=== PATIENT | male | born 1955 | race Caucasian/White ===

== ENCOUNTER 2017-06-18 13:03 | Emergency (ER) | payer MEDICAID, SELFPAY ==
[2017-06-18 13:03] VITALS: BP 172/89; PULSE 114; RESP 14; TEMP 36.9; BMI 20.3
--- NOTE | 2017-06-18 13:08 | RAD_ITS ---
STUDY: X-RAY - RIGHT ANKLE REASON FOR EXAM: Male, 62 years old. Status post fall. TECHNIQUE: 3 view(s) of the ankle. COMPARISON: None. FINDINGS: Normal visualized distal tibia and fibula. Normal medial and lateral malleoli. Normal tibiotalar articulation and ankle mortise. Normal visualized talus and calcaneus. The visualized subtalar, talonavicular, calcaneocuboid and tarsal articulations are normal. The soft tissue structures are unremarkable. RAD/Ankle min 3 Views IMPRESSION: Normal x-ray examination of the ankle. Electronically Signed: Joe Viera MD at 13:35 EST Tel , Service support ,
--- NOTE | 2017-06-18 13:40 | RAD_ITS ---
STUDY: X-RAY - RIGHT FOOT CLINICAL: Male, 62 years old. Foot pain after falling. TECHNIQUE: 3 view(s) of the foot. COMPARISON: None. FINDINGS: There is demineralization of the rear and midfoot bones. Normal visualized subtalar, talonavicular, calcaneocuboid, tarsal and tarsometatarsal articulations. Normal metatarsi. Normal metatarsophalangeal joint of the great toe. Normal tibial and fibular sesamoid bones. Normal interphalangeal joint of the great toe. Normal phalanges of the great toe. Normal second through fifth metatarsophalangeal joints. Normal interphalangeal joints and phalanges of the lesser toes. The soft tissue structures are unremarkable. RAD/Foot min 3 Views IMPRESSION: No demonstrated acute osseous injury. Electronically Signed: Joe Viera MD at 15:21 EST Tel , Service support ,
--- NOTE | 2017-06-18 13:43 | ED.DCSUM_ITS ---
- ER Visit Summary Date of Service: 06/18/17 Chief Complaint: Right ankle pain History of Present Illness: The patient is a 62 M presenting with right lower extremity pain. Patient states that he was walking down the steps and missed a step. He twisted his ankle. He has had painful ambulation since. He states he is able to walk on his heel. He had no medications at home. He does not take anticoagulants. He did not hit his head or lose consciousness. Physical Examination: Vitals are stable. Patient is afebrile. Alert no acute distress. HEENT exam is unremarkable. Lungs are clear and equal bilaterally. Heart is regular rate and rhythm. Extremities right lateral foot tenderness, no ankle or knee tenderness Skin is warm and dry. No focal neurologic deficit. Remainder of exam is unremarkable. Emergency Department Course and Treatment: He was given [place] ?1. Right ankle x -ray was ordered per nursing protocol and was normal. X-ray of the right foot was ordered and shows no acute process. Given an Aircast. Advised to follow- up with his primary care physician. Advised return ED if worsening complaints. Disposition: Discharged home Impression: Right ankle/foot injury This note was generated with [employer] dictation software. It may contain incorrect words, spelling, and punctuation that were not noted in review of the chart prior to signing ED Disposition - Plan for ED Patient: Chief Complaint: Lower Extremity Injury Referrals: Kenn Parra MD [Primary Care Provider] -
[2017-06-18] MEDS: HYDROcodone Bitartrate/Apap 5/325 Tablet PO (14:30)
--- NOTE | 2017-06-18 15:34 | ED.DEP ---
ED Disposition - Plan for ED Patient: Chief Complaint: Lower Extremity Injury Instructions: ED Sprain Ankle W X Ray Referrals: Kenn Parra MD [Primary Care Provider] -
[2017-06-18 15:58] VITALS: BP 158/75; PULSE 82; RESP 16; O2SAT 98
== END 2017-06-18 15:59 | disposition home or self-care (01) ==
PROVIDERS: Emergency Provider Emergency Medicine; Family Provider Family Medicine; PCP Family Medicine
DX: S99.911A Unspecified injury of right ankle, initial encounter (principal); S99.921A Unspecified injury of right foot, initial encounter; I25.10 Atherosclerotic heart disease of native coronary artery without angina pectoris; K21.9 Gastro-esophageal reflux disease without esophagitis; I10 Essential (primary) hypertension; X50.1XXA Overexertion from prolonged static or awkward postures, initial encounter; Y93.01 Activity, walking, marching and hiking; Y92.89 Other specified places as the place of occurrence of the external cause; Y99.8 Other external cause status
CPT/HCPCS: 73610; 73630; 99282

== ENCOUNTER → 2017-07-07 06:44 | Outpatient (CLI) | payer MEDICAID, SELFPAY ==
--- NOTE | 2017-07-07 10:03 | STRESSREP ---
Stress Test Report Pharmacologic myocardial perfusion stress test. 62-year-old man with a history of chest pain. For preoperative evaluation. Patient status post coronary bypass surgery and stenting in 2008. Stress protocol: Resting EKG demonstrates sinus rhythm with a rate of 73 bpm normal intervals and noted resting blood pressure is 132/80 mmHg. 0.4 mg of regadenoson was infused per usual protocol followed by rapid intravenous and flush injection continuous EKG monitoring was performed. The maximum heart rate attained was noted to be 95 bpm is 59% maximum predicted heart rate maximum workload was 1 metabolic equivalent. Patient maintained sinus rhythm throughout the recording at rest there were no ST or T-wave changes noted suggest abnormal flow reserve at peak infusion no ST or T-wave changes were noticed on her flow reserve. Resting blood pressure is 132/80. Myocardial perfusion protocol. 11.2 mCi of technetium 99m sestamibi was injected at rest. 0.4 mg regadenoson was infused per usual protocol. Peak infusion 31.1 mCi of technetium 99m sestamibi was injected stress images were obtained stress and rest images were reconstructed and compared in the short axis vertical long horizontal long axis. Gated images were also obtained next Perfusion SPECT analysis: Review of the stress images demonstrate mildly reduced perfusion noted in the distal anterior wall and apex. The resting images demonstrate improvement suggesting ischemia in the distal anterior wall and apex. No previous infarct is noted. Gated SPECT analysis. The gated ejection fraction is 57%. Conclusion: Abnormal pharmacologic myocardial perfusion stress test with distal anterior wall and apical ischemia. Preserved ejection fraction.
== END ==
PROVIDERS: Family Provider Family Medicine; PCP Family Medicine; Visit Provider Internal Medicine Cardiovascular Disease
DX: I25.10 Atherosclerotic heart disease of native coronary artery without angina pectoris (principal); R07.9 Chest pain, unspecified; I10 Essential (primary) hypertension
CPT/HCPCS: 78452; 93017; A9500; A4216; J2785

== ENCOUNTER → 2017-07-13 07:14 | Day surgery (SDC) | payer MEDICAID, SELFPAY ==
[2017-07-12 10:17] VITALS: BMI 19.8
--- NOTE | 2017-07-13 10:02 | PCM.HP.COS ---
Problem List (1) Chest pain Status: Acute (2) CAD (coronary artery disease) Status: Chronic History of Present Illness Date of Admission: 07/13/17 The patient is a 62 year old M [presents here today for a heart catheterization. He has a history of ischemic heart disease with bypass surgery in 2008. He was evaluated by Dr. Yoel Lemons for preoperative assessment for an upcoming surgery. During that assessment he was noted to have chest discomfort where he needed to use nitroglycerin. He obtained a stress test which was abnormal. Patient states that he has not had any further chest discomfort worries needed to use nitroglycerin. He does have shortness of breath this is not new. He unfortunately does continue to smoke. He does occasionally have lightheadedness or dizziness. He does not have any syncope. He does not have any palpitations. ] Past Medical History Past Medical History (Chronic Problems): Chronic Problems CAD (coronary artery disease) (Chronic) HTN (hypertension) (Chronic) HLD (hyperlipidemia) (Chronic) Allergies No Known Allergies Allergy (Verified 07/12/17 10:39) Home Medications: Ambulatory Orders Medication Instructions Recorded Albuterol Inhaler [Ventolin Hfa 2 puff INHALATION Q4H PRN PRN 07/12/17 (SP)] Aspirin [Aspir-Low] 81 mg PO DAILY 07/12/17 Clopidogrel Bisulfate [Clopidogrel] 75 mg PO DAILY 07/12/17 Fluoxetine [Prozac] 20 mg PO DAILY 07/12/17 Fluticasone/Vilanterol [Breo 1 each IH DAILY 07/12/17 Ellipta 200-25 Mcg INH] Gabapentin [Neurontin] 300 mg PO TIDCM 07/12/17 NIFEdipine [Procardia XL] 90 mg PO DAILY 07/12/17 Nitroglycerin [Nitrostat] 0.4 mg SUBLINGUAL Q5M PRN 07/12/17 Omeprazole [Prilosec] 20 mg PO DAILY 07/12/17 Simvastatin [Zocor] 40 mg PO QHS 07/12/17 Surgical History: appendectomy, coronary bypass surgery, tonsillectomy, - - appendix out, cabg , tonsils out, eye surgery, heart stent before surgery. Lives: Alone Smoking Status: Current every day smoker Tobacco Use: Cigarettes - *Family History Maternal History Items: - - murrrdered Paternal History Items: Cancer, - - lung cancer Sibling History Items: Diabetes Review of Systems Constitutional: Denies: Anorexia, Chills, Fever, Weakness Cardiovascular: Reports: Chest Pain, Chest Pressure, Chest Tightness Respiratory: Reports: Shortness of Breath, Shortness of breath at rest, Shortness of breath upon exertion. Denies: Cough Gastrointestinal: Denies: Abdominal Pain, Diarrhea, Nausea Genitourinary: Denies: Dysuria Musculoskeletal: Reports: Back Pain VTE Information - Inpt Only VTE Present on Admission: No - Physical Exam General: Alert, Oriented x3, Cooperative HEENT: Atraumatic, PERRLA, EOMI, Normocephalic Neck: Supple, No JVD, Carotid Bruits, Bilateral Lungs: Clear to auscultation Cardiovascular: Regular rate, Regular Rhythm, Normal S1, Normal S2, Murmur - soft STEPHANI Abdomen: Soft, Non Tender Extremities: No clubbing, No cyanosis, No edema Weight: 146 lb Body Mass Index (BMI) 19.8 Assessment/Plan 1. coronary artery disease with previous bypass surgery. 2. Hypertension 3 hyperlipidemia 4 obstructive sleep apnea 5 peripheral arterial disease Patient will be undergoing a heart catheterization today for evaluation of his coronary artery disease for his abnormal stress test. Based upon these findings he will be referred back to Dr. Enrique further assessments can be made for upcoming surgery clearance.
--- NOTE | 2017-07-13 10:27 | CL.D_ITS ---
Patient Name: GRACY PONCE Study Date: 07/13/2017 Performing: Sreekanth Liu MD Ht: 72.04 inches 183 cm : 1955 Wt: 145.51 lbs 66 kg Age: 62 Gender: male BSA: 1.86 PROCEDURE(S) PERFORMED [id number]/LV/CABG CLINICAL PROFILE AND INDICATIONS INDICATIONS: Stable Angina CCS Class I Stress/Imaging Stress Test w/SPECT MPI: Yes Result: Positive Intermediate RiskStress Test with SP ECT MPI: Positive Intermediate Risk Angina Classification Anginal Classification w/in 2 Weeks: CCS II CAD Presentations: Unstable angina. Comorbidities/Risk Factors: Current/Recent Smoker (< 1year) Hypertension Dyslipidemia Prior PCI Prior CABG CONCLUSIONS Triple vessel CAD of the LAD, OM, DIAG, RCA Widely patent HOFFMAN to LAD. Widely patent SVG to DIAG#1. Widely patent SVG to OM#1 Widely patent SVG to PDA. Very small Natvie LCX with non obstructive calcified distal LM and ostial LCX. Doubt that PCI would provide much benefit. Normal LV size, wall motion,and systolic function RECOMMENDATIONS ASA Indefinitely Risk factor modification Management as per referring [employer] DESCRIPTION OF PROCEDURE The patient arrived to the procedure lab. The risks and benefits of the procedure as well as a full d escription of our services here and current unavailability of surgical backup were fully explained to the patient and/or their significant other prior to the catheterization. The Timeout was completed, verifying the correct patient and procedure. The patient's procedural site was prepped and draped in the usual fashion. Local anesthetic was given subcutaneously to right groin region with Lidocaine 2%. Using a modified Seldinger technique, arterial access was obtained via the right femoral artery, a 4 Fr sheath was inserted Left Coronary Artery selective angiography was performed in multiple views us ing a 4 Fr. JL5 catheter. Right Coronary Artery selective angiography was then performed in multiple views using a 4 Fr. 3DRC catheter. Saphenous Vein graft to the DIAG 1 selective angiography was perfo rmed in multiple views using a 4 Fr. 3DRC catheter. Saphenous Vein graft to the OM 1 selective angiog pam was performed in multiple views using a 4 Fr. 3DRC catheter. Saphenous Vein graft to the RPDA s elective angiography was performed in multiple views using a 4 Fr. 3DRC catheter. Left internal mamma ry artery graft to the LAD selective angiography was performed in multiple views using a 4 Fr. 3DRC c atheter. Left Ventriculography was performed in BOOTHE projection using a 4 Fr. Pigtail catheter. LV to AO pullback pressures were then recorded.The arterial sheath was pulled and manual compression applie d until hemostasis is achieved. CORONARY ANGIOGRAPHY DOMINANCE: Right Dominant LEFT MAIN: 50 distal % Stenosis LEFT ANTERIOR DECENDING ARTERY: OSTIAL LAD: is occluded CIRCUMFLEX ARTERY: OSTIAL CIRC: 50 % Stenosis RIGHT CORONARY ARTERY: MID RCA: Previously placed stent is occluded GRAFTS: HOFFMAN graft to the LAD is patent Saphenous Vein graft to the 1st Diagonal is patent Saphenous Vein graft to the 1st OM is patent Saphenous Vein graft to the RPDA is patent COMPLICATIONS No Complications PROCEDURE MEDICATIONS Oxygen: 2 L/min via nasal cannula SUMMARY OF HEMODYNAMIC DATA Time AIR REST ECG 07:56:22 AO 125/72 (97) SA 10:04:57 LV 149/-19, 8 10:15:49 LV 147/-21, 8 10:15:55 LVp 144/-20, 4 10:16:05 AOp 145/58 (95) 10:16:10 Signed By Sreekanth Liu MD On 07/13/2017 10:26:35 Sreekanth Liu MD
== END ==
PROVIDERS: Family Provider Family Medicine; PCP Family Medicine; Visit Provider Internal Medicine Cardiovascular Disease
DX: R07.9 Chest pain, unspecified (principal); I25.10 Atherosclerotic heart disease of native coronary artery without angina pectoris; I10 Essential (primary) hypertension; G47.33 Obstructive sleep apnea (adult) (pediatric); E78.5 Hyperlipidemia, unspecified; I73.9 Peripheral vascular disease, unspecified; F17.200 Nicotine dependence, unspecified, uncomplicated; Z79.82 Long term (current) use of aspirin; Z95.1 Presence of aortocoronary bypass graft; Z95.5 Presence of coronary angioplasty implant and graft
CPT/HCPCS: 93459; J7040; C1769; C1894; Q9967

== ENCOUNTER → 2017-08-16 11:12 | Outpatient (CLI) | payer MEDICAID, SELFPAY ==
--- NOTE | 2017-08-16 11:43 | RAD_ITS ---
STUDY: X-RAY CHEST REASON FOR EXAM: Male, 62 years old. PRE OP H/O MT; CABG TECHNIQUE: Frontal and lateral views of the chest. COMPARISON: April 11, 2017. FINDINGS: Multiple median sternotomy wires are noted consistent for cardiac surgery. The lungs are clear and expanded. There is no demonstrated pleural abnormality. Normal size heart. Normal mediastinum and clinton. Normal visualized pulmonary arteries. Normal visualized aortic arch and descending thoracic aorta. Normal visualized thoracic spine. Normal visualized ribs, clavicles, and shoulders. There is no demonstrated abnormality of the visualized soft tissue structures of the upper abdomen. RAD/Chest PA and Lateral IMPRESSION: Normal x-ray examination of the chest. Electronically Signed: Raj Christianson MD at 16:53 EDT , Service support ,
[2017-08-16 12:01] LABS: Hematocrit 36.9 % (40-54); Hemoglobin 12.2 g/dl (13.0-16.5); Mean Corp Hgb Conc 33.1 g/gl (32-36); Mean Corpuscular Hgb 32.4 pg (27.0-32.0); Mean Corpuscular Volume 97.9 fL (80-94); Mean Platelet Vol. 9.3 fl (6.2-12.0); Platelet Count 355 K/mm3 (150-450); RBC Distribution Width CV 13.9 % (11.6-14.6); RBC Distribution Width SD 50.2 fl (35.1-43.9); Red Blood Count 3.77 M/mm3 (4.6-6.2); Scan Indicated on CBC? Y/N NO; White Blood Count 8.1 K/mm3 (4.4-11.0)
[2017-08-16 12:43] LABS: Anion Gap 6 (5-15); BUN 9 mg/dL (7-18); BUN/Creat Ratio 12.4 RATIO (10-20); Calcium,Total 9.2 mg/dL (8.5-10.1); Chloride 104 mmol/L (98-107); Creatinine, Serum 0.73 mg/dL (0.70-1.30); EST Glomerular Filtration Rate 117 mL/min (>60); Est Glom Filt Rate - Afr Amer 141 mL/min (>60); Glucose 94 mg/dL (74-106); Sodium Level 137 mmol/L (136-145)
--- NOTE | 2017-08-16 17:02 | EKG12_ITS ---
Test Reason : PRE-OP Blood Pressure : / mmHG Vent. Rate : 061 BPM Atrial Rate : 061 BPM P-R Int : 154 ms QRS Dur : 084 ms QT Int : 400 ms P-R-T Axes : 073 052 067 degrees QTc Int : 402 ms Normal sinus rhythm Possible Left atrial enlargement Borderline ECG When compared with ECG of 30-DEC-2016 22:16, QT has shortened Confirmed by DALE WEBB ([id number]), senior editor WYATT WILLARD ([id number]) on 08/17/2017 10:42:44 AM Referred By: Juanjo Nathan Confirmed By:DALE WEBB
== END ==
PROVIDERS: Family Provider Family Medicine; PCP Family Medicine; Visit Provider Physician Assistant
DX: Z01.818 Encounter for other preprocedural examination (principal); Z01.810 Encounter for preprocedural cardiovascular examination; F17.200 Nicotine dependence, unspecified, uncomplicated
CPT/HCPCS: 36415; 71046; 80048; 85027; 93005

== ENCOUNTER 2017-09-07 20:52 | Emergency (ER) | payer MEDICAID, SELFPAY ==
[2017-09-07 20:53] VITALS: BP 152/93; PULSE 84; RESP 18; TEMP 36.7; O2SAT 98; BMI 20.3
--- NOTE | 2017-09-07 21:04 | CT_ITS ---
STUDY: CT BRAIN WITHOUT CONTRAST REASON FOR EXAM: Male, 62 years old. Trauma RADIATION DOSAGE (If Supplied By Facility): CTDIvol = ( 44.99 ) mGy, DLP = ( 812.98 ) mGycm TECHNIQUE: Transaxial CT imaging of the brain was performed without administration of intravenous contrast material. Individualized dose optimization techniques were used for this CT. COMPARISON: April 26, 2016 FINDINGS: Normal soft tissue structures. Normal calvarium. Calcification of the cavernous carotids. Mild atrophy and moderate periventricular white matter ischemic changes.. Normal basal ganglia and thalami. Normal brainstem. Normal cerebellum. There is no intracranial hemorrhage. There are no findings of an acute ischemic infarction. There are postsurgical changes of the orbits. There is prominent mucosal thickening of the maxillary sinuses CT/Brain/Head without Contrast IMPRESSION: Moderate periventricular white matter ischemic changes. No evidence for acute intracranial bleed Electronically Signed: Dontae Weaver MD at 21:55 EDT , Service support ,
[2017-09-07] MEDS: Diphth,Pertuss(Acell),Tet Vac 0.5 ML Vial IM (21:20)
[2017-09-07] MEDS: Ondansetron 4 MG/2 ML Vial IV (21:21)
--- NOTE | 2017-09-07 22:39 | ED.VISSUMM ---
- ER Visit Summary Date of Service: 09/07/17 Chief Complaint: Serena from sitting position and fell to the ground. History of Present Illness: The patient is a 62 M who admits to drinking a lot and fell when he serena from a sitting position. He fell backwards hitting his head. He awoke on the floor. Last tetanus shot unknown. He complains of blurred vision, headache and nausea and vomiting. He denies neck pain. He denies paresthesia, anesthesia or motor weakness. He denies any cardiac respiratory symptoms. He denies nausea or vomiting. He denies any urologic symptoms. Denies history of bruising easily. He is on no anticoagulant. Please read written note for complete detail Physical Examination: Vital signs are marked for an elevated blood pressure 152/93. There is a 1.3 cm scalp laceration right parietal region. There is no hemotympanum. No CSF otorrhea Grant. Pupils equal round reactive. He has nystagmus. Conjunctivae is pink. Nares patent with no septal deviation hematoma. There is no evidence of bleeding. There is no TMJ tenderness and he has no evidence of malocclusion. Trachea is midline. He has no cervical spine tenderness. Heart is regular without murmur, gallop or rub. S1 and S2 are normal. Lungs are clear to auscultation with good movement of air bilaterally. Abdomen is soft nontender. GCS is 15. Patient is alert and oriented ?3. Motor is 5/5. Sensation is intact. DTRs are symmetric without clonus or Babinski. Cranial nerves II through XII are intact. Finger to nose to finger was performed adequately. There was slight past pointing. Test Results: CT of the head was obtained which reveals no evidence of intracranial bleed or fracture. He does have because of thickening of his maxillary sinuses. Alcohol level is 308 Emergency Department Course and Treatment: Because patient fell elderly with loss of conscious CT of the head was obtained to rule out intracranial bleed. Tetanus immunization was updated. The laceration was prepped draped sterile manner. The wound was irrigated. The wound was anesthetized with lidocaine. 3 devon were placed. Treatment Plan: He will go home with his daughters who will watch him throughout the night. He was given appropriate home-going instructions. Disposition: Discharged to home with family Impression: 1. Concussion with loss of consciousness 2. 1.3 cm scalp laceration 3. Alcohol intoxication 4. History of coronary disease 5. History of COPD 6. History hypertension This note was generated with [employer] dictation software. It may contain incorrect words, spelling, and punctuation that were not noted in review of the chart prior to signing ED Disposition - Plan for ED Patient: Disposition: Home or Assisted Living Chief Complaint: Head Injury Instructions: ED Concussion, ED Laceration Scalp Stitch Or Stap Referrals: Kenn Parra MD [Primary Care Provider] - 7 Days for suture removal
[2017-09-07 22:49] VITALS: BP 145/80; PULSE 70; RESP 14; O2SAT 98
== END 2017-09-07 22:53 | disposition home or self-care (01) ==
PROVIDERS: Emergency Provider Emergency Medicine; Family Provider Family Medicine; PCP Family Medicine
DX: S06.0X1A Concussion with loss of consciousness of 30 minutes or less, initial encounter (principal); W01.198A Fall on same level from slipping, tripping and stumbling with subsequent striking against other object, initial encounter; Y93.9 Activity, unspecified; Y92.9 Unspecified place or not applicable; Y99.9 Unspecified external cause status; S01.01XA Laceration without foreign body of scalp, initial encounter; F10.129 Alcohol abuse with intoxication, unspecified; Y90.8 Blood alcohol level of 240 mg/100 ml or more; I25.10 Atherosclerotic heart disease of native coronary artery without angina pectoris; J44.9 Chronic obstructive pulmonary disease, unspecified; I10 Essential (primary) hypertension; E78.00 Pure hypercholesterolemia, unspecified; Z72.0 Tobacco use; H55.00 Unspecified nystagmus
CPT/HCPCS: 12001; 70450; 80320; 90471; 90715; 99285; G0480; J2405

== ENCOUNTER 2018-02-13 12:12 | Day surgery (SDC) | payer MEDICAID, SELFPAY ==
--- NOTE | 2018-02-12 07:36 | PCM.HP.BLA ---
History and Physical Date of Admission: 02/13/18 HISTORY AND PHYSICAL ? Asuncion Tavera 1955 ? REFERRING PHYSICIAN: ??Kenn Parra MD ? CHIEF COMPLAINT: ??Consult (colonoscopy) ? HPI: The patient is a 62 year old male referred for endoscopy. ?Asuncion notes no history of colon complaints. ?He?denies any change in bowel habits, weight changes, blood in stools, black tarry stools or abdominal pain. ?Denies any known family history of colon cancer. ?He has never had a screening colonoscopy. ? The patient notes symptomatic acid reflux in the morning with heartburn and coughing, x years. ?He has smoked cigars for many years, currently 1/2 pack per day with no interest in quitting. ?He notes also that he has been drinking since I was 13. ?States he used to drink 4-5 cans of beer daily but recently has cut back on his drinking significantly. ?He states he has only had two drinks in the last two weeks. ?He has never had upper endoscopy. ? The patient is being seen by me today at the request of Dr. Parra?for my opinion and advice regarding screening colonoscopy. ?Patient's past medical history is significant for coronary artery disease, hypertension, past NH and CABG x 4, stented coronary artery, COPD. ?He follows with Dr. Parra for his chronic medical conditions and with Dr. Lemons in cardiology. ?He states he does follow with a car rental clerk as well but is unsure who this is. ? ? PAST?MEDICAL?HISTORY PAST MEDICAL HISTORY Diagnosis Date ? CAD (coronary artery disease) 2008 ? Hypertension ? ? NH (myocardial infarction) ([facility]) 2008 ? Raynaud phenomenon ? ? decreased beta sascha and added procardia to help ? S/P CABG x 4 2008 ? Stented coronary artery 2008 ? ? PAST?SURGICAL?HISTORY PAST SURGICAL HISTORY Procedure Laterality Date ? APPENDECTOMY ? ? ? CABG (4) VEIN GRAFTS & ARTERIAL GRAFT(S) ? 2008 ? [facility] ? CATARACT EXTRACTION HX Bilateral ? ? PAST SURGICAL HISTORY OF Right ? ? release trigger finger ? REMOVAL OF TONSILS; AGE 12 OR OVER ? CURRENT?MEDICATIONS ? Current Outpatient Prescriptions: gabapentin (NEURONTIN) 300 mg capsule TAKE 1 CAPSULE BY MOUTH THREE TIMES DAILY NIFEdipine ER (PROCARDIA XL) 90 mg 24 hr tablet Take 1 tablet by mouth once daily. VENTOLIN HFA 90 mcg/actuation inhaler Inhale 2 Puffs as instructed every 4 hours as needed. omeprazole (PRILOSEC) 20 mg capsule TAKE 1 TABLET EVERY DAY BREO ELLIPTA 200-25 mcg/dose inhaler Inhale 1 Inhalation as instructed once daily. DO NOT CLICK OPEN UNTIL READY FOR DOSE isosorbide mononitrate ER (IMDUR) 30 mg 24 hr tablet Take 1 tablet by mouth once daily. FLUoxetine (PROZAC) 20 mg capsule TAKE 1 CAPSULE EVERY DAY nitroglycerin sublingual (NITROQUICK) 0.4 mg SL tablet Dissolve 1 tablet under the tongue as needed. for chest pain, if no pain relief within 5 minutes contact 911 aspirin, enteric coated (ECOTRIN LOW STRENGTH) 81 mg EC tablet Take 1 tablet by mouth once daily. atorvastatin (LIPITOR) 80 mg tablet Take 0.5 tablets by mouth daily at bedtime. ? No current facility-administered medications for this visit. ? ALLERGIES: Patient has no known allergies. ? PERSONAL HISTORY: SOCIAL?HISTORY Social History ??Marital status: Single ?Spouse name: ?Years of education: ?Number of children: ? Social History Main Topics ??Smoking status: Current Every Day Smoker ?Packs/day: 0.50 ?Years: 40.00 ?Types: Cigarettes ??Smokeless tobacco: Never Used ?Alcohol use: Yes ?Comment: drinks about a couple beer a day ??Drug use: No ? FAMILY HISTORY: FAMILY?HISTORY FAMILY HISTORY Problem Relation Age of Onset ? Cancer Father ?unkown primary-started in his axilla. ? other (murdered) Mother ? ? Colon Cancer Brother ? ? Diabetes Brother ? ? Diabetes Sister ? ? Diabetes Brother ? ? Diabetes Brother ? ? REVIEW OF SYMPTOMS: ??The review of systems data was entered by the nurse and reviewed by me ? Nursing Notes: Amirah Griffin RN ?12/12/2017 ?2:32 PM ?Signed REVIEW OF SYSTEMS: ?General:???The patient denies fatigue, denies weight loss, denies weight gain, notes feeling hot, and denies feelings of cold. ?Eyes: ?The patient denies glaucoma, notes eye injury/surgery, wears glasses or contacts. ?Ear/Nose/Throat: ?The patient denies allergies, denies hayfever, denies ear infections, and denies bloody noses. ?Cardiovascular: ?The patient denies chest pain, notes heart disease, notes high blood pressure,notes cardiac stent, notes prior heart attack, denies irregular heart beat, notes high cholesterol, ?notes poor circulation, denies heart failure, other cardiac issues, notes claudication, denies cold feet, denies peripheral arterial stent. ?Respiratory: ?The patient denies tuberculosis, denies pneumonia, notes frequent cough, denies pulmonary embolism, notes shortness of breath, and denies coughing up blood. ?Gastrointestinal: ?The patient denies difficulty swallowing, notes acid reflux, denies ulcers, denies vomiting, denies jaundice/hepatitis, denies gallbladder problems, denies black or tarry stools, denies hemorrhoids, denies bleeding from rectum, denies diverticulitis, denies constipation, denies diarrhea, denies loss of stool control, and denies hernias. ?Kidney/Bladder: ?The patient denies kidney stones, denies urine infections, and denies bloody urine. ?Skin: ?The patient denies a history of skin cancer, denies bleeding/changing moles, and denies a history of skin rash. ?Neurologic: ?The patient denies a history of epilepsy/convulsions, denies headaches, denies head/spinal injuries, and denies stroke/TIA. ?Psychiatric: ?The patient denies psychiatric medications, denies depression, and denies voices, denies substance abuse. ?Endocrine: ?The patient denies thyroid disorders, denies diabetes, and denies hormonal problems. ?Hematologic: ?The patient denies a history of bruising, denies bleeding, and denies anemia, denies blood clots. ?Infections: ?The patient denies a history of measles and mumps, denies rheumatic fever, and denies sexually transmitted diseases. ?Musculoskeletal: ?The patient denies back pain/injury, denies back problems, denies sciatica, NOTES knee/foot trouble, denies arthritis, or denies gout. ? ? When was patient's last Mammogram screening? N/A ? ?Last Colonoscopy: ?no ? Amirah Griffin RN? I have confirmed and edited as necessary, the PFSH and ROS obtained by others. ? ? PHYSICAL EXAMINATION: ? General: ?The patient is 62 year old male, thin in appearance, well hydrated in no acute distress. ?The patient is oriented to time, place, and person. ? VITALS: Blood pressure 128/64, pulse 76, weight 65.7 kg (144 lb 12.8 oz).?Body mass index is 19.64 kg/m?.? ? HEENT: ?Normal cephalic, ataumatic, pupils are equally round, sclera are anicteric, mucous membranes are moist, oropharynx is clear. ?Neck has no masses, asymmetry or lymphadenopathy. ? ? Respiratory: ?Clear to auscultation and percussion. ?Normal respiratory excursion and pattern. ? Cardiac: ?Examination is regular rate and rhythm. ? Abdominal exam: ?Soft, nontender, ?with no palpable masses. ?No hepatosplenomegaly. ?No palpable hernias. ? Rectal exam: exam deferred ? Extremities: ?no clubbing, cyanosis or edema. ?No adenopathy. ? Other: ? LABORATORY VALUES: As Noted ? RADIOLOGIC STUDIES: ?As Noted ? Assessment ? IMPRESSION: encounter for screening colonoscopy. ?GERD and long-term history of tobacco and alcohol use, recommend EGD in addition to colonoscopy ? PLAN: ?We will plan for upper and lower?endoscopy with MAC. ??We discussed the risks and benefits of the planned endoscopy. ?I have informed the patient that complications can occur including failure to complete the endoscopy and perforation. ?The patient had the opportunity to ask questions concerning the planned endoscopy. ?My staff has also explained the procedure to the patient in understandable terms and has given the patient printed material concerning the procedure. ?The patient freely consents to surgery. ? I plan to use golytely bowel preparation for endoscopy ? I plan for monitored anesthetic care.?? ? Diagnoses: (Z12.11) Encounter for screening for malignant neoplasm of colon ?(primary encounter diagnosis) (I25.119) Coronary artery disease involving upper [place] heart with angina pectoris, unspecified vessel or lesion type (HCC) (F10.10) ETOH abuse (K21.9) Gastroesophageal reflux disease, esophagitis presence not specified ? My findings have been communicated to Dr. Parra?via shared medical record. ?This note will be forwarded to Dr. Kenn Parra MD. ?? Return to Clinic: The patient is instructed to follow-up with me 1 week post operatively. ? I spent 30?minutes in the visit, with more than 50% of the total [id number] time of the visit in counseling / coordination of care. ? ? Norma Calvillo PA-C
[2018-02-13] VITALS (7 sets, daily range): BP systolic 109–136; BP diastolic 60–77; PULSE 77–98; RESP 16–17; TEMP 36.6–37.6; O2SAT 97–99; BMI 18.8
--- NOTE | 2018-02-13 13:25 | OP.ENDO_ITS ---
Patient Name: Asuncion Tavera Procedure Date: 02/13/2018 1:08 PM Date of : 1955 Age: 62 Procedure: Colonoscopy Indications: Screening for colorectal malignant neoplasm Providers: Rex Loza MD Medicines: Monitored Anesthesia Care Patient Profile: This is a 62 year old male. Refer to note in patient chart for documentation of history and physical. Last Colonoscopy: none. The patient's first colonoscopy is today. Complications: No immediate complications. Procedure: Pre-Anesthesia Assessment: - Prior to the procedure, a History and Physical was performed, and patient medications and allergies were reviewed. The patient is competent. The risks and benefits of the procedure and the sedation options and risks were discussed with the patient. All questions were answered and informed consent was obtained. Patient identification and proposed procedure were verified by the physician, the nurse and the addressograph operator in the procedure room. Mental Status Examination: alert and oriented. Airway Examination: normal oropharyngeal airway and neck mobility. Respiratory Examination: clear to auscultation. CV Examination: normal. Prophylactic Antibiotics: The patient does not require prophylactic antibiotics. Prior Anticoagulants: The patient has taken no previous anticoagulant or antiplatelet agents. ASA Grade Assessment: III - A patient with severe systemic disease. After reviewing the risks and benefits, the patient was deemed in satisfactory condition to undergo the procedure. The anesthesia plan was to use monitored anesthesia care (MAC). Immediately prior to administration of medications, the patient was re-assessed for adequacy to receive sedatives. The heart rate, respiratory rate, oxygen saturations, blood pressure, adequacy of pulmonary ventilation, and response to care were monitored throughout the procedure. The physical status of the patient was re-assessed after the procedure. After I obtained informed consent, the scope was passed under direct vision. Throughout the procedure, the patient's blood pressure, pulse, and oxygen saturations were monitored continuously. The Colonoscope was introduced through the anus and advanced to 3 cm into the ileum. The colonoscopy was performed without difficulty. The patient tolerated the procedure well. The quality of the bowel preparation was good. Moderate Sedation: Moderate (conscious) sedation was personally administered by an anesthesia professional. The following parameters were monitored: oxygen saturation, heart rate, blood pressure, and response to care. Scope In: 1:10:56 PM Scope Withdrawal Time 0 hours 4 minutes 19 seconds Scope Out: 1:20:01 PM Total Procedure Duration Time 0 hours 9 minutes 5 seconds Findings: The perianal and digital rectal examinations were normal. The entire examined colon appeared normal on direct and retroflexion views. Impression: - The entire examined colon is normal on direct and retroflexion views. - No specimens collected. Recommendation: - Discharge patient to home. - Resume previous diet. - Continue present medications. - Repeat colonoscopy in 10 years for screening purposes. - Return to physician certified registered dental assistant. Procedure Code(s): --- Professional --- G0121, Colorectal cancer screening; colonoscopy on individual not meeting criteria for high risk CPT copyright 2017 [employer]. All rights reserved. The codes documented in this report are preliminary and upon hydro pneumatic tester review may be revised to meet current compliance requirements. Rex Loza MD 02/13/2018 1:24:46 PM This report has been signed electronically. Number of Addenda: 0 Note Initiated On: 02/13/2018 1:08 PM
--- NOTE | 2018-02-13 13:27 | OP.ENDO_ITS ---
Patient Name: Asuncion Tavera Procedure Date: 02/13/2018 12:48 PM Date of : 1955 Age: 62 Procedure: Upper GI endoscopy Indications: Follow-up of gastro-esophageal reflux disease Providers: Rex Loza MD Medicines: Monitored Anesthesia Care Patient Profile: This is a 62 year old male. Refer to note in patient chart for documentation of history and physical. Complications: No immediate complications. Procedure: Pre-Anesthesia Assessment: - Prior to the procedure, a History and Physical was performed, and patient medications and allergies were reviewed. The patient is competent. The risks and benefits of the procedure and the sedation options and risks were discussed with the patient. All questions were answered and informed consent was obtained. Patient identification and proposed procedure were verified by the physician, the nurse and the driver guard in the procedure room. Mental Status Examination: alert and oriented. Airway Examination: normal oropharyngeal airway and neck mobility. Respiratory Examination: clear to auscultation. CV Examination: normal. Prophylactic Antibiotics: The patient does not require prophylactic antibiotics. Prior Anticoagulants: The patient has taken aspirin, last dose was day of procedure. ASA Grade Assessment: III - A patient with severe systemic disease. After reviewing the risks and benefits, the patient was deemed in satisfactory condition to undergo the procedure. The anesthesia plan was to use monitored anesthesia care (MAC). Immediately prior to administration of medications, the patient was re-assessed for adequacy to receive sedatives. The heart rate, respiratory rate, oxygen saturations, blood pressure, adequacy of pulmonary ventilation, and response to care were monitored throughout the procedure. The physical status of the patient was re-assessed after the procedure. After obtaining informed consent, the endoscope was passed under direct vision. Throughout the procedure, the patient's blood pressure, pulse, and oxygen saturations were monitored continuously. The gastroscope was introduced through the mouth, and advanced to the jejunum. The upper GI endoscopy was accomplished without difficulty. The patient tolerated the procedure well. Scope In: 1:03:44 PM Scope Out: 1:07:03 PM Total Procedure Duration Time 0 hours 3 minutes 19 seconds Findings: The examined jejunum was normal. The in the duodenum was normal. The entire examined stomach was normal. Biopsies were taken with a cold forceps for histology. The gastroesophageal junction was normal. Biopsies were taken with a cold forceps for histology. No endoscopic abnormality was evident in the esophagus to explain the patient's complaint of dysphagia. Biopsies were taken with a cold forceps for histology. Impression: - Normal examined jejunum. - Normal. - Normal stomach. Biopsied. - Normal gastroesophageal junction. Biopsied. - No endoscopic esophageal abnormality to explain patient's dysphagia. Biopsied. Recommendation: - Return to physician front office assistant in 1 week. - Continue present medications. Procedure Code(s): --- Professional --- 63413, Esophagogastroduodenoscopy, flexible, transoral; with biopsy, single or multiple CPT copyright 2017 [employer]. All rights reserved. The codes documented in this report are preliminary and upon production estimator review may be revised to meet current compliance requirements. Rex Loza MD 02/13/2018 1:27:04 PM This report has been signed electronically. Number of Addenda: 0 Note Initiated On: 02/13/2018 12:48 PM
--- NOTE | 2018-02-13 13:30 | IMM_PTH ---
PATIENT: GRACY PONCE LOC: EN U#:[id number] AGE/SX: 62/M ROOM: RE02/13/[address]: Dr. Rex Loza MD : 1955 BED: DIS: 02/13/2018 SPEC #: [id number] RECD: 02/15/18 10:29 STATUS: PITA REQ #: [id number] LORA: 02/13/18 13:[address]: Rex Loza DEPT: IMMUNOHISTOCHEMISTRY RECD BY: Brigette Tobias ENTERED: 02/15/18 10:30 SP TYPE: IMMUNO OTHR DR: Dr. Kenn Parra MD Tissues: A - Stomach, NOS Procedures: H Pylori (initial) PHYSICIAN & INSTITUTION [place] [id number] SPECIMEN INFORMATION: Tissue Source: A - Antral biopsy Clinical Info: Screening, GERD, esophagitis Specimen Number: [id number] CPT code: 00596 METHODOLOGY: Deparaffinized sections of prefer/formalin-fixed tissue or PAP/DQ stained slides are incubated with monoclonal/polyclonal antibodies/oligonucleotide probes. Localization is made via biotin free immunoperoxidase method. Appropriate controls are performed and reacted as expected. Results on target cell population are indicated in the following table: RESULTS: ANTIBODY / CLONE RESULT Block A H Pylori (polyclonal) negative These tests were developed and their performance characteristics determined by [facility]. They may not have been cleared or approved by the U.S. Food and Drug Administration. The FDA has determined that such clearance or approval is not necessary. INTERPRETATION: A. Antral biopsy: Negative for Helicobacter pylori organisms. SJ:breanna 02/15/18
--- NOTE | 2018-02-13 13:30 | GASB_PTH ---
PATIENT: GRACY PONCE LOC: EN U#:[id number] AGE/SX: 62/M ROOM: RE02/13/[address]: Dr. Rex Loza MD : 1955 BED: DIS: 02/13/2018 SPEC #: [id number] RECD: 02/13/18 16:36 STATUS: PITA KEILA #: [id number] LORA: 02/13/18 13:[address]: Rex Loza DEPT: SURGICAL PATHOLOGY RECD BY: Rex Mares ENTERED: 02/14/18 11:49 SP TYPE: Gastric Bx OTHR DR: Dr. Kenn Parra MD Tissues: A - Gastric mucous membrane B - Gastric mucous membrane C - Esophageal mucous membrane Procedures: Special Stain Group II Surgery Specimen Level IV Alcian Blue/PAS (control) HEADER OPERATION: [place]oscopy[place] [place] DIAGNOSIS: Screening, GERD, esophagitis TISSUE SUBMITTED: A - Biopsy of antrum for H. pylori and path, B - GE junction biopsy, C - Mid esophagus biopsy MICROSCOPIC DIAGNOSIS A. Antrum, biopsy: Mild gastritis. See microscopic description and comment. B. GE junction, biopsy: A fragment of gastroesophageal mucosa with chronic inflammation. Intestinal metaplasia (goblet cell metaplasia) is not identified. See comment. C. Mid esophagus, biopsy: A fragment of squamous epithelium with mild chronic inflammation. SJ:rg 02/15/18 COMMENT A. The results of immunohistochemistry for Helicobacter pylori will be reported separately ([id number]). B. The specimen predominantly consists of squamous epithelium. Alcian blue/PAS stain with matched control is used in the evaluation of the specimen. MICROSCOPIC DESCRIPTION Slides are reviewed. A. The specimen shows fragments of gastric mucosa with chronic inflammatory cell infiltrates in the lamina propria consisting of lymphocytes and plasma cells, consistent with mild chronic gastritis. GROSS DESCRIPTION A - Received in fixative is one container labeled with the patient's name and designated antral biopsy for H. pylori and path. The specimen consists of one irregular fragment of light olivo soft tissue that measures 0.3 x 0.3 x 0.1 cm. The specimen is totally submitted in one cassette. B - Received in fixative is one container labeled with the patient's name and designated GE junction biopsy. The specimen consists of one irregular fragment of light olivo soft tissue that measures 0.4 x 0.3 x 0.1 cm. The specimen is totally submitted in one cassette. C - Received in fixative is one container labeled with the patient's name and designated mid esophagus biopsy. The specimen consists of one irregular fragment of light olivo soft tissue that measures 0.6 x 0.3 x 0.1 cm. The specimen is totally submitted in one cassette. / SJ:rg 02/14/18 TC:3 CPT: 81427 x3, 61577
== END 2018-02-13 14:10 | disposition home or self-care (01) ==
LOC: EN 12:13 → AC 12:14
PROVIDERS: Family Provider Family Medicine; PCP Family Medicine; Referring Provider Surgery; Visit Provider Surgery
PROC: 0DJD8ZZ Inspection of Lower Intestinal Tract, Via Natural or Artificial Opening Endoscopic (ICD-10-PCS; CPT 45378; principal; 2018-02-13 13:25)
DX: Z12.11 Encounter for screening for malignant neoplasm of colon (principal); K29.50 Unspecified chronic gastritis without bleeding; K21.9 Gastro-esophageal reflux disease without esophagitis; I25.119 Atherosclerotic heart disease of native coronary artery with unspecified angina pectoris; F10.10 Alcohol abuse, uncomplicated; I10 Essential (primary) hypertension; I73.00 Raynaud's syndrome without gangrene; Z87.891 Personal history of nicotine dependence; Z95.1 Presence of aortocoronary bypass graft
CPT/HCPCS: 43239; G0121; 88305; 88313; 88342; J7120

== ENCOUNTER 2018-03-21 19:56 | Inpatient (IN) | payer MEDICAID, SELFPAY ==
[2018-03-21 19:57] VITALS: BP 172/95; PULSE 94; RESP 15; TEMP 36.7; O2SAT 100; BMI 19.2
[2018-03-21 20:03] VITALS: BP 132/78; PULSE 88; RESP 23; O2SAT 99
--- NOTE | 2018-03-21 20:12 | ED.RN ---
PT NOW COMPLAINS OF LEFT SHOULDER PAIN, HAVING EPISODES OF ENTIRE BODY TREMORS, HOWEVER REMAINS VERBAL AND ABLE TO ANSWER QUESTIONS DURING EPISODES. PT STATES MY WHOLE BODY FEELS FUNNY. NOTIFIED, CALL FOR EKG.
--- NOTE | 2018-03-21 20:39 | EKG12_ITS ---
Test Reason : ALT LOC Blood Pressure : / mmHG Vent. Rate : 085 BPM Atrial Rate : 085 BPM P-R Int : 178 ms QRS Dur : 080 ms QT Int : 384 ms P-R-T Axes : 051 057 074 degrees QTc Int : 456 ms Normal sinus rhythm Normal ECG Confirmed by VICTORINA HOLT, LEONILA ([id number]), electronic news gathering editor MICHAEL MURRAY ([id number]) on 03/24/2018 2:19:37 PM Referred By: STEPHANIE/MARINA Confirmed By:LEONILA PRAJAPATI MD
--- NOTE | 2018-03-21 20:39 | CT_ITS ---
STUDY: CT BRAIN WITHOUT CONTRAST REASON FOR EXAM: Male, 62 years old. Altered loss of consciousness. RADIATION DOSAGE (If Supplied By Facility): CTDIvol = ( 44.99 ) mGy, DLP = ( 779.24 ) mGycm TECHNIQUE: Transaxial CT imaging of the brain was performed without administration of intravenous contrast material. Individualized dose optimization techniques were used for this CT. COMPARISON: September 07, 2017 FINDINGS: Normal soft tissue structures. Normal calvarium. There is mild cerebral atrophy with widening of the extra-axial spaces and ventricular dilatation. There are areas of decreased attenuation within the white matter tracts of the supratentorial brain, consistent with microvascular disease changes. Normal basal ganglia and thalami. Normal brainstem. There is mild cerebellar atrophy. There is no intracranial hemorrhage. There are no findings of an acute ischemic infarction. Normal visualized paranasal sinuses. CT/Brain/Head without Contrast IMPRESSION: Chronic involutional changes of the brain. Small vessel ischemia. Electronically Signed: Muriel Mishra MD at 21:27 EST Tel , Service support ,
[2018-03-21] MEDS: 0.9% Normal Saline 1,000 ML 150 ML IV (20:47)
--- NOTE | 2018-03-21 20:55 | RAD_ITS ---
STUDY: X-RAY CHEST REASON FOR EXAM: Male, 62 years old. Altered loss of consciousness. TECHNIQUE: 2 frontal images of the chest were obtained. COMPARISON: August 16, 2017 FINDINGS: The lungs are hyperinflated. There is no new focal consolidation. Sternal cerclage wires are present from a prior sternotomy. The cardiomediastinal silhouette is stable. Normal visualized thoracic spine. Normal visualized ribs, clavicles, and shoulders. There is no demonstrated abnormality of the visualized soft tissue structures of the upper abdomen. RAD/Chest 1 View (Portable) IMPRESSION: Stable examination demonstrating no acute cardiopulmonary process. Electronically Signed: Muriel Mishra MD at 21:30 EST Tel , Service support ,
[2018-03-21 20:59] LABS: Bacteria 0 SEEN /hpf (None Seen); Mucous, Urine 0 SEEN /hpf (<or=2+); Red Blood Cells-Urine 0 SEEN /hpf (0-5); Squamous Epithelial Cells - UA 0 SEEN /hpf (0-5); White Blood Cells 0 SEEN /hpf (0-5)
[2018-03-21 21:13] LABS: Color, Urine Straw (Yellow); Glucose, Dipstick Normal (Normal); Ketone-Dipstick Negative (Negative); Leukocyte Esterase-Dipstick Negative /ul (Negative); Nitrite-Dipstick Negative (Negative); Occult Blood-Urine Negative /ul (Negative); Protein-Dipstick Negative (Negative); Specific Gravity, Urine 1.005 (1.002-1.030); Urine Bilirubin Dipstick Negative (Negative); Urine Clarity Clear (Clear); Urine Urobilinogen Normal (Normal); Urine pH 6.5 (5.0 - 8.0)
[2018-03-21 21:20] LABS: Absolute Lymphocyte Count 3.56 X10^3/ul (0.83-4.51); Absolute Neutrophil Count 3.8 X10^3/uL (2.0-7.7); Basophil# 0.12 X10^3/uL; Basophil% 1.4 % (0-1); Eosinophil# 0.32 X10^3/uL; Eosinophils% 3.6 % (0-5); Hematocrit 38.9 % (40-54); Hemoglobin 13.7 g/dl (13.0-16.5); Lymphocyte # 3.56 X10^3/ul (4.0); Lymphocyte % 40.5 % (19-41); Mean Corp Hgb Conc 35.2 g/gl (32-36); Mean Corpuscular Hgb 33.7 pg (27.0-32.0); Mean Corpuscular Volume 95.6 fL (80-94); Monocyte# 1.01 X10^3/uL; Monocyte% 11.5 % (0-10); Neutrophil # 3.75 X10^3/uL (2.7-7.7); Neutrophil % 42.8 % (47-70); POSITIVE COUNT NO; POSITIVE DIFFERENTIAL NO; POSITIVE MORPHOLOGY NO; Platelet Count 332 K/mm3 (150-450); RBC Distribution Width CV 14.9 % (11.6-14.6); RBC Distribution Width SD 52.2 fl (35.1-43.9); Red Blood Count 4.07 M/mm3 (4.6-6.2); White Blood Count 8.8 K/mm3 (4.4-11.0)
--- NOTE | 2018-03-21 21:20 | ED.RN ---
THIS RN CALLED TO PT'S ROOM, FAMILY CONCERNED HE IS HAVING ANOTHER SEIZURE. PT OBSERVED WITH TWITCHING MOVEMENTS, IMMEDIATELY MAKES EYE CONTACT WITH RN, ANSWERS QUESTIONS APPROPRIATELY, MOVEMENT CEASES ALMOST IMMEDIATELY. VITAL SIGNS STABLE. MD AWARE.
[2018-03-21 21:21] LABS: Amphetamine Urine VISTA NEGATIVE (<1000 ng/mL); Barbiturate Urine VISTA NEGATIVE (< 200 ng/mL); Benzodiazepine Urine VISTA NEGATIVE (< 200 ng/mL); Cocaine Urine VISTA NEGATIVE (< 300 ng/mL); Ecstacy Urine VISTA NEGATIVE (< 500 ng/mL); Methadone Urine VISTA NEGATIVE (< 300 ng/mL); PCP Urine VISTA NEGATIVE (< 25 ng/mL); THC Urine VISTA NEGATIVE (< 50 ng/mL); Vista UDS pH Range 6
[2018-03-21 21:24] LABS: ALB/GLOB Ratio 0.8 RATIO (0.9-2.4); AST(SGOT) 47 U/L (15-37); Alanine Aminotransfer ALT/SGPT 31 U/L (16-61); Albumin, Serum 3.3 g/dL (3.2-5.0); Alkaline Phosphatase 123 U/L (45-117); Anion Gap 11 (5-15); BUN 4 mg/dL (7-18); BUN/Creat Ratio 7.3 RATIO (10-20); Calcium,Total 8.5 mg/dL (8.5-10.1); Chloride 106 mmol/L (98-107); Creatinine, Serum 0.55 mg/dL (0.70-1.30); EST Glomerular Filtration Rate 161 mL/min (>60); Est Glom Filt Rate - Afr Amer 194 mL/min (>60); Estimated Creatinine Clearance 132.11 ml/min; Globulin 4.1 g/dL (2.2-4.2); Glucose 76 mg/dL (74-106); Lipase 147 U/L (73-393); Potassium 3.7 mmol/L (3.5-5.1); Protein, Total 7.4 g/dL (6.4-8.2); Sodium Level 137 mmol/L (136-145)
[2018-03-21 21:24] LABS: Lactic Acid 3.5 mmol/L (0.4-2.0)
--- NOTE | 2018-03-21 21:25 | ED.RN ---
LAB CALLED TO REPORT TROPONIN 1.19, ETOH 308, AND LACTIC ACID 3.5.
[2018-03-21 22:00] VITALS: BP 124/75; PULSE 82; RESP 21; O2SAT 97
--- NOTE | 2018-03-21 22:09 | CT_ITS ---
STUDY: CTA CHEST REASON FOR EXAM: Male, 62 years old. Chest pain RADIATION DOSAGE (If Supplied By Facility): CTDIvol = ( 5.4 ) mGy, DLP = ( 263.06 ) mGycm TECHNIQUE: The examination was performed with the intravenous administration of 100 ml of Isovue 370 contrast material. Post-processing of the angiographic images was performed, with multiplanar reformation and 3D reconstruction. Individualized dose optimization techniques were used for this CT. COMPARISON: Chest x-ray same day FINDINGS: Median sternotomy wires. Normal enhancement of the main pulmonary artery and right and left pulmonary arteries. Normal enhancement of the bilateral peripheral pulmonary arteries. There is no demonstrated pulmonary embolism. Normal thoracic aorta and visualized great vessels. There is no demonstrated aortic dissection. Normal heart and pericardium. Normal mediastinum. Normal hilar regions. Normal visualized trachea and bronchi. Diffuse emphysema. Normal pleura. Normal chest wall structures. Normal osseous structures. Normal visualized upper abdomen. CT/CTA Chest W/WO Contrast IMPRESSION: Normal CTA chest examination, without a demonstrated pulmonary embolism or arterial dissection. Electronically Signed: Kenn Nelson MD at 23:52 EST Tel , Service support ,
--- NOTE | 2018-03-21 22:12 | EKG12_ITS ---
Test Reason : REPEAT Blood Pressure : / mmHG Vent. Rate : 081 BPM Atrial Rate : 081 BPM P-R Int : 164 ms QRS Dur : 084 ms QT Int : 398 ms P-R-T Axes : 072 064 074 degrees QTc Int : 462 ms Normal sinus rhythm Normal ECG Confirmed by VICTORINA HOLT, LEONILA ([id number]), health editor MICHAEL MURRAY ([id number]) on 03/24/2018 2:19:24 PM Referred By: MARINA Confirmed By:LEONILA PRAJAPATI MD
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
--- NOTE | 2018-03-21 23:43 | ED.RN ---
DR GRAY NOTIFIED OF TROP RESULTS
[2018-03-22] VITALS (31 sets, daily range): BP systolic 99–158; BP diastolic 49–85; PULSE 73–101; RESP 13–20; TEMP 36.2–37.4; O2SAT 95–100; BMI 18.4; BMI 19.3
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
[2018-03-22] MEDS: Aspirin 325 MG Tablet PO (00:22)
[2018-03-22] MEDS: Enoxaparin 60 MG/0.6 ML Syringe SC (00:22)
[2018-03-22 00:51] LABS: Reflex Lactate? Y
--- NOTE | 2018-03-22 01:55 | EKG12_ITS ---
Test Reason : CP ADMIT Blood Pressure : / mmHG Vent. Rate : 085 BPM Atrial Rate : 085 BPM P-R Int : 160 ms QRS Dur : 084 ms QT Int : 396 ms P-R-T Axes : 075 053 062 degrees QTc Int : 471 ms Normal sinus rhythm Possible Left atrial enlargement Borderline ECG When compared with ECG of 16-AUG-2017 11:41, QT has lengthened Confirmed by VICTORINA HOLT, LEONILA ([id number]), industrial editor MICHAEL MURRAY ([id number]) on 03/24/2018 2:01:46 PM Referred By: DR BUSH Confirmed By:LEONILA PRAJAPATI MD
[2018-03-22] MEDS: Atorvastatin Calcium 80 MG Tablet PO ×2 (02:36→21:45)
[2018-03-22 02:39] LABS: Lactic Acid 2.1 mmol/L (0.4-2.0)
[2018-03-22] MEDS: 0.9% Normal Saline 1,000 ML 100 ML IV (02:39)
[2018-03-22] MEDS: Acetaminophen 325 MG Tablet 650 MG PO (02:49)
[2018-03-22 03:20] LABS: Prothrombin Time (Protime)PT. 13.6 SECONDS (11.7-14.9)
[2018-03-22 03:52] LABS: Anion Gap 11 (5-15); BUN 4 mg/dL (7-18); BUN/Creat Ratio 9.4 RATIO (10-20); Calcium,Total 8.4 mg/dL (8.5-10.1); Chloride 111 mmol/L (98-107); Cholesterol 189 mg/dL (200); Creatinine, Serum 0.43 mg/dL (0.70-1.30); EST Glomerular Filtration Rate 215 mL/min (>60); Est Glom Filt Rate - Afr Amer 260 mL/min (>60); Estimated Creatinine Clearance 155.14 ml/min; Glucose 61 mg/dL (74-106); High Density Lipoprotein 83 mg/dL; Potassium 3.8 mmol/L (3.5-5.1); Sodium Level 144 mmol/L (136-145); Triglycerides 57 mg/dL; Very Low Density Lipoprotein 11 mg/dL (5-40)
[2018-03-22] MEDS: 0.45% Normal Saline 1,000 ML 100 ML IV ×2 (04:12→15:28)
[2018-03-22 06:10] LABS: Partial Thromboplast Time 34.8 Seconds (24.1-36.2)
[2018-03-22 06:11] LABS: Absolute Lymphocyte Count 2.02 X10^3/ul (0.83-4.51); Absolute Neutrophil Count 2.5 X10^3/uL (2.0-7.7); Basophil# 0.09 X10^3/uL; Basophil% 1.6 % (0-1); Eosinophil# 0.21 X10^3/uL; Eosinophils% 3.8 % (0-5); Hematocrit 34.4 % (40-54); Hemoglobin 11.6 g/dl (13.0-16.5); Lymphocyte # 2.02 X10^3/ul (4.0); Mean Corp Hgb Conc 33.7 g/gl (32-36); Mean Corpuscular Hgb 32.6 pg (27.0-32.0); Mean Corpuscular Volume 96.6 fL (80-94); Mean Platelet Vol. 9.1 fl (6.2-12.0); Monocyte# 0.66 X10^3/uL; Monocyte% 12.1 % (0-10); Neutrophil # 2.47 X10^3/uL (2.7-7.7); Neutrophil % 45.3 % (47-70); Platelet Count 292 K/mm3 (150-450); RBC Distribution Width SD 53.3 fl (35.1-43.9); Red Blood Count 3.56 M/mm3 (4.6-6.2); White Blood Count 5.5 K/mm3 (4.4-11.0)
[2018-03-22 06:25] LABS: POSITIVE COUNT NO; POSITIVE DIFFERENTIAL NO; POSITIVE MORPHOLOGY NO
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
[2018-03-22] MEDS: Metoprolol Tartrate 25 MG Tablet PO ×2 (08:44→21:45)
[2018-03-22] MEDS: 0.9% Normal Saline 1,000 ML 15 ML IV (08:44)
[2018-03-22] MEDS: Aspirin E.C. 81 MG Tablet PO (08:44)
[2018-03-22] MEDS: Clopidogrel Bisulfate 300 MG Tablet PO (08:44)
[2018-03-22] MEDS: Isosorbide Mononitrate 30 MG Tablet PO (08:44)
[2018-03-22] MEDS: Albuterol 2.5 MG/3 ML VIAL.NEB. INHALATION ×2 (11:07→20:09)
--- NOTE | 2018-03-22 13:40 | NURSING ---
report given to lina ann
--- NOTE | 2018-03-22 13:47 | CL.D_ITS ---
Patient Name: GRACY PONCE Study Date: 03/22/2018 Performing: Sreekanth Liu MD Ht: 71.65 inches 182 cm : 1955 Wt: 145.51 lbs 66 kg Age: 62 Gender: male BSA: 1.85 PROCEDURE(S) PERFORMED PC17-SXA/COR/LV/CABG CLINICAL PROFILE AND INDICATIONS Patient presents with NSTEMI for urgent cardiac cath Indications: ACS <= 24 hrs, Stable Known CAD, Cardiac Arrythmia Heart Failure: None Stress/Imaging Stress/Image Study Performed: No Angina Classification Anginal Classification w/in 2 Weeks: CCS IV CAD Presentations: Symptom unlikely to be ischemic. Non-STEMI. Symptom onset Date/Time: 8 Time Not Available Comorbidities/Risk Factors: Current/Recent Smoker (< 1year) Hypertension Dyslipidemia Prior CABG Peripheral Arterial Disease CONCLUSIONS Severe 3 V CAD with widely patent grafts and normal LV function. RECOMMENDATIONS Medical management with ASA/PLAVIX due to CAD/CABG and PVD. 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 If pt has evidence of inferior or lateral ischemia will consider PCI of SVG to OM and/or PDA. Manual sheath removal. D/w Dr Ram Consult Dr Castillo or Dr Colbert for PVD. DESCRIPTION OF PROCEDURE The patient arrived to the procedure lab. The risks and benefits of the procedure as well as a full d escription of our services here and current unavailability of surgical backup were fully explained to the patient and/or their significant other prior to the catheterization. The Timeout was completed, verifying the correct patient and procedure. The patient's procedural site was prepped and draped in the usual fashion. Local anesthetic was given subcutaneously to right groin region with Lidocaine 2%. Using a modified Seldinger technique, arterial access was obtained via the right femoral artery, a 4 Fr sheath was inserted Left Coronary Artery selective angiography was performed in multiple views us ing a 4 Fr. JL5 catheter. Right Coronary Artery selective angiography was then performed in multiple views using a 4 Fr. 3DRC catheter. Saphenous Vein graft to the DIAG 1 selective angiography was perfo rmed in multiple views using a 4 Fr. 3DRC catheter. Saphenous Vein graft to the RPDA selective angiography was performed in multiple views using a 4 Fr. 3DRC catheter. Saphenous Vein gra ft to the OM 1 selective angiography was performed in multiple views using a 4 Fr. 3DRC catheter. Lef t internal mammary artery graft to the LAD selective angiography was performed in multiple views usin g a 4 Fr. 3DRC catheter. Saphenous Vein graft to the RPDA selective angiography was performed in mult iple views using a 4 Fr. AR MOD 2 catheter. Saphenous Vein graft to the OM 1 selective angiography wa s performed in multiple views using a 4 Fr. AR MOD 2 catheter. Left Ventriculography was performed in BOOTHE projection using a 4 Fr. Pigtail catheter. LV to AO pullback pressures were then recorded.The ar terial sheath was pulled and manual compression applied until hemostasis is achieved. CORONARY ANGIOGRAPHY DOMINANCE: Right Dominant LEFT HEART ASSESSMENT Left Ventricular Ejection Fraction: by LV Gram 65-70 % Normal LV wall motion Normal Left Ventricular systolic function LEFT MAIN: Moderate calcification, Mild luminal irregularities less than 30% LEFT ANTERIOR DECENDING ARTERY: is occluded CIRCUMFLEX ARTERY: PROX CIRC: Moderate luminal irregularities up to 50% RIGHT CORONARY ARTERY: MID RCA: is occluded GRAFTS: HOFFMAN graft to the LAD is patent Saphenous Vein graft to the 1st Diagonal is patent Saphenous Vein graft to the 1st OM has a distal lesion of 50 % Saphenous Vein graft to the RPDA has a distal lesion of 50 % COMPLICATIONS No Complications PROCEDURE MEDICATIONS Oxygen: 2 L/min via nasal cannula SUMMARY OF HEMODYNAMIC DATA Time AIR REST ECG 13:00:04 AO 134/67 (95) SA 13:14:12 LV 154/-17, 12 13:27:57 LV 138/-12, 12 13:27:59 LVp 158/62, 72 13:28:09 AOp 158/68 (106) 13:28:14 Signed By Sreekanth Liu MD On 03/22/2018 13:46:30 Sreekanth Liu MD
--- NOTE | 2018-03-22 14:29 | CASEMGMT ---
Assessment- February Living situation- Alone in a 2 story home. Bathroom and bedroom on 2nd floor PCP: Dr Kenn Parra Specialists: N/A Pharmacy: [facility] DME: None ADL's/IADL's: Independent with everything except he does not drive Past SNF/rehab: None Past HH: None LW: No POA: No SW spoke with patient to complete assessment. SW asked him if snf for rehab is recommended would he be willing to do this and he said, No. SW asked if home health is recommended would he be ok with this and he said he isn't sure about that either. SW asked him about his alcohol consumption. He said he doesn't want to quit and if he did he would just quit. He said that is how he quit street drugs. He said you have to want to quit to quit. SW told him we will just follow along for his d/c. Plan: At this time patient is insistent he is going home at d/c. Eladia ANN MSW
[2018-03-22] MEDS: Thiamine Hydrochloride 100 MG Tablet PO (15:27)
[2018-03-22] MEDS: Folic Acid 1 MG Tablet PO (15:27)
[2018-03-22] MEDS: Multivitamins,Ther W-Minerals Tablet 1 TABLET PO (15:27)
[2018-03-22] MEDS: Gabapentin 300 MG Capsule PO (15:27)
[2018-03-22] MEDS: Cilostazol 50 MG Tablet 100 MG PO (15:30)
[2018-03-22] MEDS: Pantoprazole Sodium 20 MG Tablet PO (15:30)
[2018-03-22] MEDS: NIFEdipine 90 MG Tablet PO (15:30)
[2018-03-22] MEDS: FLUoxetine 20 MG Capsule PO (15:31)
--- NOTE | 2018-03-22 15:35 | NURSING ---
This RN noted hematoma at 1515 post heart cath check. Second RN in to verify and applied pressure. Notified labor relations representative and they stated they could come up and look at it, but wouldn't have time to hold pressure. Dr. Liu notified in which he stated to continue to hold pressure, have labor relations representative come eval, & labor relations representative can stay late if they needed to. Candace from labor relations representative in room @ 1545 to assess site, state site looked good to her. Informed Candace that hematoma site was golf ball size and firm, reabsorbed after pressure applied. Candace advised to contact ICU if fem stop needed.
[2018-03-22] MEDS: Budesonide Respules 0.5 MG/2 ML AMPUL.NEB. INHALATION (20:09)
[2018-03-23] VITALS (7 sets, daily range): BP systolic 107–136; BP diastolic 64–72; PULSE 68–88; RESP 16–20; TEMP 37; O2SAT 97–99
[2018-03-23] MEDS: Albuterol 2.5 MG/3 ML VIAL.NEB. INHALATION ×2 (07:43→13:12)
[2018-03-23] MEDS: Budesonide Respules 0.5 MG/2 ML AMPUL.NEB. INHALATION (07:43)
[2018-03-23] MEDS: Multivitamins,Ther W-Minerals Tablet 1 TABLET PO (08:22)
[2018-03-23] MEDS: Aspirin E.C. 81 MG Tablet PO (08:22)
[2018-03-23] MEDS: Folic Acid 1 MG Tablet PO (08:22)
[2018-03-23] MEDS: Thiamine Hydrochloride 100 MG Tablet PO (08:23)
[2018-03-23] MEDS: Isosorbide Mononitrate 30 MG Tablet PO (08:23)
[2018-03-23] MEDS: Gabapentin 300 MG Capsule PO (08:23)
[2018-03-23] MEDS: Clopidogrel Bisulfate 75 MG Tablet PO (08:24)
[2018-03-23] MEDS: FLUoxetine 20 MG Capsule PO (08:24)
[2018-03-23] MEDS: NIFEdipine 90 MG Tablet PO (08:24)
[2018-03-23] MEDS: Pantoprazole Sodium 20 MG Tablet PO (08:24)
[2018-03-23] MEDS: Cilostazol 50 MG Tablet 100 MG PO (08:24)
[2018-03-23] MEDS: Metoprolol Tartrate 25 MG Tablet PO (08:25)
--- NOTE | 2018-03-23 11:26 | PCM.PN.CARD ---
Subjectve: Patient feeling much better today, no 24-hour events. Telemetry negative. No chest pain. Right groin is clean/dry/intact without evidence of hematoma or bruit. Objective: Vital Signs Temp Pulse Resp BP Pulse Ox 98.6 F 82 18 107/64 99 03/23/18 09:40 03/23/18 10:57 03/23/18 09:40 03/23/18 09:40 03/23/18 09:40 Oxygen Flow Rate (L/min) 2 Oxygen Delivery Method Room Air Weight: 145 lb 15.136 oz Body Mass Index (BMI) 18.4 Intake and Output for Last 24 Hours 03/21/18 03/22/18 03/23/18 23:59 23:59 23:59 Intake Total 2629 / 2629 141 / 141 Output Total 1150 / 1150 200 / 200 Balance 1479 / 1479 -59 / -59 General: Awake, Alert, Oriented x 3 HEENT: PERRL, EOMI, Sclera Non Icteric Neck: Supple, Good ROM, No Lymph Node Enlargement Lungs: Clear to auscultation Cardiovascular: Regular Rhythm, Normal S1, Normal S2, No Murmurs, No Rubs, No Gallops Vascular: No Carotid Bruits, Normal Femoral Pulses, Normal Radial Pulses, Normal Dorsalis Pedal Pulse, Normal Posterior Tibial Pulses Abdomen: Bowel Sounds Present, Soft, Non Tender, No HSM, No Organomegaly Extremities: No Cyanosis, No Clubbing, No edema Neurological: No Focal Motor or Sensory Deficit Rhythm: EKG: ECHO: Stress Test: Cardiac Cath: PCI: CT Surgery: Holter monitor: EPS: PPM: CXR: Chest CT Scan: Medical Necessity - Tobacco Use Smoking Status: Current every day smoker Tobacco Use: Cigarettes Assessment/Plan 1. Coronary artery disease: Patient's presenting symptoms appear to be noncardiac in origin, although I am unsure exactly what caused the patient to experience his symptoms. The patient has a known history of substance abuse including alcohol, THC and tobacco. Relook coronary angiogram yesterday demonstrated disease in his distal saphenous vein graft to his PDA as well as the distal portion of the saphenous vein graft to the obtuse marginal. His left main and left circumflex stenosis appear to be stable since June 2017, and his LV function was normal. It is doubtful the patient's coronary disease contributed appreciably to his presenting symptoms, and his diffuse coronary disease may have contributed to his abnormal troponins. Have recommended the patient undergo a treadmill echocardiogram in 2 weeks time to evaluate his inferior and lateral young with respect to his saphenous vein graft stenosis. I strongly recommended the patient continue baby aspirin, Plavix, and avoid THC, smoking and alcohol. 2. Peripheral vascular disease: We will refer the patient Dr. [place] Castillo for evaluation of his peripheral vascular disease. He apparently is already had ABIs. 3. Hyperlipidemia: Continue statin based medications. 4. Patient may be discharged home and follow-up with Dr. Liu going forward. 5. Thank you very much for the opportunity to participate in the cardiac care of your patient. Code Visit Inpatient E&M: 69306 Subs Hosp L2
--- NOTE | 2018-03-23 11:54 | DCINST_ITS ---
- Discharge Diagnoses Current Active Problems: Current Active and Chronic Problems NSTEMI (non-ST elevated myocardial infarction) (Acute) S/P CABG (coronary artery bypass graft) (Chronic) Syncope (Chronic) Illicit drug use (Acute) You will use the following diet at home:: Cardiac Your food should be the consistency of: Regular Your liquids should be the consistency of: Regular/Thin Discharge Activity: No Restrictions Call your doctor if your incision/area has: Sudden Increased Bleeding, Increased Pain/ Swelling Call your doctor if you observe: Fever of 101 or Higher, Shortness of breath, Dizziness, Fainting spells, Chest pain, Increased palpitations (irregular heartbeat) Allergies/Adverse Reactions: Allergies No Known Allergies Allergy (Verified 03/21/18 20:02) Medications to take at Discharge Albuterol Inhaler [Ventolin Hfa (SP)] 2 puff INHALATION Q4H PRN PRN 07/12/17 Fluoxetine [Prozac] 20 mg PO DAILY 07/12/17 Fluticasone/Vilanterol [Breo Ellipta 200-25 Mcg INH] 1 each IH DAILY 07/12/17 Gabapentin [Neurontin] 300 mg PO TIDCM 07/12/17 NIFEdipine [Procardia XL] 90 mg PO DAILY 07/12/17 Nitroglycerin [Nitrostat] 0.4 mg SUBLINGUAL Q5M PRN 07/12/17 Omeprazole [Prilosec] 20 mg PO DAILY 07/12/17 aspirin 81 mg tablet,delayed release 81 mg PO DAILY #30 tab 08/13/17 Atorvastatin Calcium 80 mg PO DAILY 03/21/18 Cilostazol 100 mg PO DAILY 03/21/18 Isosorbide Mononitrate [Isosorbide Mononitrate ER] 30 mg PO DAILY 03/21/18 Clopidogrel Bisulfate [Plavix] 75 mg PO DAILY #30 tablet 03/23/18 Metoprolol Tartrate [Lopressor (beta sascha)] 25 mg PO BID #30 tablet 03/23/18 The following prescriptions were given: Clopidogrel Bisulfate [Plavix] 75 mg PO DAILY #30 tablet Metoprolol Tartrate [Lopressor (beta sascha)] 25 mg PO BID #30 tablet Primary Care Physician: Kenn Parra MD [Primary Care Provider] - Please follow up with your Primary Care Physician in: in 3-5 days Test Results: Test results from this visit will be discussed in further detail at your follow- up appointment, if applicable. Please Follow Up With: Sreekanth Liu MD
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
--- NOTE | 2018-03-24 17:14 | CASEMGMT ---
MEAGAN ESTRADA Discharge Follow-up Phone Call: MARCELLE: Bebeto Strata: 3 Call Date: 03/24/18 Discharge Date: 03/23/18 Time of Call: 1710 Duration: 4 minutes ? Admitting Diagnosis: NSTEMI This MEAGAN ESTRADA contacted pt via telephone for discharge follow-up. Pt states he has been doing well since discharge. Pt's speech was very slurred and was difficult to understand. Pt states he was able to obtain his medications, has friends and his daughter checking in on him. Pt has not yet made his follow-up appointments. Encouarged pt to follow up with Dr. Liu and Dr. Parra. Pt states he has been checking his groin access site from the cardiac cath and it has remained soft without bleeding. Pt denied any questions or concerns. Sussy Turk RN
--- OUTSIDE RECORDS SUMMARY | 2018-05-17 10:12 | XMS RPT_ITS ---
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 By: #### L300.3900 #### [facility] [address] [place], [place], [address] BASIC METABOLIC Collected: 03/22/2018 Status: F Source: [place] PROFILE (BMP) 2:58 AM [facility] REPOSITORY TYPE CODE TESTS RESULT OUT OF RANGE REFERENCE UNITS LAB L501.0100 74-106 mg/dL Low GLU 61 Result Comment: Please note revised GLUCOSE reference range effective 2017. LAB L501.1000 7-18 mg/dL Low BUN 4 LAB L501.1100 0.70-1.30 mg/dL Low CREAT,SERUM 0.43 Result Comment: The validity of the calculated GFR AND GFRAA in patients over 70 years has not been determined. Clinical correlation is essential. LAB L501.1110 >60 mL/min Normal EST GFR 215 Result Comment: Non- GFR Calc LAB L501.1115 >60 mL/min Normal EST GFR - AA 260 Result Comment: GFR Calc LAB L501.1255 ml/min Normal Estimated CRCL 155.14 LAB L501.1300 10-20 RATIO Low BUN/CRE 9.4 LAB L501.2200 8.5-10 mg/dL Low .1 CA 8.4 LAB L501.5300 136-14 mmol/L 5 NA Normal 144 LAB L501.5600 3.5-5. mmol/L 1 K Normal 3.8 LAB L501.5900 98-107 mmol/L High CL 111 LAB L501.6100 21.0-3 mmol/L 2.0 CO2 Normal 22.0 LAB L501.6200 5-15 GAP Normal 11 Performed By: #### L500.2500, L500.4100 #### [facility] [address] [place], [address] LIPID PROFILE Collected: 03/22/2018 Status: F Source: [place] 2:58 AM [facility] REPOSITORY TYPE CODE TESTS RESULT OUT OF RANGE REFERENCE UNITS LAB L501.4900 200 mg/dL Normal CHOL 189 Result Comment: <200 mg/dL Desirable 200-240 mg/dL Borderline >240 mg/dL High Risk LAB L501.5000 mg/dL Normal TRIG 57 Result Comment: The drugs N-Acetylcysteine and Metamizole may falsely depress this assay. Serum Triglycerides Reference Interval Normal <150 mg/dL Borderline high 150 - 199 mg/dL High 200 - 499 mg/dL Very High > or = 500 mg/dL LAB L501.6400 mg/dL Normal HDL 83 Result Comment: The drugs N-Acetylcysteine and Metamizole may falsely depress this assay. Reference Range HDL <40 mg/dL Low HDL Cholesterol HDL >or= 60 mg/dL High HDL Cholesterol LAB L501.6500 0-130 mg/dL Normal LDL 95 LAB L501.6600 5-40 mg/dL Normal VLDL 11 Performed By: #### L500.2500, L500.4100 #### [facility] [address] [place], [address] TROPONIN-I Collected: 03/22/2018 Status: F Source: [place] 2:58 AM [facility] REPOSITORY Order Comment: 'TROP' Serial specimen #1, #2 or #3: 3 TYPE CODE TESTS RESULT OUT OF RANGE REFERENCE UNITS LAB L501.4010 <0.045 ng/mL High alert 1.210 TROPONIN-I Result Comment: Critical Result(s) Called at: 04:19:13 03/22/2018 by: FELIPE Alexis TROPONIN-I EXPECTED VALUES <0.045 Negative 0.045 - 0.590 Consistent with Cardiac Damage > OR = 0.600 Critical Value Not every elevated troponin is indicative of [place]. These values should be used with clinical judgement in examining the patient's clinical picture for diagnosis. To establish a diagnosis of [place] versus myocardial injury, there must be a demonstrated rise and/or fall in the troponin values, in addition to ischemic symptoms, EKG changes, new regional wall motion abnormality, and/or angiographical evidence. PLEASE NOTE: REFERENCE RANGES EDITED 17 Performed By: #### L501.4010 #### [facility] [address] [place], [address] LACTIC ACID Collected: 03/22/2018 Status: F Source: [place] 1:56 AM [facility] REPOSITORY TYPE CODE TESTS RESULT OUT OF REFERENCE UNITS RANGE LAB L503.6005 0.4-2.0 mmol/L High LACTIC ACID 2.1 Result Comment: Critical Result(s) Called at: 02:39:19 03/22/2018 by: EMMA TOTH RN IN PCU Performed By: #### L503.6005 #### [facility] [address] [place], [address] TROPONIN-I Collected: 03/21/2018 Status: F Source: [place] 11:00 PM [facility] REPOSITORY Order Comment: 'TROP' Serial specimen #1, #2 or #3: 2 Has pt arrived? Y TYPE CODE TESTS RESULT OUT OF RANGE REFERENCE UNITS LAB L501.4010 <0.045 ng/mL High alert 1.200 TROPONIN-I Result Comment: Critical Result(s) Called at: 23:42:01 03/21/2018 by: FELIPE AYOUB to Eladia Bassett TROPONIN-I EXPECTED VALUES <0.045 Negative 0.045 - 0.590 Consistent with Cardiac Damage > OR = 0.600 Critical Value Not every elevated troponin is indicative of [place]. These values should be used with clinical judgement in examining the patient's clinical picture for diagnosis. To establish a diagnosis of [place] versus myocardial injury, there must be a demonstrated rise and/or fall in the troponin values, in addition to ischemic symptoms, EKG changes, new regional wall motion abnormality, and/or angiographical evidence. PLEASE NOTE: REFERENCE RANGES EDITED 17 Performed By: #### L501.4010 #### [facility] [address] [facility] [place], [address] CTA CHEST W/WO Observed: 03/21/2018 Status: F Source: [place] CONTRAST 10:10 PM [facility] REPOSITORY [facility] [address] [place] [address] CTA Chest W/WO Contrast MR#: [id number] Acct: [id number] Name: GRACY PONCE Jarod Rep #: [id number] : 1955 M 62 From: Kenn Nelson MD PCP: Kenn Hunter MD Status: REG ER Study: CTA Chest W/WO Contrast Date of Exam: 03/21/18 Exam# [id number] Ordering Dr: Sreekanth Collins DO STUDY: CTA CHEST REASON FOR EXAM: Male, 62 years old. Chest pain RADIATION DOSAGE (If Supplied By Facility): CTDIvol = ( 5.4 ) mGy, DLP = ( 263.06 ) mGycm TECHNIQUE: The examination was performed with the intravenous administration of 100 ml of Isovue 370 contrast material. Post-processing of the angiographic images was performed, with multiplanar reformation and 3D reconstruction. Individualized dose optimization techniques were used for this CT. COMPARISON: Chest x-ray same day FINDINGS: Median sternotomy wires. Normal enhancement of the main pulmonary artery and right and left pulmonary arteries. Normal enhancement of the bilateral peripheral pulmonary arteries. There is no demonstrated pulmonary embolism. Normal thoracic aorta and visualized great vessels. There is no demonstrated aortic dissection. Normal heart and pericardium. Normal mediastinum. Normal hilar regions. Normal visualized trachea and bronchi. Diffuse emphysema. Normal pleura. Normal chest wall structures. Normal osseous structures. Normal visualized upper abdomen. CT/CTA Chest W/WO Contrast IMPRESSION: Normal CTA chest examination, without a demonstrated pulmonary embolism or arterial dissection. Electronically Signed: Kenn Nelson MD at 23:52 EST Tel , Service support , CC: Sreekanth Collins DO; Kenn Hunter MD [employer] Bi Developer: Signed URINE DRUG SCREEN Collected: 03/21/2018 Status: F Source: [place] (VISTA) 8:50 PM [facility] REPOSITORY Order Comment: Has pt arrived? Y TYPE CODE TESTS RESULT OUT OF RANGE REFERENCE UNITS LAB L505.0075 TO BE Normal CONFIRMED Result Comment: CONFIRMATORY TESTING FOR ALL POSITIVE URINE DRUG SCREEN RESULTS WILL ONLY BE SENT OUT UPON PHYSICIAN ORDER. VISTA Urine Drug Screen methods provide only preliminary analytical test results. A more specific alternate chemical method must be used in order to obtain a confirmed analytical result. Gas chromatography/mass spectrometery (GC/MS) is the preferred confirmatory method. Clinical consideration and professional judgement should be applied to any drug of abuse test result, particularly when preliminary positive results are used. URINE TCA TESTING MUST BE ORDERED SEPARATELY. USE TEST MNEMONIC: [facility] LAB L505.5005 VISTA UDS PH 6 Normal LAB L505.5015 <1000 ng/mL AMPHETAMINES Normal NEGATIVE LAB L505.5025 < 200 ng/mL BARBITIURATES Normal NEGATIVE LAB L505.5035 < 200 ng/mL BENZODIAZIPINE Normal NEGATIVE LAB L505.5045 < 300 ng/mL COCAINE Normal NEGATIVE LAB L505.5055 < 500 ng/mL ECSTACY Normal NEGATIVE LAB L505.5065 < 300 ng/mL METHADONE Normal NEGATIVE LAB L505.5075 < 300 ng/mL OPIATES Normal NEGATIVE LAB L505.5085 < 25 ng/mL PCP Normal NEGATIVE LAB L505.5095 < 50 ng/mL THC Normal NEGATIVE Performed By: #### L505.5000 #### [facility] [address] [facility] [place], [place], [id number] URINALYSIS, COMPLETE Collected: 03/21/2018 Status: F Source: [place] 8:50 PM [facility] REPOSITORY Order Comment: How was Urine Obtained? CLEAN CATCH TYPE CODE TESTS RESULT OUT OF RANGE REFERENCE UNITS LAB L400.3000 Yellow COLOR Normal Straw LAB L400.3050 Clear Normal CLARITY Clear LAB L400.3200 Normal mg/dl Normal GLUCOSE, UR Normal LAB L400.3300 Negative mg/dL Normal BILIRUBIN URINE Negative LAB L400.3400 Negative mg/dl Normal KETONE UR Negative LAB L400.3465 1.002-1.030 Normal SP.GR. DIPSTX 1.005 LAB L400.3550 5.0 - 8.0 pH UR Normal 6.5 LAB L400.3600 Negative mg/dl PROT Normal DIPSTX Negative LAB L400.3700 Normal mg/dl Normal UROBILI Normal LAB L400.3750 Negative Normal NITRITE UR Negative LAB L400.3780 Negative /ul Normal OCCULT BLOOD-UR Negative LAB L400.3800 Negative /ul LEUK Normal ESTERASE Negative LAB L400.4050 0-5 /hpf WBC 0 Normal SEEN LAB L400.4100 0-5 /hpf 0 Normal RBC-UA SEEN LAB L400.4150 0-5 /hpf SQUAM 0 Normal EPI SEEN LAB L400.4300 None Seen /hpf 0 Normal BACTERIA SEEN LAB L400.4350 <or=2+ /hpf 0 Normal MUCUS, URINE SEEN Performed By: #### L400.0001 #### [facility] [address] [facility] [place], [place], [id number] LACTIC ACID Collected: 03/21/2018 Status: F Source: [place] 8:45 PM [facility] REPOSITORY Order Comment: Yes/No query for Sepsis Lactate Rule Y TYPE CODE TESTS RESULT OUT OF REFERENCE UNITS RANGE LAB L503.6005 0.4-2.0 mmol/L High LACTIC ACID 3.5 Result Comment: Critical Result(s) Called at: 21:24:23 03/21/2018 by: Debi Tomlinsont Performed By: #### L503.6005 #### [facility] [address] [place], [address] BRAIN/HEAD WITHOUT Observed: 03/21/2018 Status: F Source: [place] CONTRAST 8:41 PM [facility] REPOSITORY [facility] [address] [place] [address] Brain/Head without Contrast MR#: [id number] Acct: [id number] Name: GRACY PONCE Jarod Rep #: [id number] : 1955 M 62 From: Muriel Mishra MD PCP: Kenn Hunter MD Status: REG ER Study: Brain/Head without Contrast Date of Exam: 03/21/18 Exam# [id number] Ordering Dr: Sreekanth Collins DO STUDY: CT BRAIN WITHOUT CONTRAST REASON FOR EXAM: Male, 62 years old. Altered loss of consciousness. RADIATION DOSAGE (If Supplied By Facility): CTDIvol = ( 44.99 ) mGy, DLP = ( 779.24 ) mGycm TECHNIQUE: Transaxial CT imaging of the brain was performed without administration of intravenous contrast material. Individualized dose optimization techniques were used for this CT. COMPARISON: September 07, 2017 FINDINGS: Normal soft tissue structures. Normal calvarium. There is mild cerebral atrophy with widening of the extra- axial spaces and ventricular dilatation. There are areas of decreased attenuation within the white matter tracts of the supratentorial brain, consistent with microvascular disease changes. Normal basal ganglia and thalami. Normal brainstem. There is mild cerebellar atrophy. There is no intracranial hemorrhage. There are no findings of an acute ischemic infarction. Normal visualized paranasal sinuses. CT/Brain/Head without Contrast IMPRESSION: Chronic involutional changes of the brain. Small vessel ischemia. Electronically Signed: Muriel Mishra MD at 21:27 EST Tel , Service support , CC: Sreekanth Collins DO; Kenn Hunter MD [employer] Bi Developer: Signed CHEST 1 VIEW Observed: 03/21/2018 Status: F Source: [place] (PORTABLE) 8:41 PM [facility] REPOSITORY [facility] [address] [place] [address] Chest 1 View (Portable) MR#: [id number] Acct: [id number] Name: GRACY PONCE Rep #: [id number] : 1955 M 62 From: Muriel Mishra MD PCP: Kenn Hunter MD Status: REG ER Study: Chest 1 View (Portable) Date of Exam: 03/21/18 Exam# [id number] Ordering Dr: Sreekanth Collins DO STUDY: X-RAY CHEST REASON FOR EXAM: Male, 62 years old. Altered loss of consciousness. TECHNIQUE: 2 frontal images of the chest were obtained. COMPARISON: August 16, 2017 FINDINGS: The lungs are hyperinflated. There is no new focal consolidation. Sternal cerclage wires are present from a prior sternotomy. The cardiomediastinal silhouette is stable. Normal visualized thoracic spine. Normal visualized ribs, clavicles, and shoulders. There is no demonstrated abnormality of the visualized soft tissue structures of the upper abdomen. RAD/Chest 1 View (Portable) IMPRESSION: Stable examination demonstrating no acute cardiopulmonary process. Electronically Signed: Muriel Mishra MD at 21:30 EST Tel , Service support , CC: Sreekanth Collins DO; Kenn Hunter MD [employer] Bi Developer: Signed CBC W/DIFF, AUTOMATED Collected: 03/21/2018 Status: F Source: [place] 8:05 PM [facility] REPOSITORY TYPE CODE TESTS RESULT OUT OF RANGE REFERENCE UNITS LAB L100.1000 4.4-11.0 K/mm3 Normal WBC 8.8 LAB L100.1200 4.6-6.2 M/mm3 Low RBC 4.07 LAB L100.1300 13.0-16.5 g/dl Normal HGB 13.7 LAB L100.1400 40-54 % Low HCT 38.9 LAB L100.1500 80-94 fL High MCV 95.6 LAB L100.1600 27.0-32.0 pg High MCH 33.7 LAB L100.1700 32-36 g/gl Normal MCHC 35.2 LAB L100.1810 11.6-14.6 % High RDW CV 14.9 LAB L100.1820 35.1-43.9 fl High RDW SD 52.2 LAB L100.1900 150-450 K/mm3 Normal PLT 332 LAB L100.2000 6.2-12.0 fl Normal MPV 9.0 LAB L100.2100 47-70 % Low NEUT% 42.8 LAB L100.2200 19-41 % Normal LY% 40.5 LAB L100.2300 0-10 % High MONO% 11.5 LAB L100.2400 0-5 % Normal EO% 3.6 LAB L100.2500 0-1 % High BASO% 1.4 LAB L100.2550 0.0-0.9 % Normal IM GRAN % 0.200 Result Comment: IG% - Immature Granulocytes (promyelocytes, myelocytes and metamyelocytes) > 1% indicates that a LEFT SHIFT is Present. LAB L100.2620 2.0-7.7 X10 3/uL Normal Absolute Neut 3.8 LAB L100.2720 0.83-4.51 X10 3/ul Normal Absolute Lymph 3.56 Performed By: #### L100.0100 #### [facility] [address] [place], [address] COMPREHENSIVE METABOLIC Collected: 03/21/2018 Status: F Source: [place] [facility] 8:05 PM [facility] REPOSITORY TYPE CODE TESTS RESULT OUT OF RANGE REFERENCE UNITS LAB L501.0100 74-106 mg/dL Normal GLU 76 Result Comment: Please note revised GLUCOSE reference range effective 2017. LAB L501.1000 7-18 mg/dL Low BUN 4 LAB L501.1100 0.70-1.30 mg/dL Low CREAT,SERUM 0.55 Result Comment: The validity of the calculated GFR AND GFRAA in patients over 70 years has not been determined. Clinical correlation is essential. LAB L501.1110 >60 mL/min Normal EST GFR 161 Result Comment: Non- GFR Calc LAB L501.1115 >60 mL/min Normal EST GFR - AA 194 Result Comment: GFR Calc LAB L501.1255 ml/min Normal Estimated CRCL 132.11 LAB L501.1300 10-20 RATIO Low BUN/CRE 7.3 LAB L501.1500 6.4-8. g/dL 2 T PROT Normal 7.4 LAB L501.1800 3.2-5. g/dL 0 ALB Normal 3.3 LAB L501.1950 2.2-4. g/dL 2 GLOB Normal 4.1 LAB L501.2000 0.9-2. RATIO Low 4 A/G 0.8 LAB L501.2200 8.5-10 mg/dL .1 CA Normal 8.5 LAB L501.4100 15-37 U/L High AST 47 LAB L501.4305 45-117 U/L High ALK P 123 LAB L501.4405 16-61 U/L ALT Normal 31 LAB L501.4600 0.20-1 mg/dL .00 T BILI Normal 0.20 LAB L501.5300 136-14 mmol/L 5 NA Normal 137 LAB L501.5600 3.5-5. mmol/L 1 K Normal 3.7 LAB L501.5900 98-107 mmol/L CL Normal 106 LAB L501.6100 21.0-3 mmol/L Low 2.0 CO2 20.0 LAB L501.6200 5-15 GAP Normal 11 Performed By: #### L500.4050, L501.2450, L501.4010 #### [facility] [address] [place], [address] LIPASE Collected: 03/21/2018 Status: F Source: [place] 8:05 PM [facility] REPOSITORY TYPE CODE TESTS RESULT OUT OF RANGE REFERENCE UNITS LAB L501.2450 73-393 U/L Normal LIPASE 147 Performed By: #### L500.4050, L501.2450, L501.4010 #### [facility] [address] [place], [address] TROPONIN-I Collected: 03/21/2018 Status: F Source: [place] 8:05 PM [facility] REPOSITORY TYPE CODE TESTS RESULT OUT OF RANGE REFERENCE UNITS LAB L501.4010 <0.045 ng/mL High alert 1.190 TROPONIN-I Result Comment: Critical Result(s) Called at: 21:23:53 03/21/2018 by: Debi Esquivel to Davit TROPONIN-I EXPECTED VALUES <0.045 Negative 0.045 - 0.590 Consistent with Cardiac Damage > OR = 0.600 Critical Value Not every elevated troponin is indicative of [place]. These values should be used with clinical judgement in examining the patient's clinical picture for diagnosis. To establish a diagnosis of [place] versus myocardial injury, there must be a demonstrated rise and/or fall in the troponin values, in addition to ischemic symptoms, EKG changes, new regional wall motion abnormality, and/or angiographical evidence. PLEASE NOTE: REFERENCE RANGES EDITED 17 Performed By: #### L500.4050, L501.2450, L501.4010 #### [facility] [address] [place], [place], [address] ALCOHOL, BLOOD Collected: 03/21/2018 Status: F Source: [place] (MEDICAL)-SERUM 8:05 PM [facility] REPOSITORY TYPE CODE TESTS RESULT OUT OF RANGE REFERENCE UNITS LAB L501.9100 mg/dL High alert SERUM 308.0 ETOH Result Comment: Critical Result(s) Called at: 21:24:10 03/21/2018 by: Debi Esquivel to Davit The serum:whole blood ethanol ratio is approximately 1.14 and varies slightly with hematocrit. Medical Alcohol reference interval and critical value in non-tolerant individuals; 50 - 100 Impairment 100 Intoxication 100 - 250 Severe Poisoning 250 - 400 Deep/possible fatal coma Performed By: #### L501.9100 #### [facility] [address] [place], [address] CREATININE Collected: 03/20/2018 Status: F Source: [place] 9:12 AM [facility] REPOSITORY TYPE CODE TESTS RESULT OUT OF REFERENCE UNITS RANGE LAB CRET 0.73-1.22 mg/dL Low Creatinine 0.44 LAB GFRAA eGFR- >60 Amer. LAB GFRNAA . eGFR-All Other Races >60 Result Comment: eGFR (Estimated GFR) Units of measure: mL/min/1.73 meters squared eGFR is derived from the reexpressed MDRD Study equation using the following parameters: serum creatinine, age, gender and race. The creatinine assay has been calibrated to be traceable to IDMS. An eGFR <60 mL/min/1.73m2 for >3 months is consistent with chronic kidney disease. Refer to KDOQI guidelines for clinical interpretation. In patients with unstable renal function, e.g. those with acute kidney injury, the eGFR may not accurately reflect actual GFR. CNOV Observed: 03/20/2018 Status: COMPLETED Source: [place] 8:00 AM [facility] REPOSITORY Office Visit (VASSWS) GRACY PONCE ([id number]) 1955 M Date Time Provider Department 03/20/18 8:00 AM MAE MALLORY During your visit today, we recorded the following information about you: Pulse Blood pressure 87/minute 116/65 Mae Mallory DO 03/20/2018 8:48 AM Signed VASCULAR SURGERY INITIAL CONSULT SERVICE DATE: 03/20/2018 SERVICE TIME: 7:53 AM PRIMARY CARE PHYSICIAN: Kenn Hunter MD Consult requested for an opinion regarding the evaluation and treatment of the above. My final impression and recommendations will be communicated back to the requesting physician by way of the shared medical record or letter via US mail. CHIEF COMPLAINT/HISTORY OF PRESENT ILLNESS: Chief Complaint: PAD History of Present Illness: Gracy Ponce is a 62 year old male referred for follow- up on PAD. Mr. Ponce reports around 50 yard claudication- states worse if he is walking too fast or on an incline. He denies wounds or ulcerations on his lower extremities. He is a current smoker (reported 0.5 PPD). He reports history of ASHD s/p CABG x4, HTN, HLD, RASHID, Raynaud's, h/o TIA- he is currently on ASA and Lipitor. States unable to walk any amount of distance and his feet go numb. Denies rest pain however does admit to calf cramping at night. States this has gotten progressively worse over past few months. He used to be able to walk to the drive through [employer] however would have to stop every block and rest on other lawns because he couldn't get back up if stopped on a sidewalk. He currently is no longer able to walk to the store. He is on disability secondary to vision loss due to cataract surgery. States in the 70s and 80s there wasn't a drug that he didn't try. PAST MEDICAL/SURGICAL/FAMILY/SOCIAL HISTORY PAST MEDICAL HISTORY Diagnosis Date - CAD (coronary artery disease) 2008 - Hypertension - [place] (myocardial infarction) (HCC) 2009 - Raynaud phenomenon decreased beta sascha and added procardia to help - S/P CABG x 4 2008 - Stented coronary artery 2008 PAST SURGICAL HISTORY Procedure Laterality Date - APPENDECTOMY - CABG (4) VEIN GRAFTS AND ARTERIAL GRAFT(S) 2008 [facility] - CATARACT EXTRACTION HX Bilateral - COLONOSCOP W/ OR W/O BRSH SPEC 02/13/2018 Colonoscopy - EGD W/O OR W/BRUSH/WASH 02/13/2018 EGD - PAST SURGICAL HISTORY OF Right release trigger finger - REMOVAL OF TONSILS; AGE 12 OR OVER FAMILY HISTORY Problem Relation Age of Onset - Cancer Father unkown primary-started in his axilla. - other (murdered) Mother - Colon Cancer Brother - Diabetes Brother - Diabetes Sister - Diabetes Brother - Diabetes Brother SOCIAL HISTORYSocial History Marital status: Single Spouse name: Years of education: Number of children: Social History Main Topics Smoking status: Current Every Day Smoker Packs/day: 0.50 Years: 40.00 Types: Cigarettes Smokeless tobacco: Never Used Alcohol use: Yes Comment: drinks about a couple beer a day Drug use: No MEDICATIONS/ALLERGIES Current Outpatient Prescriptions: NIFEdipine ER (PROCARDIA XL) 90 mg 24 hr tablet Take 1 tablet by mouth once daily. Disp: 90 tablet Rfl: 1 VENTOLIN HFA 90 mcg/actuation inhaler INHALE 2 PUFFS EVERY 4 HOURS NEEDED Disp: 18 g Rfl: 5 gabapentin (NEURONTIN) 300 mg capsule TAKE 1 CAPSULE BY MOUTH THREE TIMES DAILY Disp: 270 capsule Rfl: 1 omeprazole (PRILOSEC) 20 mg capsule TAKE 1 TABLET EVERY DAY Disp: 90 capsule Rfl: 3 BREO ELLIPTA 200-25 mcg/dose inhaler Inhale 1 Inhalation as instructed once daily. DO NOT CLICK OPEN UNTIL READY FOR DOSE Disp: 3 Each Rfl: 3 isosorbide mononitrate ER (IMDUR) 30 mg 24 hr tablet Take 1 tablet by mouth once daily. Disp: 90 tablet Rfl: 3 atorvastatin (LIPITOR) 80 mg tablet Take 0.5 tablets by mouth daily at bedtime. Disp: 90 tablet Rfl: 3 FLUoxetine (PROZAC) 20 mg capsule TAKE 1 CAPSULE EVERY DAY Disp: 90 capsule Rfl: 3 nitroglycerin sublingual (NITROQUICK) 0.4 mg SL tablet Dissolve 1 tablet under the tongue as needed. for chest pain, if no pain relief within 5 minutes contact 911 Disp: 25 tablet Rfl: 1 aspirin, enteric coated (ECOTRIN LOW STRENGTH) 81 mg EC tablet Take 1 tablet by mouth once daily. Disp: Rfl: 0 No current facility-administered medications for this visit. ALLERGIES No Known Allergies REVIEW OF SYSTEMS Constitutional: No weight loss, malaise or fevers. HEENT: Negative for frequent or significant headaches, No changes in hearing or vision, no nose bleeds or other nasal problems Respiratory: Positive for chronic cough and shortness of breath on exertion Cardiovascular: Positive for leg swelling and Vascular: claudication Gatrointestinal: Negative for abdominal discomfort, blood in stools or black stools or change in bowel habits Genitourinary: No history of dysuria, frequency, or incontinence and No difficulty urination, nocturia >1 times per night or hematuria Musculoskeletal: Positive for back pain Endocrine: Negative for cold or heat intolerance, polyuria, polydipsia and goiter Hematology/Lymphatic: Negative for prolonged bleeding, bruising easily or swollen nodes Neurologic: No history or headaches, syncope, paralysis, seizures or tremors Integumentary: Negative for lesions, rash, and itching. PHYSICAL EXAM VITALS: BP 116/65 Pulse 87 General: Alert and oriented, No acute distress Integumentary: Normal color, no rash, no lesions. HEENT: EOM, pupils equal, round and reactive. Cardiovascular: Pulse regular. Lungs: No chest deformities or chest wall tenderness. Abdomen: Soft, non-tender, no rigidity. Extremities: No deformity, no edema or tenderness, no joint swelling or clubbing. No ulcerations, cap refill 4 seconds Neurological: Normal cognition and motor skills. Vascular: palpable femoral pulses, non-palpable distal pulses ASSESSMENT Peripheral Arterial Disease Diagnostic tests reviewed for today's visit: Most recent labs Most recent imaging PVRs 12/2017 Compared to prior study of 08/14/2015, right ankle brachial index was 1.03 and left was 0.99. RIGHT SIDE Resting right ankle brachial index: 0.65 Post exercise right ankle brachial index: 0.31 Right toe brachial index: 0.43 Abnormal ankle brachial index at rest diagnostic of peripheral artery disease. Abnormal toe brachial index at rest is evidence of peripheral artery disease. Right ankle: Moderate disease at rest. Right distal superficial femoral and/or popliteal disease. Note drop in pressure and/or ankle-brachial index after exercise. LEFT SIDE Resting left ankle brachial index: 0.69 Post exercise left ankle brachial index: 0.44 Left toe brachial index: 0.47 Abnormal ankle brachial index at rest diagnostic of peripheral artery disease. Abnormal toe brachial index at rest is evidence of peripheral artery disease. Left ankle: Moderate disease at rest. Left iliofemoral disease. Note drop in pressure and/or ankle-brachial index after exercise. PLAN/RECOMMENDATIONS Discussed arterial disease with patient Discussed importance of smoking cessation Will optimize medically and trial of conservative therapy Recommend walking and exercise and instructed on a walking program that he can perform at home Continue antiplatelet therapy, blood pressure and cholesterol control Will get CTA and follow up with results as patient states symptoms are lifestyle limiting and he had a significant decline in PVRs from 2016 SIGNATURE: Mae Mallory DO PATIENT NAME: Gracy Ponce DATE: March 20, 2018 TIME: 7:53 AM Referring Provider: BISHOP ANDINO [[id number]] Allergies As of Date: 03/20/2018 (No Known Allergies) Date Reviewed: 03/20/2018 Reviewed by: Greg G Boroway RN - Fully Assessed Reason for Visit: New Patient Evaluation [154] Primary Visit Diagnosis:Screening for nephropathy [Z13.89] Other Visit Diagnoses:Diminished pulses in lower extremity [R09.89] Peripheral arterial disease (HCC) [I73.9] Order(s):CREATININE BLD [SQCRET] Order #: [id number] FUTURE CTA ABD/PEL LOWER EXTREM W IVCON [[id number]] Order #: [id number] FUTURE iv contrast (will be provided with radiology test)CTA ABD/PEL LE - No IV access, insert saline lock prior to the sedation, infusion, injection for imaging exam. Discontinue saline lock post exam. If Pt. has a central line or IVAD, may access for administration according to line specific nursing protocol. Once exam is complete flush line and de-access according to line specific nursing protocol in the CT contrast administration guidelines link.Disp: 1 EachRfl: 0 cilostazol (PLETAL) 100 mg tabletTake 1 tablet by mouth twice daily.Disp: 60 tabletRfl: 2 Prescriptions as of 03/20/2018 Sig: NIFEDIPINE ER 90 MG TABLET,EX* Take 1 tablet by mouth once d* VENTOLIN HFA 90 MCG/ACTUATION* INHALE 2 PUFFS EVERY 4 HOURS * GABAPENTIN 300 MG CAPSULE TAKE 1 CAPSULE BY MOUTH THREE* OMEPRAZOLE 20 MG CAPSULE,MINAL* TAKE 1 TABLET EVERY DAY BREO ELLIPTA 200 MCG-25 MCG/D* Inhale 1 Inhalation as instru* ISOSORBIDE MONONITRATE ER 30 * Take 1 tablet by mouth once d* ATORVASTATIN 80 MG TABLET Take 0.5 tablets by mouth evelyn* FLUOXETINE 20 MG CAPSULE TAKE 1 CAPSULE EVERY DAY NITROGLYCERIN 0.4 MG SUBLINGU* Dissolve 1 tablet under the t* ASPIRIN 81 MG TABLET,DELAYED * Take 1 tablet by mouth once d* IV CONTRAST (RADIOLOGY PROCED* CTA ABD/PEL LE - No IV access* CILOSTAZOL 100 MG TABLET Take 1 tablet by mouth twice * Problem List As Of Date 03/20/2018 Noted Resolved CAD (coronary artery disease) [I25.10] INVALID FOR* Hypertension [I10] INVALID FOR* Anxiety [F41.9] INVALID FOR* Pain in joint, upper arm [M25.529] INVALID FOR* Raynaud phenomenon [I73.00] More... Polyneuropathy (HCC) [G62.9] INVALID FOR* Tobacco use [Z72.0] INVALID FOR* ETOH abuse [F10.10] INVALID FOR* Prescriptions ordered this encounter Disp Refills Start End IV CONTRAST (RADIOLOGY PROCEDURE) 1 Ea* 0 03/20/2018 03/21/2018 Class: In Office Sig: CTA ABD/PEL LE - No IV access, insert saline lock prior to the sedation, infusion, injection for imaging exam. Discontinue saline lock post exam. If Pt. has a central line or IVAD, may access for administration according to line specific nursing protocol. Once exam is complete flush line and de-access according to line specific nursing protocol in the CT contrast administration guidelines link. CILOSTAZOL 100 MG TABLET 60 t* 2 03/20/2018 06/18/2018 Route: ORAL Sig: Take 1 tablet by mouth twice daily. Encounter Status:Closed by MAE MALLORY DO on 03/20/18 PROGRESS Observed: 03/20/2018 Status: COMPLETED Source: [place] 7:53 AM [facility] REPOSITORY [facility] ID: [id number] Author: Mae Mallory Service: (none) Author Type: Physician Type: Progress Notes Filed: 03/20/2018 8:48 AM Note Text: VASCULAR SURGERY INITIAL CONSULT SERVICE DATE: 03/20/2018 SERVICE TIME: 7:53 AM PRIMARY CARE PHYSICIAN: Kenn Hunter MD Consult requested for an opinion regarding the evaluation and treatment of the above. My final impression and recommendations will be communicated back to the requesting physician by way of the shared medical record or letter via US mail. CHIEF COMPLAINT/HISTORY OF PRESENT ILLNESS: Chief Complaint: PAD History of Present Illness: Gracy Ponce is a 62 year old male referred for follow- up on PAD. Mr. Ponce reports around 50 yard claudication- states worse if he is walking too fast or on an incline. He denies wounds or ulcerations on his lower extremities. He is a current smoker (reported 0.5 PPD). He reports history of ASHD s/p CABG x4, HTN, HLD, RASHID, Raynaud's, h/o TIA- he is currently on ASA and Lipitor. States unable to walk any amount of distance and his feet go numb. Denies rest pain however does admit to calf cramping at night. States this has gotten progressively worse over past few months. He used to be able to walk to the drive through [employer] however would have to stop every block and rest on other lawns because he couldn't get back up if stopped on a sidewalk. He currently is no longer able to walk to the store. He is on disability secondary to vision loss due to cataract surgery. States in the 70s and 80s there wasn't a drug that he didn't try. PAST MEDICAL/SURGICAL/FAMILY/SOCIAL HISTORY PAST MEDICAL HISTORY Diagnosis Date - CAD (coronary artery disease) 2008 - Hypertension - [place] (myocardial infarction) (HCC) 2008 - Raynaud phenomenon decreased beta sascha and added procardia to help - S/P CABG x 4 2008 - Stented coronary artery 2008 PAST SURGICAL HISTORY Procedure Laterality Date - APPENDECTOMY - CABG (4) VEIN GRAFTS AND ARTERIAL GRAFT(S) 2008 [facility] - CATARACT EXTRACTION HX Bilateral - COLONOSCOP W/ OR W/O BRSH SPEC 02/13/2018 Colonoscopy - EGD W/O OR W/BRUSH/WASH 02/13/2018 EGD - PAST SURGICAL HISTORY OF Right release trigger finger - REMOVAL OF TONSILS; AGE 12 OR OVER FAMILY HISTORY Problem Relation Age of Onset - Cancer Father unkown primary-started in his axilla. - other (murdered) Mother - Colon Cancer Brother - Diabetes Brother - Diabetes Sister - Diabetes Brother - Diabetes Brother SOCIAL HISTORYSocial History Marital status: Single Spouse name: Years of education: Number of children: Social History Main Topics Smoking status: Current Every Day Smoker Packs/day: 0.50 Years: 40.00 Types: Cigarettes Smokeless tobacco: Never Used Alcohol use: Yes Comment: drinks about a couple beer a day Drug use: No MEDICATIONS/ALLERGIES Current Outpatient Prescriptions: NIFEdipine ER (PROCARDIA XL) 90 mg 24 hr tablet Take 1 tablet by mouth once daily. Disp: 90 tablet Rfl: 1 VENTOLIN HFA 90 mcg/actuation inhaler INHALE 2 PUFFS EVERY 4 HOURS NEEDED Disp: 18 g Rfl: 5 gabapentin (NEURONTIN) 300 mg capsule TAKE 1 CAPSULE BY MOUTH THREE TIMES DAILY Disp: 270 capsule Rfl: 1 omeprazole (PRILOSEC) 20 mg capsule TAKE 1 TABLET EVERY DAY Disp: 90 capsule Rfl: 3 BREO ELLIPTA 200-25 mcg/dose inhaler Inhale 1 Inhalation as instructed once daily. DO NOT CLICK OPEN UNTIL READY FOR DOSE Disp: 3 Each Rfl: 3 isosorbide mononitrate ER (IMDUR) 30 mg 24 hr tablet Take 1 tablet by mouth once daily. Disp: 90 tablet Rfl: 3 atorvastatin (LIPITOR) 80 mg tablet Take 0.5 tablets by mouth daily at bedtime. Disp: 90 tablet Rfl: 3 FLUoxetine (PROZAC) 20 mg capsule TAKE 1 CAPSULE EVERY DAY Disp: 90 capsule Rfl: 3 nitroglycerin sublingual (NITROQUICK) 0.4 mg SL tablet Dissolve 1 tablet under the tongue as needed. for chest pain, if no pain relief within 5 minutes contact 911 Disp: 25 tablet Rfl: 1 aspirin, enteric coated (ECOTRIN LOW STRENGTH) 81 mg EC tablet Take 1 tablet by mouth once daily. Disp: Rfl: 0 No current facility-administered medications for this visit. ALLERGIES No Known Allergies REVIEW OF SYSTEMS Constitutional: No weight loss, malaise or fevers. HEENT: Negative for frequent or significant headaches, No changes in hearing or vision, no nose bleeds or other nasal problems Respiratory: Positive for chronic cough and shortness of breath on exertion Cardiovascular: Positive for leg swelling and Vascular: claudication Gatrointestinal: Negative for abdominal discomfort, blood in stools or black stools or change in bowel habits Genitourinary: No history of dysuria, frequency, or incontinence and No difficulty urination, nocturia >1 times per night or hematuria Musculoskeletal: Positive for back pain Endocrine: Negative for cold or heat intolerance, polyuria, polydipsia and goiter Hematology/Lymphatic: Negative for prolonged bleeding, bruising easily or swollen nodes Neurologic: No history or headaches, syncope, paralysis, seizures or tremors Integumentary: Negative for lesions, rash, and itching. PHYSICAL EXAM VITALS: BP 116/65 Pulse 87 General: Alert and oriented, No acute distress Integumentary: Normal color, no rash, no lesions. HEENT: EOM, pupils equal, round and reactive. Cardiovascular: Pulse regular. Lungs: No chest deformities or chest wall tenderness. Abdomen: Soft, non-tender, no rigidity. Extremities: No deformity, no edema or tenderness, no joint swelling or clubbing. No ulcerations, cap refill 4 seconds Neurological: Normal cognition and motor skills. Vascular: palpable femoral pulses, non-palpable distal pulses ASSESSMENT Peripheral Arterial Disease Diagnostic tests reviewed for today's visit: Most recent labs Most recent imaging PVRs 12/2017 Compared to prior study of 08/14/2015, right ankle brachial index was 1.03 and left was 0.99. RIGHT SIDE Resting right ankle brachial index: 0.65 Post exercise right ankle brachial index: 0.31 Right toe brachial index: 0.43 Abnormal ankle brachial index at rest diagnostic of peripheral artery disease. Abnormal toe brachial index at rest is evidence of peripheral artery disease. Right ankle: Moderate disease at rest. Right distal superficial femoral and/or popliteal disease. Note drop in pressure and/or ankle-brachial index after exercise. LEFT SIDE Resting left ankle brachial index: 0.69 Post exercise left ankle brachial index: 0.44 Left toe brachial index: 0.47 Abnormal ankle brachial index at rest diagnostic of peripheral artery disease. Abnormal toe brachial index at rest is evidence of peripheral artery disease. Left ankle: Moderate disease at rest. Left iliofemoral disease. Note drop in pressure and/or ankle-brachial index after exercise. PLAN/RECOMMENDATIONS Discussed arterial disease with patient Discussed importance of smoking cessation Will optimize medically and trial of conservative therapy Recommend walking and exercise and instructed on a walking program that he can perform at home Continue antiplatelet therapy, blood pressure and cholesterol control Will get CTA and follow up with results as patient states symptoms are lifestyle limiting and he had a significant decline in PVRs from 2016 SIGNATURE: Mae Mallory DO PATIENT NAME: Gracy Ponce DATE: March 20, 2018 TIME: 7:53 AM PROGRESS Observed: 02/26/2018 Status: COMPLETED Source: [place] 11:34 AM [facility] REPOSITORY [facility] ID: [id number] Author: Amado Loza Service: (none) Author Type: Physician Type: Progress Notes Filed: 02/26/2018 11:37 AM Note Text: OPERATIVE NOTATION FOR [facility] SURGICAL PROCEDURE. February 13, 2018 Gracy Ponce 1955 [id number] male PROCEDURE: EGD WITH BIOPSY - [id number] and COLONOSCOPY - [id number] SURGEON: Liban Loza M.D. FACS CLASSIFIED COPY CONTROL CLERK: None DEPT: [facility] PROVIDER: [id number] Loza MD POS: [id number] DIAGNOSIS: (K21.9) Gastroesophageal reflux disease, esophagitis presence not specified (primary encounter diagnosis) (Z12.11) Encounter for screening for malignant neoplasm of colon ASA CLASS: 3 - Severe FINDINGS: COMPLICATIONS: None PMHx - PAST MEDICAL HISTORY Diagnosis Date - CAD (coronary artery disease) 2008 - Hypertension - [place] (myocardial infarction) (HCC) 2008 - Raynaud phenomenon decreased beta sascha and added procardia to help - S/P CABG x 4 2008 - Stented coronary artery 2008 COMORBIDITIES - Chronic Alcohol Abuse, Chronic Drug Abuse, COPD, HTN and [place] Post Op Occurrences - None Wound Classification - Contaminated Operative note dictated in the [facility] dictation system. Amado Loza MD PROGRESS Observed: 02/20/2018 Status: COMPLETED Source: [place] 3:34 PM [facility] REPOSITORY [facility] ID: [id number] Author: Norma Freed) Service: (none) Author Type: Physician Supervisor Molding Type: Progress Notes Filed: 02/20/2018 3:56 PM Note Text: FOLLOW UP VISIT - ENDOSCOPY NAME: Gracy Olivera [facility] NO.: [id number] DATE OF SERVICE: 02/20/2018 : 1955 REFERRING PHYSICIAN: Kenn Hunter MD Gracy is a patient I am following for screening colonoscopy and symptomatic GERD with long-standing history of tobacco and alcohol use. Dr. Loza performed upper and lower endoscopy on 02/13/18. The patient was found to have normal colonoscopy, normal stomach and normal-appearing esophagus. Pathology demonstrated: MICROSCOPIC DIAGNOSIS A. Antrum, biopsy: Mild gastritis. See microscopic description and comment. B. GE junction, biopsy: A fragment of gastroesophageal mucosa with chronic inflammation. Intestinal metaplasia (goblet cell metaplasia) is not identified. See comment. C. Mid esophagus, biopsy: A fragment of squamous epithelium with mild chronic inflammation. SJ:breanna 02/15/18 COMMENT A. The results of immunohistochemistry for Helicobacter pylori will be reported separately ([id number]). B. The specimen predominantly consists of squamous epithelium. Alcian blue/PAS stain with matched control is used in the evaluation of the specimen. MICROSCOPIC DESCRIPTION Slides are reviewed. A. The specimen shows fragments of gastric mucosa with chronic inflammatory cell infiltrates in the lamina propria consisting of lymphocytes and plasma cells, consistent with mild chronic gastritis. RESULTS: ANTIBODY / CLONE RESULT Block A H Pylori (polyclonal) negative These tests were developed and their performance characteristics determined by [facility]. They may not have been cleared or approved by the U.S. Food and Drug Administration. The FDA has determined that such clearance or approval is not necessary. INTERPRETATION: A. Antral biopsy: Negative for Helicobacter pylori organisms. SJ:breanna 02/15/18 The patient notes no new complaints since the procedure. He is taking his PPI as directed. He does note that caffeine seems to aggravate his symptoms. VITALS: There were no vitals taken for this visit. General: patient is alert, cooperative, in no acute distress On examination, the abdomen is benign. Assessment IMPRESSION: GERD, mild gastritis, normal esophagus PLAN: Dietary and lifestyle modifications as discussed -Avoid eating/drinking after 7 pm -Recommend avoidance of caffeine, spicy foods, alcohol, NSAIDs -Recommend tobacco cessation -Follow up if symptoms persist or worsen despite above measures -Regarding colonoscopy which was normal, Dr. Loza has recommended 10-year follow-up. Of note patient's chart mentions a family history of colon cancer in brother, but patient states he is unsure whether this is correct. He states he will check into this. We did discuss that if he confirms a family history of colon cancer, his recommendation for follow-up would change to 5 years for follow-up instead of 10. Patient verbalized understanding of all above and agreed with the plan Diagnoses: (K21.0) Gastroesophageal reflux disease with esophagitis (primary encounter diagnosis) (K29.30) Chronic superficial gastritis without bleeding (Z72.0) Tobacco use I spent 20 minutes in the visit, with more than 50% of the total [id number] time of the visit in counseling / coordination of care. MALIK Tillman Observed: 02/20/2018 Status: COMPLETED Source: [place] 1:00 PM [facility] REPOSITORY Office Visit (GENSWS) GRACY PONCE ([id number]) 1955 M Date Time Provider Department 02/20/18 1:00 PM NORMA JORDAN (PA) During your visit today, we recorded the following information about you: Norma Jordan PA-C 02/20/2018 1:26 PM Signed -Recommend avoidance of caffeine and NSAIDs, recommend smoking cessation -Avoid eating/drinking after 7 pm -Call if symptoms persist or worsen The following instructions are important for you related to your office visit today with the [facility]. INSTRUCTIONS FOR PEPTIC ULCER DISEASE - ESOPHAGITIS I discussed with you the findings of your upper endoscopy. Your upper endoscopy demonstrated esophagitis Esophagitis may be a form of peptic irritation, with acid moving from the stomach to the esophagus (gastroesophageal reflux) Factors that increase acid production include smoking and stress. If you smoke, stopping smoking will often cure these issues without needing other medications. Over the counter medications including antiacids and acid reducing medications including H2 blockers (Zantac and the like) and proton pump inhibitors (prilosec, prevacid and the like) neutralize or prevent acid production. Prescription strength proton pump inhibitors (PPIs) may be necessary if your symptoms persist. Carafate may be added to PPI treatment in refractory cases. Avoiding smoking, alcohol and antiinflammatory medications are important in the successful treatment of reflux esophagitis and peptic diseases. Other factors that contribute to GERD and esophagitis are being overweight, eating large meals before laying down and certain foods. Weight loss will help improve many GERD complaints. Remaining upright after eating large meals and having a small supper will also help symptoms. Avoiding food that contribute to reflux - chocolate, caffeine, cheddar cheese may also help. Follow up upper endoscopy may be recommended to assure healing of the esophagus. New or worsening symptoms such are epigastric pain, burning, difficulty swallowing or food sticking should be relayed to your physician. Feeling full early after eating, or black, tarry, foul smelling stools are also worrisome. If you have any difficulties or concerns, you should contact our office immediately. If you note any additional difficulties, questions, or concerns, you should contact our office immediately @ [phone] and ask to be transferred to the General Surgery department. The following instructions are important for you related to your office visit today with the [facility]. INSTRUCTIONS FOLLOWING A NORMAL COLONOSCOPY 10YR I discussed with you the findings of your colonoscopy. Since there were no worrisome abnormalities, I recommend you undergo repeat endoscopic screening every 10 years. This is the current recommendation for colon cancer screening. If you note bleeding, change in bowel habits, or other suspicious colon related symptoms before that time, those symptoms should be evaluated as necessary. If you note any additional difficulties, questions, or concerns, you should contact our office immediately @ [phone] and ask to be transferred to the General Surgery department. Norma Jordan PA-C 02/20/2018 3:56 PM Signed FOLLOW UP VISIT - ENDOSCOPY NAME: Gracy Olivera [facility] NO.: [id number] DATE OF SERVICE: 02/20/2018 : 1955 REFERRING PHYSICIAN: Kenn Hunter MD Gracy is a patient I am following for screening colonoscopy and symptomatic GERD with long-standing history of tobacco and alcohol use. Dr. Loza performed upper and lower endoscopy on 02/13/18. The patient was found to have normal colonoscopy, normal stomach and normal-appearing esophagus. Pathology demonstrated: MICROSCOPIC DIAGNOSIS A. Antrum, biopsy: Mild gastritis. See microscopic description and comment. B. GE junction, biopsy: A fragment of gastroesophageal mucosa with chronic inflammation. Intestinal metaplasia (goblet cell metaplasia) is not identified. See comment. C. Mid esophagus, biopsy: A fragment of squamous epithelium with mild chronic inflammation. SJ:breanna 02/15/18 COMMENT A. The results of immunohistochemistry for Helicobacter pylori will be reported separately ([id number]). B. The specimen predominantly consists of squamous epithelium. Alcian blue/PAS stain with matched control is used in the evaluation of the specimen. MICROSCOPIC DESCRIPTION Slides are reviewed. A. The specimen shows fragments of gastric mucosa with chronic inflammatory cell infiltrates in the lamina propria consisting of lymphocytes and plasma cells, consistent with mild chronic gastritis. RESULTS: ANTIBODY / CLONE RESULT Block A H Pylori (polyclonal) negative These tests were developed and their performance characteristics determined by [facility]. They may not have been cleared or approved by the U.S. Food and Drug Administration. The FDA has determined that such clearance or approval is not necessary. INTERPRETATION: A. Antral biopsy: Negative for Helicobacter pylori organisms. SJ:breanna 02/15/18 The patient notes no new complaints since the procedure. He is taking his PPI as directed. He does note that caffeine seems to aggravate his symptoms. VITALS: There were no vitals taken for this visit. General: patient is alert, cooperative, in no acute distress On examination, the abdomen is benign. Assessment IMPRESSION: GERD, mild gastritis, normal esophagus PLAN: Dietary and lifestyle modifications as discussed -Avoid eating/drinking after 7 pm -Recommend avoidance of caffeine, spicy foods, alcohol, NSAIDs -Recommend tobacco cessation -Follow up if symptoms persist or worsen despite above measures -Regarding colonoscopy which was normal, Dr. Loza has recommended 10-year follow-up. Of note patient's chart mentions a family history of colon cancer in brother, but patient states he is unsure whether this is correct. He states he will check into this. We did discuss that if he confirms a family history of colon cancer, his recommendation for follow-up would change to 5 years for follow-up instead of 10. Patient verbalized understanding of all above and agreed with the plan Diagnoses: (K21.0) Gastroesophageal reflux disease with esophagitis (primary encounter diagnosis) (K29.30) Chronic superficial gastritis without bleeding (Z72.0) Tobacco use I spent 20 minutes in the visit, with more than 50% of the total [id number] time of the visit in counseling / coordination of care. Norma Jordan PA-C Referring Provider: NORMA JORDAN) [[id number]] Allergies As of Date: 02/20/2018 (No Known Allergies) Date Reviewed: 02/20/2018 Reviewed by: Norma Freed) - Fully Assessed Primary Visit Diagnosis:Gastroesophageal reflux disease with esophagitis [K21.0] Other Visit Diagnoses:Chronic superficial gastritis without bleeding [K29.30] Tobacco use [Z72.0] Prescriptions as of 02/20/2018 Sig: NIFEDIPINE ER 90 MG TABLET,EX* Take 1 tablet by mouth once d* VENTOLIN HFA 90 MCG/ACTUATION* INHALE 2 PUFFS EVERY 4 HOURS * GABAPENTIN 300 MG CAPSULE TAKE 1 CAPSULE BY MOUTH THREE* OMEPRAZOLE 20 MG CAPSULE,MINAL* TAKE 1 TABLET EVERY DAY BREO ELLIPTA 200 MCG-25 MCG/D* Inhale 1 Inhalation as instru* ISOSORBIDE MONONITRATE ER 30 * Take 1 tablet by mouth once d* ATORVASTATIN 80 MG TABLET Take 0.5 tablets by mouth evelyn* FLUOXETINE 20 MG CAPSULE TAKE 1 CAPSULE EVERY DAY NITROGLYCERIN 0.4 MG SUBLINGU* Dissolve 1 tablet under the t* ASPIRIN 81 MG TABLET,DELAYED * Take 1 tablet by mouth once d* Problem List As Of Date 02/20/2018 Noted Resolved CAD (coronary artery disease) [I25.10] INVALID FOR* Hypertension [I10] INVALID FOR* Anxiety [F41.9] INVALID FOR* Pain in joint, upper arm [M25.529] INVALID FOR* Raynaud phenomenon [I73.00] More... Polyneuropathy (HCC) [G62.9] INVALID FOR* Tobacco use [Z72.0] INVALID FOR* ETOH abuse [F10.10] INVALID FOR* Other instructions from your clinician: -Recommend avoidance of caffeine and NSAIDs, recommend smoking cessation -Avoid eating/drinking after 7 pm -Call if symptoms persist or worsen The following instructions are important for you related to your office visit today with the [facility]. INSTRUCTIONS FOR PEPTIC ULCER DISEASE - ESOPHAGITIS I discussed with you the findings of your upper endoscopy. Your upper endoscopy demonstrated esophagitis Esophagitis may be a form of peptic irritation, with acid moving from the stomach to the esophagus (gastroesophageal reflux) Factors that increase acid production include smoking and stress. If you smoke, stopping smoking will often cure these issues without needing other medications. Over the counter medications including antiacids and acid reducing medications including H2 blockers (Zantac and the like) and proton pump inhibitors (prilosec, prevacid and the like) neutralize or prevent acid production. Prescription strength proton pump inhibitors (PPIs) may be necessary if your symptoms persist. Carafate may be added to PPI treatment in refractory cases. Avoiding smoking, alcohol and antiinflammatory medications are important in the successful treatment of reflux esophagitis and peptic diseases. Other factors that contribute to GERD and esophagitis are being overweight, eating large meals before laying down and certain foods. Weight loss will help improve many GERD complaints. Remaining upright after eating large meals and having a small supper will also help symptoms. Avoiding food that contribute to reflux - chocolate, caffeine, cheddar cheese may also help. Follow up upper endoscopy may be recommended to assure healing of the esophagus. New or worsening symptoms such are epigastric pain, burning, difficulty swallowing or food sticking should be relayed to your physician. Feeling full early after eating, or black, tarry, foul smelling stools are also worrisome. If you have any difficulties or concerns, you should contact our office immediately. If you note any additional difficulties, questions, or concerns, you should contact our office immediately @ [phone] and ask to be transferred to the General Surgery department. The following instructions are important for you related to your office visit today with the [facility]. INSTRUCTIONS FOLLOWING A NORMAL COLONOSCOPY 10YR I discussed with you the findings of your colonoscopy. Since there were no worrisome abnormalities, I recommend you undergo repeat endoscopic screening every 10 years. This is the current recommendation for colon cancer screening. If you note bleeding, change in bowel habits, or other suspicious colon related symptoms before that time, those symptoms should be evaluated as necessary. If you note any additional difficulties, questions, or concerns, you should contact our office immediately @ [phone] and ask to be transferred to the General Surgery department. Follow-up and Disposition History Recorded Encounter Status:Closed by NORMA JORDAN PA-C on 02/20/18 GASTRIC BIOPSY Observed: 02/13/2018 Status: F Source: [place] 1:30 PM [facility] REPOSITORY Patient: GRACY PONCE : 1955 (62/M) Acct Num: [id number] Phys: Amado Loza MD Unit Num: [id number] Loc: EN Specimen: [id number] Received: 02/13/181635 Spec Type: Gastric Bx TISSUES 1 TISSUES: A. Gastric mucous membrane B. Gastric mucous membrane C. Esophageal mucous membrane COMMENT A. The results of immunohistochemistry for Helicobacter pylori will be reported separately ([id number]). B. The specimen predominantly consists of squamous epithelium. Alcian blue/PAS stain with matched control is used in the evaluation of the specimen. GROSS DESCRIPTION A - Received in fixative is one container labeled with the patient's name and designated antral biopsy for H. pylori and path. The specimen consists of one irregular fragment of light olivo soft tissue that measures 0.3 x 0.3 x 0.1 cm. The specimen is totally submitted in one cassette. B - Received in fixative is one container labeled with the patient's name and designated GE junction biopsy. The specimen consists of one irregular fragment of light olivo soft tissue that measures 0.4 x 0.3 x 0.1 cm. The specimen is totally submitted in one cassette. C - Received in fixative is one container labeled with the patient's name and designated mid esophagus biopsy. The specimen consists of one irregular fragment of light olivo soft tissue that measures 0.6 x 0.3 x 0.1 cm. The specimen is totally submitted in one cassette. / THU:breanna 02/14/18 TC:3 CPT: 71392 x3, 30715 HEADER OPERATION: Colonoscopy, EGD ([facility] PRE-OP DIAGNOSIS: Screening, GERD, esophagitis TISSUE SUBMITTED: A - Biopsy of antrum for H. pylori and path, B - GE junction biopsy, C - Mid esophagus biopsy MICROSCOPIC DESCRIPTION Slides are reviewed. A. The specimen shows fragments of gastric mucosa with chronic inflammatory cell infiltrates in the lamina propria consisting of lymphocytes and plasma cells, consistent with mild chronic gastritis. MICROSCOPIC DIAGNOSIS A. Antrum, biopsy: Mild gastritis. See microscopic description and comment. B. GE junction, biopsy: A fragment of gastroesophageal mucosa with chronic inflammation. Intestinal metaplasia (goblet cell metaplasia) is not identified. See comment. C. Mid esophagus, biopsy: A fragment of squamous epithelium with mild chronic inflammation. SJ:breanna 02/15/18 Signed Greg Last 02/15/18 <signature on file> Performed By: #### PGASB #### [facility] [address] [place] [address]. [place], [address] IMMUNOHISTOCHEMISTRY Observed: 02/13/2018 Status: F Source: [place] 1:30 PM [facility] REPOSITORY Patient: GRACY PONCE : 1955 (62/M) Acct Num: [id number] Phys: Denia HOLT,Amado Unit Num: [id number] Loc: EN Specimen: [id number] Received: 02/15/18 - 1029 Spec Type: IMMUNO TISSUES 1 TISSUES: A. Stomach, NOS SPECIMEN INFORMATION: Tissue Source: A - Antral biopsy Clinical Info: Screening, GERD, esophagitis Specimen Number: [id number] CPT code: 15790 METHODOLOGY: Deparaffinized sections of prefer/formalin-fixed tissue or PAP/DQ stained slides are incubated with monoclonal/polyclonal antibodies/oligonucleotide probes. Localization is made via biotin free immunoperoxidase method. Appropriate controls are performed and reacted as expected. Results on target cell population are indicated in the following table: RESULTS: ANTIBODY / CLONE RESULT Block A H Pylori (polyclonal) negative These tests were developed and their performance characteristics determined by [facility]. They may not have been cleared or approved by the U.S. Food and Drug Administration. The FDA has determined that such clearance or approval is not necessary. INTERPRETATION: A. Antral biopsy: Negative for Helicobacter pylori organisms. SJ:breanna 02/15/18 PHYSICIAN AND INSTITUTION [address] [address] Signed Greg Last 02/15/18 <signature on file> Performed By: #### PIMM #### [facility] [address] [place] [address]. [place], [address] OPERATIVE REPORT - Observed: 02/13/2018 Status: F Source: [place] [facility] 1:27 PM [facility] REPOSITORY [facility] Medical Records Department [address] [place] [id number] Operative Report - Endoscopy MR#: [id number] Acct: [id number] Name: GRACY PONCE Rep #: [id number] : 1955 62 From: Amado Loza MD PCP: Kenn Hunter MD Status: [facility] Patient Name: Gracy Ponce Procedure Date: 02/13/2018 12:48 PM Date of : 1955 Age: 62 Procedure: Upper GI endoscopy Indications: Follow-up of gastro-esophageal reflux disease Providers: Amado Loza MD Medicines: Monitored Anesthesia Care Patient Profile: This is a 62 year old male. Refer to note in patient chart for documentation of history and physical. Complications: No immediate complications. Procedure: Pre-Anesthesia Assessment: - Prior to the procedure, a History and Physical was performed, and patient medications and allergies were reviewed. The patient is competent. The risks and benefits of the procedure and the sedation options and risks were discussed with the patient. All questions were answered and informed consent was obtained. Patient identification and proposed procedure were verified by the physician, the nurse and the physical education professor in the procedure room. Mental Status Examination: alert and oriented. Airway Examination: normal oropharyngeal airway and neck mobility. Respiratory Examination: clear to auscultation. CV Examination: normal. Prophylactic Antibiotics: The patient does not require prophylactic antibiotics. Prior Anticoagulants: The patient has taken aspirin, last dose was day of procedure. ASA Grade Assessment: III - A patient with severe systemic disease. After reviewing the risks and benefits, the patient was deemed in satisfactory condition to undergo the procedure. The anesthesia plan was to use monitored anesthesia care (MAC). Immediately prior to administration of medications, the patient was re-assessed for adequacy to receive sedatives. The heart rate, respiratory rate, oxygen saturations, blood pressure, adequacy of pulmonary ventilation, and response to care were monitored throughout the procedure. The physical status of the patient was re-assessed after the procedure. After obtaining informed consent, the endoscope was passed under direct vision. Throughout the procedure, the patient's blood pressure, pulse, and oxygen saturations were monitored continuously. The gastroscope was introduced through the mouth, and advanced to the jejunum. The upper GI endoscopy was accomplished without difficulty. The patient tolerated the procedure well. Scope In: 1:03:44 PM Scope Out: 1:07:03 PM Total Procedure Duration Time 0 hours 3 minutes 19 seconds Findings: The examined jejunum was normal. The in the duodenum was normal. The entire examined stomach was normal. Biopsies were taken with a cold forceps for histology. The gastroesophageal junction was normal. Biopsies were taken with a cold forceps for histology. No endoscopic abnormality was evident in the esophagus to explain the patient's complaint of dysphagia. Biopsies were taken with a cold forceps for histology. Impression: - Normal examined jejunum. - Normal. - Normal stomach. Biopsied. - Normal gastroesophageal junction. Biopsied. - No endoscopic esophageal abnormality to explain patient's dysphagia. Biopsied. Recommendation: - Return to physician botany laboratory assistant in 1 week. - Continue present medications. Procedure Code(s): --- Professional --- 16774, Esophagogastroduodenoscopy, flexible, transoral; with biopsy, single or multiple CPT copyright 2017 [employer]. All rights reserved. The codes documented in this report are preliminary and upon information coder review may be revised to meet current compliance requirements. Amado Loza MD 02/13/2018 1:27:04 PM This report has been signed electronically. Number of Addenda: 0 Note Initiated On: 02/13/2018 12:48 PM 02/13/18 1327 Date Amado Loza MD Cosigner Signature: Date (if indicated) CC: Amado Loza MD; Kenn Hunter MD Date Dictated: 02/13/18 1248 Date Transcribed: Cognos Bi Developer: BREANNA Signed OPERATIVE REPORT - Observed: 02/13/2018 Status: F Source: [place] [facility] 1:25 PM [facility] REPOSITORY [facility] Medical Records Department [address] [place] [address] Operative Report - Endoscopy MR#: [id number] Acct: [id number] Name: GRACY PONCE Rep #: [id number] : 1955 62 From: Amado Loza MD PCP: Kenn Hunter MD Status: [facility] Patient Name: Gracy Ponce Procedure Date: 02/13/2018 1:08 PM Date of : 1955 Age: 62 Procedure: Colonoscopy Indications: Screening for colorectal malignant neoplasm Providers: Amado Loza MD Medicines: Monitored Anesthesia Care Patient Profile: This is a 62 year old male. Refer to note in patient chart for documentation of history and physical. Last Colonoscopy: none. The patient's first colonoscopy is today. Complications: No immediate complications. Procedure: Pre-Anesthesia Assessment: - Prior to the procedure, a History and Physical was performed, and patient medications and allergies were reviewed. The patient is competent. The risks and benefits of the procedure and the sedation options and risks were discussed with the patient. All questions were answered and informed consent was obtained. Patient identification and proposed procedure were verified by the physician, the nurse and the physical education professor in the procedure room. Mental Status Examination: alert and oriented. Airway Examination: normal oropharyngeal airway and neck mobility. Respiratory Examination: clear to auscultation. CV Examination: normal. Prophylactic Antibiotics: The patient does not require prophylactic antibiotics. Prior Anticoagulants: The patient has taken no previous anticoagulant or antiplatelet agents. ASA Grade Assessment: III - A patient with severe systemic disease. After reviewing the risks and benefits, the patient was deemed in satisfactory condition to undergo the procedure. The anesthesia plan was to use monitored anesthesia care (MAC). Immediately prior to administration of medications, the patient was re-assessed for adequacy to receive sedatives. The heart rate, respiratory rate, oxygen saturations, blood pressure, adequacy of pulmonary ventilation, and response to care were monitored throughout the procedure. The physical status of the patient was re-assessed after the procedure. After I obtained informed consent, the scope was passed under direct vision. Throughout the procedure, the patient's blood pressure, pulse, and oxygen saturations were monitored continuously. The Colonoscope was introduced through the anus and advanced to 3 cm into the ileum. The colonoscopy was performed without difficulty. The patient tolerated the procedure well. The quality of the bowel preparation was good. Moderate Sedation: Moderate (conscious) sedation was personally administered by an anesthesia professional. The following parameters were monitored: oxygen saturation, heart rate, blood pressure, and response to care. Scope In: 1:10:56 PM Scope Withdrawal Time 0 hours 4 minutes 19 seconds Scope Out: 1:20:01 PM Total Procedure Duration Time 0 hours 9 minutes 5 seconds Findings: The perianal and digital rectal examinations were normal. The entire examined colon appeared normal on direct and retroflexion views. Impression: - The entire examined colon is normal on direct and retroflexion views. - No specimens collected. Recommendation: - Discharge patient to home. - Resume previous diet. - Continue present medications. - Repeat colonoscopy in 10 years for screening purposes. - Return to physician botany laboratory assistant. Procedure Code(s): --- Professional --- G0121, Colorectal cancer screening; colonoscopy on individual not meeting criteria for high risk CPT copyright 2017 [employer]. All rights reserved. The codes documented in this report are preliminary and upon information coder review may be revised to meet current compliance requirements. Amado Loza MD 02/13/2018 1:24:46 PM This report has been signed electronically. Number of Addenda: 0 Note Initiated On: 02/13/2018 1:08 PM 02/13/18 1324 Date Amado Loza MD Cosign Signature: Date (if indicated) CC: Amado Loza MD; Kenn Hunter MD Date Dictated: 02/13/18 1308 Date Transcribed: Cognos Bi Developer: BREANNA Signed CNOP Observed: 02/13/2018 Status: COMPLETED Source: [place] 12:00 AM [facility] REPOSITORY Operative Note (Enc) (GENSWS) Progress Notes: Amado Loza MD 02/26/2018 11:37 AM Signed OPERATIVE NOTATION FOR [facility] SURGICAL PROCEDURE. February 13, 2018 Gracy Ponce 1955 [id number] male PROCEDURE: EGD WITH BIOPSY - [id number] and COLONOSCOPY - [id number] SURGEON: Liban Loza M.D. FACS CLASSIFIED COPY CONTROL CLERK: None DEPT: WQ PROVIDER: [id number] Loza MD POS: [id number] DIAGNOSIS: (K21.9) Gastroesophageal reflux disease, esophagitis presence not specified (primary encounter diagnosis) (Z12.11) Encounter for screening for malignant neoplasm of colon ASA CLASS: 3 - Severe FINDINGS: COMPLICATIONS: None PMHx - PAST MEDICAL HISTORY Diagnosis Date - CAD (coronary artery disease) 2008 - Hypertension - [place] (myocardial infarction) (HCC) 2008 - Raynaud phenomenon decreased beta sascha and added procardia to help - S/P CABG x 4 2008 - Stented coronary artery 2008 COMORBIDITIES - Chronic Alcohol Abuse, Chronic Drug Abuse, COPD, HTN and [place] Post Op Occurrences - None Wound Classification - Contaminated Operative note dictated in the [facility] dictation system. Amado Loza MD Encounter Status:Closed by AMADO LOZA MD on 02/26/18 HISTORY AND PHYSICAL Observed: 02/12/2018 Status: F Source: [place] EXAM 7:38 AM [facility] REPOSITORY [facility] Medical Records Department [address] [place] [address] History and Physical 02/12/18 0736 MR#: [id number] Acct: [id number] Name: GRACY PONCE Rep #: [id number] : 1955 62 From: Amado Loza MD PCP: Kenn Hunter MD Status: PRE [facility] Location: EN History and Physical Date of Admission: 02/13/18 HISTORY AND PHYSICAL Gracy Gonzalesrell 1955 REFERRING PHYSICIAN: Kenn Hunter MD CHIEF COMPLAINT: Consult (colonoscopy) HPI: The patient is a 62 year old male referred for endoscopy. Gracy notes no history of colon complaints. He denies any change in bowel habits, weight changes, blood in stools, black tarry stools or abdominal pain. Denies any known family history of colon cancer. He has never had a screening colonoscopy. The patient notes symptomatic acid reflux in the morning with heartburn and coughing, x years. He has smoked cigars for many years, currently 1/2 pack per day with no interest in quitting. He notes also that he has been drinking since I was 13. States he used to drink 4-5 cans of beer daily but recently has cut back on his drinking significantly. He states he has only had two drinks in the last two weeks. He has never had upper endoscopy. The patient is being seen by me today at the request of Dr. Hunter for my opinion and advice regarding screening colonoscopy. Patient's past medical history is significant for coronary artery disease, hypertension, past [place] and CABG x 4, stented coronary artery, COPD. He follows with Dr. Hunter for his chronic medical conditions and with Dr. Andino in cardiology. He states he does follow with a fuel verification technician as well but is unsure who this is. PAST MEDICAL HISTORY PAST MEDICAL HISTORY Diagnosis Date CAD (coronary artery disease) 2008 Hypertension [place] (myocardial infarction) (HCC) 2008 Raynaud phenomenon decreased beta sascha and ad ded procardia to help S/P CABG x 4 2009 Stented coronary artery 2009 PAST SURGICAL HISTORY PAST SURGICAL HISTORY Procedure Laterality Date APPENDECTOMY CABG (4) VEIN GRAFTS AND ARTERIAL GRAFT(S) 2009 [facility] CATARACT EXTRACTION HX Bilateral PAST SURGICA L HISTORYOF Right release trigger finger REMOVAL OF TONSILS; AGE 12 OR OVER CURRENT MEDICATIONS Current Outpatient Prescriptions: gabapentin (NEURONTIN) 300 mg capsule TAKE 1 CAPSULE BY MOUTH THREE TIMES DAILY NIFEdipine ER (PROCARDIA XL) 90 mg 24 hr tablet Take 1 tablet by mouth once daily.VENTOLIN HFA 90 mcg/actuation inhaler Inhale 2 Puffs as instructed every 4 hours as need ed. omeprazole (PRILOSEC) 20 mg capsule TAKE 1 TABLET EVERY DAY BREO ELLIPTA 200-25 mcg/dose inhaler Inhale1 Inhalation as instructed once daily. DO NOT CLICK OPEN UNTIL READY FOR DOSE is osorbide mononitrate ER (IMDUR) 30 mg 24 hr tablet Take 1 tablet by mouth once daily. FLUoxeti ne (PROZAC) 20 mg capsule TAKE 1 CAPSULE EVERY DAY nitroglycerin sublingual (NITROQUICK) 0.4 m g SL tablet Dissolve 1 tablet under the tongue as needed. for chest pain, if no pain relief wit hin 5 minutes contact 911 aspirin, enteric coated (ECOTRIN LOW STRENGTH) 81 mg EC tablet Take 1 tablet by mouth once daily. atorvastatin (LIPITOR) 80 mg tablet Take 0.5 tablets by mouth da nuha at bedtime. No current facility-administered medications for this visit. ALLERGIES: Patient has no known allergies. PERSONAL HISTORY: SOCIAL HISTORY Social History Marital status: Single Spouse name: Years of education: Number of children: Social History Main Topics Smoki ng status: Current Every Day Smoker Packs/da y: 0.50 Years: 40.00 Types: Cigarettes Smokeless tobacco: Never Used Alcoholuse: Yes Comment: drinks about a couple beer a day Drug use: No FAMILY HISTORY: FAMILY HISTORY FAMILY HISTORY Problem Relation Age of Onset Cancer Father unkown primary-started in his axilla. other (murdered) Mother Colon Cancer Brother Diabetes Brother DiabetesSister Diabetes Brother Diabetes Brother REVIEW OF SYMPTOMS: The review of systems data was entered by the nurse and reviewed by wa Nursing Notes: Amirah Griffin RN 12/12/2017 2:32 PM Signed REVIEW OF SYSTEMS: General: The patient denies fatigue, denies weight loss, denies weight gain, notes feeling hot, and denies feelings of cold. Eyes: The patient denies glaucoma, notes eye injury/surgery, wears glasses or contacts. Ear/Nose/Throat: The patient denies allergies, denies hayfever, denies ear infections, and denies bloody noses. Cardiovascular: The patient denies chest pain, notes heart disease, notes high blood pressure,notes cardiac stent, notes prior heart attack, denies irregular heart beat, notes high cholesterol, notes poor circulation, denies heart failure, other cardiac issues, notes claudication, denies cold feet, denies peripheral arterial stent. Respiratory: The patient denies tuberculosis, denies pneumonia, notes frequent cough, denies pulmonary embolism, notes shortness of breath, and denies coughing up blood. Gastrointestinal: The patient denies difficulty swallowing, notes acid reflux, denies ulcers, denies vomiting, denies jaundice/hepatitis, denies gallbladder problems, denies black or tarry stools, denies hemorrhoids, denies bleeding from rectum, denies diverticulitis, denies constipation, denies diarrhea, denies loss of stool control, and denies hernias. Kidney/Bladder: The patient denies kidney stones, denies urine infections, and denies bloody urine. Skin: The patient denies a history of skin cancer, denies bleeding/changing moles, and denies a history of skin rash. Neurologic: The patient denies a history of epilepsy/convulsions, denies headaches, denies head/spinal injuries, and denies stroke/TIA. Psychiatric: The patient denies psychiatric medications, denies depression, and denies voices, denies substance abuse. Endocrine: The patient denies thyroid disorders, denies diabetes, and denies hormonal problems. Hematologic: The patient denies a history of bruising, denies bleeding, and denies anemia, denies blood clots. Infections: The patient denies a history of measles and mumps, denies rheumatic fever, and denies sexually transmitted diseases. Musculoskeletal: The patient denies back pain/injury, denies back problems, denies sciatica, NOTES knee/foot trouble, denies arthritis, or denies gout. When was patient's last Mammogram screening? N/A Last Colonoscopy: no Amirah Griffin RN I have confirmed and edited as necessary, the PFSH and ROS obtained by others. PHYSICAL EXAMINATION: General: The patient is 62 year old male, thin in appearance, well hydrated in no acute distress. The patient is oriented to time, place, and person. VITALS: Blood pressure 128/64, pulse 76, weight 65.7 kg (144 lb 12.8 oz). Body mass index is 19.64 kg/m . HEENT: Normal cephalic, ataumatic, pupils are equally round, sclera are anicteric, mucous membranes are moist, oropharynx is clear. Neck has no masses, asymmetry or lymphadenopathy. Respiratory: Clear to auscultation and percussion. Normal respiratory excursion and pattern. Cardiac: Examination is regular rate and rhythm. Abdominal exam: Soft, nontender, with no palpable masses. No hepatosplenomegaly. No palpable hernias. Rectal exam: exam deferred Extremities: no clubbing, cyanosis or edema. No adenopathy. Other: LABORATORY VALUES: As Noted RADIOLOGIC STUDIES: As Noted Assessment IMPRESSION: encounter for screening colonoscopy. GERD and long-term history of tobacco and alcohol use, recommend EGD in addition to colonoscopy PLAN: We will plan for upper and lower endoscopy with MAC. We discussed the risks and benefits of the planned endoscopy. I have informed the patient that complications can occur including failure to complete the endoscopy and perforation. The patient had the opportunity to ask questions concerning the planned endoscopy. My staff has also explained the procedure to the patient in understandable terms and has given the patient printed material concerning the procedure. The patient freely consents to surgery. I plan to use golytely bowel preparation for endoscopy I plan for monitored anesthetic care. Diagnoses: (Z12.11) Encounter for screening for malignant neoplasm of colon (primary encounter diagnosis) (I25.119) Coronary artery disease involving lummi heart with angina pectoris, unspecified vessel or lesion type (HCC) (F10.10) ETOH abuse (K21.9) Gastroesophageal reflux disease, esophagitis presence not specified My findings have been communicated to Dr. Hunter via shared medical record. This note will be forwarded to Dr. Kenn Hunter MD. Return to Clinic: The patient is instructed to follow-up with me 1 week post operatively. I spent 30 minutes in the visit, with more than 50% of the total [id number]-qv-daxy time of the visit in counseling / coordination of care. Norma Jordan PA-C 02/12/18 0738 <Electronically signed by Amado Loza MD> Date Amado Loza MD Cosigner Signature: Date (if applicable) CC: Amado Loza MD; Kenn Hunter MD Signed ALT Collected: 12/20/2017 Status: F Source: [place] 11:48 AM [facility] REPOSITORY TYPE CODE TESTS RESULT OUT OF RANGE REFERENCE UNITS LAB ALT 10-54 U/L ALT 18 Performed By: #### ALT, BMP, CK, LIPNF #### [facility] [address] [id number] BASIC METABOLIC PANL Collected: 12/20/2017 Status: F Source: [place] 11:48 AM [facility] REPOSITORY TYPE CODE TESTS RESULT OUT OF REFERENCE UNITS RANGE LAB GLU 74-99 mg/dL Low Glucose 69 Result Comment: The [place] Diabetes Association (ADA) provides guidance for cutoff values for fasting glucose and random glucose. The ADA defines fasting as no caloric intake for at least 8 hours. Fas ting plasma glucose results between 100 to 125 mg/dL indicate increased risk for diabetes (prediabetes). Fasting plasma glucose results greater than or equal to 126 mg/dL meet the criteria for diagnosis of diabetes. In the absence of unequivocal hyperglycemia, results should be confirmed by repeat testing. In a patient with classic symptoms of hyperglycemia or hyperglycemic crisis, random plasma glucose results greater than or equal to 200 mg/dL meet the criteria for diagnosis of diabetes. Reference: Standards of Medical Care in Diabetes 2016, [place] [employer] Association. Diabetes Care. 2016.39(Suppl 1). LAB BUN 9-24 mg/dL BUN Low 7 LAB CRET 0.73-1.22 mg/dL Creatinine 0.81 LAB NA 136-144 mmol/L Sodium Low 134 LAB K 3.7-5.1 mmol/L Potassium 4.2 LAB CL 97-105 mmol/L Chloride Low 94 LAB CO2 22-30 mmol/L CO2 23 LAB AGAP 9-18 mmol/L Anion Gap 17 LAB CA 8.5-10.2 mg/dL Calcium, Total 9.7 LAB GFRAA eGFR- Amer. >60 LAB GFRNAA . eGFR-All Other Races >60 Result Comment: eGFR (Estimated GFR) Units of measure: mL/min/1.73 meters squared eGFR is derived from the reexpressed MDRD Study equation using the following parameters: serum creatinine, age, gender and race. The creatinine assay has been calibrated to be traceable to IDMS. An eGFR <60 mL/min/1.73m2 for >3 months is consistent with chronic kidney disease. Refer to KDOQI guidelines for clinical interpretation. In patients with unstable renal function, e.g. those with acute kidney injury, the eGFR may not accurately reflect actual GFR. Performed By: #### ALT, BMP, CK, LIPNF #### [facility] [address] [place], [place] [address] CK Collected: 12/20/2017 Status: F Source: [facility] 11:48 AM [facility] REPOSITORY TYPE CODE TESTS RESULT OUT OF RANGE REFERENCE UNITS LAB CK 51-298 U/L CK 137 Result Comment: Please note the updated, gender-specific reference range for this test (effective 04/08/2016). Performed By: #### ALT, BMP, CK, LIPNF #### [facility] [address] [place], [place] [address] LIPID PANEL, NONFAST Collected: 12/20/2017 Status: F Source: [place] 11:48 AM [facility] REPOSITORY TYPE CODE TESTS RESULT OUT OF REFERENCE UNITS RANGE LAB CHOLNF <200 mg/dL Total Cholesterol NF 181 Result Comment: <200 mg/dL, Desirable 200-239 mg/dL, Borderline high >239 mg/dL, High LAB TRIGNF <150 mg/dL Triglycerides, NF 54 Result Comment: <150 mg/dL, Normal 150-199 mg/dL, Borderline high 200-499 mg/dL, High >499 mg/dL, Very high LAB HDLNF >39 mg/dL HDL Cholesterol, NF 78 Result Comment: 40-59 mg/dL, Acceptable >59 mg/dL, High: Negative risk factor for coronary heart disease <40 mg/dL, Low: Positive risk factor for coronary heart disease LAB LDLNF <100 mg/dL LDL Cholesterol, NF 92 Result Comment: <100 mg/dL, Optimal 100-129 mg/dL, Near optimal/above optimal 130-159 mg/dL, Borderline high 160-189 mg/dL, High >189 mg/dL, Very high Secondary prevention optimal LDL Cholesterol levels are recommended to be < 70 mg/dL LAB NOHDLN <130 mg/dL Non HDL Chol, 103 NF Result Comment: <130 mg/dL, Optimal 130-159 mg/dL, Near optimal/above optimal 160-189 mg/dL, Borderline high 190-219 mg/dL, High >219 mg/dL, Very high Secondary prevention optimal non HDL Cholesterol levels are recommended to be < 100 mg/dL LAB VLDLNF <30 mg/dL VLDL Cholesterol, NF 11 LAB TCHDLN <5.10 mg/dL T Chol/HDL Ratio NF 2.32 LAB LDLHDN <2.54 mg/dL LDL/HDL Ratio, NF 1.18 Result Comment: Reference: 1. National Cholesterol Education Program ATP III Guideline At-A-Glance Quick Desk Reference: National Heart, Lung, and Blood [place]. National Institutes of Health. 2001: NIH Publication No. 01-3305. 2. An International Atherosclerosis Society position paper: global recommendations for the management of dyslipidemia: executive summary, Atherosclerosis. 2014: 232(2):410-413. Performed By: #### ALT, BMP, CK, LIPNF #### [facility] [address] [address] PROGRESS Observed: 12/20/2017 Status: COMPLETED Source: [place] 11:34 AM [facility] REPOSITORY HNO ID: [id number] Author: Bishop Andino Service: (none) Author Type: Physician Type: Progress Notes Filed: 12/20/2017 5:46 PM Note Text: PERTINENT CARDIAC HISTORY ASHD - CABGx4 (acute PCI, then CABG) 2008 HTN HL RASHID - no CPAP Raynaud's - on nifedipine TIA PAD ADHERENCE TO GUIDELINES OK-I or ARB for HF with prior LVEF<40 (NQF 0081) - N/A ASA or Plavix for ASHD (NQF 0067) - met Beta sascha for ASHD with prior [place] or prior LVEF<40 (NQF 0070) - COPD Beta sascha for HF with prior LVEF<40 (NQF 0083) - N/A OK-I or ARB for ASHD with DM or prior LVEF<40 (NQF 0066) - N/A Statin therapy for ASHD or FHL or DM - met BMI documented and plan if >25 (NQ 0421) - lifestyle recommendation form Tobacco use screening and referral (NQ 0028) - lifestyle recommendation form Recommendation for whole food, plant based diet - lifestyle recommendation form CLINICAL IMPRESSION/PLAN: Gracy Ponce is developing claudication which is limiting. I have strongly advised him to stop smoking. His angina has improved. He's been advised to continue his current medication. He will undergo PVR study for his claudication. I will see him in 6 months or as needed. He was reminded to have his lipid profile done as soon as possible. Written and verbal health teaching given to patient, patient verbalizes understanding and agrees with treatment plan. DIAGNOSIS FOR VISIT: ASHD Hypertension HISTORY OF PRESENT ILLNESS Gracy Ponce returns for follow-up of his coronary disease and hypertension. He was started on isosorbide and is tolerating it well. Exercise tolerance has improved. He continues to smoke. He reports that he had orthopedic surgery and had no cardiac complications. He denies chest discomfort and has used no nitroglycerin. He is troubled by increasing claudication. He is unable to walk more than 25 feet before developing pain. This is limiting his ability to exercise more He denies orthopnea. He's had no syncope, palpitations, TIAs, amaurosis. ALLERGIES: ALLERGIES No Known Allergies CURRENT OUTPATIENT MEDICATIONS: gabapentin (NEURONTIN) 300 mg capsule TAKE 1 CAPSULE BY MOUTH THREE TIMES DAILY NIFEdipine ER (PROCARDIA XL) 90 mg 24 hr tablet Take 1 tablet by mouth once daily. VENTOLIN HFA 90 mcg/actuation inhaler Inhale 2 Puffs as instructed every 4 hours as needed. omeprazole (PRILOSEC) 20 mg capsule TAKE 1 TABLET EVERY DAY BREO ELLIPTA 200-25 mcg/dose inhaler Inhale 1 Inhalation as instructed once daily. DO NOT CLICK OPEN UNTIL READY FOR DOSE isosorbide mononitrate ER (IMDUR) 30 mg 24 hr tablet Take 1 tablet by mouth once daily. atorvastatin (LIPITOR) 80 mg tablet Take 0.5 tablets by mouth daily at bedtime. FLUoxetine (PROZAC) 20 mg capsule TAKE 1 CAPSULE EVERY DAY nitroglycerin sublingual (NITROQUICK) 0.4 mg SL tablet Dissolve 1 tablet under the tongue as needed. for chest pain, if no pain relief within 5 minutes contact 911 aspirin, enteric coated (ECOTRIN LOW STRENGTH) 81 mg EC tablet Take 1 tablet by mouth once daily. PHYSICAL EXAMINATION: VITAL SIGNS: BP 134/79 Pulse 104 Wt 139 lb 14.4 oz (63.5kg) Chest: Clear to percussion and auscultation. Trachea is midline. Air entry is equal. Cardiac: Regular rhythm. S1 and S2 are normal. PMI is nondisplaced. There are no murmurs, rubs or gallops. Carotids are brisk without bruits. JVP is less than 10 cm. Abdomen: Soft and nontender. There are no pulsatile masses or bruits. No liver enlargement. Bowel sounds are active. Extremities: No edema. Pulses are diffusely diminished. There is no evidence of ischemia. Recent angiography showed that his bypasses were patent. He was started on isosorbide and his statin was increased. Electronically Signed: Bishop Andino MD December 20, 2017 11:34 AM CC: Kenn Hunter MD CNOV Observed: 12/20/2017 Status: COMPLETED Source: [place] 11:00 AM [facility] REPOSITORY Office Visit (CAWSTR) GRACY PONCE ([id number]) 1955 M Date Time Provider Department 12/20/17 11:00 AM BISHOP ANDINO During your visit today, we recorded the following information about you: Pulse Blood pressure Weight 104/minute 134/79 63.5 kg Bishop Andino MD 12/20/2017 5:46 PM Signed PERTINENT CARDIAC HISTORY ASHD - CABGx4 (acute PCI, then CABG) 2008 HTN HL RASHID - no CPAP Raynaud's - on nifedipine TIA PAD ADHERENCE TO GUIDELINES OK-I or ARB for HF with prior LVEF<40 (NQF 0081) - N/A ASA or Plavix for ASHD (NQF 0067) - met Beta sascha for ASHD with prior [place] or prior LVEF<40 (NQF 0070) - COPD Beta sascha for HF with prior LVEF<40 (NQF 0083) - N/A OK-I or ARB for ASHD with DM or prior LVEF<40 (NQF 0066) - N/A Statin therapy for ASHD or FHL or DM - met BMI documented and plan if >25 (NQF 0421) - lifestyle recommendation form Tobacco use screening and referral (NQ 0028) - lifestyle recommendation form Recommendation for whole food, plant based diet - lifestyle recommendation form CLINICAL IMPRESSION/PLAN: Gracy Ponce is developing claudication which is limiting. I have strongly advised him to stop smoking. His angina has improved. He's been advised to continue his current medication. He will undergo PVR study for his claudication. I will see him in 6 months or as needed. He was reminded to have his lipid profile done as soon as possible. Written and verbal health teaching given to patient, patient verbalizes understanding and agrees with treatment plan. DIAGNOSIS FOR VISIT: ASHD Hypertension HISTORY OF PRESENT ILLNESS Gracy Ponce returns for follow-up of his coronary disease and hypertension. He was started on isosorbide and is tolerating it well. Exercise tolerance has improved. He continues to smoke. He reports that he had orthopedic surgery and had no cardiac complications. He denies chest discomfort and has used no nitroglycerin. He is troubled by increasing claudication. He is unable to walk more than 25 feet before developing pain. This is limiting his ability to exercise more He denies orthopnea. He's had no syncope, palpitations, TIAs, amaurosis. ALLERGIES: ALLERGIES No Known Allergies CURRENT OUTPATIENT MEDICATIONS: gabapentin (NEURONTIN) 300 mg capsule TAKE 1 CAPSULE BY MOUTH THREE TIMES DAILY NIFEdipine ER (PROCARDIA XL) 90 mg 24 hr tablet Take 1 tablet by mouth once daily. VENTOLIN HFA 90 mcg/actuation inhaler Inhale 2 Puffs as instructed every 4 hours as needed. omeprazole (PRILOSEC) 20 mg capsule TAKE 1 TABLET EVERY DAY BREO ELLIPTA 200-25 mcg/dose inhaler Inhale 1 Inhalation as instructed once daily. DO NOT CLICK OPEN UNTIL READY FOR DOSE isosorbide mononitrate ER (IMDUR) 30 mg 24 hr tablet Take 1 tablet by mouth once daily. atorvastatin (LIPITOR) 80 mg tablet Take 0.5 tablets by mouth daily at bedtime. FLUoxetine (PROZAC) 20 mg capsule TAKE 1 CAPSULE EVERY DAY nitroglycerin sublingual (NITROQUICK) 0.4 mg SL tablet Dissolve 1 tablet under the tongue as needed. for chest pain, if no pain relief within 5 minutes contact 911 aspirin, enteric coated (ECOTRIN LOW STRENGTH) 81 mg EC tablet Take 1 tablet by mouth once daily. PHYSICAL EXAMINATION: VITAL SIGNS: BP 134/79 Pulse 104 Wt 139 lb 14.4 oz (63.5kg) Chest: Clear to percussion and auscultation. Trachea is midline. Air entry is equal. Cardiac: Regular rhythm. S1 and S2 are normal. PMI is nondisplaced. There are no murmurs, rubs or gallops. Carotids are brisk without bruits. JVP is less than 10 cm. Abdomen: Soft and nontender. There are no pulsatile masses or bruits. No liver enlargement. Bowel sounds are active. Extremities: No edema. Pulses are diffusely diminished. There is no evidence of ischemia. Recent angiography showed that his bypasses were patent. He was started on isosorbide and his statin was increased. Electronically Signed: Bishop Andino MD December 20, 2017 11:34 AM CC: MD Bishop Joseph MD 12/20/2017 11:35 AM Signed LIFESTYLE CHANGE A healthy lifestyle is the most important component of your overall treatment plan. Please give serious thought to the following areas and commit to making assisted changes. EAT A WHOLE FOOD, PLANT BASED DIET The nutrition your body gets is more important than the medicine you take. What matters most is the overall way you eat. We encourage you to minimize the use of animal products (which include dairy and all meats except fatty fish) and use whole, unprocessed plant foods to provide your protein, vitamins and other nutrients. We have a lot of information to share with you on this topic. This is not a diet. It is a way of life that you will keep with you. EXERCISE REGULARLY It is not important to spend hours in the gym, lifting weights and perspiring heavily. A total of 2-3 hours per week of aerobic (causing you to be moderately short of breath) exercise is sufficient to improve your health. Talk to us before you begin a new exercise program, if you have heart disease or experience shortness of breath or chest pain. REDUCE STRESS Chronic emotional and physical stress leads to disease. Ways of reducing stress include meditation, visualization, prayer, yoga and other forms of relaxation therapy. Consistency is the bolaños. Find a technique that works for you and do it every day. CULTIVATE RELATIONSHIPS Loneliness and isolation have a major negative impact on health. Seek out others who can love, care for and nurture you. Avoid hurtful relationships. MAINTAIN IDEAL BODY WEIGHT The best way to do this is to do all the things above. Our bodies naturally find the right weight if we keep moving and feed ourselves the right food. If your BMI is greater than 25, we strongly recommend a referral to a weight management program. Please speak to us or your family physician about available programs. AVOID NICOTINE IN ALL FORMS This includes all tobacco products, whether chewed, smoked, vaped, or rubbed on the skin. Smoking cessation programs, which can make use of tobacco substitutes, medications to suppress cravings and behavior management, are available. Please contact your family physician about programs in your area. Referring Provider: BISHOP ANDINO [[id number]] Allergies As of Date: 12/20/2017 (No Known Allergies) Date Reviewed: 12/20/2017 Reviewed by: Deepali Ta RN - Fully Assessed Reason for Visit: Recheck [92] Primary Visit Diagnosis:ASHD (arteriosclerotic heart disease) [I25.10] Other Visit Diagnoses:Essential hypertension [I10] Atherosclerosis of lummi artery of both lower extremities with intermittent claudication (HCC) [I70.213] Order(s):PVR LEG W/EXC [facility] [[id number]] Order #: [id number] FUTURE BASIC METABOLIC PNL [SQBMP] Order #: [id number] FUTURE CK CREATINE KINASE [SQCK] Order #: [id number] FUTURE ALT/SGPT [SQALT] Order #: [id number] FUTURE LIPID PANEL, NONFASTING [SQLIPNF] Order #: [id number] FUTURE Prescriptions as of 12/20/2017 Sig: GABAPENTIN 300 MG CAPSULE TAKE 1 CAPSULE BY MOUTH THREE* NIFEDIPINE ER 90 MG TABLET,EX* Take 1 tablet by mouth once d* VENTOLIN HFA 90 MCG/ACTUATION* Inhale 2 Puffs as instructed * OMEPRAZOLE 20 MG CAPSULE,MINAL* TAKE 1 TABLET EVERY DAY BREO ELLIPTA 200 MCG-25 MCG/D* Inhale 1 Inhalation as instru* ISOSORBIDE MONONITRATE ER 30 * Take 1 tablet by mouth once d* ATORVASTATIN 80 MG TABLET Take 0.5 tablets by mouth evelyn* FLUOXETINE 20 MG CAPSULE TAKE 1 CAPSULE EVERY DAY NITROGLYCERIN 0.4 MG SUBLINGU* Dissolve 1 tablet under the t* ASPIRIN 81 MG TABLET,DELAYED * Take 1 tablet by mouth once d* Problem List As Of Date 12/20/2017 Noted Resolved CAD (coronary artery disease) [I25.10] INVALID FOR* Hypertension [I10] INVALID FOR* Anxiety [F41.9] INVALID FOR* Pain in joint, upper arm [M25.529] INVALID FOR* Raynaud phenomenon [I73.00] More... Polyneuropathy (HCC) [G62.9] INVALID FOR* Tobacco use [Z72.0] INVALID FOR* ETOH abuse [F10.10] INVALID FOR* Other instructions from your clinician: LIFESTYLE CHANGE A healthy lifestyle is the most important component of your overall treatment plan. Please give serious thought to the following areas and commit to making assisted changes. EAT A WHOLE FOOD, PLANT BASED DIET The nutrition your body gets is more important than the medicine you take. What matters most is the overall way you eat. We encourage you to minimize the use of animal products (which include dairy and all meats except fatty fish) and use whole, unprocessed plant foods to provide your protein, vitamins and other nutrients. We have a lot of information to share with you on this topic. This is not a diet. It is a way of life that you will keep with you. EXERCISE REGULARLY It is not important to spend hours in the gym, lifting weights and perspiring heavily. A total of 2-3 hours per week of aerobic (causing you to be moderately short of breath) exercise is sufficient to improve your health. Talk to us before you begin a new exercise program, if you have heart disease or experience shortness of breath or chest pain. REDUCE STRESS Chronic emotional and physical stress leads to disease. Ways of reducing stress include meditation, visualization, prayer, yoga and other forms of relaxation therapy. Consistency is the bolaños. Find a technique that works for you and do it every day. CULTIVATE RELATIONSHIPS Loneliness and isolation have a major negative impact on health. Seek out others who can love, care for and nurture you. Avoid hurtful relationships. MAINTAIN IDEAL BODY WEIGHT The best way to do this is to do all the things above. Our bodies naturally find the right weight if we keep moving and feed ourselves the right food. If your BMI is greater than 25, we strongly recommend a referral to a weight management program. Please speak to us or your family physician about available programs. AVOID NICOTINE IN ALL FORMS This includes all tobacco products, whether chewed, smoked, vaped, or rubbed on the skin. Smoking cessation programs, which can make use of tobacco substitutes, medications to suppress cravings and behavior management, are available. Please contact your family physician about programs in your area. Encounter Status:Closed by BISHOP ADNINO MD on 12/20/17 PROGRESS Observed: 12/12/2017 Status: COMPLETED Source: [place] 2:49 PM [facility] REPOSITORY [facility] ID: [id number] Author: Norma Jordan (Pa) Service: (none) Author Type: Physician Supervisor Molding Type: Progress Notes Filed: 12/13/2017 10:21 AM Note Text: HISTORY AND PHYSICAL Gracy Ponce 1955 REFERRING PHYSICIAN: Kenn Hunter MD CHIEF COMPLAINT: Consult (colonoscopy) HPI: The patient is a 62 year old male referred for endoscopy. Gracy notes no history of colon complaints. He denies any change in bowel habits, weight changes, blood in stools, black tarry stools or abdominal pain. Denies any known family history of colon cancer. He has never had a screening colonoscopy. The patient notes symptomatic acid reflux in the morning with heartburn and coughing, x years. He has smoked cigars for many years, currently 1/2 pack per day with no interest in quitting. He notes also that he has been drinking since I was 13. States he used to drink 4-5 cans of beer daily but recently has cut back on his drinking significantly. He states he has only had two drinks in the last two weeks. He has never had upper endoscopy. The patient is being seen by me today at the request of Dr. Hunter for my opinion and advice regarding screening colonoscopy. Patient's past medical history is significant for coronary artery disease, hypertension, past [place] and CABG x 4, stented coronary artery, COPD. He follows with Dr. Hunter for his chronic medical conditions and with Dr. Andino in cardiology. He states he does follow with a fuel verification technician as well but is unsure who this is. PAST MEDICAL HISTORY Diagnosis Date - CAD (coronary artery disease) 2008 - Hypertension - WY (myocardial infarction) (HCC) 2008 - Raynaud phenomenon decreased beta sascha and added procardia to help - S/P CABG x 4 2008 - Stented coronary artery 2009 PAST SURGICAL HISTORY Procedure Laterality Date - APPENDECTOMY - CABG (4) VEIN GRAFTS AND ARTERIAL GRAFT(S) 2009 [facility] - CATARACT EXTRACTION HX Bilateral - PAST SURGICAL HISTORY OF Right release trigger finger - REMOVAL OF TONSILS; AGE 12 OR OVER Current Outpatient Prescriptions: gabapentin (NEURONTIN) 300 mg capsule TAKE 1 CAPSULE BY MOUTH THREE TIMES DAILY NIFEdipine ER (PROCARDIA XL) 90 mg 24 hr tablet Take 1 tablet by mouth once daily. VENTOLIN HFA 90 mcg/actuation inhaler Inhale 2 Puffs as instructed every 4 hours as needed. omeprazole (PRILOSEC) 20 mg capsule TAKE 1 TABLET EVERY DAY BREO ELLIPTA 200-25 mcg/dose inhaler Inhale 1 Inhalation as instructed once daily. DO NOT CLICK OPEN UNTIL READY FOR DOSE isosorbide mononitrate ER (IMDUR) 30 mg 24 hr tablet Take 1 tablet by mouth once daily. FLUoxetine (PROZAC) 20 mg capsule TAKE 1 CAPSULE EVERY DAY nitroglycerin sublingual (NITROQUICK) 0.4 mg SL tablet Dissolve 1 tablet under the tongue as needed. for chest pain, if no pain relief within 5 minutes contact 911 aspirin, enteric coated (ECOTRIN LOW STRENGTH) 81 mg EC tablet Take 1 tablet by mouth once daily. atorvastatin (LIPITOR) 80 mg tablet Take 0.5 tablets by mouth daily at bedtime. No current facility-administered medications for this visit. ALLERGIES: Patient has no known allergies. PERSONAL HISTORY: Social History Marital status: Single Spouse name: Years of education: Number of children: Social History Main Topics Smoking status: Current Every Day Smoker Packs/day: 0.50 Years: 40.00 Types: Cigarettes Smokeless tobacco: Never Used Alcohol use: Yes Comment: drinks about a couple beer a day Drug use: No FAMILY HISTORY: FAMILY HISTORY Problem Relation Age of Onset - Cancer Father unkown primary-started in his axilla. - other (murdered) Mother - Colon Cancer Brother - Diabetes Brother - Diabetes Sister - Diabetes Brother - Diabetes Brother REVIEW OF SYMPTOMS: The review of systems data was entered by the nurse and reviewed by wa Nursing Notes: Amirah Griffin RN 12/12/2017 2:32 PM Signed REVIEW OF SYSTEMS: General: The patient denies fatigue, denies weight loss, denies weight gain, notes feeling hot, and denies feelings of cold. Eyes: The patient denies glaucoma, notes eye injury/surgery, wears glasses or contacts. Ear/Nose/Throat: The patient denies allergies, denies hayfever, denies ear infections, and denies bloody noses. Cardiovascular: The patient denies chest pain, notes heart disease, notes high blood pressure,notes cardiac stent, notes prior heart attack, denies irregular heart beat, notes high cholesterol, notes poor circulation, denies heart failure, other cardiac issues, notes claudication, denies cold feet, denies peripheral arterial stent. Respiratory: The patient denies tuberculosis, denies pneumonia, notes frequent cough, denies pulmonary embolism, notes shortness of breath, and denies coughing up blood. Gastrointestinal: The patient denies difficulty swallowing, notes acid reflux, denies ulcers, denies vomiting, denies jaundice/hepatitis, denies gallbladder problems, denies black or tarry stools, denies hemorrhoids, denies bleeding from rectum, denies diverticulitis, denies constipation, denies diarrhea, denies loss of stool control, and denies hernias. Kidney/Bladder: The patient denies kidney stones, denies urine infections, and denies bloody urine. Skin: The patient denies a history of skin cancer, denies bleeding/changing moles, and denies a history of skin rash. Neurologic: The patient denies a history of epilepsy/convulsions, denies headaches, denies head/spinal injuries, and denies stroke/TIA. Psychiatric: The patient denies psychiatric medications, denies depression, and denies voices, denies substance abuse. Endocrine: The patient denies thyroid disorders, denies diabetes, and denies hormonal problems. Hematologic: The patient denies a history of bruising, denies bleeding, and denies anemia, denies blood clots. Infections: The patient denies a history of measles and mumps, denies rheumatic fever, and denies sexually transmitted diseases. Musculoskeletal: The patient denies back pain/injury, denies back problems, denies sciatica, NOTES knee/foot trouble, denies arthritis, or denies gout. When was patient's last Mammogram screening? N/A Last Colonoscopy: no Amirah Griffin RN I have confirmed and edited as necessary, the PFSH and ROS obtained by others. PHYSICAL EXAMINATION: General: The patient is 62 year old male, thin in appearance, well hydrated in no acute distress. The patient is oriented to time, place, and person. VITALS: Blood pressure 128/64, pulse 76, weight 65.7 kg (144 lb 12.8 oz). Body mass index is 19.64 kg/m?. HEENT: Normal cephalic, ataumatic, pupils are equally round, sclera are anicteric, mucous membranes are moist, oropharynx is clear. Neck has no masses, asymmetry or lymphadenopathy. Respiratory: Clear to auscultation and percussion. Normal respiratory excursion and pattern. Cardiac: Examination is regular rate and rhythm. Abdominal exam: Soft, nontender, with no palpable masses. No hepatosplenomegaly. No palpable hernias. Rectal exam: exam deferred Extremities: no clubbing, cyanosis or edema. No adenopathy. Other: LABORATORY VALUES: As Noted RADIOLOGIC STUDIES: As Noted Assessment IMPRESSION: encounter for screening colonoscopy. GERD and long-term history of tobacco and alcohol use, recommend EGD in addition to colonoscopy PLAN: We will plan for upper and lower endoscopy with MAC. We discussed the risks and benefits of the planned endoscopy. I have informed the patient that complications can occur including failure to complete the endoscopy and perforation. The patient had the opportunity to ask questions concerning the planned endoscopy. My staff has also explained the procedure to the patient in understandable terms and has given the patient printed material concerning the procedure. The patient freely consents to surgery. I plan to use golytely bowel preparation for endoscopy I plan for monitored anesthetic care. Diagnoses: (Z12.11) Encounter for screening for malignant neoplasm of colon (primary encounter diagnosis) (I25.119) Coronary artery disease involving lummi heart with angina pectoris, unspecified vessel or lesion type (HCC) (F10.10) ETOH abuse (K21.9) Gastroesophageal reflux disease, esophagitis presence not specified My findings have been communicated to Dr. Hunter via shared medical record. This note will be forwarded to Dr. Kenn Hunter MD. Return to Clinic: The patient is instructed to follow-up with me 1 week post operatively. I spent 30 minutes in the visit, with more than 50% of the total sfrt-ii-tjjq time of the visit in counseling / coordination of care. MALIK Tillman Observed: 12/12/2017 Status: COMPLETED Source: [place] 2:30 PM [facility] REPOSITORY Office Visit (GENSWS) GRACY PONCE ([id number]) 1955 M Date Time Provider Department 12/12/17 2:30 PM NORMA JORDAN (PA) During your visit today, we recorded the following information about you: Pulse Blood pressure Weight 76/minute 128/64 65.7 kg Amirah Griffin RN 12/12/2017 2:32 PM Signed REVIEW OF SYSTEMS: General: The patient denies fatigue, denies weight loss, denies weight gain, notes feeling hot, and denies feelings of cold. Eyes: The patient denies glaucoma, notes eye injury/surgery, wears glasses or contacts. Ear/Nose/Throat: The patient denies allergies, denies hayfever, denies ear infections, and denies bloody noses. Cardiovascular: The patient denies chest pain, notes heart disease, notes high blood pressure,notes cardiac stent, notes prior heart attack, denies irregular heart beat, notes high cholesterol, notes poor circulation, denies heart failure, other cardiac issues, notes claudication, denies cold feet, denies peripheral arterial stent. Respiratory: The patient denies tuberculosis, denies pneumonia, notes frequent cough, denies pulmonary embolism, notes shortness of breath, and denies coughing up blood. Gastrointestinal: The patient denies difficulty swallowing, notes acid reflux, denies ulcers, denies vomiting, denies jaundice/hepatitis, denies gallbladder problems, denies black or tarry stools, denies hemorrhoids, denies bleeding from rectum, denies diverticulitis, denies constipation, denies diarrhea, denies loss of stool control, and denies hernias. Kidney/Bladder: The patient denies kidney stones, denies urine infections, and denies bloody urine. Skin: The patient denies a history of skin cancer, denies bleeding/changing moles, and denies a history of skin rash. Neurologic: The patient denies a history of epilepsy/convulsions, denies headaches, denies head/spinal injuries, and denies stroke/TIA. Psychiatric: The patient denies psychiatric medications, denies depression, and denies voices, denies substance abuse. Endocrine: The patient denies thyroid disorders, denies diabetes, and denies hormonal problems. Hematologic: The patient denies a history of bruising, denies bleeding, and denies anemia, denies blood clots. Infections: The patient denies a history of measles and mumps, denies rheumatic fever, and denies sexually transmitted diseases. Musculoskeletal: The patient denies back pain/injury, denies back problems, denies sciatica, NOTES knee/foot trouble, denies arthritis, or denies gout. When was patient's last Mammogram screening? N/A Last Colonoscopy: no Amirah Jordan PA-C 12/13/2017 10:21 AM Signed HISTORY AND PHYSICAL [place] Jarod Ponce 1955 REFERRING PHYSICIAN: Kenn Hunter MD CHIEF COMPLAINT: Consult (colonoscopy) HPI: The patient is a 62 year old male referred for endoscopy. Gracy notes no history of colon complaints. He denies any change in bowel habits, weight changes, blood in stools, black tarry stools or abdominal pain. Denies any known family history of colon cancer. He has never had a screening colonoscopy. The patient notes symptomatic acid reflux in the morning with heartburn and coughing, x years. He has smoked cigars for many years, currently 1/2 pack per day with no interest in quitting. He notes also that he has been drinking since I was 13. States he used to drink 4-5 cans of beer daily but recently has cut back on his drinking significantly. He states he has only had two drinks in the last two weeks. He has never had upper endoscopy. The patient is being seen by me today at the request of Dr. Hunter for my opinion and advice regarding screening colonoscopy. Patient's past medical history is significant for coronary artery disease, hypertension, past [place] and CABG x 4, stented coronary artery, COPD. He follows with Dr. Hunter for his chronic medical conditions and with Dr. Andino in cardiology. He states he does follow with a fuel verification technician as well but is unsure who this is. PAST MEDICAL HISTORY Diagnosis Date - CAD (coronary artery disease) 2008 - Hypertension - [place] (myocardial infarction) (HCC) 2008 - Raynaud phenomenon decreased beta sascha and added procardia to help - S/P CABG x 4 2008 - Stented coronary artery 2009 PAST SURGICAL HISTORY Procedure Laterality Date - APPENDECTOMY - CABG (4) VEIN GRAFTS AND ARTERIAL GRAFT(S) 2008 [facility] - CATARACT EXTRACTION HX Bilateral - PAST SURGICAL HISTORY OF Right release trigger finger - REMOVAL OF TONSILS; AGE 12 OR OVER Current Outpatient Prescriptions: gabapentin (NEURONTIN) 300 mg capsule TAKE 1 CAPSULE BY MOUTH THREE TIMES DAILY NIFEdipine ER (PROCARDIA XL) 90 mg 24 hr tablet Take 1 tablet by mouth once daily. VENTOLIN HFA 90 mcg/actuation inhaler Inhale 2 Puffs as instructed every 4 hours as needed. omeprazole (PRILOSEC) 20 mg capsule TAKE 1 TABLET EVERY DAY BREO ELLIPTA 200-25 mcg/dose inhaler Inhale 1 Inhalation as instructed once daily. DO NOT CLICK OPEN UNTIL READY FOR DOSE isosorbide mononitrate ER (IMDUR) 30 mg 24 hr tablet Take 1 tablet by mouth once daily. FLUoxetine (PROZAC) 20 mg capsule TAKE 1 CAPSULE EVERY DAY nitroglycerin sublingual (NITROQUICK) 0.4 mg SL tablet Dissolve 1 tablet under the tongue as needed. for chest pain, if no pain relief within 5 minutes contact 911 aspirin, enteric coated (ECOTRIN LOW STRENGTH) 81 mg EC tablet Take 1 tablet by mouth once daily. atorvastatin (LIPITOR) 80 mg tablet Take 0.5 tablets by mouth daily at bedtime. No current facility-administered medications for this visit. ALLERGIES: Patient has no known allergies. PERSONAL HISTORY: Social History Marital status: Single Spouse name: Years of education: Number of children: Social History Main Topics Smoking status: Current Every Day Smoker Packs/day: 0.50 Years: 40.00 Types: Cigarettes Smokeless tobacco: Never Used Alcohol use: Yes Comment: drinks about a couple beer a day Drug use: No FAMILY HISTORY: FAMILY HISTORY Problem Relation Age of Onset - Cancer Father unkown primary-started in his axilla. - other (murdered) Mother - Colon Cancer Brother - Diabetes Brother - Diabetes Sister - Diabetes Brother - Diabetes Brother REVIEW OF SYMPTOMS: The review of systems data was entered by the nurse and reviewed by wa Nursing Notes: Amirah Griffin RN 12/12/2017 2:32 PM Signed REVIEW OF SYSTEMS: General: The patient denies fatigue, denies weight loss, denies weight gain, notes feeling hot, and denies feelings of cold. Eyes: The patient denies glaucoma, notes eye injury/surgery, wears glasses or contacts. Ear/Nose/Throat: The patient denies allergies, denies hayfever, denies ear infections, and denies bloody noses. Cardiovascular: The patient denies chest pain, notes heart disease, notes high blood pressure,notes cardiac stent, notes prior heart attack, denies irregular heart beat, notes high cholesterol, notes poor circulation, denies heart failure, other cardiac issues, notes claudication, denies cold feet, denies peripheral arterial stent. Respiratory: The patient denies tuberculosis, denies pneumonia, notes frequent cough, denies pulmonary embolism, notes shortness of breath, and denies coughing up blood. Gastrointestinal: The patient denies difficulty swallowing, notes acid reflux, denies ulcers, denies vomiting, denies jaundice/hepatitis, denies gallbladder problems, denies black or tarry stools, denies hemorrhoids, denies bleeding from rectum, denies diverticulitis, denies constipation, denies diarrhea, denies loss of stool control, and denies hernias. Kidney/Bladder: The patient denies kidney stones, denies urine infections, and denies bloody urine. Skin: The patient denies a history of skin cancer, denies bleeding/changing moles, and denies a history of skin rash. Neurologic: The patient denies a history of epilepsy/convulsions, denies headaches, denies head/spinal injuries, and denies stroke/TIA. Psychiatric: The patient denies psychiatric medications, denies depression, and denies voices, denies substance abuse. Endocrine: The patient denies thyroid disorders, denies diabetes, and denies hormonal problems. Hematologic: The patient denies a history of bruising, denies bleeding, and denies anemia, denies blood clots. Infections: The patient denies a history of measles and mumps, denies rheumatic fever, and denies sexually transmitted diseases. Musculoskeletal: The patient denies back pain/injury, denies back problems, denies sciatica, NOTES knee/foot trouble, denies arthritis, or denies gout. When was patient's last Mammogram screening? N/A Last Colonoscopy: no Amirah Griffin RN I have confirmed and edited as necessary, the PFSH and ROS obtained by others. PHYSICAL EXAMINATION: General: The patient is 62 year old male, thin in appearance, well hydrated in no acute distress. The patient is oriented to time, place, and person. VITALS: Blood pressure 128/64, pulse 76, weight 65.7 kg (144 lb 12.8 oz). Body mass index is 19.64 kg/m?. HEENT: Normal cephalic, ataumatic, pupils are equally round, sclera are anicteric, mucous membranes are moist, oropharynx is clear. Neck has no masses, asymmetry or lymphadenopathy. Respiratory: Clear to auscultation and percussion. Normal respiratory excursion and pattern. Cardiac: Examination is regular rate and rhythm. Abdominal exam: Soft, nontender, with no palpable masses. No hepatosplenomegaly. No palpable hernias. Rectal exam: exam deferred Extremities: no clubbing, cyanosis or edema. No adenopathy. Other: LABORATORY VALUES: As Noted RADIOLOGIC STUDIES: As Noted Assessment IMPRESSION: encounter for screening colonoscopy. GERD and long-term history of tobacco and alcohol use, recommend EGD in addition to colonoscopy PLAN: We will plan for upper and lower endoscopy with MAC. We discussed the risks and benefits of the planned endoscopy. I have informed the patient that complications can occur including failure to complete the endoscopy and perforation. The patient had the opportunity to ask questions concerning the planned endoscopy. My staff has also explained the procedure to the patient in understandable terms and has given the patient printed material concerning the procedure. The patient freely consents to surgery. I plan to use golytely bowel preparation for endoscopy I plan for monitored anesthetic care. Diagnoses: (Z12.11) Encounter for screening for malignant neoplasm of colon (primary encounter diagnosis) (I25.119) Coronary artery disease involving lummi heart with angina pectoris, unspecified vessel or lesion type (HCC) (F10.10) ETOH abuse (K21.9) Gastroesophageal reflux disease, esophagitis presence not specified My findings have been communicated to Dr. Hunter via shared medical record. This note will be forwarded to Dr. Kenn Hunter MD. Return to Clinic: The patient is instructed to follow-up with me 1 week post operatively. I spent 30 minutes in the visit, with more than 50% of the total foay-jv-wetp time of the visit in counseling / coordination of care. Norma Jordan PA-C Referring Provider: KENN HUNTER [[id number]] Allergies As of Date: 12/12/2017 (No Known Allergies) Date Reviewed: 12/12/2017 Reviewed by: Norma (Jere) - Fully Assessed Reason for Visit: Consult [173] Cmt: colonoscopy Primary Visit Diagnosis:Encounter for screening for malignant neoplasm of colon [Z12.11] Other Visit Diagnoses:Coronary artery disease involving lummi heart with angina pectoris, unspecified vessel or lesion type (HCC) [I25.119] ETOH abuse [F10.10] Gastroesophageal reflux disease, esophagitis presence not specified [K21.9] Order(s):[] peg 3350-Electrolytes (GOLYTELY) 236-22.74-6.74 -5.86 gram suspensionTake 4,000 mL by mouth one time only for 1 dose.Disp: 1 BottleRfl: 0 EGD [[id number]] Order #: [id number] FUTURE COLONOSCOPY SCRN NOT HIGH RISK [[id number]] Order #: [id number] FUTURE Prescriptions as of 12/12/2017 Sig: GABAPENTIN 300 MG CAPSULE TAKE 1 CAPSULE BY MOUTH THREE* NIFEDIPINE ER 90 MG TABLET,EX* Take 1 tablet by mouth once d* VENTOLIN HFA 90 MCG/ACTUATION* Inhale 2 Puffs as instructed * OMEPRAZOLE 20 MG CAPSULE,MINAL* TAKE 1 TABLET EVERY DAY BREO ELLIPTA 200 MCG-25 MCG/D* Inhale 1 Inhalation as instru* ISOSORBIDE MONONITRATE ER 30 * Take 1 tablet by mouth once d* FLUOXETINE 20 MG CAPSULE TAKE 1 CAPSULE EVERY DAY NITROGLYCERIN 0.4 MG SUBLINGU* Dissolve 1 tablet under the t* ASPIRIN 81 MG TABLET,DELAYED * Take 1 tablet by mouth once d* PEG 3350-ELECTROLYTES 236 GRA* Take 4,000 mL by mouth one ti* ATORVASTATIN 80 MG TABLET Take 0.5 tablets by mouth evelyn* Problem List As Of Date 12/12/2017 Noted Resolved CAD (coronary artery disease) [I25.10] INVALID FOR* Hypertension [I10] INVALID FOR* Anxiety [F41.9] INVALID FOR* Pain in joint, upper arm [M25.529] INVALID FOR* Raynaud phenomenon [I73.00] More... Polyneuropathy (HCC) [G62.9] INVALID FOR* Tobacco use [Z72.0] INVALID FOR* ETOH abuse [F10.10] INVALID FOR* Visit Notes: >> Amirah Griffin RN Mon Dec 12, 2017 2:31 PM Status: Signed REVIEW OF SYSTEMS: General: The patient denies fatigue, denies weight loss, denies weight gain, notes feeling hot, and denies feelings of cold. Eyes: The patient denies glaucoma, notes eye injury/surgery, wears glasses or contacts. Ear/Nose/Throat: The patient denies allergies, denies hayfever, denies ear infections, and denies bloody noses. Cardiovascular: The patient denies chest pain, notes heart disease, notes high blood pressure,notes cardiac stent, notes prior heart attack, denies irregular heart beat, notes high cholesterol, notes poor circulation, denies heart failure, other cardiac issues, notes claudication, denies cold feet, denies peripheral arterial stent. Respiratory: The patient denies tuberculosis, denies pneumonia, notes frequent cough, denies pulmonary embolism, notes shortness of breath, and denies coughing up blood. Gastrointestinal: The patient denies difficulty swallowing, notes acid reflux, denies ulcers, denies vomiting, denies jaundice/hepatitis, denies gallbladder problems, denies black or tarry stools, denies hemorrhoids, denies bleeding from rectum, denies diverticulitis, denies constipation, denies diarrhea, denies loss of stool control, and denies hernias. Kidney/Bladder: The patient denies kidney stones, denies urine infections, and denies bloody urine. Skin: The patient denies a history of skin cancer, denies bleeding/changing moles, and denies a history of skin rash. Neurologic: The patient denies a history of epilepsy/convulsions, denies headaches, denies head/spinal injuries, and denies stroke/TIA. Psychiatric: The patient denies psychiatric medications, denies depression, and denies voices, denies substance abuse. Endocrine: The patient denies thyroid disorders, denies diabetes, and denies hormonal problems. Hematologic: The patient denies a history of bruising, denies bleeding, and denies anemia, denies blood clots. Infections: The patient denies a history of measles and mumps, denies rheumatic fever, and denies sexually transmitted diseases. Musculoskeletal: The patient denies back pain/injury, denies back problems, denies sciatica, NOTES knee/foot trouble, denies arthritis, or denies gout. When was patient's last Mammogram screening? N/A Last Colonoscopy: no Amirah Griffin RN Prescriptions ordered this encounter Disp Refills Start End PEG 3350-ELECTROLYTES 236 GRAM-22.74* 1 Jose* 0 12/12/2017 12/12/2017 Route: ORAL Sig: Take 4,000 mL by mouth one time only for 1 dose. Encounter Status:Closed by NORMA JORDAN PA-C on 12/13/17 PROGRESS Observed: 09/14/2017 Status: COMPLETED Source: [place] 2:02 PM [facility] REPOSITORY HNO ID: [id number] Author: Kenn Hunter Service: (none) Author Type: Physician Type: Progress Notes Filed: 09/14/2017 3:19 PM Note Text: 62 year old male with c/o 1. Fell September 07 while drinking. Thinks he passed out for a few minutes. Was driven to ER by ex . In ER only long enough to have CT, devon, and tetanus shot. CT head- Negative for intracranial hemorrhage. Stayed with daughter for next two days. Lives by himself. Got dizzy while walking on Tuesday (09/12) and ran into a corner wall in his house- superficial scrape on forehead. Notes feeling off balance since he fell. Has been taking 4 tylenol 500mg for pain every 2 hours for headache since he left the hospital. Lost weight due to not being able to eat. Pain is on left parietal region around devon. 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 2. HTN- taking procardia daily. 152/93 in ER. HISTORIES FAMILY HISTORY Problem Relation Age of Onset - Cancer Father unkown primary-started in his axilla. - murdered [OTHER] Mother - Colon Cancer Brother - Diabetes Brother - Diabetes Sister - Diabetes Brother - Diabetes Brother PAST MEDICAL HISTORY Diagnosis Date - CAD (coronary artery disease) 2008 - Hypertension - [place] (myocardial infarction) (HCC) 2009 - Raynaud phenomenon decreased beta sascha and added procardia to help - S/P CABG x 4 2008 - Stented coronary artery 2008 PAST SURGICAL HISTORY Procedure Laterality Date - APPENDECTOMY - CABG (4) VEIN GRAFTS AND ARTERIAL GRAFT(S) 2009 [facility] - REMOVAL OF TONSILS; AGE 12 OR OVER Social History Marital status: Single Spouse name: Years of education: Number of children: Social History Main Topics Smoking status: Current Every Day Smoker Packs/day: 0.50 Years: 40.00 Types: Cigarettes Smokeless tobacco: Never Used Alcohol use: Yes Comment: drinks about a couple beer a day Drug use: No ACTIVE PROBLEM LIST Cad (Coronary Artery Disease) Hypertension Anxiety Pain in Joint, Upper Arm Raynaud Phenomenon Polyneuropathy (Hcc) Tobacco Use Etoh Abuse Current Outpatient Prescriptions: gabapentin (NEURONTIN) 300 mg capsule TAKE 1 CAPSULE BY MOUTH THREE TIMES DAILY Disp: 270 capsule Rfl: 1 NIFEdipine ER (PROCARDIA XL) 90 mg 24 hr tablet Take 1 tablet by mouth once daily. Disp: 90 tablet Rfl: 1 VENTOLIN HFA 90 mcg/actuation inhaler Inhale 2 Puffs as instructed every 4 hours as needed. Disp: 18 g Rfl: 5 omeprazole (PRILOSEC) 20 mg capsule TAKE 1 TABLET EVERY DAY Disp: 90 capsule Rfl: 3 BREO ELLIPTA 200-25 mcg/dose inhaler Inhale 1 Inhalation as instructed once daily. DO NOT CLICK OPEN UNTIL READY FOR DOSE Disp: 3 Each Rfl: 3 isosorbide mononitrate ER (IMDUR) 30 mg 24 hr tablet Take 1 tablet by mouth once daily. Disp: 90 tablet Rfl: 3 atorvastatin (LIPITOR) 80 mg tablet Take 0.5 tablets by mouth daily at bedtime. Disp: 90 tablet Rfl: 3 FLUoxetine (PROZAC) 20 mg capsule TAKE 1 CAPSULE EVERY DAY Disp: 90 capsule Rfl: 3 aspirin, enteric coated (ECOTRIN LOW STRENGTH) 81 mg EC tablet Take 1 tablet by mouth once daily. Disp: Rfl: 0 nitroglycerin sublingual (NITROQUICK) 0.4 mg SL tablet Dissolve 1 tablet under the tongue as needed. for chest pain, if no pain relief within 5 minutes contact 911 Disp: 25 tablet Rfl: 1 No current facility-administered medications for this visit. FECAL OCCULT BLOOD due on 2006 EXAM: BP 142/92 Pulse 88 Resp 16 Wt 63 kg (139 lb) BMI 18.85 kg/m? Pleasant adult male in no acute distress. Alert and oriented all spheres. Normal affect and cognition. Speech normal. No deficits to learning or comprehension. Skin warm, dry, pink to lips and nailbeds. Normal turgor. Respirations regular and unlabored. Extrem: no clubbing, cyanosis, edema. Extremities are warm and pink with prompt capillary refill. Neuro: CN 2-12 grossly intact. Motor full upper and lower symmetric. Sensory intact distally to light touch. DTR's 0-1/4+ symmetric biceps, triceps, brachioradialis, knee jerk, Achilles. Rhomberg negative. Unable to heel or toe walk. Gait unsteady when raising from chair. 62 year old male here for staple removal. Staple line well approximated. No redness, swelling, pus or other signs of infection. Wound edges well approximated. 3 devon removed without gapping. ASSESSMENT/PLAN: 1. Laceration of scalp, subsequent encounter - ICD9: V58.89, 873.0, ICD10: S01.01XD (primary diagnosis) - Healed laceration; devon removed - Educated patient to keep wound dry and clean for next 24 hours - Return to office for signs of infection, wound gaping, or increased drainage 2. Concussion with loss of consciousness, subsequent encounter - ICD9: V58.89, 850.5, ICD10: S06.0X9D - Educated patient on post concussion headache management - Instructed to follow OTC medication label instructions when taking - Re-evaluate in 1 week 3. Essential hypertension - ICD9: 401.9, ICD10: I10 - suboptimal control - Return for recheck in 1 week - Continue current medication(s) - Recommend home blood pressure monitoring, to bring results in on next visit - Reviewed risks of HTN and principles of treatment - Goal of BP <130/80 4. ETOH abuse - ICD9: 305.00, ICD10: F10.10 - Educated on assisted effects of alcohol abuse 5. Coronary artery disease involving lummi heart with angina pectoris, unspecified vessel or lesion type (HCC) - ICD9: 414.01, 413.9, ICD10: I25.119 - Continue medications as prescribed Tal KILPATRICK Student Patient seen and examined with student. Reviewed hospital records. Incision well healed. heent negative Neuro intact. Discussed head injury instructions. encouraged abstainance of etoh. Patient declines. Follow up in one week. Consider MRI and labs if symptoms continue. Dicussed limiting tylenol Red flags for re-assessment reviewed with patient in detail. Kenn Hunter MD CNOV Observed: 09/14/2017 Status: COMPLETED Source: [place] 1:20 PM [facility] REPOSITORY Office Visit (FAMPWS) GRACY PONCE ([id number]) 1955 M Date Time Provider Department 09/14/17 1:20 PM KENN HUNTER FAMPWS During your visit today, we recorded the following information about you: Pulse Respiration Blood pressure Weight 88/minute 16/minute 142/92 63 kg Hemalatha Romero THAO 09/14/2017 1:51 PM Addendum HOSPITAL/ER FOLLOW UP: Reason for visit: fall with scalp laceration Which facility: [facility] Date of visit: 09/07/17 Diagnosis: concussion with loss of consciousness, 1.3 cm scalp laceration, alcohol intoxication Testing done: CT brain without contrast Treatment given: 3 devon right side of head Current symptoms: dizziness, headaches Using Tylenol 500 mg tablet 4 at a time maybe 6 times per day. States that only helps with pain from headaches for a couple of hours at most. Denies alcohol use since this incident. Dizziness has caused him to walk into a wall he believes was Tuesday night this week? Has area on forehead with bruise/scratch from this. Kenn Hutner MD 09/14/2017 3:19 PM Signed 62 year old male with c/o 1. Fell September 07 while drinking. Thinks he passed out for a few minutes. Was driven to ER by ex . In ER only long enough to have CT, devon, and tetanus shot. CT head- Negative for intracranial hemorrhage. Stayed with daughter for next two days. Lives by himself. Got dizzy while walking on Tuesday (09/12) and ran into a corner wall in his house- superficial scrape on forehead. Notes feeling off balance since he fell. Has been taking 4 tylenol 500mg for pain every 2 hours for headache since he left the hospital. Lost weight due to not being able to eat. Pain is on left parietal region around devon. 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 2. HTN- taking procardia daily. 152/93 in ER. HISTORIES FAMILY HISTORY Problem Relation Age of Onset - Cancer Father unkown primary-started in his axilla. - murdered [OTHER] Mother - Colon Cancer Brother - Diabetes Brother - Diabetes Sister - Diabetes Brother - Diabetes Brother PAST MEDICAL HISTORY Diagnosis Date - CAD (coronary artery disease) 2008 - Hypertension - [place] (myocardial infarction) (HCC) 2008 - Raynaud phenomenon decreased beta sascha and added procardia to help - S/P CABG x 4 2008 - Stented coronary artery 2008 PAST SURGICAL HISTORY Procedure Laterality Date - APPENDECTOMY - CABG (4) VEIN GRAFTS AND ARTERIAL GRAFT(S) 2008 [facility] - REMOVAL OF TONSILS; AGE 12 OR OVER Social History Marital status: Single Spouse name: Years of education: Number of children: Social History Main Topics Smoking status: Current Every Day Smoker Packs/day: 0.50 Years: 40.00 Types: Cigarettes Smokeless tobacco: Never Used Alcohol use: Yes Comment: drinks about a couple beer a day Drug use: No ACTIVE PROBLEM LIST Cad (Coronary Artery Disease) Hypertension Anxiety Pain in Joint, Upper Arm Raynaud Phenomenon Polyneuropathy (Hcc) Tobacco Use Etoh Abuse Current Outpatient Prescriptions: gabapentin (NEURONTIN) 300 mg capsule TAKE 1 CAPSULE BY MOUTH THREE TIMES DAILY Disp: 270 capsule Rfl: 1 NIFEdipine ER (PROCARDIA XL) 90 mg 24 hr tablet Take 1 tablet by mouth once daily. Disp: 90 tablet Rfl: 1 VENTOLIN HFA 90 mcg/actuation inhaler Inhale 2 Puffs as instructed every 4 hours as needed. Disp: 18 g Rfl: 5 omeprazole (PRILOSEC) 20 mg capsule TAKE 1 TABLET EVERY DAY Disp: 90 capsule Rfl: 3 BREO ELLIPTA 200-25 mcg/dose inhaler Inhale 1 Inhalation as instructed once daily. DO NOT CLICK OPEN UNTIL READY FOR DOSE Disp: 3 Each Rfl: 3 isosorbide mononitrate ER (IMDUR) 30 mg 24 hr tablet Take 1 tablet by mouth once daily. Disp: 90 tablet Rfl: 3 atorvastatin (LIPITOR) 80 mg tablet Take 0.5 tablets by mouth daily at bedtime. Disp: 90 tablet Rfl: 3 FLUoxetine (PROZAC) 20 mg capsule TAKE 1 CAPSULE EVERY DAY Disp: 90 capsule Rfl: 3 aspirin, enteric coated (ECOTRIN LOW STRENGTH) 81 mg EC tablet Take 1 tablet by mouth once daily. Disp: Rfl: 0 nitroglycerin sublingual (NITROQUICK) 0.4 mg SL tablet Dissolve 1 tablet under the tongue as needed. for chest pain, if no pain relief within 5 minutes contact 911 Disp: 25 tablet Rfl: 1 No current facility-administered medications for this visit. FECAL OCCULT BLOOD due on 2006 EXAM: BP 142/92 Pulse 88 Resp 16 Wt 63 kg (139 lb) BMI 18.85 kg/m? Pleasant adult male in no acute distress. Alert and oriented all spheres. Normal affect and cognition. Speech normal. No deficits to learning or comprehension. Skin warm, dry, pink to lips and nailbeds. Normal turgor. Respirations regular and unlabored. Extrem: no clubbing, cyanosis, edema. Extremities are warm and pink with prompt capillary refill. Neuro: CN 2-12 grossly intact. Motor full upper and lower symmetric. Sensory intact distally to light touch. DTR's 0-1/4+ symmetric biceps, triceps, brachioradialis, knee jerk, Achilles. Rhomberg negative. Unable to heel or toe walk. Gait unsteady when raising from chair. 62 year old male here for staple removal. Staple line well approximated. No redness, swelling, pus or other signs of infection. Wound edges well approximated. 3 devon removed without gapping. ASSESSMENT/PLAN: 1. Laceration of scalp, subsequent encounter - ICD9: V58.89, 873.0, ICD10: S01.01XD (primary diagnosis) - Healed laceration; devon removed - Educated patient to keep wound dry and clean for next 24 hours - Return to office for signs of infection, wound gaping, or increased drainage 2. Concussion with loss of consciousness, subsequent encounter - ICD9: V58.89, 850.5, ICD10: S06.0X9D - Educated patient on post concussion headache management - Instructed to follow OTC medication label instructions when taking - Re-evaluate in 1 week 3. Essential hypertension - ICD9: 401.9, ICD10: I10 - suboptimal control - Return for recheck in 1 week - Continue current medication(s) - Recommend home blood pressure monitoring, to bring results in on next visit - Reviewed risks of HTN and principles of treatment - Goal of BP <130/80 4. 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 Coronary artery disease involving lummi heart with angina pectoris, unspecified vessel or lesion type (HCC) - ICD9: 414.01, 413.9, ICD10: I25.119 - Continue medications as prescribed Tal KILPATRICK Student Patient seen and examined with student. Reviewed hospital records. Incision well healed. heent negative Neuro intact. Discussed head injury instructions. encouraged abstainance of etoh. Patient declines. Follow up in one week. Consider MRI and labs if symptoms continue. Dicussed limiting tylenol Red flags for re-assessment reviewed with patient in detail. Kenn Hunter MD Referring Provider: SELF [[id number]] Allergies As of Date: 09/14/2017 (No Known Allergies) Date Reviewed: 06/13/2017 Reviewed by: Norma Mathur) [facility] - Fully Assessed Reason for Visit: Dizziness [36] Headache [52] Primary Visit Diagnosis:Laceration of scalp, subsequent encounter [S01.01XD] Other Visit Diagnoses:Concussion with loss of consciousness, subsequent encounter [S06.0X9D] Essential hypertension [I10] ETOH abuse [F10.10] Coronary artery disease involving lummi heart with angina pectoris, unspecified vessel or lesion type (HCC) [I25.119] Prescriptions as of 09/14/2017 Sig: GABAPENTIN 300 MG CAPSULE TAKE 1 CAPSULE BY MOUTH THREE* NIFEDIPINE ER 90 MG TABLET,EX* Take 1 tablet by mouth once d* VENTOLIN HFA 90 MCG/ACTUATION* Inhale 2 Puffs as instructed * OMEPRAZOLE 20 MG CAPSULE,MINAL* TAKE 1 TABLET EVERY DAY BREO ELLIPTA 200 MCG-25 MCG/D* Inhale 1 Inhalation as instru* ISOSORBIDE MONONITRATE ER 30 * Take 1 tablet by mouth once d* ATORVASTATIN 80 MG TABLET Take 0.5 tablets by mouth evelyn* FLUOXETINE 20 MG CAPSULE TAKE 1 CAPSULE EVERY DAY ASPIRIN 81 MG TABLET,DELAYED * Take 1 tablet by mouth once d* NITROGLYCERIN 0.4 MG SUBLINGU* Dissolve 1 tablet under the t* Problem List As Of Date 09/14/2017 Noted Resolved CAD (coronary artery disease) [I25.10] INVALID FOR* Hypertension [I10] INVALID FOR* Anxiety [F41.9] INVALID FOR* Pain in joint, upper arm [M25.529] INVALID FOR* Raynaud phenomenon [I73.00] More... Polyneuropathy (HCC) [G62.9] INVALID FOR* Tobacco use [Z72.0] INVALID FOR* ETOH abuse [F10.10] INVALID FOR* Visit Notes: >> Hemalatha Romero THAO TueSeptember 14, 2017 1:31 PM Status: Addend HOSPITAL/ER FOLLOW UP: Reason for visit: fall with scalp laceration Which facility: [facility] Date of visit: 09/07/17 Diagnosis: concussion with loss of consciousness, 1.3 cm scalp laceration, alcohol intoxication Testing done: CT brain without contrast Treatment given: 3 devon right side of head Current symptoms: dizziness, headaches Using Tylenol 500 mg tablet 4 at a time maybe 6 times per day. States that only helps with pain from headaches for a couple of hours at most. Denies alcohol use since this incident. Dizziness has caused him to walk into a wall he believes was Tuesday night this week? Has area on forehead with bruise/scratch from this. Disposition: Return in about 1 week (around 09/21/2017). Follow-up and Disposition History Recorded Encounter Status:Closed by KENN HUNTER MD on 09/14/17 EMERGENCY DEPARTMENT Observed: 09/07/2017 Status: F Source: [place] SUMMARY 10:43 PM [facility] REPOSITORY [facility] Medical Records Department [address] [place] [address] Emergency Department Summary 09/07/17 2239 MR#: [id number] Acct: [id number] Name: GRACY PONCE Rep #: [id number] : 1955 62 From: Robin Balbuena MD PCP: Kenn Hunter MD Status: REG ER - ER Visit Summary Date of Service: 09/07/17 Chief Complaint: John from sitting position and fell to the ground. History of Present Illness: The patient is a 62 M who admits to drinking a lot and fell when he john from a sitting position. He fell backwards hitting his head. He awoke on the floor. Last tetanus shot unknown. He complains of blurred vision, headache and nausea and vomiting. He denies neck pain. He denies paresthesia, anesthesia or motor weakness. He denies any cardiac respiratory symptoms. He denies nausea or vomiting. He denies any urologic symptoms. Denies history of bruising easily. He is on no anticoagulant. Please read written note for complete detail Physical Examination: Vital signs are marked for an elevated blood pressure 152/93. There is a 1.3 cm scalp laceration right parietal region. There is no hemotympanum. No CSF otorrhea Grant. Pupils equal round reactive. He has nystagmus. Conjunctivae is pink. Nares patent with no septal deviation hematoma. There is no evidence of bleeding. There is no TMJ tenderness and he has no evidence of malocclusion. Trachea is midline. He has no cervical spine tenderness. Heart is regular without murmur, gallop or rub. S1 and S2 are normal. Lungs are clear to auscultation with good movement of air bilaterally. Abdomen is soft nontender. GCS is 15. Patient is alert and oriented 3. Motor is 5/5. Sensation is intact. DTRs are symmetric without clonus or Babinski. Cranial nerves II through XII are intact. Finger to nose to finger was performed adequately. There was slight past pointing. Test Results: CT of the head was obtained which reveals no evidence of intracranial bleed or fracture. He does have because of thickening of his maxillary sinuses. Alcohol level is 308 Emergency Department Course and Treatment: Because patient fell elderly with loss of conscious CT of the head was obtained to rule out intracranial bleed. Tetanus immunization was updated. The laceration was prepped draped sterile manner. The wound was irrigated. The wound was anesthetized with lidocaine. 3 devon were placed. Treatment Plan: He will go home with his daughters who will watch him throughout the night. He was given appropriate home-going instructions. Disposition: Discharged to home with family Impression: 1. Concussion with loss of consciousness 2. 1.3 cm scalp laceration 3. Alcohol intoxication 4. History of coronary disease 5. History of COPD 6. History hypertension This note was generated with [employer] software. It may contain incorrect words, spelling, and punctuation that were not noted in review of the chart prior to signing ED Disposition - Plan for ED Patient: Disposition: Home or Assisted Living Chief Complaint: Head Injury Instructions: ED Concussion, ED Laceration Scalp Stitch Or Stap Referrals: Kenn Hunter MD [Primary Care Provider] - 7 Days for suture removal What to do if you have Problems For any increased pain, shortness of breath, bleeding, nausea or vomiting, chest pain, or any unexpected problems, contact your Primary Care Provider. Call [facility] ([phone]) or report to the closest Emergency Room. Call 911 if necessary. 09/07/17 2243 <Electronically signed by Robin Balbuena MD> Date Robin Balbuena MD Cosigner Signature (If Indicated): Date CC: Kenn Hunter MD ALCOHOL, BLOOD Collected: 09/07/2017 Status: F Source: [place] (MEDICAL)-SERUM 9:20 PM [facility] REPOSITORY TYPE CODE TESTS RESULT OUT OF RANGE REFERENCE UNITS LAB L501.9100 mg/dL High alert SERUM 309.0 ETOH Result Comment: Critical Result(s) Called at: 22:09:00 09/07/2017 by: Debi Esquivel to Ric The serum:whole blood ethanol ratio is approximately 1.14 and varies slightly with hematocrit. Medical Alcohol reference interval and critical value in non-tolerant individuals; 50 - 100 Impairment 100 Intoxication 100 - 250 Severe Poisoning 250 - 400 Deep/possible fatal coma Performed By: #### L501.9100 #### [facility] [address] [place], [address] BRAIN/HEAD WITHOUT Observed: 09/07/2017 Status: F Source: [place] CONTRAST 9:05 PM [facility] REPOSITORY [facility] Imaging Services [address] [place] [address] Brain/Head without Contrast MR#: [id number] Acct: [id number] Name: GRACY PONCE Rep #: [id number] : 1955 M 62 From: Dontae Weaver MD PCP: Kenn Hunter MD Status: REG ER Study: Brain/Head without Contrast Date of Exam: 09/07/17 Exam# [id number] Ordering Dr: Robin Balbuena MD STUDY: CT BRAIN WITHOUT CONTRAST REASON FOR EXAM: Male, 62 years old. Trauma RADIATION DOSAGE (If Supplied By Facility): CTDIvol = ( 44.99 ) mGy, DLP = ( 812.98 ) mGycm TECHNIQUE: Transaxial CT imaging of the brain was performed without administration of intravenous contrast material. Individualized dose optimization techniques were used for this CT. COMPARISON: April 26, 2016 FINDINGS: Normal soft tissue structures. Normal calvarium. Calcification of the cavernous carotids. Mild atrophy and moderate periventricular white matter ischemic changes.. Normal basal ganglia and thalami. Normal brainstem. Normal cerebellum. There is no intracranial hemorrhage. There are no findings of an acute ischemic infarction. There are postsurgical changes of the orbits. There is prominent mucosal thickening of the maxillary sinuses CT/Brain/Head without Contrast IMPRESSION: Moderate periventricular white matter ischemic changes. No evidence for acute intracranial bleed Electronically Signed: Dontae Weaver MD at 21:55 EDT , Service support , CC: Robin Balbuena MD; Kenn Hunter MD [employer] Developer: Signed 12 LEAD ELECTROCARDIOGRAM Observed: 08/17/2017 Status: F Source: [place] 10:43 AM [facility] REPOSITORY [facility] Cardiovascular Services [address] [place] [address] 12 Lead EKG 08/16/17 1141 MR#: [id number] Acct: [id number] Name: GRACY PONCE Jarod Rep #: [id number] : 1955 62 From: Sreekanth Webb MD Attending Dr: Juanjo Davis Status: REG CLI Ordering Dr: Juanjo Nathan PA-C Date: 08/16/17 Location: LAB Sex: M C Admitted: Test Reason : PRE-OP Blood Pressure : / mmHG Vent. Rate : 061 BPM Atrial Rate : 061 BPM P-R Int : 154 ms QRS Dur : 084 ms QT Int : 400 ms P-R-T Axes : 073 052 067 degrees QTc Int : 402 ms Normal sinus rhythm Possible Left atrial enlargement Borderline ECG When compared with ECG of 30-DEC-2016 22:16, QT has shortened Confirmed by SREEKANTH WEBB ([id number]), editorial intern WYATT WILLARD ([id number]) on 08/17/2017 10:42:44 AM Referred By: Juanjo Nathan Confirmed By:SREEKANTH WEBB 08/17/17 1042 Date Sreekanth Webb MD CC: Juanjo KILPATRICK; Kenn Hunter MD Signed CHEST PA AND LATERAL Observed: 08/16/2017 Status: F Source: [place] 11:38 AM [facility] REPOSITORY [facility] Imaging Services [address] [place] [address] Chest PA and Lateral MR#: [id number] Acct: [id number] Name: GRACY PONCE Rep #: [id number] : 1955 M 62 From: Raj Christianson MD PCP: Kenn Hunter MD Status: REG CLI Study: Chest PA and Lateral Date of Exam: 08/16/17 Exam# [id number] Ordering Dr: Juanjo Nathan PA-C STUDY: X-RAY CHEST REASON FOR EXAM: Male, 62 years old. PRE OP H/O [place]; CABG TECHNIQUE: Frontal and lateral views of the chest. COMPARISON: April 11, 2017. FINDINGS: Multiple median sternotomy wires are noted consistent for cardiac surgery. The lungs are clear and expanded. There is no demonstrated pleural abnormality. Normal size heart. Normal mediastinum and clinton. Normal visualized pulmonary arteries. Normal visualized aortic arch and descending thoracic aorta. Normal visualized thoracic spine. Normal visualized ribs, clavicles, and shoulders. There is no demonstrated abnormality of the visualized soft tissue structures of the upper abdomen. RAD/Chest PA and Lateral IMPRESSION: Normal x-ray examination of the chest. Electronically Signed: Raj Christianson MD at 16:53 EDT , Service support , CC: Juanjo KILPATRICK; Kenn Hunter MD [employer] Developer: Signed CBC-COMPLETE BLOOD CNT Collected: 08/16/2017 Status: F Source: [facility] NO DIFF 11:35 AM [facility] REPOSITORY TYPE CODE TESTS RESULT OUT OF RANGE REFERENCE UNITS LAB L100.1000 4.4-11.0 K/mm3 Normal WBC 8.1 LAB L100.1200 4.6-6.2 M/mm3 Low RBC 3.77 LAB L100.1300 13.0-16.5 g/dl Low HGB 12.2 LAB L100.1400 40-54 % Low HCT 36.9 LAB L100.1500 80-94 fL High MCV 97.9 LAB L100.1600 27.0-32.0 pg High MCH 32.4 LAB L100.1700 32-36 g/gl Normal MCHC 33.1 LAB L100.1810 11.6-14.6 % Normal RDW CV 13.9 LAB L100.1820 35.1-43.9 fl High RDW SD 50.2 LAB L100.1900 150-450 K/mm3 Normal PLT 355 LAB L100.2000 6.2-12.0 fl Normal MPV 9.3 Performed By: #### L100.0500 #### [facility] [address] [place], [address] BASIC METABOLIC Collected: 08/16/2017 Status: F Source: [place] PROFILE (BMP) 11:35 AM [facility] REPOSITORY TYPE CODE TESTS RESULT OUT OF RANGE REFERENCE UNITS LAB L501.0100 74-106 mg/dL Normal GLU 94 Result Comment: Please note revised GLUCOSE reference range effective 2017. LAB L501.1000 7-18 mg/dL Normal BUN 9 LAB L501.1100 0.70-1.30 mg/dL Normal CREAT,SERUM 0.73 Result Comment: The validity of the calculated GFR AND GFRAA in patients over 70 years has not been determined. Clinical correlation is essential. LAB L501.1110 >60 mL/min Normal EST GFR 117 Result Comment: Non- GFR Calc LAB L501.1115 >60 mL/min Normal EST GFR - AA 141 Result Comment: GFR Calc LAB L501.1300 10-20 RATIO Normal BUN/CRE 12.4 LAB L501.2200 8.5-10.1 mg/dL CA Normal 9.2 LAB L501.5300 136-145 mmol/L NA Normal 137 LAB L501.5600 3.5-5.1 mmol/L K Normal 4.0 LAB L501.5900 98-107 mmol/L CL Normal 104 LAB L501.6100 21.0-32.0 mmol/L Normal CO2 27.0 LAB L501.6200 5-15 Normal GAP 6 Performed By: #### L500.2500 #### [facility] [address] [place], [address] H AND P W/ COSIGN Observed: 07/15/2017 Status: F Source: [place] 2:04 PM [facility] REPOSITORY [facility] Medical Records Department [address] [place] [address] H AND P w/ Cosign 07/13/17 1002 MR#: [id number] Acct: [id number] Name: GRACY PONCE Rep #: [id number] : 1955 62 From: Ariana KILPATRICK PCP: Kenn Hunter MD Status: REG [facility] Location: [facility] Problem List (1) Chest pain Status: Acute (2) CAD (coronary artery disease) Status: Chronic History of Present Illness Date of Admission: 07/13/17 The patient is a 62 year old M [presents here today for a heart catheterization. He has a history of ischemic heart disease with bypass surgery in 2008. He was evaluated by Dr. Yoel Andino for preoperative assessment for an upcoming surgery. During that assessment he was noted to have chest discomfort where he needed to use nitroglycerin. He obtained a stress test which was abnormal. Patient states that he has not had any further chest discomfort worries needed to use nitroglycerin. He does have shortness of breath this is not new. He unfortunately does continue to smoke. He does occasionally have lightheadedness or dizziness. He does not have any syncope. He does not have any palpitations. ] Past Medical History Past Medical History (Chronic Problems): Chronic Problems CAD (coronary artery disease) (Chronic) HTN (hypertension) (Chronic) HLD (hyperlipidemia) (Chronic) Allergies No Known Allergies Allergy (Verified 07/12/17 10:39) Home Medications: Ambulatory Orders Medication Instructions Recorded Surgical History: appendectomy, coronary bypass surgery, tonsillectomy, - - appendix out, cabg , tonsils out, eye surgery, heart stent before surgery. Lives: Alone Smoking Status: Current every day smoker Tobacco Use: Cigarettes - *Family History Maternal History Items: - - murrrdered Paternal History Items: Cancer, - - lung cancer Sibling History Items: Diabetes Review of Systems Constitutional: Denies: Anorexia, Chills, Fever, Weakness Cardiovascular: Reports: Chest Pain, Chest Pressure, Chest Tightness Respiratory: Reports: Shortness of Breath, Shortness of breath at rest, Shortness of breath upon exertion. Denies: Cough Gastrointestinal: Denies: Abdominal Pain, Diarrhea, Nausea Genitourinary: Denies: Dysuria Musculoskeletal: Reports: Back Pain VTE Information - Inpt Only VTE Present on Admission: No - Physical Exam General: Alert, Oriented x3, Cooperative HEENT: Atraumatic, PERRLA, EOMI, Normocephalic Neck: Supple, No JVD, Carotid Bruits, Bilateral Lungs: Clear to auscultation Cardiovascular: Regular rate, Regular Rhythm, Normal S1, Normal S2, Murmur - soft STEPHANI Abdomen: Soft, Non Tender Extremities: No clubbing, No cyanosis, No edema Weight: 146 lb Body Mass Index (BMI) 19.8 Assessment/Plan 1. coronary artery disease with previous bypass surgery. 2. Hypertension 3 hyperlipidemia 4 obstructive sleep apnea 5 peripheral arterial disease Patient will be undergoing a heart catheterization today for evaluation of his coronary artery disease for his abnormal stress test. Based upon these findings he will be referred back to Dr. Enrique further assessments can be made for upcoming surgery clearance. 07/13/17 1011 <Electronically signed by Ariana Horowitz PA> Date Ariana KILPATRICK 07/15/17 1404<Electronically signed by Sreekanth Webb MD> Cosigner Signature (if applicable): Date Sreekanth Webb MD CC: Sreekanth Webb MD; Ariana Horowitz; Kenn Hunter MD Signed CNPN Observed: 07/13/2017 Status: COMPLETED Source: [place] 12:00 AM [facility]AMP[facility] REPOSITORY Telephone (AGCARDWST) GRACY PONCE ([id number]) 1955 M Date Time Provider Department 07/13/17 BISHOP ANDINO AGCARDWST During your visit today, we recorded the following information about you: Melquiades Jean, RN, RN 07/13/2017 10:58 AM Signed Cath report from [facility] (07-13-17) in folder for review, thank you. Bishop Andino MD 07/14/2017 12:59 PM Signed Angiogram shows that the bypasses are working well. His shortness of breath may be due to small blood vessel narrowing which cannot be seen on the angiogram. I recommend starting isosorbide mononitrate 30 milligrams daily and changing his statin to Lipitor 40 milligrams daily. He should have a lipid profile, ALT and CK done in 6 weeks. Continue to use nitroglycerin for episodes of shortness of breath or chest discomfort. Stop smoking. There is no contraindication to orthopedic surgery as planned. No further diagnostic studies are required. Risk of perioperative cardiac complications is low to intermediate for this procedure. Please send copy of this note to [facility]. MD Melquiades Beth, MEAGAN, RN 07/14/2017 1:47 PM Signed Patient verbalizes understanding, please review orders, thank you. Bishop Andino MD 07/14/2017 2:17 PM Signed The following approved medication requests have been transmitted electronically. Signed Prescriptions Disp Refills isosorbide mononitrate ER (IMDUR) 30 mg 24 hr tablet 90 tablet 3 Sig: Take 1 tablet by mouth once daily. Authorizing Provider: BISHOP ANDINO atorvastatin (LIPITOR) 80 mg tablet 90 tablet 3 Sig: Take 0.5 tablets by mouth daily at bedtime. Authorizing Provider: BISHOP ANDINO MD Adam Gilmor, RN, RN 07/14/2017 2:28 PM Signed escripts confirmed Melquiades Jean RN, RN 07/14/2017 2:59 PM Signed Faxed copy of this note to [facility] (not [facility]) @ [phone]. Allergies As of Date: 07/13/2017 (No Known Allergies) Date Reviewed: 06/13/2017 Reviewed by: Norma Luke - Fully Assessed Reason for Visit: Outside Testing [1202] Cmt: cath [facility] Primary Visit Diagnosis:Coronary artery disease involving lummi heart with angina pectoris, unspecified vessel or lesion type (HCC) [I25.119] Order(s):isosorbide mononitrate ER (IMDUR) 30 mg 24 hr tabletTake 1 tablet by mouth once daily.Disp: 90 tabletRfl: 3 atorvastatin (LIPITOR) 80 mg tabletTake 0.5 tablets by mouth daily at bedtime.Disp: 90 tabletRfl: 3 ALT/SGPT [SQALT] Order #: [id number] FUTURE CK CREATINE KINASE [SQCK] Order #: [id number] FUTURE LIPID PANEL BASIC [SQLIPB] Order #: [id number] FUTURE Prescriptions as of 07/13/2017 Sig: ISOSORBIDE MONONITRATE ER 30 * Take 1 tablet by mouth once d* ATORVASTATIN 80 MG TABLET Take 0.5 tablets by mouth evelyn* FLUOXETINE 20 MG CAPSULE TAKE 1 CAPSULE EVERY DAY VENTOLIN HFA 90 MCG/ACTUATION* Inhale 2 Puffs as instructed * BREO ELLIPTA 200 MCG-25 MCG/D* Inhale 1 Inhalation as instru* GABAPENTIN 300 MG CAPSULE TAKE 1 CAPSULE BY MOUTH THREE* NITROGLYCERIN 0.4 MG SUBLINGU* Dissolve 1 tablet under the t* NIFEDIPINE ER 90 MG TABLET,EX* Take 1 tablet by mouth once d* OMEPRAZOLE 20 MG CAPSULE,MINAL* Take 1 capsule by mouth once * ASPIRIN 81 MG TABLET,DELAYED * Take 1 tablet by mouth once d* Problem List As Of Date 07/13/2017 Noted Resolved CAD (coronary artery disease) [I25.10] INVALID FOR* Hypertension [I10] INVALID FOR* Anxiety [F41.9] INVALID FOR* Pain in joint, upper arm [M25.529] INVALID FOR* Raynaud phenomenon [I73.00] More... Polyneuropathy (HCC) [G62.9] INVALID FOR* Tobacco use [Z72.0] INVALID FOR* ETOH abuse [F10.10] INVALID FOR* Prescriptions ordered this encounter Disp Refills Start End ISOSORBIDE MONONITRATE ER 30 MG TABL* 90 t* 3 07/14/2017 Route: ORAL Sig: Take 1 tablet by mouth once daily. ATORVASTATIN 80 MG TABLET 90 t* 3 07/14/2017 Route: ORAL Sig: Take 0.5 tablets by mouth daily at bedtime. Medications Discontinued During This Encounter simvastatin (ZOCOR) 40 mg tablet 90 t* 3 08/10/2016 07/14/2017 Route: ORAL Sig: Take 1 tablet by mouth daily at bedtime. Disc: Reason for discontinue is not on file. Encounter Status:Closed by MELQUIADES JEAN on 07/14/17 XR CHEST 2V FRONTAL/LAT Observed: 07/07/2017 Status: F Source: [place] 11:57 AM [facility] REPOSITORY * * *Final Report* * * DATE OF EXAM: Jul 07 2017 11:57AM [id number] [id number] - XR CHEST 2V FRONTAL/LAT / PROCEDURE REASON: Atherosclerotic heart disease of lummi coronary artery without angina pectoris * * * * Physician Interpretation * * * * EXAMINATION: CHEST RADIOGRAPH (2 VIEW FRONTAL and LATERAL) Clinical History: Atherosclerotic heart disease of lummi coronary artery without angina pectoris MQ: XC2_4 Comparison: Chest x-ray of 11/06/2012. RESULT: Lines, tubes, and devices: There is redemonstration of sternotomy wires and mediastinal clips. Lungs and pleura: No consolidation. No lung mass. No pleural effusion. Cardiomediastinal silhouette: Normal cardiomediastinal silhouette. Other: Mild degenerative changes of the thoracic spine. IMPRESSION: No acute radiographic abnormality. Cognos Bi Developer: PSCB Transcribe Date/Time: Jul 07 2017 4:47P Dictated by : LESVIA ACUNA MD This examination was interpreted and the report reviewed and electronically signed by: LESVIA ACUNA MD on Jul 07 2017 4:48PM EST [id number] PROGRESS Observed: 07/07/2017 Status: COMPLETED Source: [place] 11:50 AM [facility] REPOSITORY HNO ID: [id number] Author: Ino Adams (Rt) Service: (none) Author Type: Lift Driver Type: Progress Notes Filed: 07/07/2017 11:57 AM Note Text: Radiology Service Progress Note PATIENT NAME: Gracy Ponce DATE OF SERVICE: July 07, 2017 TIME: 11:50 AM PATIENT IDENTITY VERIFICATION COMPLETED USING TWO (2) METHODS: Patient confirmed name verbally and Date of . PATIENT GENDER DATA: Male PATIENT RELEVANT IMPLANT DATA REVIEWED: Not Applicable RADIOLOGY DEPARTMENT: General X-ray: Exam(s) Completed: Chest X-Ray PERIPHERAL IV DATA: Not applicable SIGNED BY: RT Bryan July 07, 2017 11:50 AM PROTIME Collected: 07/07/2017 Status: F Source: [place] 11:41 AM [facility] REPOSITORY TYPE CODE TESTS RESULT OUT OF RANGE REFERENCE UNITS LAB PSEC 9.7-13.0 sec PT Sec 10.2 LAB INR 0.9-1.3 PT INR 1.0 Result Comment: Vitamin K Antagonist (VKA) Therapeutic Range: INR 2 to 3 (Target INR of 2.5) Note: For patients treated with VKA drugs, such as warfarin, the [place] [employer] 2012 Guideline recommends a therapeutic INR range of 2 to 3 (target INR of 2.5). This recommendation includes high-risk patients with antiphospholipid syndrome with previous arterial or venous thromboembolism, current-generation mechanical or bioprosthetic aortic heart valve replacement. Note: Patients with mechanical aortic valve replacement and additional risk factors for thromboembolic events (atrial fibrillation, previous thromboembolism, LV dysfunction, hypercoagulable conditions) or an older generation mechanical AVR (i.e., ball in-Cage) or any mechanical MVR should have a INR therapeutic range of 2.5 to 3.5 (target INR of 3). Juani GH, et al. Chest 2012, 141:7S-47S Chela RA, et al. [facility] 2017, 70: 252-289 Performed By: #### PT, CBC, BMP #### [facility] [address] [place] [address] CBC Collected: 07/07/2017 Status: F Source: [place] 11:41 AM [facility] REPOSITORY TYPE CODE TESTS RESULT OUT OF REFERENCE UNITS RANGE LAB WBC 3.70-11.00 k/uL WBC 9.70 LAB RBC 4.20-6.00 m/uL Low RBC 3.90 LAB HGB 13.0-17.0 g/dL Low Hemoglobin 12.8 LAB HCT 39.0-51.0 % Hematocrit 39.0 LAB MCV 80.0-100.0 fL MCV 100.0 LAB MCH 26.0-34.0 pG MCH 32.8 LAB MCHC 30.5-36.0 g/dL MCHC 32.8 LAB RDWCV 11.5-15.0 % RDW-CV 14.3 LAB PLTCT 150-400 k/uL Platelet Count 263 LAB MPV 9.0-12.7 fL MPV 9.9 LAB ABSNUC <0.01 k/uL Absolute nRBC <0.01 Performed By: #### PT, CBC, BMP #### [facility] [address] [place] [id number] BASIC METABOLIC PANL Collected: 07/07/2017 Status: F Source: [place] 11:41 AM [facility] REPOSITORY TYPE CODE TESTS RESULT OUT OF REFERENCE UNITS RANGE LAB GLU 74-99 mg/dL Glucose 84 Result Comment: The [place] Diabetes Association (ADA) provides guidance for cutoff values for fasting glucose and random glucose. The ADA defines fasting as no caloric intake for at least 8 hours. Fas ting plasma glucose results between 100 to 125 mg/dL indicate increased risk for diabetes (prediabetes). Fasting plasma glucose results greater than or equal to 126 mg/dL meet the criteria for diagnosis of diabetes. In the absence of unequivocal hyperglycemia, results should be confirmed by repeat testing. In a patient with classic symptoms of hyperglycemia or hyperglycemic crisis, random plasma glucose results greater than or equal to 200 mg/dL meet the criteria for diagnosis of diabetes. Reference: Standards of Medical Care in Diabetes 2016, [place] Diabetes Association. Diabetes Care. 2016.39(Suppl 1). LAB BUN 9-24 mg/dL BUN Low 6 LAB CRET 0.73-1.22 mg/dL Creatinine Low 0.54 LAB NA 136-144 mmol/L Sodium 136 LAB K 3.7-5.1 mmol/L Potassium 4.1 LAB CL 97-105 mmol/L Chloride 97 LAB CO2 22-30 mmol/L CO2 22 LAB AGAP 9-18 mmol/L Anion Gap 17 LAB CA 8.5-10.2 mg/dL Calcium, Total 9.5 LAB GFRAA eGFR- Amer. >60 LAB GFRNAA . eGFR-All Other Races >60 Result Comment: eGFR (Estimated GFR) Units of measure: mL/min/1.73 meters squared eGFR is derived from the reexpressed MDRD Study equation using the following parameters: serum creatinine, age, gender and race. The creatinine assay has been calibrated to be traceable to IDMS. An eGFR <60 mL/min/1.73m2 for >3 months is consistent with chronic kidney disease. Refer to KDOQI guidelines for clinical interpretation. In patients with unstable renal function, e.g. those with acute kidney injury, the eGFR may not accurately reflect actual GFR. Performed By: #### PT, CBC, BMP #### [facility] [address] [place], [place] [address] STRESS REPORT Observed: 07/07/2017 Status: F Source: [place] 10:12 AM [facility] REPOSITORY [facility] Cardiovascular Services [address] [place] [address] MR#: [id number] Acct: [id number] Name: GRACY PONCE Rep #: [id number] : 1955 62 From: Leo Douglass MD Primary Care: Knen Hunter MD Status: REG CLI Ordering Dr: Sex: Wilfredo Pruitt Stress Test Report Pharmacologic myocardial perfusion stress test. 62-year-old man with a history of chest pain. For preoperative evaluation. Patient status post coronary bypass surgery and stenting in 2008. Stress protocol: Resting EKG demonstrates sinus rhythm with a rate of 73 bpm normal intervals and noted resting blood pressure is 132/80 mmHg. 0.4 mg of regadenoson was infused per usual protocol followed by rapid intravenous and flush injection continuous EKG monitoring was performed. The maximum heart rate attained was noted to be 95 bpm is 59% maximum predicted heart rate maximum workload was 1 metabolic equivalent. Patient maintained sinus rhythm throughout the recording at rest there were no ST or T-wave changes noted suggest abnormal flow reserve at peak infusion no ST or T-wave changes were noticed on her flow reserve. Resting blood pressure is 132/80. Myocardial perfusion protocol. 11.2 mCi of technetium 99m sestamibi was injected at rest. 0.4 mg regadenoson was infused per usual protocol. Peak infusion 31.1 mCi of technetium 99m sestamibi was injected stress images were obtained stress and rest images were reconstructed and compared in the short axis vertical long horizontal long axis. Gated images were also obtained next Perfusion SPECT analysis: Review of the stress images demonstrate mildly reduced perfusion noted in the distal anterior wall and apex. The resting images demonstrate improvement suggesting ischemia in the distal anterior wall and apex. No previous infarct is noted. Gated SPECT analysis. The gated ejection fraction is 57%. Conclusion: Abnormal pharmacologic myocardial perfusion stress test with distal anterior wall and apical ischemia. Preserved ejection fraction. 07/07/17 1012 <Electronically signed by Leo Douglass MD> Date Leo Douglass MD CC: Bishop Andino MD; Kenn Hunter MD Date Dictated: 07/07/171002 Date Transcribed: 07/07/171002 Cognos Bi Developer: [place] Signed CNPN Observed: 07/07/2017 Status: COMPLETED Source: [place] 12:00 AM [facility] REPOSITORY Telephone (AGCARDWST) GRACY PONCE ([id number]) 1955 M Date Time Provider Department 07/07/17 BISHOP ANDINO AGCARDWST During your visit today, we recorded the following information about you: Melquiades Jean RN, RN 07/07/2017 10:16 AM Signed NST from [facility] (07-07-17) in folder for review, thank you. Bishop Andino MD 07/07/2017 10:27 AM Signed Stress test shows normal heart function. There is evidence of problems with circulation to the front of the heart. He will require angiography prior to elective surgery. Please arrange at [facility] or other lab of his choice as soon as possible. Please obtain op note from his bypass surgery. MD Melquiades Beth RN, RN 07/07/2017 10:54 AM Signed Patient verbalizes understanding, he is agreeable to having cath done at [facility]. Please review orders and he will come in for testing today. Bypass was done at [facility] in 2008, he will need to sign a release for this and will do so when he is here for testing (located at nursing station). Thank you. Melquiades Jean RN, RN 07/07/2017 11:21 AM Signed Patient signed release, faxed to [facility] STAT @ [phone]. I spoke to Ariana at [facility] to let her know patient will need cath, will fax records tomorrow. Melquiades Jean RN, RN 07/08/2017 10:24 AM Signed Faxed demographics, OV note, copy of this note, ECG, CXR, labs, and insurance cards to [facility] @ [phone]. Melquiades Jean RN, RN 07/08/2017 4:46 PM Signed Op note from [facility] in folder for review, forwarded to [facility] as well. Allergies As of Date: 07/07/2017 (No Known Allergies) Date Reviewed: 06/13/2017 Reviewed by: Norma Luke - Fully Assessed Reason for Visit: Outside Testing [1202] Cmt: NST [facility] Primary Visit Diagnosis:ASHD (arteriosclerotic heart disease) [I25.10] Order(s):XR CHEST 2V FRONTAL/LAT [0165118] Order #: [id number] FUTURE CBC [SQCBC] Order #: [id number] FUTURE BASIC METABOLIC PNL [SQBMP] Order #: [id number] FUTURE PROTHROMBIN TIME/PT [SQPT] Order #: [id number] FUTURE Prescriptions as of 07/07/2017 Sig: FLUOXETINE 20 MG CAPSULE TAKE 1 CAPSULE EVERY DAY VENTOLIN HFA 90 MCG/ACTUATION* Inhale 2 Puffs as instructed * BREO ELLIPTA 200 MCG-25 MCG/D* Inhale 1 Inhalation as instru* GABAPENTIN 300 MG CAPSULE TAKE 1 CAPSULE BY MOUTH THREE* NITROGLYCERIN 0.4 MG SUBLINGU* Dissolve 1 tablet under the t* NIFEDIPINE ER 90 MG TABLET,EX* Take 1 tablet by mouth once d* OMEPRAZOLE 20 MG CAPSULE,MINAL* Take 1 capsule by mouth once * SIMVASTATIN 40 MG TABLET Take 1 tablet by mouth daily * ASPIRIN 81 MG TABLET,DELAYED * Take 1 tablet by mouth once d* Problem List As Of Date 07/07/2017 Noted Resolved CAD (coronary artery disease) [I25.10] INVALID FOR* Hypertension [I10] INVALID FOR* Anxiety [F41.9] INVALID FOR* Pain in joint, upper arm [M25.529] INVALID FOR* Raynaud phenomenon [I73.00] More... Polyneuropathy (HCC) [G62.9] INVALID FOR* Tobacco use [Z72.0] INVALID FOR* ETOH abuse [F10.10] INVALID FOR* Encounter Status:Closed by MELQUIADES JEAN on 07/08/17 DISCHARGE INSTRUCTION Observed: 06/18/2017 Status: F Source: [place] 3:35 PM [facility] REPOSITORY [facility] Medical Records Department [address] [place] [address] Discharge Instruction 06/18/17 1534 MR#: [id number] Acct: [id number] Name: GRACY PONCE Rep #: [id number] : 1955 62 From: Nola Onofre MD PCP: Kenn Hunter MD Status: REG ER ED Disposition - Plan for ED Patient: Chief Complaint: Lower Extremity Injury Instructions: ED Sprain Ankle W X Ray Referrals: Kenn Hunter MD [Primary Care Provider] - What to do if you have Problems For any increased pain, shortness of breath, bleeding, nausea or vomiting, chest pain, or any unexpected problems, contact your Primary Care Provider. Call [facility] ([phone]) or report to the closest Emergency Room. Call 911 if necessary. 06/18/17 1535 <Electronically signed by Nola Onofre MD> Date Nola Onofre MD Cosigner Signature (If Indicated): Date CC: Kenn Hunter MD EMERGENCY DEPARTMENT Observed: 06/18/2017 Status: F Source: [place] SUMMARY 3:34 PM [facility] REPOSITORY [facility] Medical Records Department [address] [place] [address] Emergency Department Summary 06/18/17 1341 MR#: [id number] Acct: [id number] Name: GRACY PONCE Rep #: [id number] : 1955 62 From: Nola Onofre MD PCP: Kenn Hunter MD Status: REG ER - ER Visit Summary Date of Service: 06/18/17 Chief Complaint: Right ankle pain History of Present Illness: The patient is a 62 M presenting with right lower extremity pain. Patient states that he was walking down the steps and missed a step. He twisted his ankle. He has had painful ambulation since. He states he is able to walk on his heel. He had no medications at home. He does not take anticoagulants. He did not hit his head or lose consciousness. Physical Examination: Vitals are stable. Patient is afebrile. Alert no acute distress. HEENT exam is unremarkable. Lungs are clear and equal bilaterally. Heart is regular rate and rhythm. Extremities right lateral foot tenderness, no ankle or knee tenderness Skin is warm and dry. No focal neurologic deficit. Remainder of exam is unremarkable. Emergency Department Course and Treatment: He was given [place] 1. Right ankle x-ray was ordered per nursing protocol and was normal. X-ray of the right foot was ordered and shows no acute process. Given an Aircast. Advised to follow-up with his primary care physician. Advised return ED if worsening complaints. Disposition: Discharged home Impression: Right ankle/foot injury This note was generated with ELVPHD dictation software. It may contain incorrect words, spelling, and punctuation that were not noted in review of the chart prior to signing ED Disposition - Plan for ED Patient: Chief Complaint: Lower Extremity Injury Referrals: Kenn Hunter MD [Primary Care Provider] - What to do if you have Problems For any increased pain, shortness of breath, bleeding, nausea or vomiting, chest pain, or any unexpected problems, contact your Primary Care Provider. Call [facility] ([phone]) or report to the closest Emergency Room. Call 911 if necessary. 06/18/17 1534 <Electronically signed by Nola Onofre MD> Date Nola Onofre MD Cosigner Signature (If Indicated): Date CC: Kenn Hunter MD FOOT MIN 3 VIEWS Observed: 06/18/2017 Status: F Source: [place] 1:41 PM [facility] Imaging Services [address] [place] [address] Foot min 3 Views MR#: [id number] Acct: [id number] Name: GRACY PONCE Rep #: [id number] : 1955 M 62 From: Joe Viera MD PCP: Kenn Hunter MD Status: REG ER Study: Foot min 3 Views Date of Exam: 06/18/17 Exam# [id number] Ordering Dr: Nola Onofre MD STUDY: X-RAY - RIGHT FOOT CLINICAL: Male, 62 years old. Foot pain after falling. TECHNIQUE: 3 view(s) of the foot. COMPARISON: None. FINDINGS: There is demineralization of the rear and midfoot bones. Normal visualized subtalar, talonavicular, calcaneocuboid, tarsal and tarsometatarsal articulations. Normal metatarsi. Normal metatarsophalangeal joint of the great toe. Normal tibial and fibular sesamoid bones. Normal interphalangeal joint of the great toe. Normal phalanges of the great toe. Normal second through fifth metatarsophalangeal joints. Normal interphalangeal joints and phalanges of the lesser toes. The soft tissue structures are unremarkable. RAD/Foot min 3 Views IMPRESSION: No demonstrated acute osseous injury. Electronically Signed: Joe Viera MD at 15:21 EST Tel , Service support , CC: Nola Onofre MD; Kenn Hunter MD Cognos Bi Developer: Signed ANKLE MIN 3 VIEWS Observed: 06/18/2017 Status: F Source: [place] 1:07 PM [facility] REPOSITORY [facility] Imaging Services [address] [place] [address] Ankle min 3 Views MR#: [id number] Acct: [id number] Name: GRACY PONCE Rep #: [id number] : 1955 M 62 From: Joe Viera MD PCP: Kenn Hunter MD Status: PRE ER Study: Ankle min 3 Views Date of Exam: 06/18/17 Exam# [id number] Ordering Dr: Provider, Ed P. STUDY: X-RAY - RIGHT ANKLE REASON FOR EXAM: Male, 62 years old. Status post fall. TECHNIQUE: 3 view(s) of the ankle. COMPARISON: None. FINDINGS: Normal visualized distal tibia and fibula. Normal medial and lateral malleoli. Normal tibiotalar articulation and ankle mortise. Normal visualized talus and calcaneus. The visualized subtalar, talonavicular, calcaneocuboid and tarsal articulations are normal. The soft tissue structures are unremarkable. RAD/Ankle min 3 Views IMPRESSION: Normal x-ray examination of the ankle. Electronically Signed: Joe Viera MD at 13:35 EST Tel , Service support , CC: ED PHYSICIAN PROVIDER; Kenn Hunter MD Cognos Bi Developer: Signed PROGRESS Observed: 06/13/2017 Status: COMPLETED Source: [place] 1:38 PM [facility] OTHER CAMPUS REPOSITORY O ID: [id number] Author: Bishop Andino Service: (none) Author Type: Physician Type: Progress Notes Filed: 06/13/2017 5:29 PM Note Text: PERTINENT CARDIAC HISTORY ASHD - CABGx4 (acute PCI, then CABG) 2008 HTN HL RASHID - no CPAP Raynaud's - on nifedipine TIA PAD ADHERENCE TO GUIDELINES OK-I or ARB for HF with prior LVEF<40 (NQF 0081) - N/A ASA or Plavix for ASHD (NQF 0067) - met Beta sascha for ASHD with prior [place] or prior LVEF<40 (NQF 0070) - COPD Beta sascha for HF with prior LVEF<40 (NQF 0083) - N/A OK-I or ARB for ASHD with DM or prior LVEF<40 (NQF 0066) - N/A Statin therapy for ASHD or FHL or DM - met BMI documented and plan if >25 (NQF 0421) - lifestyle recommendation form Tobacco use screening and referral (NQ 0028) - lifestyle recommendation form Recommendation for whole food, plant based diet - lifestyle recommendation form CLINICAL IMPRESSION/PLAN: Gracy Ponce has known ischemic heart disease. There has been a recent change in exercise tolerance and he has a chronic chest pain syndrome which requires periodic nitroglycerin administration. In the absence of upcoming surgery, I would recommend stress testing for evaluation of his coronary disease. This will be carried out in the near future and final recommendations regarding cardiac risk will be forthcoming. He's been strongly advised to stop smoking. He has been encouraged to use nitroglycerin liberally for chest discomfort and reported increase in symptoms. He is on long acting nifedipine. We will consider switching this to amlodipine, given the potential for reflex tachycardia and increasing ischemia. However, he has been on this for a long time and we will not attempt to make changes prior to surgery. He is on a suboptimal dose of statin therapy and this will be addressed with him in the future. It is unlikely that he was able to tolerate a beta sascha given his lung disease. I will plan on seeing him in 6 month intervals. Thank you for asking me to see and make recommendations on Gracy Ponce. This report will be mailed and faxed to you. Written and verbal health teaching given to patient, patient verbalizes understanding and agrees with treatment plan. This note was generated using ELVPHD voice recognition system, and there may be some incorrect words, spellings, and punctuation that were not noted in checking the note before saving. DIAGNOSIS FOR VISIT: Preoperative cardiac risk assessment Chest pain HISTORY OF PRESENT ILLNESS Gracy Ponce is a 62-year-old gentleman who is seen in consultation at the request of [facility]. Release of Dupuytren's contracture is planned in the near future. There is a history of ischemic heart disease, status post coronary bypass in 2008. He reports that he has had intermittent chest discomfort over the last year, for which he takes nitroglycerin with eventual relief. This occurs several times a month. He has been sleeping poorly. He reports that he is short of breath all the time. This is worse while walking and he reports that he has had a decrease in exercise tolerance recently. He denies orthopnea. He's had no edema, TIAs, amaurosis, claudication, syncope. He has occasional palpitations. ALLERGIES: ALLERGIES No Known Allergies CURRENT OUTPATIENT MEDICATIONS: FLUoxetine (PROZAC) 20 mg capsule TAKE 1 CAPSULE EVERY DAY VENTOLIN HFA 90 mcg/actuation inhaler Inhale 2 Puffs as instructed every 4 hours as needed. BREO ELLIPTA 200-25 mcg/dose inhaler Inhale 1 Inhalation as instructed once daily. DO NOT CLICK OPEN UNTIL READY FOR DOSE gabapentin (NEURONTIN) 300 mg capsule TAKE 1 CAPSULE BY MOUTH THREE TIMES DAILY nitroglycerin sublingual (NITROQUICK) 0.4 mg SL tablet Dissolve 1 tablet under the tongue as needed. for chest pain, if no pain relief within 5 minutes contact 911 NIFEdipine ER (PROCARDIA XL) 90 mg 24 hr tablet Take 1 tablet by mouth once daily. omeprazole (PRILOSEC) 20 mg capsule Take 1 capsule by mouth once daily. simvastatin (ZOCOR) 40 mg tablet Take 1 tablet by mouth daily at bedtime. aspirin, enteric coated (ECOTRIN LOW STRENGTH) 81 mg EC tablet Take 1 tablet by mouth once daily. PAST MEDICAL HISTORY Diagnosis Date - CAD (coronary artery disease) 2008 - Hypertension - [place] (myocardial infarction) 2009 - Raynaud phenomenon decreased beta asscha and added procardia to help - S/P CABG x 4 2008 - Stented coronary artery 2008 PAST SURGICAL HISTORY Procedure Laterality Date - APPENDECTOMY - CABG (4) VEIN GRAFTS AND ARTERIAL GRAFT(S) 2008 [facility] - REMOVAL OF TONSILS; AGE 12 OR OVER FAMILY HISTORY Problem Relation Age of Onset - Cancer Father unkown primary-started in his axilla. - murdered [OTHER] Mother - Colon Cancer Brother - Diabetes Brother - Diabetes Sister - Diabetes Brother - Diabetes Brother Social History Marital status: Single Spouse name: Years of education: Number of children: Social History Main Topics Smoking status: Current Every Day Smoker Packs/day: 0.50 Years: 40.00 Types: Cigarettes Smokeless status: Never Used Alcohol use: Yes Comment: drinks about a couple beer a day Drug use: No REVIEW OF SYSTEMS: General: No chills, fever, weight loss, night sweats. SHEENT: No change in vision or auditory acuity. Respiratory: No productive cough. History of COPD. Cardiac: As noted above. GI: No melena. History of GERD. : No dysuria. Musculoskeletal: No myalgias. Neurologic: No strokes. Psychiatric: No depression. Endocrine: No diabetes. Hematologic: No anemia. PHYSICAL EXAMINATION: S/he is alert and in no distress VITAL SIGNS: BP 142/78 Pulse 73 Ht 6' 0 (1.83m) Wt 146 lb 9.6 oz (66.5kg) BMI 19.88 kg/(m2). SHEENT: Skin is warm and dry. Pupils are round and reactive. No xanthelasmas appreciated. Pharynx is benign. There is no oral cyanosis. Neck: supple. No adenopathy or thyroid enlargement. Chest: Clear to percussion and auscultation. Trachea is midline. Air entry is equal. There is no chest wall tenderness. Cardiac: Regular rhythm. S1 and S2 are normal. PMI is nondisplaced. There is a soft systolic ejection murmur. No click is heard. Carotids are brisk soft bilateral bruits. JVP is less than 10 cm. Abdomen: Soft and nontender. There are no pulsatile masses or bruits. No liver enlargement. Bowel sounds are active. : Deferred. Extremities: Trace edema. Pulses are intact and symmetrical. No clubbing or cyanosis. No femoral bruits. Neurologic: Grossly normal motor and sensory. S/he is alert and oriented x4. Musculoskeletal: There is severe Dupuytren's contracture EKG shows sinus rhythm with minor repolarization changes. There is no significant change. Previous stress test showed no evidence of ischemia. Prior labs were reviewed. LDL was 99. Renal function is normal. Electronically Signed: Bishop Andino MD June 13, 2017 1:38 PM CC: Kenn Hunter MD CNOV Observed: 06/13/2017 Status: COMPLETED Source: [facility] 1:00 PM CLINIC OTHER CAMPUS REPOSITORY Office Visit (AGCARDWST) GRACY PONCE ([id number]) 1955 M Date Time Provider Department 06/13/17 1:00 PM BISHOP ANDINO AGCEMILYWST During your visit today, we recorded the following information about you: Pulse Blood pressure Weight Height 73/minute 142/78 66.5 kg 1.829 m Bishop Andino MD 06/13/2017 5:29 PM Signed PERTINENT CARDIAC HISTORY ASHD - CABGx4 (acute PCI, then CABG) 2008 HTN HL RASHID - no CPAP Raynaud's - on nifedipine TIA PAD ADHERENCE TO GUIDELINES OK-I or ARB for HF with prior LVEFANDlt;40 (NQF 0081) - N/A ASA or Plavix for ASHD (NQF 0067) - met Beta sascha for ASHD with prior [place] or prior LVEFANDlt;40 (NQF 0070) - COPD Beta sascha for HF with prior LVEFANDlt;40 (NQF 0083) - N/A OK-I or ARB for ASHD with DM or prior LVEFANDlt;40 (NQF 0066) - N/A Statin therapy for ASHD or FHL or DM - met BMI documented and plan if ANDgt;25 (NQF 0421) - lifestyle recommendation form Tobacco use screening and referral (NQF 0028) - lifestyle recommendation form Recommendation for whole food, plant based diet - lifestyle recommendation form CLINICAL IMPRESSION/PLAN: Gracy Ponce has known ischemic heart disease. There has been a recent change in exercise tolerance and he has a chronic chest pain syndrome which requires periodic nitroglycerin administration. In the absence of upcoming surgery, I would recommend stress testing for evaluation of his coronary disease. This will be carried out in the near future and final recommendations regarding cardiac risk will be forthcoming. He's been strongly advised to stop smoking. He has been encouraged to use nitroglycerin liberally for chest discomfort and reported increase in symptoms. He is on long acting nifedipine. We will consider switching this to amlodipine, given the potential for reflex tachycardia and increasing ischemia. However, he has been on this for a long time and we will not attempt to make changes prior to surgery. He is on a suboptimal dose of statin therapy and this will be addressed with him in the future. It is unlikely that he was able to tolerate a beta sascha given his lung disease. I will plan on seeing him in 6 month intervals. Thank you for asking me to see and make recommendations on Gracy Ponce. This report will be mailed and faxed to you. Written and verbal health teaching given to patient, patient verbalizes understanding and agrees with treatment plan. This note was generated using ELVPHD voice recognition system, and there may be some incorrect words, spellings, and punctuation that were not noted in checking the note before saving. DIAGNOSIS FOR VISIT: Preoperative cardiac risk assessment Chest pain HISTORY OF PRESENT ILLNESS Gracy Ponce is a 62-year-old gentleman who is seen in consultation at the request of [facility]. Release of Dupuytren's contracture is planned in the near future. There is a history of ischemic heart disease, status post coronary bypass in 2008. He reports that he has had intermittent chest discomfort over the last year, for which he takes nitroglycerin with eventual relief. This occurs several times a month. He has been sleeping poorly. He reports that he is short of breath all the time. This is worse while walking and he reports that he has had a decrease in exercise tolerance recently. He denies orthopnea. He's had no edema, TIAs, amaurosis, claudication, syncope. He has occasional palpitations. ALLERGIES: ALLERGIES No Known Allergies CURRENT OUTPATIENT MEDICATIONS: FLUoxetine (PROZAC) 20 mg capsule TAKE 1 CAPSULE EVERY DAY VENTOLIN HFA 90 mcg/actuation inhaler Inhale 2 Puffs as instructed every 4 hours as needed. BREO ELLIPTA 200-25 mcg/dose inhaler Inhale 1 Inhalation as instructed once daily. DO NOT CLICK OPEN UNTIL READY FOR DOSE gabapentin (NEURONTIN) 300 mg capsule TAKE 1 CAPSULE BY MOUTH THREE TIMES DAILY nitroglycerin sublingual (NITROQUICK) 0.4 mg SL tablet Dissolve 1 tablet under the tongue as needed. for chest pain, if no pain relief within 5 minutes contact 911 NIFEdipine ER (PROCARDIA XL) 90 mg 24 hr tablet Take 1 tablet by mouth once daily. omeprazole (PRILOSEC) 20 mg capsule Take 1 capsule by mouth once daily. simvastatin (ZOCOR) 40 mg tablet Take 1 tablet by mouth daily at bedtime. aspirin, enteric coated (ECOTRIN LOW STRENGTH) 81 mg EC tablet Take 1 tablet by mouth once daily. PAST MEDICAL HISTORY Diagnosis Date - CAD (coronary artery disease) 2008 - Hypertension - [place] (myocardial infarction) 2009 - Raynaud phenomenon decreased beta sascha and added procardia to help - S/P CABG x 4 2008 - Stented coronary artery 2009 PAST SURGICAL HISTORY Procedure Laterality Date - APPENDECTOMY - CABG (4) VEIN GRAFTS ANDamp; ARTERIAL GRAFT(S) 2008 [facility] - REMOVAL OF TONSILS; AGE 12 OR OVER FAMILY HISTORY Problem Relation Age of Onset - Cancer Father unkown primary-started in his axilla. - murdered [OTHER] Mother - Colon Cancer Brother - Diabetes Brother - Diabetes Sister - Diabetes Brother - Diabetes Brother Social History Marital status: Single Spouse name: Years of education: Number of children: Social History Main Topics Smoking status: Current Every Day Smoker Packs/day: 0.50 Years: 40.00 Types: Cigarettes Smokeless status: Never Used Alcohol use: Yes Comment: drinks about a couple beer a day Drug use: No REVIEW OF SYSTEMS: General: No chills, fever, weight loss, night sweats. SHEENT: No change in vision or auditory acuity. Respiratory: No productive cough. History of COPD. Cardiac: As noted above. GI: No melena. History of GERD. : No dysuria. Musculoskeletal: No myalgias. Neurologic: No strokes. Psychiatric: No depression. Endocrine: No diabetes. Hematologic: No anemia. PHYSICAL EXAMINATION: S/he is alert and in no distress VITAL SIGNS: BP 142/78 Pulse 73 Ht 6' 0ANDquot; (1.83m) Wt 146 lb 9.6 oz (66.5kg) BMI 19.88 kg/(m2). SHEENT: Skin is warm and dry. Pupils are round and reactive. No xanthelasmas appreciated. Pharynx is benign. There is no oral cyanosis. Neck: supple. No adenopathy or thyroid enlargement. Chest: Clear to percussion and auscultation. Trachea is midline. Air entry is equal. There is no chest wall tenderness. Cardiac: Regular rhythm. S1 and S2 are normal. PMI is nondisplaced. There is a soft systolic ejection murmur. No click is heard. Carotids are brisk soft bilateral bruits. JVP is less than 10 cm. Abdomen: Soft and nontender. There are no pulsatile masses or bruits. No liver enlargement. Bowel sounds are active. : Deferred. Extremities: Trace edema. Pulses are intact and symmetrical. No clubbing or cyanosis. No femoral bruits. Neurologic: Grossly normal motor and sensory. S/he is alert and oriented x4. Musculoskeletal: There is severe Dupuytren's contracture EKG shows sinus rhythm with minor repolarization changes. There is no significant change. Previous stress test showed no evidence of ischemia. Prior labs were reviewed. LDL was 99. Renal function is normal. Electronically Signed: Bishop Andino MD June 13, 2017 1:38 PM CC: MD Bishop Joseph MD 06/13/2017 2:30 PM Signed LIFESTYLE CHANGE A healthy lifestyle is the most important component of your overall treatment plan. Please give serious thought to the following areas and commit to making assisted changes. EAT A WHOLE FOOD, PLANT BASED DIET The nutrition your body gets is more important than the medicine you take. What matters most is the overall way you eat. We encourage you to minimize the use of animal products (which include dairy and all meats except fatty fish) and use whole, unprocessed plant foods to provide your protein, vitamins and other nutrients. We have a lot of information to share with you on this topic. We also hold Shared Medical Appointments, where you can come visit with Dr. Andino in the company of other patients and spend over an hour talking about the challenges of changing the way you eat. This is not a ANDquot;dietANDquot;. It is a way of life that you will keep with you. EXERCISE REGULARLY It is not important to spend hours in the gym, lifting weights and perspiring heavily. A total of 2-3 hours per week of aerobic (causing you to be moderately short of breath) exercise is sufficient to improve your health. Talk to us before you begin a new exercise program, if you have heart disease or experience shortness of breath or chest pain. REDUCE STRESS Chronic emotional and physical stress leads to disease. Ways of reducing stress include meditation, visualization, prayer, yoga and other forms of relaxation therapy. Consistency is the bolaños. Find a technique that works for you and do it every day. CULTIVATE RELATIONSHIPS Loneliness and isolation have a major negative impact on health. Seek out others who can love, care for and nurture you. Avoid hurtful relationships. MAINTAIN IDEAL BODY WEIGHT The best way to do this is to do all the things above. Our bodies naturally find the right weight if we keep moving and feed ourselves the right food. If your BMI is greater than 25, we strongly recommend a referral to a weight management program. Please speak to us or your family physician about available programs. AVOID NICOTINE IN ALL FORMS This includes all tobacco products, whether chewed, smoked, vaped, or rubbed on the skin. Smoking cessation programs, which can make use of tobacco substitutes, medications to suppress cravings and behavior management, are available. Please contact your family physician about programs in your area. Melquiades eJan, RN, RN 06/14/2017 9:04 AM Signed Copy of OV note faxed to Syd Lockett. Referring Provider: SELF [[id number]] Allergies As of Date: 06/13/2017 (No Known Allergies) Date Reviewed: 06/13/2017 Reviewed by: Norma Luke - Fully Assessed Reason for Visit: New Patient [172] Primary Visit Diagnosis:ASHD (arteriosclerotic heart disease) [I25.10] Other Visit Diagnoses:Chest pain, unspecified type [R07.9] Hypertension, essential [I10] Order(s):ECG B/O W INTERP (MED OFFICE) [ECG06] Order #: [id number] NM CARDIAC PERF STRESS/PHARM [8685944] Order #: [id number] FUTURE [] regadenoson (LEXISCAN) 0.4 mg/5 mL syrgInject 5 mL intravenously one time only for 1 dose. Give IV push over 10 seconds and follow with 5 ml of normal salineDisp: 5 mLRfl: 0 IV START - SPECIFY [[id number]] Order #: [id number]: 1 IV DISCONTINUE [[id number]] Order #: [id number]: 1 Prescriptions as of 06/13/2017 Sig: FLUOXETINE 20 MG CAPSULE TAKE 1 CAPSULE EVERY DAY VENTOLIN HFA 90 MCG/ACTUATION* Inhale 2 Puffs as instructed * BREO ELLIPTA 200 MCG-25 MCG/D* Inhale 1 Inhalation as instru* GABAPENTIN 300 MG CAPSULE TAKE 1 CAPSULE BY MOUTH THREE* NITROGLYCERIN 0.4 MG SUBLINGU* Dissolve 1 tablet under the t* NIFEDIPINE ER 90 MG TABLET,EX* Take 1 tablet by mouth once d* OMEPRAZOLE 20 MG CAPSULE,MINAL* Take 1 capsule by mouth once * SIMVASTATIN 40 MG TABLET Take 1 tablet by mouth daily * ASPIRIN 81 MG TABLET,DELAYED * Take 1 tablet by mouth once d* REGADENOSON 0.4 MG/5 ML INTRA* Inject 5 mL intravenously one* Problem List As Of Date 06/13/2017 Noted Resolved CAD (coronary artery disease) [I25.10] INVALID FOR* Hypertension [I10] INVALID FOR* Anxiety [F41.9] INVALID FOR* Pain in joint, upper arm [M25.529] INVALID FOR* Raynaud phenomenon [I73.00] More... Polyneuropathy (HCC) [G62.9] INVALID FOR* Tobacco use [Z72.0] INVALID FOR* ETOH abuse [F10.10] INVALID FOR* Other instructions from your clinician: LIFESTYLE CHANGE A healthy lifestyle is the most important component of your overall treatment plan. Please give serious thought to the following areas and commit to making assisted changes. EAT A WHOLE FOOD, PLANT BASED DIET The nutrition your body gets is more important than the medicine you take. What matters most is the overall way you eat. We encourage you to minimize the use of animal products (which include dairy and all meats except fatty fish) and use whole, unprocessed plant foods to provide your protein, vitamins and other nutrients. We have a lot of information to share with you on this topic. We also hold Shared Medical Appointments, where you can come visit with Dr. Andino in the company of other patients and spend over an hour talking about the challenges of changing the way you eat. This is not a diet. It is a way of life that you will keep with you. EXERCISE REGULARLY It is not important to spend hours in the gym, lifting weights and perspiring heavily. A total of 2-3 hours per week of aerobic (causing you to be moderately short of breath) exercise is sufficient to improve your health. Talk to us before you begin a new exercise program, if you have heart disease or experience shortness of breath or chest pain. REDUCE STRESS Chronic emotional and physical stress leads to disease. Ways of reducing stress include meditation, visualization, prayer, yoga and other forms of relaxation therapy. Consistency is the bolaños. Find a technique that works for you and do it every day. CULTIVATE RELATIONSHIPS Loneliness and isolation have a major negative impact on health. Seek out others who can love, care for and nurture you. Avoid hurtful relationships. MAINTAIN IDEAL BODY WEIGHT The best way to do this is to do all the things above. Our bodies naturally find the right weight if we keep moving and feed ourselves the right food. If your BMI is greater than 25, we strongly recommend a referral to a weight management program. Please speak to us or your family physician about available programs. AVOID NICOTINE IN ALL FORMS This includes all tobacco products, whether chewed, smoked, vaped, or rubbed on the skin. Smoking cessation programs, which can make use of tobacco substitutes, medications to suppress cravings and behavior management, are available. Please contact your family physician about programs in your area. Visit Notes: >> Melquiades (Rn) MEAGAN Jean juan Jun 14, 2017 9:03 AM Status: Signed Copy of OV note faxed to Syd Lockett. Prescriptions ordered this encounter Disp Refills Start End REGADENOSON 0.4 MG/5 ML INTRAVENOUS * 5 mL 0 06/13/2017 06/13/2017 Class: In Office Route: INTRAVENOUS Sig: Inject 5 mL intravenously one time only for 1 dose. Give IV push over 10 seconds and follow with 5 ml of normal saline Follow-up and Disposition History Recorded Encounter Status:Closed by BISHOP ANDINO MD on 06/13/17 ALLERGIES ALLERGIES DATE TYPE / CODE NAME / CODE REACTION SEVERITY SOURCE 04/03/2018 Drug No Known Unknown [facility] Allergy/416 Allergies/[id number] [facility] 666301(SNOM 0388(RXNORM) Repository ED CT) Drug NO KNOWN [facility] Class/07303 ALLERGIES Other [place] 1003(SNOMED Repository CT) NG/20808043 NO KNOWN [facility] 6(SNOMED ALLERGIES [facility]) Repository ENCOUNTERS ENCOUNTERS ADMIT/DISCHARGE ACCOUNT NUMBER ADMITTING ENCOUNTER LOCATION SOURCE CLASS 04/04/2018/04/04/20 [id number] Ambulatory BMSBuilding: [place] 18 BMS.[facility] Repository 03/29/2018/03/30/20 [id number] Ambulatory [address] Repository 03/22/2018/03/23/20 [id number] Ag[place], Inpatient [place] Syd 18 [address] Angel Encounter [facility] ding:PCURoom Repository : [id number]: 1 03/22/2018 [id number] Agyepong, Ambulatory BMSBuilding: Syd HULL.[facility] Repository 03/22/2018 [id number] Agyepong, Ambulatory BMSBuilding: Syd Michelle BMS.[facility] Repository 03/22/2018 [id number] Agyepong, Ambulatory BMSBuilding: Syd Michelle BMS.[facility] Repository 03/22/2018 [id number] Agyepong, Ambulatory BMSBuilding: Syd Michelle BMS.[facility] Repository 03/20/2018/03/21/20 [id number] Ambulatory [address] Repository 03/20/2018/03/21/20 [id number] Ambulatory [address] Repository 02/20/2018/02/23/20 [id number] Ambulatory [address] Repository 02/13/2018/02/14/20 [id number] Ambulatory [address] ding:ENRoom: Repository AC14 01/12/2018/01/13/20 [id number] Ambulatory [address] [place] Repository 12/20/2017/12/21/19 [id number] Ambulatory [address] [place] Repository 12/20/2017/12/23/19 [id number] Ambulatory [address] Repository 12/20/2017 [id number] Ambulatory [facility] MEDICAL Repository CENTERBuildi ng:CAGWS 12/12/2017/12/15/19 [id number] Ambulatory [address] Repository 09/14/2017/09/16/19 [id number] Ambulatory [address] Repository 09/07/2017/09/08/19 [id number] Emergency [address] ding:ED Repository 08/16/2017 [id number] Ambulatory [facility] ding:LAB Repository 08/16/2017 [id number] Ambulatory BMSBuilding: [facility] Repository 07/13/2017 [id number] Ambulatory [facility] ding:CLSP Repository 07/13/2017 [id number] Ambulatory BMSBuilding: Syd HULL.[facility] Repository 07/11/2017/07/12/19 [id number] Ambulatory BMSBuilding: [place] 18 BMS.[facility] Repository 07/07/2017/07/08/19 [id number] Ambulatory [address] [place] Repository 07/07/2017/07/08/19 [id number] Ambulatory [address] Repository 07/07/2017 [id number] Ambulatory [facility] ding:[facility] Repository 07/07/2017 [id number] Ambulatory BMSBuilding: Syd [facility] Repository 07/01/2017 [id number] Ambulatory [facility] ding:[facility] Repository 06/18/2017/06/18/19 [id number] Emergency [address] ding:ED Repository 06/13/2017/06/13/19 [id number] Ambulatory [address] Repository 06/13/2017/06/13/19 [id number] Ambulatory [address] MEDICAL Repository CENTERBuildi ng:TONY [employer]ERS PAYERS ENCOUNTER GUARANTOR PAYER SUBSCRIBER SOURCE 04/04/2018 ALMOND L Primary ALMOND L [place] [id number] Insurance:CARESOURCEP [facility]ER[facility] [place]: [id number] [id number] Repository [id number]: (330) Date:2018-03-29 O [phone] () [address]ATTN: [place] [address]OD: 04/04/2018 Secondary NOT GIVENUNK Syd Insurance:SELF PAY [facility] Number: Effective Repository Date:2018-04-04 03/22/2018 ALMOND L Primary ALMOND L Syd [id number] Insurance:CARESOURCEP [facility] Number: [id number], [place] [id number] Repository 137[address]Dub: (330) Date:2018-03-21P O [phone] () [address]ATTN: [place] [address]QI: 03/22/2018 Secondary NOT GIVENUNK Syd Insurance:SELF PAY [facility] Number: Effective Repository Date:2018-03-21 03/22/2018 ALMOND L Primary ALMTYRONE L Syd [id number] Insurance:CARESOURCEP COTTRELLDOB: Community [address] o[address]y Number: [id number], [place] [id number] Repository [address]Tom: (330) Date:2018-03-21P O [phone] () [address]ATTN: [place] [address]VW: 03/22/2018 Secondary NOT GIVENUNK [place] Insurance:SELF PAY [facility] Number: Effective Repository Date:2018-03-22 03/22/2018 ALMOND L Primary GRACY L Syd [id number] Insurance:CARESOURCEP COTTRELLDOB: Community [address] o[address] Number: [id number], [place] [id number] Repository [address]Mqk: (330) Date:2018-03-21P O [phone] () [address]ATTN: [place] [address]QG: 03/22/2018 Secondary NOT GIVENUNK [place] Insurance:SELF PAY [facility] Number: Effective Repository Date:2018-03-22 03/22/2018 ALMOND L Primary ALMTYRONE L [place] [id number] Insurance:CARESOURCEP COTTRELLDOB: Community [address] Number: [id number], [place] [id number] Repository [address]Ebc: (330) Date:2018-03-21P O [phone] () [address]ATTN: [place] [address]ST: 03/22/2018 Secondary NOT GIVENUNK [place] Insurance:SELF PAY [facility] Number: Effective Repository Date:2018-03-22 03/22/2018 ALMOND L Primary ALMOND L Syd [id number] Insurance:CARESOURCEP COTTRELLDOB: Community [address] Number: [id number], [place] [id number] Repository [address]Kmq: (330) Date:2018-03-21P O [phone] () [address]ATTN: [place] [address]IG: 03/22/2018 Secondary NOT GIVENUNK [place] Insurance:SELF PAY [facility] Number: Effective Repository Date:2018-03-22 02/13/2018 ALMOND L Primary ALMOND L Syd [id number] Insurance:CARESOURCEP COTTRELLDOB: Community [address] Number: [id number], [place] [id number] Repository [address]Ouw: (330) Date:2017-12-12P O [phone] () [address]ATTN: [place] [address]VP: 02/13/2018 Secondary NOT GIVENUNK [place] Insurance:SELF PAY [facility] Number: Effective Repository Date:2017-12-12 12/20/2017 ALMOND L Primary ALMOND L [facility] COTTRELLDOB: Insurance:CARESOURCE COTTRELLDOB: Health System MEDICAIDPolicy [id number] Repository [address] Number: [place], [place] [id number]: (330) Date: [phone] () 09/07/2017 ALMOND L Primary ALMOND L [place] [id number] Insurance:CARESOURCEP COTTRELLDOB: Community [address] Number: [id number], [place] [id number] Repository [address]Sun: (330) Date:2017-09-07P O [phone] () [address]ATTN: [place] [address]WR: 09/07/2017 Secondary NOT GIVENUNK [place] Insurance:SELF PAY [facility] Number: Effective Repository Date:2017-09-07 08/16/2017 ALMOND L Primary ALMOND L Syd [id number] Insurance:CARESOURCEP COTTRELLDOB: Community [address] Number: [id number], [place] [id number] Repository [address]Fey: (330) Date:2017-08-16P O [phone] () [address]ATTN: [place] [address]GI: 08/16/2017 Secondary NOT GIVENUNK [place] Insurance:SELF PAY [facility] Number: Effective Repository Date:2017-08-16 08/16/2017 ALMOND L Primary ALMOND L Syd [id number] Insurance:CARESOURCEP COTTRELLDOB: Community [address] Number: [id number], [place] [id number] Repository [address]Ocq: (330) Date:2017-08-16P O [phone] () [address]ATTN: [place] [address]AU: 08/16/2017 Secondary NOT GIVENUNK [place] Insurance:SELF PAY [facility] Number: Effective Repository Date:2017-08-16 07/13/2017 ALMOND L Primary ALMOND L Syd [id number] Insurance:CARESOURCEP COTTRELLDOB: Community [address] Number: [id number], [place] [id number] Repository [address]Uqy: (330) Date:2017-07-08P O [phone] () [address]ATTN: [place] [address]KD: 07/13/2017 Secondary NOT GIVENUNK [place] Insurance:SELF PAY [facility] Number: Effective Repository Date:2017-07-08 07/13/2017 ALMOND L Primary ALMOND L [place] [id number] Insurance:CARESOURCEP COTTRELLDOB: Community [address] Number: [id number], [place] [id number] Repository [address]Mgv: (330) Date:2017-07-08 O [phone] () [address]ATTN: [place] [address]WI: 07/13/2017 Secondary NOT GIVENUNK [place] Insurance:SELF PAY [facility] Number: Effective Repository Date:2017-07-13 07/11/2017 ALMOND L Primary ALMOND L Syd [id number] Insurance:CARESOURCEP COTTRELLDOB: Community [address] Number: [id number], [place] [id number] Repository [address]Kyp: (330) Date:2017-07-08 O [phone] () [address]ATTN: [place] [address]CB: 07/11/2017 Secondary NOT GIVENUNK [place] Insurance:SELF PAY [facility] Number: Effective Repository Date:2017-07-08 07/07/2017 [place] Primary [place] [id number] Insurance:CARESOURCEP CottrellDOB: Community [address] Number: [id number], [place] [id number] Repository [address]Los: (330) Date:2017-07-05 O [phone] () [address]ATTN: [place] [address]AZ: 07/07/2017 Secondary NOT GIVENUNK [place] Insurance:SELF PAY [facility] Number: Effective Repository Date:2017-07-05 07/07/2017 ALMOND L Primary ALMOND L [place] [id number] Insurance:CARESOURCEP COTTRELLDOB: Community [address] Number: [id number], [place] [id number] Repository [address]Xks: (330) Date:2017-07-05 O [phone] () [address]ATTN: [place] [address]UH: 07/07/2017 Secondary NOT GIVENUNK [place] Insurance:SELF PAY [facility] Number: Effective Repository Date:2017-07-07 07/01/2017 [place] L Primary [place] L Syd [id number] Insurance:CARESOURCEP CottrellDOB: Community [address] Number: [id number], [place] [id number] Repository [address]Zgh: (330) Date:2017-06-13P O [phone] () [address]ATTN: [place] [address]MN: 07/01/2017 Secondary NOT GIVENUNK [place] Insurance:SELF PAY [facility] Number: Effective Repository Date:2017-06-13 06/18/2017 [place] L Primary [place] Syd [id number] Insurance:CARESOURCEP CottrellDOB: [facility] [address] Number: [id number], [place] [id number] Repository [address]Mds: (330) Date:2017-06-18P O [phone] () [address]ATTN: [place] [address]PL: 06/18/2017 Secondary NOT GIVENUNK [place] Insurance:SELF PAY [facility] Number: Effective Repository Date:2017-06-18 06/13/2017 ALMOND L Primary [facility]MOND L [facility]:CARESOURCE GERIB: [facility] System MEDICAIDPolicy [id number] Repository [address] Number: [place], [place] [id number] [address]Gal: (330) Date: [phone] ()
== END 2018-03-23 13:37 | disposition home or self-care (01) | DRG 190 ==
LOC: ED 20:38 → PCU 03-22 00:37
PROVIDERS: Admitting Provider Hospitalist; Emergency Provider Emergency Medicine; Family Provider Family Medicine; PCP Family Medicine; Visit Provider Family Medicine
DX: I21.4 Non-ST elevation (NSTEMI) myocardial infarction (principal); E87.2 Acidosis; E87.8 Other disorders of electrolyte and fluid balance, not elsewhere classified; F32.9 Major depressive disorder, single episode, unspecified; I10 Essential (primary) hypertension; F17.210 Nicotine dependence, cigarettes, uncomplicated; E78.5 Hyperlipidemia, unspecified; Z23 Encounter for immunization; I25.810 Atherosclerosis of coronary artery bypass graft(s) without angina pectoris; F10.129 Alcohol abuse with intoxication, unspecified; Y90.8 Blood alcohol level of 240 mg/100 ml or more; I73.9 Peripheral vascular disease, unspecified; I25.10 Atherosclerotic heart disease of native coronary artery without angina pectoris; Z95.1 Presence of aortocoronary bypass graft; Z95.5 Presence of coronary angioplasty implant and graft; Z79.899 Other long term (current) drug therapy; F12.90 Cannabis use, unspecified, uncomplicated
CPT/HCPCS: 36415; 70450; 71045; 71275; 80048; 80053; 80061; 80307; 80320; 81001; 83605; 83690; 84484; 85025; 85610; 85730; 93005; 93459; 94640; 97162; 97165; 97535; 97802; 99285; 99406; J7030; Q9967; 90686; A4216; C1769; C1894; G0480

== ENCOUNTER 2018-05-19 11:41 | Emergency (ER) | payer MEDICAID, SELFPAY ==
[2018-04-04 10:46] VITALS: BMI 19.5
[2018-05-19 11:42] VITALS: BP 147/78; PULSE 56; RESP 16; TEMP 36.8; O2SAT 100; BMI 21.0
--- NOTE | 2018-05-19 11:57 | ED.VISSUMM ---
- ER Visit Summary Date of Service: 05/19/18 Chief Complaint: Difficulty urinating History of Present Illness: The patient is a 63 M your prior CVA, CAD with prior [place], prior quadruple bypass with cardiac stent, COPD and anemia. No prior urologic, bladder or prostate surgeries. Patient states the last 3 days has had difficulty urinating. States he tries any gets either no urine or very limited dribbling. He denies any gross hematuria. He denies any significant pain. He denies any discharge. No dysuria. No hematuria. No cloudy urine. No prior history. No recent catheterization or cystoscopy. He does not see a urologist. Physical Examination: Well-appearing older male. Vital signs are stable. He is afebrile. He does not look septic or toxic. He is in no distress. H EENT exam unremarkable. Neck nontender. Lungs clear to auscultation bilaterally. Heart regular rate and rhythm no murmur. Abdomen soft. Nondistended. Normal bowel sounds. No peritoneal signs. No obvious distended bladder. No organomegaly or masses. External exam unremarkable. Circumcised male. No bleeding or discharge. Nontender. Extremities moves all 4. No edema. Neurologically is awake and alert with no focal motor deficits. Test Results: There is bladder scan the patient only shows 50 cc. CBC shows white count 11.9. Hemoglobin 11.3 which is his baseline chronic anemia. Electrolytes unremarkable. Normal gap. Normal BUN and creatinine. UA normal with no signs of infection. Emergency Department Course and Treatment: Medically the patient is describing difficulty urinating I do not feel an enlarged urinary bladder. March will be placed. Repeat exam patient is doing well at 15 11 PM. States he feels fine. I explained to him this may or may not be secondary to enlarged prostate and needs a follow-up with urologist. Treatment Plan: Follow-up with Dr. Chucky Lou for urology. Disposition: Discharge Impression: Urinary hesitancy of uncertain etiology This note was generated with [employer] dictation software. It may contain incorrect words, spelling, and punctuation that were not noted in review of the chart prior to signing ED Disposition - Plan for ED Patient: Chief Complaint: Complaint Referrals: Kenn Parra MD [Primary Care Provider] -
--- NOTE | 2018-05-19 12:01 | ED.DCSUM_ITS ---
- ER Visit Summary Date of Service: 05/19/18 Chief Complaint: Difficulty urinating History of Present Illness: The patient is a 63 M your prior CVA, CAD with prior [place], prior quadruple bypass with cardiac stent, COPD and anemia. No prior urologic, bladder or prostate surgeries. Patient states the last 3 days has had difficulty urinating. States he tries any gets either no urine or very limited dribbling. He denies any gross hematuria. He denies any significant pain. He denies any discharge. No dysuria. No hematuria. No cloudy urine. No prior history. No recent catheterization or cystoscopy. He does not see a urologist. Physical Examination: Well-appearing older male. Vital signs are stable. He is afebrile. He does not look septic or toxic. He is in no distress. H EENT exam unremarkable. Neck nontender. Lungs clear to auscultation bilaterally. Heart regular rate and rhythm no murmur. Abdomen soft. Nondistended. Normal bowel sounds. No peritoneal signs. No obvious distended bladder. No organomegaly or masses. External exam unremarkable. Circumcised male. No bleeding or discharge. Nontender. Extremities moves all 4. No edema. Neurologically is awake and alert with no focal motor deficits. Test Results: There is bladder scan the patient only shows 50 cc. CBC shows white count 11.9. Hemoglobin 11.3 which is his baseline chronic anemia. Electrolytes unremarkable. Normal gap. Normal BUN and creatinine. UA normal with no signs of infection. Emergency Department Course and Treatment: Medically the patient is describing difficulty urinating I do not feel an enlarged urinary bladder. March will be placed. Repeat exam patient is doing well at 15 11 PM. States he feels fine. I explained to him this may or may not be secondary to enlarged prostate and needs a follow-up with urologist. Treatment Plan: Follow-up with Dr. Chucky Lou for urology. Disposition: Discharge Impression: Urinary hesitancy of uncertain etiology This note was generated with [employer] dictation software. It may contain incorrect words, spelling, and punctuation that were not noted in review of the chart prior to signing ED Disposition - Plan for ED Patient: Chief Complaint: Complaint Referrals: Kenn Parra MD [Primary Care Provider] -
[2018-05-19 12:23] LABS: Bacteria 0 SEEN /hpf (None Seen); Mucous, Urine 0 SEEN /hpf (<or=2+); Red Blood Cells-Urine 0 SEEN /hpf (0-5)
[2018-05-19 12:27] LABS: Color, Urine Yellow (Yellow); Glucose, Dipstick Normal (Normal); Ketone-Dipstick Negative (Negative); Leukocyte Esterase-Dipstick 25 /ul (Negative); Nitrite-Dipstick Negative (Negative); Occult Blood-Urine Negative /ul (Negative); Protein-Dipstick Negative (Negative); Urine Bilirubin Dipstick Negative (Negative); Urine Clarity Clear (Clear); Urine Urobilinogen 1 mg/dl (Normal)
[2018-05-19 12:33] LABS: Absolute Lymphocyte Count 2.32 X10^3/ul (0.83-4.51); Basophil# 0.06 X10^3/uL; Basophil% 0.5 % (0-1); Eosinophil# 0.35 X10^3/uL; Eosinophils% 2.9 % (0-5); Hematocrit 34.3 % (40-54); Hemoglobin 11.3 g/dl (13.0-16.5); Lymphocyte # 2.32 X10^3/ul (4.0); Lymphocyte % 19.5 % (19-41); Mean Corp Hgb Conc 32.9 g/gl (32-36); Mean Corpuscular Hgb 32.8 pg (27.0-32.0); Mean Corpuscular Volume 99.7 fL (80-94); Mean Platelet Vol. 9.6 fl (6.2-12.0); Monocyte# 1.11 X10^3/uL; Monocyte% 9.3 % (0-10); Neutrophil # 8.03 X10^3/uL (2.7-7.7); Neutrophil % 67.5 % (47-70); Platelet Count 326 K/mm3 (150-450); RBC Distribution Width CV 13.5 % (11.6-14.6); RBC Distribution Width SD 49.2 fl (35.1-43.9); Red Blood Count 3.44 M/mm3 (4.6-6.2); White Blood Count 11.9 K/mm3 (4.4-11.0)
[2018-05-19 12:34] LABS: Squamous Epithelial Cells - UA 0-5 SEEN /hpf (0-5); White Blood Cells 0-5 SEEN /hpf (0-5)
[2018-05-19 12:38] LABS: POSITIVE COUNT NO; POSITIVE DIFFERENTIAL NO; POSITIVE MORPHOLOGY NO
[2018-05-19 12:40] LABS: Anion Gap 7 (5-15); BUN 6 mg/dL (7-18); BUN/Creat Ratio 9.6 RATIO (10-20); Calcium,Total 8.8 mg/dL (8.5-10.1); Chloride 101 mmol/L (98-107); Creatinine, Serum 0.62 mg/dL (0.70-1.30); EST Glomerular Filtration Rate 139 mL/min (>60); Est Glom Filt Rate - Afr Amer 168 mL/min (>60); Estimated Creatinine Clearance 119.69 ml/min; Glucose 89 mg/dL (74-106); Sodium Level 134 mmol/L (136-145)
--- NOTE | 2018-05-19 15:19 | ED.DEP ---
ED Disposition - Plan for ED Patient: Disposition: Home or Assisted Living Chief Complaint: Complaint Referrals: Alexi Sparrow MD [STAFF PHYSICIAN] - As soon as possible Additional Instructions: Follow-up with Dr. Sparrow of urology. He can do further evaluation of your urinary hesitancy. It may be secondary to enlarged prostate versus other causes.
[2018-05-19 15:24] VITALS: BP 134/72; PULSE 67; RESP 15; O2SAT 97
== END 2018-05-19 15:26 | disposition home or self-care (01) ==
PROVIDERS: Emergency Provider Emergency Medicine; Family Provider Family Medicine; PCP Family Medicine
DX: R39.11 Hesitancy of micturition (principal); R30.0 Dysuria; I25.10 Atherosclerotic heart disease of native coronary artery without angina pectoris; I25.2 Old myocardial infarction; J44.9 Chronic obstructive pulmonary disease, unspecified; Z86.73 Personal history of transient ischemic attack (TIA), and cerebral infarction without residual deficits; Z95.1 Presence of aortocoronary bypass graft; Z72.0 Tobacco use
CPT/HCPCS: 51702; 80048; 81001; 85025; 99284; A4216

== ENCOUNTER 2018-09-08 12:28 | Inpatient (IN) | payer MEDICAID, SELFPAY ==
[2018-09-08] VITALS (8 sets, daily range): BP systolic 119–143; BP diastolic 65–87; PULSE 83–99; RESP 15–20; TEMP 36.6–37.2; O2SAT 96–100; BMI 18.8; BMI 22.4
--- NOTE | 2018-09-08 12:48 | ED.VIS.GEN ---
History of Present Illness Chief Complaint: Complaint Informant: Patient Onset: Today - Dysuria and hematuria, Weeks - Dribbling and urgency Context: Sudden Onset Timing: Intermittent Quality: Dysuria with hematuria today Location: Current Severity: Mild Maximum Severity: Moderate Worsened by: Nothing per patient Relieved by: Nothing per patient Associated Symptoms: Urgency and dribbling for weeks to months Narrative: Patient is an elderly male who was seen May 19 and referred to urologist. He states he never followed up. He states that his ex- does not keep on him he does not follow-up or do things he supposed to. He denies fever, chills night sweats. He denies nausea vomiting. Denies weight gain or weight loss. He does not know if he has an enlarged prostate. He is not on an anticoagulant. He denies bruising easily. He denies rash. He does complain of suprapubic abdominal discomfort. Prior similar symptoms: Yes Recent Illness/Hospitalization: Yes - April 2018 - Past Medical History (1) Atherosclerotic heart disease of [place] coronary artery without angina pectoris Status: Chronic (2) COPD (chronic obstructive pulmonary disease) Status: Chronic (3) ETOH abuse Status: Chronic (4) HLD (hyperlipidemia) Status: Chronic (5) HTN (hypertension) Status: Chronic (6) History of TIA (transient ischemic attack) Status: Chronic (7) Illicit drug use Status: Chronic (8) Obstructive sleep apnea Status: Chronic (9) PAD (peripheral artery disease) Status: Chronic (10) Raynaud's syndrome Status: Chronic Past Medical History - Allergies and Home Meds Allergies/Adverse Reactions: Allergies No Known Allergies Allergy (Verified 09/08/18 12:32) Primary Care Physician: Kenn Parra MD [Primary Care Provider] - Prior records reviewed: Yes - Prior ER visit Surgical History: appendectomy, coronary bypass surgery, tonsillectomy, - - appendix out, cabg , tonsils out, eye surgery, heart stent before surgery. Lives: Alone Smoking Status: Current every day smoker Alcohol: Rare Drugs: - - Old records illicit drug use - Family History Maternal Family History: Family History (Last Reviewed 04/04/18 @ 10:46 by Eboni Jacinto) Father Cancer Mother Murder Brother Colon cancer Brother Diabetes Brother Diabetes Brother Diabetes Sister Diabetes Family History: Reports: - - Patient reports that her mother was murdered Paternal Family History: Family History (Last Reviewed 04/04/18 @ 10:46 by Eboni Jacinto) Father Cancer Mother Murder Brother Colon cancer Brother Diabetes Brother Diabetes Brother Diabetes Sister Diabetes Family History: Reports: Cancer, - - lung cancer Sibling Family History: Family History (Last Reviewed 04/04/18 @ 10:46 by Eboni Jacinto) Father Cancer Mother Murder Brother Colon cancer Brother Diabetes Brother Diabetes Brother Diabetes Sister Diabetes Family History: Reports: Diabetes Review of Systems General: Denies: Chills, Fever, Malaise, Sweats, Weight loss Eyes: Denies: Visual changes - bilaterally, Blurred Vision - bilaterally ENT: Denies: Rhinorrhea, Sore throat Cardiovascular: Denies: Chest pain, Palpitations Respiratory: Reports: Cough - Cough is chronic. Denies: Dyspnea, Sputum, Dyspnea on exertion Gastrointestinal: Reports: Abdominal pain - Localized to the suprapubic region. Denies: Nausea, Vomiting, Diarrhea, Melena, Hematochezia Genitourinary: Reports: Dysuria, Hematuria, Frequency Musculoskeletal: Denies: Myalgias, Arthralgias, Neck pain, Back pain, Swelling Skin: Denies: Rash, Wounds Neurological: Denies: Headache, Weakness, Parasthesia Hematologic: Denies: Easy bruising, Easy bleeding Allergy: Denies: Uticaria Physical Exam Vital Signs/Narrative: Vital Signs Temp Pulse Resp BP Pulse Ox 09/08/18 12:29 97.9 F 94 15 119/87 H 100 Inital Vital Signs reviewed: Yes General: Well nourished, Well developed, No Acute Distress Head: Normocephalic, Atraumatic Eyes: Perrl, EOMI. Negative for: Pale conjunctiva, Scleral icterus ENT: Negative for: Moist mucous membranes, No rhinorrhea, TM's clear Neck: Negative for: Supple, Nontender, No lymphadenopathy, No JVD Cardiovascular: Regular rate, Regular rhythm, No murmurs, Normal S1, Normal S2 Respiratory: No distress, Decreased Air Movement Abdomen: Soft, No masses, Tender - Pubic region. Negative for: Nontender, Nondistended, Normal bowel sounds Rectal: Nontender, - - State is enlarged. Prostate is not warm or boggy. There is no irregularities noted. Back: Nontender, Normal Inspection Extremities: Nontender, No edema Skin: Normal color, No rash. Negative for: Cyanosis, Diaphoresis, Jaundice Neurological: Alert, Oriented x3, Cranial nerves II-XII grossly intact, Normal Strength, Normal Sensation Psychological: Normal affect, Normal Mood Diagnostic/Tx/Re-eval Laboratory Results 09/08/18 09/08/18 09/08/18 12:50 12:50 13:15 WBC RBC Hgb Hct MCV MCH MCHC RDW RDW Differential Plt Count MPV Immature Gran % (Auto) Neut % (Auto) Lymph % (Auto) Dougherty % (Auto) Eos % (Auto) Baso % (Auto) Absolute Neuts (auto) Absolute Lymphs (auto) Total Counted Sodium 124 L Potassium 4.2 Chloride 92 L Carbon Dioxide 21.0 Anion Gap 11 BUN 4 L Creatinine 0.70 Estim Creat Clear Calc 95.02 Est GFR (MDRD) Af Amer 146 Est GFR (MDRD) Non-Af 120 BUN/Creatinine Ratio 5.7 L Glucose 79 Serum Osmolality Calcium 8.9 TSH 1.77 Urine Color Brown Urine Clarity Cloudy Urine pH 6.5 Ur Specific [place] 1.010 Urine Protein 500 H Urine Glucose (UA) Normal Urine Ketones 5 H Urine Occult Blood 250 H Urine Nitrite Positive H Urine Bilirubin Negative Urine Urobilinogen 1 H Ur Leukocyte Esterase 500 H Urine RBC 25-50 SEEN Urine WBC 25-50 SEEN Ur Squamous Epith Cells 0 SEEN Urine Bacteria 1+ Urine Mucus 0 SEEN Urine Osmolality 09/08/18 09/08/18 09/08/18 13:50 14:00 14:15 WBC 11.3 H RBC 3.64 L Hgb 11.7 L Hct 32.8 L MCV 90.1 MCH 32.1 H MCHC 35.7 RDW 14.1 RDW Differential 47.3 H Plt Count 208 MPV 8.6 Immature Gran % (Auto) 0.200 Neut % (Auto) 76.3 H Lymph % (Auto) 10.6 L Dougherty % (Auto) 12.5 H Eos % (Auto) 0.2 Baso % (Auto) 0.2 Absolute Neuts (auto) 8.6 H Absolute Lymphs (auto) 1.20 Total Counted Not Reportable Sodium Potassium Chloride Carbon Dioxide Anion Gap BUN Creatinine Estim Creat Clear Calc Est GFR (MDRD) Af Amer Est GFR (MDRD) Non-Af BUN/Creatinine Ratio Glucose Serum Osmolality 250 L Calcium TSH Urine Color Urine Clarity Urine pH Ur Specific [place] Urine Protein Urine Glucose (UA) Urine Ketones Urine Occult Blood Urine Nitrite Urine Bilirubin Urine Urobilinogen Ur Leukocyte Esterase Urine RBC Urine WBC Ur Squamous Epith Cells Urine Bacteria Urine Mucus Urine Osmolality 149 - Medical Decision Making With significant tenderness in the suprapubic region concern regarding urinary retention. Bladder scan was ordered. Because this is been going on months and he has enlarged prostate BMP was obtained to assess renal function and electrolytes. UA was obtained to assess for evidence of infection since he reports dysuria. Patient had incomplete voiding of bladder. March was placed. Gross hematuria noted. Will place three-way for irrigation. Since patient is hyponatremic and is on no diuretic will obtain urine osmolarity and evaluate for SIADH. The chronicity is unknown. Since urine is consistent with infection urine culture was sent. He received 1 g of Rocephin. CBC was added to assess white count as well as H&H since he has gross hematuria. Patient urine osmolarity is 149 which is low. This raises concern for SIADH. Urologist was paged because patient has gross hematuria and will consult hospitalist for admission for work-up of his gross hematuria, UTI and hyponatremia. The hyponatremia may be secondary to alcohol consumption. Patient does not have 2 of the 5 Sirs criteria therefore he does not have sepsis and reason lactate and blood cultures were not ordered. ED Disposition - Plan for ED Patient: Disposition: Acute Care Hospital [facility] Diagnosis: Hyponatremia with decreased serum osmolality, Urinary tract infection, Gross hematuria, BPH (benign prostatic hyperplasia), Urinary retention due to benign prostatic hyperplasia Referrals: Kenn Parra MD [Primary Care Provider] -
[2018-09-08 13:13] LABS: BUN 4 mg/dL (7-18); EST Glomerular Filtration Rate 120 mL/min (>60); Estimated Creatinine Clearance 95.02 ml/min; Glucose 79 mg/dL (74-106)
[2018-09-08 13:14] LABS: Anion Gap 11 (5-15); BUN/Creat Ratio 5.7 RATIO (10-20); Calcium,Total 8.9 mg/dL (8.5-10.1); Chloride 92 mmol/L (98-107); Est Glom Filt Rate - Afr Amer 146 mL/min (>60); Potassium 4.2 mmol/L (3.5-5.1); Sodium Level 124 mmol/L (136-145)
[2018-09-08 13:21] LABS: Mucous, Urine 0 SEEN /hpf (<or=2+); Squamous Epithelial Cells - UA 0 SEEN /hpf (0-5)
[2018-09-08 13:24] LABS: Color, Urine Brown (Yellow); Glucose, Dipstick Normal (Normal); Ketone-Dipstick 5 mg/dl (Negative); Leukocyte Esterase-Dipstick 500 /ul (Negative); Nitrite-Dipstick Positive (Negative); Occult Blood-Urine 250 /ul (Negative); Protein-Dipstick 500 mg/dl (Negative); Urine Bilirubin Dipstick Negative (Negative); Urine Clarity Cloudy (Clear); Urine Urobilinogen 1 mg/dl (Normal); Urine pH 6.5 (5.0 - 8.0)
[2018-09-08 13:49] LABS: Red Blood Cells-Urine 25-50 SEEN /hpf (0-5); White Blood Cells 25-50 SEEN /hpf (0-5)
[2018-09-08 13:50] LABS: Bacteria 1+ /hpf (None Seen)
[2018-09-08] MEDS: 0.9% Normal Saline 1,000 ML 999 ML IV (13:52)
[2018-09-08 14:13] LABS: Thyroid Stim Hormone (TSH) 1.77 uIU/mL (0.358-3.74)
[2018-09-08] MEDS: Ceftriaxone 1 GM/50 ML BAG IV (14:25)
[2018-09-08 14:26] LABS: Osmolality, Urine 149 mOsm/KG
[2018-09-08 14:37] LABS: Absolute Neutrophil Count 8.6 X10^3/uL (2.0-7.7); Basophil# 0.02 X10^3/uL; Basophil% 0.2 % (0-1); Eosinophil# 0.02 X10^3/uL; Eosinophils% 0.2 % (0-5); Hematocrit 32.8 % (40-54); Hemoglobin 11.7 g/dl (13.0-16.5); Lymphocyte % 10.6 % (19-41); Mean Corp Hgb Conc 35.7 g/gl (32-36); Mean Corpuscular Hgb 32.1 pg (27.0-32.0); Mean Corpuscular Volume 90.1 fL (80-94); Mean Platelet Vol. 8.6 fl (6.2-12.0); Monocyte# 1.41 X10^3/uL; Monocyte% 12.5 % (0-10); Neutrophil % 76.3 % (47-70); Platelet Count 208 K/mm3 (150-450); RBC Distribution Width CV 14.1 % (11.6-14.6); RBC Distribution Width SD 47.3 fl (35.1-43.9); Red Blood Count 3.64 M/mm3 (4.6-6.2); White Blood Count 11.3 K/mm3 (4.4-11.0)
[2018-09-08 14:43] LABS: Osmolality, Serum 250 mOsm/KG (280-301)
[2018-09-08 14:44] LABS: POSITIVE COUNT NO; POSITIVE DIFFERENTIAL NO; POSITIVE MORPHOLOGY NO
--- NOTE | 2018-09-08 15:14 | ED.RN ---
PATIENT REQUESTING PAIN MEDICATION, DR. SALES MADE AWARE.
[2018-09-08] MEDS: Morphine 4 MG/ML Syringe IV (15:18)
[2018-09-08] MEDS: Ondansetron 4 MG/2 ML Vial IV (15:18)
--- NOTE | 2018-09-08 15:35 | PCM.HP.STD ---
Problem List (1) Hyponatremia with decreased serum osmolality Status: Acute (2) Urinary tract infection Status: Acute (3) Gross hematuria Status: Acute (4) Obstructive sleep apnea Status: Chronic (5) PAD (peripheral artery disease) Status: Chronic (6) S/P CABG x 4 Status: Chronic Comment: HOFFMAN to LAD, SVG to 1st Diagonal, SVG to 1st OM, SVG to Right PDA, Done @ [facility]. (7) Atherosclerotic heart disease of [place] coronary artery without angina pectoris Status: Chronic (8) ETOH abuse Status: Chronic (9) HTN (hypertension) Status: Chronic (10) HLD (hyperlipidemia) Status: Chronic History of Present Illness Date of Admission: 09/08/18 Chief Complaint: Bloody urine, suprapubic pain. The patient is a 63 year old M with past medical history as mentioned above presented to the emergency room because of bloody urine and suprapubic pain. His symptoms started this morning with bloody urine, claudia bright red blood was dribbling from his urethra, painful, associated with suprapubic pain. He complained of suprapubic pain which started at the same time with the hematuria, described as sharp needles, 10 out of 10 in severity, not radiating, aggravated by pushing down to urinate and urination, and no other associated symptoms. He reported subjective fever at home but is not sure because he does not have a thermometer at home. In the emergency department, his vital signs were stable. His routine blood work was remarkable for mild leukocytosis, hemoglobin of 11.7 g/dL, sodium was 124. Urinalysis revealed cloudy urine, high occult blood, positive for nitrite and leukocyte esterase, there was 25-50 WBCs and 1+ bacteria. He is being admitted for gross hematuria, probable acute cystitis and hyponatremia. Past Medical History Past Medical History (Chronic Problems): Chronic Problems (Last Updated 09/08/18 @ 15:49 by Shital May MD) Raynaud's syndrome (Chronic) History of TIA (transient ischemic attack) (Chronic) Obstructive sleep apnea (Chronic) PAD (peripheral artery disease) (Chronic) S/P CABG x 4 (Chronic ~2008) HOFFMAN to LAD, SVG to 1st Diagonal, SVG to 1st OM, SVG to Right PDA, Done @ [facility]. COPD (chronic obstructive pulmonary disease) (Chronic) History of non-ST elevation myocardial infarction (NSTEMI) (Chronic 03/22/18) Atherosclerotic heart disease of [place] coronary artery without angina pectoris (Chronic) Illicit drug use (Chronic) ETOH abuse (Chronic) HTN (hypertension) (Chronic) HLD (hyperlipidemia) (Chronic) Medical History: Medical History (Last Updated 09/08/18 @ 15:49 by Shital May MD) Raynaud's syndrome (Chronic) I73.00 History of TIA (transient ischemic attack) (Chronic) Z86.73 Obstructive sleep apnea (Chronic) G47.33 PAD (peripheral artery disease) (Chronic) I73.9 COPD (chronic obstructive pulmonary disease) (Chronic) J44.9 History of non-ST elevation myocardial infarction (NSTEMI) (Chronic) Onset Date: 03/22/18 I25.2 Atherosclerotic heart disease of [place] coronary artery without angina pectoris (Chronic) I25.10 Illicit drug use (Chronic) F19.90 ETOH abuse (Chronic) F10.10 HTN (hypertension) (Chronic) I10 HLD (hyperlipidemia) (Chronic) E78.5 Allergies No Known Allergies Allergy (Verified 09/08/18 12:32) Home Medications: Ambulatory Orders Medication Instructions Recorded Albuterol Inhaler [Ventolin Hfa] 2 puff INHALATION Q4H PRN PRN 07/12/17 Fluticasone/Vilanterol [Breo 1 ea IH DAILY 07/12/17 Ellipta 200-25 Mcg INH] Gabapentin [Neurontin] 300 mg PO TIDCM 07/12/17 NIFEdipine [Procardia XL] 90 mg PO DAILY 07/12/17 Nitroglycerin (INPATIENT USE) 0.4 mg SUBLINGUAL Q5M PRN 07/12/17 [Nitrostat] Omeprazole [Prilosec] 20 mg PO DAILY 07/12/17 Isosorbide Mononitrate [Isosorbide 30 mg PO DAILY 03/21/18 Mononitrate ER] Aspirin [Aspir-Low] 81 mg PO DAILY 09/08/18 Atorvastatin Calcium [Lipitor] 40 mg PO QHS 09/08/18 Clopidogrel Bisulfate [Plavix] 75 mg PO DAILY 09/08/18 Fluoxetine HCl 20 mg PO DAILY 09/08/18 Metoprolol Tartrate [Lopressor 25 mg PO BID 09/08/18 (beta sascha)] Surgical History: Surgical History (Last Reviewed 04/04/18 @ 10:46 by Eboni Jacinto) S/P CABG x 4 (Chronic) Onset Date: ~2008 Z95.1 HOFFMAN to LAD, SVG to 1st Diagonal, SVG to 1st OM, SVG to Right PDA, Done @ [facility]. History of appendectomy Z90.49 History of tonsillectomy Z90.89 Surgical History: appendectomy, coronary bypass surgery, tonsillectomy, - - appendix out, cabg , tonsils out, eye surgery, heart stent before surgery. Lives: Alone Smoking Status: Current every day smoker Alcohol: Heavy Drugs: - - Old records illicit drug use - *Family History Maternal Family History: Family History (Last Reviewed 04/04/18 @ 10:46 by Eboni Jacinto) Father Cancer Mother Murder Brother Colon cancer Brother Diabetes Brother Diabetes Brother Diabetes Sister Diabetes History Items: - - Patient reports that her mother was murdered Paternal Family History: Family History (Last Reviewed 04/04/18 @ 10:46 by Eboni Jacinto) Father Cancer Mother Murder Brother Colon cancer Brother Diabetes Brother Diabetes Brother Diabetes Sister Diabetes History Items: Cancer, - - lung cancer Sibling Family History: Family History (Last Reviewed 04/04/18 @ 10:46 by Eboni Jacinto) Father Cancer Mother Murder Brother Colon cancer Brother Diabetes Brother Diabetes Brother Diabetes Sister Diabetes History Items: Diabetes Review of Systems Constitutional: Denies: Anorexia, Chills, Fever, Weakness Eyes: Denies: Blurred vision, Double vision, Drainage, Redness HEENT: Denies: Difficulty Hearing, Ear Pain, Eye Pain, Nasal Congestion, Sore Throat Cardiovascular: Denies: Chest Pain, Chest Pressure, Chest Tightness, Edema, Palpitations, Syncope Respiratory: Reports: Cough. Denies: Pleuritic Pain, Shortness of Breath, Sputum production, Wheezing Gastrointestinal: Reports: Abdominal Pain. Denies: Constipation, Diarrhea, Nausea, Vomiting Genitourinary: Reports: Dysuria, Hematuria, Retention Musculoskeletal: Denies: Arm Pain, Back Pain, Foot Pain Skin: Denies: Dryness, Rash Neurological: Denies: Balance problems, Double vision, Change in Speech, Slurred speech, Confusion, Headaches, Incoordination, Numbness Psychiatric: Denies: Anxiety, Depression Endocrine: Denies: Change in Body Habitus, Polydipsia VTE Information - Inpt Only VTE Present on Admission: No VTE Mechan Device Prophylaxis: SCD's VTE Pharm Prophylaxis ordered?: No Patient Problems: Active and Suspected Problems (Last Updated 09/08/18 @ 15:49 by Shital May MD) Hyponatremia with decreased serum osmolality (Acute) Urinary tract infection (Acute) Gross hematuria (Acute) - Physical Exam General: Alert, Oriented x3, Cooperative, No apparent distress HEENT: Atraumatic, PERRLA, EOMI, Normocephalic Oral: Moist Mucosa, No Gingival or Mucosal Lesions/ Ulcerations Neck: Supple, No JVD, Negative Carotid Bruits, Trachea Midline, Thyroid Normal Size and Texture Lungs: Clear to auscultation, No rhonchi, No wheeze, No rales, Diminished Cardiovascular: Regular rate, Regular Rhythm, Normal S1, Normal S2, PMI Normal Abdomen: Bowel Sounds Present, Soft, Non-Distended, No Hepato-splenomegaly, Tender - Suprapubic tenderness. Extremities: No clubbing, No cyanosis, No edema Skin: No rashes, No breakdown Lymphatic: No Cervical, Supraclavicular, or Inguinal Adenopathy Neurological: Cranial nerves II-XII grossly intact, Motor Exam 5/5 strength throughout Psych/Mental Status: Normal Affect, Appropriate, Alert and oriented to time, place, person, mood and affect Vital Signs Temp Pulse Resp BP Pulse Ox 97.9 F 91 16 143/83 H 98 09/08/18 12:29 09/08/18 15:13 09/08/18 15:13 09/08/18 15:13 09/08/18 15:13 Oxygen Delivery Method Room Air Weight: 135 lb 5.821 oz Body Mass Index (BMI) 18.8 Intake and Output for Last 24 Hours 09/06/18 09/07/18 09/08/18 23:59 23:59 23:59 Output Total 1205 / 1205 Balance -1205 / -1205 Laboratory Tests Past 24 Hrs 09/08/18 09/08/18 09/08/18 12:50 12:50 13:15 WBC RBC Hgb Hct MCV MCH MCHC RDW RDW Differential Plt Count MPV Immature Gran % (Auto) Neut % (Auto) Lymph % (Auto) Dukes % (Auto) Eos % (Auto) Baso % (Auto) Absolute Neuts (auto) Absolute Lymphs (auto) Total Counted Sodium 124 L Potassium 4.2 Chloride 92 L Carbon Dioxide 21.0 Anion Gap 11 BUN 4 L Creatinine 0.70 Estim Creat Clear Calc 95.02 Est GFR (MDRD) Af Amer 146 Est GFR (MDRD) Non-Af 120 BUN/Creatinine Ratio 5.7 L Glucose 79 Serum Osmolality Calcium 8.9 TSH 1.77 Cortisol Urine Color Brown Urine Clarity Cloudy Urine pH 6.5 Ur Specific [place] 1.010 Urine Protein 500 H Urine Glucose (UA) Normal Urine Ketones 5 H Urine Occult Blood 250 H Urine Nitrite Positive H Urine Bilirubin Negative Urine Urobilinogen 1 H Ur Leukocyte Esterase 500 H Urine RBC 25-50 SEEN Urine WBC 25-50 SEEN Ur Squamous Epith Cells 0 SEEN Urine Bacteria 1+ Urine Mucus 0 SEEN Urine Osmolality 09/08/18 09/08/18 09/08/18 13:50 13:50 14:00 WBC RBC Hgb Hct MCV MCH MCHC RDW RDW Differential Plt Count MPV Immature Gran % (Auto) Neut % (Auto) Lymph % (Auto) Dukes % (Auto) Eos % (Auto) Baso % (Auto) Absolute Neuts (auto) Absolute Lymphs (auto) Total Counted Sodium Potassium Chloride Carbon Dioxide Anion Gap BUN Creatinine Estim Creat Clear Calc Est GFR (MDRD) Af Amer Est GFR (MDRD) Non-Af BUN/Creatinine Ratio Glucose Serum Osmolality 250 L Calcium TSH Cortisol 31.00 H Urine Color Urine Clarity Urine pH Ur Specific [place] Urine Protein Urine Glucose (UA) Urine Ketones Urine Occult Blood Urine Nitrite Urine Bilirubin Urine Urobilinogen Ur Leukocyte Esterase Urine RBC Urine WBC Ur Squamous Epith Cells Urine Bacteria Urine Mucus Urine Osmolality 149 09/08/18 14:15 WBC 11.3 H RBC 3.64 L Hgb 11.7 L Hct 32.8 L MCV 90.1 MCH 32.1 H MCHC 35.7 RDW 14.1 RDW Differential 47.3 H Plt Count 208 MPV 8.6 Immature Gran % (Auto) 0.200 Neut % (Auto) 76.3 H Lymph % (Auto) 10.6 L Dukes % (Auto) 12.5 H Eos % (Auto) 0.2 Baso % (Auto) 0.2 Absolute Neuts (auto) 8.6 H Absolute Lymphs (auto) 1.20 Total Counted Not Reportable Sodium Potassium Chloride Carbon Dioxide Anion Gap BUN Creatinine Estim Creat Clear Calc Est GFR (MDRD) Af Amer Est GFR (MDRD) Non-Af BUN/Creatinine Ratio Glucose Serum Osmolality Calcium TSH Cortisol Urine Color Urine Clarity Urine pH Ur Specific [place] Urine Protein Urine Glucose (UA) Urine Ketones Urine Occult Blood Urine Nitrite Urine Bilirubin Urine Urobilinogen Ur Leukocyte Esterase Urine RBC Urine WBC Ur Squamous Epith Cells Urine Bacteria Urine Mucus Urine Osmolality Assessment/Plan All Active Problems (Last Updated 09/08/18 @ 15:49 by Shital May MD) Hyponatremia with decreased serum osmolality (Acute) Urinary tract infection (Acute) Gross hematuria (Acute) This is a 61 years old male patient presented to the emergency room because of hematuria and suprapubic pain, found to have findings consistent with probable acute cystitis and also found to have hyponatremia and he is being admitted for evaluation and treatment. #1 hematuria/probable acute cystitis: No obvious etiology for the hematuria, patient has been on aspirin and Plavix. Urinalysis reviewed. Vital signs are stable. Hemoglobin and hematocrit as well as platelet count are normal. Plan: Admit to [facility] floor, telemetry, IV fluids, urine culture, start IV Rocephin, urology consult, IV morphine PRN, Tylenol as needed, pro time and INR, H&H every 12 hours x3, transfuse if hemoglobin less than 8 g/dL, repeat CBC and BMP tomorrow morning, PT OT evaluation and treatment. #2 hyponatremia: Serum osmolality is low, urine osmole it is more than 100 and patient is euvolemic. Urine sodium was not done. TSH was normal, serum cortisol was 31 which is elevated. This hyponatremia could be due to chronic liver disease secondary to alcohol abuse. Since cortisol is elevated, adrenal insufficiency is unlikely. Plan: Check urine sodium, IV fluids with normal saline for now, repeat serum cortisol tomorrow morning. If serum sodium is more than 40 mmol/L, this would be consistent with SIADH and will start fluid restriction to less than 800 cc daily. #3 CAD status post CABG and stents: According to the patient, he had stents placed back in 2006. Denies any chest pain or shortness of breath. Hold aspirin and Plavix, continue statins, nitrate and beta blockers. #4 hypertension: Blood pressure stable, continue nitrate and metoprolol as well as Procardia. #5 COPD: Clinically stable, plan for albuterol as needed, O2 by nasal cannula to keep O2 saturation more than 92%. #6 alcohol abuse: Without evidence of acute alcohol withdrawal. Will check blood ethanol level, folic acid and thiamine supplement. #7 history of illicit drug use: We will do a urine drug screen. #8 peripheral vascular disease: Stable, continue statins, hold aspirin and Plavix as above. #9 DVT prophylaxis: SCDs. No chemical prophylaxis because of hematuria. This note was generated with Captual dictation software. It may contain incorrect words, spelling, and punctuation that were not noted in checking the note before signing. Code Visit Inpatient E&M: 50744 Init Hosp L3
--- NOTE | 2018-09-08 15:57 | CASEMGMT ---
RN CM Assessment Introduced role of RN CM to patient.? Patient is alert, oriented and able?to participate in RN CM Assessment. ?Care providers, pharmacy, and demographics verified. Presentation: Hematuria Admit Dx: Hematuria, UTI, Hyponatremia Re-Admit: No, ER 05/19/18 for Inability to urinate- was referred to Uro Barriers/Issues: Patient never f/u with Urology after being referred on ER visit 05/19/18. Patient lives alone in a 2nd floor apartment in which he has to take multiple stairs up, has been feeling weak, States last fall x2 months ao but did fall three times in close proximity to each other. CM discussed possibility to put in for a LL apartment- patient states does not want people living above him as they are noisy and can't handle that, discussed alternative living at another complex that has elevator access- states that his dtr has plan to find a place and have patient live with her. States has not seen PCP in awhile, states when he sees PCP-he always wants to refer him to specialist that are far-like in [place]. Per ER MD note, Hyponatremia may be secondary to Alcohol Consumption. PCP: Kenn Parra Specialists: Opth- Dr Geiger, Surgeon performed heart surgery-does not remember name. Preferred Pharmacy: [facility] [place] Insurance: [employer] Rx Benefit: Yes? LNOK: Dtr Constance Tavera LW/HPOA: No, Would like Information Living Arrangements:?Lives alone in a 2nd fl apartment with 19 stairs to get to apartment. ADL?s: Independent with ambulation and ADL's. States has been difficult recently for him to ambulate far distances, states cannot even walk 100ft without difficulty. Transportation: Dtr transports and will drive on DC. CM to possibly discuss Transportation through Insurance [employer] for appointments if PCP does refer out further for patient. DME: None. Patient open to walker if recommended, No preference on Company, does state he would have to s/w Dtr about DC planning needs. CM did discuss purchasing OTC Rollator so that he has an option to sit down if becomes fatigued or dizzy while walking to prevent falls. HHC: None, Patient states open to HH PT if recommended, no preference on Agency, aware Agency would have to be In Network SNF: None, States would have to s/w Dtr if SNF was recommended. Goal: Home, Open to HH PT or Walker if needed. DC PLAN: Home with HH PT and/or walker. Milton Vieira RNCM
--- NOTE | 2018-09-08 16:40 | RAD_ITS ---
STUDY: X-RAY CHEST REASON FOR EXAM: Male, 63 years old. Cough. TECHNIQUE: Two portable views of the chest. COMPARISON: March 21, 2018. FINDINGS: senior art director leads are present. There is hyperinflation of the lungs consistent with chronic obstructive lung disease (COPD). There is no demonstrated pleural abnormality. Normal size heart. Normal mediastinum and clinton. Normal visualized pulmonary arteries. Normal visualized aortic arch and descending thoracic aorta. Normal visualized thoracic spine. Normal visualized ribs, clavicles, and shoulders. There is no demonstrated abnormality of the visualized soft tissue structures of the upper abdomen. RAD/Chest 1 View (Portable) IMPRESSION: COPD without radiographic evidence of acute cardiopulmonary disease. Electronically Signed: Kathleen Harris MD at 20:58 EDT , Service support ,
[2018-09-08 16:55] LABS: Hematocrit 33.7 % (40-54); Hemoglobin 11.8 g/dl (13.0-16.5)
[2018-09-08 17:11] LABS: Prothrombin Time (Protime)PT. 12.9 SECONDS (11.7-14.9)
[2018-09-08] MEDS: 0.9% Normal Saline 1,000 ML 100 ML IV (17:22)
[2018-09-08] MEDS: Acetaminophen 325 MG Tablet 650 MG PO (17:26)
[2018-09-08] MEDS: Gabapentin 300 MG Capsule PO (17:26)
[2018-09-08 17:36] LABS: Amphetamine Urine VISTA NEGATIVE (<1000 ng/mL); Barbiturate Urine VISTA NEGATIVE (< 200 ng/mL); Benzodiazepine Urine VISTA NEGATIVE (< 200 ng/mL); Cocaine Urine VISTA NEGATIVE (< 300 ng/mL); Ecstacy Urine VISTA NEGATIVE (< 500 ng/mL); Methadone Urine VISTA NEGATIVE (< 300 ng/mL); PCP Urine VISTA NEGATIVE (< 25 ng/mL); THC Urine VISTA POSITIVE (< 50 ng/mL); Vista UDS pH Range 7
[2018-09-08 18:24] LABS: Urine Sodium 104 mmol/L (Not Establ.)
[2018-09-08 18:25] LABS: Urine Chloride 90 mmol/L (Not Establ.)
[2018-09-08 18:34] LABS: Creatinine, Urine (random) < 13.00 mg/dL (NO RANGE EST.)
[2018-09-08] MEDS: Morphine 2 MG/ML Syringe IV (21:18)
[2018-09-08] MEDS: Metoprolol Tartrate 25 MG Tablet PO (21:19)
[2018-09-08] MEDS: Atorvastatin Calcium 40 MG Tablet PO (21:20)
[2018-09-09] VITALS (11 sets, daily range): BP systolic 92–147; BP diastolic 44–73; PULSE 69–94; RESP 16–18; TEMP 36.6–37; O2SAT 98–100
[2018-09-09 07:35] LABS: Absolute Lymphocyte Count 1.36 X10^3/ul (0.83-4.51); Absolute Neutrophil Count 5.3 X10^3/uL (2.0-7.7); Basophil# 0.02 X10^3/uL; Basophil% 0.3 % (0-1); Eosinophil# 0.04 X10^3/uL; Eosinophils% 0.5 % (0-5); Hematocrit 29.3 % (40-54); Hemoglobin 10.3 g/dl (13.0-16.5); Lymphocyte # 1.36 X10^3/ul (4.0); Lymphocyte % 17.6 % (19-41); Mean Corp Hgb Conc 35.2 g/gl (32-36); Mean Corpuscular Hgb 32.2 pg (27.0-32.0); Mean Corpuscular Volume 91.6 fL (80-94); Mean Platelet Vol. 9.5 fl (6.2-12.0); Monocyte# 0.99 X10^3/uL; Monocyte% 12.8 % (0-10); Neutrophil # 5.28 X10^3/uL (2.7-7.7); Neutrophil % 68.5 % (47-70); Platelet Count 218 K/mm3 (150-450); RBC Distribution Width SD 45.3 fl (35.1-43.9); White Blood Count 7.7 K/mm3 (4.4-11.0)
[2018-09-09 07:36] LABS: POSITIVE COUNT NO; POSITIVE DIFFERENTIAL NO; POSITIVE MORPHOLOGY NO
[2018-09-09 07:49] LABS: Anion Gap 6 (5-15); BUN 10 mg/dL (7-18); BUN/Creat Ratio 16.6 RATIO (10-20); Calcium,Total 8.4 mg/dL (8.5-10.1); Chloride 100 mmol/L (98-107); EST Glomerular Filtration Rate 144 mL/min (>60); Est Glom Filt Rate - Afr Amer 174 mL/min (>60); Estimated Creatinine Clearance 131.44 ml/min; Glucose 93 mg/dL (74-106); Potassium 4.1 mmol/L (3.5-5.1); Sodium Level 130 mmol/L (136-145)
[2018-09-09] MEDS: Morphine 2 MG/ML Syringe IV ×2 (08:16→15:46)
[2018-09-09] MEDS: Pantoprazole Sodium 20 MG Tablet PO (08:16)
--- NOTE | 2018-09-09 09:06 | PCM.PROGNOTE ---
Patient Problems: Active and Suspected Problems (Last Updated 09/08/18 @ 15:49 by Shital May MD) Hyponatremia with decreased serum osmolality (Acute) Urinary tract infection (Acute) Gross hematuria (Acute) Subjective: Chief complaint: Follow-up after admission for gross hematuria, probable acute cystitis and hyponatremia. Patient seen and examined. No acute events overnight. He still having claudia blood in the urine bag. Suprapubic pain still clear but slightly improved. Denies fever chills. His vital signs are stable. - Physical Exam General: Alert, Oriented x3, Cooperative, No apparent distress HEENT: Atraumatic, PERRLA, EOMI, Normocephalic Oral: Moist Mucosa, No Gingival or Mucosal Lesions/ Ulcerations Neck: Supple, No JVD, Negative Carotid Bruits, Trachea Midline, Thyroid Normal Size and Texture Lungs: Clear to auscultation, No wheeze, No rales, Diminished, Rhonchi Cardiovascular: Regular rate, Regular Rhythm, Normal S1, Normal S2, PMI Normal Abdomen: Bowel Sounds Present, Soft, Non-Distended, No Hepato-splenomegaly, Tender - Suprapubic tenderness. Extremities: No clubbing, No cyanosis, No edema Skin: No rashes, No breakdown Lymphatic: No Cervical, Supraclavicular, or Inguinal Adenopathy Neurological: Cranial nerves II-XII grossly intact, Neuro grossly intact Psych/Mental Status: Normal Affect, Appropriate, Alert and oriented to time, place, person, mood and affect Vital Signs Temp Pulse Resp BP Pulse Ox 97.8 F 75 16 141/72 H 99 09/09/18 08:04 09/09/18 08:04 09/09/18 08:04 09/09/18 08:04 09/09/18 08:10 Oxygen Delivery Method Room Air Weight: 160 lb 7.944 oz Body Mass Index (BMI) 22.4 Intake and Output for Last 24 Hours 09/07/18 09/08/18 09/09/18 23:59 23:59 23:59 Intake Total 307 / 307 800 / 800 Output Total 2305 / 2305 550 / 550 Balance -1997 / 250 / 250 Laboratory Tests Past 24 Hrs 09/08/18 09/08/18 09/08/18 12:50 12:50 13:15 WBC RBC Hgb Hct MCV MCH MCHC RDW RDW Differential Plt Count MPV Immature Gran % (Auto) Neut % (Auto) Lymph % (Auto) Tyrrell % (Auto) Eos % (Auto) Baso % (Auto) Absolute Neuts (auto) Absolute Lymphs (auto) Total Counted PT INR Sodium 124 L Potassium 4.2 Chloride 92 L Carbon Dioxide 21.0 Anion Gap 11 BUN 4 L Creatinine 0.70 Estim Creat Clear Calc 95.02 Est GFR (MDRD) Af Amer 146 Est GFR (MDRD) Non-Af 120 BUN/Creatinine Ratio 5.7 L Glucose 79 Serum Osmolality Calcium 8.9 TSH 1.77 Cortisol Urine Color Brown Urine Clarity Cloudy Urine pH 6.5 Ur Specific [place] 1.010 Urine Protein 500 H Urine Glucose (UA) Normal Urine Ketones 5 H Urine Occult Blood 250 H Urine Nitrite Positive H Urine Bilirubin Negative Urine Urobilinogen 1 H Ur Leukocyte Esterase 500 H Urine RBC 25-50 SEEN Urine WBC 25-50 SEEN Ur Squamous Epith Cells 0 SEEN Urine Bacteria 1+ Urine Mucus 0 SEEN Urine Osmolality Ur Random Sodium Urine Creatinine Urine Chloride Urine Opiates Screen Urine Methadone Screen Ur Barbiturates Screen Ur Phencyclidine Scrn Ur Amphetamines Screen U Methamphetamin-MDMA U Benzodiazepines Scrn Urine Cocaine Screen U Cannabinoids Screen Ur Drug Screen Comment Ethyl Alcohol 09/08/18 09/08/18 09/08/18 13:50 13:50 14:00 WBC RBC Hgb Hct MCV MCH MCHC RDW RDW Differential Plt Count MPV Immature Gran % (Auto) Neut % (Auto) Lymph % (Auto) Tyrrell % (Auto) Eos % (Auto) Baso % (Auto) Absolute Neuts (auto) Absolute Lymphs (auto) Total Counted PT INR Sodium Potassium Chloride Carbon Dioxide Anion Gap BUN Creatinine Estim Creat Clear Calc Est GFR (MDRD) Af Amer Est GFR (MDRD) Non-Af BUN/Creatinine Ratio Glucose Serum Osmolality 250 L Calcium TSH Cortisol 31.00 H Urine Color Urine Clarity Urine pH Ur Specific [place] Urine Protein Urine Glucose (UA) Urine Ketones Urine Occult Blood Urine Nitrite Urine Bilirubin Urine Urobilinogen Ur Leukocyte Esterase Urine RBC Urine WBC Ur Squamous Epith Cells Urine Bacteria Urine Mucus Urine Osmolality 149 Ur Random Sodium Urine Creatinine Urine Chloride Urine Opiates Screen Urine Methadone Screen Ur Barbiturates Screen Ur Phencyclidine Scrn Ur Amphetamines Screen U Methamphetamin-MDMA U Benzodiazepines Scrn Urine Cocaine Screen U Cannabinoids Screen Ur Drug Screen Comment Ethyl Alcohol 09/08/18 09/08/18 09/08/18 14:15 16:37 16:37 WBC 11.3 H RBC 3.64 L Hgb 11.7 L Hct 32.8 L MCV 90.1 MCH 32.1 H MCHC 35.7 RDW 14.1 RDW Differential 47.3 H Plt Count 208 MPV 8.6 Immature Gran % (Auto) 0.200 Neut % (Auto) 76.3 H Lymph % (Auto) 10.6 L Tyrrell % (Auto) 12.5 H Eos % (Auto) 0.2 Baso % (Auto) 0.2 Absolute Neuts (auto) 8.6 H Absolute Lymphs (auto) 1.20 Total Counted Not Reportable PT 12.9 INR 1.0 Sodium Potassium Chloride Carbon Dioxide Anion Gap BUN Creatinine Estim Creat Clear Calc Est GFR (MDRD) Af Amer Est GFR (MDRD) Non-Af BUN/Creatinine Ratio Glucose Serum Osmolality Calcium TSH Cortisol Urine Color Urine Clarity Urine pH Ur Specific [place] Urine Protein Urine Glucose (UA) Urine Ketones Urine Occult Blood Urine Nitrite Urine Bilirubin Urine Urobilinogen Ur Leukocyte Esterase Urine RBC Urine WBC Ur Squamous Epith Cells Urine Bacteria Urine Mucus Urine Osmolality Ur Random Sodium Urine Creatinine Urine Chloride Urine Opiates Screen Urine Methadone Screen Ur Barbiturates Screen Ur Phencyclidine Scrn Ur Amphetamines Screen U Methamphetamin-MDMA U Benzodiazepines Scrn Urine Cocaine Screen U Cannabinoids Screen Ur Drug Screen Comment Ethyl Alcohol 11.0 09/08/18 09/08/18 09/08/18 16:37 16:55 16:55 WBC RBC Hgb 11.8 L Hct 33.7 L MCV MCH MCHC RDW RDW Differential Plt Count MPV Immature Gran % (Auto) Neut % (Auto) Lymph % (Auto) Tyrrell % (Auto) Eos % (Auto) Baso % (Auto) Absolute Neuts (auto) Absolute Lymphs (auto) Total Counted PT INR Sodium Potassium Chloride Carbon Dioxide Anion Gap BUN Creatinine Estim Creat Clear Calc Est GFR (MDRD) Af Amer Est GFR (MDRD) Non-Af BUN/Creatinine Ratio Glucose Serum Osmolality Calcium TSH Cortisol Urine Color Urine Clarity Urine pH Ur Specific [place] Urine Protein Urine Glucose (UA) Urine Ketones Urine Occult Blood Urine Nitrite Urine Bilirubin Urine Urobilinogen Ur Leukocyte Esterase Urine RBC Urine WBC Ur Squamous Epith Cells Urine Bacteria Urine Mucus Urine Osmolality Ur Random Sodium Urine Creatinine < 13.00 Urine Chloride Urine Opiates Screen POSITIVE H Urine Methadone Screen NEGATIVE Ur Barbiturates Screen NEGATIVE Ur Phencyclidine Scrn NEGATIVE Ur Amphetamines Screen NEGATIVE U Methamphetamin-MDMA NEGATIVE U Benzodiazepines Scrn NEGATIVE Urine Cocaine Screen NEGATIVE U Cannabinoids Screen POSITIVE H Ur Drug Screen Comment Ethyl Alcohol 09/08/18 09/08/18 09/09/18 16:55 16:55 06:50 WBC 7.7 RBC 3.20 L Hgb 10.3 L Hct 29.3 L MCV 91.6 MCH 32.2 H MCHC 35.2 RDW 14.0 RDW Differential 45.3 H Plt Count 218 MPV 9.5 Immature Gran % (Auto) 0.300 Neut % (Auto) 68.5 Lymph % (Auto) 17.6 L [place]rell % (Auto) 12.8 H Eos % (Auto) 0.5 Baso % (Auto) 0.3 Absolute Neuts (auto) 5.3 Absolute Lymphs (auto) 1.36 Total Counted Not Reportable PT INR Sodium Potassium Chloride Carbon Dioxide Anion Gap BUN Creatinine Estim Creat Clear Calc Est GFR (MDRD) Af Amer Est GFR (MDRD) Non-Af BUN/Creatinine Ratio Glucose Serum Osmolality Calcium TSH Cortisol Urine Color Urine Clarity Urine pH Ur Specific [place] Urine Protein Urine Glucose (UA) Urine Ketones Urine Occult Blood Urine Nitrite Urine Bilirubin Urine Urobilinogen Ur Leukocyte Esterase Urine RBC Urine WBC Ur Squamous Epith Cells Urine Bacteria Urine Mucus Urine Osmolality Ur Random Sodium 104 Urine Creatinine Urine Chloride 90 Urine Opiates Screen Urine Methadone Screen Ur Barbiturates Screen Ur Phencyclidine Scrn Ur Amphetamines Screen U Methamphetamin-MDMA U Benzodiazepines Scrn Urine Cocaine Screen U Cannabinoids Screen Ur Drug Screen Comment Ethyl Alcohol 09/09/18 09/09/18 06:50 06:50 WBC RBC Hgb Hct MCV MCH MCHC RDW RDW Differential Plt Count MPV Immature Gran % (Auto) Neut % (Auto) Lymph % (Auto) Tyrrell % (Auto) Eos % (Auto) Baso % (Auto) Absolute Neuts (auto) Absolute Lymphs (auto) Total Counted PT INR Sodium 130 L Potassium 4.1 Chloride 100 Carbon Dioxide 24.0 Anion Gap 6 BUN 10 Creatinine 0.60 L Estim Creat Clear Calc 131.44 Est GFR (MDRD) Af Amer 174 Est GFR (MDRD) Non-Af 144 BUN/Creatinine Ratio 16.6 Glucose 93 Serum Osmolality Calcium 8.4 L TSH Cortisol Pending Urine Color Urine Clarity Urine pH Ur Specific [place] Urine Protein Urine Glucose (UA) Urine Ketones Urine Occult Blood Urine Nitrite Urine Bilirubin Urine Urobilinogen Ur Leukocyte Esterase Urine RBC Urine WBC Ur Squamous Epith Cells Urine Bacteria Urine Mucus Urine Osmolality Ur Random Sodium Urine Creatinine Urine Chloride Urine Opiates Screen Urine Methadone Screen Ur Barbiturates Screen Ur Phencyclidine Scrn Ur Amphetamines Screen U Methamphetamin-MDMA U Benzodiazepines Scrn Urine Cocaine Screen U Cannabinoids Screen Ur Drug Screen Comment Ethyl Alcohol Medical Necessity - Tobacco Use Smoking Status: Current every day smoker Tobacco Use: Cigarettes, Cigars Assessment/Plan All Active Problems (Last Updated 09/08/18 @ 15:49 by Shital May MD) Hyponatremia with decreased serum osmolality (Acute) Urinary tract infection (Acute) Gross hematuria (Acute) This is a 61 years old male patient presented to the emergency room because of hematuria and suprapubic pain, found to have findings consistent with probable acute cystitis and also found to have hyponatremia and he is being admitted for evaluation and treatment. #1 hematuria/probable acute cystitis: He is on IV Rocephin. Urine cultures pending. Still having gross hematuria in the urine bag. Hemoglobin and hematocrit dropped, today's hemoglobin is 10.3 g/dL. Platelet count, pro time and INR were normal. Plan: Start continuous bladder irrigation, awaiting urology recommendations. #2 hyponatremia: Serum osmolality is low, urine osmolality more than 100, urine sodium is 104, and patient is euvolemic. This is consistent with SIADH. Repeat cultures pending. Chest x-ray showed no acute findings, no masses. Plan: Awaiting repeat serum cortisol from this morning, fluid restriction to less than 800 cc daily, repeat CBC and BMP tomorrow morning. #3 CAD status post CABG and stents: According to the patient, he had stents placed back in 2006. Stable, continue statins, nitrate and beta blockers. Keep holding aspirin and Plavix for now. #4 hypertension: Blood pressure stable, continue nitrate and metoprolol as well as Procardia. #5 COPD: Clinically stable, plan for albuterol as needed, O2 by nasal cannula to keep O2 saturation more than 92%. #6 alcohol abuse: Without evidence of acute alcohol withdrawal. Blood alcohol level was 11, continue folic acid and thiamine supplement. #7 history of illicit drug use: Urine drug screen was positive for opioids and cannabinoids. Patient was given IV morphine in the ER. #8 peripheral vascular disease: Stable, continue statins, hold aspirin and Plavix as above. #9 DVT prophylaxis: SCDs. No chemical prophylaxis because of hematuria. This note was generated with [employer] dictation software. It may contain incorrect words, spelling, and punctuation that were not noted in checking the note before signing. Code Visit Inpatient E&M: 42731 Subs Hosp L2
--- NOTE | 2018-09-09 09:41 | NURSING ---
Ex stopped this RN and Dr. May in [facility] to state that patient is telling her that he does not understand what the Doctor told him. Dr. May in at this time and answered all questions to pt and ex satisfaction. Further questions denied.
--- NOTE | 2018-09-09 10:06 | CM.UR ---
Physical therapy has not evaluated patient as of yet however per ER CM note--If home PT is recommended patient is agreeable. Placed green sheet with [facility] agency information and to fax order. Elgin Garcia RN, CCM.
[2018-09-09] MEDS: Thiamine Hydrochloride 100 MG Tablet PO (11:18)
[2018-09-09] MEDS: NIFEdipine 90 MG Tablet PO (11:18)
[2018-09-09] MEDS: FLUoxetine 20 MG Capsule PO (11:18)
[2018-09-09] MEDS: Isosorbide Mononitrate 30 MG Tablet PO (11:18)
[2018-09-09] MEDS: Gabapentin 300 MG Capsule PO ×3 (11:19→18:23)
[2018-09-09] MEDS: Folic Acid 1 MG Tablet PO (11:19)
[2018-09-09] MEDS: Metoprolol Tartrate 25 MG Tablet PO (11:20)
[2018-09-09] MEDS: Acetaminophen 325 MG Tablet 650 MG PO ×2 (11:30→22:13)
--- NOTE | 2018-09-09 11:50 | CASEMGMT ---
Social Work MS3 Consult: Advanced directives Referral Source: ED RN CM Summary: Chart reviewed and noted history of alcohol and illicit drug abuse. Met with patient and introduced to self and role at hospital. Patient confirms wish to have advanced directive information but only wants the information at this point. Advanced directives: Educated patient that if decided to complete forms while in the hospital social work can assist, or an appointment can be made as an outpatient to complete. Patient expressed understanding. Right now pateint reports to want information only and will look at when feeling better. Mental Health/Substance Use Concerns: Addressed with patient the notation this process description writer saw about history of alcohol and drugs, as well as this process description writer being available to assist with resources for such. Patient reports to drink when I want, and minimized that usage is a current problem. Patient not willing to engage in conversation about substance use and reports to feel that current usage is not a problem. Patient does admit to some depression, that is feeling down and is frustrated and worried about current medical issues. Patient reports main focus right now is getting to the bottom of what is going on. Patient reports he lives between [place] and [place], that he usually spends three years in each place, that it is about time to go back to [place] but has been staying in [place] to be closer to his daughter. Patient reports his daughter wants patient to move in. Patient reports is thinking this over, but not ready to make commitment to changing living situation. Patient with flattened affect during conversation. Explored with patient whether patient is having, or has had, any history of suicidal thoughts. Patient initially reported I'm not telling. When asked about history of attempts, patient's responded that if wanted to be would already be , so no to having any past attempts or intent to kill himself. Has thought of dying in the past but no specific intent, plan, or action identified. Upon further exploration with patient, patient is not identifying any current thoughts, plans, or intent reported at this time. Protective factors: Patient reports to think that counseling for mental health may be helpful, and is future oriented in that does want to work with doctors to figure out what is going on and to feel better. Patient identifies positive connection with his daughter. Identifies the daughter as a good support and someone that looks after the patient, and someone patient may consider moving in with. Interventions: Provided patient with advanced directive information, social work rac card with number to call if wants to complete advanced directives as an outpatient, local numbers for both mental health and substance use treatment, coping skills list, and 24 hour crisis numbers if needed. Patient accepting of information offered. Patient reports he can read, but it does take awhile to get through things. Patient declines need for this process description writer to actually read line by line, and that can understand what he reads once he gets through it. Supportive listening provided to patient, encouraged patient to follow up with counseling. Offered to make arrangements but patient just wanted to have information at this time, but reports will seriously consider after getting out of the hospital. Patient's response to intervention: Patient receptive to talking to social services designee. Patient spontaneously expressed thanks to this process description writer saying I'm glad you came in, that it was helpful to get a little off my chest. Plan: Home at time of discharge. Declines referrals for substance use. Accepting and expressing interest in the information relating to mental health and advanced directives. Social work does remain available should needs arise prior to discharge. -ANABEL Mcgee ,DIRECTOR OF [employer]
[2018-09-09] MEDS: Ceftriaxone 1 GM/50 ML BAG IV (12:05)
[2018-09-09 15:26] LABS: Hematocrit 27.4 % (40-54); Hemoglobin 9.7 g/dl (13.0-16.5)
[2018-09-09] MEDS: 0.9% NaCl Peripheral Flush Adult/Peds IV (15:47)
[2018-09-09] MEDS: Atorvastatin Calcium 40 MG Tablet PO (22:12)
[2018-09-10 02:00] VITALS: BP 113/78; PULSE 102; RESP 18; TEMP 36.4; O2SAT 96
[2018-09-10 06:20] LABS: Basophil# 0.03 X10^3/uL; Basophil% 0.4 % (0-1); Eosinophil# 0.09 X10^3/uL; Eosinophils% 1.3 % (0-5); Hematocrit 26.2 % (40-54); Hemoglobin 9.2 g/dl (13.0-16.5); Lymphocyte % 30.9 % (19-41); Mean Corp Hgb Conc 35.1 g/gl (32-36); Mean Corpuscular Hgb 32.2 pg (27.0-32.0); Mean Corpuscular Volume 91.6 fL (80-94); Mean Platelet Vol. 9.1 fl (6.2-12.0); Monocyte# 0.81 X10^3/uL; Monocyte% 11.4 % (0-10); Neutrophil # 3.99 X10^3/uL (2.7-7.7); Neutrophil % 55.9 % (47-70); Platelet Count 222 K/mm3 (150-450); RBC Distribution Width CV 14.3 % (11.6-14.6); RBC Distribution Width SD 47.8 fl (35.1-43.9); Red Blood Count 2.86 M/mm3 (4.6-6.2); White Blood Count 7.1 K/mm3 (4.4-11.0)
[2018-09-10 06:31] LABS: POSITIVE COUNT NO; POSITIVE DIFFERENTIAL NO; POSITIVE MORPHOLOGY NO
[2018-09-10 07:12] VITALS: O2SAT 97
[2018-09-10 07:34] LABS: Anion Gap 7 (5-15); BUN 10 mg/dL (7-18); BUN/Creat Ratio 21.6 RATIO (10-20); Calcium,Total 8.1 mg/dL (8.5-10.1); Chloride 102 mmol/L (98-107); Creatinine, Serum 0.46 mg/dL (0.70-1.30); EST Glomerular Filtration Rate 195 mL/min (>60); Est Glom Filt Rate - Afr Amer 236 mL/min (>60); Estimated Creatinine Clearance 171.45 ml/min; Glucose 96 mg/dL (74-106); Potassium 3.8 mmol/L (3.5-5.1); Sodium Level 134 mmol/L (136-145)
[2018-09-10 08:15] VITALS: BP 111/72; PULSE 95; RESP 18; TEMP 37.4; O2SAT 99
[2018-09-10 08:19] VITALS: PULSE 97
[2018-09-10] MEDS: Thiamine Hydrochloride 100 MG Tablet PO (08:19)
[2018-09-10] MEDS: Gabapentin 300 MG Capsule PO ×3 (08:19→17:49)
[2018-09-10] MEDS: Folic Acid 1 MG Tablet PO (08:19)
[2018-09-10] MEDS: Metoprolol Tartrate 25 MG Tablet PO (08:19)
[2018-09-10] MEDS: Isosorbide Mononitrate 30 MG Tablet PO (08:20)
[2018-09-10] MEDS: Acetaminophen 325 MG Tablet 650 MG PO ×2 (08:23→15:16)
--- NOTE | 2018-09-10 09:02 | PCM.PROGNOTE ---
Patient Problems: Active and Suspected Problems (Last Updated 09/08/18 @ 15:49 by Shital May MD) Hyponatremia with decreased serum osmolality (Acute) Urinary tract infection (Acute) Gross hematuria (Acute) Subjective: Chief complaint: Follow-up after admission for gross hematuria, probable acute cystitis and hyponatremia. Patient seen and examined. No acute events overnight. Still complaining of suprapubic pain, minimal improvement. With bladder irrigation, urine is clearing up. Denies fever chills. Denied chest pain or shortness of breath. Denied dizziness or lightheadedness. His vital signs are stable - Physical Exam General: Alert, Oriented x3, Cooperative, No apparent distress HEENT: Atraumatic, PERRLA, EOMI, Normocephalic Oral: Moist Mucosa, No Gingival or Mucosal Lesions/ Ulcerations Neck: Supple, No JVD, Negative Carotid Bruits, Trachea Midline, Thyroid Normal Size and Texture Lungs: Clear to auscultation, No rhonchi, No wheeze, No rales, Diminished Cardiovascular: Regular rate, Regular Rhythm, Normal S1, Normal S2, PMI Normal Abdomen: Bowel Sounds Present, Soft, Non-Distended, No Hepato-splenomegaly, Tender - Minimal suprapubic tenderness. Extremities: No clubbing, No cyanosis, No edema Skin: No rashes, No breakdown Lymphatic: No Cervical, Supraclavicular, or Inguinal Adenopathy Neurological: Cranial nerves II-XII grossly intact, Motor Exam 5/5 strength throughout Psych/Mental Status: Normal Affect, Appropriate, Alert and oriented to time, place, person, mood and affect Vital Signs Temp Pulse Resp BP Pulse Ox 99.4 F H 97 18 111/72 99 09/10/18 08:15 09/10/18 08:19 09/10/18 08:15 09/10/18 08:15 09/10/18 08:15 Oxygen Delivery Method Room Air Weight: 160 lb 7.944 oz Body Mass Index (BMI) 22.4 Intake and Output for Last 24 Hours 09/08/18 09/09/18 09/10/18 23:59 23:59 23:59 Intake Total 307 / 307 1300 / 1300 104 / 104 Output Total 2305 / 2305 8675 / 8675 Balance -1997 / -1997 -5 / -5 104 / 104 Microbiology Past 72 Hours 09/08/18 14:00 Urine Culture - Final Urine, Clean Catch Mixed Gram Positive Organisms Laboratory Tests Past 24 Hrs 09/09/18 09/10/18 09/10/18 14:57 05:43 05:43 WBC 7.1 RBC 2.86 L Hgb 9.7 L 9.2 L Hct 27.4 L 26.2 L MCV 91.6 MCH 32.2 H MCHC 35.1 RDW 14.3 RDW Differential 47.8 H Plt Count 222 MPV 9.1 Immature Gran % (Auto) 0.100 Neut % (Auto) 55.9 Lymph % (Auto) 30.9 [place] % (Auto) 11.4 H Eos % (Auto) 1.3 Baso % (Auto) 0.4 Absolute Neuts (auto) 4.0 Absolute Lymphs (auto) 2.20 Total Counted Not Reportable Sodium 134 L Potassium 3.8 Chloride 102 Carbon Dioxide 25.0 Anion Gap 7 BUN 10 Creatinine 0.46 L Estim Creat Clear Calc 171.45 Est GFR (MDRD) Af Amer 236 Est GFR (MDRD) Non-Af 195 BUN/Creatinine Ratio 21.6 H Glucose 96 Calcium 8.1 L Medical Necessity - Tobacco Use Smoking Status: Current every day smoker Tobacco Use: Cigarettes, Cigars Assessment/Plan All Active Problems (Last Updated 09/08/18 @ 15:49 by Shital May MD) Hyponatremia with decreased serum osmolality (Acute) Urinary tract infection (Acute) Gross hematuria (Acute) This is a 61 years old male patient presented to the emergency room because of hematuria and suprapubic pain, found to have findings consistent with probable acute cystitis and also found to have hyponatremia and he is being admitted for evaluation and treatment. #1 hematuria/probable acute cystitis: Remained on IV Rocephin. Urine cultures revealed mixed growth. He is on continuous bladder irrigation, urine is clearing up, less bloody. Today's hemoglobin is 9.2 g/dL.. Platelet count, pro time and INR were normal. Awaiting urology recommendations. #2 hyponatremia: Attributed to SIADH, chronic liver disease secondary to alcohol abuse may be contributing. He is on fluid restrictions. Sodium improved, is 134 today. Chest x-ray showed no lung masses or nodules. TSH was normal on admission. Serum cortisol was elevated making adrenal insufficiency is unlikely. Repeat cortisol is pending. #3 CAD status post CABG and stents: According to the patient, he had stents placed back in 2006. Stable, continue statins, nitrate and beta blockers. Keep holding aspirin and Plavix for now. #4 hypertension: Blood pressure stable, continue nitrate and metoprolol as well as Procardia. #5 COPD: Clinically stable, plan for albuterol as needed, O2 by nasal cannula to keep O2 saturation more than 92%. #6 alcohol abuse: Without evidence of acute alcohol withdrawal. Blood alcohol level was 11, continue folic acid and thiamine supplement. #7 history of illicit drug use: Urine drug screen was positive for opioids and cannabinoids. Patient was given IV morphine in the ER. #8 peripheral vascular disease: Stable, continue statins, hold aspirin and Plavix as above. #9 DVT prophylaxis: SCDs. No chemical prophylaxis because of hematuria. This note was generated with [employer] dictation software. It may contain incorrect words, spelling, and punctuation that were not noted in checking the note before signing. Code Visit Inpatient E&M: 79011 Subs Hosp L2
[2018-09-10] MEDS: Pantoprazole Sodium 20 MG Tablet PO (10:14)
[2018-09-10] MEDS: NIFEdipine 90 MG Tablet PO (10:14)
[2018-09-10] MEDS: FLUoxetine 20 MG Capsule PO (10:14)
[2018-09-10] MEDS: Ceftriaxone 1 GM/50 ML BAG IV (10:15)
[2018-09-10] MEDS: 0.9% NaCl Peripheral Flush Adult/Peds IV ×3 (10:15→20:14)
--- NOTE | 2018-09-10 11:15 | NURSING ---
Assisted to chair at this time. Call light and phone in reach. Did recently go to bathroom and had a bowel movement.
[2018-09-10 15:30] VITALS: BP 105/64; PULSE 79; RESP 16; TEMP 37; O2SAT 100
[2018-09-10] MEDS: Ondansetron 4 MG/2 ML Vial IV (15:56)
--- NOTE | 2018-09-10 17:50 | NURSING ---
Walked zavala for the second time today. Now sitting in chair. just hung Bag number 6 CBI bag.
[2018-09-10 19:42] VITALS: BP 107/61; PULSE 79; RESP 16; TEMP 36.9; O2SAT 99
[2018-09-10] MEDS: Morphine 2 MG/ML Syringe IV (20:13)
[2018-09-10] MEDS: Atorvastatin Calcium 40 MG Tablet PO (21:45)
[2018-09-10] MEDS: Menthol/Lanolin/Calamine/Znox 113 GM Tube 1 APPLIC TOPICAL (21:56)
[2018-09-11 02:45] VITALS: BP 110/67; PULSE 83; RESP 18; TEMP 37.1; O2SAT 96
--- NOTE | 2018-09-11 07:07 | PCM.CONS.B ---
Problem List (1) Urinary tract infection Status: Acute Qualifiers: Urinary tract infection type: acute cystitis Hematuria presence: with hematuria Qualified Code(s): N30.01 - Acute cystitis with hematuria - Consult Date of Consult: 09/11/18 - Reason for Consult 63 yo male with multiple medical problems. Presented with hematuria. Has [address] way mascorro and urine now clear. Okay to d/c mascorro. Spoke to patient regarding etiologies of hematuria including, infections, kidney stone and tumors Needs to follow up with Urology as an outpatient to complete work up. call with questions.
[2018-09-11 07:33] VITALS: O2SAT 96
[2018-09-11 07:37] VITALS: BP 109/66; PULSE 94; RESP 18; TEMP 37.1; O2SAT 99
--- NOTE | 2018-09-11 07:59 | NURSING ---
[address] DORA FOWLER'D PER ORDERS - PT TOLERATED WELL
[2018-09-11] MEDS: Thiamine Hydrochloride 100 MG Tablet PO (08:52)
[2018-09-11] MEDS: Folic Acid 1 MG Tablet PO (08:52)
[2018-09-11] MEDS: Gabapentin 300 MG Capsule PO ×2 (08:52→11:50)
[2018-09-11] MEDS: Menthol/Lanolin/Calamine/Znox 113 GM Tube 1 APPLIC TOPICAL (08:52)
[2018-09-11 08:53] VITALS: BP 109/66; PULSE 94
[2018-09-11] MEDS: NIFEdipine 90 MG Tablet PO (08:53)
[2018-09-11] MEDS: Metoprolol Tartrate 25 MG Tablet PO (08:53)
[2018-09-11] MEDS: Pantoprazole Sodium 20 MG Tablet PO (08:53)
[2018-09-11] MEDS: FLUoxetine 20 MG Capsule PO (08:53)
[2018-09-11] MEDS: Isosorbide Mononitrate 30 MG Tablet PO (08:53)
[2018-09-11] MEDS: Ceftriaxone 1 GM/50 ML BAG IV (08:59)
[2018-09-11] MEDS: 0.9% NaCl Peripheral Flush Adult/Peds IV (08:59)
--- NOTE | 2018-09-11 09:25 | DCINST_ITS ---
- Discharge Diagnoses Current Active Problems: Current Active and Chronic Problems (Last Updated 09/08/18 @ 15:49 by Shital May MD) (1) Acute Blood Loss Anemia on Chronic secondary to Acute Hematuria with possible UTI (UCx mixed organisms however, < 100,000 CFU) (2) Acute on Chronic Hyponatremia secondary to #1, chronic EtOH Abuse (3) CAD status post CABG and PCI (4) Hypertension (5) Hyperlipidemia (6) Chronic COPD w/ Tobacco use ongoing (7) Alcohol abuse (8) Illicit drug abuse (UDS with opiates and cannabis) (9) PVD You will use the following diet at home:: Cardiac Your food should be the consistency of: Regular Your liquids should be the consistency of: Regular/Thin Discharge Activity: Return to Normal Activity, May not drive while taking narcotic pain medications. May resume sexual activity in: - - Avoid sexual intercourse until cleared per urology. Weight Bearing Status: Weight bearing as tolerated Call your doctor if you observe: Fever of 101 or Higher, Inability to urinate, Inability to have a bowel movement, Shortness of breath, Dizziness, Fainting spells, Chest pain, Uncontrolled pain, - - If recurrent bloody urine will need to hold aspirin and Plavix therapy and notify Dr. Sparrow office. Instructions: What is Hematuria?, Hematuria: Possible Causes, Discharge Instructions for Hyponatremia, Addiction: Your Treatment Options, Addiction: Getting Help, Addiction: Ask Yourself These Questions, Signs of Addiction: Social Use, Alcohol Withdrawal: What to Expect Additional Instructions: Urologist, Dr. Sparrow has cleared you to restart your aspirin and Plavix therapy; however, if you have recurrent hematuria (bloody urine) please hold these regimens and contact his office immediately. Please have repeat complete blood count and basic metabolic panel with your primary care physician at follow-up. Your sodium was low upon admission, likely chronic component given your alcohol abuse. Please practice safe sobriety and continue to take the supplements ordered as these are often depleted in individuals with alcohol abuse. Pending Tests on Discharge: A repeat cortisol level was pending at discharge. Please follow up on this result with your primary care at follow-up. This was obtained secondary to your low sodium level; however, suspect likely secondary to your alcohol abuse. The initial cortisol level was elevated. Allergies/Adverse Reactions: Allergies No Known Allergies Allergy (Verified 09/08/18 12:32) Medications to take at Discharge Albuterol Inhaler [Ventolin Hfa] 2 puff INHALATION Q4H PRN PRN 07/12/17 Fluticasone/Vilanterol [Breo Ellipta 200-25 Mcg INH] 1 ea IH DAILY 07/12/17 Gabapentin [Neurontin] 300 mg PO TIDCM 07/12/17 NIFEdipine [Procardia XL] 90 mg PO DAILY 07/12/17 Nitroglycerin (INPATIENT USE) [Nitrostat] 0.4 mg SUBLINGUAL Q5M PRN 07/12/17 Omeprazole [Prilosec] 20 mg PO DAILY 07/12/17 Isosorbide Mononitrate [Isosorbide Mononitrate ER] 30 mg PO DAILY 03/21/18 Aspirin [Aspir-Low] 81 mg PO DAILY 09/08/18 Atorvastatin Calcium [Lipitor] 40 mg PO QHS 09/08/18 Clopidogrel Bisulfate [Plavix] 75 mg PO DAILY 09/08/18 Fluoxetine HCl 20 mg PO DAILY 09/08/18 Metoprolol Tartrate [Lopressor (beta sascha)] 25 mg PO BID 09/08/18 Cephalexin [Keflex] 500 mg PO Q12 #6 capsule 09/11/18 Folic Acid 1 mg PO DAILY@0800 #30 tablet 09/11/18 Multivitamin with Minerals [Multivitamins with Minerals] 1 each PO DAILY #30 tablet 09/11/18 Thiamine Hydrochloride [Vitamin B1] 100 mg PO DAILYCM #30 tablet 09/11/18 The following prescriptions were given: Cephalexin [Keflex] 500 mg PO Q12 #6 capsule Folic Acid 1 mg PO DAILY@0800 #30 tablet Multivitamin with Minerals [Multivitamins with Minerals] 1 each PO DAILY #30 tablet Thiamine Hydrochloride [Vitamin B1] 100 mg PO DAILYCM #30 tablet Primary Care Physician: Kenn Parra MD [Primary Care Provider] - Please follow up with your Primary Care Physician in: Follow-up within 3-5 days to review admission. Test Results: Test results from this visit will be discussed in further detail at your follow- up appointment, if applicable. Please Follow Up With: Alexi Sparrow MD When: Follow-up within 3-5 days. Proposed Discharge Date: 09/11/18
[2018-09-11 09:28] VITALS: BP 106/74; PULSE 78; RESP 18; TEMP 37; O2SAT 100
--- NOTE | 2018-09-11 09:29 | PCM.DC.SUM ---
Discharge Date and Diagnosis - Problem List Patient Problems: Active and Suspected Problems (Last Updated 09/08/18 @ 15:49 by Shital May MD) Hyponatremia with decreased serum osmolality (Acute) Urinary tract infection (Acute) Gross hematuria (Acute) Date of Admission: 09/08/18 Date of Discharge: 09/11/18 - Primary Discharge Diagnosis Active and Suspected Problems (Last Updated 09/08/18 @ 15:49 by Shital May MD) (1) Acute Blood Loss Anemia on Chronic secondary to Acute Hematuria with possible UTI (UCx mixed organisms however, < 100,000 CFU) (2) Acute on Chronic Hyponatremia secondary to #1, chronic EtOH Abuse (3) CAD status post CABG and PCI (4) Hypertension (5) Hyperlipidemia (6) Chronic COPD w/ Tobacco use ongoing (7) Alcohol abuse (8) Illicit drug abuse (UDS with opiates and cannabis) (9) PVD, PAD - Secondary Discharge Diagnosis Chronic Problems (Last Updated 09/08/18 @ 15:49 by Shital May MD) Raynaud's syndrome (Chronic) History of TIA (transient ischemic attack) (Chronic) Obstructive sleep apnea (Chronic) PAD (peripheral artery disease) (Chronic) S/P CABG x 4 (Chronic ~2008) HOFFMAN to LAD, SVG to 1st Diagonal, SVG to 1st OM, SVG to Right PDA, Done @ [facility]. COPD (chronic obstructive pulmonary disease) (Chronic) History of non-ST elevation myocardial infarction (NSTEMI) (Chronic 03/22/18) Atherosclerotic heart disease of [place] coronary artery without angina pectoris (Chronic) Illicit drug use (Chronic) ETOH abuse (Chronic) HTN (hypertension) (Chronic) HLD (hyperlipidemia) (Chronic) Hospital Course and Treatment Dr. Sparrow Urology Operations: None Procedures: None Summary of Care Provided: The patient is a 63 y/o M w/ PMHx: Chronic Hyponatremia, EtOH Abuse, Tobacco use, Chronic COPD, HTN, HLD, CAD s/p CABG and PCI, PAD, PVD, RASHID who presented to the [facility] ED on 09/08/18 with history of onset grossly bloody urine with suprapubic discomfort and urinary retention with subjective fever at home. The patient was admitted to the medical surgical floor, three-way March catheter with irrigation was initiated with improvement of urine appearance with hemoglobin trended, discharge date hemoglobin 9.2 with admission hemoglobin 11.7, patient maintained on IV Rocephin with transition to oral antibiotic therapy however urine culture was mixed organisms less than 100,000 although discussions with urology with requested continue 2 to 3-day course of antibiotic therapy , sodium level upon ED presentation 124 suspected acute on chronic secondary to acute presentation and also chronic alcohol abuse with improvement with IV fluids with normal appearing TSH, unremarkable CXR, serum cortisol elevated, repeat pending at discharge, aspirin therapy and plavix held but cleared to restart at discharge per per clearance per urology with patient discussion of repeat hold if recurrent hematuria immediate contact of urology office. Safe sobriety encouraged with patient with continued multivitamin, thiamine and folic acid upon discharge. Requested follow-up with urology within 3 to 5 days as well as primary care physician with repeat CBC and BMP with primary care physician at follow-up. Strongly encouraged tobacco cessation. DAY OF DISCHARGE PROGRESS NOTE: Subjective: Patient without acute event overnight per self and nursing report; however, notes still some mild but improved abdominal suprapubic discomfort. Patient evaluated by urology and three-way March catheter given resolution of hematuria discontinued. Patient denies fever, chills, nausea, emesis, chest pain or dyspnea. Patient agreeable to discharge to home w/ offered prescription for wheeled walker as well as home therapies but declined therapies. Patient will be discharged with follow-up with primary care physician within 3-5 days in addition to urology follow-up as well. Objective: T 98.7, heart rate 94, BP 109/66, respiratory rate 18, 99% on room air. Physical Examination: General: awake, alert, oriented x 3 and cooperative, seated upright in the bed, NAD. Skin: normal color, turgor, no icterus, cyanosis. HEENT: AT/NC, EOMI, PERRLA, MMM. Lungs: CTA bilaterally, moderate effort, mild decrease BL bases, no rales, ronchi or wheezing; Heart: Regular rate and rhythm; no gallop, rub audible. Abdomen: soft, thin habitus, NTTP mild suprapubic discomfort with palpation but he notes this has improved, ND, normal BS. Extremities: no cyanosis, clubbing, or edema. Neurological: patient awake, alert, oriented x 3; cognitive function appears intact upon questioning,; pupils equally reactive to light and accomodation; cranial nerves II-XII grossly normal, moving all 4 extremities, strength moderately globally decreased secondary to acute presentation Psychiatric: affect appears normal, no acute evidence of depressive or anxiety feelings. Assessment and Plan: Please see hospital summary above. Patient Problems: Active and Suspected Problems (Last Updated 09/08/18 @ 15:49 by Shital May MD) Hyponatremia with decreased serum osmolality (Acute) Urinary tract infection (Acute) Gross hematuria (Acute) - Physical Exam Vital Signs Temp Pulse Resp BP Pulse Ox 98.7 F 94 18 109/66 99 09/11/18 07:37 09/11/18 08:53 09/11/18 07:37 09/11/18 08:53 09/11/18 07:37 Oxygen Delivery Method Room Air Weight: 160 lb 7.944 oz Body Mass Index (BMI) 22.4 Intake and Output for Last 24 Hours 09/09/18 09/10/18 09/11/18 23:59 23:59 23:59 Intake Total 1300 / 1300 861 / 861 0 / 0 Output Total 8675 / 8675 850 / 850 300 / 300 Balance -7375 / -7375 -300 / -300 Microbiology Past 72 Hours 09/08/18 14:00 Urine Culture - Final Urine, Clean Catch Mixed Gram Positive Organisms Discharge Activity: Return to Normal Activity, May not drive while taking narcotic pain medications. May resume sexual activity in: - - Avoid sexual intercourse until cleared per urology. Weight Bearing Status: Weight bearing as tolerated Call your doctor if you observe: Fever of 101 or Higher, Inability to urinate, Inability to have a bowel movement, Shortness of breath, Dizziness, Fainting spells, Chest pain, Uncontrolled pain, - - If recurrent bloody urine will need to hold aspirin and Plavix therapy and notify Dr. Sparrow office. Home Medications: Medications to take at Discharge Albuterol Inhaler [Ventolin Hfa] 2 puff INHALATION Q4H PRN PRN 07/12/17 Fluticasone/Vilanterol [Breo Ellipta 200-25 Mcg INH] 1 ea IH DAILY 07/12/17 Gabapentin [Neurontin] 300 mg PO TIDCM 07/12/17 NIFEdipine [Procardia XL] 90 mg PO DAILY 07/12/17 Nitroglycerin (INPATIENT USE) [Nitrostat] 0.4 mg SUBLINGUAL Q5M PRN 07/12/17 Omeprazole [Prilosec] 20 mg PO DAILY 07/12/17 Isosorbide Mononitrate [Isosorbide Mononitrate ER] 30 mg PO DAILY 03/21/18 Aspirin [Aspir-Low] 81 mg PO DAILY 09/08/18 Atorvastatin Calcium [Lipitor] 40 mg PO QHS 09/08/18 Clopidogrel Bisulfate [Plavix] 75 mg PO DAILY 09/08/18 Fluoxetine HCl 20 mg PO DAILY 09/08/18 Metoprolol Tartrate [Lopressor (beta sascha)] 25 mg PO BID 09/08/18 Cephalexin [Keflex] 500 mg PO Q12 #6 capsule 09/11/18 Folic Acid 1 mg PO DAILY@0800 #30 tablet 09/11/18 Multivitamin with Minerals [Multivitamins with Minerals] 1 each PO DAILY #30 tablet 09/11/18 Thiamine Hydrochloride [Vitamin B1] 100 mg PO DAILYCM #30 tablet 09/11/18 Following Prescrptions Were Given to Patient: Cephalexin [Keflex] 500 mg PO Q12 #6 capsule Folic Acid 1 mg PO DAILY@0800 #30 tablet Multivitamin with Minerals [Multivitamins with Minerals] 1 each PO DAILY #30 tablet Thiamine Hydrochloride [Vitamin B1] 100 mg PO DAILYCM #30 tablet Primary Care Physician: Kenn Parra MD [Primary Care Provider] - Please follow up with your Primary Care Physician in: Follow-up within 3-5 days to review admission. Please Follow Up With: Alexi Sparrow MD When: Follow-up within 3-5 days. Patient Instructions: What is Hematuria?, Hematuria: Possible Causes, Signs of Addiction: Social Use, Alcohol Withdrawal: What to Expect, Addiction: Ask Yourself These Questions, Addiction: Getting Help, Addiction: Your Treatment Options, Discharge Instructions for Hyponatremia Medical Necessity - Tobacco Use Smoking Status: Current every day smoker Tobacco Use: Cigarettes, Cigars Meaningful Use Info Meaningful Use Diagnoses (Choose all that apply): None applicable Code Visit Inpatient E&M: 31469 Disch Hosp
--- NOTE | 2018-09-11 10:20 | CASEMGMT ---
MEAGAN ESTRADA followed up with patient regarding discharge needs. Patient states that he does not want HHC. MEAGAN ESTRADA instructed patient that if he should change his mind, he can follow-up with his PCP. Patient would like [facility] at discharge and would like [employer] for DME. MEAGAN ESTRADA received script from hospitalist. Referral made to [employer] and arranged for delivery of FWW to patient's room prior to discharge.
[2018-09-11 14:00] VITALS: BP 106/74; PULSE 78; RESP 18; TEMP 37; O2SAT 100
--- NOTE | 2018-09-11 15:01 | NURSING ---
no void since mascorro dc'd @ 0800. bladder scan = 191ml. dr silva notified & new orders received.
--- NOTE | 2018-09-12 14:46 | CASEMGMT ---
MEAGAN ESTRADA DC PHONE CALL DC DATE: 09/11/18 DC Disposition: Home LACE/STRATA: 05/08 Intro role of CM to patient via phone. Pt states he is having difficulty with urinary incontinence. RN SEAN recommended pt update Dr. Sparrow's nurse re: this. Pt states he is seeing Dr. Parra, his PCP on . Pt will call and let office know if symptoms worsen. No questions re: medications; had prescriptions filled. No care improvement suggestions given. Ivan TABORN RN ACM
== END 2018-09-11 16:55 | disposition home or self-care (01) | DRG 463 ==
LOC: ED 15:01 → MS3 15:48
PROVIDERS: Admitting Provider Hospitalist; Emergency Provider Emergency Medicine; Family Provider Family Medicine; PCP Family Medicine; Referring Provider Hospitalist; Visit Provider Family Medicine
DX: N39.0 Urinary tract infection, site not specified (principal); R31.0 Gross hematuria; I25.10 Atherosclerotic heart disease of native coronary artery without angina pectoris; I10 Essential (primary) hypertension; F10.10 Alcohol abuse, uncomplicated; N40.1 Benign prostatic hyperplasia with lower urinary tract symptoms; R33.8 Other retention of urine; E22.2 Syndrome of inappropriate secretion of antidiuretic hormone; D62 Acute posthemorrhagic anemia; J44.9 Chronic obstructive pulmonary disease, unspecified; F17.210 Nicotine dependence, cigarettes, uncomplicated; I73.9 Peripheral vascular disease, unspecified; E78.5 Hyperlipidemia, unspecified; I73.00 Raynaud's syndrome without gangrene; G47.33 Obstructive sleep apnea (adult) (pediatric); F12.10 Cannabis abuse, uncomplicated; F11.10 Opioid abuse, uncomplicated; Z86.73 Personal history of transient ischemic attack (TIA), and cerebral infarction without residual deficits; Z79.02 Long term (current) use of antithrombotics/antiplatelets; Z95.1 Presence of aortocoronary bypass graft; Z95.5 Presence of coronary angioplasty implant and graft; Z79.82 Long term (current) use of aspirin
CPT/HCPCS: 36415; 51702; 71045; 80048; 80307; 80320; 81001; 82436; 82533; 82570; 83930; 83935; 84300; 84443; 85014; 85018; 85025; 85610; 87086; 87088; 97110; 97161; 97165; 97530; 97802; 99285; 99406; J7030; J7040; A4216; G0480; J2405

== ENCOUNTER 2018-10-22 20:16 | Emergency (ER) | payer MEDICAID, SELFPAY ==
[2018-09-08 16:30] VITALS: BMI 22.4
[2018-10-22 20:17] VITALS: BP 149/76; PULSE 94; RESP 18; TEMP 37.2; O2SAT 99; BMI 20.1
--- NOTE | 2018-10-22 20:29 | RAD_ITS ---
STUDY: X-RAY CHEST REASON FOR EXAM: Male, 63 years old. Left-sided rib pain and shortness of breath TECHNIQUE: Single AP portable view of the chest. COMPARISON: 09/08/2018 FINDINGS: Status post median sternotomy The lungs are clear and expanded. There is no demonstrated pleural abnormality. Normal size heart. Normal mediastinum and clinton. Normal visualized pulmonary arteries. Normal visualized aortic arch and descending thoracic aorta. Normal visualized thoracic spine. Normal visualized ribs, clavicles, and shoulders. There is no demonstrated abnormality of the visualized soft tissue structures of the upper abdomen. RAD/Chest 1 View (Portable) IMPRESSION: Normal x-ray examination of the chest. Electronically Signed: Judy Zarate, at 21:03 EDT Tel , Service support ,
--- NOTE | 2018-10-22 20:29 | EKG12_ITS ---
Test Reason : SOB Blood Pressure : / mmHG Vent. Rate : 081 BPM Atrial Rate : 081 BPM P-R Int : 172 ms QRS Dur : 072 ms QT Int : 398 ms P-R-T Axes : 044 017 063 degrees QTc Int : 462 ms Sinus rhythm with occasional Premature ventricular complexes Nonspecific ST abnormality Abnormal ECG Confirmed by VICTORINA HOLT, LEONILA ([id number]), assignment editor SHERRON ENGEL ([id number]) on 10/23/2018 1:15:56 PM Referred By: RODNEY Confirmed By:LEONILA PRAJAPATI MD
[2018-10-22] MEDS: 0.9% Normal Saline 1,000 ML 150 ML IV (20:44)
[2018-10-22] MEDS: Ondansetron 4 MG/2 ML Vial IV (20:44)
[2018-10-22] MEDS: Morphine 4 MG/ML Syringe IV (20:44)
[2018-10-22 20:48] VITALS: PULSE 86; RESP 18
[2018-10-22] MEDS: Ipratropium/Albuterol Sulfate 3 ML AMPUL.NEB INHALATION (20:48)
[2018-10-22 21:11] VITALS: BP 145/92; PULSE 85; RESP 16; O2SAT 96
[2018-10-22 21:26] LABS: Absolute Lymphocyte Count 2.19 X10^3/ul (0.83-4.51); Absolute Neutrophil Count 6.8 X10^3/uL (2.0-7.7); Basophil# 0.04 X10^3/uL; Basophil% 0.4 % (0-1); Eosinophil# 0.19 X10^3/uL; Eosinophils% 1.8 % (0-5); Hematocrit 27.6 % (40-54); Hemoglobin 9.4 g/dl (13.0-16.5); Lymphocyte # 2.19 X10^3/ul (4.0); Lymphocyte % 20.7 % (19-41); Mean Corp Hgb Conc 34.1 g/gl (32-36); Mean Corpuscular Hgb 32.6 pg (27.0-32.0); Mean Corpuscular Volume 95.8 fL (80-94); Mean Platelet Vol. 9.4 fl (6.2-12.0); Monocyte# 1.33 X10^3/uL; Monocyte% 12.6 % (0-10); Neutrophil # 6.78 X10^3/uL (2.7-7.7); Neutrophil % 64.2 % (47-70); Platelet Count 360 K/mm3 (150-450); RBC Distribution Width CV 14.2 % (11.6-14.6); RBC Distribution Width SD 49.6 fl (35.1-43.9); Red Blood Count 2.88 M/mm3 (4.6-6.2); White Blood Count 10.6 K/mm3 (4.4-11.0)
[2018-10-22 21:27] LABS: POSITIVE COUNT NO; POSITIVE DIFFERENTIAL NO; POSITIVE MORPHOLOGY NO
[2018-10-22 21:37] LABS: Anion Gap 9 (5-15); BUN 8 mg/dL (7-18); BUN/Creat Ratio 13.9 RATIO (10-20); Calcium,Total 8.6 mg/dL (8.5-10.1); Chloride 101 mmol/L (98-107); Creatinine, Serum 0.58 mg/dL (0.70-1.30); EST Glomerular Filtration Rate 152 mL/min (>60); Est Glom Filt Rate - Afr Amer 184 mL/min (>60); Estimated Creatinine Clearance 122.53 ml/min; Glucose 67 mg/dL (74-106); Potassium 3.3 mmol/L (3.5-5.1); Sodium Level 131 mmol/L (136-145)
--- NOTE | 2018-10-22 21:55 | RAD_ITS ---
STUDY: X-RAY CHEST REASON FOR EXAM: Male, 63 years old. Left rib pain TECHNIQUE: Single lateral view COMPARISON: October 22, 2018 at 20:31 hours FINDINGS: Sternotomy wires are present. The lungs are expanded. Mild basilar atelectasis. Normal size heart. Normal mediastinum and clinton. Normal visualized pulmonary arteries. Normal visualized aortic arch and descending thoracic aorta. Normal visualized thoracic spine. Normal visualized ribs, clavicles, and shoulders. There is no demonstrated abnormality of the visualized soft tissue structures of the upper abdomen. RAD/Chest 1 View IMPRESSION: Mild basilar atelectasis. Electronically Signed: Edwin Parson DO at 23:03 EDT Tel [phone], Service support ,
[2018-10-22 22:49] VITALS: BP 133/65; PULSE 91; RESP 16; TEMP 37.2; O2SAT 95
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
[2018-10-22] MEDS: predniSONE 20 MG Tablet 40 MG PO (23:15)
--- NOTE | 2018-10-22 23:16 | DCINST.ED_ITS ---
ED Disposition - Plan for ED Patient: Instructions: Copd Flare, FRACTURE, Rib Prescriptions: Prednisone [Deltasone] 20 mg PO BID #6 tab Prescription Printed Doxycycline 100 mg PO BID #20 cap Prescription Printed Hydrocodone Bitart/Apap 5-325 [[place] 5MG-325MG] 1 tab PO Q4H PRN PRN 2 Days #15 tab PRN Reason: Pain Prescription Printed Referrals: Kenn Parra MD [Primary Care Provider] - 3-5 Days
[2018-10-22 23:30] VITALS: BP 126/59; PULSE 84; RESP 18; O2SAT 95
== END 2018-10-22 23:31 | disposition home or self-care (01) ==
LOC: ED 20:49
PROVIDERS: Emergency Provider Emergency Medicine; Family Provider Family Medicine; PCP Family Medicine
DX: J44.1 Chronic obstructive pulmonary disease with (acute) exacerbation (principal); S22.39XA Fracture of one rib, unspecified side, initial encounter for closed fracture; V89.2XXD Person injured in unspecified motor-vehicle accident, traffic, subsequent encounter; I10 Essential (primary) hypertension; E78.00 Pure hypercholesterolemia, unspecified; I73.9 Peripheral vascular disease, unspecified; F17.210 Nicotine dependence, cigarettes, uncomplicated
CPT/HCPCS: 71045; 80048; 80320; 84484; 85025; 87040; 93005; 94640; 99284; J7030; G0480; J2405

== ENCOUNTER → 2018-12-22 08:38 | Outpatient (CLI) | payer MEDICAID, SELFPAY ==
[2018-11-21 15:42] VITALS: BMI 19.8
--- NOTE | 2018-12-22 08:42 | ADU_ITS ---
Reason For Study: Atherosclerosis Right Velocities Left Velocities Ext. Iliac Artery, dist = 154.5 cm./sec. Ext Iliac Artery, dist = 112.5 cm./sec. Common Femoral Artery, mid = 201.1 cm./sec. Common Femoral Artery, mid = 362.3 cm./sec. Supf Femoral Artery, prox = 108.8 cm./sec. Supf. Femoral Artery, prox = 178.7 cm./sec. Supf Femoral Artery, mid = 67.7 cm./sec. Supf. Femoral Artery, mid = 48.2 cm./sec. Supf Femoral Artery, dist. = 26.5 cm./sec. Supf. Femoral Artery, dist = 22.9 cm./sec. Profunda Femoral Artery = 147.7 cm./sec. Profunda Femoral Artery = 407.7 cm./sec. Popliteal Artery, prox. = 16.9 cm./sec. Popliteal Artery, proximal, = 36 cm./sec. Popliteal Artery, mid = 17.9 cm./sec. Popliteal Artery, mid = 21.8 cm./sec. Popliteal Artery, dist = 16.9 cm./sec. Popliteal Artery, distal = 25.3 cm./sec. Post. Tibial Artery, prox = 17.4 cm./sec. Post. Tibial Artery, prox = 13 cm./sec. Post. Tibial Artery, mid = 31.5 cm./sec. Post Tibial Artery, mid = 12.7 cm./sec. Post. Tibial Artery, dist = 19.4 cm./sec. Post Tibial Artery, dist. = 9.2 cm./sec. Peroneal Artery, prox = 24.5 cm./sec. Peroneal Artery, prox = 25 cm./sec. Peroneal Artery, mid = 19.4 cm./sec. Peroneal Artery, mid = 25.6 cm./sec. Peroneal Artery,dist = 13.9 cm./sec. Peroneal Artery,dist. = 18.4 cm./sec. Ant. Tibial Artery, prox = 15.9 cm./sec. Ant.Tibial Artery, prox = 34.9 cm./sec. Ant. Tibial Artery, mid = 15.9 cm./sec. Ant Tibial Artery, mid = 21.3 cm./sec. Ant. Tibial Artery, dist = 15.4 cm./sec. Ant. Tibial Artery, distal = 18.8 cm./sec. Procedure Exam performed in department. Interpretation Summary 1. Right leg with no significant stenosis 2. Left leg with severe stenosis in DRY CURER and profunda with monophasic flow below. Ordering Physician: Parminder Colbert Referring Physician: Kenn Parra Performed By: Maranda Wise RVT
--- NOTE | 2018-12-22 08:42 | ART_ITS ---
Reason For Study: Atherosclerosis Procedure A bilateral lower extremity continuous wave Doppler with analog waveform analysis and ankle brachial indexes. Left Segmental Pressures Left brachial= 117mmHg. Left posterior tibial artery = 90mmHg. Left dorsalis pedis artery = 89mmHg. The left dorsalis pedis waveforms are monophasic. The left posterior tibial artery waveforms are monophasic. Right Segmental Pressures Right brachial= 114mmHg. Right posterior tibial artery = 87mmHg. Right dorsalis pedis artery = 78mmHg. The right dorsalis pedis waveforms are monophasic. The right posterior tibial artery waveforms are monophasic. Indices The right ankle brachial index by the dorsalis pedis is 0.67. The right ankle brachial index by the posterior tibial artery is 0.74. The left ankle brachial index by the dorsalis pedis is 0.76. The left ankle brachial index by the posterior tibial artery is 0.77. Interpretation Summary 1. Bilateral mild occlussive disease with MAT 0.74 and 0.77. Ordering Physician: Parminder Colbert Referring Physician: Kenn Parra Performed By: Maranda Wise RVT
--- NOTE | 2018-12-22 08:42 | AAVD_ITS ---
Reason For Study: Atherosclerosis Aorta Measurements Aorta Doppler Measurements Proximal aorta measures1.29 x 1.29cm. in cross- Peak systolic flow velocities within the proximal sectional axis. aorta measure 52.9 cm/sec. Proximal aorta measures1.27cm. in longitudinal Peak systolic flow velocities within the mid aorta axis. measure 53.7 cm/sec. Mid aorta measures1.10 x 1.12cm. in cross- Peak systolic flow velocities within the distal sectional axis. aorta measure 45 cm/sec. Mid aorta measures1.12cm. in longitudinal axis. Distal aorta measures0.97 x 1.04cm. in cross- sectional axis. Distal aorta measures0.91cm. in longitudinal axis. Left Iliac Artery Left iliac artery measures 0.78 x 0.79 cm. in the cross-sectional axis. Left iliac artery measures 0.86 cm. in the longitudinal axis. Peak systolic velocity in the left iliac artery measures 50.1 cm/sec. Right Iliac Artery Right iliac artery measures 0.40 x 0.37 cm. in the cross-sectional axis. Right iliac artery measures 0.40 cm. in the longitudinal axis. Peak systolic velocity in the right iliac artery measures 127.1 cm/sec. Procedure Aorta IVC Iliac vasculature or bypass grafts 19416. Exam performed in department. Interpretation Summary 1. Aortoiliac with no stenosis or aneurysm. Ordering Physician: Parminder Colbert Referring Physician: Kenn Parra Performed By: Maranda Wise RVT
== END ==
PROVIDERS: Family Provider Family Medicine; PCP Family Medicine; Referring Provider Surgery Vascular Surgery; Visit Provider Surgery Vascular Surgery
DX: I70.213 Atherosclerosis of native arteries of extremities with intermittent claudication, bilateral legs (principal); I70.0 Atherosclerosis of aorta
CPT/HCPCS: 93922; 93925; 93978

== ENCOUNTER → 2019-01-01 08:52 | Outpatient (CLI) | payer MEDICAID, SELFPAY ==
[2018-11-21 15:42] VITALS: BMI 19.8
== END ==
PROVIDERS: Family Provider Family Medicine; PCP Family Medicine; Referring Provider Internal Medicine Cardiovascular Disease; Visit Provider Internal Medicine Cardiovascular Disease
DX: I25.10 Atherosclerotic heart disease of native coronary artery without angina pectoris (principal); I25.2 Old myocardial infarction; G47.33 Obstructive sleep apnea (adult) (pediatric); Z95.1 Presence of aortocoronary bypass graft

== ENCOUNTER → 2019-01-02 11:05 | Outpatient (CLI) | payer MEDICAID, SELFPAY ==
[2018-11-21 15:42] VITALS: BMI 19.8
[2019-01-02 13:04] LABS: Creatinine, Serum 0.58 mg/dL (0.70-1.30); EST Glomerular Filtration Rate 150 mL/min (>60); Est Glom Filt Rate - Afr Amer 181 mL/min (>60)
== END ==
PROVIDERS: Family Provider Family Medicine; PCP Family Medicine; Referring Provider Surgery Vascular Surgery; Visit Provider Surgery Vascular Surgery
DX: I70.213 Atherosclerosis of native arteries of extremities with intermittent claudication, bilateral legs (principal)
CPT/HCPCS: 36415; 82565

== ENCOUNTER → 2019-01-31 13:35 | Outpatient (CLI) | payer MEDICAID, SELFPAY ==
[2018-11-21 15:42] VITALS: BMI 19.8
--- NOTE | 2019-01-31 13:36 | STEWCON_ITS ---
Reason For Study: S/P CABG Stress Results Protocol: Dobutamine with definity Maximum Predicted HR: 158 bpm Target HR: 134 bpm % Maximum Predicted HR: 85 % DurationHeart Rate Stage (mm:ss) (bpm) BP Dose Comment BASELINE 85 118/61 2 CC DEFINITY STAGE 1 3:00 91 114/6310.001 CC DEFINITY STAGE 2 3:00 104 113/6320.00 STAGE 3 3:00 115 95/57 30.00 STAGE 4 4:07 134 98/56 40.001 CC DEFINITY, 0.25 MG ATROPINE RECOVERY 100 100/56 1 CC DEFINITY Stress Duration: 13:07 mm:ss Maximum Stress HR: 134 bpm Baseline Echocardiogram Findings The estimated ejection fraction is 45 %. Stress Echo Wall motion Data Resting WM Intermediate WM Stress WM Resting Wall Motion Wall Motion Stress Anterio-Basal: Mildly All young except for baseline hypokinetic. maya-septal young contracted Basal anteroseptal: Mildly normally at peak infusion. hypokinetic. Mid-Anterior : Mildly hypokinetic. EKG Data NSR with baseline old maya-septal wall TX. The patient was titrated from 10 mcg to a maximum of 40 mcg of dobutamine during the stress. The maximum heart rate attained was 136 beats per minute. This was 86% of maximum predicted heart rate. At peak infusion, upsloping ST changes only were noted, which did not meet the criteria for ischemia. No clinical angina was noted. Interpretation Summary The estimated ejection fraction is 45 %. All young except for baseline maya-septal young contracted normally at peak infusion. Normal, adequate, dobutamine echocardiogram. Negative for ischemia by EKG and echocardiographic criteria. No anginal symptoms noted. Rare PVCs noted during the infusion which is a nonspecific finding. Appropriate blood pressure response to dobutamine. Final LVEF of 55%. Patient at baseline anteroseptal hypokinesis which remained the same during infusion. All other young contracted normally at peak infusion. Test terminated due to the attainment of target heart rate. Decreased sensitivity due to poor echo windows requiring Definity agent. No complications. The study was technically difficult. Contrast injection was performed. Ordering Physician: Sreekanth Liu Referring Physician: Sreekanth Liu Performed By: Kaylie Skelton RDCS
== END ==
PROVIDERS: Family Provider Family Medicine; PCP Family Medicine; Referring Provider Internal Medicine Cardiovascular Disease; Visit Provider Internal Medicine Cardiovascular Disease
DX: I25.10 Atherosclerotic heart disease of native coronary artery without angina pectoris (principal); I10 Essential (primary) hypertension; G47.33 Obstructive sleep apnea (adult) (pediatric); I70.213 Atherosclerosis of native arteries of extremities with intermittent claudication, bilateral legs; Z95.1 Presence of aortocoronary bypass graft
CPT/HCPCS: 93017; 93350; J7040; Q9957; A4216; C8928

== ENCOUNTER 2019-02-11 06:35 | Emergency (ER) | payer MEDICAID, SELFPAY ==
[2018-11-21 15:42] VITALS: BMI 19.8
[2019-02-11] VITALS (14 sets, daily range): BP systolic 93–142; BP diastolic 36–102; PULSE 99–119; RESP 12–34; TEMP 34.6–36.4; O2SAT 71–100; BMI 15.7
--- NOTE | 2019-02-11 06:53 | EKG12_ITS ---
Test Reason : Blood Pressure : / mmHG Vent. Rate : 100 BPM Atrial Rate : 100 BPM P-R Int : 174 ms QRS Dur : 072 ms QT Int : 374 ms P-R-T Axes : 064 057 195 degrees QTc Int : 482 ms Normal sinus rhythm Possible Left atrial enlargement T wave abnormality, consider lateral ischemia Abnormal ECG Confirmed by VICTORINA HOLT, LEONILA ([id number]), food editor WYATT WILLARD ([id number]) on 02/16/2019 10:18:44 AM Referred By: Sreekanth Liu Confirmed By:LEONILA PRAJAPATI MD
--- NOTE | 2019-02-11 06:53 | RAD_ITS ---
STUDY: X-RAY CHEST REASON FOR EXAM: Male, 63 years old. SOB TECHNIQUE: Single frontal view of the chest. COMPARISON: 10/22/2018 FINDINGS: Median sternotomy wires and CABG clips. The lungs are clear and expanded. There is no demonstrated pleural abnormality. Normal size heart. Normal mediastinum and clinton. Normal visualized pulmonary arteries. Normal visualized aortic arch and descending thoracic aorta. Normal visualized thoracic spine. Normal visualized ribs, clavicles, and shoulders. Dilated small bowel loops. Consider acute abdominal series. RAD/Chest 1 View (Portable) IMPRESSION: No acute pulmonary findings. Dilated small bowel loops. Consider acute abdominal series. Electronically Signed: Kenn Nelson MD at 7:30 EDT Tel , Service support ,
--- NOTE | 2019-02-11 06:55 | CT_ITS ---
STUDY: CT BRAIN WITHOUT CONTRAST REASON FOR EXAM: Male, 63 years old. DISSECTION, SOB,PT HAVING WEAKNESS. FOUND IN URINE AND FECES. MOTTLED RADIATION DOSAGE (If Supplied By Facility): CTDIvol = ( ) mGy, DLP = ( ) mGycm TECHNIQUE: Transaxial CT imaging of the brain was performed without administration of intravenous contrast material. Individualized dose optimization techniques were used for this CT. COMPARISON: None. FINDINGS: There is cerebral atrophy with widening of the extra-axial spaces and ventricular dilatation. There are areas of decreased attenuation within the white matter tracts of the supratentorial brain, consistent with microvascular disease changes. There is no intracranial hemorrhage. There are no findings of an acute ischemic infarction. Normal soft tissue structures. CT/Brain/Head without Contrast IMPRESSION: Chronic involutional changes of the brain. Electronically Signed: Medardo Wang MD at 8:32 EDT Tel , Service support ,
[2019-02-11 07:06] LABS: Base Excess -19 mmol/L (-2 to +2); Bicarbonate 8.4 mmol/L (22-26); Blood Gas Specimen Type ART; O2 Delivery Device NRB Mask; PO2 52 mmHG (75-100); SITE R Femoral; SO2 81 % (95-99); Time Given 650; Total Carbon Dioxide 9 mmol/L; pCO2 20.5 mmHg (35-45); pH 7.22 (7.35-7.45)
--- NOTE | 2019-02-11 07:06 | CT_ITS ---
We are attempting to reach an attending provider to discuss findings. An addendum with communication details will be sent when the communication is complete. STUDY: CTA CHEST REASON FOR EXAM: Male, 63 years old. Weakness found down RADIATION DOSAGE (If Supplied By Facility): CTDIvol = ( ) mGy, DLP = ( ) mGycm TECHNIQUE: The examination was performed with the intravenous administration of IV Isovue 370 100. Post-processing of the angiographic images was performed, with multiplanar reformation and 3D reconstruction. Individualized dose optimization techniques were used for this CT. COMPARISON: Chest x-ray February 11, 2019 FINDINGS: Normal enhancement of the main pulmonary artery and right and left pulmonary arteries. Normal enhancement of the bilateral peripheral pulmonary arteries. There is no demonstrated pulmonary embolism. The ascending thoracic aorta measures 2.5 x 3.5 cm. The aorta is partially calcified. There is calcification of the takeoff of the subclavian, internal carotid artery and innominate. There is no demonstrated aortic dissection. The coronary calcifications. There is a fluid distended appearance of the esophagus . There is a partially fluid distended appearance of the bilateral dependent bronchi suspicious for aspiration. There is fluid in the right greater greater than left descending branches. There is a patchy infiltrate in the left upper lobe there is a patchy consolidation in the bilateral left greater than right lower lobe sutures a patchy groundglass opacity in the right middle lobe. There are patchy infiltrates in the right upper lobe. There are scattered emphysematous blebs in the lung apices. Normal pleura. Normal chest wall structures. Sternotomy wires are seen midline. There is degenerative change in the thoracic spine. There is partial visualization of a striated appearance of both kidneys suggesting pyelonephritis. There is moderate right hydronephrosis. There is a March catheter in the bladder however the bladder wall is severely thickened surrounding the March catheter. CT/CTA Chest W/WO Contrast IMPRESSION: Distended esophagus with fluid distended stomach. Please see the CT scan of the abdomen and pelvis describing small bowel obstruction. Multifocal aspiration pneumonia. Aspirate within the bilateral lower lobe bronchi. No visualized pulmonary embolism or aortic dissection Partially visualized kidneys with hydronephrosis and striation highly suspicious for pyelonephritis. The markedly thickened bladder wall will be described on the dedicated CT scan of the abdomen and pelvis which is highly suspicious for severe chronic infection and/or potentially less likely neoplasm. Electronically Signed: Josselyn Cornell MD at 9:04 EDT Tel , Service support ,
--- NOTE | 2019-02-11 07:07 | CT_ITS ---
STUDY: CTA ANGIOGRAM ABDOMEN AND PELVIS with contrast REASON FOR EXAM: Male, 63 years old. Found down, weakness incontinent shortness of breath TECHNIQUE: Thorax images of the abdomen and pelvis are obtained from the base of the lungs to the proximal femurs with reconstructed images after the administration of 100 Isovue 370 COMPARISON: CT scan abdomen and pelvis January 21, 2017 FINDINGS: The esophagus is distended. The stomach is distended. There is a twist around the proximal small bowel around the mid mesentery compatible with a midgut volvulus. There are multiple distended loops of small bowel in the right upper quadrant. The colon appears relatively of lesser caliber and/or decompressed and not well-visualized. The appendix is not visualized. Base of the lungs demonstrate multifocal infiltrates and fluid distended within the bronchi compatible with aspiration pneumonia. There is mild cardiac enlargement there are coronary calcifications. The liver is in the arterial phase mildly fatty infiltrated but homogeneous. The gallbladder appears normal. The spleen pancreas and adrenal glands are grossly unremarkable. Both kidneys show abnormal enhancement administration and moderate hydronephrosis with enhancement of the young of the ureters. This leads to a abnormally thick-walled appearing bladder that measures up to 1.9 cm. There is a March catheter within the bladder that is only partially decompressed around a March likely due to the thick walled edematous bladder wall. Adjacent to the bladder wall there is focal edema which appears to be partially extending into the left-sided extraperitoneal space on the left. Image #215 series 5. The aorta demonstrates a normal caliber in the abdomen is calcified mildly tortuous. There is dense calcification of the bilateral common iliac arteries and the bilateral external iliac arteries. There is dense calcification of the bilateral internal iliac arteries. There is dense calcification of the bilateral common femoral arteries and proximal superficial femoral arteries which likely results in hemodynamic significant narrowing. The IVC appears grossly normal. There are multiple small retroperitoneal lymph nodes. There is a twist of the abdominal structures around the mid mesentery with edema. See image 167 through 211. The superficial hematoma seen in the left rectus muscle prior study is resolved. The body finding is minimal. There is multilevel degenerative change in the thoracolumbar spine. There is multilevel disc space narrowing and endplate sclerosis spondylosis multilevel neural foramina narrowing mild central stenosis. There is degenerative change in the SI joints. There is no visualized fracture. CT/CT ANGIO ABD&PEL W/O&W/DYE IMPRESSION: Multifocal pneumonia due to aspiration fluid in the bronchi. 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 Severely thick-walled appearance of the bladder consistent with cystitis. There is fluid adjacent to the left side of the bladder which may represent the potential for bladder leak and/or inflammatory or leaking fluid from the bladder or potentially the bowel obstruction. Potentially neoplasm could have this appearance but given the circumferential thickening and interval development since 2017 this is felt to represent severe infection. Bilateral pyelonephritis bilateral hydronephrosis. Atherosclerotic disease of the aorta and bilateral common iliac and superficial femoral arteries for which an ultrasound of the lower extremities is recommended when appropriate No visualized acute fracture. Status post sternotomy Degenerative change thoracolumbar spine. N.B. : The above information has been verbally conveyed by Josselyn Cornell MD to Kayla Garcia on 02/11/2019 09:20:30 (ET). Electronically Signed: Josselyn Cornell MD at 9:22 EDT Tel , Service support ,
--- NOTE | 2019-02-11 07:12 | ED.DCSUM_ITS ---
History of Present Illness Chief Complaint: Weakness Informant: Patient, Family Onset: Today Context: Gradual Onset Narrative: Patient is a 63-year-old male with history of coronary artery disease, peripheral vascular disease and COPD presenting with altered mental status and shortness of breath. Patient spoke to his daughter on the phone last night and seemed fine. This morning he called her and was completely disoriented and confused. Family then called 911. Patient was complained of shortness of breath. The patient arrived he is now saying that he is having pain in his left leg. He does not wear oxygen at baseline. Patient is requiring nonrebreather. Patient was an poor living conditions and covered in bedbugs. Family states that patient is regular drinker and had 2 beers yesterday which is most less than he used to drink. He also smokes cigarettes, cigars and marijuana. Patient does have a history of weight loss and not eating/malnutrition. Family states he lives home alone and will not let anyone in his house. He refuses help from nursing aides. Past Medical History - Allergies and Home Meds Allergies/Adverse Reactions: Allergies No Known Allergies Allergy (Verified 11/21/18 15:54) Primary Care Physician: Kenn Parra MD [Primary Care Provider] - Past Medical History: - - Hypertension, hyperlipidemia, alcohol abuse, COPD, peripheral artery disease, coronary artery disease Surgical History: appendectomy, coronary bypass surgery, tonsillectomy, - - appendix out, cabg , tonsils out, eye surgery, heart stent before surgery. Smoking Status: Current every day smoker - Family History Maternal Family History: Family History (Last Reviewed 11/08/18 @ 18:00 by Eboni Jacinto) Father Cancer Mother Murder Brother Colon cancer Brother Diabetes Brother Diabetes Brother Diabetes Sister Diabetes Family History: Reports: - - Patient reports that her mother was murdered Paternal Family History: Family History (Last Reviewed 11/08/18 @ 18:00 by Eboni Jacinto) Father Cancer Mother Murder Brother Colon cancer Brother Diabetes Brother Diabetes Brother Diabetes Sister Diabetes Family History: Reports: Cancer, - - lung cancer Sibling Family History: Family History (Last Reviewed 11/08/18 @ 18:00 by Eboni Jacinto) Father Cancer Mother Murder Brother Colon cancer Brother Diabetes Brother Diabetes Brother Diabetes Sister Diabetes Family History: Reports: Diabetes Review of Systems All systems negative except as indicated - Review of systems is limited secondary to patient's acute condition General: Reports: Malaise, Weight loss Respiratory: Reports: Dyspnea, Cough Physical Exam Vital Signs/Narrative: Vital Signs Temp Pulse Resp BP Pulse Ox 02/11/19 06:41 97.6 F L 112 H 32 H 129/102 H 81 Inital Vital Signs reviewed: Yes General: Cachectic, Unkempt, Acute Distress Head: Normocephalic, Atraumatic Eyes: EOMI, Pale conjunctiva, - - Cloudy left cornea?patient is blind in his left eye ENT: Dry mucous membranes Neck: Supple, Nontender Cardiovascular: Tachycardia, Murmur Respiratory: Decreased Air Movement, - - Coarse breath sounds throughout, tachypnea. Negative for: Retractions Abdomen: Soft, Nontender, Nondistended, Hypoactive bowel sounds Back: Nontender, - - Pressure wounds on sacrum Extremities: Nontender Skin: Pallor, - - Diffuse branching erythematous flat rash on torso (left-sided) as well as left thigh concerning for early ecchymosis Neurological: Alert, Disoriented, Lethargic, - - Decreased strength in the left lower extremity with decreased ability to plantar flex and dorsiflex the left foot, patient is able to raise the left leg off the bed briefly. Negative for: Oriented x3 Psychological: Normal affect, Normal Mood Diagnostic/Tx/Re-eval Chest X-Ray - ED: 1 View, Read by ED Physician, Read by Radiologist, No Acute Disease Laboratory Results - last 24 hr 02/11/19 02/11/19 02/11/19 06:58 07:00 07:00 WBC 38.2 H* RBC 2.92 L Hgb 8.6 L Hct 26.5 L MCV 90.8 MCH 29.5 MCHC 32.5 RDW Std Deviation 61.9 H RDW Coeff of [place] 19.0 H Plt Count 606 H MPV 9.2 Immature Gran % (Auto) 2.500 H Neut % (Auto) 88.4 H Lymph % (Auto) 5.2 L [place] % (Auto) 3.5 Eos % (Auto) 0.1 Baso % (Auto) 0.3 Absolute Neuts (auto) 33.8 H Absolute Lymphs (auto) 1.97 Nucleated RBC % 0 Diff Path Review May foll Platelet Estimate MOD INC PT Cancelled INR Cancelled APTT Cancelled Specimen Type ART Sample Site R Femoral pH 7.22 L Bicarbonate Actual 8.4 L POC Total CO2 9 Base Excess -19 L O2 Saturation 81 L O2 % ABG pCO2 20.5 L ABG pO2 52 L Khang Test Respiration Rate O2 Delivery Device NRB Mask Liter Flow 10.0 EPAP IPAP Blood Gas Notified Whom ED Blood Gas Notified Time 650 Sodium Potassium Chloride Carbon Dioxide Anion Gap BUN Creatinine Estim Creat Clear Calc Est GFR (MDRD) Af Amer Est GFR (MDRD) Non-Af BUN/Creatinine Ratio Glucose Serum Osmolality Lactic Acid Calcium Total Bilirubin AST ALT Alkaline Phosphatase Total Creatine Kinase Troponin I Total Protein Albumin Globulin Albumin/Globulin Ratio Urine Color Urine Clarity Urine pH Ur Specific [place] Urine Protein Urine Glucose (UA) Urine Ketones Urine Occult Blood Urine Nitrite Urine Bilirubin Urine Urobilinogen Ur Leukocyte Esterase Urine RBC Urine WBC Ur Squamous Epith Cells Urine Bacteria Urine Mucus Crossmatch 02/11/19 02/11/19 02/11/19 07:00 07:00 07:00 WBC RBC Hgb Hct MCV MCH MCHC RDW Std Deviation RDW Coeff of [place] Plt Count MPV Immature Gran % (Auto) Neut % (Auto) Lymph % (Auto) [place] % (Auto) Eos % (Auto) Baso % (Auto) Absolute Neuts (auto) Absolute Lymphs (auto) Nucleated RBC % Diff Path Review Platelet Estimate PT INR APTT Specimen Type Sample Site pH Bicarbonate Actual POC Total CO2 Base Excess O2 Saturation O2 % ABG pCO2 ABG pO2 Khang Test Respiration Rate O2 Delivery Device Liter Flow EPAP IPAP Blood Gas Notified Whom Blood Gas Notified Time Sodium 131 L Potassium 4.2 Chloride 100 Carbon Dioxide 10.0 L Anion Gap 21 H BUN 54 H Creatinine 2.40 H Estim Creat Clear Calc 21.76 Est GFR (MDRD) Af Amer 35 L Est GFR (MDRD) Non-Af 29 L BUN/Creatinine Ratio 22.5 H Glucose 69 L Serum Osmolality 294 Lactic Acid 8.2 H* Calcium 8.8 Total Bilirubin 0.50 AST 58 H ALT 30 Alkaline Phosphatase 239 H Total Creatine Kinase 386 H Troponin I < 0.015 Total Protein 7.4 Albumin 1.9 L Globulin 5.5 H Albumin/Globulin Ratio 0.3 L Urine Color Urine Clarity Urine pH Ur Specific [place] Urine Protein Urine Glucose (UA) Urine Ketones Urine Occult Blood Urine Nitrite Urine Bilirubin Urine Urobilinogen Ur Leukocyte Esterase Urine RBC Urine WBC Ur Squamous Epith Cells Urine Bacteria Urine Mucus Crossmatch 02/11/19 02/11/19 02/11/19 07:10 07:35 07:55 WBC RBC Hgb Hct MCV MCH MCHC RDW Std Deviation RDW Coeff of [place] Plt Count MPV Immature Gran % (Auto) Neut % (Auto) Lymph % (Auto) [place] % (Auto) Eos % (Auto) Baso % (Auto) Absolute Neuts (auto) Absolute Lymphs (auto) Nucleated RBC % Diff Path Review Platelet Estimate PT 22.1 H INR 1.9 APTT 45.8 H Specimen Type Sample Site pH Bicarbonate Actual POC Total CO2 Base Excess O2 Saturation O2 % ABG pCO2 ABG pO2 Khang Test Respiration Rate O2 Delivery Device Liter Flow EPAP IPAP Blood Gas Notified Whom Blood Gas Notified Time Sodium Potassium Chloride Carbon Dioxide Anion Gap BUN Creatinine Estim Creat Clear Calc Est GFR (MDRD) Af Amer Est GFR (MDRD) Non-Af BUN/Creatinine Ratio Glucose Serum Osmolality Lactic Acid Calcium Total Bilirubin AST ALT Alkaline Phosphatase Total Creatine Kinase Troponin I Total Protein Albumin Globulin Albumin/Globulin Ratio Urine Color SEE COMMENT BELOW Urine Clarity Turbid Urine pH 7.0 Ur Specific [place] 1.015 Urine Protein 500 H Urine Glucose (UA) Normal Urine Ketones 5 H Urine Occult Blood 150 H Urine Nitrite Negative Urine Bilirubin Negative Urine Urobilinogen Normal Ur Leukocyte Esterase 500 H Urine RBC 0 SEEN Urine WBC >100 SEEN Ur Squamous Epith Cells 0 SEEN Urine Bacteria 0 SEEN Urine Mucus 0 SEEN Crossmatch See Detail 02/11/19 08:40 WBC RBC Hgb Hct MCV MCH MCHC RDW Std Deviation RDW Coeff of [place] Plt Count MPV Immature Gran % (Auto) Neut % (Auto) Lymph % (Auto) [place] % (Auto) Eos % (Auto) Baso % (Auto) Absolute Neuts (auto) Absolute Lymphs (auto) Nucleated RBC % Diff Path Review Platelet Estimate PT INR APTT Specimen Type ART Sample Site R Radial pH 7.29 L Bicarbonate Actual 12.7 L POC Total CO2 14 Base Excess -14 L O2 Saturation 100 H O2 % 100 ABG pCO2 26.6 L ABG pO2 198 H Khang Test NA Respiration Rate 12 O2 Delivery Device Bi / C PAP Liter Flow EPAP 4 IPAP 8 Blood Gas Notified Whom ED Blood Gas Notified Time 839 Sodium Potassium Chloride Carbon Dioxide Anion Gap BUN Creatinine Estim Creat Clear Calc Est GFR (MDRD) Af Amer Est GFR (MDRD) Non-Af BUN/Creatinine Ratio Glucose Serum Osmolality Lactic Acid Calcium Total Bilirubin AST ALT Alkaline Phosphatase Total Creatine Kinase Troponin I Total Protein Albumin Globulin Albumin/Globulin Ratio Urine Color Urine Clarity Urine pH Ur Specific [place] Urine Protein Urine Glucose (UA) Urine Ketones Urine Occult Blood Urine Nitrite Urine Bilirubin Urine Urobilinogen Ur Leukocyte Esterase Urine RBC Urine WBC Ur Squamous Epith Cells Urine Bacteria Urine Mucus Crossmatch Diagnostic Data Chest X-Ray 02/11/19 06:53 IMPRESSION: No acute pulmonary findings. Dilated small bowel loops. Consider acute abdominal series. Electronically Signed: Kenn Nelson MD at 7:30 EDT Tel , Service support , Brain CT 02/11/19 06:55 IMPRESSION: Chronic involutional changes of the brain. Electronically Signed: Medardo Wang MD at 8:32 EDT Tel , Service support , Chest CTA 02/11/19 07:06 IMPRESSION: Distended esophagus with fluid distended stomach. Please see the CT scan of the abdomen and pelvis describing small bowel obstruction. Multifocal aspiration pneumonia. Aspirate within the bilateral lower lobe bronchi. No visualized pulmonary embolism or aortic dissection Partially visualized kidneys with hydronephrosis and striation highly suspicious for pyelonephritis. The markedly thickened bladder wall will be described on the dedicated CT scan of the abdomen and pelvis which is highly suspicious for severe chronic infection and/or potentially less likely neoplasm. Electronically Signed: Josselyn Cornell MD at 9:04 EDT Tel , Service support , - Rhythm Strip Rhythm Strip: Sinus Rhythm Rate: 100 Ectopy: None - EKG Initial EKG Interpretation: Sinus Rhythm, - - Sinus rhythm at a rate of 100 ME interval 174 QRS 72 QT/QTc 374/482 Normal axis No significant ST segment abnormalities Poor baseline secondary to motion artifact - Medical Decision Making She is evaluated for increased confusion and change in mental status. He is also very short of breath. Patient arrives he is quite hypoxic however he has a lot of peripheral vasoconstriction is difficult to get a good pulse ox reading on him. ABG is obtained which does show a metabolic acidosis as well as hypoxia. Patient is placed on high flow nasal cannula and then transitioned to BiPAP which he does tolerate well. Chest x-ray does not show any acute process. Patient does comment that he feels that he cannot move his left lower extremity and it is painful acutely. He does have a history of peripheral vascular disease. In the setting of significant lactic acidosis and critical illness I am concerned for dissection. CTA of the aorta is obtained. Patient has significant laboratory abnormalities including lactic acidosis, significant leukocytosis, anemia and acute kidney injury. Patient is given 30 cc/kg fluid bolus. He does have a history of drinking and elevated anion gap. He is given folic acid and thiamine as well as D5 LR maintenance fluid. CT shows significant abnormalities including multifocal aspiration pneumonia, small bowel obstruction with volvulus, pyelonephritis with hydronephrosis as well as significant cystitis. NG tube was placed. Surgery is consulted. Patient is counseled on his significant medical abnormalities and possible poor prognosis. He verbalizes this. Patient does improve with his breathing with BiPAP. He is not tolerated after about an hour and a half so he switched back to high flow nasal cannula. His O2 saturation did improve significantly with intervention. He started on empiric antibiotics, vancomycin and Rocephin. Final disposition is made out to Dr. Jackson. - Critical Care Time Critical care time (excluding procedures): 30-74 minutes, Discussing w/Patient &/or Family/Certified Rehabilitation Counselor, Discussing w/Consultants, Performing Direct Patient Care at Bedside ED Disposition - Plan for ED Patient: Diagnosis: AMS (altered mental status), Acute respiratory failure with hypoxia, Septic shock, Anemia, CARLOS EDUARDO (acute kidney injury), UTI (urinary tract infection), Volvulus, Multifocal pneumonia, Pyelonephritis, acute, Hydronephrosis Referrals: Kenn Parra MD [Primary Care Provider] -
[2019-02-11 07:15] LABS: Absolute Lymphocyte Count 1.97 X10^3/uL (0.83-4.51); Absolute Neutrophil Count 33.8 X10^3/uL (2.0-7.7); Basophil# 0.12 X10^3/uL; Basophil% 0.3 % (0-1); Eosinophil# 0.02 X10^3/uL; Eosinophils% 0.1 % (0-5); Hematocrit 26.5 % (40-54); Hemoglobin 8.6 g/dL (13.0-16.5); Lymphocyte # 1.97 X10^3/ul (4.0); Lymphocyte % 5.2 % (19-41); Mean Corp Hgb Conc 32.5 g/dL (32-36); Mean Corpuscular Hgb 29.5 pg (27.0-32.0); Mean Corpuscular Volume 90.8 fL (80-94); Mean Platelet Vol. 9.2 fl (6.2-12.0); Monocyte# 1.34 X10^3/uL; Monocyte% 3.5 % (0-10); NRBC Flagged by Analyzer 0 % (0-5); Neutrophil # 33.78 X10^3/uL (2.7-7.7); Neutrophil % 88.4 % (47-70); POSITIVE COUNT YES; POSITIVE DIFFERENTIAL YES; POSITIVE MORPHOLOGY YES; Platelet Count 606 K/mm3 (150-450); RBC Distribution Width SD 61.9 fl (35.1-43.9); Red Blood Count 2.92 M/mm3 (4.6-6.2); White Blood Count 38.2 K/mm3 (4.4-11.0)
[2019-02-11 07:18] LABS: Bacteria 0 SEEN /hpf (None Seen); Mucous, Urine 0 SEEN /hpf (<or=2+); Red Blood Cells-Urine 0 SEEN /hpf (0-5); Squamous Epithelial Cells - UA 0 SEEN /hpf (0-5)
[2019-02-11 07:19] LABS: Differential Indicated SCAN CRITERIA MET
[2019-02-11] MEDS: 0.9% Normal Saline 1,000 ML 999 ML IV ×2 (07:23→08:24)
[2019-02-11 07:25] LABS: Glucose, Dipstick Normal (Normal); Ketone-Dipstick 5 mg/dl (Negative); Leukocyte Esterase-Dipstick 500 /ul (Negative); Nitrite-Dipstick Negative (Negative); Occult Blood-Urine 150 /ul (Negative); Protein-Dipstick 500 mg/dl (Negative); Specific Gravity, Urine 1.015 (1.002-1.030); Urine Bilirubin Dipstick Negative (Negative); Urine Clarity Turbid (Clear); Urine Urobilinogen Normal (Normal)
[2019-02-11 07:26] LABS: Color, Urine SEE COMMENT BELOW (Yellow)
[2019-02-11 07:27] LABS: White Blood Cells >100 SEEN /hpf (0-5)
[2019-02-11 07:37] LABS: ALB/GLOB Ratio 0.3 RATIO (0.9-2.4); AST(SGOT) 58 U/L (15-37); Alanine Aminotransfer ALT/SGPT 30 U/L (16-61); Albumin, Serum 1.9 g/dL (3.2-5.0); Alkaline Phosphatase 239 U/L (45-117); Anion Gap 21 (5-15); BUN 54 mg/dL (7-18); BUN/Creat Ratio 22.5 RATIO (10-20); CPK Total, Creatine Kinase 386 U/L (39-308); Calcium,Total 8.8 mg/dL (8.5-10.1); Chloride 100 mmol/L (98-107); EST Glomerular Filtration Rate 29 mL/min (>60); Est Glom Filt Rate - Afr Amer 35 mL/min (>60); Estimated Creatinine Clearance 21.76 ml/min; Globulin 5.5 g/dL (2.2-4.2); Glucose 69 mg/dL (74-106); Potassium 4.2 mmol/L (3.5-5.1); Protein, Total 7.4 g/dL (6.4-8.2); Sodium Level 131 mmol/L (136-145)
[2019-02-11 07:39] LABS: Lactic Acid 8.2 mmol/L (0.4-2.0)
--- NOTE | 2019-02-11 07:40 | ED.RN ---
DR PLUNKETT NOTIFIED OF LACTIC RESULTS
[2019-02-11 07:45] LABS: Osmolality, Serum 294 mOsm/KG (280-301)
[2019-02-11 07:50] LABS: International Normalized Ratio 1.9; Prothrombin Time (Protime)PT. 22.1 SECONDS (11.7-14.9)
[2019-02-11 07:51] LABS: Partial Thromboplast Time 45.8 Seconds (24.1-36.2)
[2019-02-11 07:58] LABS: Platelet Estimate MOD INC (ADEQ)
--- NOTE | 2019-02-11 07:59 | ED.RN ---
PT CRE ELEVATED AT 2.4. CT CONCERNED ABOUT CRE. DR PLUNKETT NOTIFIED. PER DR PLUNKETT CONTINUE WITH CT WITH CONTRAST
[2019-02-11 08:46] LABS: Base Excess -14 mmol/L (-2 to +2); Bicarbonate 12.7 mmol/L (22-26); Blood Gas Specimen Type ART; EPAP 4; FI02 100; IPAP 8; PO2 198 mmHG (75-100); RR 12; SITE R Radial; SO2 100 % (95-99); Time Given 839; Total Carbon Dioxide 14 mmol/L; pCO2 26.6 mmHg (35-45); pH 7.29 (7.35-7.45)
--- NOTE | 2019-02-11 09:09 | RAD_ITS ---
STUDY: X-RAY - ABDOMEN/PELVIS REASON FOR EXAM: Male, 63 years old. NG tube placement, bowel obstruction TECHNIQUE: Single AP view of the abdomen / pelvis. COMPARISON: None. FINDINGS: Enteric tube extends to left upper abdomen. Sternal wire is noted. There are dilated loops of the small intestine with a non-distended colon consistent with a small bowel obstruction. There is no demonstrated free abdominal air. The visualized liver, spleen and kidneys are grossly normal in size and morphology. Normal soft tissue structures. Normal visualized osseous structures. RAD/Abdomen Single View (Portable) IMPRESSION: Small bowel obstruction. Enteric tube extends to left upper abdomen. Electronically Signed: Ayaz Chilel MD ([place]) at 13:03 EDT , Service support ,
[2019-02-11] MEDS: Dextrose 5%-Lactated Ringers 1,000 ML 100 ML IV (09:49)
[2019-02-11] MEDS: Oxymetazoline 0.05% 1 SPRAY SPRAY.BTL 2 SPRAY NASAL (09:49)
[2019-02-11] MEDS: Ceftriaxone 1 GM/50 ML BAG IV (09:55)
--- NOTE | 2019-02-11 10:51 | CPS ---
Patient started on Airvo for low SpO2. Patient placed on 60 LPM and FiO2 95%. Then transitioned to BiPAP in order to transport down to CT. Patient left on BiPAP until 913, then transitioned back to Airvo 40 LPM and FiO2 74%. After the patient being place on Airvo, the Doctor wanted a NG placed. The patient was transitioned back to a NRB mask for this and eventually placed back on BiPAP. Multiple attempts made to achieve a good pulse ox signal but none were achieved. An ABG was obtained on BiPAP for a SpO2 reading of 96%. [place] QIU
[2019-02-11 11:06] LABS: Reflex Lactate? Y
--- NOTE | 2019-02-11 11:30 | NURSING ---
PER MICA LAYER VALERIE, UNABLE TO LOCATE BEAR HUGGER TO WARM PT. CHG MEAGAN WRIGHT AWARE
--- NOTE | 2019-02-11 12:08 | NURSING ---
REPORT GIVEN TO RANDA RHODESBUSINESS DEAN TEAM [facility]
[2019-02-11] MEDS: 0.9% Normal Saline 1,000 ML 1000 ML IV (12:34)
[2019-02-11] MEDS: Etomidate 20 MG/10 ML Vial 14 MG IV (12:35)
[2019-02-11] MEDS: Rocuronium Bromide 50 MG/5 ML Vial 42 MG IV (12:35)
[2019-02-11] MEDS: Propofol 10MG/Ml 1,000 MG/100 ML Bottle 2.9 MG CONT INF (12:40)
[2019-02-11 12:47] LABS: Lactic Acid 3.6 mmol/L (0.4-2.0)
--- NOTE | 2019-02-11 13:58 | CPS ---
Addendum entered by Ciera Sy 02/14/19 06:51: Transport team aware of results. Original Note: Critical ABG results read to at 1302. [place] [employer]
[2019-02-11 18:59] LABS: Blood Gas Specimen Type ART; FI02 100; Mode A-C; O2 Delivery Device Vent; PEEP 5; RR 14; SITE R BRACHIAL; Vt 450
[2019-02-11 19:00] LABS: Base Excess -13 mmol/L (-2 to +2); Bicarbonate 15.4 mmol/L (22-26); PO2 80 mmHG (75-100); SO2 93 % (95-99); Time Given 1259; Total Carbon Dioxide 17 mmol/L; pCO2 39.3 mmHg (35-45)
[2019-02-12 07:06] LABS: Bedside Glucose 79 mg/dL (70-110)
[2019-02-12 12:08] LABS: Pathologist Review Reviewed
== END 2019-02-11 12:48 | disposition short-term general hospital (02) ==
PROVIDERS: Emergency Provider Emergency Medicine; Family Provider Family Medicine; PCP Family Medicine
DX: A41.9 Sepsis, unspecified organism (principal); D64.9 Anemia, unspecified; J69.0 Pneumonitis due to inhalation of food and vomit; J96.01 Acute respiratory failure with hypoxia; K22.8 Other specified diseases of esophagus; K56.2 Volvulus; R65.21 Severe sepsis with septic shock; E78.5 Hyperlipidemia, unspecified; I10 Essential (primary) hypertension; I25.10 Atherosclerotic heart disease of native coronary artery without angina pectoris; N17.9 Acute kidney failure, unspecified; J44.9 Chronic obstructive pulmonary disease, unspecified; F17.210 Nicotine dependence, cigarettes, uncomplicated; N13.6 Pyonephrosis; I70.0 Atherosclerosis of aorta; Z46.59 Encounter for fitting and adjustment of other gastrointestinal appliance and device; Z95.1 Presence of aortocoronary bypass graft; Z95.5 Presence of coronary angioplasty implant and graft; I73.9 Peripheral vascular disease, unspecified
CPT/HCPCS: 31500; 36415; 36430; 36600; 51702; 70450; 71045; 71275; 74018; 74174; 80053; 81001; 82550; 82803; 82962; 83605; 83930; 84484; 85025; 85610; 85730; 86850; 86900; 86901; 86920; 87040; 87077; 87086; 87088; 87186; 93005; 94002; 94003; 94770; 99251; 99285; J7030; J7050; P9016; Q9967; A4216; G0463; J3490

== ENCOUNTER → 2019-02-22 18:24 | Outpatient (CLI) | payer MEDICAID, SELFPAY ==
[2019-02-11 06:41] VITALS: BMI 15.7
== END ==
PROVIDERS: Family Provider Family Medicine; PCP Family Medicine; Visit Provider Nurse Practitioner Adult Health
DX: D64.9 Anemia, unspecified (principal)
CPT/HCPCS: 36415; 86850; 86900; 86901; 86920; 86922

== ENCOUNTER → 2019-02-23 08:50 | Outpatient (CLI) | payer MEDICAID, SELFPAY ==
[2019-02-11 06:41] VITALS: BMI 15.7
[2019-02-23 08:55] VITALS: BP 109/59; PULSE 91; RESP 16; O2SAT 100; BMI 16.7
[2019-02-23 09:42] VITALS: BP 99/56; PULSE 92; TEMP 36.1; O2SAT 99
[2019-02-23 10:42] VITALS: BP 108/65; PULSE 88; RESP 18; TEMP 36.7; O2SAT 100
[2019-02-23 11:23] VITALS: BP 116/69; PULSE 83; TEMP 36.7; O2SAT 99
[2019-02-23 12:03] VITALS: BP 101/59; PULSE 98; TEMP 36.6; O2SAT 100
[2019-02-23 13:53] VITALS: BP 113/62; PULSE 97; RESP 18; TEMP 37.2; O2SAT 99
== END ==
PROVIDERS: Family Provider Family Medicine; PCP Family Medicine; Referring Provider Family Medicine; Visit Provider Family Medicine
DX: D64.9 Anemia, unspecified (principal)
CPT/HCPCS: 36415; 36430; 86850; 86900; 86901; 86920; 86922; J7040; P9016; A4216

== ENCOUNTER 2019-03-01 00:02 | Inpatient (IN) | payer MEDICAID, SELFPAY ==
[2019-02-23 08:55] VITALS: BMI 16.7
[2019-03-01] VITALS (16 sets, daily range): BP systolic 103–140; BP diastolic 63–87; PULSE 80–103; RESP 15–22; TEMP 36.3–36.7; O2SAT 94–100; BMI 16.9; BMI 14.3; BMI 14.4
--- NOTE | 2019-03-01 00:21 | ED.VIS.GEN ---
History of Present Illness Chief Complaint: Alt LOC Informant: Patient Narrative: Brought in from the care home with reported change in level of consciousness. They stated he was alert and oriented only to one with a low blood pressure of 70 systolic. The symptoms seem to have resolved upon arrival. The patient is ANO x3 answering questions appropriately. He opens his eyes and has a normal conversation. Blood pressure on her arrival is systolic 127. Patient stated he is getting pain medicine at the care home. He recently had surgery approximately 2 weeks ago for a closed bowel loop bowel obstruction. He has a large bladder mass which is being worked up as an outpatient. Patient is not on antibiotics currently. He recently received a blood transfusion and his last hemoglobin was above 9. He denies any complaints at this time. He is on nasal cannula oxygen and this is chronic for him due to his COPD. - Past Medical History (1) Gross hematuria Status: Acute (2) Hyponatremia with decreased serum osmolality Status: Acute (3) Urinary tract infection Status: Acute (4) Atherosclerotic heart disease of [place] coronary artery without angina pectoris Status: Chronic (5) COPD (chronic obstructive pulmonary disease) Status: Chronic (6) ETOH abuse Status: Chronic (7) HLD (hyperlipidemia) Status: Chronic (8) HTN (hypertension) Status: Chronic (9) History of TIA (transient ischemic attack) Status: Chronic (10) History of non-ST elevation myocardial infarction (NSTEMI) Status: Chronic (11) Illicit drug use Status: Chronic (12) Obstructive sleep apnea Status: Chronic (13) PAD (peripheral artery disease) Status: Chronic (14) Raynaud's syndrome Status: Chronic (15) S/P CABG x 4 Status: Chronic Comment: HOFFMAN to LAD, SVG to 1st Diagonal, SVG to 1st OM, SVG to Right PDA, Done @ [facility]. Past Medical History - Allergies and Home Meds Allergies/Adverse Reactions: Allergies No Known Allergies Allergy (Verified 03/01/19 00:06) Prior records reviewed: Yes Past Medical History: - - See problem list Surgical History: appendectomy, coronary bypass surgery, tonsillectomy, - - appendix out, cabg , tonsils out, eye surgery, heart stent before surgery., Bowel obstruction Smoking Status: Current every day smoker Alcohol: Sober - Sober since surgery but prior usage frequent Drugs: None - No usage of marijuana since surgery - Family History Maternal Family History: Family History (Last Reviewed 11/08/18 @ 18:00 by Eboni Jacinto) Father Cancer Mother Murder Brother Colon cancer Brother Diabetes Brother Diabetes Brother Diabetes Sister Diabetes Family History: Reports: - - Patient reports that her mother was murdered Paternal Family History: Family History (Last Reviewed 11/08/18 @ 18:00 by Eboni Jacinto) Father Cancer Mother Murder Brother Colon cancer Brother Diabetes Brother Diabetes Brother Diabetes Sister Diabetes Family History: Reports: Cancer, - - lung cancer Sibling Family History: Family History (Last Reviewed 11/08/18 @ 18:00 by Eboni Jacinto) Father Cancer Mother Murder Brother Colon cancer Brother Diabetes Brother Diabetes Brother Diabetes Sister Diabetes Family History: Reports: Diabetes Review of Systems General: Denies: Chills, Fever, Sweats Eyes: Denies: Visual changes - bilaterally, Diplopia ENT: Denies: Rhinorrhea, Sore throat Cardiovascular: Denies: Chest pain, Palpitations Respiratory: Denies: Dyspnea, Cough, Dyspnea on exertion Gastrointestinal: Reports: Abdominal pain - Chronic since surgery and unchanged. Denies: Nausea, Vomiting, Diarrhea, Melena, Hematochezia Genitourinary: Denies: Dysuria, Hematuria, Frequency Musculoskeletal: Denies: Back pain, Extremity Pain Skin: Reports: Wounds - Postoperative abdominal wound that has been draining serosanguineous fluid recently. Denies: Rash Neurological: Denies: Headache, Weakness, Numbness Physical Exam Vital Signs/Narrative: Vital Signs Temp Pulse Resp BP Pulse Ox 03/01/19 00:08 22 H 03/01/19 00:02 97.7 F L 103 H 22 H 127/77 H 94 General: Cachectic, No Acute Distress, - - Appears tired but opens eyes and answers question. Negative for: Well nourished, Well developed Head: Normocephalic, Atraumatic Eyes: Perrl, EOMI ENT: Moist mucous membranes, No rhinorrhea Neck: Supple, Nontender Cardiovascular: Regular rate, Regular rhythm, No murmurs Respiratory: No distress, CTA bilaterally, Chest nontender Abdomen: Soft, Nondistended, Normal bowel sounds, Tender - Mild tenderness at the surgical site consistent with tenderness from previous surgery. Negative for: Nontender, Guarding Back: Nontender, Normal Inspection Extremities: Nontender, No edema Skin: No rash, - - She has a midline abdominal incision with very slight serosanguineous drainage that is not felt as well he. No significant opening of the wound. He has very mild skin dehiscence in one area no evidence of infection or cellulitis, . Negative for: Normal color Neurological: Alert, Oriented x3, Cranial nerves II-XII grossly intact, Normal Strength, Normal Sensation Psychological: Normal affect, Normal Mood Diagnostic/Tx/Re-eval Impressions Chest X-Ray 03/01/19 00:51 IMPRESSION: Minimal atelectasis left base. No pulmonary edema, congestive heart failure or confluent pneumonia. Stable hyperinflation and postsurgical changes. Electronically Signed: Heike Vilchis MD at 1:29 EST , Service support , 03/01/19 00:51 CXR [Chest 1 View] [RAD] Stat Laboratory Results 03/01/19 03/01/19 03/01/19 00:10 00:10 01:20 WBC 18.2 H RBC 4.01 L Hgb 11.3 L Hct 35.9 L MCV 89.5 MCH 28.2 MCHC 31.5 L RDW Std Deviation 63.1 H RDW Coeff of [place] 19.3 H Plt Count 654 H MPV 9.8 Immature Gran % (Auto) 2.400 H Neut % (Auto) 82.4 H Lymph % (Auto) 8.4 L [place] % (Auto) 6.0 Eos % (Auto) 0.3 Baso % (Auto) 0.5 Absolute Neuts (auto) 15.0 H Absolute Lymphs (auto) 1.53 Nucleated RBC % 0 Sodium 134 L Potassium 5.0 Chloride 109 H Carbon Dioxide 15.0 L Anion Gap 10 BUN 92 H Creatinine 3.11 H Estim Creat Clear Calc 18.08 Est GFR (MDRD) Af Amer 26 L Est GFR (MDRD) Non-Af 22 L BUN/Creatinine Ratio 29.6 H Glucose 78 Lactic Acid Calcium 9.8 Urine Color Brown Urine Clarity Cloudy Urine pH 6.0 Ur Specific [place] 1.010 Urine Protein 100 H Urine Glucose (UA) Normal Urine Ketones Negative Urine Occult Blood 250 H Urine Nitrite Negative Urine Bilirubin Negative Urine Urobilinogen Normal Ur Leukocyte Esterase 500 H Urine RBC 0-5 SEEN Urine WBC >100 SEEN Ur Squamous Epith Cells 0 SEEN Urine Bacteria 1+ Urine Mucus 0 SEEN 03/01/19 01:38 WBC RBC Hgb Hct MCV MCH MCHC RDW Std Deviation RDW Coeff of [place] Plt Count MPV Immature Gran % (Auto) Neut % (Auto) Lymph % (Auto) [place] % (Auto) Eos % (Auto) Baso % (Auto) Absolute Neuts (auto) Absolute Lymphs (auto) Nucleated RBC % Sodium Potassium Chloride Carbon Dioxide Anion Gap BUN Creatinine Estim Creat Clear Calc Est GFR (MDRD) Af Amer Est GFR (MDRD) Non-Af BUN/Creatinine Ratio Glucose Lactic Acid 0.9 Calcium Urine Color Urine Clarity Urine pH Ur Specific [place] Urine Protein Urine Glucose (UA) Urine Ketones Urine Occult Blood Urine Nitrite Urine Bilirubin Urine Urobilinogen Ur Leukocyte Esterase Urine RBC Urine WBC Ur Squamous Epith Cells Urine Bacteria Urine Mucus - Medical Decision Making Patient was given IV fluids for suspected dehydration. His BUN is 92 which is up from 21 on his lab work just recently as an outpatient. His creatinine is 3.1 which is elevated from his most recent levels of 2.3. His white count is 18.2 which is elevated from 12.9 just 3 days ago. His hemoglobin is 11.3 which is elevated from 9.9 just 3 days ago as well. I suspect his white blood cell count is also elevated secondary to urinary tract infection. He has greater than 100 white blood cells and 1+ bacteria in his urine. His lactate is negative. He has a mildly low sodium at 134. His bicarbonate is 15. This is down from a previous level approximately 5 days ago of 21. I feel the patient abdominal wound is infected. Is not really dehisced. There is serosanguineous drainage however. He has been AAO x3. He is nontoxic. He did have a loose bowel movement which was sent for studies. She was given a dose of ceftriaxone for his urinary tract infection. Chest x-ray was negative. Patient was discussed with the hospitalist. I feel he will need to be admitted ED Disposition - Plan for ED Patient: Disposition: Acute Care Hospital [facility] Diagnosis: Sepsis due to urinary tract infection, Dehydration, Renal insufficiency
[2019-03-01 00:27] LABS: Absolute Lymphocyte Count 1.53 X10^3/uL (0.83-4.51); Basophil# 0.09 X10^3/uL; Basophil% 0.5 % (0-1); Eosinophil# 0.05 X10^3/uL; Eosinophils% 0.3 % (0-5); Hematocrit 35.9 % (40-54); Hemoglobin 11.3 g/dL (13.0-16.5); Lymphocyte # 1.53 X10^3/ul (4.0); Lymphocyte % 8.4 % (19-41); Mean Corp Hgb Conc 31.5 g/dL (32-36); Mean Corpuscular Hgb 28.2 pg (27.0-32.0); Mean Corpuscular Volume 89.5 fL (80-94); Mean Platelet Vol. 9.8 fl (6.2-12.0); Monocyte# 1.09 X10^3/uL; NRBC Flagged by Analyzer 0 % (0-5); Neutrophil # 15.02 X10^3/uL (2.7-7.7); Neutrophil % 82.4 % (47-70); Platelet Count 654 K/mm3 (150-450); RBC Distribution Width CV 19.3 % (11.6-14.6); RBC Distribution Width SD 63.1 fl (35.1-43.9); Red Blood Count 4.01 M/mm3 (4.6-6.2); White Blood Count 18.2 K/mm3 (4.4-11.0)
[2019-03-01 00:36] LABS: BUN 92 mg/dL (7-18); Creatinine, Serum 3.11 mg/dL (0.70-1.30); Glucose 78 mg/dL (74-106)
[2019-03-01 00:37] LABS: Anion Gap 10 (5-15); BUN/Creat Ratio 29.6 RATIO (10-20); Calcium,Total 9.8 mg/dL (8.5-10.1); Chloride 109 mmol/L (98-107); EST Glomerular Filtration Rate 22 mL/min (>60); Est Glom Filt Rate - Afr Amer 26 mL/min (>60); Estimated Creatinine Clearance 18.08 ml/min; Sodium Level 134 mmol/L (136-145)
--- NOTE | 2019-03-01 00:51 | RAD_ITS ---
STUDY: X-RAY CHEST REASON FOR EXAM: Male, 63 years old. Cough, altered mental status TECHNIQUE: Single AP portable view of the chest. COMPARISON: 02/11/2019 FINDINGS: There are superimposed monitor leads. The lungs are hyperaerated. Minimal atelectasis left base. There is no focal parenchymal abnormality. The lungs are clear and expanded. There is no demonstrated pleural abnormality. Sternal cerclage wires are present from a prior sternotomy. Normal mediastinum and clinton. Normal visualized pulmonary arteries. There is atherosclerotic calcification of the aortic arch with tortuosity. Normal visualized thoracic spine. Normal visualized ribs, clavicles, and shoulders. There is no demonstrated abnormality of the visualized soft tissue structures of the upper abdomen. RAD/Chest 1 View IMPRESSION: Minimal atelectasis left base. No pulmonary edema, congestive heart failure or confluent pneumonia. Stable hyperinflation and postsurgical changes. Electronically Signed: Heike Vilchis MD at 1:29 EST , Service support ,
[2019-03-01] MEDS: 0.9% Normal Saline 1,000 ML 999 ML IV (01:07)
--- NOTE | 2019-03-01 01:33 | ED.RN ---
INCONTINENCE CARE DONE. PATIENT WAS VERY RED AND IRRITATED ON BUTTUCK, OUTSIDE OF RECTUM, POSTERIOR SCROTUM, ANTERIOR SCROTUM. HIS STOOL WAS SERVIN, FULL OF MUCOUS AND BLOOD. DR. OLMEDO WAS CALLED INTO THE ROOM TO LOOK AT HIS CARLOS AREA AND STOOL. STOOL WAS SENT FOR CULTURE. INCONTINENCE CARE DONE AND A THICK LAYER OF ALOE VESTA WAS APPLIED. PATIENT WAS STRAIGHT CATHED FOR URINE. URINE WAS VERY THICK, SERVIN, PURULENT AND CLOUDY.
[2019-03-01 01:37] LABS: Mucous, Urine 0 SEEN /hpf (<or=2+); Squamous Epithelial Cells - UA 0 SEEN /hpf (0-5)
[2019-03-01 01:38] LABS: Color, Urine Brown (Yellow); Glucose, Dipstick Normal (Normal); Ketone-Dipstick Negative (Negative); Leukocyte Esterase-Dipstick 500 /ul (Negative); Nitrite-Dipstick Negative (Negative); Occult Blood-Urine 250 /ul (Negative); Protein-Dipstick 100 mg/dl (Negative); Urine Bilirubin Dipstick Negative (Negative); Urine Clarity Cloudy (Clear); Urine Urobilinogen Normal (Normal)
[2019-03-01 01:53] LABS: Bacteria 1+ /hpf (None Seen); Red Blood Cells-Urine 0-5 SEEN /hpf (0-5); White Blood Cells >100 SEEN /hpf (0-5)
[2019-03-01 02:10] LABS: Lactic Acid 0.9 mmol/L (0.4-2.0)
--- NOTE | 2019-03-01 02:26 | PCM.HP.STD ---
Problem List (1) CARLOS EDUARDO (acute kidney injury) Status: Acute (2) Sepsis due to urinary tract infection Status: Acute (3) Dehydration Status: Acute (4) Renal insufficiency Status: Acute (5) Urinary tract infection Status: Acute Qualifiers: Urinary tract infection type: acute cystitis Hematuria presence: with hematuria Qualified Code(s): N30.01 - Acute cystitis with hematuria (6) Raynaud's syndrome Status: Chronic (7) History of TIA (transient ischemic attack) Status: Chronic (8) Obstructive sleep apnea Status: Chronic (9) PAD (peripheral artery disease) Status: Chronic (10) S/P CABG x 4 Status: Chronic Comment: HOFFMAN to LAD, SVG to 1st Diagonal, SVG to 1st OM, SVG to Right PDA, Done @ [facility]. (11) COPD (chronic obstructive pulmonary disease) Status: Chronic (12) History of non-ST elevation myocardial infarction (NSTEMI) Status: Chronic (13) Atherosclerotic heart disease of [place] coronary artery without angina pectoris Status: Chronic (14) HTN (hypertension) Status: Chronic (15) HLD (hyperlipidemia) Status: Chronic History of Present Illness Date of Admission: 03/01/19 Chief Complaint: altered mental status and weakness The patient is a 63 year old M with a significant history of previous illicit drug use; previous ethanol abuse; obstructive sleep apnea; COPD on home home oxygen; and TIA who was [facility] because of altered mental status. Reportedly at the [facility] patient was alert and oriented x1. Also patient was hypotensive at the [facility] with blood pressure of 76/36. Further [facility] was concerned the patient might be having dehiscence of his abdominal surgical wound following an abdominal surgery about 2 weeks ago at [facility]. Further it is reported that patient had generalized weakness. Also patient reports fatigue. At the emergency department patient was noted to have severely elevated creatinine; he had loose stools x2. History was sent to the lab for C. difficile and enteric pathogen testing. Further his urine was found to be abnormal. Patient found to tachypnea and elevated white counts. He was diagnosed with sepsis and sepsis protocol was begun from the ED. Of note patient was at a emergency department about 2 weeks ago. He was severely sick. He was intubated at a time and transferred to [facility] for bowel obstruction where he finally had surgery. His bowel surgery was on 1020. Reportedly his surgeon at [facility] was notified of this dehiscence. Also on 02/23/19 patient had 2 units of red blood cell transfusion. And on 02/26/19 his hemoglobin was 9.9; and his white count was 12.9. Past Medical History Past Medical History (Chronic Problems): Chronic Problems (Last Reviewed 03/01/19 @ 04:51 by Miguel Angel Bryan MD) Raynaud's syndrome (Chronic) History of TIA (transient ischemic attack) (Chronic) Obstructive sleep apnea (Chronic) PAD (peripheral artery disease) (Chronic) S/P CABG x 4 (Chronic ~2008) HOFFMAN to LAD, SVG to 1st Diagonal, SVG to 1st OM, SVG to Right PDA, Done @ [facility]. COPD (chronic obstructive pulmonary disease) (Chronic) History of non-ST elevation myocardial infarction (NSTEMI) (Chronic 03/22/18) Atherosclerotic heart disease of [place] coronary artery without angina pectoris (Chronic) HTN (hypertension) (Chronic) HLD (hyperlipidemia) (Chronic) Medical History: Medical History (Last Reviewed 03/01/19 @ 05:34 by Miguel Angel Bryan MD) Raynaud's syndrome (Chronic) I73.00 History of TIA (transient ischemic attack) (Chronic) Z86.73 Obstructive sleep apnea (Chronic) G47.33 PAD (peripheral artery disease) (Chronic) I73.9 COPD (chronic obstructive pulmonary disease) (Chronic) J44.9 History of non-ST elevation myocardial infarction (NSTEMI) (Chronic) Onset Date: 03/22/18 I25.2 Atherosclerotic heart disease of [place] coronary artery without angina pectoris (Chronic) I25.10 Illicit drug use (Inactive) F19.90 ETOH abuse (Inactive) F10.10 HTN (hypertension) (Chronic) I10 HLD (hyperlipidemia) (Chronic) E78.5 Allergies No Known Allergies Allergy (Verified 03/01/19 00:06) Home Medications: Ambulatory Orders Medication Instructions Recorded Albuterol Inhaler [Ventolin Hfa] 2 puff INHALATION Q4H PRN PRN 07/12/17 Fluticasone/Vilanterol [Breo 1 ea IH DAILY 07/12/17 Ellipta 200-25 Mcg INH] Gabapentin [Neurontin] 300 mg PO TIDCM 07/12/17 NIFEdipine [Procardia XL] 90 mg PO DAILY 07/12/17 Nitroglycerin (INPATIENT USE) 0.4 mg SUBLINGUAL Q5M PRN 07/12/17 [Nitrostat] Omeprazole [Prilosec] 20 mg PO DAILY 07/12/17 Isosorbide Mononitrate [Isosorbide 30 mg PO DAILY 03/21/18 Mononitrate ER] Aspirin [Aspir-Low] 81 mg PO DAILY 09/08/18 Atorvastatin Calcium [Lipitor] 40 mg PO QHS 09/08/18 Clopidogrel Bisulfate [Plavix] 75 mg PO DAILY 09/08/18 Fluoxetine HCl 20 mg PO DAILY 09/08/18 Metoprolol Tartrate [Lopressor 25 mg PO BID 09/08/18 (beta sascha)] Folic Acid 1 mg PO DAILY@0800 #30 tab 09/11/18 Multivitamin with Minerals 1 ea PO DAILY #30 tab 09/11/18 [Multivitamins with Minerals] Thiamine Hydrochloride [Vitamin B1] 100 mg PO DAILYCM #30 tab 09/11/18 Ascorbic Acid [Vitamin C] 500 mg PO DAILY@0800 03/01/19 Tamsulosin HCl 0.4 mg PO QHS 03/01/19 Surgical History: Surgical History (Last Reviewed 03/01/19 @ 05:34 by Miguel Angel Bryan MD) S/P CABG x 4 (Chronic) Onset Date: ~2008 Z95.1 HOFFMAN to LAD, SVG to 1st Diagonal, SVG to 1st OM, SVG to Right PDA, Done @ [facility]. History of appendectomy Z90.49 History of tonsillectomy Z90.89 Surgical History: appendectomy, coronary bypass surgery, tonsillectomy, - - appendix out, cabg , tonsils out, eye surgery, heart stent before surgery., Bowel obstruction Lives: Half-Way Smoking Status: Current every day smoker - At one point patient stated that he is an active smoker. At another point he stated that the last time he smoked was 2 months ago. Alcohol: Sober - Sober since surgery but prior usage frequent Drugs: None - No usage of marijuana since surgery - *Family History Maternal Family History: Family History (Last Reviewed 03/01/19 @ 05:34 by Miguel Angel Bryan MD) Father Cancer Mother Murder Brother Colon cancer Brother Diabetes Brother Diabetes Brother Diabetes Sister Diabetes History Items: - - Patient reports that her mother was murdered Paternal Family History: Family History (Last Reviewed 03/01/19 @ 05:34 by Miguel Angel Bryan MD) Father Cancer Mother Murder Brother Colon cancer Brother Diabetes Brother Diabetes Brother Diabetes Sister Diabetes History Items: Cancer, - - lung cancer Sibling Family History: Family History (Last Reviewed 03/01/19 @ 05:34 by Miguel Angel Bryan MD) Father Cancer Mother Murder Brother Colon cancer Brother Diabetes Brother Diabetes Brother Diabetes Sister Diabetes History Items: Diabetes Review of Systems Constitutional: Reports: Anorexia - Patient think that is appetite is fair, Malaise, Weakness, Fatigue. Denies: Chills, Fever HEENT: Denies: Head Aches, Sinus Congestion, Sinus Drainage Cardiovascular: Denies: Chest Pain, Palpitations Respiratory: Denies: Cough, Shortness of breath at rest, Sputum production Gastrointestinal: Denies: Abdominal Pain, Nausea, Vomiting Genitourinary: Denies: Dysuria Musculoskeletal: Denies: Joint Pain, Joint Tenderness Skin: Reports: Wounds. Denies: Rash Neurological: Denies: Numbness, Tingling, Focal weakness Psychiatric: Denies: Anxiety, Depression, Homicidal Ideations, Suicidal Ideations Hematologic/ Lymphatic: Denies: Easy Bruising, Easy Bleeding VTE Information - Inpt Only VTE Present on Admission: No VTE Mechan Device Prophylaxis: None VTE Pharm Prophylaxis ordered?: Yes Patient Problems: Active and Suspected Problems (Last Reviewed 03/01/19 @ 04:51 by Miguel Angel Bryan MD) Sepsis due to urinary tract infection (Acute) Dehydration (Acute) Renal insufficiency (Acute) CARLOS EDUARDO (acute kidney injury) (Acute) - Physical Exam Vitals/I&O's: Vital Signs Temp Pulse Resp BP Pulse Ox 98.1 F 99 15 122/66 H 100 03/01/19 01:32 03/01/19 02:02 03/01/19 02:02 03/01/19 02:02 03/01/19 01:32 Oxygen Flow Rate (L/min) 4 Oxygen Delivery Method Nasal Cannula Weight: 51.9 kg Body Mass Index (BMI) 16.9 Finger Stick Blood Glucose 88 General: Cooperative, Lethargic, - - Oriented to self; place and situation. Does not know the date. Cachetic. HEENT: Atraumatic, PERRLA, EOMI, Normocephalic Neck: Supple, No JVD, Negative Carotid Bruits Lungs: Rhonchi, Tachypneic Cardiovascular: Regular rate, No murmurs Abdomen: Bowel Sounds Present, Soft, Non Tender, - - Midline abdominal incision; with mild erythema; and serous drainage Extremities: No edema, Capillary Refill Less than 3 Seconds, - - Left lateral malleolar ulcer Skin: - - Multiple ulcers at coccyx and sacral area; ulcer to left lateral malleolus; excoriated scrotum Musculoskeletal: No Tenderness to Palpation of Joints or Extremities Neurological: Cranial nerves II-XII grossly intact Psych/Mental Status: Depressed, - - Psychomotor retardation Laboratory Results 03/01/19 00:10: WBC 18.2 H, RBC 4.01 L, Hgb 11.3 L, Hct 35.9 L, MCV 89.5, MCH 28.2, MCHC 31.5 L, RDW Std Deviation 63.1 H, RDW Coeff of [place] 19.3 H, Plt Count 654 H, MPV 9.8, Immature Gran % (Auto) 2.400 H, Neut % (Auto) 82.4 H, Lymph % (Auto) 8.4 L, [place] % (Auto) 6.0, Eos % (Auto) 0.3, Baso % (Auto) 0.5, Absolute Neuts (auto) 15.0 H, Absolute Lymphs (auto) 1.53, Nucleated RBC % 0 03/01/19 00:10: Sodium 134 L, Potassium 5.0, Chloride 109 H, Carbon Dioxide 15.0 L, Anion Gap 10, BUN 92 H, Creatinine 3.11 H, Estim Creat Clear Calc 18.08, Est GFR (MDRD) Af Amer 26 L, Est GFR (MDRD) Non-Af 22 L, BUN/Creatinine Ratio 29.6 H, Glucose 78, Calcium 9.8 03/01/19 01:20: Urine Color Brown, Urine Clarity Cloudy, Urine pH 6.0, Ur Specific [place] 1.010, Urine Protein 100 H, Urine Glucose (UA) Normal, Urine Ketones Negative, Urine Occult Blood 250 H, Urine Nitrite Negative, Urine Bilirubin Negative, Urine Urobilinogen Normal, Ur Leukocyte Esterase 500 H, Urine RBC 0-5 SEEN, Urine WBC >100 SEEN, Ur Squamous Epith Cells 0 SEEN, Urine Bacteria 1+, Urine Mucus 0 SEEN 03/01/19 01:38: Lactic Acid 0.9 Assessment/Plan All Active Problems (Last Reviewed 03/01/19 @ 04:51 by Miguel Angel Bryan MD) Sepsis due to urinary tract infection (Acute) Dehydration (Acute) Renal insufficiency (Acute) CARLOS EDUARDO (acute kidney injury) (Acute) Urinary tract infection (Acute) The patient is a 63 year old M with a significant history of previous illicit drug use; previous Ethanol abuse; tobacco abuse; obstructive sleep apnea; COPD on home home oxygen; and TIA who [facility] because of altered mental status; and hypotension and found to have abnormal urinalysis; diarrhea and meet SIRS criteria consistent with sepsis secondary to cystitis and gastroenteritis. Severe Sepsis SIRS criteria: White count of 18.2; respiratory rate of 22. His white count on 02/11/2019 was 38.2 with bandemia. On this presentation he also has bandemia of 2.4% Severe sepsis criteria: Creatinine of more than 2 Lactic acid was unremarkable. Source: Probable UTI and gastroenteritis Urine culture and blood culture was obtained in the emergency department. Patient was started on broad-spectrum antibiotics of ceftriaxone. Acute cystitis Received ceftriaxone emergency department. Ceftriaxone continued. Gastroenteritis Noted to have greenish mucusy; loose stools. Ceftriaxone as above. Flagyl ordered. C. difficile is negative. CARLOS EDUARDO On presentation his creatinine was 3.11. His creatinine on 02/11/2019 was 2.48. Previous creatinine otherwise has been less than 1. BUN is 92. BUN on 02/11/2019 was 54. Other creatinine has been less than or equal to 10. Likely multifactorial from prerenal secondary dehydration and intrinsic renal for septic effect of sepsis. IV hydration. Avoid nephrotoxins. Will cut down the dose of gabapentin. Acute dehydration Patient with elevated BUN; leukocytosis and increasing hemoglobin from recent labs. His hemoglobin on presentation was 11.3; it was 9.9 on 02/26/2019; and on 02/11/2019 it was 8.6. Of note patient received 2 units of blood on 02/23/2019. IV hydration as above Trend BMP. Hypertension On presentation his blood pressure was fairly stable Home Imdur; metoprolol and nifedipine continued. Parameters placed. Trend blood pressure and adjust blood pressure medications BPH Tamsulosin continued COPD Stable On home ICS and inhaled beta agonist; continued. PRN albuterol continued. Bladder mass Patient is suppose to follow-up with urology at [facility]. CAD Status post CABG/history of TIA; peripheral artery disease/Raynaud's syndrome Aspirin and Plavix continued Decubitus ulcer Coccyx and sacral area as well as left lateral ankle. Calmoseptine to coccygeal and sacral area. Dry dressing to all wounds until wound care see patient. Wound care consult Excoriated scrotum Nystatin topical powder ordered Severe Protein calorie malnutrition Patient BMI of 14.4. Ensure Enlive ordered Nutrition consult Tobacco Abuse Counselled. DVT prophylaxis Subcutaneous Lovenox Code Visit Inpatient E&M: 16918 Init Hosp L3
[2019-03-01] MEDS: Ceftriaxone 1 GM/50 ML BAG IV ×2 (02:46→21:44)
--- NOTE | 2019-03-01 02:58 | ED.RN ---
THIS NURSE CALLED [facility] AND SPOKE TO VINCE TO LET THEM KNOW THAT PATIENT IS GOING TO BE ADMITTED FOR UTI WITH SEPSIS AND DEHYDRATION.
[2019-03-01] MEDS: 0.9% Normal Saline 1,000 ML 75 ML IV ×2 (05:17→23:40)
[2019-03-01] MEDS: metroNIDAZOLE 500 MG/100 ML BAG 100 MG IV ×3 (06:10→20:12)
[2019-03-01] MEDS: Nystatin Powder 15gm Bottle 1 APPLIC TOPICAL ×3 (06:29→20:56)
[2019-03-01] MEDS: Menthol/Lanolin/Calamine/Znox 113 GM Tube 1 APPLIC TOPICAL ×4 (06:30→20:57)
[2019-03-01] MEDS: Albuterol 2.5 MG/3 ML VIAL.NEB. INHALATION ×3 (07:54→19:07)
[2019-03-01] MEDS: Budesonide Respules 0.5 MG/2 ML AMPUL.NEB. INHALATION ×2 (07:57→19:07)
[2019-03-01] MEDS: Gabapentin 100 MG Capsule PO ×3 (08:50→17:11)
[2019-03-01] MEDS: Aspirin E.C. 81 MG Tablet PO (08:50)
[2019-03-01] MEDS: Ascorbic Acid 500 MG Tablet PO (08:50)
[2019-03-01] MEDS: Thiamine Hydrochloride 100 MG Tablet PO (08:50)
[2019-03-01] MEDS: Folic Acid 1 MG Tablet PO (08:50)
[2019-03-01] MEDS: Multivitamins,Ther W-Minerals Tablet 1 TABLET PO (08:50)
--- NOTE | 2019-03-01 09:23 | NURSING ---
wound photo: left lateral malleolus
--- NOTE | 2019-03-01 09:24 | NURSING ---
wound photo: abdomen
--- NOTE | 2019-03-01 09:24 | NURSING ---
wound photo: buttocks
--- NOTE | 2019-03-01 09:52 | CASEMGMT ---
Addendum entered by Maranda Rojas 03/01/19 14:59: CALISTA received call from Debi at [facility] stating pre-cert has been obtained and pt can be admitted today or tomorrow. CALISTA updated Debi that per physician pt is not medically cleared for discharge today hopefully tomorrow. Debi states understanding. Addendum entered by Maranda Rojas 03/01/19 12:17: CALISTA faxed updated PT/OT to Debi at [facility] and asked for Debi to submit for pre-cert. Original Note: Social Work Note Pt is listed as being from [facility]. CALISTA met with pt and introduced self and role at [facility]. Pt is alert and orientated but does appear to have difficulty answering questions. Pt confirms that he came from [facility]. SW asked pt if is plan is to return to [facility]. Pt didn't answer. Pt also couldn't tell this worker how long he has been at [facility]. CALISTA asked pt again if his plan is to return. Pt states I Don't know what the plan is, I need to figure out what's wrong. CALISTA informed pt that this worker is just trying to confirm discharge plans so when pt is medically cleared, a plan is confirmed. CALISTA asked pt if his family will be in today. Pt states yes. CALISTA asked pt if this worker could call his family. Pt states his daughter never answers the phone but gave this worker permission to call his emergency contact Dorita Webber. CALISTA attempted to call pt's daughter Constance but it didn't ring and went straight to voicemail which hasn't been set up. CALISTA placed a call to pt's emergency contact Dorita. Dorita states she is the emergency contact for pt as pt's daughter never answers the phone and can't get a hold of her. Dorita confirms that pt is from [facility] and the plan will be for pt to return. Dorita states she will need to be updated on everything as she is the emergency contact. CALISTA updated Dorita that this worker will update staff to provide updates to Dorita as needed. Dorita states understanding. CALISTA placed a call to Debi at [facility]. Debi states pt was skilled and will need pre-cert to return. CALISTA informed Debi that this worker will fax over updated clinicals and once PT/OT notes are complete this worker will fax those over so she can submit for pre-cert. Debi states understanding. faxed updated clinicals to Debi at [facility]. Plan: Return to [facility] skilled pending pre-cert Maranda Rojas [employer], [employer]
[2019-03-01] MEDS: Clopidogrel Bisulfate 75 MG Tablet PO (10:32)
[2019-03-01] MEDS: NIFEdipine 90 MG Tablet PO (10:32)
[2019-03-01] MEDS: FLUoxetine 20 MG Capsule PO (10:32)
[2019-03-01] MEDS: Isosorbide Mononitrate 30 MG Tablet PO (10:32)
[2019-03-01] MEDS: Metoprolol Tartrate 25 MG Tablet PO ×2 (10:32→20:51)
[2019-03-01] MEDS: Pantoprazole Sodium 20 MG Tablet PO (10:32)
[2019-03-01] MEDS: Collagenase 30gm Tube 1 APPLIC TOPICAL (10:34)
[2019-03-01] MEDS: Enoxaparin 30 MG/0.3 ML Syringe SC (10:38)
--- NOTE | 2019-03-01 12:59 | PCM.HOSP.N ---
Hospitalist Note 63-year-old gentleman was admitted for for generalized weakness and altered mental status. Patient has history of chronic alcohol use, sleep apnea, COPD on home oxygen and [facility]. Patient had laparotomy for small bowel obstruction secondary to volvulus and a small incisional wound dehiscence with serous fluid discharge. Patient also has firm swelling on the lower part of incision. There is tenderness around incisional wound. Dr. Mederos knows the patient's history from periphery although she has not seen him. Patient generalized debilitation with diffuse muscle atrophy in the extremities, cheeks and temples suggestive of severe protein calorie malnutrition.
--- NOTE | 2019-03-01 13:04 | PCM.PN.HOSP ---
Patient Problems: Active and Suspected Problems (Last Reviewed 03/01/19 @ 05:34 by Miguel Angel Bryan MD) Sepsis due to urinary tract infection (Acute) Dehydration (Acute) Renal insufficiency (Acute) CARLOS EDUARDO (acute kidney injury) (Acute) Subjective: 63-year-old gentleman was admitted for for generalized weakness and altered mental status. Patient has history of chronic alcohol use, sleep apnea, COPD on home oxygen and TIA and was admitted from intermediate. Patient had laparotomy for small bowel obstruction secondary to volvulus and a small incisional wound dehiscence with serous fluid discharge. Patient also has firm swelling on the lower part of incision. There is tenderness around incisional wound. Dr. Mederos knows the patient's history from periphery although she has not seen him. Patient generalized debilitation with diffuse muscle atrophy in the extremities, cheeks and temples suggestive of severe protein calorie malnutrition. Patient also had loose bowel movement x2 and a stool test was sent but came out negative. CT abdomen from February 11, 2019 showed distended esophagus, distended stomach and distended small bowel secondary to midgut volvulus Vitals/I&O's: Vital Signs Temp Pulse Resp BP Pulse Ox 97.3 F L 80 18 140/76 H 100 03/01/19 09:00 03/01/19 11:30 03/01/19 09:00 03/01/19 09:00 03/01/19 09:00 Oxygen Flow Rate (L/min) 2 Oxygen Delivery Method Nasal Cannula Weight: 104 lb 11.513 oz Body Mass Index (BMI) 14.3 Finger Stick Blood Glucose 88 Intake and Output for Last 24 Hours 02/27/19 02/28/19 03/01/19 23:59 23:59 23:59 Intake Total 1217.5 / 1217.5 Balance 1217.5 / 1217.5 General: Confused, Disoriented, Lethargic HEENT: Atraumatic, PERRLA, EOMI, Normocephalic, - - Hard of hearing Neck: Supple, No JVD, Negative Carotid Bruits Lungs: No rhonchi, No wheeze, No rales, Diminished - Air entry is diminished Cardiovascular: Regular rate, Regular Rhythm, Normal S1, Normal S2, No murmurs Abdomen: Bowel Sounds Present, Soft, - - Mild tenderness of her mid abdomen around incision scar. Serous fluid discharge from wound dehiscence Extremities: No edema, Capillary Refill Less than 3 Seconds Skin: Ulcer/ Wound - Surgical wound dehiscence Unstageable left lateral malleolus round ulcer. stage II left buttock decubitus ulcer about 1 cm with redness around it. Unstageable right buttock decubitus ulcer Musculoskeletal: Arthritic Changes, Muscle Wasting Neurological: - - Weakness in lower extremities, exact quantification difficult as patient is altered mental status Microbiology Past 72 Hours 03/01/19 01:20 Stool Enteric Bacteriology - Final 03/01/19 01:20 Stool C. difficile DNA Amplification - Final Laboratory Results 03/01/19 00:10: WBC 18.2 H, RBC 4.01 L, Hgb 11.3 L, Hct 35.9 L, MCV 89.5, MCH 28.2, MCHC 31.5 L, RDW Std Deviation 63.1 H, RDW Coeff of [place] 19.3 H, Plt Count 654 H, MPV 9.8, Immature Gran % (Auto) 2.400 H, Neut % (Auto) 82.4 H, Lymph % (Auto) 8.4 L, [place] % (Auto) 6.0, Eos % (Auto) 0.3, Baso % (Auto) 0.5, Absolute Neuts (auto) 15.0 H, Absolute Lymphs (auto) 1.53, Nucleated RBC % 0 03/01/19 00:10: Sodium 134 L, Potassium 5.0, Chloride 109 H, Carbon Dioxide 15.0 L, Anion Gap 10, BUN 92 H, Creatinine 3.11 H, Estim Creat Clear Calc 18.08, Est GFR (MDRD) Af Amer 26 L, Est GFR (MDRD) Non-Af 22 L, BUN/Creatinine Ratio 29.6 H, Glucose 78, Calcium 9.8 03/01/19 01:20: Urine Color Brown, Urine Clarity Cloudy, Urine pH 6.0, Ur Specific [place] [employer] 1.010, Urine Protein 100 H, Urine Glucose (UA) Normal, Urine Ketones Negative, Urine Occult Blood 250 H, Urine Nitrite Negative, Urine Bilirubin Negative, Urine Urobilinogen Normal, Ur Leukocyte Esterase 500 H, Urine RBC 0-5 SEEN, Urine WBC >100 SEEN, Ur Squamous Epith Cells 0 SEEN, Urine Bacteria 1+, Urine Mucus 0 SEEN 03/01/19 01:38: Lactic Acid 0.9 Current Medications Acetaminophen (Tylenol) 650 mg PO Q6H PRN PRN PRN Reason: Pain Score 1-3/Temp > 100.7 F Albuterol Sulfate (Ventolin Aerosols) 2.5 mg INHALATION Q2H PRN PRN PRN Reason: SOB/Wheezing Albuterol Sulfate (Ventolin Aerosols) 2.5 mg INHALATION Q2H PRN PRN PRN Reason: Shortness of Breath/Wheezing Albuterol Sulfate (Ventolin Aerosols) 2.5 mg INHALATION Q6HWA.RT [facility] Last Admin: 03/01/19 07:54 Dose: 2.5 mg Documented by: Ascorbic Acid (Vitamin C) 500 mg PO DAILY@0800 [facility] Last Admin: 03/01/19 08:50 Dose: 500 mg Documented by: Aspirin (Ecotrin) 81 mg PO DAILY [facility] Last Admin: 03/01/19 08:50 Dose: 81 mg Documented by: Atorvastatin Calcium (Lipitor) 40 mg PO QHS [facility] Budesonide (Pulmicort Aerosol) 0.5 mg INHALATION Q12H.RT [facility] Last Admin: 03/01/19 07:57 Dose: 0.5 mg Documented by: Calamine/Phenol (Calmoseptine Ointment) 1 applic TOPICAL TID [facility]; Protocol Last Admin: 03/01/19 08:49 Dose: 1 applicatio Documented by: Clopidogrel Bisulfate (Plavix) 75 mg PO DAILY [facility] Last Admin: 03/01/19 10:32 Dose: 75 mg Documented by: Collagenase (Santyl) 1 applic TOPICAL DAILY [facility]; Protocol Last Admin: 03/01/19 10:34 Dose: 1 applic Documented by: Dextrose (D50w Syringe) 0 gm IV X1 PRN; Protocol PRN Reason: Hypoglycemia Enoxaparin Sodium (Lovenox) 30 mg SC DAILY@1000 [facility] Last Admin: 03/01/19 10:38 Dose: 30 mg Documented by: Fluoxetine HCl (Prozac) 20 mg PO DAILY [facility] Last Admin: 03/01/19 10:32 Dose: 20 mg Documented by: Folic Acid (Folic Acid) 1 mg PO DAILY@0800 [facility] Last Admin: 03/01/19 08:50 Dose: 1 mg Documented by: Gabapentin (Neurontin) 100 mg PO TIDCM [facility] Last Admin: 03/01/19 08:50 Dose: 100 mg Documented by: Glucagon () 1 mg IM .X1 PRN PRN Reason: Hypoglycemia Sodium Chloride () 250 mls @ 15 mls/hr IV .[id number] PRN PRN Reason: Saline Flush Sodium Chloride () 1,000 mls @ 75 mls/hr IV .[id number] [facility] Stop: 03/02/19 07:50 Last Infusion: 03/01/19 07:10 Dose: 75 mls/hr Documented by: Metronidazole (Flagyl) 500 mg in 100 mls @ 100 mls/hr IV Q8H [facility] Last Infusion: 03/01/19 07:10 Dose: Infused Documented by: Ceftriaxone Sodium (Rocephin) 1 gm in 50 mls @ 100 mls/hr IV Q12 [facility] Isosorbide Mononitrate (Imdur) 30 mg PO DAILY [facility] Last Admin: 03/01/19 10:32 Dose: 30 mg Documented by: Metoprolol Tartrate (Lopressor (Beta Reilly)) 25 mg PO BID [facility] Last Admin: 03/01/19 10:32 Dose: 25 mg Documented by: Multivitamins/Minerals (Multivitamin With Minerals) 1 tablet PO DAILY@0800 [facility] Last Admin: 03/01/19 08:50 Dose: 1 tablet Documented by: Nifedipine (Procardia Xl) 90 mg PO DAILY [facility] Last Admin: 03/01/19 10:32 Dose: 90 mg Documented by: Nutritional Formula (Lactose Free) (Ensure Enlive) 120 ml PO 4X/DAY [facility] Last Admin: 03/01/19 08:50 Dose: 120 ml Documented by: Nystatin (Mycostatin Powder) 1 applic TOPICAL TID [facility]; Protocol Last Admin: 03/01/19 06:29 Dose: 1 applicatio Documented by: Ondansetron HCl (Zofran) 4 mg IV Q8H PRN PRN PRN Reason: NAUSEA/VOMITING Pantoprazole Sodium (Protonix) 20 mg PO DAILY [facility] Last Admin: 03/01/19 10:32 Dose: 20 mg Documented by: Sodium Chloride () 10 - 40 ml IV UD PRN PRN Reason: SALINE FLUSH Tamsulosin HCl (Flomax) 0.4 mg PO QHS [facility] Thiamine HCl (Vitamin B1) 100 mg PO DAILYCM [facility] Last Admin: 03/01/19 08:50 Dose: 100 mg Documented by: STROKE Vital Signs/Narrative: Vital Signs Pulse 03/01/19 11:30 80 03/01/19 10:32 101 H Medical Necessity - Tobacco Use Smoking Status: Current every day smoker - At one point patient stated that he is an active smoker. At another point he stated that the last time he smoked was 2 months ago. Assessment/Plan All Active Problems (Last Reviewed 03/01/19 @ 05:34 by Miguel Angel Bryan MD) Sepsis due to urinary tract infection (Acute) Dehydration (Acute) Renal insufficiency (Acute) CARLOS EDUARDO (acute kidney injury) (Acute) Urinary tract infection (Acute) 63-year-old gentleman was admitted for for generalized weakness and altered mental status. Patient has history of chronic alcohol use, sleep apnea, COPD on home oxygen and TIA and was admitted from intermediate. Patient had laparotomy for small bowel obstruction secondary to volvulus and a small incisional wound dehiscence with serous fluid discharge. Patient also has firm swelling on the lower part of incision. There is tenderness around incisional wound. Dr. Mederos knows the patient's history from periphery although she has not seen him. Patient generalized debilitation with diffuse muscle atrophy in the extremities, cheeks and temples suggestive of severe protein calorie malnutrition. Patient also had loose bowel movement x2 and a stool test was sent but came out negative. 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 Severe sepsis (tachycardia, leukocytosis 18,000, tachypnea and bandemia) probably from UTI/gastroenteritis lactic acid unremarkable. Creatinine elevated. Probably UTI with WBC more than 100 cells, LE 500, nitrite negative. Patient on ceftriaxone and Flagyl. C. difficile is ruled out. Enteric bacteriology panel negative. Will discontinue Levaquin. Blood cultures x2 and urine culture are pending. 2. CARLOS EDUARDO multiple etiologies predominantly prerenal secondary to dehydration Admitting BUN/creatinine 92/3.11. On 02/11/2019 was 54/2.48. Previous creatinine otherwise has been less than 1. Most probably multifactorial from prerenal secondary dehydration and intrinsic renal for septic effect of sepsis. IV hydration. Avoid nephrotoxins. Medications as per estimated creatinine clearance. 3. Recent small bowel obstruction secondary to volvulus status post laparotomy: There is also firm swelling over the lower end of incision wound. This seems like a scar tissue. Will discuss with [facility] surgeon. Dr. Mederos was placed. Hypertension: Blood pressure is fairly controlled. Home Imdur; metoprolol and nifedipine continued. Parameters placed. BPH Tamsulosin continued COPD Stable On home ICS and inhaled beta agonist; continued. PRN albuterol continued. Bladder mass follow-up with urology at [facility]. CAD Status post CABG/history of TIA; peripheral artery disease/Raynaud's syndrome Aspirin and Plavix continued Stage II left buttock decubitus ulcer and unstageable right buttock unstageable decubitus ulcer and left lateral malleolus unstageable decubitus ulcer: Patient was seen and evaluated by wound nurseDawna. Calmoseptine to coccygeal and sacral area. Severe Protein calorie malnutrition Patient BMI of 14.4. Ensure Enlive ordered Nutrition consult Tobacco Abuse Counselled. DVT prophylaxis Subcutaneous Lovenox
--- NOTE | 2019-03-01 15:06 | NURSING ---
Pediatric ostomy appliance intact to abdomen over dehisced site. Emptied for 10ml serous fluid.
--- NOTE | 2019-03-01 16:44 | CT_ITS ---
STUDY: CT ABDOMEN AND PELVIS WITHOUT CONTRAST REASON FOR EXAM: Male, 63 years old. Abdominal pain RADIATION DOSAGE (If Supplied By Facility): DLP = ( 271.80 ) mGycm TECHNIQUE: Transaxial images were obtained from the dome of the diaphragm to the symphysis pubis without oral contrast, and without intravenous contrast. Sagittal and coronal images were reconstructed. Individualized dose optimization techniques were used for this CT. COMPARISON: CT abdomen and pelvis February 11, 2019 FINDINGS: Evaluation of the abdominal viscera is limited in the absence of intravenous contrast. Left base atelectasis is present. The visualized portions of the heart and pericardium are within normal limits. There are no calcified gallstones present. The liver demonstrates an unremarkable unenhanced appearance. The spleen is normal in size. The pancreas demonstrates an unremarkable unenhanced appearance. The adrenal glands are within normal limits. There is a moderate to prominent bilateral hydroureteronephrosis. There is moderate distention of the urinary bladder. Normal visualized stomach. There is diffuse distention of the small bowel with air-fluid levels. There is no evidence of obstruction. The appendix has been removed. The aorta is normal in caliber. There is an anterior left pelvic 10.5 x 6.8 cm fluid collection and right posterior pelvic 10.3 x 7.7 cm fluid collection. Additional smaller collections are present. There is no lymphadenopathy. There are no destructive osseous lesions. There is mild fluid along the midline incision with a small collection measuring 2.4 x 0.9 cm in cross-section. A small amount of gas is present within the fluid adjacent to the umbilicus. CT/Abdomen/Pelvis without Cont IMPRESSION: Mildly prominent bilateral hydroureteronephrosis. Moderate distention of the urinary bladder. Diffuse distention of the small bowel with air-fluid levels, likely representing ileus. Pelvic/lower abdominal collections, nonspecific which likely represent postoperative seromas given recent surgery. Mild fluid along the midline incision. Electronically Signed: Dontae Crow, at 21:02 EST Tel , Service support ,
[2019-03-01] MEDS: 0.9% Saline Lock 10 ML Syringe IV (17:11)
--- NOTE | 2019-03-01 18:32 | PN.SURG_ITS ---
Patient Problems: Active and Suspected Problems (Last Reviewed 03/01/19 @ 05:34 by Miguel Angel Bryan MD) Sepsis due to urinary tract infection (Acute) Dehydration (Acute) Renal insufficiency (Acute) CARLOS EDUARDO (acute kidney injury) (Acute) Subjective: patient complaint of abdominal pain, recently underwent surgery at [facility] for bowel obstruction he is severe malnourished and appears to have a fascial dehiscence with leakage of peritoneal fluid - Physical Exam Vitals/I&O's: Vital Signs Temp Pulse Resp BP Pulse Ox 97.7 F L 94 20 H 120/69 100 03/01/19 14:00 03/01/19 14:00 03/01/19 14:00 03/01/19 14:00 03/01/19 15:05 Oxygen Flow Rate (L/min) 4 Oxygen Delivery Method Nasal Cannula Weight: 47.5 kg Body Mass Index (BMI) 14.3 Finger Stick Blood Glucose 88 Intake and Output for Last 24 Hours 02/27/19 02/28/19 03/01/19 23:59 23:59 23:59 Intake Total 2357.5 / 2357.5 Output Total 300 / 300 Balance 2057.5 / 2057.5 General: Alert, Oriented x3 Oral: Moist Mucosa Neck: Supple Lungs: Normal air movement Abdomen: Soft, - - open wound with drainage of clear peritoneal fluid Microbiology Past 72 Hours 03/01/19 01:20 Stool Enteric Bacteriology - Final 03/01/19 01:20 Stool C. difficile DNA Amplification - Final Laboratory Results 03/01/19 00:10: WBC 18.2 H, RBC 4.01 L, Hgb 11.3 L, Hct 35.9 L, MCV 89.5, MCH 28.2, MCHC 31.5 L, RDW Std Deviation 63.1 H, RDW Coeff of [place] 19.3 H, Plt Count 654 H, MPV 9.8, Immature Gran % (Auto) 2.400 H, Neut % (Auto) 82.4 H, Lymph % (Auto) 8.4 L, [place] % (Auto) 6.0, Eos % (Auto) 0.3, Baso % (Auto) 0.5, Absolute Neuts (auto) 15.0 H, Absolute Lymphs (auto) 1.53, Nucleated RBC % 0 03/01/19 00:10: Sodium 134 L, Potassium 5.0, Chloride 109 H, Carbon Dioxide 15.0 L, Anion Gap 10, BUN 92 H, Creatinine 3.11 H, Estim Creat Clear Calc 18.08, Est GFR (MDRD) Af Amer 26 L, Est GFR (MDRD) Non-Af 22 L, BUN/Creatinine Ratio 29.6 H , Glucose 78, Calcium 9.8 03/01/19 01:20: Urine Color Brown, Urine Clarity Cloudy, Urine pH 6.0, Ur Specific [place] 1.010, Urine Protein 100 H, Urine Glucose (UA) Normal, Urine Ketones Negative, Urine Occult Blood 250 H, Urine Nitrite Negative, Urine Bilirubin Negative, Urine Urobilinogen Normal, Ur Leukocyte Esterase 500 H, Urine RBC 0-5 SEEN, Urine WBC >100 SEEN, Ur Squamous Epith Cells 0 SEEN, Urine Bacteria 1+, Urine Mucus 0 SEEN 03/01/19 01:38: Lactic Acid 0.9 Current Medications Acetaminophen (Tylenol) 650 mg PO Q6H PRN PRN PRN Reason: Pain Score 1-3/Temp > 100.7 F Albuterol Sulfate (Ventolin Aerosols) 2.5 mg INHALATION Q2H PRN PRN PRN Reason: SOB/Wheezing Albuterol Sulfate (Ventolin Aerosols) 2.5 mg INHALATION Q2H PRN PRN PRN Reason: Shortness of Breath/Wheezing Albuterol Sulfate (Ventolin Aerosols) 2.5 mg INHALATION Q6HWA.RT [facility] Last Admin: 03/01/19 13:21 Dose: 2.5 mg Documented by: Ascorbic Acid (Vitamin C) 500 mg PO DAILY@0800 [facility] Last Admin: 03/01/19 08:50 Dose: 500 mg Documented by: Aspirin (Ecotrin) 81 mg PO DAILY [facility] Last Admin: 03/01/19 08:50 Dose: 81 mg Documented by: Atorvastatin Calcium (Lipitor) 40 mg PO QHS [facility] Budesonide (Pulmicort Aerosol) 0.5 mg INHALATION Q12H.RT [facility] Last Admin: 03/01/19 07:57 Dose: 0.5 mg Documented by: Calamine/Phenol (Calmoseptine Ointment) 1 applic TOPICAL TID [facility]; Protocol Last Admin: 03/01/19 13:41 Dose: 1 applicatio Documented by: Clopidogrel Bisulfate (Plavix) 75 mg PO DAILY [facility] Last Admin: 03/01/19 10:32 Dose: 75 mg Documented by: Collagenase (Santyl) 1 applic TOPICAL DAILY [facility]; Protocol Last Admin: 03/01/19 10:34 Dose: 1 applic Documented by: Dextrose (D50w Syringe) 0 gm IV X1 PRN; Protocol PRN Reason: Hypoglycemia Enoxaparin Sodium (Lovenox) 30 mg SC DAILY@1000 [facility] Last Admin: 03/01/19 10:38 Dose: 30 mg Documented by: Fluoxetine HCl (Prozac) 20 mg PO DAILY [facility] Last Admin: 03/01/19 10:32 Dose: 20 mg Documented by: Folic Acid (Folic Acid) 1 mg PO DAILY@0800 [facility] Last Admin: 03/01/19 08:50 Dose: 1 mg Documented by: Gabapentin (Neurontin) 100 mg PO TIDCM [facility] Last Admin: 03/01/19 17:11 Dose: 100 mg Documented by: Glucagon () 1 mg IM .X1 PRN PRN Reason: Hypoglycemia Sodium Chloride () 250 mls @ 15 mls/hr IV .[id number] PRN PRN Reason: Saline Flush Sodium Chloride () 1,000 mls @ 75 mls/hr IV .[id number] [facility] Stop: 03/02/19 07:50 Last Infusion: 03/01/19 17:14 Dose: 0 mls/hr Documented by: Metronidazole (Flagyl) 500 mg in 100 mls @ 100 mls/hr IV Q8H [facility] Last Infusion: 03/01/19 14:40 Dose: Infused Documented by: Ceftriaxone Sodium (Rocephin) 1 gm in 50 mls @ 100 mls/hr IV Q12 [facility] Isosorbide Mononitrate (Imdur) 30 mg PO DAILY [facility] Last Admin: 03/01/19 10:32 Dose: 30 mg Documented by: Metoprolol Tartrate (Lopressor (Beta Reilly)) 25 mg PO BID [facility] Last Admin: 03/01/19 10:32 Dose: 25 mg Documented by: Multivitamins/Minerals (Multivitamin With Minerals) 1 tablet PO DAILY@0800 [facility] Last Admin: 03/01/19 08:50 Dose: 1 tablet Documented by: Nifedipine (Procardia Xl) 90 mg PO DAILY [facility] Last Admin: 03/01/19 10:32 Dose: 90 mg Documented by: Nutritional Formula (Lactose Free) (Ensure Enlive) 120 ml PO 4X/DAY [facility] Last Admin: 03/01/19 17:11 Dose: 120 ml Documented by: Nystatin (Mycostatin Powder) 1 applic TOPICAL TID [facility]; Protocol Last Admin: 03/01/19 15:01 Dose: 1 applicatio Documented by: Ondansetron HCl (Zofran) 4 mg IV Q8H PRN PRN PRN Reason: NAUSEA/VOMITING Pantoprazole Sodium (Protonix) 20 mg PO DAILY [facility] Last Admin: 03/01/19 10:32 Dose: 20 mg Documented by: Sodium Chloride () 10 - 40 ml IV UD PRN PRN Reason: SALINE FLUSH Last Admin: 03/01/19 17:11 Dose: 20 ml Documented by: Tamsulosin HCl (Flomax) 0.4 mg PO QHS [facility] Thiamine HCl (Vitamin B1) 100 mg PO DAILYCM [facility] Last Admin: 03/01/19 08:50 Dose: 100 mg Documented by: Medical Necessity - Tobacco Use Smoking Status: Current every day smoker Assessment/Plan All Active Problems (Last Reviewed 03/01/19 @ 05:34 by Miguel Angel Bryan MD) Sepsis due to urinary tract infection (Acute) Dehydration (Acute) Renal insufficiency (Acute) CARLOS EDUARDO (acute kidney injury) (Acute) Urinary tract infection (Acute) Impression - wound dehiscence, malnourished Plan: will obtain CT scan to rule out any other pathology
[2019-03-01] MEDS: Tamsulosin HCl 0.4 MG Capsule PO (20:51)
[2019-03-01] MEDS: Atorvastatin Calcium 40 MG Tablet PO (20:51)
[2019-03-02] VITALS (13 sets, daily range): BP systolic 89–114; BP diastolic 51–62; PULSE 80–103; RESP 16–20; TEMP 36.4–37.6; O2SAT 96–100
[2019-03-02] MEDS: metroNIDAZOLE 500 MG/100 ML BAG 100 MG IV ×2 (06:08→12:22)
[2019-03-02] MEDS: Nystatin Powder 15gm Bottle 1 APPLIC TOPICAL ×3 (06:09→21:23)
[2019-03-02] MEDS: Menthol/Lanolin/Calamine/Znox 113 GM Tube 1 APPLIC TOPICAL ×3 (06:09→21:21)
[2019-03-02 06:45] LABS: Absolute Lymphocyte Count 1.33 X10^3/uL (0.83-4.51); Absolute Neutrophil Count 9.4 X10^3/uL (2.0-7.7); Basophil# 0.03 X10^3/uL; Basophil% 0.2 % (0-1); Eosinophil# 0.06 X10^3/uL; Eosinophils% 0.5 % (0-5); Hematocrit 25.7 % (40-54); Lymphocyte # 1.33 X10^3/ul (4.0); Mean Corp Hgb Conc 31.1 g/dL (32-36); Mean Corpuscular Hgb 27.7 pg (27.0-32.0); Mean Corpuscular Volume 88.9 fL (80-94); Mean Platelet Vol. 9.6 fl (6.2-12.0); Monocyte# 0.97 X10^3/uL; NRBC Flagged by Analyzer 0 % (0-5); Neutrophil # 9.41 X10^3/uL (2.7-7.7); Neutrophil % 77.6 % (47-70); Platelet Count 566 K/mm3 (150-450); RBC Distribution Width CV 19.1 % (11.6-14.6); RBC Distribution Width SD 62.7 fl (35.1-43.9); Red Blood Count 2.89 M/mm3 (4.6-6.2); White Blood Count 12.1 K/mm3 (4.4-11.0)
[2019-03-02 06:57] LABS: Anion Gap 9 (5-15); BUN 65 mg/dL (7-18); BUN/Creat Ratio 36.9 RATIO (10-20); Calcium,Total 8.5 mg/dL (8.5-10.1); Chloride 119 mmol/L (98-107); Creatinine, Serum 1.76 mg/dL (0.70-1.30); EST Glomerular Filtration Rate 42 mL/min (>60); Est Glom Filt Rate - Afr Amer 51 mL/min (>60); Estimated Creatinine Clearance 29.24 ml/min; Glucose 87 mg/dL (74-106); Potassium 3.4 mmol/L (3.5-5.1); Sodium Level 143 mmol/L (136-145)
[2019-03-02] MEDS: Budesonide Respules 0.5 MG/2 ML AMPUL.NEB. INHALATION ×2 (07:04→18:45)
[2019-03-02] MEDS: Albuterol 2.5 MG/3 ML VIAL.NEB. INHALATION ×3 (07:05→18:45)
[2019-03-02] MEDS: Folic Acid 1 MG Tablet PO (07:33)
[2019-03-02] MEDS: Multivitamins,Ther W-Minerals Tablet 1 TABLET PO (07:34)
[2019-03-02] MEDS: Gabapentin 100 MG Capsule PO ×3 (07:34→16:14)
[2019-03-02] MEDS: Thiamine Hydrochloride 100 MG Tablet PO (07:35)
[2019-03-02] MEDS: Ascorbic Acid 500 MG Tablet PO ×2 (07:35→16:14)
[2019-03-02] MEDS: Collagenase 30gm Tube 1 APPLIC TOPICAL (08:37)
[2019-03-02 08:59] LABS: Iron 23 ug/dL (65-175); Iron Binding Capacity,Total 161 ug/dL (250-450); PERCENT IRON SATURATION 14.3 % (15.0-55.0)
--- NOTE | 2019-03-02 09:43 | CASEMGMT ---
Social Work Note Physician is transferring pt to [facility]. SW placed a call to Debi at [facility] and left her a message informing her that pt is being transferred out. CALISTA received message from MEAGAN Hand at [facility] requesting update on discharge plan. CALISTA placed a call to MEAGAN Hand at [facility] [phone] and left her a message informing her that pt will be transferred out today. Maranda Wiley PERCUSSION INSTRUCTOR, MATERIALS INSPECTOR
--- NOTE | 2019-03-02 09:49 | NURSING ---
This RN spoke with pt regarding transfer to [facility] and reasoning given by Dr. Pugh- primary doctor for pt- post operative ileus from surgery completed at [facility] 02/21/19. Pt alert and oriented at this time per Mekhi, primary RN. Patient able to answer this RN's questions. Asked pt if he would like family informed- Jl, ex , notified and Erickajuan states she will let his daughter know.
[2019-03-02 10:14] LABS: Ferritin 242 ng/mL (26-388); Prealbumin 10.4 mg/dL (20.0-40.0)
[2019-03-02 10:35] LABS: M R Staph aureus DNA By PCR Negative (Negative); Probe Check PASS; Specimen Processing Control PASS; Staph aureus DNA By PCR NEGATIVE (Negative)
[2019-03-02] MEDS: FLUoxetine 20 MG Capsule PO (10:35)
[2019-03-02] MEDS: Pantoprazole Sodium 20 MG Tablet PO (10:36)
[2019-03-02] MEDS: Clopidogrel Bisulfate 75 MG Tablet PO (10:36)
[2019-03-02] MEDS: NIFEdipine 90 MG Tablet PO (10:36)
[2019-03-02] MEDS: Ceftriaxone 1 GM/50 ML BAG IV (10:41)
[2019-03-02] MEDS: 0.9% Saline Lock 10 ML Syringe IV ×2 (10:42→18:51)
[2019-03-02] MEDS: Acetaminophen 325 MG Tablet 650 MG PO (11:29)
[2019-03-02 12:14] LABS: Hematocrit 26.8 % (40-54); Hemoglobin 8.3 g/dL (13.0-16.5)
--- NOTE | 2019-03-02 13:13 | NURSING ---
In to reassess the abdominal incision. minimal drainage noted in the small ostomy appliance at this time. pt awaiting transfer to [facility]. denies further needs at this time.
--- NOTE | 2019-03-02 13:31 | PCM.PN.HOSP ---
Patient Problems: Active and Suspected Problems (Last Reviewed 03/01/19 @ 05:34 by Miguel Angel Bryan MD) Sepsis due to urinary tract infection (Acute) Dehydration (Acute) Renal insufficiency (Acute) CARLOS EDUARDO (acute kidney injury) (Acute) Subjective: Patient is severely malnourished. Patient has suboptimal energy intake. CT abdomen shows diffuse distention of small bowel with air-fluid level consistent with small bowel ileus. Pelvic/lower abdominal collection nonspecific may represent postoperative seroma. Patient also looks mild short of breath and very weak. Discussed with surgeon and advised transfer to [facility] for postoperative ileus Vitals/I&O's: Vital Signs Temp Pulse Resp BP Pulse Ox 97.9 F 85 18 114/60 99 03/02/19 13:22 03/02/19 13:22 03/02/19 13:22 03/02/19 13:22 03/02/19 11:07 Oxygen Flow Rate (L/min) 1 Oxygen Delivery Method Nasal Cannula Weight: 104 lb 11.513 oz Body Mass Index (BMI) 14.3 Finger Stick Blood Glucose 88 Intake and Output for Last 24 Hours 02/28/19 03/01/19 03/02/19 23:59 23:59 23:59 Intake Total 2960.00 / 2960.00 796.25 / 796.25 Output Total 1475 / 1475 1275 / 1275 Balance 1485.00 / 1485.00 -478.75 / -478.75 General: Alert, Oriented x3, Cooperative, Lethargic, - - Severe protein calorie malnutrition with diffuse muscle atrophy and loss of subcutaneous fat HEENT: Atraumatic, PERRLA, EOMI, Normocephalic Oral: Dry Mucosa Neck: Supple, No JVD, Negative Carotid Bruits Lungs: Clear to auscultation, Normal air movement, No rhonchi, No wheeze, No rales, Short of Breath Cardiovascular: Regular rate, Regular Rhythm, Normal S1, Normal S2, No murmurs Abdomen: Bowel Sounds Present, Soft, Non Tender, Hypoactive Bowel Sounds, Distended - Diffuse distention of abdomen, - - Small lump over lower end of surgical incision, forming consistency possible fascial tissue scar Extremities: No edema, Capillary Refill Less than 3 Seconds Skin: No rashes, No breakdown Musculoskeletal: No Tenderness to Palpation of Joints or Extremities, Arthritic Changes, Muscle Wasting Neurological: Cranial nerves II-XII grossly intact, Deep Tendon Reflexes 2+/4 and Symmetrical, Neuro grossly intact Psych/Mental Status: Normal Affect, Appropriate Microbiology Past 72 Hours 03/01/19 01:20 Urine Catheter - Catheter Urine Culture - Preliminary Culture exhibits no growth. 03/01/19 01:20 Stool Enteric Bacteriology - Final 03/01/19 01:20 Stool C. difficile DNA Amplification - Final Laboratory Results 03/02/19 06:34: WBC 12.1 H, RBC 2.89 L, Hgb 8.0 L, Hct 25.7 L, MCV 88.9, MCH 27.7, MCHC 31.1 L, RDW Std Deviation 62.7 H, RDW Coeff of [place] 19.1 H, Plt Count 566 H, MPV 9.6, Immature Gran % (Auto) 2.700 H, Neut % (Auto) 77.6 H, Lymph % (Auto) 11.0 L, [place] % (Auto) 8.0, Eos % (Auto) 0.5, Baso % (Auto) 0.2, Absolute Neuts (auto) 9.4 H, Absolute Lymphs (auto) 1.33, Nucleated RBC % 0 03/02/19 06:34: Sodium 143, Potassium 3.4 L, Chloride 119 H, Carbon Dioxide 15.0 L, Anion Gap 9, BUN 65 H, Creatinine 1.76 H, Estim Creat Clear Calc 29.24, Est GFR (MDRD) Af Amer 51 L, Est GFR (MDRD) Non-Af 42 L, BUN/Creatinine Ratio 36.9 H, Glucose 87, Calcium 8.5 03/02/19 06:34: Iron 23 L, TIBC 161 L, Iron Saturation 14.3 L 03/02/19 06:34: Ferritin 242, Prealbumin 10.4 L 03/02/19 08:05: S.aureus Protein A PCR NEGATIVE, MRSA (PCR) Negative 03/02/19 12:02: Hgb 8.3 L, Hct 26.8 L Current Medications Acetaminophen (Tylenol) 650 mg PO Q6H PRN PRN PRN Reason: Pain Score 1-3/Temp > 100.7 F Last Admin: 03/02/19 11:29 Dose: 650 mg Documented by: Albuterol Sulfate (Ventolin Aerosols) 2.5 mg INHALATION Q2H PRN PRN PRN Reason: SOB/Wheezing Albuterol Sulfate (Ventolin Aerosols) 2.5 mg INHALATION Q2H PRN PRN PRN Reason: Shortness of Breath/Wheezing Albuterol Sulfate (Ventolin Aerosols) 2.5 mg INHALATION Q6HWA.RT [facility] Last Admin: 03/02/19 07:05 Dose: 2.5 mg Documented by: Atorvastatin Calcium (Lipitor) 40 mg PO QHS [facility] Last Admin: 03/01/19 20:51 Dose: 40 mg Documented by: Budesonide (Pulmicort Aerosol) 0.5 mg INHALATION Q12H.RT [facility] Last Admin: 03/02/19 07:04 Dose: 0.5 mg Documented by: Calamine/Phenol (Calmoseptine Ointment) 1 applic TOPICAL TID [facility]; Protocol Last Admin: 03/02/19 08:37 Dose: 1 applicatio Documented by: Clopidogrel Bisulfate (Plavix) 75 mg PO DAILY [facility] Last Admin: 03/02/19 10:36 Dose: 75 mg Documented by: Collagenase (Santyl) 1 applic TOPICAL DAILY [facility]; Protocol Last Admin: 03/02/19 08:37 Dose: 1 applic Documented by: Dextrose (D50w Syringe) 0 gm IV X1 PRN; Protocol PRN Reason: Hypoglycemia Fluoxetine HCl (Prozac) 20 mg PO DAILY [facility] Last Admin: 03/02/19 10:35 Dose: 20 mg Documented by: Folic Acid (Folic Acid) 1 mg PO DAILY@0800 [facility] Last Admin: 03/02/19 07:33 Dose: 1 mg Documented by: Gabapentin (Neurontin) 100 mg PO TIDCM [facility] Last Admin: 03/02/19 11:29 Dose: 100 mg Documented by: Glucagon () 1 mg IM .X1 PRN PRN Reason: Hypoglycemia Sodium Chloride () 250 mls @ 15 mls/hr IV .[id number] PRN PRN Reason: Saline Flush Metronidazole (Flagyl) 500 mg in 100 mls @ 100 mls/hr IV Q8H [facility] Last Admin: 03/02/19 12:22 Dose: 100 mls/hr Documented by: Ceftriaxone Sodium (Rocephin) 1 gm in 50 mls @ 100 mls/hr IV Q12 [facility] Last Infusion: 03/02/19 11:24 Dose: Infused Documented by: Isosorbide Mononitrate (Imdur) 30 mg PO DAILY [facility] Last Admin: 03/02/19 10:40 Dose: Not Given Documented by: Metoprolol Tartrate (Lopressor (Beta Reilly)) 25 mg PO BID [facility] Last Admin: 03/02/19 10:40 Dose: Not Given Documented by: Multivitamins/Minerals (Multivitamin With Minerals) 1 tablet PO DAILY@0800 [facility] Last Admin: 03/02/19 07:34 Dose: 1 tablet Documented by: Nifedipine (Procardia Xl) 90 mg PO DAILY [facility] Last Admin: 03/02/19 10:36 Dose: 90 mg Documented by: Nutritional Formula (Lactose Free) (Ensure Enlive) 120 ml PO 4X/DAY [facility] Last Admin: 03/02/19 10:37 Dose: 120 ml Documented by: Nystatin (Mycostatin Powder) 1 applic TOPICAL TID [facility]; Protocol Last Admin: 03/02/19 06:09 Dose: 1 applicatio Documented by: Ondansetron HCl (Zofran) 4 mg IV Q8H PRN PRN PRN Reason: NAUSEA/VOMITING Pantoprazole Sodium (Protonix) 20 mg PO DAILY [facility] Last Admin: 03/02/19 10:36 Dose: 20 mg Documented by: Sodium Chloride () 10 - 40 ml IV UD PRN PRN Reason: SALINE FLUSH Last Admin: 03/02/19 10:42 Dose: 10 ml Documented by: Tamsulosin HCl (Flomax) 0.4 mg PO QHS [facility] Last Admin: 03/01/19 20:51 Dose: 0.4 mg Documented by: [facility] Last Admin: 03/02/19 07:35 Dose: 100 mg Documented by: STROKE Vital Signs/Narrative: Vital Signs Temp Pulse Resp BP Pulse Ox 03/02/19 13:22 97.9 F 85 18 114/60 03/02/19 11:07 98.0 F 88 20 H 99/62 99 03/02/19 10:40 87 100/62 Medical Necessity - Tobacco Use Smoking Status: Current every day smoker Assessment/Plan All Active Problems (Last Reviewed 03/01/19 @ 05:34 by Miguel Angel Bryan MD) Sepsis due to urinary tract infection (Acute) Dehydration (Acute) Renal insufficiency (Acute) CARLOS EDUARDO (acute kidney injury) (Acute) Urinary tract infection (Acute) 63-year-old gentleman was admitted for for generalized weakness and altered mental status. Patient has history of chronic alcohol use, sleep apnea, COPD on home oxygen and TIA and was admitted from residential. Patient had laparotomy for small bowel obstruction secondary to volvulus and a small incisional wound dehiscence with serous fluid discharge. Patient also has firm swelling on the lower part of incision. 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 Severe sepsis (tachycardia, leukocytosis 18,000, tachypnea and bandemia) probably from postoperative small bowel ileus. Lactic acid unremarkable. Creatinine elevated. UA shows WBC more than 100 cells, LE 500, nitrite negative. Patient on ceftriaxone and Flagyl. C. difficile is ruled out. Enteric bacteriology panel negative. Blood cultures x2 are pending. Urine culture no growth. On 03/02/2019: Heart rate is controlled. No fever. Continue antibiotics. CT abdomen shows diffuse distention of the small bowel with air-fluid levels, likely representing ileus. It also shows small pelvic/lower abdominal collection possible postoperative seroma. Discussed with Dr. Mederos and advised transfer to tertiary care hospital, [facility] in view of postoperative small bowel ileus with multiple air-fluid level, severe protein caloric malnutrition with bedsore and need of TPN. Patient might need long-term acute care after discharge from hospital Clinically transfer line was called. Discussed with surgeon Dr. Mercado he is separate the patient. Patient will go to [facility] when bed is available. In the meantime, PICC line ordered. Need to initiate TPN after PICC line. 2. CARLOS EDUARDO multiple etiologies predominantly prerenal secondary to dehydration Admitting BUN/creatinine 92/3.11. On 02/11/2019 was 54/2.48. Previous creatinine otherwise has been less than 1. Most probably multifactorial from prerenal secondary dehydration and intrinsic renal for septic effect of sepsis. IV hydration. Avoid nephrotoxins. Medications as per estimated creatinine clearance. 03/02/2019. Labs reviewed. Improvement in kidney function. CT shows distention of urinary bladder with mild bilateral hydroureteronephrosis. March catheter placed. As per patient with small traumatic hematuria. Urine in the low back is dark-colored. Urine output 1300 mL since midnight. 3. Recent small bowel obstruction secondary to volvulus status post laparotomy: There is also firm swelling over the lower end of incision wound. This seems like a scar fascial tissue in consistency. Discussed with Dr. Mederos. As mentioned above Hypertension: Blood pressure is fairly controlled. Home Imdur; metoprolol and nifedipine continued. Parameters placed. BPH Tamsulosin continued COPD Stable On home ICS and inhaled beta agonist; continued. PRN albuterol continued. Bladder mass follow-up with urology at [facility]. CAD Status post CABG/history of TIA; peripheral artery disease/Raynaud's syndrome Aspirin and Plavix continued Stage II left buttock decubitus ulcer and unstageable right buttock unstageable decubitus ulcer and left lateral malleolus unstageable decubitus ulcer: Patient was seen and evaluated by wound nurseDawna. Calmoseptine to coccygeal and sacral area. Severe Protein calorie malnutrition Patient BMI of 14.4. Generalized debilitation with diffuse muscle atrophy in the extremities, cheeks and temples suggestive of severe protein calorie malnutrition. Ensure Enlive. PICC line ordered for starting TPN. Patient has suboptimal energy intake secondary to small bowel ileus. Nutrition consult Tobacco Abuse Counselled. DVT prophylaxis Subcutaneous Lovenox Clinical Impression(s) from Imaging Studies Chest X-Ray 03/01/19 00:51 IMPRESSION: Minimal atelectasis left base. No pulmonary edema, congestive heart failure or confluent pneumonia. Stable hyperinflation and postsurgical changes. Abdomen/Pelvis CT 03/01/19 16:44 IMPRESSION: Mildly prominent bilateral hydroureteronephrosis. Moderate distention of the urinary bladder. Diffuse distention of the small bowel with air-fluid levels, likely representing ileus. Pelvic/lower abdominal collections, nonspecific which likely represent postoperative seromas given recent surgery. Mild fluid along the midline incision. Code Visit Inpatient E&M: 78407 Subs Hosp L3
--- NOTE | 2019-03-02 18:49 | DS.PCM_ITS ---
Discharge Date and Diagnosis Date of Admission: 03/01/19 Date of Discharge: 03/02/19 - Primary Discharge Diagnosis Active and Suspected Problems (Last Reviewed 03/01/19 @ 05:34 by Miguel Angel Bryan MD) Sepsis due to urinary tract infection (Acute) Dehydration (Acute) Renal insufficiency (Acute) CARLOS EDUARDO (acute kidney injury) (Acute) - Secondary Discharge Diagnosis Chronic Problems (Last Reviewed 03/01/19 @ 05:34 by Miguel Angel Bryan MD) Raynaud's syndrome (Chronic) History of TIA (transient ischemic attack) (Chronic) Obstructive sleep apnea (Chronic) PAD (peripheral artery disease) (Chronic) S/P CABG x 4 (Chronic ~2008) HOFFMAN to LAD, SVG to 1st Diagonal, SVG to 1st OM, SVG to Right PDA, Done @ [facility]. 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 Patient has history of chronic alcohol use, sleep apnea, COPD on home oxygen and TIA and was [facility] from jail. Patient had laparotomy for small bowel obstruction secondary to volvulus and a small incisional wound dehiscence with serous fluid discharge. Patient also has firm swelling on the lower part of incision. 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 Severe sepsis (tachycardia, leukocytosis 18,000, tachypnea and bandemia) probably from postoperative small bowel ileus. Lactic acid unremarkable. Creatinine elevated. UA shows WBC more than 100 cells, LE 500, nitrite negative. Patient on ceftriaxone and Flagyl. C. difficile is ruled out. Enteric bacteriology panel negative. Blood cultures x2 are pending. Urine culture no growth. On 03/02/2019: Heart rate is controlled. No fever. Continue antibiotics. CT abdomen shows diffuse distention of the small bowel with air-fluid levels, likely representing ileus. It also shows small pelvic/lower abdominal collection possible postoperative seroma. Discussed with Dr. Mederos and advised transfer to tertiary care hospital, [facility] in view of postoperative small bowel ileus with multiple air- fluid level, severe protein caloric malnutrition with bedsore and need of TPN. Patient might need long-term acute care after discharge from hospital Clinically transfer line was called. Discussed with surgeon Dr. Mercado he is separate the patient. Patient will go to [facility] when bed is available. In the meantime, PICC line was inserted. Discussed with the pharmacist and TPN was started. 2. CARLOS EDUARDO multiple etiologies predominantly prerenal secondary to dehydration Admitting BUN/creatinine 92/3.11. On 02/11/2019 was 54/2.48. Previous creatinine otherwise has been less than 1. Most probably multifactorial from prerenal secondary dehydration and intrinsic renal for septic effect of sepsis. IV hydration. Avoid nephrotoxins. Medications as per estimated creatinine clearance. 03/02/2019. Labs reviewed. Improvement in kidney function. CT shows distention of urinary bladder with mild bilateral hydroureteronephrosis. March catheter placed. As per patient with small traumatic hematuria. Urine in the low back is dark-colored. Urine output 1300 mL since midnight. 3. Recent small bowel obstruction secondary to volvulus status post laparotomy: There is also firm swelling over the lower end of incision wound. This seems like a scar fascial tissue in consistency. Discussed with Dr. Mederos. As mentioned above Hypertension: Blood pressure is fairly controlled. Home Imdur; metoprolol and nifedipine continued. Parameters placed. BPH Tamsulosin continued COPD Stable On home ICS and inhaled beta agonist; continued. PRN albuterol continued. Bladder mass follow-up with urology at [facility]. CAD Status post CABG/history of TIA; peripheral artery disease/Raynaud's syndrome Aspirin and Plavix continued Stage II left buttock decubitus ulcer and unstageable right buttock unstageable decubitus ulcer and left lateral malleolus unstageable decubitus ulcer: Patient was seen and evaluated by wound nurseDawna. Calmoseptine to coccygeal and sacral area. Severe Protein calorie malnutrition Patient BMI of 14.4. Generalized debilitation with diffuse muscle atrophy and loss of subcutaneous fat in the extremities, cheeks and temples suggestive of severe protein calorie malnutrition. Ensure Enlive. Patient has suboptimal energy intake secondary to small bowel ileus. TPN was restarted. Nutrition consult Tobacco Abuse Counselled. DVT prophylaxis Subcutaneous Lovenox Discharge medication reconciliation done. Discharge follow-up instructions completed. Discharge process discussed with the patient and all questions were answered to patient's satisfaction. Admitting diagnosis and hospital course discussed with Dr. Mercado who operated on the patient through [facility] transfer line. Patient was accepted in later transferred to [facility]. Patient might need long-term acute care after ileus is resolved. Total time spent, exact 35 minutes on discharge meds reconciliation, examination, review of imaging and blood test and discussion with the patient on follow-up instructions. Clinical Impression(s) from Imaging Studies Chest X-Ray 03/01/19 00:51 IMPRESSION: Minimal atelectasis left base. No pulmonary edema, congestive heart failure or confluent pneumonia. Stable hyperinflation and postsurgical changes. Abdomen/Pelvis CT 03/01/19 16:44 IMPRESSION: Mildly prominent bilateral hydroureteronephrosis. Moderate distention of the urinary bladder. Diffuse distention of the small bowel with air-fluid levels, likely representing ileus. Pelvic/lower abdominal collections, nonspecific which likely represent postoperative seromas given recent surgery. Mild fluid along the midline incision. Subjective: Patient was seen and examined. Transfer process was initiated and patient accepted by Dr. Mercado, surgeon in [facility]. Patient is waiting for the bed and then went to [facility] about 10 PM on 03/02/2019 Objective: Please see exam finding on the day of discharge - Physical Exam Vitals/I&O's: Vital Signs Temp Pulse Resp BP Pulse Ox 98.0 F 87 20 H 100/62 99 03/02/19 08:10 03/02/19 08:10 03/02/19 08:10 03/02/19 08:10 03/02/19 08:10 Oxygen Flow Rate (L/min) 1 Oxygen Delivery Method Nasal Cannula Weight: 104 lb 11.513 oz Body Mass Index (BMI) 14.3 Finger Stick Blood Glucose 88 Intake and Output for Last 24 Hours 02/28/19 03/01/19 03/02/19 23:59 23:59 23:59 Intake Total 2960.00 / 2960.00 636.25 / 636.25 Output Total 1475 / 1475 800 / 800 Balance 1485.00 / 1485.00 -163.75 / -163.75 Microbiology Past 72 Hours 03/01/19 01:20 Stool Enteric Bacteriology - Final 03/01/19 01:20 Stool C. difficile DNA Amplification - Final Laboratory Results 03/02/19 06:34: WBC 12.1 H, RBC 2.89 L, Hgb 8.0 L, Hct 25.7 L, MCV 88.9, MCH 27.7, MCHC 31.1 L, RDW Std Deviation 62.7 H, RDW Coeff of [place] 19.1 H, Plt Count 566 H, MPV 9.6, Immature Gran % (Auto) 2.700 H, Neut % (Auto) 77.6 H, Lymph % (Auto) 11.0 L, Clinch % (Auto) 8.0, Eos % (Auto) 0.5, Baso % (Auto) 0.2, Absolute Neuts (auto) 9.4 H, Absolute Lymphs (auto) 1.33, Nucleated RBC % 0 03/02/19 06:34: Sodium 143, Potassium 3.4 L, Chloride 119 H, Carbon Dioxide 15.0 L, Anion Gap 9, BUN 65 H, Creatinine 1.76 H, Estim Creat Clear Calc 29.24, Est GFR (MDRD) Af Amer 51 L, Est GFR (MDRD) Non-Af 42 L, BUN/Creatinine Ratio 36.9 H , Glucose 87, Calcium 8.5 03/02/19 06:34: Iron 23 L, TIBC 161 L, Iron Saturation 14.3 L 03/02/19 06:34: Ferritin Pending, Prealbumin Pending Current Medications Acetaminophen (Tylenol) 650 mg PO Q6H PRN PRN PRN Reason: Pain Score 1-3/Temp > 100.7 F Albuterol Sulfate (Ventolin Aerosols) 2.5 mg INHALATION Q2H PRN PRN PRN Reason: SOB/Wheezing Albuterol Sulfate (Ventolin Aerosols) 2.5 mg INHALATION Q2H PRN PRN PRN Reason: Shortness of Breath/Wheezing Albuterol Sulfate (Ventolin Aerosols) 2.5 mg INHALATION Q6HWA.RT EMILIE Last Admin: 03/02/19 07:05 Dose: 2.5 mg Documented by: Ascorbic Acid (Vitamin C) 500 mg PO DAILY@0800 [facility] Last Admin: 03/02/19 07:35 Dose: 500 mg Documented by: Atorvastatin Calcium (Lipitor) 40 mg PO QHS [facility] Last Admin: 03/01/19 20:51 Dose: 40 mg Documented by: Budesonide (Pulmicort Aerosol) 0.5 mg INHALATION Q12H.RT [facility] Last Admin: 03/02/19 07:04 Dose: 0.5 mg Documented by: Calamine/Phenol (Calmoseptine Ointment) 1 applic TOPICAL TID [facility]; Protocol Last Admin: 03/02/19 08:37 Dose: 1 applicatio Documented by: Clopidogrel Bisulfate (Plavix) 75 mg PO DAILY [facility] Last Admin: 03/01/19 10:32 Dose: 75 mg Documented by: Collagenase (Santyl) 1 applic TOPICAL DAILY [facility]; Protocol Last Admin: 03/02/19 08:37 Dose: 1 applic Documented by: Dextrose (D50w Syringe) 0 gm IV X1 PRN; Protocol PRN Reason: Hypoglycemia Fluoxetine HCl (Prozac) 20 mg PO DAILY [facility] Last Admin: 03/01/19 10:32 Dose: 20 mg Documented by: Folic Acid (Folic Acid) 1 mg PO DAILY@0800 [facility] Last Admin: 03/02/19 07:33 Dose: 1 mg Documented by: Gabapentin (Neurontin) 100 mg PO TIDCM [facility] Last Admin: 03/02/19 07:34 Dose: 100 mg Documented by: Glucagon () 1 mg IM .X1 PRN PRN Reason: Hypoglycemia Sodium Chloride () 250 mls @ 15 mls/hr IV .[id number] PRN PRN Reason: Saline Flush Metronidazole (Flagyl) 500 mg in 100 mls @ 100 mls/hr IV Q8H [facility] Last Infusion: 03/02/19 07:08 Dose: Infused Documented by: Ceftriaxone Sodium (Rocephin) 1 gm in 50 mls @ 100 mls/hr IV Q12 [facility] Last Infusion: 03/01/19 22:14 Dose: Infused Documented by: Iron Sucrose 200 mg/ Sodium (Chloride) 110 mls @ 220 mls/hr IV X1 ONE Stop: 03/02/19 09:42 Isosorbide Mononitrate (Imdur) 30 mg PO DAILY [facility] Last Admin: 03/01/19 10:32 Dose: 30 mg Documented by: Metoprolol Tartrate (Lopressor (Beta Reilly)) 25 mg PO BID [facility] Last Admin: 03/01/19 20:51 Dose: 25 mg Documented by: Multivitamins/Minerals (Multivitamin With Minerals) 1 tablet PO DAILY@0800 [facility] Last Admin: 03/02/19 07:34 Dose: 1 tablet Documented by: Nifedipine (Procardia Xl) 90 mg PO DAILY [facility] Last Admin: 03/01/19 10:32 Dose: 90 mg Documented by: Nutritional Formula (Lactose Free) (Ensure Enlive) 120 ml PO 4X/DAY [facility] Last Admin: 03/01/19 20:52 Dose: 120 ml Documented by: Nystatin (Mycostatin Powder) 1 applic TOPICAL TID [facility]; Protocol Last Admin: 03/02/19 06:09 Dose: 1 applicatio Documented by: Ondansetron HCl (Zofran) 4 mg IV Q8H PRN PRN PRN Reason: NAUSEA/VOMITING Pantoprazole Sodium (Protonix) 20 mg PO DAILY [facility] Last Admin: 03/01/19 10:32 Dose: 20 mg Documented by: Sodium Chloride () 10 - 40 ml IV UD PRN PRN Reason: SALINE FLUSH Last Admin: 03/01/19 17:11 Dose: 20 ml Documented by: Tamsulosin HCl (Flomax) 0.4 mg PO QHS [facility] Last Admin: 03/01/19 20:51 Dose: 0.4 mg Documented by: [facility]) [facility] Last Admin: 03/02/19 07:35 Dose: 100 mg Documented by: Home Medications: Medications to take at Discharge Albuterol Inhaler [Ventolin Hfa] 2 puff INHALATION Q4H PRN PRN 07/12/17 Fluticasone/Vilanterol [Breo Ellipta 200-25 Mcg INH] 1 ea IH DAILY 07/12/17 Gabapentin [Neurontin] 300 mg PO TIDCM 07/12/17 NIFEdipine [Procardia XL] 90 mg PO DAILY 07/12/17 Nitroglycerin (INPATIENT USE) [Nitrostat] 0.4 mg SUBLINGUAL Q5M PRN 07/12/17 Omeprazole [Prilosec] 20 mg PO DAILY 07/12/17 Isosorbide Mononitrate [Isosorbide Mononitrate ER] 30 mg PO DAILY 11/27/18 Aspirin [Aspir-Low] 81 mg PO DAILY 09/08/18 Atorvastatin Calcium [Lipitor] 40 mg PO QHS 09/08/18 Clopidogrel Bisulfate [Plavix] 75 mg PO DAILY 09/08/18 Fluoxetine HCl 20 mg PO DAILY 09/08/18 Metoprolol Tartrate [Lopressor (beta reilly)] 25 mg PO BID 09/08/18 Folic Acid 1 mg PO DAILY@0800 #30 tab 09/11/18 Multivitamin with Minerals [Multivitamins with Minerals] 1 ea PO DAILY #30 tab 09/11/18 Thiamine Hydrochloride [Vitamin B1] 100 mg PO DAILYCM #30 tab 09/11/18 Ascorbic Acid [Vitamin C] 500 mg PO DAILY@0800 03/01/19 Collagenase [Santyl] 1 applic TOPICAL DAILY 03/01/19 Multivit,Stress Formula/Zinc [Stress Formula with Zinc Tab] 1 ea PO DAILY 03/01/19 Nicotine [Nicoderm Cq (PBKC)] 14 mg TRANSDERM. QHS 03/01/19 Tamsulosin HCl 0.4 mg PO QHS 03/01/19 Primary Care Physician: Kenn Parra MD [Primary Care Provider] - Medical Necessity - Tobacco Use Smoking Status: Current every day smoker Meaningful Use Info Meaningful Use Diagnoses (Choose all that apply): None applicable Code Visit Inpatient E&M: 27233 Disch Hosp
[2019-03-02 19:02] LABS: Hematocrit 25.6 % (40-54); Hemoglobin 8.2 g/dL (13.0-16.5)
[2019-03-02] MEDS: Tamsulosin HCl 0.4 MG Capsule PO (21:21)
[2019-03-02] MEDS: Atorvastatin Calcium 40 MG Tablet PO (21:22)
[2019-03-02] MEDS: Metoprolol Tartrate 25 MG Tablet PO (21:22)
== END 2019-03-02 22:15 | disposition short-term general hospital (02) | DRG 720 ==
LOC: ED 02:34 → MS3 04:13
PROVIDERS: Admitting Provider Hospitalist; Emergency Provider Emergency Medicine; Family Provider Family Medicine; PCP Family Medicine; Visit Provider Internal Medicine
DX: A41.9 Sepsis, unspecified organism (principal); J44.9 Chronic obstructive pulmonary disease, unspecified; R65.20 Severe sepsis without septic shock; G47.33 Obstructive sleep apnea (adult) (pediatric); E78.5 Hyperlipidemia, unspecified; N17.9 Acute kidney failure, unspecified; N40.0 Benign prostatic hyperplasia without lower urinary tract symptoms; L89.322 Pressure ulcer of left buttock, stage 2; L89.312 Pressure ulcer of right buttock, stage 2; I25.10 Atherosclerotic heart disease of native coronary artery without angina pectoris; I25.2 Old myocardial infarction; Z86.73 Personal history of transient ischemic attack (TIA), and cerebral infarction without residual deficits; Z95.1 Presence of aortocoronary bypass graft; E43 Unspecified severe protein-calorie malnutrition; F17.200 Nicotine dependence, unspecified, uncomplicated; Z68.1 Body mass index [BMI] 19.9 or less, adult; Z99.81 Dependence on supplemental oxygen; T81.32XA Disruption of internal operation (surgical) wound, not elsewhere classified, initial encounter; K56.7 Ileus, unspecified; E86.0 Dehydration; K56.2 Volvulus; I10 Essential (primary) hypertension; Z79.02 Long term (current) use of antithrombotics/antiplatelets; Z79.82 Long term (current) use of aspirin; Z80.1 Family history of malignant neoplasm of trachea, bronchus and lung; Z80.0 Family history of malignant neoplasm of digestive organs; Z83.3 Family history of diabetes mellitus; Z90.49 Acquired absence of other specified parts of digestive tract; Z95.5 Presence of coronary angioplasty implant and graft; I73.00 Raynaud's syndrome without gangrene; N32.9 Bladder disorder, unspecified
CPT/HCPCS: 36415; 36569; 71045; 74176; 80048; 81001; 82274; 82728; 83540; 83550; 83605; 84134; 85014; 85018; 85025; 87040; 87070; 87075; 87077; 87086; 87186; 87205; 87493; 87506; 87640; 94640; 97162; 97166; 97802; 99285; J1756; J7030; A4216

== ENCOUNTER 2019-07-03 08:51 | Inpatient (IN) | payer MEDICAID, SELFPAY ==
[2019-05-31 14:31] VITALS: BMI 18.1
[2019-07-03] VITALS (53 sets, daily range): BP systolic 71–122; BP diastolic 52–81; PULSE 122–153; RESP 12–38; TEMP 36.7–37.4; O2SAT 90–100; BMI 17.2; BMI 18.8; BMI 17.6; BMI 17.7
--- NOTE | 2019-07-03 09:06 | EKG12_ITS ---
Test Reason : SOB Blood Pressure : / mmHG Vent. Rate : 130 BPM Atrial Rate : 130 BPM P-R Int : 146 ms QRS Dur : 078 ms QT Int : 300 ms P-R-T Axes : 063 -07 061 degrees QTc Int : 441 ms Sinus tachycardia Possible Left atrial enlargement Septal infarct , age undetermined Abnormal ECG Confirmed by JORGE LUIS HOLT, BHAVESH ([id number]), assignment desk editor SHERRON ENGEL ([id number]) on 07/06/2019 11:38:38 AM Referred By: Confirmed By:EVAN KANG MD
--- NOTE | 2019-07-03 09:08 | ED.DCSUM_ITS ---
History of Present Illness Chief Complaint: Shortness of Breath Informant: Patient, Family Narrative: Patient presents the emergency room with complaint of shortness of breath. Patient has been chronically ill the past year. Patient reportedly developed cough yesterday and today has had vomiting and increased shortness of breath. Family states that he is confused and weak unable to hold a drink.. They note that he is incontinent of urine which is not new. He chronically has diarrhea. He has an extensive medical history including coronary artery disease (status post CABG patient of Dr. Liu), small bowel obstructions, malnutrition. Peripheral artery disease, COPD. Past Medical History - Allergies and Home Meds Allergies/Adverse Reactions: Allergies No Known Allergies Allergy (Verified 03/01/19 00:06) Surgical History: appendectomy, coronary bypass surgery, tonsillectomy, - - appendix out, cabg , tonsils out, eye surgery, heart stent before surgery., Bowel obstruction Smoking Status: Current every day smoker - Family History Maternal Family History: Family History (Last Reviewed 05/31/19 @ 14:31 by Eboni Jacinto) Father Cancer Mother Murder Brother Colon cancer Brother Diabetes Brother Diabetes Brother Diabetes Sister Diabetes Family History: Reports: - - Patient reports that her mother was murdered Paternal Family History: Family History (Last Reviewed 05/31/19 @ 14:31 by Eboni Jacinto) Father Cancer Mother Murder Brother Colon cancer Brother Diabetes Brother Diabetes Brother Diabetes Sister Diabetes Family History: Reports: Cancer, - - lung cancer Sibling Family History: Family History (Last Reviewed 05/31/19 @ 14:31 by Eboni Jacinto) Father Cancer Mother Murder Brother Colon cancer Brother Diabetes Brother Diabetes Brother Diabetes Sister Diabetes Family History: Reports: Diabetes Review of Systems General: Reports: Chills, Fever, Malaise. Denies: Sweats Eyes: Denies: Visual changes - bilaterally, Diplopia ENT: Denies: Rhinorrhea, Sore throat Cardiovascular: Denies: Chest pain, Palpitations Respiratory: Reports: Dyspnea, Cough. Denies: Dyspnea on exertion Gastrointestinal: Reports: Abdominal pain, Nausea, Vomiting, Diarrhea. Denies: Melena, Hematochezia Genitourinary: Reports: - - Urinary incontinence. Denies: Dysuria, Hematuria, Frequency Musculoskeletal: Reports: Myalgias. Denies: Back pain, Extremity Pain Skin: Denies: Rash, Wounds Neurological: Reports: Headache. Denies: Weakness, Numbness Physical Exam Vital Signs/Narrative: Vital Signs Temp Pulse Resp BP Pulse Ox 07/03/19 08:54 99.3 F H 134 H 36 H 90/63 97 Inital Vital Signs reviewed: Yes General: Well developed, Cachectic, No Acute Distress Head: Normocephalic, Atraumatic Eyes: Perrl, EOMI ENT: No rhinorrhea, Dry mucous membranes Neck: Supple, Nontender Cardiovascular: No murmurs, Tachycardia Respiratory: CTA bilaterally, Chest nontender, - - Patient is tachypneic Abdomen: Soft, Nondistended, Normal bowel sounds, Tender - Patient has diffuse tenderness to palpation throughout the abdomen, Guarding. Negative for: Rebound tenderness Back: Nontender, Normal Inspection Extremities: Nontender, No edema Skin: Normal color, No rash Neurological: Cranial nerves II-XII grossly intact, Normal Strength, Normal Sensation, Lethargic Psychological: Negative for: Tearful, Agitated Diagnostic/Tx/Re-eval - EKG Initial EKG Interpretation: Sinus Tachycardia - EKG shows a sinus tachycardia at a rate of 130. No ectopy. - Medical Decision Making Patient presented with altered mental status tachycardia and tachypnea. Though he was not in respiratory distress and his lung sounds were clear and ABG revealed a compensated metabolic acidosis. Initial chest x-ray possible infiltrative changes. March catheter was placed with only about 20 cc or so of the very probably end dark brown material. Following administration of IV fluids is only made about an additional 15 to 20 cc fluid. While receiving IV fluids, he was becoming progressively more tachycardic. His initial EKG showed a sinus tachycardia on the monitor. Demonstrates an ST depression which was confirmed on subsequent EKG to have ST depression inferiorly possibly some changes in aVR. His troponin was elevated at 0.7. 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 Most likely this is related due to his sepsis. CT of the abdomen pelvis demonstrated distended gallbladder with some ascites. Gallbladder ultrasound was ordered but unable to be obtained as the patient decompensated. The patient became even more tachycardic and tachypneic and a repeat examination found him to be in pulmonary edema. Discussed with the patient and family and decision was made to intubate him. Using etomidate and succinylcholine the patient was intubated using an 8-0 endotracheal tube without any difficulty and secured in place. Lung auscultation and capnography confirmed placement. His pressures have been labile occasionally hypotensive occasionally normotensive. Due to the severity of his illness a right central line internal jugular was placed under sterile ultrasound guidance obtained on the first attempt without any difficulty and sutured into place. Patient was kept sedated using propofol and fentanyl. He was administered broad-spectrum antibiotics including Zosyn and vancomycin. This covers both his urine sources based on prior cultures as well as lung sources. Case discussed with Dr. Moscoso and Dr. Pugh. - Critical Care Time Critical care time (excluding procedures): 30-74 minutes - 35 min ED Disposition - Plan for ED Patient: Disposition: Acute Care Hospital [facility] Diagnosis: Acute hypoxemic respiratory failure, UTI (urinary tract infection), Pneumonia, Pulmonary edema, Elevated troponin
[2019-07-03 09:18] LABS: Absolute Lymphocyte Count 0.25 X10^3/uL (0.83-4.51); Absolute Neutrophil Count 6.4 X10^3/uL (2.0-7.7); Basophil# 0.02 X10^3/uL; Basophil% 0.3 % (0-1); Eosinophil# 0.03 X10^3/uL; Eosinophils% 0.4 % (0-5); Hematocrit 34.8 % (40-54); Hemoglobin 11.9 g/dL (13.0-16.5); Lymphocyte # 0.25 X10^3/ul (4.0); Lymphocyte % 3.6 % (19-41); Mean Corp Hgb Conc 34.2 g/dL (32-36); Mean Corpuscular Hgb 31.6 pg (27.0-32.0); Mean Corpuscular Volume 92.3 fL (80-94); Mean Platelet Vol. 9.2 fl (6.2-12.0); Monocyte# 0.16 X10^3/uL; Monocyte% 2.3 % (0-10); NRBC Flagged by Analyzer 0 % (0-5); Neutrophil % 93.1 % (47-70); POSITIVE DIFFERENTIAL YES; POSITIVE MORPHOLOGY YES; Platelet Count 398 K/mm3 (150-450); RBC Distribution Width CV 13.2 % (11.6-14.6); RBC Distribution Width SD 44.3 fl (35.1-43.9); Red Blood Count 3.77 M/mm3 (4.6-6.2); White Blood Count 6.9 K/mm3 (4.4-11.0)
[2019-07-03 09:21] LABS: Differential Indicated SCAN CRITERIA MET
[2019-07-03 09:28] LABS: International Normalized Ratio 1.1; Prothrombin Time (Protime)PT. 13.7 SECONDS (11.7-14.9)
[2019-07-03 09:30] LABS: Partial Thromboplast Time 29.5 Seconds (24.1-36.2)
[2019-07-03 09:38] LABS: Differential Comment SCANNED
[2019-07-03] MEDS: 0.9% Normal Saline 1,000 ML 999 ML IV ×2 (09:40→10:42)
[2019-07-03 09:41] LABS: Allen Test POS; Base Excess -17 mmol/L (-2 to +2); Bicarbonate 8.7 mmol/L (22-26); Blood Gas Specimen Type ART; O2 Delivery Device Nasal Can; PO2 94 mmHG (75-100); SITE R Radial; SO2 97 % (95-99); Time Given 927; Total Carbon Dioxide 9 mmol/L; pCO2 15.4 mmHg (35-45); pH 7.36 (7.35-7.45)
[2019-07-03 09:51] LABS: ALB/GLOB Ratio 0.5 RATIO (0.9-2.4); AST(SGOT) 23 U/L (15-37); Alanine Aminotransfer ALT/SGPT 20 U/L (16-61); Albumin, Serum 2.3 g/dL (3.2-5.0); Alkaline Phosphatase 232 U/L (45-117); Anion Gap 7 (5-15); BUN 36 mg/dL (7-18); BUN/Creat Ratio 16.5 RATIO (10-20); Calcium,Total 9.2 mg/dL (8.5-10.1); Chloride 120 mmol/L (98-107); Creatinine, Serum 2.18 mg/dL (0.70-1.30); EST Glomerular Filtration Rate 33 mL/min (>60); Est Glom Filt Rate - Afr Amer 40 mL/min (>60); Estimated Creatinine Clearance 28.31 ml/min; Globulin 4.5 g/dL (2.2-4.2); Glucose 91 mg/dL (74-106); Magnesium 1.5 mg/dL (1.6-2.6); Potassium 3.3 mmol/L (3.5-5.1); Protein, Total 6.8 g/dL (6.4-8.2); Sodium Level 140 mmol/L (136-145)
--- NOTE | 2019-07-03 09:58 | RAD_ITS ---
STUDY: X-RAY CHEST REASON FOR EXAM: Male, 64 years old. Sob and body aches TECHNIQUE: Single AP portable view of the chest. COMPARISON: Comparison is made with prior examination dated March 01, 2019. FINDINGS: EKG electrodes are seen. There now is evidence of a mild degree of increased markings in the right lung base. This may represent either early infiltrate versus atelectasis. Follow-up is recommended There is no demonstrated pleural abnormality. Sternal cerclage wires and vascular clips are present from a prior sternotomy and coronary artery bypass graft procedure (CABG). Normal mediastinum and clinton. Normal visualized pulmonary arteries. There is atherosclerotic tortuosity of the aortic arch and descending thoracic aorta. There are diffuse degenerative changes of the visualized thoracic spine. Normal visualized ribs, clavicles, and shoulders. There is no demonstrated abnormality of the visualized soft tissue structures of the upper abdomen. RAD/Chest 1 View (Portable) IMPRESSION: Mild degree of increased markings at the right lung base. Radiographic follow-up is recommended. Electronically Signed: Alonzo Masterson, at 10:28 EDT , Service support ,
--- NOTE | 2019-07-03 10:00 | CT_ITS ---
STUDY: CT ABDOMEN AND PELVIS WITHOUT CONTRAST REASON FOR EXAM: Male, 64 years old. PT STATED SHORT OF BREATH, WEAKNESS RADIATION DOSAGE (If Supplied By Facility): CTDIvol = ( 6.04 ) mGy, DLP = ( 327.71 ) mGycm TECHNIQUE: Transaxial images were obtained from the dome of the diaphragm to the symphysis pubis without oral contrast, and without intravenous contrast. Sagittal and coronal images were reconstructed. Individualized dose optimization techniques were used for this CT. COMPARISON: Comparison is made with prior examination of March 01, 2019. FINDINGS: Patchy groundglass appearance in both lower lobes as well as in the right middle lobe. This has progressed as compared to prior study. Coronary artery calcification. Normal liver. The gallbladder is distended. I suspect sludge or gallstones within the gallbladder lumen. Normal spleen. Normal pancreas. Normal bilateral adrenal glands. Bilateral hydronephrosis. Bilateral perinephric stranding. There has been essentially no change since prior study. There is extensive calcification of the renal arteries and the intrarenal arterial branches. Normal visualized stomach. Normal small intestine. Normal colon. The appendix is visualized and appears normal. There is diffuse atherosclerotic calcification of the abdominal aorta, without a demonstrated aneurysm. Normal inferior vena cava. Normal retroperitoneum. A March catheter is seen within the urinary bladder. There is diffuse wall thickening of the urinary bladder. There is evidence of ascites in the pelvis as well as in the paracolic gutters bilaterally. Normal abdominal wall. There are diffuse degenerative changes of the visualized lumbar spine. CT/Abdomen/Pelvis without Cont IMPRESSION: Mild degree of ascites. Diffusely thickened urinary bladder wall. Extensive vascular calcifications as described. Bilateral hydronephrosis. This is unchanged. Mildly distended gallbladder with the findings suggestive of tiny gallstones or sludge within the gallbladder lumen. Electronically Signed: Alonzo Masterson, at 11:26 EDT , Service support ,
--- NOTE | 2019-07-03 10:04 | CPS ---
Critical Blood gas results of PCO2 15 read to by this FILL[employer] TRIMMER.
[2019-07-03 10:12] LABS: Lactic Acid 2.2 mmol/L (0.4-1.9)
[2019-07-03 10:37] LABS: Mucous, Urine 0 SEEN /hpf (<or=2+); Squamous Epithelial Cells - UA 0 SEEN /hpf (0-5)
--- NOTE | 2019-07-03 10:43 | EKG12_ITS ---
Test Reason : MD ORDERED Blood Pressure : / mmHG Vent. Rate : 127 BPM Atrial Rate : 087 BPM P-R Int : 000 ms QRS Dur : 082 ms QT Int : 406 ms P-R-T Axes : 000 001 070 degrees QTc Int : 590 ms Sinus Tach with PAC's Nonspecific ST abnormality , probably digitalis effect Abnormal ECG When compared with ECG of 03-JUL-2019 10:49, MANUAL COMPARISON REQUIRED, DATA IS UNCONFIRMED Confirmed by DALE WEBB ([id number]), editorial specialist SHERRON NEGEL ([id number]) on 07/05/2019 7:36:21 AM Referred By: JON Confirmed By:DALE WEBB
--- NOTE | 2019-07-03 10:49 | EKG12_ITS ---
Test Reason : INCREASED HEART Blood Pressure : / mmHG Vent. Rate : 136 BPM Atrial Rate : 136 BPM P-R Int : 216 ms QRS Dur : 074 ms QT Int : 292 ms P-R-T Axes : 000 -08 215 degrees QTc Int : 439 ms Sinus tachycardia with 1st degree A-V block Septal infarct , age undetermined Marked ST abnormality, possible inferior subendocardial injury Marked ST abnormality, possible anterolateral subendocardial injury Abnormal ECG Confirmed by JORGE LUIS HOLT, BHAVESH ([id number]), editor publications WYATT WILLARD ([id number]) on 07/09/2019 1:14:55 PM Referred By: Confirmed By:EVAN KANG MD
[2019-07-03 10:50] LABS: Color, Urine Brown (Yellow); Glucose, Dipstick Normal (Normal); Ketone-Dipstick 5 mg/dl (Negative); Nitrite-Dipstick Negative (Negative); Occult Blood-Urine 250 /ul (Negative); Protein-Dipstick 100 mg/dl (Negative); Specific Gravity, Urine 1.025 (1.002-1.030); Urine Bilirubin Dipstick Negative (Negative); Urine Clarity Turbid (Clear); Urine Urobilinogen Normal (Normal); Urine pH 6.5 (5.0 - 8.0)
[2019-07-03 11:04] LABS: Bacteria 1+ /hpf (None Seen); Leukocyte Esterase-Dipstick 500 /ul (Negative); Red Blood Cells-Urine 0-5 SEEN /hpf (0-5); White Blood Cells >100 SEEN /hpf (0-5)
--- NOTE | 2019-07-03 12:02 | RAD_ITS ---
STUDY: X-RAY CHEST REASON FOR EXAM: Male, 64 years old. SOB. TECHNIQUE: Single frontal view of the chest. COMPARISON: Earlier same day. FINDINGS: Cardiac silhouette unremarkable. Pulmonary vascularity unremarkable. Aorta unremarkable. Median sternotomy wires are present. Interval increase in diffuse patchy pulmonary opacities, most prominently right lower lobe. Small right effusion. Possible small right upper lobe pulmonary nodule. Upper abdomen unremarkable. Osseous structures intact. No pneumothorax. RAD/Chest 1 View (Portable) IMPRESSION: Interval increase in diffuse pulmonary opacities more prominently at the right lower lobe as compared to a radiograph from several hours prior. This may represent worsening pulmonary edema versus acute infectious process as clinically indicated. Question small right upper lobe pulmonary nodule which may be further assessed with chest CT. Electronically Signed: Anthony Prasad, at 12:58 EDT Tel , Service support ,
[2019-07-03] MEDS: Etomidate 20 MG/10 ML Vial IV (12:17)
[2019-07-03] MEDS: Succinylcholine Chloride 200 MG/10 ML Vial 60 MG IV (12:17)
[2019-07-03] MEDS: Propofol 10MG/Ml 1,000 MG/100 ML Bottle 3.7 MG CONT INF (12:27)
--- NOTE | 2019-07-03 12:33 | RAD_ITS ---
STUDY: X-RAY CHEST REASON FOR EXAM: Male, 64 years old. POST INTUBATION, CENTRAL LINE AND OG TUBE INSERTION TECHNIQUE: Single AP portable view of the chest. COMPARISON: Comparison is made with prior study done earlier in the day. FINDINGS: An endotracheal tube is in situ. The tip is at 5.8 cm proximal to the concepcion. An oral gastric tube is seen with the tip at the GE junction. A right-sided internal jugular venous catheter has been placed with the tip in the proximal superior vena cava. Infiltration in the right lower lobe as well as in the perihilar regions bilaterally. There has been no change. There is no demonstrated pleural abnormality. Sternal cerclage wires and vascular clips are present from a prior sternotomy and coronary artery bypass graft procedure (CABG). Normal mediastinum and clinton. Normal visualized pulmonary arteries. There is atherosclerotic calcification of the aortic arch with tortuosity. Normal visualized thoracic spine. Normal visualized ribs, clavicles, and shoulders. There is no demonstrated abnormality of the visualized soft tissue structures of the upper abdomen. RAD/CXR for Line Placement IMPRESSION: The tip of the endotracheal tube is at 5.8 cm proximal to the concepcion. The tip of the orogastric tube is at the GE junction. The remainder of the examination is unchanged. Electronically Signed: Alonzo Masterson, at 14:08 EDT , Service support ,
[2019-07-03] MEDS: Propofol 200 MG/20 ML Vial 60 MG IV BOLUS (12:37)
[2019-07-03] MEDS: fentaNYL drip 100 ML 2.5 MCG IV (12:51)
--- NOTE | 2019-07-03 13:19 | NURSING ---
DR KONG IN ER DR HENSLEY FOR DR GRAY
--- NOTE | 2019-07-03 13:28 | CON.PCM_ITS ---
Reason for Consult Date of Consultation: 07/03/19 Reason for Consultation: Severe Sepsis, Acute Respiratory Failure History of Present Illness: The patient is a 64-year-old male, with a history as outlined below, who presented to the emergency department on July 02 with complaints of shortness of breath. History pertinent to his hospitalization was obtained primarily via chart review, as the patient is currently intubated and there is no family available at the bedside. The patient's family has been concerned over the patient's health over the course of the last year. He has apparently been declining in health. The patient is currently followed by Dr. Liu of cardiology due to a history of coronary artery disease status post bypass surgery in 2008. He also has a history of obstructive sleep apnea, for which he is noncompliant with nocturnal Pap therapy, peripheral vascular disease and possible COPD. In January 2019, the patient was admitted to the [facility] for small bowel obstruction with exploratory laparotomy and lysis of adhesions along with severe protein calorie malnutrition. On presentation to the emergency department, the patient was noted to be febrile, tachycardic and tachypneic. Laboratory evaluation revealed no evidence of a leukocytosis. INR was within normal limits at 1.1. Chemistry profile was notable for a potassium of 3.3, bicarbonate of 13 and creatinine of 2.18. Magnesium was low at 1.5. Initial troponin was elevated at 0.751. BNP was increased to 497. Initial plain film chest x-ray revealed a possible early infiltrate in the right lung base. In the process of receiving supplemental IV fluid hydration in the emergency department, the patient's respiratory status declined. A follow-up chest x-ray revealed worsening airspace disease, primarily in the right lung base. Due to decompensation in the patient's respiratory status, he was emergently intubated in the emergency department. The patient was placed on broad-spectrum antimicrobials and admitted to the medical intensive care unit for further management. Past Medical History Past Medical History (Chronic Problems): Chronic Problems (Last Reviewed 05/31/19 @ 14:31 by Eboni Jacinto) S/P CABG x 4 (Chronic ~2008) HOFFMAN to LAD, SVG to 1st Diagonal, SVG to 1st OM, SVG to Right PDA, Done @ [facility]. Atherosclerotic heart disease of [place] coronary artery without angina pectoris (Chronic) History of non-ST elevation myocardial infarction (NSTEMI) (Chronic 03/22/18) History of TIA (transient ischemic attack) (Chronic) PAD (peripheral artery disease) (Chronic) HTN (hypertension) (Chronic) HLD (hyperlipidemia) (Chronic) COPD (chronic obstructive pulmonary disease) (Chronic) Obstructive sleep apnea (Chronic) Raynaud's syndrome (Chronic) Medical History: Medical History (Last Reviewed 05/31/19 @ 14:31 by Eboni Jacinto) Sepsis due to urinary tract infection (Inactive) A41.9, N39.0 Severe protein-calorie malnutrition (Acute) E43 Hypotension (Resolved) I95.9 Atherosclerotic heart disease of [place] coronary artery without angina pectoris (Chronic) I25.10 History of non-ST elevation myocardial infarction (NSTEMI) (Chronic) Onset Date: 03/22/18 I25.2 History of TIA (transient ischemic attack) (Chronic) Z86.73 PAD (peripheral artery disease) (Chronic) I73.9 HTN (hypertension) (Chronic) I10 Renal insufficiency (Acute) N28.9 HLD (hyperlipidemia) (Chronic) E78.5 COPD (chronic obstructive pulmonary disease) (Chronic) J44.9 Obstructive sleep apnea (Chronic) G47.33 CARLOS EDUARDO (acute kidney injury) (Resolved) N17.9 Urinary tract infection (Resolved) N39.0 Raynaud's syndrome (Chronic) I73.00 Illicit drug use (Inactive) F19.90 ETOH abuse (Inactive) F10.10 Small bowel obstruction Onset Date: 02/11/19 K56.609 Allergies No Known Allergies Allergy (Verified 03/01/19 00:06) Home Medications: Ambulatory Orders Medication Instructions Recorded Albuterol Inhaler [Ventolin Hfa] 2 puff INHALATION Q4H PRN PRN 07/12/17 Fluticasone/Vilanterol [Breo 1 ea IH DAILY 07/12/17 Ellipta 200-25 Mcg INH] Gabapentin [Neurontin] 600 mg PO BID 07/12/17 Omeprazole [Prilosec] 20 mg PO DAILY 07/12/17 Aspirin [Aspir-Low] 81 mg PO DAILY 09/08/18 Fluoxetine HCl 20 mg PO DAILY 09/08/18 Metoprolol Tartrate [Lopressor 25 mg PO BID 09/08/18 (beta sascha)] Ascorbic Acid [Vitamin C] 500 mg PO DAILY@0800 03/01/19 clopidogrel 75 mg tablet 75 mg PO DAILY #90 tab 06/25/19 isosorbide mononitrate 30 mg 45 mg PO DAILY #90 tab 06/25/19 tablet,extended release 24 hr nitroglycerin 0.4 mg sublingual 0.4 mg SUBLINGUAL Q5M PRN #25 tab 06/25/19 tablet Atorvastatin Calcium [Lipitor] 40 mg PO QHS 07/03/19 Folic Acid 1 mg PO DAILY@0800 07/03/19 Gabapentin [Neurontin] 800 mg PO QHS 07/03/19 Multivitamin with Minerals 1 tab PO DAILY 07/03/19 [Multivitamins with Minerals] NIFEdipine [Procardia XL] 90 mg PO DAILY 07/03/19 Pantoprazole Sodium 20 mg PO DAILY 07/03/19 Thiamine Hydrochloride [Vitamin B1] 100 mg PO DAILYCM 07/03/19 Surgical History: Surgical History (Last Reviewed 05/31/19 @ 14:31 by Eboni Jacinto) S/P CABG x 4 (Chronic) Onset Date: ~2008 Z95.1 HOFFMAN to LAD, SVG to 1st Diagonal, SVG to 1st OM, SVG to Right PDA, Done @ [facility]. History of appendectomy Z90.49 History of tonsillectomy Z90.89 Hx of exploratory laparotomy Onset Date: 02/11/19 Z98.890 with lysis of adhesions, [facility] history of pelvic drain tube placement Onset Date: 02/2019 Placed at [facility]; Removed 03/31/2019 Surgical History: appendectomy, coronary bypass surgery, tonsillectomy, - - appendix out, cabg , tonsils out, eye surgery, heart stent before surgery., Bowel obstruction Smoking Status: Current every day smoker - *Family History Maternal Family History: Family History (Last Reviewed 05/31/19 @ 14:31 by Eboni Jacinto) Father Cancer Mother Murder Brother Colon cancer Brother Diabetes Brother Diabetes Brother Diabetes Sister Diabetes History Items: - - Patient reports that her mother was murdered Paternal Family History: Family History (Last Reviewed 05/31/19 @ 14:31 by Eboni Jacinto) Father Cancer Mother Murder Brother Colon cancer Brother Diabetes Brother Diabetes Brother Diabetes Sister Diabetes History Items: Cancer, - - lung cancer Sibling Family History: Family History (Last Reviewed 05/31/19 @ 14:31 by Eboni Jacinto) Father Cancer Mother Murder Brother Colon cancer Brother Diabetes Brother Diabetes Brother Diabetes Sister Diabetes History Items: Diabetes Review of Systems Unable to obtain accurate/complete ROS d/t: Due to current intubation and mechanical ventilation status Patient Problems: Active and Suspected Problems (Last Reviewed 05/31/19 @ 14:31 by Eboni Jacinto) Severe sepsis (Acute) Bilateral pneumonia (Acute) Acute hypoxic respiratory failure (Acute) Acute hypoxemic respiratory failure (Acute) UTI (urinary tract infection) (Acute) Pneumonia (Acute) Pulmonary edema (Acute) Elevated troponin (Acute) Objective: The patient's most recent lab work, culture data and imaging studies have all been personally reviewed. - Physical Exam Vitals/I&O's: Vital Signs Temp Pulse Resp BP Pulse Ox 98.6 F 153 H 26 H 96/65 98 07/03/19 12:57 07/03/19 13:16 07/03/19 13:16 07/03/19 13:16 07/03/19 13:16 Oxygen Flow Rate (L/min) 2 Oxygen Delivery Method Mechanical Ventilator Weight: 135 lb 5.821 oz Body Mass Index (BMI) 18.8 Finger Stick Blood Glucose 88 Intake and Output for Last 24 Hours 07/01/19 07/02/19 07/03/19 23:59 23:59 23:59 Intake Total 2104.63 / 2104.63 Balance 2104.63 / 2104.63 General: - - Intubated, sedated and mechanically ventilated. No ventilator dyssynchrony noted on assist control mode mechanical ventilation. HEENT: Atraumatic, PERRLA, Normocephalic Oral: No Gingival or Mucosal Lesions/ Ulcerations, - - Endotracheal and OG tubes currently in place Neck: Supple, No Nodes, Trachea Midline, - - Right IJ central venous catheter in place Lungs: No wheeze, No rales, Diminished, Rhonchi Cardiovascular: Normal S1, Normal S2, No murmurs, Tachycardic Abdomen: Bowel Sounds Present, Soft, Non Tender Extremities: No clubbing, No cyanosis, No edema Skin: No breakdown Musculoskeletal: Cachexia, Muscle Wasting Lymphatic: No Cervical, Supraclavicular, or Inguinal Adenopathy Neurological: - - No focal neurological deficits. Currently sedated on the ventilator. Labs (Last 48 Hours) 07/03/19 07/03/19 07/03/19 09:00 09:00 09:00 WBC 6.9 RBC 3.77 L Hgb 11.9 L Hct 34.8 L MCV 92.3 MCH 31.6 MCHC 34.2 RDW Std Deviation 44.3 H RDW Coeff of [place] 13.2 Plt Count 398 MPV 9.2 Immature Gran % (Auto) 0.300 Neut % (Auto) 93.1 H Lymph % (Auto) 3.6 L [place] % (Auto) 2.3 Eos % (Auto) 0.4 Baso % (Auto) 0.3 Absolute Neuts (auto) 6.4 Absolute Lymphs (auto) 0.25 L Nucleated RBC % 0 Differential Comment SCANNED PT 13.7 INR 1.1 APTT 29.5 Specimen Type Sample Site pH Bicarbonate Actual POC Total CO2 Base Excess O2 Saturation ABG pCO2 ABG pO2 Khang Test O2 Delivery Device Liter Flow Blood Gas Notified Whom Blood Gas Notified Time Sodium 140 Potassium 3.3 L Chloride 120 H Carbon Dioxide 13.0 L Anion Gap 7 BUN 36 H Creatinine 2.18 H Estim Creat Clear Calc 28.31 Est GFR (MDRD) Af Amer 40 L Est GFR (MDRD) Non-Af 33 L BUN/Creatinine Ratio 16.5 Glucose 91 Lactic Acid Calcium 9.2 Magnesium 1.5 L Total Bilirubin 0.20 AST 23 ALT 20 Alkaline Phosphatase 232 H Troponin I 0.751 H* Total Protein 6.8 Albumin 2.3 L Globulin 4.5 H Albumin/Globulin Ratio 0.5 L Urine Color Urine Clarity Urine pH Ur Specific [place] Urine Protein Urine Glucose (UA) Urine Ketones Urine Occult Blood Urine Nitrite Urine Bilirubin Urine Urobilinogen Ur Leukocyte Esterase Urine RBC Urine WBC Ur Squamous Epith Cells Urine Bacteria Urine Mucus 07/03/19 07/03/19 07/03/19 09:26 09:33 10:30 WBC RBC Hgb Hct MCV MCH MCHC RDW Std Deviation RDW Coeff of [place] Plt Count MPV Immature Gran % (Auto) Neut % (Auto) Lymph % (Auto) [place] % (Auto) Eos % (Auto) Baso % (Auto) Absolute Neuts (auto) Absolute Lymphs (auto) Nucleated RBC % Differential Comment PT INR APTT Specimen Type ART Sample Site R Radial pH 7.36 Bicarbonate Actual 8.7 L POC Total CO2 9 Base Excess -17 L O2 Saturation 97 ABG pCO2 15.4 L* ABG pO2 94 Khang Test POS O2 Delivery Device Nasal Can Liter Flow 2.0 Blood Gas Notified Whom ED Blood Gas Notified Time 927 Sodium Potassium Chloride Carbon Dioxide Anion Gap BUN Creatinine Estim Creat Clear Calc Est GFR (MDRD) Af Amer Est GFR (MDRD) Non-Af BUN/Creatinine Ratio Glucose Lactic Acid 2.2 H* Calcium Magnesium Total Bilirubin AST ALT Alkaline Phosphatase Troponin I Total Protein Albumin Globulin Albumin/Globulin Ratio Urine Color Brown Urine Clarity Turbid Urine pH 6.5 Ur Specific [place] 1.025 Urine Protein 100 H Urine Glucose (UA) Normal Urine Ketones 5 H Urine Occult Blood 250 H Urine Nitrite Negative Urine Bilirubin Negative Urine Urobilinogen Normal Ur Leukocyte Esterase 500 H Urine RBC 0-5 SEEN Urine WBC >100 SEEN Ur Squamous Epith Cells 0 SEEN Urine Bacteria 1+ Urine Mucus 0 SEEN Microbiology 07/03/19 09:47 Mucosa - Nose Influenza Types A,B Direct FA (LINA) - Final Clinical Impression(s) from Imaging Studies Chest X-Ray 07/03/19 09:58 IMPRESSION: Mild degree of increased markings at the right lung base. Radiographic follow-up is recommended. Electronically Signed: Alonzo Masterson, at 10:28 EDT , Service support , Abdomen/Pelvis CT 07/03/19 10:00 IMPRESSION: Mild degree of ascites. Diffusely thickened urinary bladder wall. Extensive vascular calcifications as described. Bilateral hydronephrosis. This is unchanged. Mildly distended gallbladder with the findings suggestive of tiny gallstones or sludge within the gallbladder lumen. Electronically Signed: Alonzo Masterson, at 11:26 EDT , Service support , Chest X-Ray 07/03/19 12:02 IMPRESSION: Interval increase in diffuse pulmonary opacities more prominently at the right lower lobe as compared to a radiograph from several hours prior. This may represent worsening pulmonary edema versus acute infectious process as clinically indicated. Question small right upper lobe pulmonary nodule which may be further assessed with chest CT. Electronically Signed: Anthony Prasad, at 12:58 EDT Tel , Service support , Current Medications Propofol (Diprivan) 1,000 mg in 100 mls @ 3.684 mls/hr CONT INF .Q12H EMILIE; Protocol Last Titration: 07/03/19 13:07 Dose: 25 mcg/kg/min, 9.2 mls/hr Documented by: Fentanyl () 100 mls @ 2.5 mls/hr IV UD EMILIE; Protocol Last Titration: 07/03/19 13:21 Dose: 50 mcg/hr, 5 mls/hr Documented by: Magnesium Sulfate 2 gm/ Sodium (Chloride) 104 mls @ 52 mls/hr IV X1 ONE Stop: 07/03/19 15:23 Vancomycin HCl 1,500 mg/ (Sodium Chloride) 530 mls @ 250 mls/hr IV X1 ONE Stop: 07/03/19 15:32 Assessment/Plan Active and Suspected Problems (Last Reviewed 05/31/19 @ 14:31 by Eboni Jacinto) Severe sepsis (Acute) Bilateral pneumonia (Acute) Acute hypoxic respiratory failure (Acute) Acute hypoxemic respiratory failure (Acute) UTI (urinary tract infection) (Acute) Pneumonia (Acute) Pulmonary edema (Acute) Elevated troponin (Acute) RECOMMENDATIONS: 1. Continue broad-spectrum antimicrobials, pending infectious work-up. 2. Check strep and urine Legionella antigens along with respiratory viral panel. Check MRSA screen as well. Obtain sputum culture. 3. Start scheduled Atrovent, given tachycardia. 4. Start IV methylprednisone 40 mg every 6 hours. 5. Obtain arterial blood gas. 6. Trend troponins and obtain echocardiogram. 7. Electrolyte repletion as ordered. 8. Discontinue supplemental IV fluids. Initiate vasopressor support, if clinically indicated, to maintain a mean arterial pressure at or above 65 mmHg. 9. Initiate appropriate ICU prophylaxis. IMPRESSIONS: 1. Severe sepsis Etiology appears to be underlying pulmonary infectious process with right lower lobe infiltrate noted on chest imaging. The patient has been adequately volume resuscitated at this time. Recommend discontinuation of supplemental IV fluids. If needed, vasopressor support will be initiated to maintain hemodynamic stability. Recommend continuing broad-spectrum antimicrobial coverage, pending further infectious work-up. 2. Acute hypoxemic respiratory failure The patient does apparently have a reported history of COPD and appears to be in a state of exacerbation due to underlying pneumonia, coupled with respiratory compromise which was likely induced by volume resuscitation for his sepsis. The patient did have to be emergently intubated in the emergency department. For now, he will be maintained on assist control mode of mechanical ventilation. Will obtain arterial blood gas and follow-up chest x-ray. Infectious work-up is currently underway. Given the patient's questionable history of obstructive lung disease, he will be started on Atrovent aerosols, given persistent tachycardia. In addition, IV steroids will also be started. Echocardiogram is currently pending. 3. Acute kidney injury Likely ischemic ATN in the setting of #1. As noted above, the patient has received IV fluid resuscitation and will be maintained on vasopressor support, as clinically indicated, to maintain hemodynamic stability. Continue to monitor urine output. There is no current indication for renal replacement therapy. 4. Troponin elevation/coronary artery disease status post bypass surgery in 2008 Unclear if troponin elevation is due to demand ischemia in the setting of #1 versus an intrinsic cardiac event. Cardiology has been consulted to evaluate the patient. Echocardiogram is currently pending. We will continue to trend troponins. 5. Hypokalemia/hypomagnesemia Aggressive electrolyte repletion as indicated. Recheck levels in the morning. 6. Questionable COPD history/peripheral vascular disease/protein calorie malnutrition Complicates care, management, recovery and prognosis. Continue current supportive measures as noted above. Will obtain nutrition consult for tube feed recommendations. TIME: 40 minutes of critical care time, independent of procedures, was spent addressing the patient's severe sepsis, acute hypoxemic respiratory failure, acute kidney injury, troponin elevation, electrolyte derangement, review of all data and collaboration with the care team. [phone]) [phone] Critical care first hour
[2019-07-03 13:31] LABS: Reflex Lactate? Y
--- NOTE | 2019-07-03 13:37 | NURSING ---
ICU AYDEN RESP FAILURE, SEVERE SEPSIS, UTI
--- NOTE | 2019-07-03 13:59 | NURSING ---
ICU 8
[2019-07-03 14:07] LABS: BNP,B-Type NATRIURETIC PEPTIDE 497.6 pg/mL (0-100)
[2019-07-03 14:15] LABS: Lactic Acid 1.5 mmol/L (0.4-1.9)
--- NOTE | 2019-07-03 14:17 | HP.PCM_ITS ---
Problem List (1) Sepsis due to urinary tract infection Status: Inactive (2) Severe protein-calorie malnutrition Status: Acute (3) Hypotension Status: Resolved (4) S/P CABG x 4 Status: Chronic Comment: HOFFMAN to LAD, SVG to 1st Diagonal, SVG to 1st OM, SVG to Right PDA, Done @ [facility]. (5) Atherosclerotic heart disease of [place] coronary artery without angina pectoris Status: Chronic (6) History of non-ST elevation myocardial infarction (NSTEMI) Status: Chronic (7) History of TIA (transient ischemic attack) Status: Chronic (8) PAD (peripheral artery disease) Status: Chronic (9) HTN (hypertension) Status: Chronic (10) Renal insufficiency Status: Acute (11) HLD (hyperlipidemia) Status: Chronic (12) COPD (chronic obstructive pulmonary disease) Status: Chronic (13) Obstructive sleep apnea Status: Chronic (14) CARLOS EDUARDO (acute kidney injury) Status: Resolved (15) Hyponatremia with decreased serum osmolality Status: Inactive (16) Urinary tract infection Status: Resolved Qualifiers: Urinary tract infection type: acute cystitis Hematuria presence: with hematuria Qualified Code(s): N30.01 - Acute cystitis with hematuria (17) Raynaud's syndrome Status: Chronic (18) Illicit drug use Status: Inactive (19) ETOH abuse Status: Inactive (20) Severe sepsis Status: Acute (21) Bilateral pneumonia Status: Acute (22) Acute hypoxic respiratory failure Status: Acute History of Present Illness Date of Admission: 07/03/19 Chief Complaint: Shortness of breath, sudden onset today The patient is a 64 year old M with multiple comorbidities as listed above and recurrent admission, last one in February 2019 for severe sepsis secondary to postoperative infection with ileus after laparotomy for small bowel obstruction secondary to volvulus, CARLOS EDUARDO and UTI. This time, patient was brought in to ER for acute shortness of breath, sudden onset. As per the ER physician, he also developed cough yesterday and vomiting today with shortness of breath. Patient got progressively short of breath which led to intubation. In ER, patient also found tachycardic. Blood pressure was low 101/68, tachypneic. Patient has a right IJ central venous catheter. Patient is not yet started on vasopressors. I saw the patient after he was intubated. I talked to patient's daughter who st ates patient was a normal baseline when she saw him yesterday. Chest x-ray independently reviewed and shows bilateral lower lobes alveolar pattern infiltrates. Discussed with cattle driver. EKG was done. First EKG shows sinus tachycardia at 130 bpm. Repeat EKG after an hour shows sinus tachycardia with ST segment changes, inferior, depression and anterior lateral leads. Dr. Liu was called. Patient also had CT abdomen pelvis done which shows mild degree of ascites, bilateral hydronephrosis, diffusely thickened urinary bladder wall. Is further being admitted in ICU. [] Past Medical History Past Medical History (Chronic Problems): Chronic Problems (Last Reviewed 05/31/19 @ 14:31 by Eboni Jacinto) S/P CABG x 4 (Chronic ~2008) HOFFMAN to LAD, SVG to 1st Diagonal, SVG to 1st OM, SVG to Right PDA, Done @ [facility]. Atherosclerotic heart disease of [place] coronary artery without angina pectoris (Chronic) History of non-ST elevation myocardial infarction (NSTEMI) (Chronic 03/22/18) History of TIA (transient ischemic attack) (Chronic) PAD (peripheral artery disease) (Chronic) HTN (hypertension) (Chronic) HLD (hyperlipidemia) (Chronic) COPD (chronic obstructive pulmonary disease) (Chronic) Obstructive sleep apnea (Chronic) Raynaud's syndrome (Chronic) Medical History: Medical History (Last Reviewed 05/31/19 @ 14:31 by Eboni Jacinto) Sepsis due to urinary tract infection (Resolved) A41.9, N39.0 Severe protein-calorie malnutrition (Acute) E43 Hypotension (Resolved) I95.9 Atherosclerotic heart disease of [place] coronary artery without angina pectoris (Chronic) I25.10 History of non-ST elevation myocardial infarction (NSTEMI) (Chronic) Onset Date: 03/22/18 I25.2 History of TIA (transient ischemic attack) (Chronic) Z86.73 PAD (peripheral artery disease) (Chronic) I73.9 HTN (hypertension) (Chronic) I10 Renal insufficiency (Acute) N28.9 HLD (hyperlipidemia) (Chronic) E78.5 COPD (chronic obstructive pulmonary disease) (Chronic) J44.9 Obstructive sleep apnea (Chronic) G47.33 CARLOS EDUARDO (acute kidney injury) (Resolved) N17.9 Urinary tract infection (Resolved) N39.0 Raynaud's syndrome (Chronic) I73.00 Illicit drug use (Inactive) F19.90 ETOH abuse (Inactive) F10.10 Small bowel obstruction Onset Date: 02/11/19 K56.609 Allergies No Known Allergies Allergy (Verified 03/01/19 00:06) Home Medications: Ambulatory Orders Medication Instructions Recorded Albuterol Inhaler [Ventolin Hfa] 2 puff INHALATION Q4H PRN PRN 07/12/17 Fluticasone/Vilanterol [Breo 1 ea IH DAILY 07/12/17 Ellipta 200-25 Mcg INH] Gabapentin [Neurontin] 600 mg PO BID 07/12/17 Omeprazole [Prilosec] 20 mg PO DAILY 07/12/17 Aspirin [Aspir-Low] 81 mg PO DAILY 09/08/18 Fluoxetine HCl 20 mg PO DAILY 09/08/18 Metoprolol Tartrate [Lopressor 25 mg PO BID 09/08/18 (beta sascha)] Ascorbic Acid [Vitamin C] 500 mg PO DAILY@0800 03/01/19 clopidogrel 75 mg tablet 75 mg PO DAILY #90 tab 06/25/19 isosorbide mononitrate 30 mg 45 mg PO DAILY #90 tab 06/25/19 tablet,extended release 24 hr nitroglycerin 0.4 mg sublingual 0.4 mg SUBLINGUAL Q5M PRN #25 tab 06/25/19 tablet Atorvastatin Calcium [Lipitor] 40 mg PO QHS 07/03/19 Folic Acid 1 mg PO DAILY@0800 07/03/19 Gabapentin [Neurontin] 800 mg PO QHS 07/03/19 Multivitamin with Minerals 1 tab PO DAILY 07/03/19 [Multivitamins with Minerals] NIFEdipine [Procardia XL] 90 mg PO DAILY 07/03/19 Pantoprazole Sodium 20 mg PO DAILY 07/03/19 Thiamine Hydrochloride [Vitamin B1] 100 mg PO DAILYCM 07/03/19 Surgical History: Surgical History (Last Reviewed 05/31/19 @ 14:31 by Eboni Jacinto) S/P CABG x 4 (Chronic) Onset Date: ~2008 Z95.1 HOFFMAN to LAD, SVG to 1st Diagonal, SVG to 1st OM, SVG to Right PDA, Done @ [facility]. History of appendectomy Z90.49 History of tonsillectomy Z90.89 Hx of exploratory laparotomy Onset Date: 02/11/19 Z98.890 with lysis of adhesions, [facility] history of pelvic drain tube placement Onset Date: 02/2019 Placed at [facility]; Removed 03/31/2019 Surgical History: appendectomy, coronary bypass surgery, tonsillectomy, - - appendix out, cabg , tonsils out, eye surgery, heart stent before surgery., Bowel obstruction Smoking Status: Current every day smoker - *Family History Maternal Family History: Family History (Last Reviewed 05/31/19 @ 14:31 by Eboni Jacinto) Father Cancer Mother Murder Brother Colon cancer Brother Diabetes Brother Diabetes Brother Diabetes Sister Diabetes History Items: - - Patient reports that her mother was murdered Paternal Family History: Family History (Last Reviewed 05/31/19 @ 14:31 by Eboni Jacinto) Father Cancer Mother Murder Brother Colon cancer Brother Diabetes Brother Diabetes Brother Diabetes Sister Diabetes History Items: Cancer, - - lung cancer Sibling Family History: Family History (Last Reviewed 05/31/19 @ 14:31 by Eboni Jacinto) Father Cancer Mother Murder Brother Colon cancer Brother Diabetes Brother Diabetes Brother Diabetes Sister Diabetes History Items: Diabetes Review of Systems Unable to obtain accurate/complete ROS d/t: The patient is intubated and sedated. VTE Information - Inpt Only VTE Present on Admission: No VTE Mechan Device Prophylaxis: None VTE Pharm Prophylaxis ordered?: Yes Patient Problems: Active and Suspected Problems (Last Reviewed 05/31/19 @ 14:31 by Eboni Jacinto) Severe sepsis (Acute) Bilateral pneumonia (Acute) Acute hypoxic respiratory failure (Acute) - Physical Exam Vitals/I&O's: Vital Signs Temp Pulse Resp BP Pulse Ox 98.7 F 147 H 24 H 88/68 L 97 07/03/19 13:50 07/03/19 13:50 07/03/19 13:50 07/03/19 13:50 07/03/19 13:50 Oxygen Flow Rate (L/min) 2 Oxygen Delivery Method Mechanical Ventilator Weight: 135 lb 5.821 oz Body Mass Index (BMI) 18.8 Finger Stick Blood Glucose 88 Intake and Output for Last 24 Hours 07/01/19 07/02/19 07/03/19 23:59 23:59 23:59 Intake Total 2112. / 2112.04 Balance 2112.2112.04 General: - - Sedated and intubated. HEENT: PERRLA Oral: - - ET and OG tube. Neck: Supple, No JVD, - - Right IJ CVC. No hematoma. Lungs: No rales, Diminished - Air entry diminished., Rhonchi, Wheezes, - Cardiovascular: Normal S1, Normal S2, No murmurs, Tachycardic Abdomen: Bowel Sounds Present, Soft, Non-Distended, Hypoactive Bowel Sounds, - - Abdomen was tender as per ER physician; I could not elicit tenderness as patient is sedated Skin: No rashes, No breakdown Musculoskeletal: No Tenderness to Palpation of Joints or Extremities, Arthritic Changes, Muscle Wasting Neurological: - - Neuro exam could not be obtained as patient is sedated Microbiology Past 72 Hours 07/03/19 09:47 Mucosa - Nose Influenza Types A,B Direct FA (LINA) - Final Laboratory Results 07/03/19 09:00: WBC 6.9, RBC 3.77 L, Hgb 11.9 L, Hct 34.8 L, MCV 92.3, MCH 31.6, MCHC 34.2, RDW Std Deviation 44.3 H, RDW Coeff of [place] 13.2, Plt Count 398, MPV 9.2, Immature Gran % (Auto) 0.300, Neut % (Auto) 93.1 H, Lymph % (Auto) 3.6 L, [place] % (Auto) 2.3, Eos % (Auto) 0.4, Baso % (Auto) 0.3, Absolute Neuts (auto) 6.4, Absolute Lymphs (auto) 0.25 L, Nucleated RBC % 0, Differential Comment SCANNED 07/03/19 09:00: PT 13.7, INR 1.1, APTT 29.5 07/03/19 09:00: Sodium 140, Potassium 3.3 L, Chloride 120 H, Carbon Dioxide 13.0 L, Anion Gap 7, BUN 36 H, Creatinine 2.18 H, Estim Creat Clear Calc 28.31, Est GFR (MDRD) Af Amer 40 L, Est GFR (MDRD) Non-Af 33 L, BUN/Creatinine Ratio 16.5, Glucose 91, Calcium 9.2, Magnesium 1.5 L, Total Bilirubin 0.20, AST 23, ALT 20, Alkaline Phosphatase 232 H, Troponin I 0.751 H*, Total Protein 6.8, Albumin 2.3 L, Globulin 4.5 H, Albumin/Globulin Ratio 0.5 L 07/03/19 09:00: B-Natriuretic Peptide 497.6 H 07/03/19 09:00: Lactic Acid 1.5 07/03/19 09:26: Lactic Acid 2.2 H* 07/03/19 09:33: Specimen Type ART, Sample Site R Radial, pH 7.36, Bicarbonate Actual 8.7 L, POC Total CO2 9, Base Excess -17 L, O2 Saturation 97, ABG pCO2 15.4 L*, ABG pO2 94, Khang Test POS, O2 Delivery Device Nasal Can, Liter Flow 2.0, Blood Gas Notified Whom ED MD, Blood Gas Notified Time 927 07/03/19 10:30: Urine Color Brown, Urine Clarity Turbid, Urine pH 6.5, Ur Specific Fenton 1.025, Urine Protein 100 H, Urine Glucose (UA) Normal, Urine Ketones 5 H, Urine Occult Blood 250 H, Urine Nitrite Negative, Urine Bilirubin Negative, Urine Urobilinogen Normal, Ur Leukocyte Esterase 500 H, Urine RBC 0-5 SEEN, Urine WBC >100 SEEN, Ur Squamous Epith Cells 0 SEEN, Urine Bacteria 1+, Urine Mucus 0 SEEN Current Medications Propofol (Diprivan) 1,000 mg in 100 mls @ 3.684 mls/hr CONT INF .Q12H EMILIE; Protocol Last Titration: 07/03/19 13:45 Dose: 30 mcg/kg/min, 11.1 mls/hr Documented by: Fentanyl () 100 mls @ 2.5 mls/hr IV UD EMILIE; Protocol Last Titration: 07/03/19 13:52 Dose: 75 mcg/hr, 7.5 mls/hr Documented by: Magnesium Sulfate 2 gm/ Sodium (Chloride) 104 mls @ 52 mls/hr IV X1 ONE Stop: 07/03/19 15:23 Vancomycin HCl 1,500 mg/ (Sodium Chloride) 530 mls @ 250 mls/hr IV X1 ONE Stop: 07/03/19 15:32 Last Admin: 07/03/19 14:00 Dose: 250 mls/hr Documented by: Assessment/Plan All Active Problems (Last Reviewed 05/31/19 @ 14:31 by Eboni Jacinto) Severe sepsis (Acute) Bilateral pneumonia (Acute) Acute hypoxic respiratory failure (Acute) Severe protein-calorie malnutrition (Acute) Hypotension (Resolved) Renal insufficiency (Acute) CARLOS EDUARDO (acute kidney injury) (Resolved) Urinary tract infection (Resolved) The patient is a 64 year old M with multiple comorbidities as listed above and recurrent admission, last one in February 2019 for severe sepsis secondary to postoperative infection with ileus after laparotomy for small bowel obstruction secondary to volvulus, CARLOS EDUARDO and UTI. This time, patient was brought in to ER for acute shortness of breath, sudden onset. As per the ER physician, he also developed cough yesterday and vomiting today with shortness of breath. Patient got progressively short of breath which led to intubation. In ER, patient also found tachycardic. Blood pressure was low 101/68, tachypneic. Patient has a right IJ central venous catheter. Patient is not yet started on vasopressors. I saw the patient after he was intubated. I talked to patient's daughter who states patient was a normal baseline when she saw him yesterday. Chest x-ray independently reviewed and shows bilateral lower lobes alveolar pattern infiltrates. Discussed with cattle driver. EKG was done. First EKG shows sinus tachycardia at 130 bpm. Repeat EKG after an hour shows sinus tachycardia with ST segment changes, inferior, depression and anterior lateral leads. Dr. Liu was called. Patient also had CT abdomen pelvis done which shows mild degree of ascites, bilateral hydronephrosis, diffusely thickened urinary bladder wall. Is further being admitted in ICU. 1. SIRS with severe sepsis (sinus tachycardia, hypotension tachypnea, hypoxia, and lactic acidosis) acute hypoxic respiratory failure, possible secondary to bilateral pneumonia, exact etiology unclear Patient is started on broad-spectrum IV antibiotic vancomycin and Zosyn. Panculture done including respiratory panel. Severe sepsis protocol being followed. If patient drops blood pressure, will start vasopressor. Tip of right IJ is in proximal SVC. 2. Sinus tachycardia with ST abnormality; CAD Status post CABG/history of TIA; peripheral artery disease/Raynaud's syndrome: Troponin is elevated. 0.751. Contact Lens Blocker And Cutter Dr. Liu is been consulted. Patient had echo in May 2019 which reported as EF 53% right ventricle normal in size versus normal systolic function. It was technically difficult study. Normal LV size and systolic func tion. Anterior and inferolateral segments were hypokinetic. Cycle cardiac enzymes. Will leave the decision to repeat echo on electronic health records specialist. Aspirin and Plavix continued 3. Acute hypoxic respiratory failure with mixed acid-base abnormality and electrolyte abnormality: ABG shows 7. on 2 L of oxygen. K3.3, bicarb 13, anion gap 7. Overall suggestive of acute hypoxic respiratory failure with increased anion gap, with hypokalemia and compensated non-anion gap metabolic acidosis. Magnesium 1.5, replace potassium and magnesium. 4. CARLOS EDUARDO on baseline CKD stage 4. Previous BUN/creatinine 65/1.76 #2019. Current 36/2.18. Monitor intake and output, daily weight checkup. Start nephrology. I do not think patient needs Lasix now but if at all needed will give judiciously. March catheter, accurate urine output measurement for critical care. 5. COPD: Currently patient is intubated. As per the ER physician, patient was short of breath and cough but unclear whether COPD exacerbation. For now will monitor. 6 Recent small bowel obstruction with postoperative ileus secondary to volvulus status post laparotomy: During last admission, patient was transferred to [facility]. 7. Other comorbidities include hypertension, BPH, bladder mass, unstageable left buttock diabetes ulcer and unstageable right buttock decubitus ulcer, diffuse muscle atrophy with severe protein calorie malnutrition: We will consult wound care nurse. Consult veneer stacker. Multiple comorbidities complicates the present care and expect difficult and delay recovery DVT prophylaxis Subcutaneous Lovenox Advanced care planning/CODE STATUS: Patient's ex- is the power of aluminum pool installer for health. Patient ex- wanted full code. Patient want artificial life support including intubation, tube feed, ventilator and/chest compression, central venous catheter, vasopressor and DC shock if needed. Full Code. Total time spent in [id number] encounter in discussion of advanced directive 16 minutes. Microbiology Past 72 Hours 07/03/19 09:47 Mucosa - Nose Influenza Types A,B Direct FA (LINA) - Final Laboratory Results 07/03/19 09:00: WBC 6.9, RBC 3.77 L, Hgb 11.9 L, Hct 34.8 L, MCV 92.3, MCH 31.6, MCHC 34.2, RDW Std Deviation 44.3 H, RDW Coeff of [place] 13.2, Plt Count 398, MPV 9.2, Immature Gran % (Auto) 0.300, Neut % (Auto) 93.1 H, Lymph % (Auto) 3.6 L, [place] % (Auto) 2.3, Eos % (Auto) 0.4, Baso % (Auto) 0.3, Absolute Neuts (auto) 6.4, Absolute Lymphs (auto) 0.25 L, Nucleated RBC % 0, Differential Comment SCANNED 07/03/19 09:00: PT 13.7, INR 1.1, APTT 29.5 07/03/19 09:00: Sodium 140, Potassium 3.3 L, Chloride 120 H, Carbon Dioxide 13.0 L, Anion Gap 7, BUN 36 H, Creatinine 2.18 H, Estim Creat Clear Calc 28.31, Est GFR (MDRD) Af Amer 40 L, Est GFR (MDRD) Non-Af 33 L, BUN/Creatinine Ratio 16.5, Glucose 91, Calcium 9.2, Magnesium 1.5 L, Total Bilirubin 0.20, AST 23, ALT 20, Alkaline Phosphatase 232 H, Troponin I 0.751 H*, Total Protein 6.8, Albumin 2.3 L, Globulin 4.5 H, Albumin/Globulin Ratio 0.5 L 07/03/19 09:00: B-Natriuretic Peptide 497.6 H 07/03/19 09:00: Lactic Acid 1.5 07/03/19 09:26: Lactic Acid 2.2 H* 07/03/19 09:33: Specimen Type ART, Sample Site R Radial, pH 7.36, Bicarbonate Actual 8.7 L, POC Total CO2 9, Base Excess -17 L, O2 Saturation 97, ABG pCO2 15.4 L*, ABG pO2 94, Khang Test POS, O2 Delivery Device Nasal Can, Liter Flow 2.0, Blood Gas Notified Whom ED , Blood Gas Notified Time 927 07/03/19 10:30: Urine Color Brown, Urine Clarity Turbid, Urine pH 6.5, Ur Specific Fenton 1.025, Urine Protein 100 H, Urine Glucose (UA) Normal, Urine Ketones 5 H, Urine Occult Blood 250 H, Urine Nitrite Negative, Urine Bilirubin Negative, Urine Urobilinogen Normal, Ur Leukocyte Esterase 500 H, Urine RBC 0-5 SEEN, Urine WBC >100 SEEN, Ur Squamous Epith Cells 0 SEEN, Urine Bacteria 1+, Urine Mucus 0 SEEN Clinical Impression(s) from Imaging Studies Chest X-Ray 07/03/19 09:58 IMPRESSION: Mild degree of increased markings at the right lung base. Radiographic follow-up is recommended. Abdomen/Pelvis CT 07/03/19 10:00 IMPRESSION: Mild degree of ascites. Diffusely thickened urinary bladder wall. Extensive vascular calcifications as described. Bilateral hydronephrosis. This is unchanged. Mildly distended gallbladder with the findings suggestive of tiny gallstones or sludge within the gallbladder lumen. Chest X-Ray 07/03/19 12:02 IMPRESSION: Interval increase in diffuse pulmonary opacities more prominently at the right lower lobe as compared to a radiograph from several hours prior. This may represent worsening pulmonary edema versus acute infectious process as clinically indicated. Question small right upper lobe pulmonary nodule which may be further assessed with chest CT. Chest X-Ray 07/03/19 12:33 IMPRESSION: The tip of the endotracheal tube is at 5.8 cm proximal to the concepcion. The tip of the orogastric tube is at the GE junction. The remainder of the examination is unchanged. Inpatient E&M: 48921 Init Hosp L3 Procedures: 06057 Advncd Care Plan 30 Min
--- NOTE | 2019-07-03 15:21 | ECHOD_ITS ---
Reason For Study: DYSPNEA Procedure This was a 2D Doppler, Color Flow transthoracic echocardiogram. The study was technically difficult. Exam performed portable in ICU/CCU. Left Ventricle Mildly dilated left ventricle. Severe segmental systolic dysfunction (see wall motion). The estimated ejection fraction is 20 %. Diastolic function is indeterminate. Anterio-Basal: Hypokinetic. Lateral-Basal: Severely Hypokinetic. Posterior-Basal: Severely hypokinetic. Infero- Basal: Hypokinetic. Basal inferoseptal: Severely Hypokinetic. Basal anteroseptal: Severely Hypokinetic. Mid-Anterior : Akinetic. Mid-Lateral : Akinetic. Mid-Posterior: Severely Hypokinetic. Mid-Inferior: Akinetic. Mid-inferoseptal : Akinetic. Mid-anteroseptal : Akinetic. [place] : Akinetic. Right Ventricle Normal RV size. Normal systolic function. Atria Normal left atrium. Normal right atrium. No doppler evidence for ASD. Mitral Valve There is no mitral annular calcification. Mild diffuse mitral valve thickening. Moderate (2+) mitral valve insufficiency. Tricuspid Valve Normal tricuspid valve. Moderate (2+) tricuspid valve insufficiency. Right ventricular systolic pressure estimated to be 48 mmHg. Aortic Valve Trisinus/trileaflet aortic valve. Normal aortic valve. Pulmonic Valve The pulmonic valve is not well visualized. Trivial pulmonic valve insufficiency. Great Vessels Normal sized aortic root. Pericardium/Pleural No pericardial effusion. Echo lucency compatible with a pleural effusion. MMode/2D Measurements & Calculations LVIDd: 5.9 cm IVSd: 0.64 cm Ao root diam: 3.3 cm LVIDs: 5.4 cm LVPWd: 0.75 cm RVDd: 3.5 cm FS: 7.5 % LAV(MOD-bp): 40.2 ml LVAd ap4: 37.0 cm2 SV(MOD-sp4): 32.4 ml LAV(MOD-bp) Indexed: 23.3 ml/m2 EDV(MOD-sp4): 124.2 ml LAV(MOD-sp2): 41.1 ml EDV(sp4-el): 128.8 ml LAV(MOD-sp4): 36.3 ml LVAs ap4: 29.8 cm2 ESV(MOD-sp4): 91.7 ml ESV(sp4-el): 94.1 ml EF(MOD-sp4): 26.1 % EF(sp4-el): 27.0 % SV(sp4-el): 34.7 ml LA A4 area: 16.1 cm2 LA dimension(2D): 4.0 cm RA A4 area: 14.9 cm2 Time Measurements MV dec time: 0.22 sec Doppler Measurements & Calculations MV E max rogelio: 81.5 cm/sec Lat Peak E' Rogelio: 6.8 cm/sec Med Peak E' Rogelio: 9.4 cm/sec MV A max rogelio: 33.7 cm/sec E/E' lat: 11.9 E/E' med: 8.6 MV E/A: 2.4 Ao V2 max: 113.5 cm/sec LV V1 max: 91.4 cm/sec PA V2 max: 91.1 cm/sec Ao max P.2 mmHg LV V1 max P.4 mmHg PI end-d rogelio: 193.5 cm/sec TR max rogelio: 313.1 cm/sec TR max P.6 mmHg Interpretation Summary The study was technically difficult. Mildly dilated left ventricle. Severe segmental systolic dysfunction (see wall motion). The estimated ejection fraction is 20 %. Mild diffuse mitral valve thickening. Moderate (2+) mitral valve insufficiency. Moderate (2+) tricuspid valve insufficiency. Trivial pulmonic valve insufficiency. Echo lucency compatible with a pleural effusion. Right ventricular systolic pressure estimated to be 48 mmHg. Diastolic function is indeterminate. Ordering Physician: Rod Moscoso Referring Physician: TYLER HUNTER Performed By: Alexus Fish, GLORIACS, RVT
[2019-07-03 15:42] LABS: Phosphorus 3.4 mg/dL (2.5-4.9)
[2019-07-03 15:50] LABS: Urine Chloride 71 mmol/L (Not Establ.); Urine Sodium 74 mmol/L (Not Establ.)
[2019-07-03 16:00] LABS: ALB/GLOB Ratio 0.5 RATIO (0.9-2.4); AST(SGOT) 37 U/L (15-37); Alanine Aminotransfer ALT/SGPT 16 U/L (16-61); Albumin, Serum 1.7 g/dL (3.2-5.0); Alkaline Phosphatase 151 U/L (45-117); Anion Gap 6 (5-15); BUN 34 mg/dL (7-18); BUN/Creat Ratio 14.8 RATIO (10-20); Calcium,Total 7.7 mg/dL (8.5-10.1); Chloride 124 mmol/L (98-107); Creatinine, Serum 2.29 mg/dL (0.70-1.30); EST Glomerular Filtration Rate 31 mL/min (>60); Est Glom Filt Rate - Afr Amer 37 mL/min (>60); Globulin 3.5 g/dL (2.2-4.2); Glucose 87 mg/dL (74-106); Potassium 3.1 mmol/L (3.5-5.1); Protein, Total 5.2 g/dL (6.4-8.2); Sodium Level 144 mmol/L (136-145)
[2019-07-03 16:00] LABS: Protein, Urine (Random) 1158.8 mg/dL (<11.9); Protein:Creat Ratio 21539 mg/g CRE (0-200)
--- NOTE | 2019-07-03 16:00 | PCM.RX.CS ---
Consult Pharmacy has been consulted to manage selected antiobiotic: Vancomycin Type of Consult: New start Prior Doses of Antibiotics Received/Current Regimen: Medications Vancomycin HCl 1,500 mg/ (Sodium Chloride) 530 mls @ 250 mls/hr IV X1 ONE Stop: 07/03/19 15:32 Last Admin: 07/03/19 14:00 Dose: 250 mls/hr Documented by: Labs: Sodium 144 mmol/L (136-145) 07/03/19 15:20 Potassium 3.1 mmol/L (3.5-5.1) L 07/03/19 15:20 Chloride 124 mmol/L (98-107) H 07/03/19 15:20 Carbon Dioxide 14.0 mmol/L (21.0-32.0) L 07/03/19 15:20 Anion Gap 6 (5-15) 07/03/19 15:20 BUN 34 mg/dL (7-18) H 07/03/19 15:20 Creatinine 2.29 mg/dL (0.70-1.30) H 07/03/19 15:20 Est GFR (MDRD) Af Amer 37 mL/min (>60) L 07/03/19 15:20 Est GFR (MDRD) Non-Af 31 mL/min (>60) L 07/03/19 15:20 BUN/Creatinine Ratio 14.8 RATIO (10-20) 07/03/19 15:20 Glucose 87 mg/dL (74-106) 07/03/19 15:20 Microbiology: Microbiology 07/03/19 10:30 Urine Catheter - Catheter Legionella Antigen - Final 07/03/19 10:30 Urine Catheter - Catheter Streptococcus pneumoniae Antigen (M - Final 07/03/19 09:47 Mucosa - Nose Influenza Types A,B Direct FA (LINA) - Final Weight used for dosin kg Estimated Creatinine Clearance: 28 mL/min Goal Trough: 15-20 mcg/mL Pharmacy Plan for Drug Dosing: Vancomycin 1500mg given in ED x1. 500mg IV q24h with trough prior to 3rd dose per policy. Pharmacy Service will continue to monitor and adjust dosing as required. Follow-Up Labs: Trough Vancomycin - 07/04 @ 1330
[2019-07-03] MEDS: Enoxaparin 30 MG/0.3 ML Syringe SC (16:34)
[2019-07-03 16:39] LABS: M R Staph aureus DNA By PCR Negative (Negative); Probe Check PASS; Staph aureus DNA By PCR NEGATIVE (Negative)
[2019-07-03] MEDS: 0.9% Saline Lock 10 ML Syringe IV ×3 (16:39→22:53)
[2019-07-03 16:40] LABS: Base Excess -18 mmol/L (-2 to +2); Bicarbonate 10.9 mmol/L (22-26); Blood Gas Specimen Type ART; FI02 50; Mode A-C; O2 Delivery Device Vent; PEEP 5; PO2 78 mmHG (75-100); RR 12; SITE R Brachial; SO2 91 % (95-99); Time Given 1629; Total Carbon Dioxide 12 mmol/L; Vt 450; pCO2 30.7 mmHg (35-45); pH 7.16 (7.35-7.45)
--- NOTE | 2019-07-03 17:08 | PCM.CONS.C ---
Problem List (1) Acute hypoxemic respiratory failure Status: Acute (2) S/P CABG x 4 Status: Chronic Comment: HOFFMAN to LAD, SVG to 1st Diagonal, SVG to 1st OM, SVG to Right PDA, Done @ [facility]. (3) Atherosclerotic heart disease of [place] coronary artery without angina pectoris Status: Chronic (4) History of non-ST elevation myocardial infarction (NSTEMI) Status: Chronic (5) PAD (peripheral artery disease) Status: Chronic (6) HTN (hypertension) Status: Chronic (7) HLD (hyperlipidemia) Status: Chronic (8) CARLOS EDUARDO (acute kidney injury) Status: Resolved Reason for Consult Date of Consultation: 07/03/19 Reason for Consultation: Non-STEMI, coronary disease status post CABG, hypertension, hypercholesterolemia, chronic renal insufficiency, acute sepsis, acute respiratory failure History of Present Illness: GRACY PONCE, is a 64 M who presented to the emergency room today with abdominal pain, mental status changes, diffuse weakness, acute on chronic renal insufficiency, sinus tachycardia progressing to diffuse inferior lateral ST segment depression with subtle ST elevation in lead aVR. The patient's condition acutely deteriorated requiring emergent intubation and subsequent admission to the ICU. As the patient complained of abdominal pain he underwent GI evaluation with a CT scan which demonstrated thickening of his gallbladder wall, and possible gallstones. In addition he had a March placed which demonstrated dark urine, possibly suggesting a urinary tract infection as well. Patient was treated with IV antibiotics with vancomycin and Zosyn, placed on a ventilator, and required levo fed for blood pressure support on initial admission. Currently the patient is intubated, sedated, unresponsive, much of the history was obtained from the patient's daughter. His daughter states that he was doing well up until late yesterday when he developed decreased energy, progressing rapidly to fevers, chills, abdominal pain so bad that he could not tolerate having a cat sit on his abdomen, no nausea, vomiting, or chest pain were described. Since the patient has been intubated, repeat EKG demonstrates resolution of his inferior lateral ST segment depression in aVR ST elevation. I reviewed his cardiac catheterization and graft angiography from 2018 and the results are as below. He is a former patient of Dr. Hallman and has a history of hypertension, hyperlipidemia, obstructive sleep apnea who does not use CPAP, Raynaud's disease, TIA, peripheral arterial disease, and coronary disease status post bypass surgery x4 in 2008. At that time he suffered an acute myocardial infarction. The patient previously had presented to Dr. Enrique's office on 06/13/17 with decreased exercise tolerance and chronic chest pain syndrome requiring periodic nitroglycerin. On 03/22/18 he was admitted with possible syncope, the events of which the patient did not recall, non-STEMI with a peak troponin of 1.22, with no chest pain, and underwent repeat catheterization by myself. At that time he was found to have an EF around 65-70%, mild luminal irregularities of his left main of about 30%, occluded LAD, 50% proximal circumflex, and patent HOFFMAN to the LAD, patent saphenous vein graft to first diagonal, patent saphenous vein graft to OM #1 with a distal 50% lesion, and patent saphenous vein graft to the R PDA with a distal 50% stenosis. I was unsure whether the patient's symptoms were related to his vein grafts or whether they were narrowed due to traversing his pericardial space. No PCI was performed at that time the patient had undergone a stress test on 07/07/17 which was a non-walking nuclear stress test which demonstrated possible ischemia of the distal anterior territory. Patient previously presented in February 2019 with what appears to be SVT to the [facility] and was admitted and evaluated. He underwent an echocardiogram on 02/12/2019 which showed an EF of 60%, normal RV size, no wall motion abnormalities noted. In addition he has been subsequently admitted in January 2019 for small bowel obstruction with exploratory laparotomy and lysis of adhesions, as well as in March 2019 with severe protein calorie malnutrition at the [facility]. During both of those admission, he was quite sick, intubated on both admissions. He is currently residing in a longterm, and is recovering. He still has a March catheter in but is post to get that out after a CAT scan is performed on June 11, 2019. Patient's initial troponin was 0.75, and now is increased to 7.0. Third troponin is pending. Repeat echocardiogram done on admission today 07/03/2019 shows the following: The study was technically difficult. Mildly dilated left ventricle. Severe segmental systolic dysfunction (see wall motion). The estimated ejection fraction is 20 %. Mild diffuse mitral valve thickening. Moderate (2+) mitral valve insufficiency. Moderate (2+) tricuspid valve insufficiency. Trivial pulmonic valve insufficiency. Echo lucency compatible with a pleural effusion. Right ventricular systolic pressure estimated to be 48 mmHg. Diastolic function is indeterminate. [] Past Medical History Allergies/Adverse Reactions: Allergies No Known Allergies Allergy (Verified 03/01/19 00:06) Home Medications: Ambulatory Orders Medication Instructions Recorded Albuterol Inhaler [Ventolin Hfa] 2 puff INHALATION Q4H PRN PRN 07/12/17 Fluticasone/Vilanterol [Breo 1 ea IH DAILY 07/12/17 Ellipta 200-25 Mcg INH] Gabapentin [Neurontin] 600 mg PO BID 07/12/17 Omeprazole [Prilosec] 20 mg PO DAILY 07/12/17 Aspirin [Aspir-Low] 81 mg PO DAILY 09/08/18 Fluoxetine HCl 20 mg PO DAILY 09/08/18 Metoprolol Tartrate [Lopressor 25 mg PO BID 09/08/18 (beta sascha)] Ascorbic Acid [Vitamin C] 500 mg PO DAILY@0800 03/01/19 clopidogrel 75 mg tablet 75 mg PO DAILY #90 tab 06/25/19 isosorbide mononitrate 30 mg 45 mg PO DAILY #90 tab 06/25/19 tablet,extended release 24 hr nitroglycerin 0.4 mg sublingual 0.4 mg SUBLINGUAL Q5M PRN #25 tab 06/25/19 tablet Atorvastatin Calcium [Lipitor] 40 mg PO QHS 07/03/19 Folic Acid 1 mg PO DAILY@0800 07/03/19 Gabapentin [Neurontin] 800 mg PO QHS 07/03/19 Multivitamin with Minerals 1 tab PO DAILY 07/03/19 [Multivitamins with Minerals] NIFEdipine [Procardia XL] 90 mg PO DAILY 07/03/19 Pantoprazole Sodium 20 mg PO DAILY 07/03/19 Thiamine Hydrochloride [Vitamin B1] 100 mg PO DAILYCM 07/03/19 Past Medical History (Chronic Problems): Chronic Problems (Last Reviewed 05/31/19 @ 14:31 by Eboni Jacinto) S/P CABG x 4 (Chronic ~2008) HOFFMAN to LAD, SVG to 1st Diagonal, SVG to 1st OM, SVG to Right PDA, Done @ [facility]. Atherosclerotic heart disease of [place] coronary artery without angina pectoris (Chronic) History of non-ST elevation myocardial infarction (NSTEMI) (Chronic 03/22/18) History of TIA (transient ischemic attack) (Chronic) PAD (peripheral artery disease) (Chronic) HTN (hypertension) (Chronic) HLD (hyperlipidemia) (Chronic) COPD (chronic obstructive pulmonary disease) (Chronic) Obstructive sleep apnea (Chronic) Raynaud's syndrome (Chronic) Surgical History: appendectomy, coronary bypass surgery, tonsillectomy, - - appendix out, cabg , tonsils out, eye surgery, heart stent before surgery., Bowel obstruction - *Family History Maternal Family History: Family History (Last Reviewed 05/31/19 @ 14:31 by Eboni Jacinto) Father Cancer Mother Murder Brother Colon cancer Brother Diabetes Brother Diabetes Brother Diabetes Sister Diabetes History Items: - - Patient reports that her mother was murdered Paternal Family History: Family History (Last Reviewed 05/31/19 @ 14:31 by Eboni Jacinto) Father Cancer Mother Murder Brother Colon cancer Brother Diabetes Brother Diabetes Brother Diabetes Sister Diabetes History Items: Cancer, - - lung cancer Sibling Family History: Family History (Last Reviewed 05/31/19 @ 14:31 by Eboni Jacinto) Father Cancer Mother Murder Brother Colon cancer Brother Diabetes Brother Diabetes Brother Diabetes Sister Diabetes History Items: Diabetes Smoking Status: Current every day smoker Review of Systems - Review of Systems General: Denies: Fever, Night Sweats, Fatigue Cardiovascular: Denies: Chest Discomfort, Shortness of Breath, Orthopnea, PND, Peripheral Edema, Palpitations, Lightheadedness, Dizziness, Near Syncope, Syncope Respiratory: Denies: Cough, Sputum Production, Hemoptysis Gastrointestinal: Reports: Epigastric Discomfort, Abdominal Discomfort. Denies: Hematemesis, Hematochezia, Melena Genitourinary: Denies: Dysuria, Hematuria Skin: Denies: Rash Subjectve: Patient intubated, sedated, on Levophed drip, hypotensive currently. Objective: Vital Signs Temp Pulse Resp BP Pulse Ox 98.7 F 130 H 18 75/58 L 94 07/03/19 13:50 07/03/19 17:00 07/03/19 17:00 07/03/19 17:00 07/03/19 17:00 Oxygen Flow Rate (L/min) 2 Oxygen Delivery Method Mechanical Ventilator Weight: 126 lb 8.725 oz Body Mass Index (BMI) 17.6 Finger Stick Blood Glucose 88 Intake and Output for Last 24 Hours 07/01/19 07/02/19 07/03/19 23:59 23:59 23:59 Intake Total 2274.98 / 2274.98 Balance 2274.98 / 2274.98 General: Awake, Alert, Oriented x 3 HEENT: PERRL, EOMI, Sclera Non Icteric Neck: Supple, Good ROM, No Lymph Node Enlargement Lungs: Diminished Bud Bases Cardiovascular: Regular Rhythm, Normal S1, Normal S2, No Murmurs, No Rubs, No Gallops Vascular: No Carotid Bruits, Normal Femoral Pulses, Normal Radial Pulses, Normal Dorsalis Pedal Pulse, Normal Posterior Tibial Pulses Abdomen: Bowel Sounds Present, Soft, Non Tender, No HSM, No Organomegaly Extremities: No Cyanosis, No Clubbing, No edema Neurological: No Focal Motor or Sensory Deficit 07/03/19 09:00: WBC 6.9, RBC 3.77 L, Hgb 11.9 L, Hct 34.8 L, MCV 92.3, MCH 31.6, MCHC 34.2, Plt Count 398, MPV 9.2, Immature Gran % (Auto) 0.300, Neut % (Auto) 93.1 H, Lymph % (Auto) 3.6 L, Bureau % (Auto) 2.3, Eos % (Auto) 0.4, Baso % (Auto) 0.3, Absolute Neuts (auto) 6.4, Nucleated RBC % 0 07/03/19 09:00: PT 13.7, INR 1.1, APTT 29.5 07/03/19 09:00: Sodium 140, Potassium 3.3 L, Chloride 120 H, Carbon Dioxide 13.0 L, Anion Gap 7, BUN 36 H, Creatinine 2.18 H, Est GFR (MDRD) Af Amer 40 L, Est GFR (MDRD) Non-Af 33 L, BUN/Creatinine Ratio 16.5, Glucose 91, Calcium 9.2, Magnesium 1.5 L, Total Bilirubin 0.20, Troponin I 0.751 H* 07/03/19 09:00: B-Natriuretic Peptide 497.6 H 07/03/19 09:00: Lactic Acid 1.5 07/03/19 09:26: Lactic Acid 2.2 H* 07/03/19 09:33: pH 7.36, Bicarbonate Actual 8.7 L, POC Total CO2 9, Base Excess -17 L, O2 Saturation 97, ABG pCO2 15.4 L*, ABG pO2 94, Khang Test POS 07/03/19 10:30: Urine Color Brown, Urine Clarity Turbid, Urine pH 6.5, Ur Specific [place] 1.025, Urine Protein 100 H, Urine Glucose (UA) Normal, Urine Ketones 5 H, Urine Occult Blood 250 H, Urine Nitrite Negative, Urine Bilirubin Negative, Urine Urobilinogen Normal, Ur Leukocyte Esterase 500 H, Urine RBC 0-5 SEEN, Urine WBC >100 SEEN 07/03/19 15:20: Sodium 144, Potassium 3.1 L, Chloride 124 H, Carbon Dioxide 14.0 L, Anion Gap 6, BUN 34 H, Creatinine 2.29 H, Est GFR (MDRD) Af Amer 37 L, Est GFR (MDRD) Non-Af 31 L, BUN/Creatinine Ratio 14.8, Glucose 87, Calcium 7.7 L, Total Bilirubin 0.30, Troponin I 7.010 H* 07/03/19 15:20: Phosphorus 3.4 07/03/19 16:30: pH 7.16 L*, Bicarbonate Actual 10.9 L, POC Total CO2 12, Base Excess -18 L, O2 Saturation 91 L, ABG pCO2 30.7 L, ABG pO2 78, Khang Test NA Rhythm: EKG: ECHO:The study was technically difficult. Mildly dilated left ventricle. Severe segmental systolic dysfunction (see wall motion). The estimated ejection fraction is 20 %. Mild diffuse mitral valve thickening. Moderate (2+) mitral valve insufficiency. Moderate (2+) tricuspid valve insufficiency. Trivial pulmonic valve insufficiency. Echo lucency compatible with a pleural effusion. Right ventricular systolic pressure estimated to be 48 mmHg. Diastolic function is indeterminate. Stress Test: Cardiac Cath: PCI: CT Surgery: Holter monitor: EPS: PPM: CXR: Chest CT Scan: Assessment/Plan 1. Non-STEMI: Patient presents with acute respiratory distress superimposed on severe sepsis, possibly due to cholecystitis and/or urinary tract infection. Patient's condition deteriorated rapidly over the last few hours prior to admission, requiring emergent intubation, ventilator support, and blood pressure support with Levophed. Thankfully his EKG has normalized subsequent to his intubation and relative stabilization. I reviewed the patient's catheterization films from 2018, and I would not recommend repeat catheterization at this time given the patient's condition, acute on chronic renal insufficiency, and due to the complete resolution of his ST segment changes after intubation. At this point I would recommend continuing baby aspirin 81 mg p.o. daily, Connor 75 mg a day Lovenox adjusted for renal insufficiency to maintain anticoagulation. I would hold off on antihypertensive therapy until least 24 hours after the patient has ceased requiring IV Levophed therapy. Would recommend holding statin based medications to avoid liver insult. 2. LV dysfunction: The patient has severe global LV dysfunction most likely result of his severe sepsis, which hopefully will resolve once his sepsis has resolved. Would recommend repeat echocardiogram in 3 to 4 weeks time to determine if his LV function has improved. Given his overt sepsis, I would not recommend repeat catheterization or intra-aortic balloon pump therapy at this time. Would recommend cautious use of IV fluids as this would most likely third space into the patient's pleural space, abdominal space and upper and lower extremities in the form of edema. I would not recommend OK inhibitor or ARB's at this time given his acute on chronic renal insufficiency and hypotension requiring Levophed support. 3. Patient is is in grave condition at this time which I communicated to the patient's family member. He is currently full code. I believe we can get a hold of his infectious process, he may benefit from surgical correction of his suppose a cholecystitis as a nidus for his sepsis. I would also recommend looking for other pathogens with respiratory panel, and/or CoVID 19 as deemed indicated by barrel endshaker adjuster service. 4. Malnutrition: The patient had a recent small bowel obstruction in March 2019 and has had subsequent protein malnutrition which will make recovery from this episode somewhat problematic and decreasing the risk of success. Patient may require TPN in the short-term, followed by hyperalimentation going forward. 5. Discussed the patient's condition and options as well as possible prognosis with the patient's family member who was at the bedside and provided much of his history for today's exam. Very guarded prognosis at this time. I believe patient is too sick for transportation to tertiary care facility. 6. Thank you very much for the opportunity to participate in the cardiac care of your patient. Consultation time took place between 430 and 5:20 PM. Inpatient E&M: 12113 Init Hosp L3
[2019-07-03 17:40] LABS: Bedside Glucose 82 mg/dL (70-110)
--- NOTE | 2019-07-03 17:45 | CPS ---
critical ABG results read to Dr. Moscoso.
[2019-07-03] MEDS: Ipratropium 0.5 MG/2.5 ML SOLUTION INHALATION ×2 (20:00→23:10)
--- NOTE | 2019-07-03 21:52 | PCM.HOSP.N ---
Hospitalist Note Patient with elevated sedation scores, propofol held with no improvement x 1 hour, fentanyl just held. If ongoing lack of any response would obtain CT head.
[2019-07-03] MEDS: Dextrose 50%-Water 25 GM/50 ML DISP.SYRIN IV (22:51)
[2019-07-03] MEDS: Chlorhexidine 15 ML PO (22:54)
--- NOTE | 2019-07-03 23:20 | RAD_ITS ---
STUDY: X-RAY CHEST REASON FOR EXAM: Male, 64 years old. NG/OG PLACEMENT TECHNIQUE: Single AP portable view of the chest. COMPARISON: Same day, 1:25 PM. FINDINGS: Endotracheal tube terminates 6.5 cm above the concepcion. Nasogastric tube terminates in the upper stomach, with the sidehole at the level of the esophagogastric junction. Stable right IJ line terminating in the mid SVC. Improving aeration of the right lower lung. Significantly improved atelectasis or infiltrate since previous study. RAD/Chest 1 View IMPRESSION: Lines and tubes in satisfactory positions. Improved right basilar infiltrate since earlier today. Electronically Signed: Tony Ewing MD at 23:51 EDT , Service support ,
[2019-07-04] VITALS (43 sets, daily range): BP systolic 76–116; BP diastolic 58–81; PULSE 113–176; RESP 12–33; TEMP 36.9–38.6; O2SAT 96–100; BMI 17.8
[2019-07-04 01:36] LABS: Bedside Glucose 69 mg/dL (70-110)
[2019-07-04 01:36] LABS: Bedside Glucose 139 mg/dL (70-110)
[2019-07-04 01:51] LABS: Bedside Glucose 91 mg/dL (70-110)
[2019-07-04] MEDS: Ipratropium 0.5 MG/2.5 ML SOLUTION INHALATION ×4 (03:23→15:39)
[2019-07-04 04:56] LABS: Hematocrit 28.3 % (40-54); Hemoglobin 9.2 g/dL (13.0-16.5); Mean Corp Hgb Conc 32.5 g/dL (32-36); Mean Corpuscular Hgb 31.8 pg (27.0-32.0); Mean Corpuscular Volume 97.9 fL (80-94); Mean Platelet Vol. 9.4 fl (6.2-12.0); POSITIVE COUNT YES; POSITIVE DIFFERENTIAL YES; POSITIVE MORPHOLOGY YES; Platelet Count 365 K/mm3 (150-450); RBC Distribution Width CV 14.2 % (11.6-14.6); Red Blood Count 2.89 M/mm3 (4.6-6.2)
[2019-07-04 04:58] LABS: Differential Indicated MANUAL DIFF; White Blood Count 32.8 K/mm3 (4.4-11.0)
[2019-07-04 05:17] LABS: Lymphocyte 3 % (19-41); Monocyte 8 % (0-10); Neutrophil-Band 8 % (0-5); Neutrophil-Segmented 81 % (47-70); Total Cells Counted 100 (MANUAL DIFF)
[2019-07-04 05:18] LABS: Absolute Lymphocyte Count 0.98 X10^3/uL (0.83-4.51); Absolute Neutrophil Count 29.2 X10^3/uL (2.0-7.7); Anisocytosis RARE; Hypochromasia RARE; Lymphocyte # 0.98 X10^3/ul (4.0); Microcytosis RARE; Monocyte# 2.62 X10^3/uL; Neutrophil # 29.19 X10^3/uL (2.7-7.7); Platelet Estimate ADEQUATE (ADEQ)
[2019-07-04 05:24] LABS: Phosphorus 6.4 mg/dL (2.5-4.9)
[2019-07-04 05:31] LABS: Magnesium 2.3 mg/dL (1.6-2.6); Thyroid Stim Hormone (TSH) 0.41 uIU/mL (0.358-3.74)
[2019-07-04 06:21] LABS: Bedside Glucose 85 mg/dL (70-110)
[2019-07-04 06:21] LABS: Bedside Glucose 90 mg/dL (70-110)
--- NOTE | 2019-07-04 06:30 | PCM.PN.INT ---
Subjective: The patient was seen and examined at the bedside this morning. Events from the last 24 hours have been reviewed. The patient is currently afebrile, but remains tachycardic and somewhat tachypneic. FiO2 requirement is currently 40% on assist control mode of mechanical ventilation. The patient did, for a period of time, have to be maintained on vasopressor support yesterday to maintain hemodynamic stability. His Levophed was able to be weaned off completely around midnight. White count is significantly elevated this morning to 33,000. The patient remains on broad-spectrum antimicrobial coverage with vancomycin and Zosyn. In addition, he has been maintained on scheduled Atrovent, given his issues with tachycardia along with IV steroids. He is currently documented to be overall net +2.4 L for the hospital admission. Last troponin was noted to be 11.0. Objective: The patient's most recent lab work, culture data and imaging studies have all been personally reviewed. Surface echocardiogram revealed a mildly dilated LV with severe segmental systolic dysfunction and an ejection fraction of 20%. Right ventricular systolic pressure was estimated to be [address] abdomen/pelvis revealed bilateral hydronephrosis with a mildly distended gallbladder and findings suggestive of tiny gallstones or sludge within the gallbladder lumen. Strep and urine Legionella antigens were negative. Respiratory viral panel is pending. Blood, urine and sputum cultures are pending. General: - - Remains intubated and mechanically ventilated. HEENT: Atraumatic, PERRLA, Normocephalic Oral: No Gingival or Mucosal Lesions/ Ulcerations, - - Endotracheal and OG tubes remain in place Neck: Supple, No Nodes, Trachea Midline, - - Right IJ central venous catheter in place. Lungs: No rhonchi, No wheeze, No rales, Diminished Cardiovascular: Normal S1, Normal S2, No murmurs, Tachycardic Abdomen: Bowel Sounds Present, Soft, Non Tender Extremities: No clubbing, No cyanosis Skin: No breakdown Musculoskeletal: No Tenderness to Palpation of Joints or Extremities, Cachexia, Muscle Wasting Lymphatic: No Cervical, Supraclavicular, or Inguinal Adenopathy Neurological: - - All sedation is currently on hold. The patient is not currently responsive to verbal or tactile stimulation. Vital Signs Temp Pulse Resp BP Pulse Ox 98.7 F 130 H 21 H 92/70 99 07/04/19 00:00 07/04/19 06:00 07/04/19 06:00 07/04/19 06:00 07/04/19 06:00 Oxygen Flow Rate (L/min) 2 Oxygen Delivery Method Mechanical Ventilator Weight: 127 lb 13.89 oz Body Mass Index (BMI) 17.6 Finger Stick Blood Glucose 88 Intake and Output for Last 24 Hours 07/02/19 07/03/19 07/04/19 23:59 23:59 23:59 Intake Total 3278.90 / 3293.07 50.00 / 50.00 Output Total 100 / 500 875 / 875 Balance 3178.90 / 2793.07 -825.00 / -825.00 Labs (Last 48 Hours) 07/03/19 07/03/19 07/03/19 09:00 09:00 09:00 WBC 6.9 RBC 3.77 L Hgb 11.9 L Hct 34.8 L MCV 92.3 MCH 31.6 MCHC 34.2 RDW Std Deviation 44.3 H RDW Coeff of [place] 13.2 Plt Count 398 MPV 9.2 Immature Gran % (Auto) 0.300 Neut % (Auto) 93.1 H Lymph % (Auto) 3.6 L [place] % (Auto) 2.3 Eos % (Auto) 0.4 Baso % (Auto) 0.3 Absolute Neuts (auto) 6.4 Absolute Lymphs (auto) 0.25 L Total Counted Neutrophils % (Manual) Band Neutrophils % Lymphocytes % (Manual) Monocytes % (Manual) Nucleated RBC % 0 Differential Comment SCANNED Diff Path Review Platelet Estimate Hypochromasia Anisocytosis Microcytosis PT 13.7 INR 1.1 APTT 29.5 Specimen Type Sample Site pH Bicarbonate Actual POC Total CO2 Base Excess O2 Saturation O2 % ABG pCO2 ABG pO2 Khang Test Respiration Rate O2 Delivery Device Liter Flow Minute Volume Vent Mode Tidal Volume POC PEEP Blood Gas Notified Whom Blood Gas Notified Time Sodium 140 Potassium 3.3 L Chloride 120 H Carbon Dioxide 13.0 L Anion Gap 7 BUN 36 H Creatinine 2.18 H Estim Creat Clear Calc 28.31 Est GFR (MDRD) Af Amer 40 L Est GFR (MDRD) Non-Af 33 L BUN/Creatinine Ratio 16.5 Glucose 91 Lactic Acid Calcium 9.2 Phosphorus Magnesium 1.5 L Total Bilirubin 0.20 AST 23 ALT 20 Alkaline Phosphatase 232 H Troponin I 0.751 H* B-Natriuretic Peptide Total Protein 6.8 Albumin 2.3 L Globulin 4.5 H Albumin/Globulin Ratio 0.5 L TSH Urine Color Urine Clarity Urine pH Ur Specific [place] Urine Protein Urine Glucose (UA) Urine Ketones Urine Occult Blood Urine Nitrite Urine Bilirubin Urine Urobilinogen Ur Leukocyte Esterase Urine RBC Urine WBC Ur Squamous Epith Cells Urine Bacteria Urine Mucus U Random Total Protein Ur Random Sodium Urine Creatinine Protein/Creatinin Ratio Urine Potassium Urine Chloride S.aureus Protein A PCR MRSA (PCR) POC Glucose 07/03/19 07/03/19 07/03/19 09:00 09:26 09:33 WBC RBC Hgb Hct MCV MCH MCHC RDW Std Deviation RDW Coeff of [place] Plt Count MPV Immature Gran % (Auto) Neut % (Auto) Lymph % (Auto) [place] % (Auto) Eos % (Auto) Baso % (Auto) Absolute Neuts (auto) Absolute Lymphs (auto) Total Counted Neutrophils % (Manual) Band Neutrophils % Lymphocytes % (Manual) Monocytes % (Manual) Nucleated RBC % Differential Comment Diff Path Review Platelet Estimate Hypochromasia Anisocytosis Microcytosis PT INR APTT Specimen Type ART Sample Site R Radial pH 7.36 Bicarbonate Actual 8.7 L POC Total CO2 9 Base Excess -17 L O2 Saturation 97 O2 % ABG pCO2 15.4 L* ABG pO2 94 Khang Test POS Respiration Rate O2 Delivery Device Nasal Can Liter Flow 2.0 Minute Volume Vent Mode Tidal Volume POC PEEP Blood Gas Notified Whom ED Blood Gas Notified Time 927 Sodium Potassium Chloride Carbon Dioxide Anion Gap BUN Creatinine Estim Creat Clear Calc Est GFR (MDRD) Af Amer Est GFR (MDRD) Non-Af BUN/Creatinine Ratio Glucose Lactic Acid 2.2 H* Calcium Phosphorus Magnesium Total Bilirubin AST ALT Alkaline Phosphatase Troponin I B-Natriuretic Peptide 497.6 H Total Protein Albumin Globulin Albumin/Globulin Ratio TSH Urine Color Urine Clarity Urine pH Ur Specific [place] Urine Protein Urine Glucose (UA) Urine Ketones Urine Occult Blood Urine Nitrite Urine Bilirubin Urine Urobilinogen Ur Leukocyte Esterase Urine RBC Urine WBC Ur Squamous Epith Cells Urine Bacteria Urine Mucus U Random Total Protein Ur Random Sodium Urine Creatinine Protein/Creatinin Ratio Urine Potassium Urine Chloride S.aureus Protein A PCR MRSA (PCR) POC Glucose 07/03/19 07/03/19 07/03/19 10:30 10:30 10:30 WBC RBC Hgb Hct MCV MCH MCHC RDW Std Deviation RDW Coeff of [place] Plt Count MPV Immature Gran % (Auto) Neut % (Auto) Lymph % (Auto) [place] % (Auto) Eos % (Auto) Baso % (Auto) Absolute Neuts (auto) Absolute Lymphs (auto) Total Counted Neutrophils % (Manual) Band Neutrophils % Lymphocytes % (Manual) Monocytes % (Manual) Nucleated RBC % Differential Comment Diff Path Review Platelet Estimate Hypochromasia Anisocytosis Microcytosis PT INR APTT Specimen Type Sample Site pH Bicarbonate Actual POC Total CO2 Base Excess O2 Saturation O2 % ABG pCO2 ABG pO2 Khang Test Respiration Rate O2 Delivery Device Liter Flow Minute Volume Vent Mode Tidal Volume POC PEEP Blood Gas Notified Whom Blood Gas Notified Time Sodium Potassium Chloride Carbon Dioxide Anion Gap BUN Creatinine Estim Creat Clear Calc Est GFR (MDRD) Af Amer Est GFR (MDRD) Non-Af BUN/Creatinine Ratio Glucose Lactic Acid Calcium Phosphorus Magnesium Total Bilirubin AST ALT Alkaline Phosphatase Troponin I B-Natriuretic Peptide Total Protein Albumin Globulin Albumin/Globulin Ratio TSH Urine Color Brown Urine Clarity Turbid Urine pH 6.5 Ur Specific [place] 1.025 Urine Protein 100 H Urine Glucose (UA) Normal Urine Ketones 5 H Urine Occult Blood 250 H Urine Nitrite Negative Urine Bilirubin Negative Urine Urobilinogen Normal Ur Leukocyte Esterase 500 H Urine RBC 0-5 SEEN Urine WBC >100 SEEN Ur Squamous Epith Cells 0 SEEN Urine Bacteria 1+ Urine Mucus 0 SEEN U Random Total Protein 1158.8 H Ur Random Sodium Urine Creatinine 55.60 53.80 Protein/Creatinin Ratio 61537 H Urine Potassium Urine Chloride S.aureus Protein A PCR MRSA (PCR) POC Glucose 07/03/19 07/03/19 07/03/19 10:30 13:45 15:10 WBC RBC Hgb Hct MCV MCH MCHC RDW Std Deviation RDW Coeff of [place] Plt Count MPV Immature Gran % (Auto) Neut % (Auto) Lymph % (Auto) [place] % (Auto) Eos % (Auto) Baso % (Auto) Absolute Neuts (auto) Absolute Lymphs (auto) Total Counted Neutrophils % (Manual) Band Neutrophils % Lymphocytes % (Manual) Monocytes % (Manual) Nucleated RBC % Differential Comment Diff Path Review Platelet Estimate Hypochromasia Anisocytosis Microcytosis PT INR APTT Specimen Type Sample Site pH Bicarbonate Actual POC Total CO2 Base Excess O2 Saturation O2 % ABG pCO2 ABG pO2 Khang Test Respiration Rate O2 Delivery Device Liter Flow Minute Volume Vent Mode Tidal Volume POC PEEP Blood Gas Notified Whom Blood Gas Notified Time Sodium Potassium Chloride Carbon Dioxide Anion Gap BUN Creatinine Estim Creat Clear Calc Est GFR (MDRD) Af Amer Est GFR (MDRD) Non-Af BUN/Creatinine Ratio Glucose Lactic Acid 1.5 Calcium Phosphorus Magnesium Total Bilirubin AST ALT Alkaline Phosphatase Troponin I B-Natriuretic Peptide Total Protein Albumin Globulin Albumin/Globulin Ratio TSH Urine Color Urine Clarity Urine pH Ur Specific [place] Urine Protein Urine Glucose (UA) Urine Ketones Urine Occult Blood Urine Nitrite Urine Bilirubin Urine Urobilinogen Ur Leukocyte Esterase Urine RBC Urine WBC Ur Squamous Epith Cells Urine Bacteria Urine Mucus U Random Total Protein Ur Random Sodium 74 Urine Creatinine Protein/Creatinin Ratio Urine Potassium 36.0 Urine Chloride 71 S.aureus Protein A PCR NEGATIVE MRSA (PCR) Negative POC Glucose 07/03/19 07/03/19 07/03/19 15:20 15:20 16:30 WBC RBC Hgb Hct MCV MCH MCHC RDW Std Deviation RDW Coeff of [place] Plt Count MPV Immature Gran % (Auto) Neut % (Auto) Lymph % (Auto) [place] % (Auto) Eos % (Auto) Baso % (Auto) Absolute Neuts (auto) Absolute Lymphs (auto) Total Counted Neutrophils % (Manual) Band Neutrophils % Lymphocytes % (Manual) Monocytes % (Manual) Nucleated RBC % Differential Comment Diff Path Review Platelet Estimate Hypochromasia Anisocytosis Microcytosis PT INR APTT Specimen Type ART Sample Site R Brachial pH 7.16 L* Bicarbonate Actual 10.9 L POC Total CO2 12 Base Excess -18 L O2 Saturation 91 L O2 % 50 ABG pCO2 30.7 L ABG pO2 78 Khang Test NA Respiration Rate 12 O2 Delivery Device Vent Liter Flow Minute Volume 10.00 Vent Mode A-C Tidal Volume 450 POC PEEP 5 Blood Gas Notified Whom ICU MD Blood Gas Notified Time 1629 Sodium 144 Potassium 3.1 L Chloride 124 H Carbon Dioxide 14.0 L Anion Gap 6 BUN 34 H Creatinine 2.29 H Estim Creat Clear Calc 26.80 Est GFR (MDRD) Af Amer 37 L Est GFR (MDRD) Non-Af 31 L BUN/Creatinine Ratio 14.8 Glucose 87 Lactic Acid Calcium 7.7 L Phosphorus 3.4 Magnesium Total Bilirubin 0.30 AST 37 ALT 16 Alkaline Phosphatase 151 H Troponin I 7.010 H* B-Natriuretic Peptide Total Protein 5.2 L Albumin 1.7 L Globulin 3.5 Albumin/Globulin Ratio 0.5 L TSH Urine Color Urine Clarity Urine pH Ur Specific [place] Urine Protein Urine Glucose (UA) Urine Ketones Urine Occult Blood Urine Nitrite Urine Bilirubin Urine Urobilinogen Ur Leukocyte Esterase Urine RBC Urine WBC Ur Squamous Epith Cells Urine Bacteria Urine Mucus U Random Total Protein Ur Random Sodium Urine Creatinine Protein/Creatinin Ratio Urine Potassium Urine Chloride S.aureus Protein A PCR MRSA (PCR) POC Glucose 07/03/19 07/03/19 07/03/19 17:29 17:35 22:40 WBC RBC Hgb Hct MCV MCH MCHC RDW Std Deviation RDW Coeff of [place] Plt Count MPV Immature Gran % (Auto) Neut % (Auto) Lymph % (Auto) [place] % (Auto) Eos % (Auto) Baso % (Auto) Absolute Neuts (auto) Absolute Lymphs (auto) Total Counted Neutrophils % (Manual) Band Neutrophils % Lymphocytes % (Manual) Monocytes % (Manual) Nucleated RBC % Differential Comment Diff Path Review Platelet Estimate Hypochromasia Anisocytosis Microcytosis PT INR APTT Specimen Type Sample Site pH Bicarbonate Actual POC Total CO2 Base Excess O2 Saturation O2 % ABG pCO2 ABG pO2 Khang Test Respiration Rate O2 Delivery Device Liter Flow Minute Volume Vent Mode Tidal Volume POC PEEP Blood Gas Notified Whom Blood Gas Notified Time Sodium Potassium Chloride Carbon Dioxide Anion Gap BUN Creatinine Estim Creat Clear Calc Est GFR (MDRD) Af Amer Est GFR (MDRD) Non-Af BUN/Creatinine Ratio Glucose Lactic Acid Calcium Phosphorus Magnesium Total Bilirubin AST ALT Alkaline Phosphatase Troponin I 11.000 H* B-Natriuretic Peptide Total Protein Albumin Globulin Albumin/Globulin Ratio TSH Urine Color Urine Clarity Urine pH Ur Specific [place] Urine Protein Urine Glucose (UA) Urine Ketones Urine Occult Blood Urine Nitrite Urine Bilirubin Urine Urobilinogen Ur Leukocyte Esterase Urine RBC Urine WBC Ur Squamous Epith Cells Urine Bacteria Urine Mucus U Random Total Protein Ur Random Sodium Urine Creatinine Protein/Creatinin Ratio Urine Potassium Urine Chloride S.aureus Protein A PCR MRSA (PCR) POC Glucose 82 69 L 07/03/19 07/04/19 07/04/19 23:05 01:37 04:43 WBC RBC Hgb Hct MCV MCH MCHC RDW Std Deviation RDW Coeff of [place] Plt Count MPV Immature Gran % (Auto) Neut % (Auto) Lymph % (Auto) [place] % (Auto) Eos % (Auto) Baso % (Auto) Absolute Neuts (auto) Absolute Lymphs (auto) Total Counted Neutrophils % (Manual) Band Neutrophils % Lymphocytes % (Manual) Monocytes % (Manual) Nucleated RBC % Differential Comment Diff Path Review Platelet Estimate Hypochromasia Anisocytosis Microcytosis PT INR APTT Specimen Type Sample Site pH Bicarbonate Actual POC Total CO2 Base Excess O2 Saturation O2 % ABG pCO2 ABG pO2 Khang Test Respiration Rate O2 Delivery Device Liter Flow Minute Volume Vent Mode Tidal Volume POC PEEP Blood Gas Notified Whom Blood Gas Notified Time Sodium Potassium Chloride Carbon Dioxide Anion Gap BUN Creatinine Estim Creat Clear Calc Est GFR (MDRD) Af Amer Est GFR (MDRD) Non-Af BUN/Creatinine Ratio Glucose Lactic Acid Calcium Phosphorus Magnesium Total Bilirubin AST ALT Alkaline Phosphatase Troponin I B-Natriuretic Peptide Total Protein Albumin Globulin Albumin/Globulin Ratio TSH Urine Color Urine Clarity Urine pH Ur Specific [place] Urine Protein Urine Glucose (UA) Urine Ketones Urine Occult Blood Urine Nitrite Urine Bilirubin Urine Urobilinogen Ur Leukocyte Esterase Urine RBC Urine WBC Ur Squamous Epith Cells Urine Bacteria Urine Mucus U Random Total Protein Ur Random Sodium Urine Creatinine Protein/Creatinin Ratio Urine Potassium Urine Chloride S.aureus Protein A PCR MRSA (PCR) POC Glucose 139 H 91 90 07/04/19 07/04/19 07/04/19 04:45 04:45 04:45 WBC 32.8 H* RBC 2.89 L Hgb 9.2 L Hct 28.3 L MCV 97.9 H D MCH 31.8 MCHC 32.5 RDW Std Deviation 51.0 H RDW Coeff of [place] 14.2 Plt Count 365 MPV 9.4 Immature Gran % (Auto) Neut % (Auto) Not Reportable Lymph % (Auto) [place] % (Auto) Eos % (Auto) Baso % (Auto) Absolute Neuts (auto) 29.2 H Absolute Lymphs (auto) 0.98 Total Counted 100 Neutrophils % (Manual) 81 H Band Neutrophils % 8 H Lymphocytes % (Manual) 3 L Monocytes % (Manual) 8 Nucleated RBC % Differential Comment Diff Path Review May foll Platelet Estimate ADEQUATE Hypochromasia RARE Anisocytosis RARE Microcytosis RARE PT INR APTT Specimen Type Sample Site pH Bicarbonate Actual POC Total CO2 Base Excess O2 Saturation O2 % ABG pCO2 ABG pO2 Khang Test Respiration Rate O2 Delivery Device Liter Flow Minute Volume Vent Mode Tidal Volume POC PEEP Blood Gas Notified Whom Blood Gas Notified Time Sodium Potassium Chloride Carbon Dioxide Anion Gap BUN Creatinine Estim Creat Clear Calc Est GFR (MDRD) Af Amer Est GFR (MDRD) Non-Af BUN/Creatinine Ratio Glucose Lactic Acid Calcium Phosphorus 6.4 H Magnesium 2.3 Total Bilirubin AST ALT Alkaline Phosphatase Troponin I B-Natriuretic Peptide Total Protein Albumin Globulin Albumin/Globulin Ratio TSH 0.41 Urine Color Urine Clarity Urine pH Ur Specific [place] Urine Protein Urine Glucose (UA) Urine Ketones Urine Occult Blood Urine Nitrite Urine Bilirubin Urine Urobilinogen Ur Leukocyte Esterase Urine RBC Urine WBC Ur Squamous Epith Cells Urine Bacteria Urine Mucus U Random Total Protein Ur Random Sodium Urine Creatinine Protein/Creatinin Ratio Urine Potassium Urine Chloride S.aureus Protein A PCR MRSA (PCR) POC Glucose 07/04/19 05:50 WBC RBC Hgb Hct MCV MCH MCHC RDW Std Deviation RDW Coeff of [place] Plt Count MPV Immature Gran % (Auto) Neut % (Auto) Lymph % (Auto) [place] % (Auto) Eos % (Auto) Baso % (Auto) Absolute Neuts (auto) Absolute Lymphs (auto) Total Counted Neutrophils % (Manual) Band Neutrophils % Lymphocytes % (Manual) Monocytes % (Manual) Nucleated RBC % Differential Comment Diff Path Review Platelet Estimate Hypochromasia Anisocytosis Microcytosis PT INR APTT Specimen Type Sample Site pH Bicarbonate Actual POC Total CO2 Base Excess O2 Saturation O2 % ABG pCO2 ABG pO2 Khang Test Respiration Rate O2 Delivery Device Liter Flow Minute Volume Vent Mode Tidal Volume POC PEEP Blood Gas Notified Whom Blood Gas Notified Time Sodium Potassium Chloride Carbon Dioxide Anion Gap BUN Creatinine Estim Creat Clear Calc Est GFR (MDRD) Af Amer Est GFR (MDRD) Non-Af BUN/Creatinine Ratio Glucose Lactic Acid Calcium Phosphorus Magnesium Total Bilirubin AST ALT Alkaline Phosphatase Troponin I B-Natriuretic Peptide Total Protein Albumin Globulin Albumin/Globulin Ratio TSH Urine Color Urine Clarity Urine pH Ur Specific [place] Urine Protein Urine Glucose (UA) Urine Ketones Urine Occult Blood Urine Nitrite Urine Bilirubin Urine Urobilinogen Ur Leukocyte Esterase Urine RBC Urine WBC Ur Squamous Epith Cells Urine Bacteria Urine Mucus U Random Total Protein Ur Random Sodium Urine Creatinine Protein/Creatinin Ratio Urine Potassium Urine Chloride S.aureus Protein A PCR MRSA (PCR) POC Glucose 85 Microbiology 07/03/19 10:30 Urine Catheter - Catheter Legionella Antigen - Final 07/03/19 10:30 Urine Catheter - Catheter Streptococcus pneumoniae Antigen (M - Final 07/03/19 09:47 Mucosa - Nose Influenza Types A,B Direct FA (LINA) - Final Clinical Impression(s) from Imaging Studies Chest X-Ray 07/03/19 09:58 IMPRESSION: Mild degree of increased markings at the right lung base. Radiographic follow-up is recommended. Electronically Signed: Alonzo Masterson, at 10:28 EDT , Service support , Abdomen/Pelvis CT 07/03/19 10:00 IMPRESSION: Mild degree of ascites. Diffusely thickened urinary bladder wall. Extensive vascular calcifications as described. Bilateral hydronephrosis. This is unchanged. Mildly distended gallbladder with the findings suggestive of tiny gallstones or sludge within the gallbladder lumen. Electronically Signed: Alonzo Masterson, at 11:26 EDT , Service support , Chest X-Ray 07/03/19 12:02 IMPRESSION: Interval increase in diffuse pulmonary opacities more prominently at the right lower lobe as compared to a radiograph from several hours prior. This may represent worsening pulmonary edema versus acute infectious process as clinically indicated. Question small right upper lobe pulmonary nodule which may be further assessed with chest CT. Electronically Signed: Anthony Prasad, at 12:58 EDT Tel , Service support , Chest X-Ray 07/03/19 12:33 IMPRESSION: The tip of the endotracheal tube is at 5.8 cm proximal to the concepcion. The tip of the orogastric tube is at the GE junction. The remainder of the examination is unchanged. Electronically Signed: Alonzo Masterson, at 14:08 EDT , Service support , Chest X-Ray 07/03/19 23:20 IMPRESSION: Lines and tubes in satisfactory positions. Improved right basilar infiltrate since earlier today. Electronically Signed: Tony Ewing MD at 23:51 EDT , Service support , Medical Necessity - Tobacco Use Smoking Status: Current every day smoker Assessment/Plan All Active Problems (Last Reviewed 05/31/19 @ 14:31 by Eboni Jacinto) Severe sepsis (Acute) Bilateral pneumonia (Acute) Acute hypoxic respiratory failure (Acute) Acute hypoxemic respiratory failure (Acute) UTI (urinary tract infection) (Acute) Pneumonia (Acute) Pulmonary edema (Acute) Elevated troponin (Acute) Severe protein-calorie malnutrition (Acute) Hypotension (Resolved) Renal insufficiency (Acute) CARLOS EDUARDO (acute kidney injury) (Resolved) Urinary tract infection (Resolved) RECOMMENDATIONS: 1. Continue to hold sedation. If the patient's mentation does not begin to improve, will obtain CT head. 2. Obtain renal ultrasound, now that March catheter is in place, to evaluate for hydronephrosis. 3. Nephrology consultation pending. The patient may require hemodialysis support. 4. Continue broad-spectrum antimicrobial coverage. 5. Continue vasopressor support to maintain a mean arterial pressure at or above 65 mmHg. 6. Continue bronchodilators and steroids. 7. Wean FiO2 to maintain oxygen saturations at or above 90%. 8. Okay to start tube feeds today. 9. Continue appropriate ICU prophylaxis. IMPRESSIONS: 1. Septic shock Etiology appears to be underlying pulmonary infectious process with right lower lobe infiltrate noted on chest imaging, along with possible urinary tract source of infection. The patient has been adequately volume resuscitated at this time. Continue broad-spectrum antimicrobial coverage, pending finalized infectious work-up. Continue vasopressor support to maintain a mean arterial pressure at or above 65 mmHg. 2. Toxic/metabolic encephalopathy Recommend continuing to hold sedating medications. If mentation does not begin to improve, will obtain CT head. Nephrology has been consulted to assist with medical management of metabolic derangements. 3. Acute hypoxemic respiratory failure The patient does apparently have a reported history of COPD and appears to be in a state of exacerbation due to underlying pneumonia, coupled with respiratory compromise which was likely induced by volume resuscitation for his sepsis. The patient did have to be emergently intubated in the emergency department. For now, he will be maintained on assist control mode of mechanical ventilation. Infectious work-up is currently underway. Given the patient's questionable history of obstructive lung disease, he will be continued on Atrovent aerosols, given persistent tachycardia. In addition, IV steroids will also be continued. 4. Acute kidney injury Likely ischemic ATN in the setting of #1. As noted above, the patient has received IV fluid resuscitation and will be maintained on vasopressor support, as clinically indicated, to maintain hemodynamic stability. Renal function has declined over the course of the last 12 to 24 hours. Nephrology consultation is currently pending. The patient may require hemodialysis support. 5. Troponin elevation/coronary artery disease status post bypass surgery in 2008/acute systolic heart failure Unclear if troponin elevation is due to demand ischemia in the setting of #1 versus an intrinsic cardiac event. Cardiology is currently following. 6. Questionable COPD history/peripheral vascular disease/protein calorie malnutrition Complicates care, management, recovery and prognosis. Continue current supportive measures as noted above. Physical therapy to evaluate the patient once medically appropriate. TIME: 42 minutes of critical care time, independent of procedures, was spent addressing the patient's septic shock, acute hypoxemic respiratory failure, acute kidney injury, troponin elevation, acute systolic heart failure, review of all data and collaboration with the care team. [id number]) [id number] Critical care first hour
[2019-07-04] MEDS: Metoprolol Tartrate 5 MG/5 ML Vial IV (08:29)
[2019-07-04 08:55] LABS: Bedside Glucose 87 mg/dL (70-110)
[2019-07-04 08:55] LABS: ALB/GLOB Ratio 0.5 RATIO (0.9-2.4); AST(SGOT) 94 U/L (15-37); Alanine Aminotransfer ALT/SGPT 24 U/L (16-61); Albumin, Serum 1.9 g/dL (3.2-5.0); Alkaline Phosphatase 136 U/L (45-117); Anion Gap 8 (5-15); BUN 52 mg/dL (7-18); BUN/Creat Ratio 15.9 RATIO (10-20); Calcium,Total 8.7 mg/dL (8.5-10.1); Chloride 126 mmol/L (98-107); Creatinine, Serum 3.27 mg/dL (0.70-1.30); EST Glomerular Filtration Rate 20 mL/min (>60); Est Glom Filt Rate - Afr Amer 25 mL/min (>60); Estimated Creatinine Clearance 18.97 ml/min; Globulin 4.1 g/dL (2.2-4.2); Glucose 85 mg/dL (74-106); Potassium 5.1 mmol/L (3.5-5.1); Sodium Level 147 mmol/L (136-145)
--- NOTE | 2019-07-04 09:34 | US_ITS ---
STUDY: RENAL ULTRASOUND - COMPLETE REASON FOR EXAM: Male, 64 years old. CARLOS EDUARDO TECHNIQUE: Ultrasound evaluation of the kidneys was performed with real-time and static kamara-scale imaging. COMPARISON: 07/03/2019 CT scan. FINDINGS: Aorta: Visualized portions of abdominal aorta are normal in diameter. IVC: Visualized portions appear patent. Right kidney: Measures 11.7 cm. Normal contour. Renal cortical thickness appears normal. No cysts. No masses, obstructing stones, or hydronephrosis identified. Left kidney: Measures 11.0 cm. Normal contour. Renal cortical thickness appears normal. No cysts. No masses, obstructing stones, or hydronephrosis identified. 2. Small hyperechoic foci are noted within each kidney measuring 4 mm right and 5 mm left may represent vascular calcifications versus small nonobstructing stones. Bladder: Decompressed by a March catheter. US/Kidney and Bladder IMPRESSION: Small hyperechoic foci are noted within each kidney measuring 4 mm right and 5 mm left may represent vascular calcifications versus small nonobstructing stones. Renal ultrasound is otherwise within normal limits. Electronically Signed: Anthony Prasad, at 12:55 EDT Tel , Service support ,
--- NOTE | 2019-07-04 09:36 | CT_ITS ---
STUDY: CT BRAIN WITHOUT CONTRAST REASON FOR EXAM: Male, 64 years old. ENCEPHALOPATHY, POST-OP SBO, ACUTE RESP FAILURE RADIATION DOSAGE (If Supplied By Facility): CTDIvol = ( 44.99 ) mGy, DLP = ( 846.73 ) mGycm TECHNIQUE: Transaxial CT imaging of the brain was performed without administration of intravenous contrast material. Individualized dose optimization techniques were used for this CT. COMPARISON: CT head 02/11/2019. FINDINGS: Normal soft tissue structures. Normal calvarium. There is moderate cerebral atrophy with widening of the extra-axial spaces and ventricular dilatation. There are areas of decreased attenuation within the white matter tracts of the supratentorial brain, consistent with microvascular disease changes. There are small punctate calcifications of the basal ganglia which are seen in the aging brain as a normal variant. Normal brainstem. Normal cerebellum. There is no intracranial hemorrhage. There are no findings of an acute ischemic infarction. There is bilateral maxillary sinus air-fluid levels consistent with acute sinusitis. CT/Brain/Head without Contrast IMPRESSION: Chronic involutional changes of the brain. Bilateral maxillary acute sinusitis. Electronically Signed: Judy Zarate, at 12:15 EDT Tel , Service support ,
--- NOTE | 2019-07-04 09:36 | CASEMGMT ---
SW participated in ICU rounds, exwife at bedside states she is POA. LW/POA forms not on file. Exwife informed CM that POA papers may be on file at [facility]. SW called [facility], message left inquiring if they have POA papers on file, and to call this SW back. ANABEL Hong
--- NOTE | 2019-07-04 09:42 | CASEMGMT ---
RN CM Assessment Note Presentation: Sepsis, pneumonia.Ventilator. Intro role of CM and purpose of RN CM assessment to sunni Patton. Participated in ICU interdisciplinary rounds. Demographics, PCP and Pharmacy verified. PCP: Specialists: Preferred Pharmacy: Insurance: Prescription Benefit: LNOK : Living Arrangements: Transportation: DME: HHC: Patient DC goals: DC PLAN: RN CM advised to contact cm for any concerns/needs that may arise.
[2019-07-04 09:51] LABS: Base Excess -17 mmol/L (-2 to +2); Bicarbonate 10.3 mmol/L (22-26); Blood Gas Specimen Type ART; FI02 40; Mode A-C; O2 Delivery Device Vent; PEEP 5; PO2 129 mmHG (75-100); RR 12; SITE R Radial; SO2 98 % (95-99); Time Given 946; Total Carbon Dioxide 11 mmol/L; Vt 450; pCO2 24.9 mmHg (35-45); pH 7.23 (7.35-7.45)
--- NOTE | 2019-07-04 10:03 | CASEMGMT ---
MEAGAN ESTRADA Assessment Note Presentation: Sepsis, pneumonia.Ventilator. Intro role of CM and purpose of RN SEAN assessment to amy Patton. Participated in ICU interdisciplinary rounds. Demographics, PCP and Pharmacy verified. MEAGAN ESTRADA spoke with Amy after rounds. She states she is DPOA, papers not on file but may be @ [facility]. updated and will contact [facility] for copy. Per exwife, pt is living with them currently. She stated he sleeps on a recliner as his preference. First floor set up. Uses walker intermittently. Ex states they will only want pt to return home and won't consider a SNF on dc. MEAGAN ESTRADA let her know we will work towards this goal, but will need to consider his condition once extubated. PCP: Dr. Parra Specialists: Dr. Bartholomew Preferred Pharmacy: [facility]- local; [facility] does pt's pill packets. Insurance: [employer] Prescription Benefit: yes LNOK : Daughter Constance Tavera and exwife Jl Seay Living Arrangements: Lives with exwife currently. First floor set up as pt sleeps in recliner by choice. Transportation: DME: walker, wheelchair, shower chair. Denies oxygen/cpap HHC: current with [facility] HHC: RN/PT/OT/SW (add aide if goes home with HHC on dc) PH: FX: \ SNF: [facility] recently. (per exwife pt will not return there) Patient DC goals: unknown DC PLAN: undetermined. MEAGAN ESTRADA will continue to follow and assist with dc needs. Ivan WHITE RN ACM
--- NOTE | 2019-07-04 10:12 | PN_ITS ---
Patient Problems: Active and Suspected Problems (Last Reviewed 05/31/19 @ 14:31 by Eboni Jacinto) Severe sepsis (Acute) Bilateral pneumonia (Acute) Acute hypoxic respiratory failure (Acute) Acute hypoxemic respiratory failure (Acute) UTI (urinary tract infection) (Acute) Pneumonia (Acute) Pulmonary edema (Acute) Elevated troponin (Acute) Subjective: Patient seen and examined. He was admitted with a complaint of shortness of breath and was emergently intubated in the ED o./a of acute hypoxic respiratory failure. He had central line place and is being managed for severe sepsis, acute hypoxic respiratory failure due to community acquired pneumonia. Patient seen and examined this morning. He remains intubated and sedated. He is now on only fentanul, but remains very sedated, with RASS score of -4. Labs and vitals reviewed. Temperature 100.2 with blood pressure of 84/63 pulse rate of 124 as well as respiratory rate of 25. Cardiology and pulmonology on board. He is on IV vancomycin and Zosyn. Vitals/I&O's: Vital Signs Temp Pulse Resp BP Pulse Ox 98.7 F 135 H 23 H 94/65 98 07/04/19 00:00 07/04/19 08:29 07/04/19 08:00 07/04/19 08:29 07/04/19 08:00 Oxygen Flow Rate (L/min) 2 Oxygen Delivery Method Mechanical Ventilator Weight: 127 lb 13.89 oz Body Mass Index (BMI) 17.6 Finger Stick Blood Glucose 88 Intake and Output for Last 24 Hours 07/02/19 07/03/19 07/04/19 23:59 23:59 23:59 Intake Total 3278.90 / 3293.07 76.67 / 76.67 Output Total 100 / 500 875 / 875 Balance 3178.90 / 2793.07 -798.33 / -798.33 General: - - patient intubated, sedated, RASS score of -4, looks much older than stated age HEENT: Atraumatic, PERRLA, EOMI, Normocephalic Oral: Dry Mucosa Neck: Supple, No JVD, Negative Carotid Bruits Lungs: - - decreased breath sounds bibasally, no wheezes or crackles auscultated. Intubated, sedated. Cardiovascular: Normal S1, Normal S2, No murmurs, Tachycardic Abdomen: Bowel Sounds Present, Soft, Non Tender Extremities: No clubbing, No cyanosis, No edema, Capillary Refill Less than 3 Seconds Skin: No rashes, No breakdown Musculoskeletal: No Tenderness to Palpation of Joints or Extremities Lymphatic: No Cervical, Supraclavicular, or Inguinal Adenopathy Neurological: - - deeply sedated and intubated. Microbiology Past 72 Hours 07/03/19 10:30 Urine Catheter - Catheter Legionella Antigen - Final 07/03/19 10:30 Urine Catheter - Catheter Streptococcus pneumoniae Antigen (M - Final 07/03/19 09:47 Mucosa - Nose Influenza Types A,B Direct FA (LINA) - Final Laboratory Results 07/03/19 09:00: B-Natriuretic Peptide 497.6 H 07/03/19 09:26: Lactic Acid 2.2 H* 07/03/19 10:30: Urine Color Brown, Urine Clarity Turbid, Urine pH 6.5, Ur Specific Holden 1.025, Urine Protein 100 H, Urine Glucose (UA) Normal, Urine Ketones 5 H, Urine Occult Blood 250 H, Urine Nitrite Negative, Urine Bilirubin Negative, Urine Urobilinogen Normal, Ur Leukocyte Esterase 500 H, Urine RBC 0-5 SEEN, Urine WBC >100 SEEN, Ur Squamous Epith Cells 0 SEEN, Urine Bacteria 1+, Urine Mucus 0 SEEN 07/03/19 10:30: Urine Creatinine 55.60 07/03/19 10:30: U Random Total Protein 1158.8 H, Urine Creatinine 53.80, Protein/Creatinin Ratio 41401 H 07/03/19 10:30: Ur Random Sodium 74, Urine Potassium 36.0, Urine Chloride 71 07/03/19 13:45: Lactic Acid 1.5 07/03/19 15:10: S.aureus Protein A PCR NEGATIVE, MRSA (PCR) Negative 07/03/19 15:20: Sodium 144, Potassium 3.1 L, Chloride 124 H, Carbon Dioxide 14.0 L, Anion Gap 6, BUN 34 H, Creatinine 2.29 H, Estim Creat Clear Calc 26.80, Est GFR (MDRD) Af Amer 37 L, Est GFR (MDRD) Non-Af 31 L, BUN/Creatinine Ratio 14.8, Glucose 87, Calcium 7.7 L, Total Bilirubin 0.30, AST 37, ALT 16, Alkaline Phosphatase 151 H, Troponin I 7.010 H*, Total Protein 5.2 L, Albumin 1.7 L, Globulin 3.5, Albumin/Globulin Ratio 0.5 L 07/03/19 15:20: Phosphorus 3.4 07/03/19 16:30: Specimen Type ART, Sample Site R Brachial, pH 7.16 L*, Bicarbonate Actual 10.9 L, POC Total CO2 12, Base Excess -18 L, O2 Saturation 91 L, O2 % 50, ABG pCO2 30.7 L, ABG pO2 78, Khang Test NA, Respiration Rate 12, O2 Delivery Device Vent, Minute Volume 10.00, Vent Mode A-C, Tidal Volume 450, POC PEEP 5, Blood Gas Notified Whom ICU , Blood Gas Notified Time 1629 07/03/19 17:29: POC Glucose 82 07/03/19 17:35: Troponin I 11.000 H* 07/03/19 22:40: POC Glucose 69 L 07/03/19 23:05: POC Glucose 139 H 07/04/19 01:37: POC Glucose 91 07/04/19 04:43: POC Glucose 90 07/04/19 04:45: Magnesium 2.3, TSH 0.41 07/04/19 04:45: WBC 32.8 H*, RBC 2.89 L, Hgb 9.2 L, Hct 28.3 L, MCV 97.9 H D, MCH 31.8, MCHC 32.5, RDW Std Deviation 51.0 H, RDW Coeff of [place] 14.2, Plt Count 365, MPV 9.4, Neut % (Auto) Not Reportable, Absolute Neuts (auto) 29.2 H, Absolute Lymphs (auto) 0.98, Total Counted 100, Neutrophils % (Manual) 81 H, Band Neutrophils % 8 H, Lymphocytes % (Manual) 3 L, Monocytes % (Manual) 8, Diff Path Review August, Platelet Estimate ADEQUATE, Hypochromasia RARE, Anisocytosis RARE, Microcytosis RARE 07/04/19 04:45: Phosphorus 6.4 H 07/04/19 05:50: POC Glucose 85 07/04/19 08:15: Sodium 147 H, Potassium 5.1, Chloride 126 H, Carbon Dioxide 13.0 L, Anion Gap 8, BUN 52 H, Creatinine 3.27 H, Estim Creat Clear Calc 18.97, Est GFR (MDRD) Af Amer 25 L, Est GFR (MDRD) Non-Af 20 L, BUN/Creatinine Ratio 15.9, Glucose 85, Calcium 8.7, Total Bilirubin 0.30, AST 94 H, ALT 24, Alkaline Phosphatase 136 H, Total Protein 6.0 L, Albumin 1.9 L, Globulin 4.1, Albumin/Globulin Ratio 0.5 L 07/04/19 08:15: PT Pending, INR Pending 07/04/19 08:50: POC Glucose 87 07/04/19 09:45: Ammonia Pending 07/04/19 09:47: Specimen Type ART, Sample Site R Radial, pH 7.23 L, Bicarbonate Actual 10.3 L, POC Total CO2 11, Base Excess -17 L, O2 Saturation 98, O2 % 40, ABG pCO2 24.9 L, ABG pO2 129 H, Khang Test NA, Respiration Rate 12, O2 Delivery Device Vent, Minute Volume 11.00, Vent Mode A-C, Tidal Volume 450, POC PEEP 5, Blood Gas Notified Whom ICU MD, Blood Gas Notified Time 946 Diagnostic Data Abdomen/Pelvis CT 07/03/19 10:00 IMPRESSION: Mild degree of ascites. Diffusely thickened urinary bladder wall. Extensive vascular calcifications as described. Bilateral hydronephrosis. This is unchanged. Mildly distended gallbladder with the findings suggestive of tiny gallstones or sludge within the gallbladder lumen. Electronically Signed: Alonzo Masterson, at 11:26 EDT , Service support , Chest X-Ray 07/03/19 23:20 IMPRESSION: Lines and tubes in satisfactory positions. Improved right basilar infiltrate since earlier today. Electronically Signed: Tony Ewing MD at 23:51 EDT , Service support , Current Medications Acetaminophen (Tylenol Liquid) 650 mg PO Q4H PRN PRN PRN Reason: Pain Score 1-10/Temp > 100.7 F Aspirin (Aspirin, Baby) 81 mg GT DAILY [facility] Chlorhexidine Gluconate () 15 ml PO BID EMILIE Last Admin: 07/03/19 22:54 Dose: 15 ml Documented by: Clopidogrel Bisulfate (Plavix) 75 mg GT DAILY [facility] Dextrose (D50w Syringe) 0 gm IV X1 PRN; Protocol PRN Reason: Hypoglycemia Last Admin: 07/03/19 22:51 Dose: 12.5 gm Documented by: Enoxaparin Sodium (Lovenox) 30 mg SC DAILY [facility] Last Admin: 07/03/19 16:34 Dose: 30 mg Documented by: Glucagon () 1 mg IM .X1 PRN PRN Reason: Hypoglycemia Propofol (Diprivan) 1,000 mg in 100 mls @ 3.48 mls/hr CONT INF .Q12H [facility]; Protocol Last Titration: 07/04/19 05:00 Dose: Infused Documented by: Fentanyl () 100 mls @ 2.5 mls/hr IV UD [facility]; Protocol Last Titration: 07/04/19 08:00 Dose: 0 mcg/hr, 0 mls/hr Documented by: Piperacillin Sod/Tazobactam (Sod 3.375 gm/ Sodium Chloride) 50 mls @ 12.5 mls/hr IV Q8 [facility] Stop: 07/10/19 22:01 Last Infusion: 07/04/19 08:00 Dose: 12.5 mls/hr Documented by: Vancomycin IV Pharmacy to Dose (1 ea/ Sodium Chloride) 500 mls @ 250 mls/hr IV PRN PRN; Protocol Pantoprazole Sodium 40 mg/ (Sodium Chloride) 110 mls @ 330 mls/hr IV Q24 EMILIE Last Infusion: 07/03/19 16:53 Dose: Infused Documented by: Sodium Chloride () 250 mls @ 15 mls/hr IV .[id number] PRN PRN Reason: Saline Flush Sodium Chloride () 250 mls @ 15 mls/hr IV .[id number] PRN PRN Reason: Additional IVPB Infusion Vancomycin HCl () 500 mg in 100 mls @ 100 mls/hr IV Q24H [facility] Norepinephrine Bitartrate 8 mg (/ Sodium Chloride) 250 mls @ 9.375 mls/hr CONT INF .[id number] [facility]; Protocol Last Titration: 07/04/19 08:00 Dose: 0 mcg/min, 0 mls/hr Documented by: Enteral Nutritional Formula (Vital Af 1.2 Tyler Liquid) 1,000 mls @ 40 mls/hr GT .Q25H [facility] Insulin Human Lispro (Humalog Kwikpen (Bkc)) 0 unit SC Q4 EMILIE; Protocol Last Admin: 07/04/19 05:52 Dose: Not Given Documented by: Ipratropium [place] (Atrovent) 0.5 mg INHALATION Q4H.RT EMILIE Last Admin: 07/04/19 07:41 Dose: 0.5 mg Documented by: Methylprednisolone (Solu-Medrol) 40 mg IV Q6 EMILIE Last Admin: 07/04/19 05:52 Dose: 40 mg Documented by: Metoprolol Tartrate (Lopressor (Beta Reilly)) 25 mg GT BID [facility] Last Admin: 07/03/19 22:54 Dose: Not Given Documented by: Prochlorperazine Edisylate (Compazine Iv) 5 mg IV Q4H PRN PRN PRN Reason: Breakthrough Nausea/Vomiting Sodium Chloride () 10 - 40 ml IV UD PRN PRN Reason: Multilumen/Becerra Flush Last Admin: 07/03/19 22:53 Dose: 40 ml Documented by: Sodium Chloride (0.9% Nacl (Sterile) Posiflush) 10 - 40 ml IV UD PRN PRN Reason: Port access or dressing change Sodium Chloride () 10 - 40 ml IV UD PRN PRN Reason: SALINE FLUSH Thiamine HCl (Vitamin B1) 100 mg GT DAILY [facility] STROKE Vital Signs/Narrative: Vital Signs Pulse Resp BP Pulse Ox 07/04/19 08:29 135 H 94/65 07/04/19 08:00 135 H 23 H 94/65 98 07/04/19 07:38 130 H 23 H 99 Medical Necessity - Tobacco Use Smoking Status: Current every day smoker Assessment/Plan All Active Problems (Last Reviewed 05/31/19 @ 14:31 by Eboni Jacinto) Severe sepsis (Acute) Bilateral pneumonia (Acute) Acute hypoxic respiratory failure (Acute) Acute hypoxemic respiratory failure (Acute) UTI (urinary tract infection) (Acute) Pneumonia (Acute) Pulmonary edema (Acute) Elevated troponin (Acute) Severe protein-calorie malnutrition (Acute) Hypotension (Resolved) Renal insufficiency (Acute) CARLOS EDUARDO (acute kidney injury) (Resolved) Urinary tract infection (Resolved) 1. Septic shock * due to bilateral pneumonia. CXR on admission showed increased markings in right lung base, likely due to infiltrate * had to be intubated o/a of respiratory failure * on IV vancomycin and zosyn * SIRS criteria is 3/4 (tachycardia, tachypnea and leucocytosis). temperature is also 100.2F * wbc is up to 32.8 * blood cultures, respiratory panel and sputum culture pending. * influenza screen is negative and urien for strep and legionella were also negative * critical care on board * has in IJ line in place. Required pressors briefly overnight to maintain hemodynamic status * CT of the abdomen and pelvis showed mild degree of ascites was diffusely thickened urinary bladder wall and bilateral hydronephrosis with mildly distended gallbladder with findings suggestive of tiny gallstones or sludge within the gallbladder. * 2. Acute hypoxic respiratory failure * patient had to be intubated as he deteriorated on admission * ABG done showed pH of 7.16, with bicarb of 10.9 and pCO2 of 30.7, with pO2 of 94 * critical care on board * on breathing treatments with bronchodilators * on IV solumedrol 40mg q6 * 3.Non anion gap Metabolic acidosis * bicarb is 13 today, with anion gap of 8 * likely due to CARLOS EDUARDO on CKD; Cr is up to 3.27, from 2.18 on admission * nephrology consulted * 4. Nonstemi * Initial troponin was 0.751 but trended up to a peak of 11. BNP was 497.6. * He does have a history of COPD status post CABG plus peripheral artery disease. * 2D echo done in May 2019 showed Ef of 53%, with normal LV size and systolic function. * cardiology on board; * 2D echo showed EF of 20%, with RVSP of 48mmHg and indeterminate diastolic dysfunction, severe LV segmental dysfunction. Echolucency compatible with pleural effusion. * on aspirin and plavix as well as statin. * Cardiology does not recommend, and repeat cardiac cath at this time; recommend 75 mg daily of Lovenox for anticoagulation. 5. Carlos Eduardo on CKD 4 with bilateral hydronephrosis * Cr is 3.27 today. likely due to hypotension. On vasopressors. IVF stopped o/a of nonstemi. * urology consulted; awaiting rec's. 6. Hypokalemia: resolved. 7. Hypernatremia: likely due to IVF administration, as Chloride too is elevated. Cl is 126. 6. Hypertension: BP meds namely metoprolol and nifedipine on hold on account of hypotension. DVT Prophylaxis: Lovenox Code status: full code Inpatient E&M: 71875 Subs Hosp L3
[2019-07-04 10:17] LABS: Ammonia < 10.0 umol/L (11-32)
[2019-07-04 10:18] LABS: International Normalized Ratio 1.3; Prothrombin Time (Protime)PT. 16.2 SECONDS (11.7-14.9)
--- NOTE | 2019-07-04 10:18 | PCM.PN.CARD ---
Subjectve: Patient intubated, sedated, off levo fed around midnight last night. Failed weaning trial this morning. White count markedly elevated at 33,000. Echocardiogram done yesterday showed the following results: Mildly dilated left ventricle. Severe segmental systolic dysfunction (see wall motion). The estimated ejection fraction is 20 %. Mild diffuse mitral valve thickening. Moderate (2+) mitral valve insufficiency. Moderate (2+) tricuspid valve insufficiency. Trivial pulmonic valve insufficiency. Echo lucency compatible with a pleural effusion. Right ventricular systolic pressure estimated to be 48 mmHg. Diastolic function is indeterminate. Patient unresponsive and on sedation medication. Objective: Vital Signs Temp Pulse Resp BP Pulse Ox 100.2 F H 124 H 25 H 84/63 L 98 07/04/19 09:00 07/04/19 10:15 07/04/19 10:15 07/04/19 10:15 07/04/19 10:15 Oxygen Flow Rate (L/min) 2 Oxygen Delivery Method Mechanical Ventilator Weight: 127 lb 13.89 oz Body Mass Index (BMI) 17.6 Finger Stick Blood Glucose 88 Intake and Output for Last 24 Hours 07/02/19 07/03/19 07/04/19 23:59 23:59 23:59 Intake Total 3278.90 / 3293.07 102.35 / 102.35 Output Total 100 / 500 875 / 875 Balance 3178.90 / 2793.07 -772.65 / -772.65 General: Awake, Alert, Oriented x 3 HEENT: PERRL, EOMI, Sclera Non Icteric Neck: Supple, Good ROM, No Lymph Node Enlargement Lungs: Rales - Bud Bases Cardiovascular: Regular Rhythm, Normal S1, Normal S2, No Murmurs, No Rubs, No Gallops Vascular: No Carotid Bruits, Normal Femoral Pulses, Normal Radial Pulses, Normal Dorsalis Pedal Pulse, Normal Posterior Tibial Pulses Abdomen: Bowel Sounds Present, Soft, Non Tender, No HSM, No Organomegaly Extremities: No Cyanosis, No Clubbing, No edema Neurological: No Focal Motor or Sensory Deficit 07/03/19 09:00: B-Natriuretic Peptide 497.6 H 07/03/19 10:30: Urine Color Brown, Urine Clarity Turbid, Urine pH 6.5, Ur Specific [place] 1.025, Urine Protein 100 H, Urine Glucose (UA) Normal, Urine Ketones 5 H, Urine Occult Blood 250 H, Urine Nitrite Negative, Urine Bilirubin Negative, Urine Urobilinogen Normal, Ur Leukocyte Esterase 500 H, Urine RBC 0-5 SEEN, Urine WBC >100 SEEN 07/03/19 13:45: Lactic Acid 1.5 07/03/19 15:20: Sodium 144, Potassium 3.1 L, Chloride 124 H, Carbon Dioxide 14.0 L, Anion Gap 6, BUN 34 H, Creatinine 2.29 H, Est GFR (MDRD) Af Amer 37 L, Est GFR (MDRD) Non-Af 31 L, BUN/Creatinine Ratio 14.8, Glucose 87, Calcium 7.7 L, Total Bilirubin 0.30, Troponin I 7.010 H* 07/03/19 15:20: Phosphorus 3.4 07/03/19 16:30: pH 7.16 L*, Bicarbonate Actual 10.9 L, POC Total CO2 12, Base Excess -18 L, O2 Saturation 91 L, ABG pCO2 30.7 L, ABG pO2 78, Khang Test NA 07/03/19 17:35: Troponin I 11.000 H* 07/04/19 04:45: Magnesium 2.3 07/04/19 04:45: WBC 32.8 H*, RBC 2.89 L, Hgb 9.2 L, Hct 28.3 L, MCV 97.9 H D, MCH 31.8, MCHC 32.5, Plt Count 365, MPV 9.4, Neut % (Auto) Not Reportable, Absolute Neuts (auto) 29.2 H, Total Counted 100, Neutrophils % (Manual) 81 H, Band Neutrophils % 8 H, Lymphocytes % (Manual) 3 L, Monocytes % (Manual) 8 07/04/19 04:45: Phosphorus 6.4 H 07/04/19 08:15: Sodium 147 H, Potassium 5.1, Chloride 126 H, Carbon Dioxide 13.0 L, Anion Gap 8, BUN 52 H, Creatinine 3.27 H, Est GFR (MDRD) Af Amer 25 L, Est GFR (MDRD) Non-Af 20 L, BUN/Creatinine Ratio 15.9, Glucose 85, Calcium 8.7, Total Bilirubin 0.30 07/04/19 09:47: pH 7.23 L, Bicarbonate Actual 10.3 L, POC Total CO2 11, Base Excess -17 L, O2 Saturation 98, ABG pCO2 24.9 L, ABG pO2 129 H, Khang Test NA Rhythm: EKG: ECHO: Mildly dilated left ventricle. Severe segmental systolic dysfunction (see wall motion). The estimated ejection fraction is 20 %. Mild diffuse mitral valve thickening. Moderate (2+) mitral valve insufficiency. Moderate (2+) tricuspid valve insufficiency. Trivial pulmonic valve insufficiency. Echo lucency compatible with a pleural effusion. Right ventricular systolic pressure estimated to be 48 mmHg. Diastolic function is indeterminate. Stress Test: Cardiac Cath: PCI: CT Surgery: Holter monitor: EPS: PPM: CXR: Chest CT Scan: Medical Necessity - Tobacco Use Smoking Status: Current every day smoker Assessment/Plan 1. Non-STEMI: Patient presents with acute respiratory distress superimposed on severe sepsis, possibly due to cholecystitis and/or urinary tract infection. Patient's condition deteriorated rapidly over the last few hours prior to admission, requiring emergent intubation, ventilator support, and blood pressure support with Levophed. Thankfully his EKG has normalized subsequent to his intubation and relative stabilization. I reviewed the patient's catheterization films from 2018, and I would not recommend repeat catheterization at this time given the patient's condition, acute on chronic renal insufficiency, and due to the complete resolution of his ST segment changes after intubation. Peak troponin 11.0. At this point I would recommend continuing baby aspirin 81 mg p.o. daily, I have asked 75 mg a day, Lovenox adjusted for renal insufficiency to maintain anticoagulation. I would hold off on antihypertensive therapy until least 24 hours after the patient has ceased requiring IV Levophed therapy. Would recommend holding statin based medications to avoid liver insult. 2. LV dysfunction: The patient has severe global LV dysfunction most likely result of his severe sepsis, which hopefully will resolve once his sepsis has resolved. Would recommend repeat echocardiogram in 3 to 4 weeks time to determine if his LV function has improved. Given his overt sepsis, I would not recommend repeat catheterization or intra-aortic balloon pump therapy at this time. Would recommend cautious use of IV fluids as this would most likely third space into the patient's pleural space, abdominal space and upper and lower extremities in the form of edema. I would not recommend OK inhibitor or ARB's at this time given his acute on chronic renal insufficiency and hypotension requiring Levophed support. Patient is at moderate to high risk for abdominal surgery given his acute LV deterioration, non-STEMI, acute infectious process, and hypotension. Not recommend surgical procedure until the patient's condition has stabilized. 3. Patient is is in grave condition at this time which I communicated to the patient's family member. He is currently full code. I believe we can get a hold of his infectious process, he may benefit from surgical correction of his suppose a cholecystitis as a nidus for his sepsis. I would also recommend looking for other pathogens with respiratory panel, and/or CoVID 19 as deemed indicated by industrial boilermaker service. May want a consider infectious disease consultation and possible antiviral therapy if indicated. 4. Malnutrition: The patient had a recent small bowel obstruction in March 2019 and has had subsequent protein malnutrition which will make recovery from this episode somewhat problematic and decreasing the risk of success. Patient may require TPN in the short-term, followed by hyperalimentation going forward. 5. Discussed the patient's condition and options as well as possible prognosis with the patient's family member on 07/03/2019, who was at the bedside and provided much of his history for today's exam. Very guarded prognosis at this time. Now the patient is off of Levophed blood pressure support, we may want to consider transportation to tertiary care center. 6. Thank you very much for the opportunity to participate in the cardiac care of your patient. Inpatient E&M: [id number] [facility] L3
--- NOTE | 2019-07-04 10:23 | PHA.PHARE_ITS ---
Consult Pharmacy has been consulted to manage selected antiobiotic: Vancomycin Type of Consult: Follow-up Suspected Infection: Sepsis Prior Doses of Antibiotics Received/Current Regimen: the patient received 1500mg IV x1 yesterday at 14:00. Labs: Sodium 147 mmol/L (136-145) H 07/04/19 08:15 Potassium 5.1 mmol/L (3.5-5.1) 07/04/19 08:15 Chloride 126 mmol/L (98-107) H 07/04/19 08:15 Carbon Dioxide 13.0 mmol/L (21.0-32.0) L 07/04/19 08:15 Anion Gap 8 (5-15) 07/04/19 08:15 BUN 52 mg/dL (7-18) H 07/04/19 08:15 Creatinine 3.27 mg/dL (0.70-1.30) H 07/04/19 08:15 Est GFR (MDRD) Af Amer 25 mL/min (>60) L 07/04/19 08:15 Est GFR (MDRD) Non-Af 20 mL/min (>60) L 07/04/19 08:15 BUN/Creatinine Ratio 15.9 RATIO (10-20) 07/04/19 08:15 Glucose 85 mg/dL (74-106) 07/04/19 08:15 Microbiology: Microbiology 07/03/19 14:25 Mucosa - Nose Respiratory Panel (PCR) - Preliminary 07/03/19 10:30 Urine Catheter - Catheter Legionella Antigen - Final 07/03/19 10:30 Urine Catheter - Catheter Streptococcus pneumoniae Antigen (M - Final 07/03/19 09:47 Mucosa - Nose Influenza Types A,B Direct FA (LINA) - Final Weight used for dosin kg Estimated Creatinine Clearance: 19ml/min Goal Trough: 15-20 mcg/mL Pharmacy Plan for Drug Dosing: The patient's SCr john to 3.27 today (from 2.18 yesterday) and CrCl dropped to 19ml/min (from 28 yesterday). Will hold the current regimen of 500mg IV q24h which was to be started today at 14:00. Will now dose the patient as per [facility] guidelines for dosing in patients with CrCl < 20 ml/min and obtain a random level with tomorrow morning's labs. Further dosing will be determined from there. Pharmacy Service will continue to monitor and adjust dosing as required. Follow-Up Labs: Trough Vancomycin - random level Labs to be done on [date and time ordered]: 07/05/19 06:00
--- NOTE | 2019-07-04 10:48 | PCM.CONS.R ---
Consultation - Renal PCP/ Referring MD: Requesting physician: [] Primary care physician: Kenn Parra MD - History of Present Illness History of Present Illness: The patient is a 64 year old M PMH of CAD s./p CABG, TIA, PAD, COPD and Raynaud syndrome Pt presented yesterday for sudden onset of SOB with vomiting and coughing. Pt breathing and was intubated Pt was found to have septic shock from possibly UTI/Pneumonia. Renal team was consulted for CARLOS EDUARDO, metabolic acidosis and oliguria. Pt presented with SCr 2.29 mg/dL. SCr increased to 3.2 mg/dL HCO3 is low at 13. Pt needed levophed last night bu currently off CT showed b/l hydro. No urologist available here in [facility] As per the patient's ex , patient had HUGHES and mascorro cath was taken out last week ROS: 12 systems review is non obtainable[] - Allergies Allergies: Allergies No Known Allergies Allergy (Verified 03/01/19 00:06) - Current Medications Current Medications: Current Medications Acetaminophen (Tylenol Liquid) 650 mg PO Q4H PRN PRN PRN Reason: Pain Score 1-10/Temp > 100.7 F Aspirin (Aspirin, Baby) 81 mg GT DAILY [facility] Chlorhexidine Gluconate () 15 ml PO BID [facility] Last Admin: 07/03/19 22:54 Dose: 15 ml Documented by: Clopidogrel Bisulfate (Plavix) 75 mg GT DAILY [facility] Dextrose (D50w Syringe) 0 gm IV X1 PRN; Protocol PRN Reason: Hypoglycemia Last Admin: 07/03/19 22:51 Dose: 12.5 gm Documented by: Enoxaparin Sodium (Lovenox) 30 mg SC DAILY [facility] Last Admin: 07/03/19 16:34 Dose: 30 mg Documented by: Glucagon () 1 mg IM .X1 PRN PRN Reason: Hypoglycemia Propofol (Diprivan) 1,000 mg in 100 mls @ 3.48 mls/hr CONT INF .Q12H [facility]; Protocol Last Titration: 07/04/19 05:00 Dose: Infused Documented by: Fentanyl () 100 mls @ 2.5 mls/hr IV UD [facility]; Protocol Last Titration: 07/04/19 08:00 Dose: 0 mcg/hr, 0 mls/hr Documented by: Piperacillin Sod/Tazobactam (Sod 3.375 gm/ Sodium Chloride) 50 mls @ 12.5 mls/hr IV Q8 [facility] Stop: 07/10/19 22:01 Last Infusion: 07/04/19 10:14 Dose: Infused Documented by: Vancomycin IV Pharmacy to Dose (1 ea/ Sodium Chloride) 500 mls @ 250 mls/hr IV PRN PRN; Protocol Pantoprazole Sodium 40 mg/ (Sodium Chloride) 110 mls @ 330 mls/hr IV Q24 [facility] Last Infusion: 07/03/19 16:53 Dose: Infused Documented by: Sodium Chloride () 250 mls @ 15 mls/hr IV .[id number] PRN PRN Reason: Saline Flush Sodium Chloride () 250 mls @ 15 mls/hr IV .[id number] PRN PRN Reason: Additional IVPB Infusion Norepinephrine Bitartrate 8 mg (/ Sodium Chloride) 250 mls @ 9.375 mls/hr CONT INF .[id number] [facility]; Protocol Last Titration: 07/04/19 10:15 Dose: 5 mcg/min, 9.4 mls/hr Documented by: Enteral Nutritional Formula (Vital Af 1.2 Tyler Liquid) 1,000 mls @ 40 mls/hr GT .Q25H [facility] Insulin Human Lispro (Humalog Kwikpen (Bkc)) 0 unit SC Q4 [facility]; Protocol Last Admin: 07/04/19 05:52 Dose: Not Given Documented by: Ipratropium [place] (Atrovent) 0.5 mg INHALATION Q4H.RT [facility] Last Admin: 07/04/19 07:41 Dose: 0.5 mg Documented by: Methylprednisolone (Solu-Medrol) 40 mg IV Q6 [facility] Last Admin: 07/04/19 05:52 Dose: 40 mg Documented by: Metoprolol Tartrate (Lopressor (Beta Reilly)) 25 mg GT BID [facility] Last Admin: 07/03/19 22:54 Dose: Not Given Documented by: Prochlorperazine Edisylate (Compazine Iv) 5 mg IV Q4H PRN PRN PRN Reason: Breakthrough Nausea/Vomiting Sodium Chloride () 10 - 40 ml IV UD PRN PRN Reason: Multilumen/Becerra Flush Last Admin: 07/03/19 22:53 Dose: 40 ml Documented by: Sodium Chloride (0.9% Nacl (Sterile) Posiflush) 10 - 40 ml IV UD PRN PRN Reason: Port access or dressing change Sodium Chloride () 10 - 40 ml IV UD PRN PRN Reason: SALINE FLUSH Thiamine HCl (Vitamin B1) 100 mg GT DAILY [facility] - Past Medical History Past Medical History (Chronic Problems): Chronic Problems (Last Reviewed 05/31/19 @ 14:31 by Eboni Jacinto) S/P CABG x 4 (Chronic ~2008) HOFFMAN to LAD, SVG to 1st Diagonal, SVG to 1st OM, SVG to Right PDA, Done @ [employer] [facility]. Atherosclerotic heart disease of [place] coronary artery without angina pectoris (Chronic) History of non-ST elevation myocardial infarction (NSTEMI) (Chronic 03/22/18) History of TIA (transient ischemic attack) (Chronic) PAD (peripheral artery disease) (Chronic) HTN (hypertension) (Chronic) HLD (hyperlipidemia) (Chronic) COPD (chronic obstructive pulmonary disease) (Chronic) Obstructive sleep apnea (Chronic) Raynaud's syndrome (Chronic) - Past Surgical History Surgical History: appendectomy, coronary bypass surgery, tonsillectomy, - - appendix out, cabg , tonsils out, eye surgery, heart stent before surgery., Bowel obstruction - Social History Smoking Status: Current every day smoker - Family History Maternal Family History: Family History (Last Reviewed 05/31/19 @ 14:31 by Eboni Jacinto) Father Cancer Mother Murder Brother Colon cancer Brother Diabetes Brother Diabetes Brother Diabetes Sister Diabetes History Items: - - Patient reports that her mother was murdered Paternal Family History: Family History (Last Reviewed 05/31/19 @ 14:31 by Eboni Jacinto) Father Cancer Mother Murder Brother Colon cancer Brother Diabetes Brother Diabetes Brother Diabetes Sister Diabetes History Items: Cancer, - - lung cancer Sibling Family History: Family History (Last Reviewed 05/31/19 @ 14:31 by Eboni Jacinto) Father Cancer Mother Murder Brother Colon cancer Brother Diabetes Brother Diabetes Brother Diabetes Sister Diabetes History Items: Diabetes Patient Problems: Active and Suspected Problems (Last Reviewed 05/31/19 @ 14:31 by Eboni Jacinto) Severe sepsis (Acute) Bilateral pneumonia (Acute) Acute hypoxic respiratory failure (Acute) Acute hypoxemic respiratory failure (Acute) UTI (urinary tract infection) (Acute) Pneumonia (Acute) Pulmonary edema (Acute) Elevated troponin (Acute) - Physical Exam Vitals/I&O's: Vital Signs Temp Pulse Resp BP Pulse Ox 100.2 F H 124 H 25 H 84/63 L 98 07/04/19 09:00 07/04/19 10:15 07/04/19 10:15 07/04/19 10:15 07/04/19 10:15 Oxygen Flow Rate (L/min) 2 Oxygen Delivery Method Mechanical Ventilator Weight: 58 kg Body Mass Index (BMI) 17.6 Finger Stick Blood Glucose 88 Intake and Output for Last 24 Hours 07/02/19 07/03/19 07/04/19 23:59 23:59 23:59 Intake Total 3278.90 / 3293.07 102.35 / 102.35 Output Total 100 / 500 875 / 875 Balance 3178.90 / 2793.07 -772.65 / -772.65 General: - - Intubated HEENT: Atraumatic Oral: Moist Mucosa Neck: Supple, No JVD Lungs: Tachypneic - equal air entry. decreased BS over both lungs bases. No wheezing., - Cardiovascular: Regular Rhythm, Normal S1, Normal S2, Tachycardic Abdomen: Non Tender, - - decreased BS Extremities: No clubbing, No cyanosis, No edema Musculoskeletal: No Muscle Wasting Lymphatic: No Cervical, Supraclavicular, or Inguinal Adenopathy Psych/Mental Status: - - intubated Microbiology Past 72 Hours 07/03/19 14:25 Mucosa - Nose Respiratory Panel (PCR) - Preliminary 07/03/19 10:30 Urine Catheter - Catheter Legionella Antigen - Final 07/03/19 10:30 Urine Catheter - Catheter Streptococcus pneumoniae Antigen (M - Final 07/03/19 09:47 Mucosa - Nose Influenza Types A,B Direct FA (LINA) - Final Laboratory Results 07/03/19 09:00: B-Natriuretic Peptide 497.6 H 07/03/19 10:30: Urine Color Brown, Urine Clarity Turbid, Urine pH 6.5, Ur Specific [place] 1.025, Urine Protein 100 H, Urine Glucose (UA) Normal, Urine Ketones 5 H, Urine Occult Blood 250 H, Urine Nitrite Negative, Urine Bilirubin Negative, Urine Urobilinogen Normal, Ur Leukocyte Esterase 500 H, Urine RBC 0-5 SEEN, Urine WBC >100 SEEN, Ur Squamous Epith Cells 0 SEEN, Urine Bacteria 1+, Urine Mucus 0 SEEN 07/03/19 10:30: Urine Creatinine 55.60 07/03/19 10:30: U Random Total Protein 1158.8 H, Urine Creatinine 53.80, Protein/Creatinin Ratio 07181 H 07/03/19 10:30: Ur Random Sodium 74, Urine Potassium 36.0, Urine Chloride 71 07/03/19 13:45: Lactic Acid 1.5 07/03/19 15:10: S.aureus Protein A PCR NEGATIVE, MRSA (PCR) Negative 07/03/19 15:20: Sodium 144, Potassium 3.1 L, Chloride 124 H, Carbon Dioxide 14.0 L, Anion Gap 6, BUN 34 H, Creatinine 2.29 H, Estim Creat Clear Calc 26.80, Est GFR (MDRD) Af Amer 37 L, Est GFR (MDRD) Non-Af 31 L, BUN/Creatinine Ratio 14.8, Glucose 87, Calcium 7.7 L, Total Bilirubin 0.30, AST 37, ALT 16, Alkaline Phosphatase 151 H, Troponin I 7.010 H*, Total Protein 5.2 L, Albumin 1.7 L, Globulin 3.5, Albumin/Globulin Ratio 0.5 L 07/03/19 15:20: Phosphorus 3.4 07/03/19 16:30: Specimen Type ART, Sample Site R Brachial, pH 7.16 L*, Bicarbonate Actual 10.9 L, POC Total CO2 12, Base Excess -18 L, O2 Saturation 91 L, O2 % 50, ABG pCO2 30.7 L, ABG pO2 78, Khang Test NA, Respiration Rate 12, O2 Delivery Device Vent, Minute Volume 10.00, Vent Mode A-C, Tidal Volume 450, POC PEEP 5, Blood Gas Notified Whom ICU , Blood Gas Notified Time 1629 07/03/19 17:29: POC Glucose 82 07/03/19 17:35: Troponin I 11.000 H* 07/03/19 22:40: POC Glucose 69 L 07/03/19 23:05: POC Glucose 139 H 07/04/19 01:37: POC Glucose 91 07/04/19 04:43: POC Glucose 90 07/04/19 04:45: Magnesium 2.3, TSH 0.41 07/04/19 04:45: WBC 32.8 H*, RBC 2.89 L, Hgb 9.2 L, Hct 28.3 L, MCV 97.9 H D, MCH 31.8, MCHC 32.5, RDW Std Deviation 51.0 H, RDW Coeff of [place] 14.2, Plt Count 365, MPV 9.4, Neut % (Auto) Not Reportable, Absolute Neuts (auto) 29.2 H, Absolute Lymphs (auto) 0.98, Total Counted 100, Neutrophils % (Manual) 81 H, Band Neutrophils % 8 H, Lymphocytes % (Manual) 3 L, Monocytes % (Manual) 8, Diff Path Review August, Platelet Estimate ADEQUATE, Hypochromasia RARE, Anisocytosis RARE, Microcytosis RARE 07/04/19 04:45: Phosphorus 6.4 H 07/04/19 05:50: POC Glucose 85 07/04/19 08:15: Sodium 147 H, Potassium 5.1, Chloride 126 H, Carbon Dioxide 13.0 L, Anion Gap 8, BUN 52 H, Creatinine 3.27 H, Estim Creat Clear Calc 18.97, Est GFR (MDRD) Af Amer 25 L, Est GFR (MDRD) Non-Af 20 L, BUN/Creatinine Ratio 15.9, Glucose 85, Calcium 8.7, Total Bilirubin 0.30, AST 94 H, ALT 24, Alkaline Phosphatase 136 H, Total Protein 6.0 L, Albumin 1.9 L, Globulin 4.1, Albumin/Globulin Ratio 0.5 L 07/04/19 08:15: PT 16.2 H, INR 1.3 07/04/19 08:50: POC Glucose 87 07/04/19 09:45: Ammonia < 10.0 L 07/04/19 09:47: Specimen Type ART, Sample Site R Radial, pH 7.23 L, Bicarbonate Actual 10.3 L, POC Total CO2 11, Base Excess -17 L, O2 Saturation 98, O2 % 40, ABG pCO2 24.9 L, ABG pO2 129 H, Khang Test NA, Respiration Rate 12, O2 Delivery Device Vent, Minute Volume 11.00, Vent Mode A-C, Tidal Volume 450, POC PEEP 5, Blood Gas Notified Whom ICU MD, Blood Gas Notified Time 946 Current Medications Acetaminophen (Tylenol Liquid) 650 mg PO Q4H PRN PRN PRN Reason: Pain Score 1-10/Temp > 100.7 F Aspirin (Aspirin, Baby) 81 mg GT DAILY [facility] Chlorhexidine Gluconate () 15 ml PO BID [facility] Last Admin: 07/03/19 22:54 Dose: 15 ml Documented by: Clopidogrel Bisulfate (Plavix) 75 mg GT DAILY [facility] Dextrose (D50w Syringe) 0 gm IV X1 PRN; Protocol PRN Reason: Hypoglycemia Last Admin: 07/03/19 22:51 Dose: 12.5 gm Documented by: Enoxaparin Sodium (Lovenox) 30 mg SC DAILY [facility] Last Admin: 07/03/19 16:34 Dose: 30 mg Documented by: Glucagon () 1 mg IM .X1 PRN PRN Reason: Hypoglycemia Propofol (Diprivan) 1,000 mg in 100 mls @ 3.48 mls/hr CONT INF .Q12H [facility]; Protocol Last Titration: 07/04/19 05:00 Dose: Infused Documented by: Fentanyl () 100 mls @ 2.5 mls/hr IV UD [facility]; Protocol Last Titration: 07/04/19 08:00 Dose: 0 mcg/hr, 0 mls/hr Documented by: Piperacillin Sod/Tazobactam (Sod 3.375 gm/ Sodium Chloride) 50 mls @ 12.5 mls/hr IV Q8 [facility] Stop: 07/10/19 22:01 Last Infusion: 07/04/19 10:14 Dose: Infused Documented by: Vancomycin IV Pharmacy to Dose (1 ea/ Sodium Chloride) 500 mls @ 250 mls/hr IV PRN PRN; Protocol Pantoprazole Sodium 40 mg/ (Sodium Chloride) 110 mls @ 330 mls/hr IV Q24 [facility] Last Infusion: 07/03/19 16:53 Dose: Infused Documented by: Sodium Chloride () 250 mls @ 15 mls/hr IV .[id number] PRN PRN Reason: Saline Flush Sodium Chloride () 250 mls @ 15 mls/hr IV .[id number] PRN PRN Reason: Additional IVPB Infusion Norepinephrine Bitartrate 8 mg (/ Sodium Chloride) 250 mls @ 9.375 mls/hr CONT INF .[id number] [facility]; Protocol Last Titration: 07/04/19 10:15 Dose: 5 mcg/min, 9.4 mls/hr Documented by: Enteral Nutritional Formula (Vital Af 1.2 Tyler Liquid) 1,000 mls @ 40 mls/hr GT .Q25H [facility] Insulin Human Lispro (Humalog Kwikpen (Bkc)) 0 unit SC Q4 [facility]; Protocol Last Admin: 07/04/19 05:52 Dose: Not Given Documented by: Ipratropium [place] (Atrovent) 0.5 mg INHALATION Q4H.RT [facility] Last Admin: 07/04/19 07:41 Dose: 0.5 mg Documented by: Methylprednisolone (Solu-Medrol) 40 mg IV Q6 [facility] Last Admin: 07/04/19 05:52 Dose: 40 mg Documented by: Metoprolol Tartrate (Lopressor (Beta Reilly)) 25 mg GT BID [facility] Last Admin: 07/03/19 22:54 Dose: Not Given Documented by: Prochlorperazine Edisylate (Compazine Iv) 5 mg IV Q4H PRN PRN PRN Reason: Breakthrough Nausea/Vomiting Sodium Chloride () 10 - 40 ml IV UD PRN PRN Reason: Multilumen/Becerra Flush Last Admin: 07/03/19 22:53 Dose: 40 ml Documented by: Sodium Chloride (0.9% Nacl (Sterile) Posiflush) 10 - 40 ml IV UD PRN PRN Reason: Port access or dressing change Sodium Chloride () 10 - 40 ml IV UD PRN PRN Reason: SALINE FLUSH Thiamine HCl (Vitamin B1) 100 mg GT DAILY [facility] Assessment/Plan All Active Problems (Last Reviewed 05/31/19 @ 14:31 by Eboni Jacinto) Severe sepsis (Acute) Bilateral pneumonia (Acute) Acute hypoxic respiratory failure (Acute) Acute hypoxemic respiratory failure (Acute) UTI (urinary tract infection) (Acute) Pneumonia (Acute) Pulmonary edema (Acute) Elevated troponin (Acute) Severe protein-calorie malnutrition (Acute) Hypotension (Resolved) Renal insufficiency (Acute) CARLOS EDUARDO (acute kidney injury) (Resolved) Urinary tract infection (Resolved) 1- CARLOS EDUARDO . SCr was normal prior to January 2019. In January patient had CARLOS EDUARDO when SCr peaked at 3.1 mg/dL and improved next day to 1.7 UA showed WBC > 100, lse 500, and protein 100 CT showed B/L hydronephrosis. Pt is oliguric despite placing mascorro CARLOS EDUARDO is likely ischemic ATN Patient has metabolic acidosis with oliguria Will arrange for HD session today for 3 hours BQ 300 QD 700. No UF Will continue to monitor for kidney function recovery Keep MAP > 65. Avoid IV contrast 2- Metabolic acidosis from hemodynamic shock, and CARLOS EDUARDO Should improve with HD 3- B/L hydronephrosis. Pt had h/o HUGHES needed mascorro cath placement which was taken out last week I agree with repeat renal US 4- Septic shock from pneumonia/UTI Better. off pressors Abx as per ICU/ID 5- Acute RF Vent management as per ICU team Plan of care was d/w Dr. Moscoso Thank you for the consult. Please call if any question at [phone] Renal team will continue to follow with you Ronaldo Weaver MD
[2019-07-04] MEDS: Acetaminophen 650 MG/20 ML UDC PO ×2 (11:15→15:39)
[2019-07-04] MEDS: Thiamine Hydrochloride 100 MG Tablet GT (11:15)
[2019-07-04] MEDS: Chlorhexidine 15 ML PO ×2 (11:17→23:00)
[2019-07-04] MEDS: Vital AF 1.2 Cal Liquid 1,000 ML 40 ML GT (12:21)
[2019-07-04 12:33] LABS: Pathologist Review Reviewed
--- NOTE | 2019-07-04 12:51 | CON.PCM_ITS ---
Reason for Consult Date of Consultation: 07/04/19 Reason for Consultation: Retention of urine and bilateral hydronephrosis History of Present Illness: The patient is a 64 year old male who is in the intensive care unit presented to the hospital quite ill he been ill for the last year, presented with incontinence of urine CAT scan was done had a catheter placed at that time but he did have hydroureter and hydronephrosis bilaterally. He also had prior to placement of March catheter per the notes retention of urine I think he has obstruction with bilateral hydronephrosis probably from BPH and obstruction and outlet obstruction. Now that the catheter is in place follow-up with ultrasound has been done he does not have any residual hydronephrosis in both kidneys just some mild hydronephrosis but not significant his creatinine is elevated but I do not think this is postobstructive I think this is most likely due to his overall medical condition and prerenal status and poor health status in the ICU. From a urologic standpoint I dont have anything to offer or any intervention is necessary continue with resuscitation per ICU management I would continue with a March catheter and if any questions please give me a call. Past Medical History Past Medical History (Chronic Problems): Chronic Problems (Last Reviewed 05/31/19 @ 14:31 by Eboni Jacinto) S/P CABG x 4 (Chronic ~2008) HOFFMAN to LAD, SVG to 1st Diagonal, SVG to 1st OM, SVG to Right PDA, Done @ [facility]. Atherosclerotic heart disease of [place] coronary artery without angina pectoris (Chronic) History of non-ST elevation myocardial infarction (NSTEMI) (Chronic 03/22/18) History of TIA (transient ischemic attack) (Chronic) PAD (peripheral artery disease) (Chronic) HTN (hypertension) (Chronic) HLD (hyperlipidemia) (Chronic) COPD (chronic obstructive pulmonary disease) (Chronic) Obstructive sleep apnea (Chronic) Raynaud's syndrome (Chronic) Medical History: Medical History (Last Reviewed 05/31/19 @ 14:31 by Eboni Jacinto) Sepsis due to urinary tract infection (Inactive) A41.9, N39.0 Severe protein-calorie malnutrition (Acute) E43 Hypotension (Resolved) I95.9 Atherosclerotic heart disease of [place] coronary artery without angina pectoris (Chronic) I25.10 History of non-ST elevation myocardial infarction (NSTEMI) (Chronic) Onset Date: 03/22/18 I25.2 History of TIA (transient ischemic attack) (Chronic) Z86.73 PAD (peripheral artery disease) (Chronic) I73.9 HTN (hypertension) (Chronic) I10 Renal insufficiency (Acute) N28.9 HLD (hyperlipidemia) (Chronic) E78.5 COPD (chronic obstructive pulmonary disease) (Chronic) J44.9 Obstructive sleep apnea (Chronic) G47.33 CARLOS EDUARDO (acute kidney injury) (Resolved) N17.9 Urinary tract infection (Resolved) N39.0 Raynaud's syndrome (Chronic) I73.00 Illicit drug use (Inactive) F19.90 ETOH abuse (Inactive) F10.10 Small bowel obstruction Onset Date: 02/11/19 K56.609 Allergies No Known Allergies Allergy (Verified 03/01/19 00:06) Home Medications: Ambulatory Orders Medication Instructions Recorded Albuterol Inhaler [Ventolin Hfa] 2 puff INHALATION Q4H PRN PRN 07/12/17 Fluticasone/Vilanterol [Breo 1 ea IH DAILY 07/12/17 Ellipta 200-25 Mcg INH] Gabapentin [Neurontin] 600 mg PO BID 07/12/17 Omeprazole [Prilosec] 20 mg PO DAILY 07/12/17 Aspirin [Aspir-Low] 81 mg PO DAILY 09/08/18 Fluoxetine HCl 20 mg PO DAILY 09/08/18 Metoprolol Tartrate [Lopressor 25 mg PO BID 09/08/18 (beta sascha)] Ascorbic Acid [Vitamin C] 500 mg PO DAILY@0800 03/01/19 clopidogrel 75 mg tablet 75 mg PO DAILY #90 tab 06/25/19 isosorbide mononitrate 30 mg 45 mg PO DAILY #90 tab 06/25/19 tablet,extended release 24 hr nitroglycerin 0.4 mg sublingual 0.4 mg SUBLINGUAL Q5M PRN #25 tab 06/25/19 tablet Atorvastatin Calcium [Lipitor] 40 mg PO QHS 07/03/19 Folic Acid 1 mg PO DAILY@0800 07/03/19 Gabapentin [Neurontin] 800 mg PO QHS 07/03/19 Multivitamin with Minerals 1 tab PO DAILY 07/03/19 [Multivitamins with Minerals] NIFEdipine [Procardia XL] 90 mg PO DAILY 07/03/19 Pantoprazole Sodium 20 mg PO DAILY 07/03/19 Thiamine Hydrochloride [Vitamin B1] 100 mg PO DAILYCM 07/03/19 Surgical History: Surgical History (Last Reviewed 05/31/19 @ 14:31 by Eboni Jacinto) S/P CABG x 4 (Chronic) Onset Date: ~2008 Z95.1 HOFFMAN to LAD, SVG to 1st Diagonal, SVG to 1st OM, SVG to Right PDA, Done @ [facility]. History of appendectomy Z90.49 History of tonsillectomy Z90.89 Hx of exploratory laparotomy Onset Date: 02/11/19 Z98.890 with lysis of adhesions, [facility] main [place] history of pelvic drain tube placement Onset Date: 02/2019 Placed at [facility]; Removed 03/31/2019 Surgical History: appendectomy, coronary bypass surgery, tonsillectomy, - - appendix out, cabg , tonsils out, eye surgery, heart stent before surgery., Bowel obstruction Smoking Status: Current every day smoker - *Family History Maternal Family History: Family History (Last Reviewed 05/31/19 @ 14:31 by Eboni Jacinto) Father Cancer Mother Murder Brother Colon cancer Brother Diabetes Brother Diabetes Brother Diabetes Sister Diabetes History Items: - - Patient reports that her mother was murdered Paternal Family History: Family History (Last Reviewed 05/31/19 @ 14:31 by Eboni Jacinto) Father Cancer Mother Murder Brother Colon cancer Brother Diabetes Brother Diabetes Brother Diabetes Sister Diabetes History Items: Cancer, - - lung cancer Sibling Family History: Family History (Last Reviewed 05/31/19 @ 14:31 by Eboni Jacinto) Father Cancer Mother Murder Brother Colon cancer Brother Diabetes Brother Diabetes Brother Diabetes Sister Diabetes History Items: Diabetes Physical Exam - Physical Exam Vital Signs Temp 100.2 F H 07/04/19 09:00 Pulse 125 H 07/04/19 12:00 Resp 25 H 07/04/19 10:15 BP 84/63 L 07/04/19 10:15 Pulse Ox 98 07/04/19 10:15 Intake & Output 07/02/19 07/03/19 07/04/19 23:59 23:59 23:59 Intake Total 3278.90 / 3293.07 212.35 / 212.35 Output Total 100 / 500 950 / 950 Balance 3178.90 / 2793.07 -737.65 / -737.65 Weight: 57.4 kg 58 kg Intake: Intake, IV Amount 3278.90 / 3293.07 212.35 / 212.35 0.9% Normal Saline 1,000 ML @ 2000 / 2000 999 mls/hr IV .Q1H1M [facility] Rx#: [id number] Diprivan 1,000 mg In 100 ml @ 32.55 / 32.55 0 / 0 10 MCG/KG/MIN 3.48 mls/hr CONT INF .Q12H [facility] Rx#:[id number] Levophed 8 MG In 0.9% Normal 208.77 / 208.77 2.35 / 2.35 Saline 250 ML @ 5 MCG/MIN 9.375 mls/hr CONT INF .[id number] [facility] Rx#:[id number] Magnesium Sulfate 2 GM In 0.9% 104 / 104 Normal Saline 100 ML @ 52 mls/ hr IV X1 ONE Rx#:[id number] Potassium Chloride 40 MEQ/20 ML 120 / 120 In 0.9% Normal Saline 100 ML @ 100 mls/hr IV BOLUS X1 ONE Rx# :[id number] Protonix 40 MG In 0.9% Normal 110 / 110 110 / 110 Saline 100 ML @ 330 mls/hr IV Q24 [facility] Rx#:[id number] Vancomycin IV 1,000 MG/20 ML In 530 / 530 0.9% Normal Saline 500 ML @ 250 mls/hr IV X1 ONE Rx#: [id number] Zosyn 3.375 GM In 0.9% Normal 100.00 / 100.00 Saline 50 ML @ 12.5 mls/hr IV Q8 [facility] Rx#:[id number] Zosyn 4.5 GM In 0.9% Normal 100 / 100 Saline 100 ML @ 200 mls/hr IV X1 ONE Rx#:[id number] fentaNYL drip 10 MCG/ML @ 25 73.58 / 73.58 0 / 0 MCG/HR 2.5 mls/hr IV UD [facility] Rx# :[id number] Output: Urine 100 / 200 250 / 250 Gastric Drainage 700 / 700 Other: Number of Bowel Movements 1 Microbiology Past 72 Hours 07/03/19 14:25 Respiratory Panel (PCR) - Final Mucosa - Nose 07/03/19 15:45 Gram Stain - Final Sputum, Induced/Lukens 07/03/19 10:30 Legionella Antigen - Final Urine Catheter - Catheter 07/03/19 10:30 Streptococcus pneumoniae Antigen (M - Final Urine Catheter - Catheter 07/03/19 09:47 Influenza Types A,B Direct FA (LINA) - Final Mucosa - Nose Laboratory Tests Past 24 Hrs 07/03/19 07/03/19 07/03/19 09:00 10:30 10:30 WBC RBC Hgb Hct MCV MCH MCHC RDW Std Deviation RDW Coeff of [place] Plt Count MPV Neut % (Auto) Absolute Neuts (auto) Absolute Lymphs (auto) Total Counted Neutrophils % (Manual) Band Neutrophils % Lymphocytes % (Manual) Monocytes % (Manual) Diff Path Review Platelet Estimate Hypochromasia Anisocytosis Microcytosis PT INR Specimen Type Sample Site pH Bicarbonate Actual POC Total CO2 Base Excess O2 Saturation O2 % ABG pCO2 ABG pO2 Khang Test Respiration Rate O2 Delivery Device Minute Volume Vent Mode Tidal Volume POC PEEP Blood Gas Notified Whom Blood Gas Notified Time Sodium Potassium Chloride Carbon Dioxide Anion Gap BUN Creatinine Estim Creat Clear Calc Est GFR (MDRD) Af Amer Est GFR (MDRD) Non-Af BUN/Creatinine Ratio Glucose Lactic Acid Calcium Phosphorus Magnesium Total Bilirubin AST ALT Alkaline Phosphatase Ammonia Troponin I B-Natriuretic Peptide 497.6 H Total Protein Albumin Globulin Albumin/Globulin Ratio TSH U Random Total Protein 1158.8 H Ur Random Sodium Urine Creatinine 55.60 53.80 Protein/Creatinin Ratio 91413 H Urine Potassium Urine Chloride S.aureus Protein A PCR MRSA (PCR) 07/03/19 07/03/19 07/03/19 10:30 13:45 15:10 WBC RBC Hgb Hct MCV MCH MCHC RDW Std Deviation RDW Coeff of [place] Plt Count MPV Neut % (Auto) Absolute Neuts (auto) Absolute Lymphs (auto) Total Counted Neutrophils % (Manual) Band Neutrophils % Lymphocytes % (Manual) Monocytes % (Manual) Diff Path Review Platelet Estimate Hypochromasia Anisocytosis Microcytosis PT INR Specimen Type Sample Site pH Bicarbonate Actual POC Total CO2 Base Excess O2 Saturation O2 % ABG pCO2 ABG pO2 Khang Test Respiration Rate O2 Delivery Device Minute Volume Vent Mode Tidal Volume POC PEEP Blood Gas Notified Whom Blood Gas Notified Time Sodium Potassium Chloride Carbon Dioxide Anion Gap BUN Creatinine Estim Creat Clear Calc Est GFR (MDRD) Af Amer Est GFR (MDRD) Non-Af BUN/Creatinine Ratio Glucose Lactic Acid 1.5 Calcium Phosphorus Magnesium Total Bilirubin AST ALT Alkaline Phosphatase Ammonia Troponin I B-Natriuretic Peptide Total Protein Albumin Globulin Albumin/Globulin Ratio TSH U Random Total Protein Ur Random Sodium 74 Urine Creatinine Protein/Creatinin Ratio Urine Potassium 36.0 Urine Chloride 71 S.aureus Protein A PCR NEGATIVE MRSA (PCR) Negative 07/03/19 07/03/19 07/03/19 15:20 15:20 16:30 WBC RBC Hgb Hct MCV MCH MCHC RDW Std Deviation RDW Coeff of [place] Plt Count MPV Neut % (Auto) Absolute Neuts (auto) Absolute Lymphs (auto) Total Counted Neutrophils % (Manual) Band Neutrophils % Lymphocytes % (Manual) Monocytes % (Manual) Diff Path Review Platelet Estimate Hypochromasia Anisocytosis Microcytosis PT INR Specimen Type ART Sample Site R Brachial pH 7.16 L* Bicarbonate Actual 10.9 L POC Total CO2 12 Base Excess -18 L O2 Saturation 91 L O2 % 50 ABG pCO2 30.7 L ABG pO2 78 Khang Test NA Respiration Rate 12 O2 Delivery Device Vent Minute Volume 10.00 Vent Mode A-C Tidal Volume 450 POC PEEP 5 Blood Gas Notified Whom ICU Blood Gas Notified Time 1629 Sodium 144 Potassium 3.1 L Chloride 124 H Carbon Dioxide 14.0 L Anion Gap 6 BUN 34 H Creatinine 2.29 H Estim Creat Clear Calc 26.80 Est GFR (MDRD) Af Amer 37 L Est GFR (MDRD) Non-Af 31 L BUN/Creatinine Ratio 14.8 Glucose 87 Lactic Acid Calcium 7.7 L Phosphorus 3.4 Magnesium Total Bilirubin 0.30 AST 37 ALT 16 Alkaline Phosphatase 151 H Ammonia Troponin I 7.010 H* B-Natriuretic Peptide Total Protein 5.2 L Albumin 1.7 L Globulin 3.5 Albumin/Globulin Ratio 0.5 L TSH U Random Total Protein Ur Random Sodium Urine Creatinine Protein/Creatinin Ratio Urine Potassium Urine Chloride S.aureus Protein A PCR MRSA (PCR) 07/03/19 07/04/19 07/04/19 17:35 04:45 04:45 WBC 32.8 H* RBC 2.89 L Hgb 9.2 L Hct 28.3 L MCV 97.9 H D MCH 31.8 MCHC 32.5 RDW Std Deviation 51.0 H RDW Coeff of [place] 14.2 Plt Count 365 MPV 9.4 Neut % (Auto) Not Reportable Absolute Neuts (auto) 29.2 H Absolute Lymphs (auto) 0.98 Total Counted 100 Neutrophils % (Manual) 81 H Band Neutrophils % 8 H Lymphocytes % (Manual) 3 L Monocytes % (Manual) 8 Diff Path Review Reviewed Platelet Estimate ADEQUATE Hypochromasia RARE Anisocytosis RARE Microcytosis RARE PT INR Specimen Type Sample Site pH Bicarbonate Actual POC Total CO2 Base Excess O2 Saturation O2 % ABG pCO2 ABG pO2 Khang Test Respiration Rate O2 Delivery Device Minute Volume Vent Mode Tidal Volume POC PEEP Blood Gas Notified Whom Blood Gas Notified Time Sodium Potassium Chloride Carbon Dioxide Anion Gap BUN Creatinine Estim Creat Clear Calc Est GFR (MDRD) Af Amer Est GFR (MDRD) Non-Af BUN/Creatinine Ratio Glucose Lactic Acid Calcium Phosphorus Magnesium 2.3 Total Bilirubin AST ALT Alkaline Phosphatase Ammonia Troponin I 11.000 H* B-Natriuretic Peptide Total Protein Albumin Globulin Albumin/Globulin Ratio TSH 0.41 U Random Total Protein Ur Random Sodium Urine Creatinine Protein/Creatinin Ratio Urine Potassium Urine Chloride S.aureus Protein A PCR MRSA (PCR) 07/04/19 07/04/19 07/04/19 04:45 08:15 08:15 WBC RBC Hgb Hct MCV MCH MCHC RDW Std Deviation RDW Coeff of [place] Plt Count MPV Neut % (Auto) Absolute Neuts (auto) Absolute Lymphs (auto) Total Counted Neutrophils % (Manual) Band Neutrophils % Lymphocytes % (Manual) Monocytes % (Manual) Diff Path Review Platelet Estimate Hypochromasia Anisocytosis Microcytosis PT 16.2 H INR 1.3 Specimen Type Sample Site pH Bicarbonate Actual POC Total CO2 Base Excess O2 Saturation O2 % ABG pCO2 ABG pO2 Khang Test Respiration Rate O2 Delivery Device Minute Volume Vent Mode Tidal Volume POC PEEP Blood Gas Notified Whom Blood Gas Notified Time Sodium 147 H Potassium 5.1 Chloride 126 H Carbon Dioxide 13.0 L Anion Gap 8 BUN 52 H Creatinine 3.27 H Estim Creat Clear Calc 18.97 Est GFR (MDRD) Af Amer 25 L Est GFR (MDRD) Non-Af 20 L BUN/Creatinine Ratio 15.9 Glucose 85 Lactic Acid Calcium 8.7 Phosphorus 6.4 H Magnesium Total Bilirubin 0.30 AST 94 H ALT 24 Alkaline Phosphatase 136 H Ammonia Troponin I B-Natriuretic Peptide Total Protein 6.0 L Albumin 1.9 L Globulin 4.1 Albumin/Globulin Ratio 0.5 L TSH U Random Total Protein Ur Random Sodium Urine Creatinine Protein/Creatinin Ratio Urine Potassium Urine Chloride S.aureus Protein A PCR MRSA (PCR) 07/04/19 07/04/19 09:45 09:47 WBC RBC Hgb Hct MCV MCH MCHC RDW Std Deviation RDW Coeff of [place] Plt Count MPV Neut % (Auto) Absolute Neuts (auto) Absolute Lymphs (auto) Total Counted Neutrophils % (Manual) Band Neutrophils % Lymphocytes % (Manual) Monocytes % (Manual) Diff Path Review Platelet Estimate Hypochromasia Anisocytosis Microcytosis PT INR Specimen Type ART Sample Site R Radial pH 7.23 L Bicarbonate Actual 10.3 L POC Total CO2 11 Base Excess -17 L O2 Saturation 98 O2 % 40 ABG pCO2 24.9 L ABG pO2 129 H Khang Test NA Respiration Rate 12 O2 Delivery Device Vent Minute Volume 11.00 Vent Mode A-C Tidal Volume 450 POC PEEP 5 Blood Gas Notified Whom ICU MD Blood Gas Notified Time 946 Sodium Potassium Chloride Carbon Dioxide Anion Gap BUN Creatinine Estim Creat Clear Calc Est GFR (MDRD) Af Amer Est GFR (MDRD) Non-Af BUN/Creatinine Ratio Glucose Lactic Acid Calcium Phosphorus Magnesium Total Bilirubin AST ALT Alkaline Phosphatase Ammonia < 10.0 L Troponin I B-Natriuretic Peptide Total Protein Albumin Globulin Albumin/Globulin Ratio TSH U Random Total Protein Ur Random Sodium Urine Creatinine Protein/Creatinin Ratio Urine Potassium Urine Chloride S.aureus Protein A PCR MRSA (PCR) Assessment/Plan All Active Problems (Last Reviewed 05/31/19 @ 14:31 by Eboni Jacinto) Severe sepsis (Acute) Bilateral pneumonia (Acute) Acute hypoxic respiratory failure (Acute) Acute hypoxemic respiratory failure (Acute) UTI (urinary tract infection) (Acute) Pneumonia (Acute) Pulmonary edema (Acute) Elevated troponin (Acute) Severe protein-calorie malnutrition (Acute) Hypotension (Resolved) Renal insufficiency (Acute) CARLOS EDUARDO (acute kidney injury) (Resolved) Urinary tract infection (Resolved)
--- NOTE | 2019-07-04 12:52 | CASEMGMT ---
Ex- brought in POA form, she is listed as POA. SW spoke w/exwife Dorita at the bedside. SW offered support as Dorita has been caring for pt for the last month. She states pt was at [facility] and when he left came to live w/her. Pt does have a daughter Constance however she is not as involved. Dorita states she helps out her aunt and mother as well. Dorita explains that she and pt have just one daughter Constance, they lost a child in 1990. She states they were enemies when , due to the drug and alcohol use and losing a chile. Dorita states now however they are best friends. Dorita is worried that pt is not going to make it. Supportive listening offered. SW remains available for support to family. ANABEL Hong
[2019-07-04 12:56] LABS: Bedside Glucose 94 mg/dL (70-110)
--- NOTE | 2019-07-04 13:09 | PCM.NTREPORT ---
Nutrition Therapy Report - History Nutrition Services has been consulted to:: Manage enteral nutrition Current diet / nutrition support order:: NPO - Anthropometric Measurements Height:: 5 ft 11 in Weight:: 58 kg Body Mass Index (BMI):: 17.8 - Relevant Labs Relevant Labs:: WBC 32.8 K/mm3 (4.4-11.0) H* 07/04/19 04:45 RBC 2.89 M/mm3 (4.6-6.2) L 07/04/19 04:45 Hgb 9.2 g/dL (13.0-16.5) L 07/04/19 04:45 Hct 28.3 % (40-54) L 07/04/19 04:45 MCV 97.9 fL (80-94) H D 07/04/19 04:45 RDW Std Deviation 51.0 fl (35.1-43.9) H 07/04/19 04:45 Neut % (Auto) 93.1 % (47-70) H 07/03/19 09:00 Lymph % (Auto) 3.6 % (19-41) L 07/03/19 09:00 Absolute Neuts (auto) 29.2 X10^3/uL (2.0-7.7) H 07/04/19 04:45 Absolute Lymphs (auto) 0.25 X10^3/uL (0.83-4.51) L 07/03/19 09:00 Neutrophils % (Manual) 81 % (47-70) H 07/04/19 04:45 Band Neutrophils % 8 % (0-5) H 07/04/19 04:45 Lymphocytes % (Manual) 3 % (19-41) L 07/04/19 04:45 PT 16.2 SECONDS (11.7-14.9) H 07/04/19 08:15 Sodium 147 mmol/L (136-145) H 07/04/19 08:15 Potassium 3.1 mmol/L (3.5-5.1) L 07/03/19 15:20 Chloride 126 mmol/L (98-107) H 07/04/19 08:15 Carbon Dioxide 13.0 mmol/L (21.0-32.0) L 07/04/19 08:15 BUN 52 mg/dL (7-18) H 07/04/19 08:15 Creatinine 3.27 mg/dL (0.70-1.30) H 07/04/19 08:15 Est GFR (MDRD) Af Amer 25 mL/min (>60) L 07/04/19 08:15 Est GFR (MDRD) Non-Af 20 mL/min (>60) L 07/04/19 08:15 Lactic Acid 2.2 mmol/L (0.4-1.9) H* 07/03/19 09:26 Calcium 7.7 mg/dL (8.5-10.1) L 07/03/19 15:20 Phosphorus 6.4 mg/dL (2.5-4.9) H 07/04/19 04:45 Magnesium 1.5 mg/dL (1.6-2.6) L 07/03/19 09:00 AST 94 U/L (15-37) H 07/04/19 08:15 Alkaline Phosphatase 136 U/L (45-117) H 07/04/19 08:15 Ammonia < 10.0 umol/L (11-32) L 07/04/19 09:45 Troponin I 11.000 ng/mL (<0.045) H* 07/03/19 17:35 B-Natriuretic Peptide 497.6 pg/mL (0-100) H 07/03/19 09:00 Total Protein 6.0 g/dL (6.4-8.2) L 07/04/19 08:15 Albumin 1.9 g/dL (3.2-5.0) L 07/04/19 08:15 Globulin 4.5 g/dL (2.2-4.2) H 07/03/19 09:00 Albumin/Globulin Ratio 0.5 RATIO (0.9-2.4) L 07/04/19 08:15 - Assessment Food / Nutrition-Related History:: Discussed in ICU rounds. Pt remains intubated at this time. Dr. Moscoso verbal consent to inititate TF this day. Pt w/ wt increase of 0.6 kg since previous review, CBW 58 kg. Wt hx per EMR indicates: 08/2018 wt~160 lbs. 02/2019 wt~105 lbs, Admit wt today~126 lbs. Calculated wt loss in the past 9-10 months ~20-21% significant for malnutrition. Pt w/ visible muscle/fat depletion and dx of sever pro/tyler malnutrition. Suspect intake is compromised AEB BMI 17.7, pt muscle/fat depletion, hx of malnutrition. [ End ] - Nutrition Diagnosis Problem / Etiology / Signs & Symptoms (PES):: Severe malnutrition in the context of chronic illness related to inadequate protein-energy intake as evidenced by 34 lb/21% wt loss x 10 months, loss of muscle and loss of subcutaneous fat. Evidence of Malnutrition Exists:: Yes Severe PCM:: Chronic Illness - Nutrition Intervention Nutrition Prescription:: 7080-6419 calories, 60-75 gram protein - Food / Nutrient Delivery Interventions Summary of nutrition intervention:: Given hx of severe protein/calorie malnutrition, monitor for signs and symptoms of refeeding syndrome. Nutrition support ordered as / adjusted to:: Rec Vital AF 1.2 [place] @ 20 ml/hr and increase as tolerated by 10 ml/hr Q 6-8 hours to goal rate 40 ml/hr. Suggest 100 ml water flush Q 6 hours. TF & flushes as recommended to provide 1152 kcal, 72 gm protein and 1179 ml free water. Upon extubation, recommend advance diet as tolerated to low salt with texture/consistency as per [employer]; will need ONS when PO nutrition indicated. Nutrition education provided?: No - MNT Monitoring Further MNT monitoring and evaluation required?: Yes MNT Follow-up in:: 3-5 days - Please call RDN at [phone] with question/concerns.
[2019-07-04 14:50] LABS: Bedside Glucose 100 mg/dL (70-110)
--- NOTE | 2019-07-04 14:58 | NURSING ---
wound photo:sacrum
--- NOTE | 2019-07-04 15:22 | CASEMGMT ---
RN SEAN Note: returned call to SEAN Melendez with [facility]. Message left with call back information CM needs to speak with [facility] RN CM. Ivan TABORN RN ACM
--- NOTE | 2019-07-04 16:21 | PCM.OPRPT ---
Report of Operation Surgery/Procedure Performed:: Temporary dialysis catheter insertion Description of Surgical Findings:: Prior hemodialysis catheter insertion Indication: Hemodialysis Procedure: A time-out was completed to verify correct patient, indication, medication allergies, procedure, coagulation studies, informed consent signed, and equipment needed. The patient was placed in the supine position for a central line placement to the left IJ vein. The patients left neck was prepped using chlorhexidine and a full body sterile drape was applied. 1% lidocaine was used to anesthetize the surrounding skin. A 12fr 20 cm temporary hemodialysis catheter introduced into the internal jugular vein using the modified Seldinger technique with the assistance of ultrasound. The catheter was threaded smoothly over the guidewire, the guidewire was removed easily, nonpulsatile blood returned. All ports were aspirated of air and flushed with sterile saline, then locked with you 1000 heparin 1.4 cc to each port. The catheter was sutured in place and covered with an occlusive dressing impregnated with chlorhexidine. Post-procedure: The patient tolerated the procedure well. Vital signs remained stable. EBL 5 cc. No complications. Chest X Ray ordered to confirm tip placement and the absence of pneumothorax. Procedures: [id number] Insert Non-tunnel CV Cath
--- NOTE | 2019-07-04 16:25 | RAD_ITS ---
STUDY: X-RAY CHEST REASON FOR EXAM: Male, 64 years old. DIALYSIS CATH PLACEMENT TECHNIQUE: Single AP portable view of the chest. COMPARISON: 07/03/2019. FINDINGS: Patient has a new dialysis catheter through the left IJ terminating in the lower SVC. No pneumothorax. All other lines and tubes are stable and in satisfactory positions. Mild atelectasis or infiltrate in the right lung base, continuing to improve. Resolved atelectasis in the left lung base since previous exam. No gross effusions. No other changes. RAD/CXR for Line Placement IMPRESSION: Left IJ dialysis catheter terminates in the lower SVC. No pneumothorax. Improving aeration in both lung bases. No other changes. Electronically Signed: Tony Ewing MD at 16:42 EDT , Service support ,
[2019-07-04 16:30] LABS: M R Staph aureus DNA By PCR Negative (Negative); Probe Check PASS; Specimen Processing Control PASS
[2019-07-04] MEDS: Aspirin 81 MG TAB.CHEW GT (16:32)
[2019-07-04] MEDS: Enoxaparin 30 MG/0.3 ML Syringe SC (16:32)
[2019-07-04] MEDS: Clopidogrel Bisulfate 75 MG Tablet GT (16:32)
[2019-07-04 18:45] LABS: Bedside Glucose 123 mg/dL (70-110)
--- NOTE | 2019-07-04 21:24 | DIALYSIS ---
HD x3 hours ended at 2103 (tx ended 12 mins early), first dialysis treatment, tolerated well except for intermittent heart rate of 170s-180s which started after 1hr 45mins of dialysis, UF -100mL, gain of 100mL, accessed via temporary left neck dialysis catheter, worked well with lines reversed, arterial port has sticky (positional) pull, HepB labs drawn and sent, tx ended 12 mins early due to heart rate 170s-180s for the approx 8th time but also now hypotensive, amiodarone drip on order but not yet started
[2019-07-04] MEDS: Amiodarone 360 MG in Dextrose 5% Viaflo Bag 192.8 ML 33.3 MG CONT INF (22:51)
[2019-07-04] MEDS: Heparin 10,000 UNITS/10 ML Vial IV (22:53)
[2019-07-04] MEDS: Metoprolol Tartrate 25 MG Tablet GT (23:00)
[2019-07-04] MEDS: Insulin Lispro 100 UNIT/ML INSULN.PEN SC (23:20)
[2019-07-04 23:21] LABS: Bedside Glucose 151 mg/dL (70-110)
[2019-07-05] VITALS (64 sets, daily range): BP systolic 42–163; BP diastolic 10–110; PULSE 0–115; RESP 12–34; TEMP 36.3–38.8; O2SAT 85–100
[2019-07-05 02:16] LABS: Bedside Glucose 112 mg/dL (70-110)
[2019-07-05] MEDS: Ipratropium 0.5 MG/2.5 ML SOLUTION INHALATION ×2 (03:02→07:34)
[2019-07-05 04:40] LABS: Absolute Lymphocyte Count 1.55 X10^3/uL (0.83-4.51); Absolute Neutrophil Count 27.6 X10^3/uL (2.0-7.7); Basophil# 0.05 X10^3/uL; Basophil% 0.2 % (0-1); Eosinophil# 0.02 X10^3/uL; Eosinophils% 0.1 % (0-5); Hematocrit 26.1 % (40-54); Hemoglobin 8.9 g/dL (13.0-16.5); Lymphocyte # 1.55 X10^3/ul (4.0); Lymphocyte % 4.9 % (19-41); Mean Corp Hgb Conc 34.1 g/dL (32-36); Mean Corpuscular Volume 93.9 fL (80-94); Mean Platelet Vol. 9.2 fl (6.2-12.0); Monocyte# 1.11 X10^3/uL; Monocyte% 3.5 % (0-10); NRBC Flagged by Analyzer 0 % (0-5); Neutrophil # 27.62 X10^3/uL (2.7-7.7); Neutrophil % 87.3 % (47-70); POSITIVE COUNT YES; POSITIVE DIFFERENTIAL YES; POSITIVE MORPHOLOGY YES; Platelet Count 286 K/mm3 (150-450); RBC Distribution Width CV 13.8 % (11.6-14.6); RBC Distribution Width SD 47.3 fl (35.1-43.9); Red Blood Count 2.78 M/mm3 (4.6-6.2)
[2019-07-05 04:42] LABS: Differential Indicated SCAN CRITERIA MET; White Blood Count 31.6 K/mm3 (4.4-11.0)
[2019-07-05] MEDS: Amiodarone 360 MG in Dextrose 5% Viaflo Bag 192.8 ML 16.7 MG CONT INF (04:55)
--- NOTE | 2019-07-05 05:12 | NURSING ---
Pt noted to have rapidly increasing mottling of extremities: over knees and up to elbows and spastic muscle jerking. notified.
[2019-07-05 05:32] LABS: Differential Comment SCANNED; Platelet Estimate ADEQUATE (ADEQ)
[2019-07-05 05:39] LABS: Anion Gap 21 (5-15); BUN 33 mg/dL (7-18); BUN/Creat Ratio 11.7 RATIO (10-20); Calcium,Total 7.4 mg/dL (8.5-10.1); Chloride 101 mmol/L (98-107); Creatinine, Serum 2.81 mg/dL (0.70-1.30); EST Glomerular Filtration Rate 24 mL/min (>60); Est Glom Filt Rate - Afr Amer 29 mL/min (>60); Estimated Creatinine Clearance 22.07 ml/min; Glucose 59 mg/dL (74-106); Magnesium 2.5 mg/dL (1.6-2.6); Potassium 4.9 mmol/L (3.5-5.1); Sodium Level 138 mmol/L (136-145); Vancomycin, Random Level 12.3 ug/mL (0.0-15.0)
[2019-07-05 05:50] LABS: Phosphorus 7.1 mg/dL (2.5-4.9)
[2019-07-05] MEDS: 0.9% Saline Lock 10 ML Syringe IV ×3 (06:12→13:55)
[2019-07-05] MEDS: Dextrose 50%-Water 25 GM/50 ML DISP.SYRIN IV ×4 (06:16→13:20)
--- NOTE | 2019-07-05 06:46 | PCM.PN.INT ---
Subjective: The patient was seen and examined at the bedside this morning. Events from the last 24 hours have been reviewed. The patient was febrile last evening with a T-max of 101.4 ?F. He remains tachypneic this morning but is maintaining appropriate oxygen saturations on assist control mode of mechanical ventilation with an FiO2 requirement of 30%. The patient did have a left temporary hemodialysis line placed yesterday to facilitate treatment. During the patient's initial dialysis session, he developed atrial fibrillation with a rapid ventricular rate. The patient had to be placed on amiodarone as a consequence of this. This morning, the patient remains on Levophed to maintain hemodynamic stability at 10 mcg/min. Unfortunately, the patient remains completely unresponsive, despite the fact that he has been off of all forms of sedation x24 hours. White blood cell count remains significantly elevated at 32,000 this morning. The patient is currently documented to be overall net +3.6 L for the hospital admission. Arterial Line Indication: Hemodynamic Monitoring A time-out was completed verifying correct patient, procedure, site, positioning, and special equipment if applicable. The patient's right antecubital fossa was prepped and draped in the sterile fashion. An 18-gauge arrow arterial line was introduced into the brachial artery. The catheter was threaded over the guidewire and the needle was removed with the appropriate pulsatile blood return. The catheter was then sutured in place to the skin and a sterile dressing applied. Perfusion to the extremity distal to the point of catheter insertion was checked and found to be adequate. ULTRASOUND GUIDANCE STATEMENT (Vascular Access): I perform ultrasound image acquisition and interpretation for needle placement during this procedure. The vessel was identified and found to be free of thrombosis by compression technique. A safe point of entry was marked at the skin and then angle for access was determined. The needle was guided by obtaining free-flowing fluid and by real-time visualization. Objective: The patient's most recent lab work, culture data and imaging studies have all been personally reviewed. Head CT completed on July 03 revealed chronic involutional changes of the brain with bilateral maxillary sinusitis. Surface echocardiogram revealed a mildly dilated LV with severe segmental systolic dysfunction and an ejection fraction of 20%. Right ventricular systolic pressure was estimated to be 48 mmHg. Urine culture is positive for a gram-negative flaco, lactose hydrogen cell tender along with possible Pseudomonas. Strep and urine Legionella antigens were negative. Respiratory viral panel was negative. Sputum culture appears to be normal respiratory cynthia. General: - - Remains intubated and mechanically ventilated. Quite ill and toxic in appearance HEENT: Atraumatic, PERRLA, Normocephalic Oral: Dry Mucosa, - - Endotracheal and OG tubes in place Neck: Supple, No Nodes, Trachea Midline, - - Right IJ triple-lumen catheter and left temporary hemodialysis catheter in place Lungs: Diminished, Tachypneic, - - Agonal appearing respirations Cardiovascular: Normal S1, Normal S2, No murmurs, Tachycardic Abdomen: Bowel Sounds Present, Soft, Non Tender Extremities: No clubbing, No cyanosis Skin: No breakdown Musculoskeletal: Cachexia, Muscle Wasting Lymphatic: No Cervical, Supraclavicular, or Inguinal Adenopathy Neurological: - - Patient is comatose and nonresponsive to verbal or painful stimulation. Vital Signs Temp Pulse Resp BP Pulse Ox 98.9 F 107 H 24 H 81/63 L 99 07/05/19 00:00 07/05/19 04:00 07/05/19 03:45 07/05/19 03:45 07/05/19 03:45 Oxygen Flow Rate (L/min) 2 Oxygen Delivery Method Mechanical Ventilator Weight: 127 lb 13.89 oz Body Mass Index (BMI) 17.8 Finger Stick Blood Glucose 88 Intake and Output for Last 24 Hours 07/03/19 07/04/19 07/05/19 23:59 23:59 23:59 Intake Total 3278.90 / 3293.07 965.09 / 974.49 306.40 / 306.40 Output Total 100 / 500 1120 / 1120 Balance 3178.90 / 2793.07 -154.91 / -145.51 306.40 / 306.40 Labs (Last 48 Hours) 07/03/19 07/03/19 07/03/19 09:00 09:00 09:00 WBC 6.9 RBC 3.77 L Hgb 11.9 L Hct 34.8 L MCV 92.3 MCH 31.6 MCHC 34.2 RDW Std Deviation 44.3 H RDW Coeff of [place] 13.2 Plt Count 398 MPV 9.2 Immature Gran % (Auto) 0.300 Neut % (Auto) 93.1 H Lymph % (Auto) 3.6 L [place] % (Auto) 2.3 Eos % (Auto) 0.4 Baso % (Auto) 0.3 Absolute Neuts (auto) 6.4 Absolute Lymphs (auto) 0.25 L Total Counted Neutrophils % (Manual) Band Neutrophils % Lymphocytes % (Manual) Monocytes % (Manual) Nucleated RBC % 0 Differential Comment SCANNED Diff Path Review Platelet Estimate Hypochromasia Anisocytosis Microcytosis PT 13.7 INR 1.1 APTT 29.5 Specimen Type Sample Site pH Bicarbonate Actual POC Total CO2 Base Excess O2 Saturation O2 % ABG pCO2 ABG pO2 Khang Test Respiration Rate O2 Delivery Device Liter Flow Minute Volume Vent Mode Tidal Volume POC PEEP Blood Gas Notified Whom Blood Gas Notified Time Sodium 140 Potassium 3.3 L Chloride 120 H Carbon Dioxide 13.0 L Anion Gap 7 BUN 36 H Creatinine 2.18 H Estim Creat Clear Calc 28.31 Est GFR (MDRD) Af Amer 40 L Est GFR (MDRD) Non-Af 33 L BUN/Creatinine Ratio 16.5 Glucose 91 Lactic Acid Calcium 9.2 Phosphorus Magnesium 1.5 L Total Bilirubin 0.20 AST 23 ALT 20 Alkaline Phosphatase 232 H Ammonia Troponin I 0.751 H* B-Natriuretic Peptide Total Protein 6.8 Albumin 2.3 L Globulin 4.5 H Albumin/Globulin Ratio 0.5 L TSH Urine Color Urine Clarity Urine pH Ur Specific [place] Urine Protein Urine Glucose (UA) Urine Ketones Urine Occult Blood Urine Nitrite Urine Bilirubin Urine Urobilinogen Ur Leukocyte Esterase Urine RBC Urine WBC Ur Squamous Epith Cells Urine Bacteria Urine Mucus U Random Total Protein Ur Random Sodium Urine Creatinine Protein/Creatinin Ratio Urine Potassium Urine Chloride Random Vancomycin Hep Bs Antigen Hep Bs Antibody Hep B Core Total Ab S.aureus Protein A PCR MRSA (PCR) POC Glucose 07/03/19 07/03/19 07/03/19 09:00 09:26 09:33 WBC RBC Hgb Hct MCV MCH MCHC RDW Std Deviation RDW Coeff of [place] Plt Count MPV Immature Gran % (Auto) Neut % (Auto) Lymph % (Auto) [place] % (Auto) Eos % (Auto) Baso % (Auto) Absolute Neuts (auto) Absolute Lymphs (auto) Total Counted Neutrophils % (Manual) Band Neutrophils % Lymphocytes % (Manual) Monocytes % (Manual) Nucleated RBC % Differential Comment Diff Path Review Platelet Estimate Hypochromasia Anisocytosis Microcytosis PT INR APTT Specimen Type ART Sample Site R Radial pH 7.36 Bicarbonate Actual 8.7 L POC Total CO2 9 Base Excess -17 L O2 Saturation 97 O2 % ABG pCO2 15.4 L* ABG pO2 94 Khang Test POS Respiration Rate O2 Delivery Device Nasal Can Liter Flow 2.0 Minute Volume Vent Mode Tidal Volume POC PEEP Blood Gas Notified Whom ED MD Blood Gas Notified Time 927 Sodium Potassium Chloride Carbon Dioxide Anion Gap BUN Creatinine Estim Creat Clear Calc Est GFR (MDRD) Af Amer Est GFR (MDRD) Non-Af BUN/Creatinine Ratio Glucose Lactic Acid 2.2 H* Calcium Phosphorus Magnesium Total Bilirubin AST ALT Alkaline Phosphatase Ammonia Troponin I B-Natriuretic Peptide 497.6 H Total Protein Albumin Globulin Albumin/Globulin Ratio TSH Urine Color Urine Clarity Urine pH Ur Specific [place] Urine Protein Urine Glucose (UA) Urine Ketones Urine Occult Blood Urine Nitrite Urine Bilirubin Urine Urobilinogen Ur Leukocyte Esterase Urine RBC Urine WBC Ur Squamous Epith Cells Urine Bacteria Urine Mucus U Random Total Protein Ur Random Sodium Urine Creatinine Protein/Creatinin Ratio Urine Potassium Urine Chloride Random Vancomycin Hep Bs Antigen Hep Bs Antibody Hep B Core Total Ab S.aureus Protein A PCR MRSA (PCR) POC Glucose 07/03/19 07/03/19 07/03/19 10:30 10:30 10:30 WBC RBC Hgb Hct MCV MCH MCHC RDW Std Deviation RDW Coeff of [place] Plt Count MPV Immature Gran % (Auto) Neut % (Auto) Lymph % (Auto) [place] % (Auto) Eos % (Auto) Baso % (Auto) Absolute Neuts (auto) Absolute Lymphs (auto) Total Counted Neutrophils % (Manual) Band Neutrophils % Lymphocytes % (Manual) Monocytes % (Manual) Nucleated RBC % Differential Comment Diff Path Review Platelet Estimate Hypochromasia Anisocytosis Microcytosis PT INR APTT Specimen Type Sample Site pH Bicarbonate Actual POC Total CO2 Base Excess O2 Saturation O2 % ABG pCO2 ABG pO2 Khang Test Respiration Rate O2 Delivery Device Liter Flow Minute Volume Vent Mode Tidal Volume POC PEEP Blood Gas Notified Whom Blood Gas Notified Time Sodium Potassium Chloride Carbon Dioxide Anion Gap BUN Creatinine Estim Creat Clear Calc Est GFR (MDRD) Af Amer Est GFR (MDRD) Non-Af BUN/Creatinine Ratio Glucose Lactic Acid Calcium Phosphorus Magnesium Total Bilirubin AST ALT Alkaline Phosphatase Ammonia Troponin I B-Natriuretic Peptide Total Protein Albumin Globulin Albumin/Globulin Ratio TSH Urine Color Brown Urine Clarity Turbid Urine pH 6.5 Ur Specific [place] 1.025 Urine Protein 100 H Urine Glucose (UA) Normal Urine Ketones 5 H Urine Occult Blood 250 H Urine Nitrite Negative Urine Bilirubin Negative Urine Urobilinogen Normal Ur Leukocyte Esterase 500 H Urine RBC 0-5 SEEN Urine WBC >100 SEEN Ur Squamous Epith Cells 0 SEEN Urine Bacteria 1+ Urine Mucus 0 SEEN U Random Total Protein 1158.8 H Ur Random Sodium Urine Creatinine 55.60 53.80 Protein/Creatinin Ratio 91419 H Urine Potassium Urine Chloride Random Vancomycin Hep Bs Antigen Hep Bs Antibody Hep B Core Total Ab S.aureus Protein A PCR MRSA (PCR) POC Glucose 07/03/19 07/03/19 07/03/19 10:30 13:45 15:10 WBC RBC Hgb Hct MCV MCH MCHC RDW Std Deviation RDW Coeff of [place] Plt Count MPV Immature Gran % (Auto) Neut % (Auto) Lymph % (Auto) [place] % (Auto) Eos % (Auto) Baso % (Auto) Absolute Neuts (auto) Absolute Lymphs (auto) Total Counted Neutrophils % (Manual) Band Neutrophils % Lymphocytes % (Manual) Monocytes % (Manual) Nucleated RBC % Differential Comment Diff Path Review Platelet Estimate Hypochromasia Anisocytosis Microcytosis PT INR APTT Specimen Type Sample Site pH Bicarbonate Actual POC Total CO2 Base Excess O2 Saturation O2 % ABG pCO2 ABG pO2 Khang Test Respiration Rate O2 Delivery Device Liter Flow Minute Volume Vent Mode Tidal Volume POC PEEP Blood Gas Notified Whom Blood Gas Notified Time Sodium Potassium Chloride Carbon Dioxide Anion Gap BUN Creatinine Estim Creat Clear Calc Est GFR (MDRD) Af Amer Est GFR (MDRD) Non-Af BUN/Creatinine Ratio Glucose Lactic Acid 1.5 Calcium Phosphorus Magnesium Total Bilirubin AST ALT Alkaline Phosphatase Ammonia Troponin I B-Natriuretic Peptide Total Protein Albumin Globulin Albumin/Globulin Ratio TSH Urine Color Urine Clarity Urine pH Ur Specific [place] Urine Protein Urine Glucose (UA) Urine Ketones Urine Occult Blood Urine Nitrite Urine Bilirubin Urine Urobilinogen Ur Leukocyte Esterase Urine RBC Urine WBC Ur Squamous Epith Cells Urine Bacteria Urine Mucus U Random Total Protein Ur Random Sodium 74 Urine Creatinine Protein/Creatinin Ratio Urine Potassium 36.0 Urine Chloride 71 Random Vancomycin Hep Bs Antigen Hep Bs Antibody Hep B Core Total Ab S.aureus Protein A PCR NEGATIVE MRSA (PCR) Negative POC Glucose 07/03/19 07/03/19 07/03/19 15:20 15:20 16:30 WBC RBC Hgb Hct MCV MCH MCHC RDW Std Deviation RDW Coeff of [place] Plt Count MPV Immature Gran % (Auto) Neut % (Auto) Lymph % (Auto) [place] % (Auto) Eos % (Auto) Baso % (Auto) Absolute Neuts (auto) Absolute Lymphs (auto) Total Counted Neutrophils % (Manual) Band Neutrophils % Lymphocytes % (Manual) Monocytes % (Manual) Nucleated RBC % Differential Comment Diff Path Review Platelet Estimate Hypochromasia Anisocytosis Microcytosis PT INR APTT Specimen Type ART Sample Site R Brachial pH 7.16 L* Bicarbonate Actual 10.9 L POC Total CO2 12 Base Excess -18 L O2 Saturation 91 L O2 % 50 ABG pCO2 30.7 L ABG pO2 78 Khang Test NA Respiration Rate 12 O2 Delivery Device Vent Liter Flow Minute Volume 10.00 Vent Mode A-C Tidal Volume 450 POC PEEP 5 Blood Gas Notified Whom ICU Blood Gas Notified Time 1629 Sodium 144 Potassium 3.1 L Chloride 124 H Carbon Dioxide 14.0 L Anion Gap 6 BUN 34 H Creatinine 2.29 H Estim Creat Clear Calc 26.80 Est GFR (MDRD) Af Amer 37 L Est GFR (MDRD) Non-Af 31 L BUN/Creatinine Ratio 14.8 Glucose 87 Lactic Acid Calcium 7.7 L Phosphorus 3.4 Magnesium Total Bilirubin 0.30 AST 37 ALT 16 Alkaline Phosphatase 151 H Ammonia Troponin I 7.010 H* B-Natriuretic Peptide Total Protein 5.2 L Albumin 1.7 L Globulin 3.5 Albumin/Globulin Ratio 0.5 L TSH Urine Color Urine Clarity Urine pH Ur Specific [place] Urine Protein Urine Glucose (UA) Urine Ketones Urine Occult Blood Urine Nitrite Urine Bilirubin Urine Urobilinogen Ur Leukocyte Esterase Urine RBC Urine WBC Ur Squamous Epith Cells Urine Bacteria Urine Mucus U Random Total Protein Ur Random Sodium Urine Creatinine Protein/Creatinin Ratio Urine Potassium Urine Chloride Random Vancomycin Hep Bs Antigen Hep Bs Antibody Hep B Core Total Ab S.aureus Protein A PCR MRSA (PCR) POC Glucose 07/03/19 07/03/19 07/03/19 17:29 17:35 22:40 WBC RBC Hgb Hct MCV MCH MCHC RDW Std Deviation RDW Coeff of [place] Plt Count MPV Immature Gran % (Auto) Neut % (Auto) Lymph % (Auto) [place] % (Auto) Eos % (Auto) Baso % (Auto) Absolute Neuts (auto) Absolute Lymphs (auto) Total Counted Neutrophils % (Manual) Band Neutrophils % Lymphocytes % (Manual) Monocytes % (Manual) Nucleated RBC % Differential Comment Diff Path Review Platelet Estimate Hypochromasia Anisocytosis Microcytosis PT INR APTT Specimen Type Sample Site pH Bicarbonate Actual POC Total CO2 Base Excess O2 Saturation O2 % ABG pCO2 ABG pO2 Khang Test Respiration Rate O2 Delivery Device Liter Flow Minute Volume Vent Mode Tidal Volume POC PEEP Blood Gas Notified Whom Blood Gas Notified Time Sodium Potassium Chloride Carbon Dioxide Anion Gap BUN Creatinine Estim Creat Clear Calc Est GFR (MDRD) Af Amer Est GFR (MDRD) Non-Af BUN/Creatinine Ratio Glucose Lactic Acid Calcium Phosphorus Magnesium Total Bilirubin AST ALT Alkaline Phosphatase Ammonia Troponin I 11.000 H* B-Natriuretic Peptide Total Protein Albumin Globulin Albumin/Globulin Ratio TSH Urine Color Urine Clarity Urine pH Ur Specific [place] Urine Protein Urine Glucose (UA) Urine Ketones Urine Occult Blood Urine Nitrite Urine Bilirubin Urine Urobilinogen Ur Leukocyte Esterase Urine RBC Urine WBC Ur Squamous Epith Cells Urine Bacteria Urine Mucus U Random Total Protein Ur Random Sodium Urine Creatinine Protein/Creatinin Ratio Urine Potassium Urine Chloride Random Vancomycin Hep Bs Antigen Hep Bs Antibody Hep B Core Total Ab S.aureus Protein A PCR MRSA (PCR) POC Glucose 82 69 L 07/03/19 07/04/19 07/04/19 23:05 01:37 04:43 WBC RBC Hgb Hct MCV MCH MCHC RDW Std Deviation RDW Coeff of [place] Plt Count MPV Immature Gran % (Auto) Neut % (Auto) Lymph % (Auto) [place] % (Auto) Eos % (Auto) Baso % (Auto) Absolute Neuts (auto) Absolute Lymphs (auto) Total Counted Neutrophils % (Manual) Band Neutrophils % Lymphocytes % (Manual) Monocytes % (Manual) Nucleated RBC % Differential Comment Diff Path Review Platelet Estimate Hypochromasia Anisocytosis Microcytosis PT INR APTT Specimen Type Sample Site pH Bicarbonate Actual POC Total CO2 Base Excess O2 Saturation O2 % ABG pCO2 ABG pO2 Khang Test Respiration Rate O2 Delivery Device Liter Flow Minute Volume Vent Mode Tidal Volume POC PEEP Blood Gas Notified Whom Blood Gas Notified Time Sodium Potassium Chloride Carbon Dioxide Anion Gap BUN Creatinine Estim Creat Clear Calc Est GFR (MDRD) Af Amer Est GFR (MDRD) Non-Af BUN/Creatinine Ratio Glucose Lactic Acid Calcium Phosphorus Magnesium Total Bilirubin AST ALT Alkaline Phosphatase Ammonia Troponin I B-Natriuretic Peptide Total Protein Albumin Globulin Albumin/Globulin Ratio TSH Urine Color Urine Clarity Urine pH Ur Specific [place] Urine Protein Urine Glucose (UA) Urine Ketones Urine Occult Blood Urine Nitrite Urine Bilirubin Urine Urobilinogen Ur Leukocyte Esterase Urine RBC Urine WBC Ur Squamous Epith Cells Urine Bacteria Urine Mucus U Random Total Protein Ur Random Sodium Urine Creatinine Protein/Creatinin Ratio Urine Potassium Urine Chloride Random Vancomycin Hep Bs Antigen Hep Bs Antibody Hep B Core Total Ab S.aureus Protein A PCR MRSA (PCR) POC Glucose 139 H 91 90 07/04/19 07/04/19 07/04/19 04:45 04:45 04:45 WBC 32.8 H* RBC 2.89 L Hgb 9.2 L Hct 28.3 L MCV 97.9 H D MCH 31.8 MCHC 32.5 RDW Std Deviation 51.0 H RDW Coeff of [place] 14.2 Plt Count 365 MPV 9.4 Immature Gran % (Auto) Neut % (Auto) Not Reportable Lymph % (Auto) [place] % (Auto) Eos % (Auto) Baso % (Auto) Absolute Neuts (auto) 29.2 H Absolute Lymphs (auto) 0.98 Total Counted 100 Neutrophils % (Manual) 81 H Band Neutrophils % 8 H Lymphocytes % (Manual) 3 L Monocytes % (Manual) 8 Nucleated RBC % Differential Comment Diff Path Review Reviewed Platelet Estimate ADEQUATE Hypochromasia RARE Anisocytosis RARE Microcytosis RARE PT INR APTT Specimen Type Sample Site pH Bicarbonate Actual POC Total CO2 Base Excess O2 Saturation O2 % ABG pCO2 ABG pO2 Khang Test Respiration Rate O2 Delivery Device Liter Flow Minute Volume Vent Mode Tidal Volume POC PEEP Blood Gas Notified Whom Blood Gas Notified Time Sodium Potassium Chloride Carbon Dioxide Anion Gap BUN Creatinine Estim Creat Clear Calc Est GFR (MDRD) Af Amer Est GFR (MDRD) Non-Af BUN/Creatinine Ratio Glucose Lactic Acid Calcium Phosphorus 6.4 H Magnesium 2.3 Total Bilirubin AST ALT Alkaline Phosphatase Ammonia Troponin I B-Natriuretic Peptide Total Protein Albumin Globulin Albumin/Globulin Ratio TSH 0.41 Urine Color Urine Clarity Urine pH Ur Specific [place] Urine Protein Urine Glucose (UA) Urine Ketones Urine Occult Blood Urine Nitrite Urine Bilirubin Urine Urobilinogen Ur Leukocyte Esterase Urine RBC Urine WBC Ur Squamous Epith Cells Urine Bacteria Urine Mucus U Random Total Protein Ur Random Sodium Urine Creatinine Protein/Creatinin Ratio Urine Potassium Urine Chloride Random Vancomycin Hep Bs Antigen Hep Bs Antibody Hep B Core Total Ab S.aureus Protein A PCR MRSA (PCR) POC Glucose 07/04/19 07/04/19 07/04/19 05:50 08:15 08:15 WBC RBC Hgb Hct MCV MCH MCHC RDW Std Deviation RDW Coeff of [place] Plt Count MPV Immature Gran % (Auto) Neut % (Auto) Lymph % (Auto) [place] % (Auto) Eos % (Auto) Baso % (Auto) Absolute Neuts (auto) Absolute Lymphs (auto) Total Counted Neutrophils % (Manual) Band Neutrophils % Lymphocytes % (Manual) Monocytes % (Manual) Nucleated RBC % Differential Comment Diff Path Review Platelet Estimate Hypochromasia Anisocytosis Microcytosis PT 16.2 H INR 1.3 APTT Specimen Type Sample Site pH Bicarbonate Actual POC Total CO2 Base Excess O2 Saturation O2 % ABG pCO2 ABG pO2 Khang Test Respiration Rate O2 Delivery Device Liter Flow Minute Volume Vent Mode Tidal Volume POC PEEP Blood Gas Notified Whom Blood Gas Notified Time Sodium 147 H Potassium 5.1 Chloride 126 H Carbon Dioxide 13.0 L Anion Gap 8 BUN 52 H Creatinine 3.27 H Estim Creat Clear Calc 18.97 Est GFR (MDRD) Af Amer 25 L Est GFR (MDRD) Non-Af 20 L BUN/Creatinine Ratio 15.9 Glucose 85 Lactic Acid Calcium 8.7 Phosphorus Magnesium Total Bilirubin 0.30 AST 94 H ALT 24 Alkaline Phosphatase 136 H Ammonia Troponin I B-Natriuretic Peptide Total Protein 6.0 L Albumin 1.9 L Globulin 4.1 Albumin/Globulin Ratio 0.5 L TSH Urine Color Urine Clarity Urine pH Ur Specific [place] Urine Protein Urine Glucose (UA) Urine Ketones Urine Occult Blood Urine Nitrite Urine Bilirubin Urine Urobilinogen Ur Leukocyte Esterase Urine RBC Urine WBC Ur Squamous Epith Cells Urine Bacteria Urine Mucus U Random Total Protein Ur Random Sodium Urine Creatinine Protein/Creatinin Ratio Urine Potassium Urine Chloride Random Vancomycin Hep Bs Antigen Hep Bs Antibody Hep B Core Total Ab S.aureus Protein A PCR MRSA (PCR) POC Glucose 85 07/04/19 07/04/19 07/04/19 08:50 09:45 09:47 WBC RBC Hgb Hct MCV MCH MCHC RDW Std Deviation RDW Coeff of [place] Plt Count MPV Immature Gran % (Auto) Neut % (Auto) Lymph % (Auto) [place] % (Auto) Eos % (Auto) Baso % (Auto) Absolute Neuts (auto) Absolute Lymphs (auto) Total Counted Neutrophils % (Manual) Band Neutrophils % Lymphocytes % (Manual) Monocytes % (Manual) Nucleated RBC % Differential Comment Diff Path Review Platelet Estimate Hypochromasia Anisocytosis Microcytosis PT INR APTT Specimen Type ART Sample Site R Radial pH 7.23 L Bicarbonate Actual 10.3 L POC Total CO2 11 Base Excess -17 L O2 Saturation 98 O2 % 40 ABG pCO2 24.9 L ABG pO2 129 H Khang Test NA Respiration Rate 12 O2 Delivery Device Vent Liter Flow Minute Volume 11.00 Vent Mode A-C Tidal Volume 450 POC PEEP 5 Blood Gas Notified Whom ICU MD Blood Gas Notified Time 946 Sodium Potassium Chloride Carbon Dioxide Anion Gap BUN Creatinine Estim Creat Clear Calc Est GFR (MDRD) Af Amer Est GFR (MDRD) Non-Af BUN/Creatinine Ratio Glucose Lactic Acid Calcium Phosphorus Magnesium Total Bilirubin AST ALT Alkaline Phosphatase Ammonia < 10.0 L Troponin I B-Natriuretic Peptide Total Protein Albumin Globulin Albumin/Globulin Ratio TSH Urine Color Urine Clarity Urine pH Ur Specific [place] Urine Protein Urine Glucose (UA) Urine Ketones Urine Occult Blood Urine Nitrite Urine Bilirubin Urine Urobilinogen Ur Leukocyte Esterase Urine RBC Urine WBC Ur Squamous Epith Cells Urine Bacteria Urine Mucus U Random Total Protein Ur Random Sodium Urine Creatinine Protein/Creatinin Ratio Urine Potassium Urine Chloride Random Vancomycin Hep Bs Antigen Hep Bs Antibody Hep B Core Total Ab S.aureus Protein A PCR MRSA (PCR) POC Glucose 87 07/04/19 07/04/19 07/04/19 12:13 14:28 15:10 WBC RBC Hgb Hct MCV MCH MCHC RDW Std Deviation RDW Coeff of [place] Plt Count MPV Immature Gran % (Auto) Neut % (Auto) Lymph % (Auto) [place] % (Auto) Eos % (Auto) Baso % (Auto) Absolute Neuts (auto) Absolute Lymphs (auto) Total Counted Neutrophils % (Manual) Band Neutrophils % Lymphocytes % (Manual) Monocytes % (Manual) Nucleated RBC % Differential Comment Diff Path Review Platelet Estimate Hypochromasia Anisocytosis Microcytosis PT INR APTT Specimen Type Sample Site pH Bicarbonate Actual POC Total CO2 Base Excess O2 Saturation O2 % ABG pCO2 ABG pO2 Khang Test Respiration Rate O2 Delivery Device Liter Flow Minute Volume Vent Mode Tidal Volume POC PEEP Blood Gas Notified Whom Blood Gas Notified Time Sodium Potassium Chloride Carbon Dioxide Anion Gap BUN Creatinine Estim Creat Clear Calc Est GFR (MDRD) Af Amer Est GFR (MDRD) Non-Af BUN/Creatinine Ratio Glucose Lactic Acid Calcium Phosphorus Magnesium Total Bilirubin AST ALT Alkaline Phosphatase Ammonia Troponin I B-Natriuretic Peptide Total Protein Albumin Globulin Albumin/Globulin Ratio TSH Urine Color Urine Clarity Urine pH Ur Specific [place] Urine Protein Urine Glucose (UA) Urine Ketones Urine Occult Blood Urine Nitrite Urine Bilirubin Urine Urobilinogen Ur Leukocyte Esterase Urine RBC Urine WBC Ur Squamous Epith Cells Urine Bacteria Urine Mucus U Random Total Protein Ur Random Sodium Urine Creatinine Protein/Creatinin Ratio Urine Potassium Urine Chloride Random Vancomycin Hep Bs Antigen Hep Bs Antibody Hep B Core Total Ab S.aureus Protein A PCR MRSA (PCR) Negative POC Glucose 94 100 07/04/19 07/04/19 07/04/19 18:41 19:00 19:00 WBC RBC Hgb Hct MCV MCH MCHC RDW Std Deviation RDW Coeff of [place] Plt Count MPV Immature Gran % (Auto) Neut % (Auto) Lymph % (Auto) [place] % (Auto) Eos % (Auto) Baso % (Auto) Absolute Neuts (auto) Absolute Lymphs (auto) Total Counted Neutrophils % (Manual) Band Neutrophils % Lymphocytes % (Manual) Monocytes % (Manual) Nucleated RBC % Differential Comment Diff Path Review Platelet Estimate Hypochromasia Anisocytosis Microcytosis PT INR APTT Specimen Type Sample Site pH Bicarbonate Actual POC Total CO2 Base Excess O2 Saturation O2 % ABG pCO2 ABG pO2 Khang Test Respiration Rate O2 Delivery Device Liter Flow Minute Volume Vent Mode Tidal Volume POC PEEP Blood Gas Notified Whom Blood Gas Notified Time Sodium Potassium Chloride Carbon Dioxide Anion Gap BUN Creatinine Estim Creat Clear Calc Est GFR (MDRD) Af Amer Est GFR (MDRD) Non-Af BUN/Creatinine Ratio Glucose Lactic Acid Calcium Phosphorus Magnesium Total Bilirubin AST ALT Alkaline Phosphatase Ammonia Troponin I B-Natriuretic Peptide Total Protein Albumin Globulin Albumin/Globulin Ratio TSH Urine Color Urine Clarity Urine pH Ur Specific [place] Urine Protein Urine Glucose (UA) Urine Ketones Urine Occult Blood Urine Nitrite Urine Bilirubin Urine Urobilinogen Ur Leukocyte Esterase Urine RBC Urine WBC Ur Squamous Epith Cells Urine Bacteria Urine Mucus U Random Total Protein Ur Random Sodium Urine Creatinine Protein/Creatinin Ratio Urine Potassium Urine Chloride Random Vancomycin Hep Bs Antigen Pending Hep Bs Antibody Pending Hep B Core Total Ab Pending S.aureus Protein A PCR MRSA (PCR) POC Glucose 123 H 07/04/19 07/05/19 07/05/19 23:15 02:03 04:30 WBC 31.6 H* RBC 2.78 L Hgb 8.9 L Hct 26.1 L MCV 93.9 MCH 32.0 MCHC 34.1 RDW Std Deviation 47.3 H RDW Coeff of [place] 13.8 Plt Count 286 MPV 9.2 Immature Gran % (Auto) 4.000 H Neut % (Auto) 87.3 H Lymph % (Auto) 4.9 L [place] % (Auto) 3.5 Eos % (Auto) 0.1 Baso % (Auto) 0.2 Absolute Neuts (auto) 27.6 H Absolute Lymphs (auto) 1.55 Total Counted Neutrophils % (Manual) Band Neutrophils % Lymphocytes % (Manual) Monocytes % (Manual) Nucleated RBC % 0 Differential Comment SCANNED Diff Path Review Platelet Estimate ADEQUATE Hypochromasia Anisocytosis Microcytosis PT INR APTT Specimen Type Sample Site pH Bicarbonate Actual POC Total CO2 Base Excess O2 Saturation O2 % ABG pCO2 ABG pO2 Khang Test Respiration Rate O2 Delivery Device Liter Flow Minute Volume Vent Mode Tidal Volume POC PEEP Blood Gas Notified Whom Blood Gas Notified Time Sodium Potassium Chloride Carbon Dioxide Anion Gap BUN Creatinine Estim Creat Clear Calc Est GFR (MDRD) Af Amer Est GFR (MDRD) Non-Af BUN/Creatinine Ratio Glucose Lactic Acid Calcium Phosphorus Magnesium Total Bilirubin AST ALT Alkaline Phosphatase Ammonia Troponin I B-Natriuretic Peptide Total Protein Albumin Globulin Albumin/Globulin Ratio TSH Urine Color Urine Clarity Urine pH Ur Specific [place] Urine Protein Urine Glucose (UA) Urine Ketones Urine Occult Blood Urine Nitrite Urine Bilirubin Urine Urobilinogen Ur Leukocyte Esterase Urine RBC Urine WBC Ur Squamous Epith Cells Urine Bacteria Urine Mucus U Random Total Protein Ur Random Sodium Urine Creatinine Protein/Creatinin Ratio Urine Potassium Urine Chloride Random Vancomycin Hep Bs Antigen Hep Bs Antibody Hep B Core Total Ab S.aureus Protein A PCR MRSA (PCR) POC Glucose 151 H 112 H 07/05/19 07/05/19 07/05/19 04:30 04:30 04:30 WBC RBC Hgb Hct MCV MCH MCHC RDW Std Deviation RDW Coeff of [place] Plt Count MPV Immature Gran % (Auto) Neut % (Auto) Lymph % (Auto) [place] % (Auto) Eos % (Auto) Baso % (Auto) Absolute Neuts (auto) Absolute Lymphs (auto) Total Counted Neutrophils % (Manual) Band Neutrophils % Lymphocytes % (Manual) Monocytes % (Manual) Nucleated RBC % Differential Comment Diff Path Review Platelet Estimate Hypochromasia Anisocytosis Microcytosis PT INR APTT Specimen Type Sample Site pH Bicarbonate Actual POC Total CO2 Base Excess O2 Saturation O2 % ABG pCO2 ABG pO2 Khang Test Respiration Rate O2 Delivery Device Liter Flow Minute Volume Vent Mode Tidal Volume POC PEEP Blood Gas Notified Whom Blood Gas Notified Time Sodium 138 Potassium 4.9 Chloride 101 Carbon Dioxide 16.0 L Anion Gap 21 H BUN 33 H Creatinine 2.81 H Estim Creat Clear Calc 22.07 Est GFR (MDRD) Af Amer 29 L Est GFR (MDRD) Non-Af 24 L BUN/Creatinine Ratio 11.7 Glucose 59 L Lactic Acid Calcium 7.4 L Phosphorus 7.1 H Magnesium 2.5 Total Bilirubin AST ALT Alkaline Phosphatase Ammonia Troponin I B-Natriuretic Peptide Total Protein Albumin Globulin Albumin/Globulin Ratio TSH Urine Color Urine Clarity Urine pH Ur Specific [place] Urine Protein Urine Glucose (UA) Urine Ketones Urine Occult Blood Urine Nitrite Urine Bilirubin Urine Urobilinogen Ur Leukocyte Esterase Urine RBC Urine WBC Ur Squamous Epith Cells Urine Bacteria Urine Mucus U Random Total Protein Ur Random Sodium Urine Creatinine Protein/Creatinin Ratio Urine Potassium Urine Chloride Random Vancomycin 12.3 Hep Bs Antigen Hep Bs Antibody Hep B Core Total Ab S.aureus Protein A PCR MRSA (PCR) POC Glucose Microbiology 07/03/19 10:30 Urine Catheter - Catheter Streptococcus pneumoniae Antigen (M - Final 07/03/19 10:30 Urine Catheter - Catheter Legionella Antigen - Final 07/03/19 15:45 Sputum, Induced/Lukens Gram Stain - Final 07/03/19 15:45 Sputum, Induced/Lukens Respiratory Culture - Preliminary Appears to be normal respiratory cynthia. Further studies to follow. 07/03/19 10:30 Urine Catheter - March Urine Culture - Preliminary GNR lactose hydrogen cell tender GNR Poss Pseudomonas sp 07/03/19 14:25 Mucosa - Nose Respiratory Panel (PCR) - Final 07/03/19 09:47 Mucosa - Nose Influenza Types A,B Direct FA (LINA) - Final Clinical Impression(s) from Imaging Studies Chest X-Ray 07/03/19 09:58 IMPRESSION: Mild degree of increased markings at the right lung base. Radiographic follow-up is recommended. Electronically Signed: Alonzo Masterson, at 10:28 EDT , Service support , Abdomen/Pelvis CT 07/03/19 10:00 IMPRESSION: Mild degree of ascites. Diffusely thickened urinary bladder wall. Extensive vascular calcifications as described. Bilateral hydronephrosis. This is unchanged. Mildly distended gallbladder with the findings suggestive of tiny gallstones or sludge within the gallbladder lumen. Electronically Signed: Alonzo Masterson, at 11:26 EDT , Service support , Chest X-Ray 07/03/19 12:02 IMPRESSION: Interval increase in diffuse pulmonary opacities more prominently at the right lower lobe as compared to a radiograph from several hours prior. This may represent worsening pulmonary edema versus acute infectious process as clinically indicated. Question small right upper lobe pulmonary nodule which may be further assessed with chest CT. Electronically Signed: Anthony Prasad, at 12:58 EDT Tel , Service support , Chest X-Ray 07/03/19 12:33 IMPRESSION: The tip of the endotracheal tube is at 5.8 cm proximal to the concepcion. The tip of the orogastric tube is at the GE junction. The remainder of the examination is unchanged. Electronically Signed: Alonzo Masterson, at 14:08 EDT , Service support , Chest X-Ray 07/03/19 23:20 IMPRESSION: Lines and tubes in satisfactory positions. Improved right basilar infiltrate since earlier today. Electronically Signed: Tony Ewing MD at 23:51 EDT , Service support , Renal Ultrasound 07/04/19 09:34 IMPRESSION: Small hyperechoic foci are noted within each kidney measuring 4 mm right and 5 mm left may represent vascular calcifications versus small nonobstructing stones. Renal ultrasound is otherwise within normal limits. Electronically Signed: Anthony Prasad, at 12:55 EDT Tel , Service support , Brain CT 07/04/19 09:36 IMPRESSION: Chronic involutional changes of the brain. Bilateral maxillary acute sinusitis. Electronically Signed: Judy Elliot at 12:15 EDT Tel , Service support , Chest X-Ray 07/04/19 16:25 IMPRESSION: Left IJ dialysis catheter terminates in the lower SVC. No pneumothorax. Improving aeration in both lung bases. No other changes. Electronically Signed: Tony Ewing MD at 16:42 EDT , Service support , Medical Necessity - Tobacco Use Smoking Status: Current every day smoker Assessment/Plan All Active Problems (Last Reviewed 05/31/19 @ 14:31 by Eboni Jacinto) Severe sepsis (Acute) Bilateral pneumonia (Acute) Acute hypoxic respiratory failure (Acute) Acute hypoxemic respiratory failure (Acute) UTI (urinary tract infection) (Acute) Pneumonia (Acute) Pulmonary edema (Acute) Elevated troponin (Acute) Severe protein-calorie malnutrition (Acute) Hypotension (Resolved) Renal insufficiency (Acute) CARLOS EDUARDO (acute kidney injury) (Resolved) Urinary tract infection (Resolved) RECOMMENDATIONS: 1. Continue amiodarone infusion for rate/rhythm control. 2. Continue patient on assist control mode of mechanical ventilation as ordered. 3. Continue to withhold all sedating medications. 4. Obtain MRI brain and EEG. Will obtain Neurology C/S after testing. 5. Continue hemodialysis per nephrology recommendations. 6. Continue Levophed and wean to maintain a mean arterial pressure at or above 65 mmHg. 7. Continue broad-spectrum antimicrobial coverage. 8. Continue bronchodilators and steroids. 9. Continue tube feeds. 10. Continue appropriate ICU prophylaxis. IMPRESSIONS: 1. Septic shock Etiology appears to be underlying pulmonary infectious process with right lower lobe infiltrate noted on chest imaging, along with possible urinary tract source of infection. The patient has been adequately volume resuscitated at this time. Continue broad-spectrum antimicrobial coverage, pending finalized infectious work-up. Continue vasopressor support to maintain a mean arterial pressure at or above 65 mmHg. We will also plan to start stress dose steroids as well today, given increasing requirements of Levophed and vasopressin. 2. Toxic/metabolic encephalopathy Recommend continuing to hold sedating medications. CT head was unrevealing. However, the patient remains nonresponsive, despite being off all sedation now for 24 hours. Accordingly, will obtain EEG and MRI. Neurology consultation will be obtained following the completion of testing. 3. Acute hypoxemic respiratory failure The patient does apparently have a reported history of COPD and appears to be in a state of exacerbation due to underlying pneumonia, coupled with respiratory compromise which was likely induced by volume resuscitation for his sepsis. The patient did have to be emergently intubated in the emergency department. For now, he will be maintained on assist control mode of mechanical ventilation. Infectious work-up is currently underway. Given the patient's questionable history of obstructive lung disease, he will be continued on Atrovent aerosols, given persistent tachycardia. In addition, IV steroids will also be continued. 4. Acute kidney injury Likely ischemic ATN in the setting of #1. As noted above, the patient has received IV fluid resuscitation and will be maintained on vasopressor support, as clinically indicated, to maintain hemodynamic stability. Nephrology is currently following to assist with hemodialysis needs. 5. Troponin elevation/coronary artery disease status post bypass surgery in 2008/acute systolic heart failure Unclear if troponin elevation is due to demand ischemia in the setting of #1 versus an intrinsic cardiac event. Cardiology is currently following. 6. Questionable COPD history/peripheral vascular disease/protein calorie malnutrition Complicates care, management, recovery and prognosis. Continue current supportive measures as noted above. Physical therapy to evaluate the patient once medically appropriate. UPDATE: I met with the patient's POA this afternoon to discuss the patient's clinical state and poor prognosis. In light of the patient's neurological status, the patient's POA elected to transition his code status to [id number]. A short time later, the patient decompensated further and went into asystole. Time of was declared at 2:14pm on 07/04. TIME: 82 minutes of critical care time, inclusive of procedures, was spent addressing the patient's septic shock, acute hypoxemic respiratory failure, acute kidney injury, troponin elevation, acute systolic heart failure, encephalopathy, review of all data and collaboration with the care team. ([id number], [id number]) Procedures: 35671 Critial Care Addl 30 Min 9xxxx: [id number] Critical care first hour
[2019-07-05 07:26] LABS: Bedside Glucose 84 mg/dL (70-110)
[2019-07-05 07:26] LABS: Bedside Glucose 28 mg/dL (70-110)
[2019-07-05 07:56] LABS: Bedside Glucose 98 mg/dL (70-110)
[2019-07-05] MEDS: Acetaminophen 650 MG/20 ML UDC PO (08:32)
[2019-07-05 08:33] LABS: Hepatitis B Surface Antibody Non-Reactive; Hepatitis B Surface Antigen Non-Reactive (Nonreactive)
--- NOTE | 2019-07-05 08:55 | PCM.PN.CARD ---
Subjectve: Patient remains intubated and sedated, had Levophed restarted yesterday at 10 AM, went through hemodialysis yesterday without difficulty but did develop atrial fibrillation requiring IV amiodarone drip. Patient back in normal sinus rhythm this morning. Patient is unresponsive, does not obey commands, has been off sedation for the better part of 24-36 hrs. EEG pending. Patient currently on 20 mics of Levophed. Objective: Vital Signs Temp Pulse Resp BP Pulse Ox 101.8 F H 113 H 33 H 137/110 H 97 07/05/19 08:00 07/05/19 08:30 07/05/19 08:00 07/05/19 08:30 07/05/19 08:00 Oxygen Flow Rate (L/min) 2 Oxygen Delivery Method Mechanical Ventilator Weight: 129 lb 3.054 oz Body Mass Index (BMI) 17.8 Finger Stick Blood Glucose 88 Intake and Output for Last 24 Hours 07/03/19 07/04/19 07/05/19 23:59 23:59 23:59 Intake Total 3278.90 / 3293.07 965.09 / 974.49 770.73 / 770.73 Output Total 100 / 500 1120 / 1120 50 / 50 Balance 3178.90 / 2793.07 -154.91 / -145.51 720.73 / 720.73 General: Awake, Alert, Oriented x 3 HEENT: PERRL, EOMI, Sclera Non Icteric Neck: Supple, Good ROM, No Lymph Node Enlargement Lungs: Clear to auscultation Cardiovascular: Regular Rhythm, Normal S1, Normal S2, No Murmurs, No Rubs, No Gallops Vascular: No Carotid Bruits, Normal Femoral Pulses, Normal Radial Pulses, Normal Dorsalis Pedal Pulse, Normal Posterior Tibial Pulses Abdomen: Bowel Sounds Present, Soft, Non Tender, No HSM, No Organomegaly Extremities: No Cyanosis, No Clubbing, No edema Neurological: No Focal Motor or Sensory Deficit 07/04/19 08:15: Sodium 147 H, Potassium 5.1, Chloride 126 H, Carbon Dioxide 13.0 L, Anion Gap 8, BUN 52 H, Creatinine 3.27 H, Est GFR (MDRD) Af Amer 25 L, Est GFR (MDRD) Non-Af 20 L, BUN/Creatinine Ratio 15.9, Glucose 85, Calcium 8.7, Total Bilirubin 0.30 07/04/19 08:15: PT 16.2 H, INR 1.3 07/04/19 09:47: pH 7.23 L, Bicarbonate Actual 10.3 L, POC Total CO2 11, Base Excess -17 L, O2 Saturation 98, ABG pCO2 24.9 L, ABG pO2 129 H, Khang Test NA 07/05/19 04:30: WBC 31.6 H*, RBC 2.78 L, Hgb 8.9 L, Hct 26.1 L, MCV 93.9, MCH 32.0, MCHC 34.1, Plt Count 286, MPV 9.2, Immature Gran % (Auto) 4.000 H, Neut % (Auto) 87.3 H, Lymph % (Auto) 4.9 L, [place] % (Auto) 3.5, Eos % (Auto) 0.1, Baso % (Auto) 0.2, Absolute Neuts (auto) 27.6 H, Nucleated RBC % 0 07/05/19 04:30: Sodium 138, Potassium 4.9, Chloride 101, Carbon Dioxide 16.0 L, Anion Gap 21 H, BUN 33 H, Creatinine 2.81 H, Est GFR (MDRD) Af Amer 29 L, Est GFR (MDRD) Non-Af 24 L, BUN/Creatinine Ratio 11.7, Glucose 59 L, Calcium 7.4 L, Magnesium 2.5 07/05/19 04:30: Phosphorus 7.1 H Rhythm: Telemetry shows normal sinus rhythm. EKG: ECHO: Stress Test: Cardiac Cath: PCI: CT Surgery: Holter monitor: EPS: PPM: CXR: Chest CT Scan: Medical Necessity - Tobacco Use Smoking Status: Current every day smoker Assessment/Plan 1. Non-STEMI: Patient presents with acute respiratory distress superimposed on severe sepsis, possibly due to cholecystitis and/or urinary tract infection. Patient's condition deteriorated rapidly over the last few hours prior to admission, requiring emergent intubation, ventilator support, and blood pressure support with Levophed. Thankfully his EKG has normalized subsequent to his intubation and relative stabilization. I reviewed the patient's catheterization films from 2018, and I would not recommend repeat catheterization at this time given the patient's condition, acute on chronic renal insufficiency, and due to the complete resolution of his ST segment changes after intubation. Peak troponin 11.0. At this point I would recommend continuing baby aspirin 81 mg p.o. daily, Plavix 75 mg a day. Continue to hold antihypertensive therapy as patient is on Levophed drip. 2. LV dysfunction: The patient has severe global LV dysfunction most likely result of his severe sepsis, which hopefully will resolve once his sepsis has resolved. Would recommend repeat echocardiogram in 3 to 4 weeks time to determine if his LV function has improved. Given his overt sepsis, I would not recommend repeat catheterization or intra-aortic balloon pump therapy at this time. Would recommend cautious use of IV fluids as this would most likely third space into the patient's pleural space, abdominal space and upper and lower extremities in the form of edema. I would not recommend OK inhibitor or ARB's at this time given his acute on chronic renal insufficiency and hypotension requiring Levophed support. It is my understanding the patient will undergo an EEG today to determine if he has any cerebral function. We await those results. 3. Patient is is in grave condition at this time which I communicated to the patient's family member. He is currently full code. I believe we can get a hold of his infectious process, he may benefit from surgical correction of his suppose a cholecystitis as a nidus for his sepsis. Patient was found to have gram-negative sepsis, and is currently on antibiotic therapy. 4. Malnutrition: The patient had a recent small bowel obstruction in March 2019 and has had subsequent protein malnutrition which will make recovery from this episode somewhat problematic and decreasing the risk of success. Patient may require TPN in the short-term, followed by hyperalimentation going forward. 5. Discussed the patient's condition and options as well as possible prognosis with the patient's family member on 07/03/2019, who was at the bedside and provided much of his history for today's exam. Poor prognosis at this time. 6. Thank you very much for the opportunity to participate in the cardiac care of your patient. Discussed with Dr. Moscoso. Inpatient E&M: [id number] [facility] L3
[2019-07-05] MEDS: Thiamine Hydrochloride 100 MG Tablet GT (09:56)
[2019-07-05] MEDS: Aspirin 81 MG TAB.CHEW GT (09:56)
[2019-07-05] MEDS: Clopidogrel Bisulfate 75 MG Tablet GT (09:56)
[2019-07-05] MEDS: Chlorhexidine 15 ML PO (09:56)
[2019-07-05] MEDS: Heparin Injection (Vial) 5,000 UNIT/ML VIAL 5000 UNIT SC (09:57)
[2019-07-05] MEDS: Famotidine 20 MG Tablet GT (09:57)
[2019-07-05] MEDS: Dextrose 10%-Water 250 ML 999 ML IV ×2 (10:10→11:49)
[2019-07-05 10:16] LABS: Bedside Glucose 50 mg/dL (70-110)
--- NOTE | 2019-07-05 10:34 | PCM.RX.CS ---
Consult Pharmacy has been consulted to manage selected antiobiotic: Vancomycin Type of Consult: Follow-up Suspected Infection: Sepsis Labs: Sodium 138 mmol/L (136-145) 07/05/19 04:30 Potassium 4.9 mmol/L (3.5-5.1) 07/05/19 04:30 Chloride 101 mmol/L (98-107) 07/05/19 04:30 Carbon Dioxide 16.0 mmol/L (21.0-32.0) L 07/05/19 04:30 Anion Gap 21 (5-15) H 07/05/19 04:30 BUN 33 mg/dL (7-18) H 07/05/19 04:30 Creatinine 2.81 mg/dL (0.70-1.30) H 07/05/19 04:30 Est GFR (MDRD) Af Amer 29 mL/min (>60) L 07/05/19 04:30 Est GFR (MDRD) Non-Af 24 mL/min (>60) L 07/05/19 04:30 BUN/Creatinine Ratio 11.7 RATIO (-20) 07/05/19 04:30 Glucose 59 mg/dL (74-106) L 07/05/19 04:30 Random Vancomycin 12.3 ug/mL (0.0-15.0) 07/05/19 04:30 Microbiology: Microbiology 07/03/19 10:30 Urine Catheter - March Urine Culture - Preliminary GNR lactose interpersonal communications professor GNR Poss Pseudomonas sp 07/03/19 10:30 Urine Catheter - Catheter Streptococcus pneumoniae Antigen (M - Final 07/03/19 10:30 Urine Catheter - Catheter Legionella Antigen - Final 07/03/19 15:45 Sputum, Induced/Lukens Gram Stain - Final 07/03/19 15:45 Sputum, Induced/Lukens Respiratory Culture - Preliminary Appears to be normal respiratory cynthia. Further studies to follow. 07/03/19 14:25 Mucosa - Nose Respiratory Panel (PCR) - Final 07/03/19 09:47 Mucosa - Nose Influenza Types A,B Direct FA (LINA) - Final Goal Trough: 15-20 mcg/mL Pharmacy Plan for Drug Dosing: The patient had a random level drawn this morning, which resulted in a value of 12.3. Discussed with nursing, the patient will be getting hemodialysis today. Will plan on giving a dose post-dialysis. No additional dialysis/ scheduled dialysis is planned at this time per [facility] chart review. Will not schedule another random level at this time, pharmacy to follow-up with nursing on a daily basis to determine vancomycin dosing plan. PLAN/RECOMMENDATIONS 1. Vancomycin 750mg IV x1 to be given after hemodialysis 2. No random level at this time- will follow-up to determine when next HD will be 3. Pharmacy Service will continue to monitor and adjust dosing as required.
[2019-07-05] MEDS: Dextrose 10%-Water 250 ML 30 ML IV (10:35)
--- NOTE | 2019-07-05 10:43 | PCM.PN.REN ---
Patient Problems: Active and Suspected Problems (Last Reviewed 05/31/19 @ 14:31 by Eboni Jacinto) Severe sepsis (Acute) Bilateral pneumonia (Acute) Acute hypoxic respiratory failure (Acute) Acute hypoxemic respiratory failure (Acute) UTI (urinary tract infection) (Acute) Pneumonia (Acute) Pulmonary edema (Acute) Elevated troponin (Acute) Subjective: Pt remains intubated Pt is now on 2 BP pressors Cannot do ROS - Physical Exam Vitals/I&O's: Vital Signs Temp Pulse Resp BP Pulse Ox 101.8 F H 104 H 25 H 75/58 L 100 07/05/19 08:00 07/05/19 10:15 07/05/19 10:00 07/05/19 10:15 07/05/19 10:00 Oxygen Flow Rate (L/min) 2 Oxygen Delivery Method Mechanical Ventilator Weight: 58.6 kg Body Mass Index (BMI) 17.8 Finger Stick Blood Glucose 88 Intake and Output for Last 24 Hours 07/03/19 07/04/19 07/05/19 23:59 23:59 23:59 Intake Total 3278.90 / 3293.07 965.09 / 974.49 986.39 / 986.39 Output Total 100 / 500 1120 / 1120 50 / 50 Balance 3178.90 / 2793.07 -154.91 / -145.51 936.39 / 936.39 General: - - intubated HEENT: Atraumatic Neck: Supple, No JVD Lungs: - - B/l rhonchi Cardiovascular: Tachycardic Abdomen: Soft, Non-Distended Extremities: No edema Skin: No rashes Microbiology Past 72 Hours 07/03/19 10:30 Urine Catheter - Mascorro Urine Culture - Preliminary GNR lactose nuclear test technician GNR Poss Pseudomonas sp 07/03/19 10:30 Urine Catheter - Catheter Streptococcus pneumoniae Antigen (M - Final 07/03/19 10:30 Urine Catheter - Catheter Legionella Antigen - Final 07/03/19 15:45 Sputum, Induced/Lukens Gram Stain - Final 07/03/19 15:45 Sputum, Induced/Lukens Respiratory Culture - Preliminary Appears to be normal respiratory cynthia. Further studies to follow. 07/03/19 14:25 Mucosa - Nose Respiratory Panel (PCR) - Final 07/03/19 09:47 Mucosa - Nose Influenza Types A,B Direct FA (LINA) - Final Laboratory Results 07/04/19 04:45: Diff Path Review Reviewed 07/04/19 12:13: POC Glucose 94 07/04/19 14:28: POC Glucose 100 07/04/19 15:10: MRSA (PCR) Negative 07/04/19 18:41: POC Glucose 123 H 07/04/19 19:00: Hep B Core Total Ab Pending 07/04/19 19:00: Hep Bs Antigen Non-Reactive, Hep Bs Antibody Non-Reactive 07/04/19 23:15: POC Glucose 151 H 07/05/19 02:03: POC Glucose 112 H 07/05/19 04:30: WBC 31.6 H*, RBC 2.78 L, Hgb 8.9 L, Hct 26.1 L, MCV 93.9, MCH 32.0, MCHC 34.1, RDW Std Deviation 47.3 H, RDW Coeff of [place] 13.8, Plt Count 286, MPV 9.2, Immature Gran % (Auto) 4.000 H, Neut % (Auto) 87.3 H, Lymph % (Auto) 4.9 L, Cooper % (Auto) 3.5, Eos % (Auto) 0.1, Baso % (Auto) 0.2, Absolute Neuts (auto) 27.6 H, Absolute Lymphs (auto) 1.55, Nucleated RBC % 0, Differential Comment SCANNED, Platelet Estimate ADEQUATE 07/05/19 04:30: Random Vancomycin 12.3 07/05/19 04:30: Sodium 138, Potassium 4.9, Chloride 101, Carbon Dioxide 16.0 L, Anion Gap 21 H, BUN 33 H, Creatinine 2.81 H, Estim Creat Clear Calc 22.07, Est GFR (MDRD) Af Amer 29 L, Est GFR (MDRD) Non-Af 24 L, BUN/Creatinine Ratio 11.7, Glucose 59 L, Calcium 7.4 L, Magnesium 2.5 07/05/19 04:30: Phosphorus 7.1 H 07/05/19 04:38: Total Bilirubin Pending, Direct Bilirubin Pending, AST Pending, ALT Pending, Alkaline Phosphatase Pending, Total Protein Pending, Albumin Pending 07/05/19 06:00: POC Glucose 28 L* 07/05/19 06:15: POC Glucose 84 07/05/19 07:49: POC Glucose 98 07/05/19 10:00: POC Glucose 50 L Current Medications Acetaminophen (Tylenol Liquid) 650 mg PO Q4H PRN PRN PRN Reason: Pain Score 1-10/Temp > 100.7 F Last Admin: 07/05/19 08:32 Dose: 650 mg Documented by: Aspirin (Aspirin, Baby) 81 mg GT DAILY [facility] Last Admin: 07/05/19 09:56 Dose: 81 mg Documented by: Chlorhexidine Gluconate () 15 ml PO BID [facility] Last Admin: 07/05/19 09:56 Dose: 15 ml Documented by: Clopidogrel Bisulfate (Plavix) 75 mg GT DAILY [facility] Last Admin: 07/05/19 09:56 Dose: 75 mg Documented by: Famotidine (Pepcid) 20 mg GT DAILY [facility] Last Admin: 07/05/19 09:57 Dose: 20 mg Documented by: Glucagon () 1 mg IM .X1 PRN PRN Reason: Hypoglycemia Heparin Sodium (Porcine) (Heparin Na) 5,000 unit SC Q12 [facility] Last Admin: 07/05/19 09:57 Dose: 5,000 unit Documented by: Hydrocortisone Sodium Succinate (Solu-Cortef) 50 mg IV Q6 [facility] Vancomycin IV Pharmacy to Dose (1 ea/ Sodium Chloride) 500 mls @ 250 mls/hr IV PRN PRN; Protocol Sodium Chloride () 250 mls @ 15 mls/hr IV .[id number] PRN PRN Reason: Saline Flush Sodium Chloride () 250 mls @ 15 mls/hr IV .[id number] PRN PRN Reason: Additional IVPB Infusion Norepinephrine Bitartrate 8 mg (/ Sodium Chloride) 250 mls @ 9.375 mls/hr CONT INF .[id number] [facility]; Protocol Last Titration: 07/05/19 10:15 Dose: 35 mcg/min, 65.6 mls/hr Documented by: Enteral Nutritional Formula (Vital Af 1.2 Tyler Liquid) 1,000 mls @ 40 mls/hr GT .Q25H [facility] Last Admin: 07/04/19 12:21 Dose: 40 mls/hr Documented by: Amiodarone HCl 360 mg/ (Dextrose) 200 mls @ 16.667 mls/hr CONT INF .Q12H EMILIE Stop: 07/05/19 20:29 Last Admin: 07/05/19 04:55 Dose: 0.5 mg/min, 16.7 mls/hr Documented by: Vasopressin 20 units/ Sodium (Chloride) 25 mls @ 3 mls/hr IV .Q8H20M EMILIE Last Admin: 07/05/19 09:45 Dose: 0.04 units/min, 3 mls/hr Documented by: Dextrose (Dextrose 10%-Water) 250 mls @ 999 mls/hr IV .Q16M PRN; Protocol PRN Reason: HYPOGLYCEMIA Last Admin: 07/05/19 10:10 Dose: 999 mls/hr Documented by: Dextrose (Dextrose 10%-Water) 250 mls @ 30 mls/hr IV .Q8H20M EMILIE Last Admin: 07/05/19 10:35 Dose: 30 mls/hr Documented by: Meropenem 1 gm/ Sodium (Chloride) 120 mls @ 33 mls/hr IV Q24 [facility] Insulin Human Lispro (Humalog Kwikpen (Bkc)) 0 unit SC Q4 [facility]ILIE; Protocol Last Admin: 07/05/19 10:07 Dose: Not Given Documented by: Ipratropium [place] (Atrovent) 0.5 mg INHALATION Q4H.RT [facility] Last Admin: 07/05/19 07:34 Dose: 0.5 mg Documented by: Prochlorperazine Edisylate (Compazine Iv) 5 mg IV Q4H PRN PRN PRN Reason: Breakthrough Nausea/Vomiting Sodium Chloride () 10 - 40 ml IV UD PRN PRN Reason: Multilumen/Becerra Flush Last Admin: 07/05/19 10:34 Dose: 10 ml Documented by: Sodium Chloride (0.9% Nacl (Sterile) Posiflush) 10 - 40 ml IV UD PRN PRN Reason: Port access or dressing change Sodium Chloride () 10 - 40 ml IV UD PRN PRN Reason: SALINE FLUSH Thiamine HCl (Vitamin B1) 100 mg GT DAILY [facility] Last Admin: 07/05/19 09:56 Dose: 100 mg Documented by: Medical Necessity - Tobacco Use Smoking Status: Current every day smoker Assessment/Plan All Active Problems (Last Reviewed 05/31/19 @ 14:31 by Eboni Jacinto) Severe sepsis (Acute) Bilateral pneumonia (Acute) Acute hypoxic respiratory failure (Acute) Acute hypoxemic respiratory failure (Acute) UTI (urinary tract infection) (Acute) Pneumonia (Acute) Pulmonary edema (Acute) Elevated troponin (Acute) Severe protein-calorie malnutrition (Acute) Hypotension (Resolved) Renal insufficiency (Acute) CARLOS EDUARDO (acute kidney injury) (Resolved) Urinary tract infection (Resolved) 1- CARLOS EDUARDO . SCr was normal prior to January 2019. In January patient had CARLOS EDUARDO when SCr peaked at 3.1 mg/dL and improved next day to 1.7 UA showed WBC > 100, lse 500, and protein 100 CT showed B/L hydronephrosis. Pt is oliguric despite placing mascorro CARLOS EDUARDO is likely ischemic ATN from septic shock. No recovery of kidney function Pt started on HD 07/03. Will arrange for 2nd HD session today without UF to help correcting metabolic acidosis Pt is on 2 BP pressors and he might note tolerate HD Keep MAP > 65. Avoid IV contrast 2- Metabolic acidosis from hemodynamic shock, and CARLOS EDUARDO Improved with HD. 3- B/L hydronephrosis. Pt had h/o HUGHES needed mascorro cath placement which was taken out last week continue mascorro cath No plan for intervention from Urology stand point 4- Septic shock from pneumonia/UTI Back on pressors Abx as per ICU/ID 5- Acute RF Vent management as per ICU team Poor prognosis Plan of care was d/w Dr. Moscoso Please call if any question at [phone] Renal team will continue to follow with you Ronaldo Weaver MD
[2019-07-05 10:48] LABS: AST(SGOT) 213 U/L (15-37); Alanine Aminotransfer ALT/SGPT 48 U/L (16-61); Albumin, Serum 1.8 g/dL (3.2-5.0); Alkaline Phosphatase 142 U/L (45-117); Bilirubin, Direct 0.27 mg/dL (0.00-0.30); Globulin 4.2 g/dL (2.2-4.2)
--- NOTE | 2019-07-05 10:58 | PN_ITS ---
Patient Problems: Active and Suspected Problems (Last Reviewed 05/31/19 @ 14:31 by Eboni Jacinto) Severe sepsis (Acute) Bilateral pneumonia (Acute) Acute hypoxic respiratory failure (Acute) Acute hypoxemic respiratory failure (Acute) UTI (urinary tract infection) (Acute) Pneumonia (Acute) Pulmonary edema (Acute) Elevated troponin (Acute) Subjective: Patient seen and examined. He remains intubated and sedated. He became hypotensive overnight and so was started on Levophed. However he still remained hypotensive so vasopressin was added on this morning. His ex- who is his POA was by his bedside. Patient had a dialysis catheter placed yesterday and had dialysis on account of anuria. He is due to have an EEG and possibly an MRI later today. Temperature is 101.8 ?F and blood pressure was done in the 70s systolic. He is tachycardic and tachypneic with respiratory rate around 25 and pulse rate of 104. Vitals/I&O's: Vital Signs Temp Pulse Resp BP Pulse Ox 101.8 F H 104 H 25 H 75/58 L 100 07/05/19 08:00 07/05/19 10:15 07/05/19 10:00 07/05/19 10:15 07/05/19 10:00 Oxygen Flow Rate (L/min) 2 Oxygen Delivery Method Mechanical Ventilator Weight: 129 lb 3.054 oz Body Mass Index (BMI) 17.8 Finger Stick Blood Glucose 88 Intake and Output for Last 24 Hours 07/03/19 07/04/19 07/05/19 23:59 23:59 23:59 Intake Total 3278.90 / 3293.07 965.09 / 974.49 986.39 / 986.39 Output Total 100 / 500 1120 / 1120 50 / 50 Balance 3178.90 / 2793.07 -154.91 / -145.51 936.39 / 936.39 General: - - patient intubated, sedated, RASS score of -4 HEENT: Atraumatic, PERRLA, EOMI, Normocephalic Oral: Dry Mucosa Neck: Supple, No JVD, Negative Carotid Bruits Lungs: - - decreased breath sounds bibasally, no wheezes or crackles auscultated. Intubated, sedated. Cardiovascular: Normal S1, Normal S2, No murmurs, Tachycardic Abdomen: Bowel Sounds Present, Soft, Non Tender Extremities: No clubbing, No cyanosis, No edema, Capillary Refill Less than 3 Seconds Skin: No rashes, No breakdown Musculoskeletal: No Tenderness to Palpation of Joints or Extremities Lymphatic: No Cervical, Supraclavicular, or Inguinal Adenopathy Neurological: - - deeply sedated and intubated. 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 Further studies to follow. 07/03/19 14:25 Mucosa - Nose Respiratory Panel (PCR) - Final 07/03/19 09:47 Mucosa - Nose Influenza Types A,B Direct FA (LINA) - Final Laboratory Results 07/04/19 04:45: Diff Path Review Reviewed 07/04/19 12:13: POC Glucose 94 07/04/19 14:28: POC Glucose 100 07/04/19 15:10: MRSA (PCR) Negative 07/04/19 18:41: POC Glucose 123 H 07/04/19 19:00: Hep B Core Total Ab Pending 07/04/19 19:00: Hep Bs Antigen Non-Reactive, Hep Bs Antibody Non-Reactive 07/04/19 23:15: POC Glucose 151 H 07/05/19 02:03: POC Glucose 112 H 07/05/19 04:30: WBC 31.6 H*, RBC 2.78 L, Hgb 8.9 L, Hct 26.1 L, MCV 93.9, MCH 32.0, MCHC 34.1, RDW Std Deviation 47.3 H, RDW Coeff of [place] 13.8, Plt Count 286, MPV 9.2, Immature Gran % (Auto) 4.000 H, Neut % (Auto) 87.3 H, Lymph % (Auto) 4.9 L, Person % (Auto) 3.5, Eos % (Auto) 0.1, Baso % (Auto) 0.2, Absolute Neuts (auto) 27.6 H, Absolute Lymphs (auto) 1.55, Nucleated RBC % 0, Differential Comment SCANNED, Platelet Estimate ADEQUATE 07/05/19 04:30: Random Vancomycin 12.3 07/05/19 04:30: Sodium 138, Potassium 4.9, Chloride 101, Carbon Dioxide 16.0 L, Anion Gap 21 H, BUN 33 H, Creatinine 2.81 H, Estim Creat Clear Calc 22.07, Est GFR (MDRD) Af Amer 29 L, Est GFR (MDRD) Non-Af 24 L, BUN/Creatinine Ratio 11.7, Glucose 59 L, Calcium 7.4 L, Magnesium 2.5 07/05/19 04:30: Phosphorus 7.1 H 07/05/19 04:38: Total Bilirubin 0.50, Direct Bilirubin 0.27, AST 213 H, ALT 48, Alkaline Phosphatase 142 H, Total Protein 6.0 L, Albumin 1.8 L, Globulin 4.2 07/05/19 06:00: POC Glucose 28 L* 07/05/19 06:15: POC Glucose 84 07/05/19 07:49: POC Glucose 98 07/05/19 10:00: POC Glucose 50 L 07/05/19 10:35: PT Pending, INR Pending Current Medications Acetaminophen (Tylenol Liquid) 650 mg PO Q4H PRN PRN PRN Reason: Pain Score 1-10/Temp > 100.7 F Last Admin: 07/05/19 08:32 Dose: 650 mg Documented by: Aspirin (Aspirin, Baby) 81 mg GT DAILY [facility] Last Admin: 07/05/19 09:56 Dose: 81 mg Documented by: Chlorhexidine Gluconate () 15 ml PO BID [facility] Last Admin: 07/05/19 09:56 Dose: 15 ml Documented by: Clopidogrel Bisulfate (Plavix) 75 mg GT DAILY [facility] Last Admin: 07/05/19 09:56 Dose: 75 mg Documented by: Famotidine (Pepcid) 20 mg GT DAILY [facility] Last Admin: 07/05/19 09:57 Dose: 20 mg Documented by: Glucagon () 1 mg IM .X1 PRN PRN Reason: Hypoglycemia Heparin Sodium (Porcine) (Heparin Na) 5,000 unit SC Q12 [facility] Last Admin: 07/05/19 09:57 Dose: 5,000 unit Documented by: Hydrocortisone Sodium Succinate (Solu-Cortef) 50 mg IV Q6 [facility] Vancomycin IV Pharmacy to Dose (1 ea/ Sodium Chloride) 500 mls @ 250 mls/hr IV PRN PRN; Protocol Sodium Chloride () 250 mls @ 15 mls/hr IV .[id number] PRN PRN Reason: Saline Flush Sodium Chloride () 250 mls @ 15 mls/hr IV .[id number] PRN PRN Reason: Additional IVPB Infusion Norepinephrine Bitartrate 8 mg (/ Sodium Chloride) 250 mls @ 9.375 mls/hr CONT INF .[id number] [facility]; Protocol Last Titration: 07/05/19 10:15 Dose: 35 mcg/min, 65.6 mls/hr Documented by: Enteral Nutritional Formula (Vital Af 1.2 Tyler Liquid) 1,000 mls @ 40 mls/hr GT .Q25H [facility] Last Admin: 07/04/19 12:21 Dose: 40 mls/hr Documented by: Amiodarone HCl 360 mg/ (Dextrose) 200 mls @ 16.667 mls/hr CONT INF .Q12H [facility]ILIE Stop: 07/05/19 20:29 Last Admin: 07/05/19 04:55 Dose: 0.5 mg/min, 16.7 mls/hr Documented by: Vasopressin 20 units/ Sodium (Chloride) 25 mls @ 3 mls/hr IV .Q8H20M [facility] Last Admin: 07/05/19 09:45 Dose: 0.04 units/min, 3 mls/hr Documented by: Dextrose (Dextrose 10%-Water) 250 mls @ 999 mls/hr IV .Q16M PRN; Protocol PRN Reason: HYPOGLYCEMIA Last Admin: 07/05/19 10:10 Dose: 999 mls/hr Documented by: Dextrose (Dextrose 10%-Water) 250 mls @ 30 mls/hr IV .Q8H20M [facility] Last Admin: 07/05/19 10:35 Dose: 30 mls/hr Documented by: Meropenem 1 gm/ Sodium (Chloride) 120 mls @ 33 mls/hr IV Q24 [facility] Vancomycin HCl 750 mg/ Sodium (Chloride) 265 mls @ 250 mls/hr IV X1 ONE Stop: 07/05/19 22:03 Insulin Human Lispro (Humalog Kwikpen (Bkc)) 0 unit SC Q4 [facility]; Protocol Last Admin: 07/05/19 10:07 Dose: Not Given Documented by: Ipratropium [place] (Atrovent) 0.5 mg INHALATION Q4H.RT [facility] Last Admin: 07/05/19 07:34 Dose: 0.5 mg Documented by: Prochlorperazine Edisylate (Compazine Iv) 5 mg IV Q4H PRN PRN PRN Reason: Breakthrough Nausea/Vomiting Sodium Chloride () 10 - 40 ml IV UD PRN PRN Reason: Multilumen/Becerra Flush Last Admin: 07/05/19 10:34 Dose: 10 ml Documented by: Sodium Chloride (0.9% Nacl (Sterile) Posiflush) 10 - 40 ml IV UD PRN PRN Reason: Port access or dressing change Sodium Chloride () 10 - 40 ml IV UD PRN PRN Reason: SALINE FLUSH Thiamine HCl (Vitamin B1) 100 mg GT DAILY [facility] Last Admin: 07/05/19 09:56 Dose: 100 mg Documented by: STROKE Vital Signs/Narrative: Vital Signs Temp Pulse Resp BP Pulse Ox 07/05/19 10:15 104 H 75/58 L 07/05/19 10:00 106 H 25 H 75/30 L 100 07/05/19 09:45 107 H 74/49 L 07/05/19 09:30 107 H 85/64 L 07/05/19 09:15 107 H 69/57 L 07/05/19 09:00 107 H 32 H 106/54 L 100 07/05/19 08:45 108 H 106/62 07/05/19 08:30 113 H 137/110 H 07/05/19 08:15 112 H 104/78 07/05/19 08:00 101.8 F H 115 H 33 H 98/62 97 07/05/19 07:45 115 H 100/73 07/05/19 07:32 110 H 34 H 96 07/05/19 07:30 113 H 93/47 L 07/05/19 07:15 110 H 24 H 97/53 L 96 07/05/19 07:00 113 H 32 H 98/66 95 Medical Necessity - Tobacco Use Smoking Status: Current every day smoker Assessment/Plan All Active Problems (Last Reviewed 05/31/19 @ 14:31 by Eboni Jacinto) Severe sepsis (Acute) Bilateral pneumonia (Acute) Acute hypoxic respiratory failure (Acute) Acute hypoxemic respiratory failure (Acute) UTI (urinary tract infection) (Acute) Pneumonia (Acute) Pulmonary edema (Acute) Elevated troponin (Acute) Severe protein-calorie malnutrition (Acute) Hypotension (Resolved) Renal insufficiency (Acute) CARLOS EDUARDO (acute kidney injury) (Resolved) Urinary tract infection (Resolved) 1. Septic shock * due to bilateral pneumonia and UTI. CXR on admission showed increased markings in right lung base, likely due to infiltrate * still intubated and sedated. Now requiring levophed and vasopressin. * on IV vancomycin and zosyn * SIRS criteria is 4/4 (tachycardia, tachypnea and leucocytosis) * wbc is 31.6 * blood cultures, respiratory panel and sputum culture pending. * urine cultured gram negative rods, possibly Pseudomonas species * influenza screen is negative and urine for strep and legionella were also negative * critical care on board * CT of the abdomen and pelvis showed mild degree of ascites was diffusely thickened urinary bladder wall and bilateral hydronephrosis with mildly distended gallbladder with findings suggestive of tiny gallstones or sludge within the gallbladder. * patient to go for EEG and possibly MRI of the brain later today. * 2. Acute hypoxic respiratory failure * remains intubated and sedated. * critical care on board * on breathing treatments with bronchodilators * on IV solumedrol 40mg q6 * 3. anion gap Metabolic acidosis * bicarb is 16 today, with anion gap of 21 now. Had an normal anion gap on admission * nephrology on board. * * 4. Nonstemi * Initial troponin was 0.751 but trended up to a peak of 11. BNP was 497.6. * He does have a history of COPD status post CABG plus peripheral artery disease. * cardiology on board; * 2D echo showed EF of 20%, with RVSP of 48mmHg and indeterminate diastolic dysfunction, severe LV segmental dysfunction. Echolucency compatible with pleural effusion. * on aspirin and plavix as well as statin. * Cardiology does not recommend repeat cardiac cath at this time; recommend 75 mg daily of Lovenox for anticoagulation. 5. Carlos Eduardo on CKD 4 with bilateral hydronephrosis * patient had dialysis yesterday * Cr today is 2.81; * nephrology and urology on board 6. Afib: patient developed AFib overnight, with IV amiodarone being started. cardiology on board * 7. Hypernatremia: resolved. Sodium is 138 8. Hypertension: BP meds namely metoprolol and nifedipine on hold on account of septic shock DVT Prophylaxis: Lovenox Code status: full code Prognosis: very poor. I spoke to his ex-, who is his healthcare POA; she stated that she understood he was very sick and while she was hoping for the best, she appreciated the dire situation she was seen. She was wait for EEG results to come back and based on the results, she will decide whether to maintaining full code. Inpatient E&M: [id number] Subs Hosp L3
[2019-07-05 11:16] LABS: Base Excess -21 mmol/L (-2 to +2); Bicarbonate 7.4 mmol/L (22-26); Blood Gas Specimen Type ART; FI02 30; Mode A-C; O2 Delivery Device Vent; PEEP 5; PO2 97 mmHG (75-100); RR 12; SITE L Radial; SO2 96 % (95-99); Time Given 1104; Total Carbon Dioxide 8 mmol/L; Vt 450; pCO2 19.1 mmHg (35-45)
[2019-07-05 11:29] LABS: International Normalized Ratio 3.7
[2019-07-05 12:02] LABS: Prothrombin Time (Protime)PT. 36.8 SECONDS (11.7-14.9)
[2019-07-05] MEDS: Hydrocortisone Sod Succinate 100 MG/2 ML Vial 50 MG IV (12:16)
[2019-07-05 13:00] LABS: Bedside Glucose 31 mg/dL (70-110)
[2019-07-05 14:21] LABS: Bedside Glucose 44 mg/dL (70-110)
--- NOTE | 2019-07-05 15:59 | CHAPLAIN ---
Type of Pastoral Visit ___ Initial Visit ___ Follow-up Visit ___ On-call Visit ___ General Patient Visit ___ Spiritual Assessment ___ Family Conference _x__ Bereavement ___ Rapid Response ___ Code Blue ___ Other (describe below) Pastoral Care Referral From ___ Patient _x__ Family _x__ Nurse ___ Physician ___ [employer] Or [employer] ___ Casting And Pasting Supervisor ___ Other (describe below) Sacrament/Intervention ___ Active listening ___ Anointing ___ Rastafari _x__ Bereavement ___ Communion ___ Colette exploration ___ ___ Life review ___ Prayer ___ Reconciliation ___ Sacrament of Sick _x__ Supportive presence ___ Wedding ___ Other (describe below) Pastoral Comments came to offer support of family members immediately after of patient; family indicates pt did not have any synagogue affiliation but would welcome presence of this keg inspector; welcomed other family members as they came into unit; brought ricardo lopez from bereavement committee to family; offered ongoing support as desired
--- NOTE | 2019-07-05 16:05 | PCM.DEATH ---
Preliminary Cause of septic shock due to community acquired pneumonia and UTI Date of Admission: 07/03/19 Date of : 07/05/19 - Principle Diagnosis septic shock due to community acquired pneumonia and UTI actue hypoxic respiratory failure CARLOS EDUARDO on CKD IV anion gap metabolic acidosis acute metabolic encephalopathy Problem List: Active and Suspected Problems (Last Reviewed 05/31/19 @ 14:31 by Eboni Jacinto) Severe sepsis (Acute) Bilateral pneumonia (Acute) Acute hypoxic respiratory failure (Acute) Acute hypoxemic respiratory failure (Acute) UTI (urinary tract infection) (Acute) Pneumonia (Acute) Pulmonary edema (Acute) Elevated troponin (Acute) Hospital Course Patient is a 64-year-old male with a history as outlined below who was admitted through the ED on July 03, 2019 with a complaint of shortness of breath. Family had been concerned about patient's health over the last years as he had been declining in health. He had CABG in 2008 also had RASHID for which he was noncompliant with his nocturnal CPAP. He had been admitted at [facility] in January 2019 for small bowel obstruction with exploratory laparotomy and adhesio lysis and also had severe protein calorie malnutrition. In the ED, shortness of breath progressively worsened, and he was tachycardic and also hypotensive. Patient was emergently intubated in the ED. Chest x-ray done showed bilateral lower lobe pneumonia and EKG showed sinus tachycardia. Subsequent EKG showed ST depression in the inferior lateral leads and cardiology was consulted. He was admitted to the ICU and managed for acute hypoxic respiratory failure due to community-acquired pneumonia. CT of the abdomen and pelvis done showed mild degree of ascites with bilateral hydronephrosis and diffusely thickened urinary bladder wall. Was therefore believe that patient also had a urinary tract infection. Patient remained hypotensive and febrile as well as tachycardic. He was started on IV vancomycin and Zosyn. Patient's troponin was initially 0.751 but this peaked at 11 and so he was also diagnosed with non-STEMI. 2D echo done showed EF of 20% with RVSP of 48 mmHg and severe segmental left ventricular dysfunction. Cardiology did not recommend any repeat cath and he was put on Lovenox and 5 mg daily for anticoagulation. Patient remained severely sedated and remained hypotensive requiring starting of Levophed and with vasopressin been added on subsequently. Patient also however not responding. He was also managed for CARLOS EDUARDO on CKD stage IV as creatinine was 3.27 and urology was consulted. Patient became anuric and had to have a temporary dialysis catheter placed for dialysis. CT head of the brain was obtained which showed chronic involutional changes but bilateral maxillary sinusitis. Urine cultures grew gram-negative rods with lactose patient support representative along with possible Pseudomonas and strep and urine Legionella antigens were negative. Respiratory viral panel was also negative and sputum cultures showed normal respiratory cynthia. He had EEG done which was difficult to interpret due to obscuration from movement infarct but appeared to show slow continuous generalized pattern suggestive of severe diffuse encephalopathy. Patient results of EEG in patients poor prognosis, discussion was had with family, and POA elected to switch patient's CODE STATUS to DNR CCA. Patient decompensated shortly after and went into asystole. He subsequently and time of was declared at 2:14 PM on 07/05/2019. Inpatient E&M: [id number] Disch Hosp
--- NOTE | 2019-07-05 16:27 | NURSING ---
PATIENT ASYSTOLE AT 1414 CLAUD[address]KS AT BEDSIDE, CONFRIMED WITH DR KONG. TIME OF 1414
[2019-07-06 08:00] LABS: Bedside Glucose 46 mg/dL (70-110)
[2019-07-06 08:00] LABS: Bedside Glucose 21 mg/dL (70-110)
[2019-07-06 08:00] LABS: Bedside Glucose 43 mg/dL (70-110)
[2019-07-06 08:00] LABS: Bedside Glucose 36 mg/dL (70-110)
[2019-07-06 09:18] LABS: Hepatitis B Core Ab Total Negative (Negative)
--- NOTE | 2019-07-11 11:54 | CASEMGMT ---
MEAGAN ESTRADA NOTE: VM message received from SEAN Melendez @ [facility], inquiring about an update on pt, as she received notification pt was discharged. Call placed to Nora @ [phone] and she was notified that pt 07/05/19. She thanked MEAGAN ESTRADA for the update. Isabel WHITE RN, CM
== END 2019-07-05 18:00 | DRG 720 ==
LOC: ED 09:30 → ICU 14:22
PROVIDERS: Internal Medicine Cardiovascular Disease; Internal Medicine Critical Care Medicine; Internal Medicine Nephrology; Admitting Provider Internal Medicine; Emergency Provider Emergency Medicine; PCP Family Medicine; Visit Provider Student in an Organized Health Care Education/Training Program
DX: A41.9 Sepsis, unspecified organism (principal); J96.01 Acute respiratory failure with hypoxia; Z68.1 Body mass index [BMI] 19.9 or less, adult; N39.0 Urinary tract infection, site not specified; E43 Unspecified severe protein-calorie malnutrition; N13.30 Unspecified hydronephrosis; R65.21 Severe sepsis with septic shock; J18.9 Pneumonia, unspecified organism; E83.42 Hypomagnesemia; I21.4 Non-ST elevation (NSTEMI) myocardial infarction; N40.0 Benign prostatic hyperplasia without lower urinary tract symptoms; Z66 Do not resuscitate; E87.6 Hypokalemia; E87.0 Hyperosmolality and hypernatremia; N18.4 Chronic kidney disease, stage 4 (severe); I73.00 Raynaud's syndrome without gangrene; I25.10 Atherosclerotic heart disease of native coronary artery without angina pectoris; Z86.73 Personal history of transient ischemic attack (TIA), and cerebral infarction without residual deficits; Z95.1 Presence of aortocoronary bypass graft; G93.41 Metabolic encephalopathy; E87.2 Acidosis; G47.33 Obstructive sleep apnea (adult) (pediatric); N17.0 Acute kidney failure with tubular necrosis; F17.200 Nicotine dependence, unspecified, uncomplicated
CPT/HCPCS: 31500; 31720; 36556; 36600; 51702; 70450; 71045; 74176; 76770; 80048; 80053; 80076; 80202; 81001; 82140; 82436; 82570; 82803; 82962; 83605; 83735; 83880; 84100; 84133; 84156; 84300; 84443; 84484; 85025; 85610; 85730; 86704; 86706; 87040; 87070; 87077; 87086; 87088; 87186; 87205; 87340; 87449; 87633; 87640; 87641; 87804; 90937; 93005; 93306; 94002; 94003; 94640; 95819; 97162; 97802; 99251; 99285; J7030; J7040; J7050; Q9957; A4216; C1751; C1752; G0257; G0463; J0330; J3490